=== PATIENT | male | born 1980 | race Caucasian/White ===

== ENCOUNTER 2017-10-04 23:29 | Inpatient (IN) | payer MEDICARE, MEDICAID, SELFPAY | END 2017-10-06 10:05 | disposition home or self-care (01) | DRG 639 | PROVIDERS: Admitting Provider Emergency Medicine; Emergency Provider Emergency Medicine; Family Provider Nurse Practitioner Family; Visit Provider Emergency Medicine | DX: E11.10 Type 2 diabetes mellitus with ketoacidosis without coma (principal); I10 Essential (primary) hypertension | CPT/HCPCS: 36415; 71020; 80048; 80053; 81001; 82009; 82150; 82550; 82553; 82803; 82947; 82962; 83690; 83735; 84100; 84484; 85025; 87275; 87276; 87486; 87581; 87633; 87798; 93005; 96365; 96367; 96375; 99285; J2405 ==

== ENCOUNTER 2017-12-13 17:33 | Emergency (ER) | payer MEDICARE, OTHER, SELFPAY ==
[2017-12-13 17:35] VITALS: BP 204/125; PULSE 135; RESP 28; O2SAT 100; BMI 23.0
--- NOTE | 2017-12-13 17:37 | XR_ITS ---
XR chest portable HISTORY: ITS.REASON: hyperglycemia, loss of consciousness ORDERING PHYSICIAN: Girish Bennett MD PATIENT AGE: 37 years COMPARISON: 10/14/2017 FINDINGS: Borderline cardiomegaly without failure.. The lungs are clear without infiltrates, suspicious nodules, or pleural effusions. No acute bony abnormalities. IMPRESSION: Borderline cardiomegaly otherwise negative
[2017-12-13 17:39] LABS: ABG Base Excess -30.1 mmol/L (-2.4-2.3); ABG HCO3 2.2 mmhg (22.0-26.0); ABG Oxygen Saturation 98 % (90-100); ABG PO2 136.7 mmhg (80-100); ABG TCO2 2.6 mmhg (23-27)
[2017-12-13 17:41] LABS: Allen's Test Acceptable; Oxygen ROOM AIR %; Source Right Radial
[2017-12-13 17:42] LABS: ABG PCO2 10.7 mmhg (35.0-45.0); ABG PH 6.94 mmol/L (7.35-7.45)
[2017-12-13 17:53] LABS: Basophils # 0.1 K/mm3 (0-0.2); Basophils % 0.4 % (0.1-2.0); Eosinophils # 0.1 K/mm3 (0.0-0.4); Eosinophils % 0.5 % (0.1-12.0); Hematocrit 49.5 % (42.0-52.0); Hemoglobin 13.4 g/dL (14.1-18.0); Lymphocytes # 3.4 K/mm3 (0.7-4.5); Lymphocytes % 12.8 K/mm3 (10-50); Mean Corpuscular Volume 114.8 fl (80-94); Mean Platelet Volume 10.7 fl (7.4-10.4); Monocytes % 3.9 % (1.7-9.3); Neutrophils # 21.7 K/mm3 (1.8-7.8); Neutrophils % 82.4 % (37.0-80.0); Platelet Count 320 K/mm3 (142-424); Red Blood Count 4.31 M/mm3 (4.60-6.20); Red Cell Distribution Width 12.6 % (11.5-17.5); White Blood Count 26.4 K/mm3 (4.8-10.8)
[2017-12-13 17:59] LABS: MANUAL DIFFERENTIAL MANUAL DIFFERENTIAL (MANUAL DIFF)
--- NOTE | 2017-12-13 18:05 | PC.NURSE ---
SPOKE WITH KIRSTEN ELLISON REGARDING INSULIN DRIP AND SODIUM BICARB DRIP ; RECEIVED ORDERS FOR 6 UNITS BEING OK TO START FOR INSULIN AND FOR 160MEQ PER HR MIXING ONE AMP OF SODIUM BICARB IN A LITER OF NORMAL SALINE BAG. [facility] N[facility] NOTIFIED AND INFORMATION GIVEN.
[2017-12-13 18:06] LABS: Acetone, Serum (Rapid) Moderate (None Detect)
[2017-12-13 18:30] VITALS: BP 172/81; PULSE 125; O2SAT 100
--- NOTE | 2017-12-13 18:37 | PC.NURSE ---
1837- spoke with lab called critical values but are required to re draw d/t hemolized.
[2017-12-13 18:42] LABS: Lymphocytes % 5 % (10-50); Macrocytosis 2+; Monocytes % 1 % (2-9); Neutrophils % 92 % (42-76); Platelet Estimate Slight Increase; Total Cells Counted 100
--- NOTE | 2017-12-13 18:48 | HMH.EDGENADL ---
ED Disposition Clinical Impression: Dehydration Diabetic ketoacidosis Qualifiers: Diabetes mellitus type: type 2 Diabetes mellitus complication detail: without coma Qualified Code(s): E11.10 - Type 2 diabetes mellitus with ketoacidosis without coma Change in mental status Qualifiers: Altered mental status type: unspecified Qualified Code(s): R41.82 - Altered mental status, unspecified Leukocytosis Qualifiers: Leukocytosis type: other Qualified Code(s): D72.828 - Other elevated white blood cell count Disposition: Xfer Short-Term Hosp Condition on Discharge: Serious Time of Disposition: 19:39 - Critical Care Critical Care Time: Yes Attestation: On 12/13/17, the high probability of a clinically significant, sudden or life threatening deterioration of the following system(s) required my full and direct attention, intervention and personal management. The time I documented below is in addition to time spent performing reported procedures but includes the following listed in this critical care notation. Total Critical Care Time: 90 Vital system(s) involved:: Central Nervous System, Metabolic Failure My critical care processes included: Assessment & monitoring of V/S, Initial and Re-exams, Data Review/Interpretation, Coordinating Care, Medication Orders and management, Documentation Medical Decision Making - Medical Records Medical records reviewed: Yes: I reviewed the patient's medical records. Vital Signs: 12/13/17 17:35 12/13/17 18:30 Pulse Rate [Right Radial] 135 H 125 H Respiratory Rate 28 H Blood Pressure [Right Arm] 204/125 172/81 Blood Pressure Mean [Right Arm] 151 111 Blood Pressure Source [Right Arm] Manual Cuff/ Doppler Blood Pressure Position [Right Arm] Supine 02 Sat by Pulse Oximetry 100 100 Oxygen Delivery Method Room Air Room Air - Lab Data Lab results reviewed: Yes: I reviewed the patient's lab results. Lab Results 12/13/17 17:36: Specimen Source Right radial, O2 % Room air, ABG pH 6.94 L*, ABG pCO2 10.7 L, ABG pO2 136.7 H, ABG HCO3 2.2 L, ABG Total CO2 2.6 L, ABG O2 Saturation 98, ABG Base Excess -30.1 L, Layton Test Acceptable 12/13/17 17:37: WBC 26.4 H*, RBC 4.31 L, Hgb 13.4 L, Hct 49.5, MCV 114.8 H, MCH 31.0, MCHC 27.0 L, RDW 12.6, Plt Count 320, MPV 10.7 H, Neut % (Auto) 82.4 H, Lymph % (Auto) 12.8, [place] % (Auto) 3.9, Eos % (Auto) 0.5, Baso % (Auto) 0.4, Neut # (Auto) 21.7 H, Lymph # (Auto) 3.4, [place] # (Auto) 1.0, Eos # (Auto) 0.1, Baso # (Auto) 0.1, Total Counted 100, Neutrophils % (Manual) 92 H, Lymphocytes % (Manual) 5 L, Monocytes % (Manual) 1 L, Metamyelocytes % 2.0 H, Platelet Estimate Slight increase, Macrocytosis 2+ 12/13/17 18:16: Urine Color Yellow, Urine Appearance Clear, Urine pH 5.5, Ur Specific [place] 1.020, Urine Protein 1+, Urine Glucose (UA) 3+, Urine Ketones 3+, Urine Blood Trace-i, Urine Nitrate Negative, Urine Bilirubin Negative, Urine Urobilinogen 0.2, Ur Leukocyte Esterase Negative 12/13/17 18:16: Urine Opiates Screen Negative, Ur Barbituates Screen Negative, Ur Phencyclidine Scrn Negative, Ur Amphetamines Screen Negative, U Methamphetamines Scrn Negative, U Benzodiazepines Scrn Negative, Urine Cocaine Screen Negative, U Marijuana (THC) Screen Negative 12/13/17 18:45: Sodium 148 H, Potassium 4.9, Chloride 103, Carbon Dioxide 9 L*, Anion Gap 40.9 H, BUN 59 H, Creatinine 3.60 H, Estimated Creat Clear 32, Estimated GFR 19 L*, Est GFR ( Amer) 23 L, Glucose 919 H*, Calcium 8.1 L, Total Bilirubin 0.5, AST 56 H, ALT 132 H, Alkaline Phosphatase 337 H, Total Creatine Kinase 97, CK-MB (CK-2) 1.6, CK-MB (CK-2) Rel Index 1.6, Troponin I < 0.02, Total Protein 5.8 L, Albumin 2.6 L, Globulin 3.2, Albumin/Globulin Ratio 0.8 L 12/13/17 18:45: Lactic Acid 7.7 H 12/13/17 : Acetone Level Moderate Result diagrams: 12/13/17 17:37 12/13/17 18:45 Orders (Tests/Meds): ED MEDICATIONS Generic Name Dose Route Start Last Admin Trade Name Freq PRN Reason Stop Dose Admin Sodium Chlor
--- NOTE | 2017-12-13 18:51 | ED_ITS ---
ED Disposition Clinical Impression: Dehydration Diabetic ketoacidosis Qualifiers: Diabetes mellitus type: type 2 Diabetes mellitus complication detail: without coma Qualified Code(s): E11.10 - Type 2 diabetes mellitus with ketoacidosis without coma Change in mental status Qualifiers: Altered mental status type: unspecified Qualified Code(s): R41.82 - Altered mental status, unspecified Leukocytosis Qualifiers: Leukocytosis type: other Qualified Code(s): D72.828 - Other elevated white blood cell count Disposition: Xfer Short-Term Hosp Condition on Discharge: Serious Time of Disposition: 19:39 - Critical Care Critical Care Time: Yes Attestation: On 12/13/17, the high probability of a clinically significant, sudden or life threatening deterioration of the following system(s) required my full and direct attention, intervention and personal management. The time I documented below is in addition to time spent performing reported procedures but includes the following listed in this critical care notation. Total Critical Care Time: 90 Vital system(s) involved:: Central Nervous System, Metabolic Failure My critical care processes included: Assessment & monitoring of V/S, Initial and Re-exams, Data Review/Interpretation, Coordinating Care, Medication Orders and management, Documentation Medical Decision Making - Medical Records Medical records reviewed: Yes: I reviewed the patient's medical records. Vital Signs: 12/13/17 17:35 12/13/17 18:30 Pulse Rate [Right Radial] 135 H 125 H Respiratory Rate 28 H Blood Pressure [Right Arm] 204/125 172/81 Blood Pressure Mean [Right Arm] 151 111 Blood Pressure Source [Right Arm] Manual Cuff/ Doppler Blood Pressure Position [Right Arm] Supine 02 Sat by Pulse Oximetry 100 100 Oxygen Delivery Method Room Air Room Air - Lab Data Lab results reviewed: Yes: I reviewed the patient's lab results. Lab Results 12/13/17 17:36: Specimen Source Right radial, O2 % Room air, ABG pH 6.94 L*, ABG pCO2 10.7 L, ABG pO2 136.7 H, ABG HCO3 2.2 L, ABG Total CO2 2.6 L, ABG O2 Saturation 98, ABG Base Excess -30.1 L, Layton Test Acceptable 12/13/17 17:37: WBC 26.4 H*, RBC 4.31 L, Hgb 13.4 L, Hct 49.5, MCV 114.8 H, MCH 31.0, MCHC 27.0 L, RDW 12.6, Plt Count 320, MPV 10.7 H, Neut % (Auto) 82.4 H, Lymph % (Auto) 12.8, [place] % (Auto) 3.9, Eos % (Auto) 0.5, Baso % (Auto) 0.4, Neut # (Auto) 21.7 H, Lymph # (Auto) 3.4, [place] # (Auto) 1.0, Eos # (Auto) 0.1, Baso # (Auto) 0.1, Total Counted 100, Neutrophils % (Manual) 92 H, Lymphocytes % (Manual) 5 L, Monocytes % (Manual) 1 L, Metamyelocytes % 2.0 H, Platelet Estimate Slight increase, Macrocytosis 2+ 12/13/17 18:16: Urine Color Yellow, Urine Appearance Clear, Urine pH 5.5, Ur Specific [place] 1.020, Urine Protein 1+, Urine Glucose (UA) 3+, Urine Ketones 3 +, Urine Blood Trace-i, Urine Nitrate Negative, Urine Bilirubin Negative, Urine Urobilinogen 0.2, Ur Leukocyte Esterase Negative 12/13/17 18:16: Urine Opiates Screen Negative, Ur Barbituates Screen Negative, Ur Phencyclidine Scrn Negative, Ur Amphetamines Screen Negative, U Methamphetamines Scrn Negative, U Benzodiazepines Scrn Negative, Urine Cocaine Screen Negative, U Marijuana (THC) Screen Negative 12/13/17 18:45: Sodium 148 H, Potassium 4.9, Chloride 103, Carbon Dioxide 9 L*, Anion Gap 40.9 H, BUN 59 H, Creatinine 3.60 H, Estimated Creat Clear 32, Estimated GFR 19 L*, Est GFR ( Amer) 23 L, Glucose 919 H*, Calcium 8.1 L , Total Bilirubin 0.5, AST 56 H, ALT 132 H, Alkaline Phosphatase 337 H, Total Creatine Ki
[2017-12-13 19:09] LABS: Alanine Aminotransferase 132 U/L (12-78); Albumin Level 2.6 gm/dL (3.4-5.0); Albumin/Globulin Ratio 0.8 (1.1-1.8); Alkaline Phosphatase 337 U/L (46-116); Aspartate Amino Transferase 56 U/L (15-37); Bilirubin,Total 0.5 mg/dL (0.2-1.0); Blood Urea Nitrogen 59 mg/dL (7-18); Calcium 8.1 mg/dL (8.5-10.1); Chloride 103 mmol/L (98-107); Creatine Kinase 97 U/L (39-308); Creatinine Clearance Estimated 32 mL/min (0-300); Estimated Glomerular Filt Rate 19 ml/min (>60); GFR (African American) 23 ML/MIN (>60); Globulin 3.2 gm/dl (1.3-3.2); Total Protein,Serum 5.8 gm/dL (6.4-8.2)
[2017-12-13 19:11] LABS: Carbon Dioxide 9 mmol/L (21.0-32.0)
[2017-12-13 19:12] LABS: Potassium 4.9 mmoL/L (3.5-5.1); Sodium 148 mmol/L (136-145)
[2017-12-13 19:15] LABS: Lactic Acid 7.7 mmol/L (0.4-2.0)
[2017-12-13 19:16] LABS: Microscopic, Urine URINE MICROSCOPIC (MICROSCOPIC)
[2017-12-13 19:21] LABS: Appearance,Urine CLEAR (Clear); Bilirubin,Urine Negative (Negative); Blood, Urine TRACE-I (Negative); Color,Urine YELLOW (Yellow); Glucose,Urine (UA) 3+ (Negative); Ketones,Urine 3+ (Negative); Leukocyte Esterase,Urine Negative (Negative); Nitrate,Urine Negative (Negative); PH,Urine 5.5 (5.0-8.5); Protein,Urine 1+ (Negative); Urobilinogen,Urine 0.2 EU/dl (0.2)
[2017-12-13 19:21] LABS: Anion Gap 40.9 mEq/L (5-15); Glucose 919 mg/dL (74-106)
[2017-12-13 19:30] LABS: ABG Base Excess -18.1 mmol/L (-2.4-2.3); ABG HCO3 8.4 mmhg (22.0-26.0); ABG Oxygen Saturation 95 % (90-100); ABG PH 7.29 mmol/L (7.35-7.45)
[2017-12-13 19:36] LABS: CKMB Relative Index 1.6 U/L (0-4.0); Creatine Kinase MB 1.6 mg/ml (0.0-3.6); Troponin I < 0.02 ng/ml (0.00-0.06)
[2017-12-13 19:36] LABS: Amphetamine/Metha Screen,Urine Negative ng/mL (<1000); Barbiturates Screen,Urine Negative ng/mL (<200); Benzodiazepines Screen,Urine Negative ng/mL (200); Cannabinoid Screen,Urine Negative ng/mL (<50); Cocaine Screen,Urine Negative ng/g (<300); Methadone Screen,Urine Negative ng/mL (<300); Opiate Screen,Urine Negative ng/mL (<300); Phencyclidine Screen,Urine Negative ng/mL (<25)
[2017-12-13 19:53] VITALS: BP 100/48; PULSE 109; RESP 28; TEMP 36.7; O2SAT 99
--- NOTE | 2017-12-13 19:54 | PC.NURSE ---
ARRANGEMENTS MAD FOR TRANSFER TO [facility] TO SERVICES DR CABRALES WITH DX DKA
[2017-12-13 20:05] LABS: Bacteria,Urine Trace /lpf; Squamous Epithelial Cell,Urine Occasional #/hpf (0-5); White Blood Cell Casts,Urine Occasional #/lpf (0)
[2017-12-13 21:26] VITALS: BP 108/52; PULSE 106; RESP 28; TEMP 37.7; O2SAT 94
[2017-12-13 22:00] VITALS: BP 108/52; PULSE 106; RESP 28; TEMP 37.3; O2SAT 94
[2017-12-13 22:48] LABS: Reflex Lactic Add Lactic Reflex
[2017-12-14 04:20] LABS: Allen's Test Patient Unable; Oxygen room air %
[2017-12-14 04:21] LABS: ABG PCO2 17.8 mmhg (35.0-45.0)
[2017-12-14 09:58] LABS: POC Glucose,Bedside > 600 mg/dL
[2017-12-14 09:58] LABS: POC Glucose,Bedside > 600 mg/dL
[2018-01-05 14:01] LABS: POC Glucose,Bedside > 600 mg/dL (70-110)
== END 2017-12-13 22:01 | disposition short-term general hospital (02) ==
PROVIDERS: Emergency Medicine; Emergency Provider Emergency Medicine; Family Provider Emergency Medicine
DX: E11.10 Type 2 diabetes mellitus with ketoacidosis without coma (principal); E86.0 Dehydration; R41.82 Altered mental status, unspecified; D72.828 Other elevated white blood cell count; Z88.0 Allergy status to penicillin; Z79.4 Long term (current) use of insulin
CPT/HCPCS: 71045; 80053; 80305; 81001; 82009; 82550; 82553; 82803; 82962; 83605; 84484; 85007; 85025; 87040; 93005; 93041; 96365; 96366; 96367; 96375; 96376; 99283; 99284

== ENCOUNTER 2017-12-19 19:36 | Emergency (ER) | payer MEDICARE, OTHER, SELFPAY ==
[2017-12-19 23:00] VITALS: BP 178/108; PULSE 93; RESP 20; TEMP 36.8; O2SAT 99; BMI 58.6
[2017-12-19 23:32] LABS: UTC Influenza A Antigen Negative (Negative); UTC Influenza B Antigen Negative (Negative)
--- NOTE | 2017-12-19 23:37 | HMH.EDUTC ---
[facility] [place] Disposition Clinical Impression: Influenza-like illness Disposition: Left Against Medical Advice Condition on Discharge: Fair Additional Instructions: * As we discussed, these are flu like symptoms but considering your recent inpatient admission, past medical history, blood sugar of 410, negative flu test you need further evaluation to ensure this is not something else causing your symptoms. I recommend you be seen in ER. I understand wanting to get your kids home but if you get worse, you can go down hill fast. Seek treatment immediately for new or worsening symptoms. Call PCP first thing in the morning. You can be there at 9am, tell them you were here and they will work you in. Monitor blood sugar closely tonight. Referrals: Ange Kuhn PA [Primary Care Provider] - (be there at 9am and they will fit you in. Tell them you were here tonight, we recommended ER evaluation but you declined. ) Time of Disposition: 00:10 Medical Decision Making Vital Signs: 12/19/17 23:00 12/20/17 00:10 Temperature 98.3 F 98 F Temperature Source Temporal Artery Scan Pulse Rate 87 Pulse Rate [Right Radial] 93 H Respiratory Rate 20 20 Blood Pressure 168/91 Blood Pressure [Right Arm] 178/108 Blood Pressure Mean [Right Arm] 131 Blood Pressure Source [Right Arm] Automatic Cuff Blood Pressure Position [Right Arm] Sitting 02 Sat by Pulse Oximetry 99 Oxygen Delivery Method Room Air - Lab Data Lab results reviewed: Yes: I reviewed the patient's lab results. Lab Results 12/19/17 23:02: Influenza Type A Ag Negative, Influenza Type B Ag Negative 12/19/17 23:48: POC Glucose 410 - Michael Inquiry Pt receiving controlled substance: No - Reevaluation(s) Reevaluation #1: HPI, exam, possible differentials, results and risks associated with not treating each differential discussed at length with patient and . Discussed further evaluation to rule out other causes of symptoms before contributing this entirely to flu like illness. pt refusing further workup tonight rather in UTC or ER. Pt not concerned about blood sugar. Administered novolog on his own after results given to him. Wanting to leave and get children to bed. will call PCP in morning but pt won't agree to any further evaluation tonight despite the risk of acutely worsening tonight. [facility] [place] HPI - General Stated complaint: body pain Time Seen by Provider: 12/19/17 23:37 Mode of Arrival: Family Vehicle Source of Information: Patient Limitations: No Limitations Description of Symptoms (Recalled from Triage Doc. by RN): PT C/O FLU LIKE SYMPTOMS. HEENT Symptoms (Recalled from RN notes): Yes (FLU LIKE SYMPTOMS) Resp Symptoms (Recalled from RN notes): No Skin Symptoms (Recalled from RN notes): No MS Symptoms (Recalled from RN notes): No Functional Status (Recalled from RN notes): NA - History of Present Illness Provider Complaint: c/o I think I have the flu . worsening bodyaches (hx of diabetic neuropathy and reports chronically hurts all over) and fatigue starting 4-5 hours ago. Hasn't taken or tried anything for symptoms. Exposed to flu less then one week ago. Hx of Type I DM. Admitted 12/14-12/17 w/ DKA. Blood sugars today 100-500. pt not alarmed and reports a simple cold makes them go that high . Last FSBG at 3pm and doesn't remember results. Doesn't feel as bad as I felt when I came in then - Related Data Home Medications Medication Instructions Recorded Confirmed Gabapentin [Gabapentin 800mg Tab] 800 mg PO QID 12/19/17 12/19/17 Insulin Aspart [Novolog] 100 unit SQ DAILY 12/19/17 12/19/17 Insulin Glargine,Hum.rec.anlog 44 unit SQ DAILY 12/19/17 12/19/17 [Lantus Insulin 100units/mL 10mL vial] Allergies Allergy/AdvReac Type Severity Reaction Status Date / Time Penicillins [PENICILLINS] Allergy Severe I-HIVES Verified 12/13/17 17:45 - Worker's Comp Is this a Worker's Comp case?: No [facility] History I have reviewed the patient's pa
--- NOTE | 2017-12-19 23:46 | ED_ITS ---
[facility] [place] [facility] [place] Clinical Impression: Influenza-like illness Disposition: Left Against Medical Advice Condition on Discharge: Fair Additional Instructions: * As we discussed, these are flu like symptoms but considering your recent inpatient admission, past medical history, blood sugar of 410, negative flu test you need further evaluation to ensure this is not something else causing your symptoms. I recommend you be seen in ER. I understand wanting to get your kids home but if you get worse, you can go down hill fast. Seek treatment immediately for new or worsening symptoms. Call PCP first thing in the morning. You can be there at 9am, tell them you were here and they will work you in. Monitor blood sugar closely tonight. Referrals: Ange Kuhn PA [Primary Care Provider] - (be there at 9am and they will fit you in. Tell them you were here tonight, we recommended ER evaluation but you declined. ) Time of Disposition: 00:10 Medical Decision Making Vital Signs: 12/19/17 23:00 12/20/17 00:10 Temperature 98.3 F 98 F Temperature Source Temporal Artery Scan Pulse Rate 87 Pulse Rate [Right Radial] 93 H Respiratory Rate 20 20 Blood Pressure 168/91 Blood Pressure [Right Arm] 178/108 Blood Pressure Mean [Right Arm] 131 Blood Pressure Source [Right Arm] Automatic Cuff Blood Pressure Position [Right Arm] Sitting 02 Sat by Pulse Oximetry 99 Oxygen Delivery Method Room Air - Lab Data Lab results reviewed: Yes: I reviewed the patient's lab results. Lab Results 12/19/17 23:02: Influenza Type A Ag Negative, Influenza Type B Ag Negative 12/19/17 23:48: POC Glucose 410 - Michael Inquiry Pt receiving controlled substance: No - Reevaluation(s) Reevaluation #1: HPI, exam, possible differentials, results and risks associated with not treating each differential discussed at length with patient and . Discussed further evaluation to rule out other causes of symptoms before contributing this entirely to flu like illness. pt refusing further workup tonight rather in UTC or ER. Pt not concerned about blood sugar. Administered novolog on his own after results given to him. Wanting to leave and get children to bed. will call PCP in morning but pt won't agree to any further evaluation tonight despite the risk of acutely worsening tonight. [facility] [place] - General Stated complaint: body pain Time Seen by Provider: 12/19/17 23:37 Mode of Arrival: Family Vehicle Source of Information: Patient Limitations: No Limitations Description of Symptoms (Recalled from Triage Doc. by RN): PT C/O FLU LIKE SYMPTOMS. HEENT Symptoms (Recalled from RN notes): Yes (FLU LIKE SYMPTOMS) Resp Symptoms (Recalled from RN notes): No Skin Symptoms (Recalled from RN notes): No MS Symptoms (Recalled from RN notes): No Functional Status (Recalled from RN notes): NA - History of Present Illness Provider Complaint: c/o I think I have the flu . worsening bodyaches (hx of diabetic neuropathy and reports chronically hurts all over) and fatigue starting 4-5 hours ago. Hasn't taken or tried anything for symptoms. Exposed to flu less then one week ago. Hx of Type I DM. Admitted 12/14-12/17 w/ DKA. Blood sugars today 100-500. pt not alarmed and reports a simple cold makes them go that high . Last FSBG at 3pm and doesn't remember results. Doesn't feel as bad as I felt when I came in then - Related Data Home Medications Medication Instructions Recorded Confirmed
[2017-12-19 23:55] LABS: POC Glucose,Bedside 410 mg/dL
[2017-12-20 00:10] VITALS: BP 168/91; PULSE 87; RESP 20; TEMP 36.6; O2SAT 99
== END 2017-12-20 00:11 | disposition left against medical advice (07) ==
PROVIDERS: Emergency Provider Nurse Practitioner Family; Family Provider Emergency Medicine; PCP Physician Assistant
DX: J10.1 Influenza due to other identified influenza virus with other respiratory manifestations (principal); E10.65 Type 1 diabetes mellitus with hyperglycemia; E10.40 Type 1 diabetes mellitus with diabetic neuropathy, unspecified; Z79.4 Long term (current) use of insulin; Z88.0 Allergy status to penicillin
CPT/HCPCS: G0463; 82962; 87804; 99202

== ENCOUNTER 2017-12-28 20:44 | Emergency (ER) | payer MEDICARE, OTHER, SELFPAY ==
[2017-12-28 20:48] VITALS: BP 177/95; PULSE 105; RESP 22; TEMP 36.6; O2SAT 98; BMI 28.8
[2017-12-28 21:10] LABS: Basophils # 0.1 K/mm3 (0-0.2); Basophils % 0.5 % (0.1-2.0); Eosinophils # 0.3 K/mm3 (0.0-0.4); Eosinophils % 2.2 % (0.1-12.0); Hematocrit 44.1 % (42.0-52.0); Hemoglobin 13.5 g/dL (14.1-18.0); Lymphocytes # 2.3 K/mm3 (0.7-4.5); Lymphocytes % 17.6 K/mm3 (10-50); Mean Corpuscular HGB Conc 30.5 g/dL (31.8-35.4); Mean Corpuscular Hemoglobin 31.5 pg (27.0-31.2); Mean Corpuscular Volume 103.1 fl (80-94); Mean Platelet Volume 9.4 fl (7.4-10.4); Monocytes # 0.3 K/mm3 (0.1-1.0); Monocytes % 2.6 % (1.7-9.3); Neutrophils # 9.9 K/mm3 (1.8-7.8); Neutrophils % 77.2 % (37.0-80.0); Platelet Count 381 K/mm3 (142-424); Red Blood Count 4.28 M/mm3 (4.60-6.20); Red Cell Distribution Width 12.9 % (11.5-17.5); White Blood Count 12.9 K/mm3 (4.8-10.8)
--- NOTE | 2017-12-28 21:15 | HMH.EDGENADL ---
ED Disposition Clinical Impression: Hyperglycemia, Renal insufficiency Diabetes mellitus Qualifiers: Diabetes mellitus type: type 1 Diabetes mellitus complication status: with kidney complications Diabetes mellitus complication detail: with chronic kidney disease Chronic kidney disease stage: unspecified stage Qualified Code(s): E10.22 - Type 1 diabetes mellitus with diabetic chronic kidney disease Disposition: Home, Self-Care Condition on Discharge: Good Instructions: DI for Hyperglycemia -- Adult Additional Instructions: call pcp and endo in am Referrals: Ange Kuhn PA [Primary Care Provider] - - Critical Care Critical Care Time: No Attestation: On 12/28/17, the high probability of a clinically significant, sudden or life threatening deterioration of the following system(s) required my full and direct attention, intervention and personal management. The time I documented below is in addition to time spent performing reported procedures but includes the following listed in this critical care notation. Medical Decision Making - Medical Records Medical records reviewed: Yes: I reviewed the patient's medical records. Vital Signs: 12/28/17 20:48 12/28/17 23:12 Temperature 97.9 F 98.2 F Temperature Source Oral Oral Pulse Rate [Right Radial] 105 H 89 Respiratory Rate 22 16 Blood Pressure [Right Arm] 177/95 138/82 Blood Pressure Mean [Right Arm] 122 100 Blood Pressure Source [Right Arm] Automatic Cuff Automatic Cuff Blood Pressure Position [Right Arm] Sitting Sitting 02 Sat by Pulse Oximetry 98 94 L Oxygen Delivery Method Room Air Nasal Cannula - Lab Data Lab results reviewed: Yes: I reviewed the patient's lab results. Lab Results 12/28/17 21:00: WBC 12.9 H, RBC 4.28 L, Hgb 13.5 L, Hct 44.1, MCV 103.1 H, MCH 31.5 H, MCHC 30.5 L, RDW 12.9, Plt Count 381, MPV 9.4, Neut % (Auto) 77.2, Lymph % (Auto) 17.6, [place] % (Auto) 2.6, Eos % (Auto) 2.2, Baso % (Auto) 0.5, Neut # (Auto) 9.9 H, Lymph # (Auto) 2.3, [place] # (Auto) 0.3, Eos # (Auto) 0.3, Baso # (Auto) 0.1 12/28/17 21:00: Sodium 132 L, Potassium 4.7, Chloride 95 L, Carbon Dioxide 16 L, Anion Gap 25.7 H, BUN 46 H, Creatinine 2.92 H, Estimated Creat Clear 39, Estimated GFR 25 L, Est GFR ( Amer) 30 L, Glucose 738 H*, Calcium 8.8, Total Bilirubin 0.4, AST 53 H, ALT 123 H, Alkaline Phosphatase 341 H, Total Protein 6.9, Albumin 3.4, Globulin 3.5 H, Albumin/Globulin Ratio 1.0 L 12/28/17 21:00: Acetone Level None detected 12/28/17 21:15: Specimen Source Left radial, O2 % room air, ABG pH 7.28 L, ABG pCO2 26.6 L, ABG pO2 88.4, ABG HCO3 12.2 L, ABG Total CO2 13.1 L, ABG O2 Saturation 96, ABG Base Excess -14.5 L, Layton Test Acceptable 12/28/17 21:50: Urine Color Yellow, Urine Appearance Clear, Urine pH 5.5, Ur Specific [place] 1.015, Urine Protein 1+, Urine Glucose (UA) 3+, Urine Ketones 2+, Urine Blood Trace-i, Urine Nitrate Negative, Urine Bilirubin Negative, Urine Urobilinogen 0.2, Ur Leukocyte Esterase Negative, Urine RBC 3-5, Urine WBC Occasional, Ur Squamous Epith Cells Occasional, Urine Bacteria Trace, Urine Mucus Trace 12/28/17 23:19: Sodium 135 L, Potassium 3.9, Chloride 105, Carbon Dioxide 21 D, Anion Gap 12.9, BUN 38 H, Creatinine 2.26 H D, Estimated Creat Clear 51, Estimated GFR 33 L, Est GFR ( Amer) 40 L D, Glucose 414 H* D Result diagrams: 12/28/17 21:00 12/28/17 23:19 Orders (Tests/Meds): ED MEDICATIONS Generic Name Dose Route Start Last Admin Trade Name Freq PRN Reason Stop Dose Admin Sodium Chloride 1,000 mls @ 999 mls/hr 12/28/17 23:30 12/28/17 23:22 Sod Chlor 0.9% 1000ml Bag IV 12/29/17 00:30 999 mls/hr .Q1H1M CASTILLO Administration Discontinued Medications Generic Name Dose Route Start Last Admin Trade Name Freq PRN Reason Stop Dose Admin Sodium Chloride 1,000 mls @ 999 mls/hr 12/28/17 21:00 12/28/17 21:01 Sod Chlor 0.9% 1000ml Bag IV 12/28/17 22:00 999 mls/hr .Q1H1M CASTILLO Administration Sodium Chlori
[2017-12-28 21:25] LABS: ABG Base Excess -14.5 mmol/L (-2.4-2.3); ABG HCO3 12.2 mmhg (22.0-26.0); ABG Oxygen Saturation 96 % (90-100); ABG PCO2 26.6 mmhg (35.0-45.0); ABG PH 7.28 mmol/L (7.35-7.45); ABG PO2 88.4 mmhg (80-100); ABG TCO2 13.1 mmhg (23-27)
[2017-12-28 21:26] LABS: Allen's Test Acceptable; Oxygen room air %
[2017-12-28 21:27] LABS: Source Left Radial
[2017-12-28 21:28] LABS: Alanine Aminotransferase 123 U/L (12-78); Albumin Level 3.4 gm/dL (3.4-5.0); Alkaline Phosphatase 341 U/L (46-116); Anion Gap 25.7 mEq/L (5-15); Aspartate Amino Transferase 53 U/L (15-37); Bilirubin,Total 0.4 mg/dL (0.2-1.0); Blood Urea Nitrogen 46 mg/dL (7-18); Calcium 8.8 mg/dL (8.5-10.1); Carbon Dioxide 16 mmol/L (21.0-32.0); Chloride 95 mmol/L (98-107); Creatinine Clearance Estimated 39 mL/min (0-300); Creatinine,Serum 2.92 mg/dL (0.70-1.30); Estimated Glomerular Filt Rate 25 ml/min (>60); GFR (African American) 30 ML/MIN (>60); Globulin 3.5 gm/dl (1.3-3.2); Potassium 4.7 mmoL/L (3.5-5.1); Sodium 132 mmol/L (136-145); Total Protein,Serum 6.9 gm/dL (6.4-8.2)
[2017-12-28 21:32] LABS: Glucose 738 mg/dL (74-106)
--- NOTE | 2017-12-28 21:33 | ED_ITS ---
ED Disposition Clinical Impression: Hyperglycemia, Renal insufficiency Diabetes mellitus Qualifiers: Diabetes mellitus type: type 1 Diabetes mellitus complication status: with kidney complications Diabetes mellitus complication detail: with chronic kidney disease Chronic kidney disease stage: unspecified stage Qualified Code(s): E10.22 - Type 1 diabetes mellitus with diabetic chronic kidney disease Disposition: Home, Self-Care Condition on Discharge: Good Instructions: DI for Hyperglycemia -- Adult Additional Instructions: call pcp and endo in am Referrals: Ange Kuhn PA [Primary Care Provider] - - Critical Care Critical Care Time: No Attestation: On 12/28/17, the high probability of a clinically significant, sudden or life threatening deterioration of the following system(s) required my full and direct attention, intervention and personal management. The time I documented below is in addition to time spent performing reported procedures but includes the following listed in this critical care notation. Medical Decision Making - Medical Records Medical records reviewed: Yes: I reviewed the patient's medical records. Vital Signs: 12/28/17 20:48 12/28/17 23:12 Temperature 97.9 F 98.2 F Temperature Source Oral Oral Pulse Rate [Right Radial] 105 H 89 Respiratory Rate 22 16 Blood Pressure [Right Arm] 177/95 138/82 Blood Pressure Mean [Right Arm] 122 100 Blood Pressure Source [Right Arm] Automatic Cuff Automatic Cuff Blood Pressure Position [Right Arm] Sitting Sitting 02 Sat by Pulse Oximetry 98 94 L Oxygen Delivery Method Room Air Nasal Cannula - Lab Data Lab results reviewed: Yes: I reviewed the patient's lab results. Lab Results 12/28/17 21:00: WBC 12.9 H, RBC 4.28 L, Hgb 13.5 L, Hct 44.1, MCV 103.1 H, MCH 31.5 H, MCHC 30.5 L, RDW 12.9, Plt Count 381, MPV 9.4, Neut % (Auto) 77.2, Lymph % (Auto) 17.6, [place] % (Auto) 2.6, Eos % (Auto) 2.2, Baso % (Auto) 0.5, Neut # (Auto) 9.9 H, Lymph # (Auto) 2.3, [place] # (Auto) 0.3, Eos # (Auto) 0.3, Baso # (Auto) 0.1 12/28/17 21:00: Sodium 132 L, Potassium 4.7, Chloride 95 L, Carbon Dioxide 16 L , Anion Gap 25.7 H, BUN 46 H, Creatinine 2.92 H, Estimated Creat Clear 39, Estimated GFR 25 L, Est GFR ( Amer) 30 L, Glucose 738 H*, Calcium 8.8, Total Bilirubin 0.4, AST 53 H, ALT 123 H, Alkaline Phosphatase 341 H, Total Protein 6.9, Albumin 3.4, Globulin 3.5 H, Albumin/Globulin Ratio 1.0 L 12/28/17 21:00: Acetone Level None detected 12/28/17 21:15: Specimen Source Left radial, O2 % room air, ABG pH 7.28 L, ABG pCO2 26.6 L, ABG pO2 88.4, ABG HCO3 12.2 L, ABG Total CO2 13.1 L, ABG O2 Saturation 96, ABG Base Excess -14.5 L, Layton Test Acceptable 12/28/17 21:50: Urine Color Yellow, Urine Appearance Clear, Urine pH 5.5, Ur Specific [place] 1.015, Urine Protein 1+, Urine Glucose (UA) 3+, Urine Ketones 2 +, Urine Blood Trace-i, Urine Nitrate Negative, Urine Bilirubin Negative, Urine Urobilinogen 0.2, Ur Leukocyte Esterase Negative, Urine RBC 3-5, Urine WBC Occasional, Ur Squamous Epith Cells Occasional, Urine Bacteria Trace, Urine Mucus Trace 12/28/17 23:19: Sodium 135 L, Potassium 3.9, Chloride 105, Carbon Dioxide 21 D , Anion Gap 12.9, BUN 38 H, Creatinine 2.26 H D, Estimated Creat Clear 51, Estimated GFR 33 L, Est GFR ( Amer) 40 L D, Glucose 414 H* D Result diagrams: 12/28/17 21:00 12/28/17 23:19 Orders (Tests/Meds): ED MEDICATIONS Generic Name Dose Route Start Last Admin Trade Name Freq PRN Reason Stop Dose A
--- NOTE | 2017-12-28 21:36 | PC.NURSE ---
TOOK CALL FROM LAB CALLING IN CRITICAL GLUCOSE OF 738, NOTIFIED
[2017-12-28 21:50] LABS: Acetone, Serum (Rapid) None Detected (None Detect)
[2017-12-28 21:58] LABS: Microscopic, Urine URINE MICROSCOPIC (MICROSCOPIC)
[2017-12-28 22:01] LABS: Appearance,Urine CLEAR (Clear); Bilirubin,Urine Negative (Negative); Blood, Urine TRACE-I (Negative); Color,Urine YELLOW (Yellow); Glucose,Urine (UA) 3+ (Negative); Ketones,Urine 2+ (Negative); Leukocyte Esterase,Urine Negative (Negative); Nitrate,Urine Negative (Negative); PH,Urine 5.5 (5.0-8.5); Protein,Urine 1+ (Negative); Specific Gravity, Urine 1.015 (1.005-1.030); Urobilinogen,Urine 0.2 EU/dl (0.2)
[2017-12-28 22:10] LABS: Bacteria,Urine Trace /lpf; Mucus,Urine Trace /lpf; Squamous Epithelial Cell,Urine Occasional #/hpf (0-5); WBC,Urine Occasional #/hpf (0-3)
[2017-12-28 23:12] VITALS: BP 138/82; PULSE 89; RESP 16; TEMP 36.8; O2SAT 94
[2017-12-28 23:32] LABS: Anion Gap 12.9 mEq/L (5-15); Blood Urea Nitrogen 38 mg/dL (7-18); Carbon Dioxide 21 mmol/L (21.0-32.0); Chloride 105 mmol/L (98-107); Creatinine Clearance Estimated 51 mL/min (0-300); Creatinine,Serum 2.26 mg/dL (0.70-1.30); Estimated Glomerular Filt Rate 33 ml/min (>60); GFR (African American) 40 ML/MIN (>60); Potassium 3.9 mmoL/L (3.5-5.1); Sodium 135 mmol/L (136-145)
[2017-12-28 23:33] LABS: Glucose 414 mg/dL (74-106)
--- NOTE | 2017-12-28 23:34 | PC.NURSE ---
Addendum entered by Thu Angel RN 12/28/17 23:35: Original Note: CRITICAL CALLED IN FROM LAB, SUGAR [id number]
[2017-12-29 00:21] VITALS: BP 136/78; PULSE 82; RESP 16; TEMP 36.9; O2SAT 98
[2018-01-04 15:04] LABS: POC Glucose,Bedside 373 mg/dL (70-110)
[2018-01-04 15:05] LABS: POC Glucose,Bedside > 600 mg/dL (70-110)
== END 2017-12-29 00:21 | disposition home or self-care (01) ==
PROVIDERS: Emergency Provider Emergency Medicine; Family Provider Emergency Medicine; PCP Physician Assistant
DX: E10.65 Type 1 diabetes mellitus with hyperglycemia (principal); Z79.4 Long term (current) use of insulin; N28.9 Disorder of kidney and ureter, unspecified; E10.22 Type 1 diabetes mellitus with diabetic chronic kidney disease; Z88.0 Allergy status to penicillin
CPT/HCPCS: 80048; 80053; 81001; 82009; 82803; 82962; 85025; 96365; 96366; 96374; 96375; 96376; 99283

== ENCOUNTER 2018-01-16 20:59 | Emergency (ER) | payer MEDICARE, OTHER, SELFPAY ==
[2018-01-16 21:06] VITALS: BP 192/113; PULSE 99; RESP 16; TEMP 36.9; O2SAT 95; BMI 26.6
--- NOTE | 2018-01-16 21:18 | CT_ITS ---
CT abdomen pelvis wo con CLINICAL INDICATION: Generalized abdominal pain ITS.REASON: pain ORDERING PHYSICIAN: Robby Katz MD PATIENT AGE: 37 years COMPARISON: None TECHNIQUE: Axial images obtained with sagittal and coronal reformats. PROCEDURE: Oral Contrast: None IV Contrast: None . FINDINGS: Lower thorax: No acute finding ABDOMEN: Liver: No masses or biliary dilatation. Gallbladder: Nondistended. No radio opaque stones. Pancreas: No masses or peripancreatic fluid collections. Spleen: Unremarkable. Adrenals: Unremarkable Kidneys/ureters: No masses. No renal calculi. No hydronephrosis. No perinephric fluid collections. No ureteral dilatation or obvious ureteral calculi. Stomach bowel: Nondistended. No obvious mass or thickening. Appendix: No evidence of appendicitis. PELVIS: Reproductive: Calcified seminal vesicles Bladder: Mildly distended urinary bladder ABDOMEN & PELVIS: Peritoneum: No abnormal fluid collections. No obvious inflammatory changes. No free air. Lymph nodes: No enlarged lymph nodes apparent. Vasculature: No evidence of abdominal aortic aneurysm. No retroperitoneal hemorrhage evident. Bones: No acute fracture IMPRESSION: No acute intra-abdominal or pelvic findings
[2018-01-16 21:41] LABS: Basophils % 0.6 % (0.1-2.0); Eosinophils % 0.8 % (0.1-12.0); Hematocrit 42.1 % (42.0-52.0); Hemoglobin 13.1 g/dL (14.1-18.0); Lymphocytes # 1.1 K/mm3 (0.7-4.5); Lymphocytes % 31.4 K/mm3 (10-50); Mean Corpuscular HGB Conc 31.1 g/dL (31.8-35.4); Mean Corpuscular Hemoglobin 32.3 pg (27.0-31.2); Mean Corpuscular Volume 103.9 fl (80-94); Mean Platelet Volume 9.2 fl (7.4-10.4); Monocytes # 0.1 K/mm3 (0.1-1.0); Monocytes % 3.3 % (1.7-9.3); Neutrophils # 2.3 K/mm3 (1.8-7.8); Neutrophils % 63.8 % (37.0-80.0); Platelet Count 227 K/mm3 (142-424); Red Blood Count 4.06 M/mm3 (4.60-6.20); Red Cell Distribution Width 13.2 % (11.5-17.5); White Blood Count 3.6 K/mm3 (4.8-10.8)
[2018-01-16 21:56] LABS: Strep Scrn Group A (Rapid) Negative (Negative)
[2018-01-16 21:59] LABS: Alanine Aminotransferase 610 U/L (12-78); Albumin Level 2.8 gm/dL (3.4-5.0); Albumin/Globulin Ratio 0.8 (1.1-1.8); Alkaline Phosphatase 802 U/L (46-116); Amylase 42 U/L (25-125); Anion Gap 21.4 mEq/L (5-15); Bilirubin,Total 1.2 mg/dL (0.2-1.0); Blood Urea Nitrogen 38 mg/dL (7-18); Calcium 8.6 mg/dL (8.5-10.1); Carbon Dioxide 21 mmol/L (21.0-32.0); Chloride 96 mmol/L (98-107); Creatinine Clearance Estimated 46 mL/min (0-300); Creatinine,Serum 2.47 mg/dL (0.70-1.30); Estimated Glomerular Filt Rate 30 ml/min (>60); GFR (African American) 36 ML/MIN (>60); Globulin 3.7 gm/dl (1.3-3.2); Lipase 374 u/L (73-393); Potassium 4.4 mmoL/L (3.5-5.1); Sodium 134 mmol/L (136-145); Total Protein,Serum 6.5 gm/dL (6.4-8.2)
[2018-01-16 22:04] LABS: Glucose 772 mg/dL (74-106)
--- NOTE | 2018-01-16 22:05 | PC.NURSE ---
glucose critical [address] morley and RN
[2018-01-16 22:14] LABS: Acetone, Serum (Rapid) None Detected (None Detect)
[2018-01-16 22:26] LABS: Aspartate Amino Transferase 1591 U/L (15-37)
--- NOTE | 2018-01-16 23:24 | [facility]H.EDNVD ---
ED Disposition Clinical Impression: Hyperglycemia, Renal insufficiency Diabetes mellitus Qualifiers: Diabetes mellitus type: type 1 Diabetes mellitus complication status: with unspecified complications Qualified Code(s): E10.8 - Type 1 diabetes mellitus with unspecified complications Disposition: Home, Self-Care Condition on Discharge: Good Instructions: DI for Acute Abdomen Additional Instructions: fluids and call pcp for follow up Referrals: Hola Tucker APRN [Primary Care Provider] - - Critical Care Critical Care Time: No Attestation: On 01/16/18, the high probability of a clinically significant, sudden or life threatening deterioration of the following system(s) required my full and direct attention, intervention and personal management. The time I documented below is in addition to time spent performing reported procedures but includes the following listed in this critical care notation. Medical Decision Making - Medical Records Medical records reviewed: Yes: I reviewed the patient's medical records. - Michael Inquiry Pt receiving controlled substance: No Vital Signs: 01/16/18 21:06 01/17/18 01:48 Temperature 98.5 F 97.6 F Temperature Source Oral Oral Pulse Rate [Left Radial] 99 H 86 Respiratory Rate 16 18 Blood Pressure [Right Arm] 192/113 155/93 Blood Pressure Mean [Right Arm] 139 113 Blood Pressure Source [Right Arm] Automatic Cuff Automatic Cuff Blood Pressure Position [Right Arm] Sitting Left Lateral 02 Sat by Pulse Oximetry 95 96 Oxygen Delivery Method Room Air Room Air - Lab Data Lab results reviewed: Yes: I reviewed the patient's lab results. Lab Results 01/16/18 21:20: WBC 3.6 L, RBC 4.06 L, Hgb 13.1 L, Hct 42.1, MCV 103.9 H, MCH 32.3 H, MCHC 31.1 L, RDW 13.2, Plt Count 227, MPV 9.2, Neut % (Auto) 63.8, Lymph % (Auto) 31.4, [place] % (Auto) 3.3, Eos % (Auto) 0.8, Baso % (Auto) 0.6, Neut # (Auto) 2.3, Lymph # (Auto) 1.1, [place] # (Auto) 0.1, Eos # (Auto) 0.0, Baso # (Auto) 0.0 01/16/18 21:20: Sodium 134 L, Potassium 4.4, Chloride 96 L, Carbon Dioxide 21, Anion Gap 21.4 H, BUN 38 H, Creatinine 2.47 H, Estimated Creat Clear 46, Estimated GFR 30 L, Est GFR ( Amer) 36 L, Glucose 772 H*, Calcium 8.6, Total Bilirubin 1.2 H, AST 1591 H*, ALT 610 H*, Alkaline Phosphatase 802 H, Total Protein 6.5, Albumin 2.8 L, Globulin 3.7 H, Albumin/Globulin Ratio 0.8 L, Amylase 42, Lipase 374, Acetone Level None detected 01/16/18 21:20: Influenza Type A Ag Negative, Influenza Type B Ag Negative, Group A Strep Rapid Negative 01/16/18 23:37: POC Glucose 385 01/16/18 23:48: Urine Color Yellow, Urine Appearance Clear, Urine pH 5.5, Ur Specific [place] 1.015, Urine Protein 2+, Urine Glucose (UA) 3+, Urine Ketones 1+, Urine Blood 1+, Urine Nitrate Negative, Urine Bilirubin Negative, Urine Urobilinogen 0.2, Ur Leukocyte Esterase Negative, Urine RBC 3-5, Urine WBC Occasional, Urine Bacteria 1+ 01/17/18 00:45: Sodium 139, Potassium 4.1, Chloride 105, Carbon Dioxide 22, Anion Gap 16.1 H, BUN 32 H, Creatinine 2.13 H, Estimated Creat Clear 53, Estimated GFR 36 L, Est GFR ( Amer) 43 L, Glucose 368 H D Result diagrams: 01/16/18 21:20 01/17/18 00:45 Orders (Tests/Meds): ED MEDICATIONS Generic Name Dose Route Start Last Admin Trade Name Freq PRN Reason Stop Dose Admin Lactated Ringer's 1,000 mls @ 999 mls/hr 01/17/18 01:15 01/17/18 01:17 Lactated Ringer's 1000 Ml Bag IV 01/17/18 02:15 999 mls/hr .Q1H1M [facility] Administration Lactated Ringer's 1,000 mls @ 999 mls/hr 01/17/18 02:00 01/17/18 01:52 Lactated Ringer's 1000 Ml Bag IV 01/17/18 03:00 999 mls/hr .Q1H1M [facility] Administration Discontinued Medications Generic Name Dose Route Start Last Admin Trade Name Freq PRN Reason Stop Dose Admin Sodium Chloride 1,000 mls @ 999 mls/hr 01/16/18 21:30 01/16/18 21:21 Sod Chlor 0.9% 1000ml Bag IV 01/16/18 22:30 999 mls/hr .Q1H1M [facility] Administration Sodium Chloride 1,000 mls @ 999 mls/
--- NOTE | 2018-01-16 23:25 | XR_ITS ---
XR chest 2V HISTORY: Cough ITS.REASON: Cough ORDERING PHYSICIAN: Robby Katz MD PATIENT AGE: 37 years COMPARISON: 12/13/2017 FINDINGS: The cardiomediastinal silhouette and pulmonary vascularity are within normal limits. The lungs are clear without infiltrates, suspicious nodules, or pleural effusions. No acute bony abnormalities. IMPRESSION: Negative chest, no acute finding
[2018-01-16 23:46] LABS: POC Glucose,Bedside 385 mg/dL (70-110)
[2018-01-16 23:54] LABS: Appearance,Urine CLEAR (Clear); Bilirubin,Urine Negative (Negative); Blood, Urine 1+ (Negative); Color,Urine YELLOW (Yellow); Glucose,Urine (UA) 3+ (Negative); Ketones,Urine 1+ (Negative); Leukocyte Esterase,Urine Negative (Negative); Microscopic, Urine URINE MICROSCOPIC (MICROSCOPIC); Nitrate,Urine Negative (Negative); PH,Urine 5.5 (5.0-8.5); Protein,Urine 2+ (Negative); Specific Gravity, Urine 1.015 (1.005-1.030); Urobilinogen,Urine 0.2 EU/dl (0.2)
[2018-01-17 00:16] LABS: Bacteria,Urine 1+ /lpf; WBC,Urine Occasional #/hpf (0-3)
[2018-01-17 01:00] LABS: Anion Gap 16.1 mEq/L (5-15); Blood Urea Nitrogen 32 mg/dL (7-18); Carbon Dioxide 22 mmol/L (21.0-32.0); Chloride 105 mmol/L (98-107); Creatinine Clearance Estimated 53 mL/min (0-300); Creatinine,Serum 2.13 mg/dL (0.70-1.30); Estimated Glomerular Filt Rate 36 ml/min (>60); GFR (African American) 43 ML/MIN (>60); Glucose 368 mg/dL (74-106); Potassium 4.1 mmoL/L (3.5-5.1); Sodium 139 mmol/L (136-145)
[2018-01-17 01:48] VITALS: BP 155/93; PULSE 86; RESP 18; TEMP 36.4; O2SAT 96
[2018-01-17 02:31] VITALS: BP 181/93; PULSE 78; RESP 14; TEMP 36.5
[2018-01-18 09:17] LABS: Hep A Ab, IgM Negative (Negative); Hepatitis B Core Antibody IgM Negative (Negative); Hepatitis B Surface Antigen Negative (Negative)
[2018-01-19 15:14] LABS: Hepatitis C Antibody <0.1 s/co ratio (0.0-0.9)
== END 2018-01-17 02:32 | disposition home or self-care (01) ==
PROVIDERS: Emergency Provider Emergency Medicine; Family Provider Emergency Medicine; PCP Nurse Practitioner Family
DX: E10.65 Type 1 diabetes mellitus with hyperglycemia (principal); Z79.4 Long term (current) use of insulin; N28.9 Disorder of kidney and ureter, unspecified
CPT/HCPCS: 36415; 71046; 74176; 80048; 80053; 80074; 81001; 82009; 82150; 82962; 83690; 85025; 87275; 87276; 87430; 96360; 96361; 96365; 96366; 96374; 96375; 99283

== ENCOUNTER 2018-07-30 13:16 | Inpatient (IN) ==
[2018-07-30 13:49] LABS: Basophils # 0.1 K/mm3 (0-0.2); Eosinophils # 0.1 K/mm3 (0.0-0.4); Eosinophils % 1.3 % (0.1-12.0); Hematocrit 37.1 % (42.0-52.0); Hemoglobin 11.3 g/dL (14.1-18.0); Lymphocytes # 3.6 K/mm3 (0.7-4.5); Lymphocytes % 37.1 K/mm3 (10-50); Mean Corpuscular HGB Conc 30.5 g/dL (31.8-35.4); Mean Corpuscular Hemoglobin 31.9 pg (27.0-31.2); Mean Corpuscular Volume 104.5 fl (80-94); Mean Platelet Volume 8.8 fl (7.4-10.4); Monocytes # 0.5 K/mm3 (0.1-1.0); Monocytes % 5.1 % (1.7-9.3); Neutrophils # 5.4 K/mm3 (1.8-7.8); Neutrophils % 55.5 % (37.0-80.0); Platelet Count 388 K/mm3 (142-424); Red Blood Count 3.55 M/mm3 (4.60-6.20); Red Cell Distribution Width 15.5 % (11.5-17.5); White Blood Count 9.8 K/mm3 (4.8-10.8)
[2018-07-30 13:50] LABS: VBG Base Excess -5.6 mmol/L (-2.4-2.3); VBG HCO3 20.4 mmol/L (23-30); VBG Oxygen Saturation 66.6 % (50-70); VBG PH 7.33 mmol/L (7.31-7.41); VBG PO2 36.4 mmol/L (28-40); VBG Total CO2 21.7 mmol/L (23-27)
[2018-07-30 14:11] LABS: Albumin Level 2.6 gm/dL (3.4-5.0); Albumin/Globulin Ratio 0.7 (1.1-1.8); Bilirubin,Total 1.3 mg/dL (0.2-1.0); Calcium 9.1 mg/dL (8.5-10.1); Total Protein,Serum 6.6 gm/dL (6.4-8.2)
--- NOTE | 2018-07-30 16:54 | Emergency Department Note ---
ED Disposition Clinical Impression: Hypoglycemia associated with diabetes, Abnormal liver function tests, Renal insufficiency Disposition: Admitted As Inpatient Condition on Discharge: Good - Critical Care Critical Care Time: Yes (Monitoring of hyperglycemia dehydration) Attestation: On 07/30/18, the high probability of a clinically significant, sudden or life threatening deterioration of the following system(s) required my full and direct attention, intervention and personal management. The time I documented below is in addition to time spent performing reported procedures but includes the following listed in this critical care notation. Total Critical Care Time: 120 Vital system(s) involved:: Metabolic Failure My critical care processes included: Assessment & monitoring of V/S, Initial and Re-exams, Coordinating Care, Medication Orders and management Medical Decision Making - Medical Records Medical records reviewed: Yes: I reviewed the patient's medical records. - Michael Inquiry Pt receiving controlled substance: No Michael was queried for this patient: No Vital Signs: 07/30/18 13:25 07/30/18 16:37 Temperature 98.3 F Temperature Source Oral Pulse Rate [Left Radial] 102 H 92 H Respiratory Rate 20 Blood Pressure [Right Arm] 177/112 187/95 Blood Pressure Mean [Right Arm] 133 125 Blood Pressure Source [Right Arm] Automatic Cuff Automatic Cuff Blood Pressure Position [Right Arm] Sitting Sitting 02 Sat by Pulse Oximetry 100 100 Oxygen Delivery Method Room Air - Lab Data Lab Results 07/30/18 13:21: POC Glucose 499 H* 07/30/18 13:24: VBG pH 7.33, VBG pCO2 40.0, VBG pO2 36.4, VBG HCO3 20.4 L, VBG Total CO2 21.7 L, VBG O2 Saturation 66.6, VBG Base Excess -5.6 L 07/30/18 13:30: WBC 9.8, RBC 3.55 L, Hgb 11.3 L, Hct 37.1 L, MCV 104.5 H, MCH 31.9 H, MCHC 30.5 L, RDW 15.5, Plt Count 388, MPV 8.8, Neut % (Auto) 55.5, Lymph % (Auto) 37.1, [place] % (Auto) 5.1, Eos % (Auto) 1.3, Baso % (Auto) 1.0, Neut # (Auto) 5.4, Lymph # (Auto) 3.6, [place] # (Auto) 0.5, Eos # (Auto) 0.1, Baso # ( Auto) 0.1 07/30/18 13:30: Sodium 131 L, Potassium 5.0, Chloride 96 L, Carbon Dioxide 25, Anion Gap 15.0, BUN 32 H, Creatinine 1.98 H, Estimated Creat Clear 58, Estimated GFR 39 L, Est GFR ( Amer) 47 L, Glucose 492 H*, Calcium 9.1, Total Bilirubin 1.3 H, AST 640 H*, ALT 417 H*, Alkaline Phosphatase 2686 H, Total Protein 6.6, Albumin 2.6 L, Globulin 4.0 H, Albumin/Globulin Ratio 0.7 L 07/30/18 13:30: Lactate 0.5 07/30/18 13:30: Acetone Level None detected 07/30/18 13:35: Random Glucose 520 H* 07/30/18 16:02: POC Glucose 541 H* 07/30/18 16:32: POC Glucose 416 H* 07/30/18 17:16: POC Glucose 341 H* 07/30/18 18:54: POC Glucose 247 H Result diagrams: 07/30/18 13:30 07/30/18 13:30 Orders (Tests/Meds): ED MEDICATIONS Generic Name Dose Route Start Last Admin Trade Name Freq PRN Reason Stop Dose Admin Insulin Human Regular 100 unit 101 mls @ 8.08 mls/hr 07/30/18 15:30 07/30/18 19:13 / Sodium Chloride IV 08/29/18 15:29 8.08 mls/hr .[id number] [facility] Administration Protocol 8 UNIT/HR Insulin Glargine 32 unit 07/31/18 09:00 Lantus Insulin 100units/Ml 10ml Vial SQ 08/30/18 08:59 DAILY [facility] Non-Formulary Medication 100 unit 07/31/18 09:00 Insulin Aspart [Novolog] SQ 08/30/18 08:59 DAILY [facility] Non-Formulary Medication 800 mg 07/30/18 21:00 Gabapentin [Gabapentin 800mg Tab] PO 08/29/18 20:59 QID [facility] Discontinued Medications Generic Name Dose Route Start Last Admin Trade Name Freq PRN Reason Stop Dose Admin Furosemide 10 mg 07/30/18 16:41 07/30/18 16:49 Lasix 20mg/2ml Vial IV 07/30/18 16:42 10 mg ONCE ONE Administration Furosemide 10 mg 07/30/18 17:04 07/30/18 17:07 Lasix 20mg/2ml Vial IV 07/30/18 17:05 10 mg ONCE ONE Administration Lactated Ringer's 1,000 mls @ 999 mls/hr 07/30/18 13:30 07/30/18 14:59 Lactated Ringer's 1000 Ml Bag IV 07/30/18 14:30 999 mls/hr .Q1H1M [facility] Administration Lactated Ringer's 1,000 mls @ 999 mls/hr 07/30/18 13:45 07/30/18 14:59 Lactated Ringer's 1000 Ml Bag IV 07/30/18 14:45 999 mls/hr .Q1H1M [facility] Administration Lactated Ringer's 1,000 mls @ 999 mls/hr 07/30/18 15:00 07/30/18 14:59 Lactated Ringer's 1000 Ml Bag IV 07/30/18 16:00 999 mls/hr .Q1H1M [facility] Administration Lactated Ringer's 1,000 mls @ 999 mls/hr 07/30/18 16:15 07/30/18 16:06 Lactated Ringer's 1000 Ml Bag IV 07/30/18 17:15 999 mls/hr .Q1H1M [facility] Administration Sodium Chloride 1,000 mls @ 999 mls/hr 07/30/18 16:15 07/30/18 16:05 Sod Chlor 0.9% 1000ml Bag IV 07/30/18 17:15 999 mls/hr .Q1H1M [facility] Administration Sodium Chloride 1,000 mls @ 999 mls/hr 07/30/18 16:15 07/30/18 16:15 Sod Chlor 0.9% 1000ml Bag IV 07/30/18 17:15 999 mls/hr .Q1H1M [facility] Administration Levofloxacin/Dextrose 750 mg in 150 mls @ 100 mls/hr 07/30/18 17:15 07/30/18 17:11 Levofloxacin 750mg/150ml Premix IV 07/30/18 18:44 100 mls/hr ONCE ONE Administration Protocol Insulin Human Regular 12 unit 07/30/18 15:31 07/30/18 15:34 Humulin R Insulin 100 Units/Ml 10ml Vial IVP 07/30/18 15:32 12 unit ONCE ONE Administration Potassium Chloride 80 meq 07/30/18 15:21 07/30/18 15:29 Potassium Chloride 20meq/15ml Solution Udc PO 07/30/18 15:22 Not Given ONCE ONE Potassium Chloride 60 meq 07/30/18 15:27 07/30/18 15:29 Potassium Chloride 20meq/15ml Solution Udc PO 07/30/18 15:28 60 meq ONCE ONE Administration ORDERS Category Date Time Status Troponin I Stat Lab 07/30/18 19:00 Received UA [Urinalysis and Microscopic] Stat Lab 07/30/18 13:32 Ordered Blood Culture Stat Micro 07/30/18 13:30 Received Venous Blood Gas Stat RT 07/30/18 13:24 Ordered 12-lead EKG Request [ECG Request by Dr/Nse] Stat Y 07/30/18 13:26 Ordered Medical Decision Narrative: Patient treated aggressively with fluids some insulin p.o. potassium no significant acidosis noticed on venous blood gas patient significantly improved his glucose went down to under 300 he ate a meal had some diuresis he was discussed with Dr. Baltazar covering for Dr. Katz he will be admitted to the [facility] General Adult HPI - General Chief complaint: Hyper/Hypoglycemia Stated complaint: possible DKA, sent by [facility] Time Seen by Provider: 07/30/18 13:30 Mode of Arrival: Ambulatory Limitations: No Limitations Description of Symptoms (Recalled from ER Triage Doc. by RN): PT states he has been unable to get his sugar under 600 this week, states it doesnt matter if he eats or doesnt eat. 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 Severity: moderate - Related Data Home Medications Medication Instructions Recorded Confirmed Gabapentin [Gabapentin 800mg Tab] 800 mg PO QID 12/19/17 07/30/18 Insulin Aspart [Novolog] 100 unit SQ DAILY 12/19/17 07/30/18 Insulin Glargine,Hum.rec.anlog 32 unit SQ DAILY 12/19/17 07/30/18 [Lantus Insulin 100units/mL 10mL vial] insulin aspart U- 100 100 unit/mL 1 dose SQ DAILY 30 Days #30 ml 07/30/18 07/30/18 subcutaneous pen insulin glargine (U-100) 100 1 dose SQ DAILY 50 Days #15 ml 07/30/18 07/30/18 unit/mL (3 mL) subcutaneous pen pen needle, diabetic 31 gauge x See Dose Instructions .ROUTE 07/30/18 07/30/18 3/16" .MEDSUPPLY 34 Days #100 each Allergies Allergy/AdvReac Type Severity Reaction Status Date / Time Penicillins [PENICILLINS] Allergy Severe I-HIVES Verified 07/30/18 11:40 [facility] History I have reviewed the patient's past medical history: Yes Medical History: Reports:: Diabetes Mellitus Type 1, Hypertension, Renal Insufficiency Denies:: Cancer, Diabetes Mellitus Type 2, MRSA Other Medical History: Reports: Other Comment: high heart rate Laterality Cases: Bilateral: Tonsillectomy Other Surgeries: Yes: No Previous Surgery Amputation: No Fractures: No - Social History Smoking Status: Never smoker Tobacco Type: smokeless tobacco # Packs/Day (cigarettes): 1 Alcohol Intake: current Alcohol Intake Frequency:: holidays/special occasions only Substance Use Type: denies use Occupational Status: employed Housing: house Household Members: family - Psychiatric History Expresses thoughts of harming self/others: None Suicide Plan Description: No Plan Family Hx:: Diabetes, Hyperlipidemia, Hypertension ROS Obtained: Yes All systems reviewed & no additional complaints - Constitutional Constitutional: Reports daytime sleepiness, Reports fatigue, Reports poor appetite, Reports malaise Physical Exam - General General appearance: alert Comment: Patient is somnolent but responsive - Head Head exam: atraumatic, normocephalic, normal inspection - Eye Eye exam: Present: normal appearance, PERRL, EOMI - ENT ENT exam: Present: normal exam, normal oropharynx, mucous membranes moist, TM's normal bilaterally, normal external ear exam - Neck Neck exam: Present: normal inspection, full ROM, trachea midline. Absent: meningismus, lymphadenopathy - Chest Chest inspection: Present: normal inspection, symmetric chest wall rise. Absent: tenderness - Respiratory Respiratory exam: Present: normal lung sounds bilaterally. Absent: respiratory distress - Cardiovascular Cardiovascular exam: Present: regular rate, normal rhythm. Absent: JVD - Abdominal Exam Abdominal exam: Present: soft, normal bowel sounds. Absent: distention, tenderness, guarding - Extremities Exam Extremities exam: Present: normal inspection, full ROM, normal capillary refill. Absent: calf tenderness - Back Exam Back exam: Present: normal inspection. Absent: tenderness - Neurological Exam Neurological exam: Present: alert, oriented X3 - Psychiatric Psychiatric exam: Present: normal affect, normal mood - Skin Skin exam: Present: warm, dry, intact, normal color - Lymphatic Lymphatic Findings: no adenopathy
[2018-07-31 06:03] LABS: Basophils # 0.1 K/mm3 (0-0.2); Eosinophils # 0.3 K/mm3 (0.0-0.4); Eosinophils % 3.1 % (0.1-12.0); Hematocrit 38.7 % (42.0-52.0); Lymphocytes # 3.9 K/mm3 (0.7-4.5); Lymphocytes % 39.9 K/mm3 (10-50); Mean Corpuscular HGB Conc 31.1 g/dL (31.8-35.4); Mean Corpuscular Hemoglobin 31.9 pg (27.0-31.2); Mean Corpuscular Volume 102.5 fl (80-94); Monocytes # 0.3 K/mm3 (0.1-1.0); Monocytes % 3.4 % (1.7-9.3); Neutrophils # 5.1 K/mm3 (1.8-7.8); Neutrophils % 52.6 % (37.0-80.0); Platelet Count 412 K/mm3 (142-424); Red Blood Count 3.78 M/mm3 (4.60-6.20); Red Cell Distribution Width 15.7 % (11.5-17.5); White Blood Count 9.7 K/mm3 (4.8-10.8)
[2018-07-31 06:23] LABS: Albumin Level 2.6 gm/dL (3.4-5.0); Albumin/Globulin Ratio 0.6 (1.1-1.8); Anion Gap 14.6 mEq/L (5-15); Bilirubin,Total 0.9 mg/dL (0.2-1.0); Globulin 4.3 gm/dl (1.3-3.2); Potassium 3.6 mmoL/L (3.5-5.1); Total Protein,Serum 6.9 gm/dL (6.4-8.2)
--- NOTE | 2018-07-31 08:06 | Pharmacy Consult Notes ---
[facility] Pharmacy VTE Monitoring - Patient Demographics Admission date: 07/30/18 Report Date: 07/31/18 Time: 08:06 Allergies/Adverse Reactions: Patient Allergies Penicillins [PENICILLINS] Allergy (Severe, Verified 07/30/18 20:24) I-HIVES Height: 1.7 m Weight: 80.513 kg Patient Problems: Current Active Problems Renal insufficiency (Acute) Abnormal liver function tests (Acute) Hypoglycemia associated with diabetes (Acute) - VTE Risk Labs: VTE Related Lab Results Hgb 12.0 g/dL (14.1-18.0) L 07/31/18 05:41 Hct 38.7 % (42.0-52.0) L 07/31/18 05:41 Plt Count 412 K/mm3 (142-424) 07/31/18 05:41 BUN 23 mg/dL (7-18) H D 07/31/18 05:41 Creatinine 1.61 mg/dL (0.70-1.30) H 07/31/18 05:41 Estimated Creat Clear 73 mL/min (0-300) 07/31/18 05:41 Was VTE Risk Assessment Performed: No - Prophylaxis VTE Prophylaxis Ordered?: Yes Types of VTE Prophylaxis: TEDS Knee High Location of Applied Device: Bilateral Lower Extremeties - VTE Diagnosis Confirmed Treatment or plan recommended: Continue Current Treatment
--- NOTE | 2018-07-31 09:46 | History & Physical Report ---
*Admission Date: 07/30/18 *Chief complaint: abd pain *History of present illness: this pt with known iddm with nausea and high glu was seen in the ed and noted to have no dka but elevated glu and abn liver enz- he had elevated lft and pancreatitis last spring but unk etiology- no etoh or known gb or hepatitis - pt was seen in the ed and admitted for ivf and eval [facility] History I have reviewed the patient's past medical history: Yes Medical History: Reports:: Diabetes Mellitus Type 1, Hypertension, Renal Insufficiency Denies:: Cancer, Diabetes Mellitus Type 2, MRSA Other Medical History: Reports: Other Laterality Cases: Bilateral: Tonsillectomy Other Surgeries: Yes: No Previous Surgery, Other (tonsillectomy) Amputation: No Fractures: No - *Social History Educational Level: Attended High School Smoking Status: Never smoker Tobacco Type: smokeless tobacco # Packs/Day (cigarettes): 1 Alcohol Intake: never Alcohol Intake Frequency:: holidays/special occasions only Substance Use Type: denies use Occupational Status: employed Housing: apartment Household Members: spouse, family, children - Psychiatric History Expresses thoughts of harming self/others: None Suicide Plan Description: No Plan *Family Hx:: Cancer, Diabetes, Hyperlipidemia, Hypertension, Stroke Review of Systems - Review of Systems Review of systems:: pertinent systems reviewed and negative unless documented below - Constitutional Denies fever(s) - Eyes Denies change in vision - ENT Denies sore throat - *Cardiovascular Denies chest pain at rest - *Respiratory Denies cough - *Gastrointestinal Reports abdominal pain, Reports nausea, Reports vomiting, Denies black, tarry stools - *Genitourinary Denies blood in urine - *Musculoskeletal Denies joint pain - Integumentary/Breasts Denies rash - *Neurologic Denies seizure-like activity Meds Home Medications Medication Instructions Recorded Confirmed Type Gabapentin [Gabapentin 800mg Tab] 800 mg PO QID 12/19/17 07/30/18 History Insulin Aspart [Novolog] 0 unit SQ DAILY 12/19/17 07/31/18 History Insulin Glargine,Hum.rec.anlog 32 unit SQ HS 12/19/17 07/30/18 History [Lantus Insulin 100units/mL 10mL vial] Allergies Allergy/AdvReac Type Severity Reaction Status Date / Time Penicillins [PENICILLINS] Allergy Severe I-HIVES Verified 07/30/18 20:24 Exam Vital signs and Labs for Last 24 Hours: Temp Pulse Resp BP Pulse Ox 97.4 F L 80 18 185/108 100 07/31/18 08:00 07/31/18 08:00 07/31/18 08:00 07/31/18 08:00 07/31/18 08:00 Laboratory Results - last 24 hr 07/30/18 13:21: POC Glucose 499 H* 07/30/18 13:24: VBG pH 7.33, VBG pCO2 40.0, VBG pO2 36.4, VBG HCO3 20.4 L, VBG Total CO2 21.7 L, VBG O2 Saturation 66.6, VBG Base Excess -5.6 L 07/30/18 13:30: WBC 9.8, RBC 3.55 L, Hgb 11.3 L, Hct 37.1 L, MCV 104.5 H, MCH 31.9 H, MCHC 30.5 L, RDW 15.5, Plt Count 388, MPV 8.8, Neut % (Auto) 55.5, Lymph % (Auto) 37.1, [place] % (Auto) 5.1, Eos % (Auto) 1.3, Baso % (Auto) 1.0, Neut # (Auto) 5.4, Lymph # (Auto) 3.6, [place] # (Auto) 0.5, Eos # (Auto) 0.1, Baso # (Auto) 0.1 07/30/18 13:30: Sodium 131 L, Potassium 5.0, Chloride 96 L, Carbon Dioxide 25, Anion Gap 15.0, BUN 32 H, Creatinine 1.98 H, Estimated Creat Clear 58, Estimated GFR 39 L, Est GFR ( Amer) 47 L, Glucose 492 H*, Calcium 9.1, Total Bilirubin 1.3 H, AST 640 H*, ALT 417 H*, Alkaline Phosphatase 2686 H, Total Protein 6.6, Albumin 2.6 L, Globulin 4.0 H, Albumin/Globulin Ratio 0.7 L 07/30/18 13:30: Lactate 0.5 07/30/18 13:30: Acetone Level None detected 07/30/18 13:35: Random Glucose 520 H* 07/30/18 15:20: POC Glucose 552 H* 07/30/18 16:02: POC Glucose 541 H* 07/30/18 16:32: POC Glucose 416 H* 07/30/18 17:16: POC Glucose 341 H* 07/30/18 17:51: POC Glucose 315 H* 07/30/18 18:54: POC Glucose 247 H 07/30/18 19:00: Troponin I < 0.02 07/30/18 20:11: POC Glucose 162 H 07/30/18 21:51: POC Glucose 102 07/31/18 00:43: POC Glucose 191 H 07/31/18 03:50: POC Glucose 132 H 07/31/18 05:41: WBC 9.7, RBC 3.78 L, Hgb 12.0 L, Hct 38.7 L, MCV 102.5 H, MCH 31.9 H, MCHC 31.1 L, RDW 15.7, Plt Count 412, MPV 10.0, Neut % (Auto) 52.6, Lymph % (Auto) 39.9, [place] % (Auto) 3.4, Eos % (Auto) 3.1, Baso % (Auto) 1.0, Neut # (Auto) 5.1, Lymph # (Auto) 3.9, [place] # (Auto) 0.3, Eos # (Auto) 0.3, Baso # (Auto) 0.1 07/31/18 05:41: Sodium 133 L, Potassium 3.6 D, Chloride 96 L, Carbon Dioxide 26, Anion Gap 14.6, BUN 23 H D, Creatinine 1.61 H, Estimated Creat Clear 73, Estimated GFR 49 L, Est GFR ( Amer) 59 D, Glucose 108 H D, Calcium 9.0, Magnesium 1.4, Total Bilirubin 0.9, AST 608 H*, ALT 437 H*, Alkaline Phosphatase 2740 H, Total Protein 6.9, Albumin 2.6 L, Globulin 4.3 H, Albumin/Globulin Ratio 0.6 L 07/31/18 05:41: Lipase 3893 H 07/31/18 05:47: POC Glucose 116 H I & O for Last 24 hours: Intake & Output 07/28/18 07/29/18 07/30/18 07/31/18 11:59 11:59 11:59 11:59 Intake Total 2042 2042 Output Total 4560 / 4560 Balance -2517 / -2517 Weight 177 lb 8 oz - Constitutional no acute distress - *Routine HEENT Exam Head: Present: normocephalic Eye: Present: EOMI, PERRL ENT: Present: mucous membranes dry - *Routine Neck Exam Present: supple - *Routine Respiratory Exam Present: CTA bilaterally - *Routine Cardiovascular Exam Present: RRR, murmur - *Routine Abdominal Exam Present: soft, tenderness - *Routine Extremities Exam Present: edema, calf tenderness - *Routine Skin Exam Present: intact - *Routine Neurological Exam Present: alert, oriented X3, CN II-XII intact - Routine Psychiatric Exam Present: normal affect Assessment and Plan (1) Pancreatitis Current visit: Yes Status: Acute Category: Medical Code(s): K85.90 - Acute pancreatitis without necrosis or infection, unspecified (2) Diabetes mellitus, insulin dependent (IDDM), uncontrolled Current visit: Yes Status: Acute Category: Medical Code(s): E10.65 - Type 1 diabetes mellitus with hyperglycemia (3) Elevated LFTs Current visit: Yes Status: Acute Category: Medical Code(s): R94.5 - Abnormal results of liver function studies (4) Renal insufficiency Current visit: Yes Status: Acute Category: Medical Code(s): N28.9 - Disorder of kidney and ureter, unspecified
[2018-07-31 10:51] LABS: INR 0.92 (0.9-1.1); Prothrombin Time 9.5 seconds (9.4-11.8)
[2018-08-01 05:58] LABS: Basophils # 0.1 K/mm3 (0-0.2); Eosinophils # 0.3 K/mm3 (0.0-0.4); Eosinophils % 3.1 % (0.1-12.0); Hematocrit 39.4 % (42.0-52.0); Hemoglobin 12.3 g/dL (14.1-18.0); Lymphocytes # 3.4 K/mm3 (0.7-4.5); Lymphocytes % 38.3 K/mm3 (10-50); Mean Corpuscular HGB Conc 31.2 g/dL (31.8-35.4); Mean Corpuscular Hemoglobin 32.1 pg (27.0-31.2); Mean Corpuscular Volume 102.9 fl (80-94); Mean Platelet Volume 8.7 fl (7.4-10.4); Monocytes # 0.3 K/mm3 (0.1-1.0); Monocytes % 3.3 % (1.7-9.3); Neutrophils # 4.9 K/mm3 (1.8-7.8); Neutrophils % 54.3 % (37.0-80.0); Platelet Count 417 K/mm3 (142-424); Red Blood Count 3.83 M/mm3 (4.60-6.20); Red Cell Distribution Width 15.9 % (11.5-17.5); White Blood Count 8.9 K/mm3 (4.8-10.8)
[2018-08-01 06:11] LABS: Chol/HDL Ratio 22.5 (1-3.5)
[2018-08-01 06:18] LABS: Albumin Level 2.6 gm/dL (3.4-5.0); Albumin/Globulin Ratio 0.6 (1.1-1.8); Anion Gap 11.2 mEq/L (5-15); Bilirubin,Total 0.8 mg/dL (0.2-1.0); Calcium 9.2 mg/dL (8.5-10.1); Globulin 4.4 gm/dl (1.3-3.2); Potassium 4.2 mmoL/L (3.5-5.1)
[2018-08-01 08:26] LABS: Hepatitis B Core Antibody IgM Negative (Negative); Hepatitis B Surface Antigen Negative (Negative)
--- NOTE | 2018-08-01 09:33 | Progress Note ---
Internal Medicine - PN: Subj *Date: 08/01/18 *Time: 09:29 Exam Vital signs and Labs for Last 24 Hours: Temp Pulse Resp BP Pulse Ox 98.0 F 84 16 165/95 98 08/01/18 08:00 08/01/18 08:00 08/01/18 08:00 08/01/18 08:00 08/01/18 08:38 Laboratory Results - last 24 hr 07/31/18 10:35: Ammonia 29 07/31/18 10:35: PT 9.5, INR 0.92 07/31/18 11:42: POC Glucose 234 H 07/31/18 16:38: POC Glucose 166 H 07/31/18 19:30: POC Glucose 208 H 08/01/18 05:07: POC Glucose 121 H 08/01/18 05:34: Triglycerides 222 H, Cholesterol 562 H, LDL Cholesterol 493 H, VLDL Cholesterol 44 H, HDL Cholesterol 25 L, Cholesterol/HDL Ratio 22.5 H 08/01/18 05:34: WBC 8.9, RBC 3.83 L, Hgb 12.3 L, Hct 39.4 L, MCV 102.9 H, MCH 32.1 H, MCHC 31.2 L, RDW 15.9, Plt Count 417, MPV 8.7, Neut % (Auto) 54.3, Lymph % (Auto) 38.3, [place] % (Auto) 3.3, Eos % (Auto) 3.1, Baso % (Auto) 1.0, Neut # (Auto) 4.9, Lymph # (Auto) 3.4, [place] # (Auto) 0.3, Eos # (Auto) 0.3, Baso # (Auto) 0.1 08/01/18 05:34: Sodium 136, Potassium 4.2, Chloride 100, Carbon Dioxide 29, Anion Gap 11.2, BUN 20 H, Creatinine 1.55 H, Estimated Creat Clear 73, Estimated GFR 51 L, Est GFR ( Amer) 62, Glucose 128 H, Calcium 9.2, Total Bilirubin 0.8, AST 489 H*, ALT 400 H*, Alkaline Phosphatase 2429 H, Total Protein 7.0, Albumin 2.6 L, Globulin 4.4 H, Albumin/Globulin Ratio 0.6 L, Lipase 2178 H I & O for Last 24 hours: Intake & Output 07/29/18 07/30/18 07/31/18 08/01/18 11:59 11:59 11:59 11:59 Intake Total 2043 / 2043 3407 / 3407 Output Total 4560 / 4560 3000 / 3000 Balance -2517 / -2517 407 / 407 Weight 177 lb 8 oz 172 lb 2 oz - *Routine HEENT Exam Head: Present: normocephalic Eye: Present: EOMI, PERRL ENT: Present: mucous membranes moist - *Routine Neck Exam Present: supple. Absent: lymphadenopathy - *Routine Respiratory Exam Present: CTA bilaterally - *Routine Cardiovascular Exam Present: RRR - *Routine Abdominal Exam Present: soft, normoactive bowel sounds, distended. Absent: tenderness - *Routine Extremities Exam Present: edema. Absent: cyanosis, clubbing - *Routine Skin Exam Present: warm. Absent: rash - *Routine Neurological Exam Present: alert, oriented X3 Assessment and Plan (1) Pancreatitis Current visit: Yes Status: Acute Category: Medical Code(s): K85.90 - Acute pancreatitis without necrosis or infection, unspecified (2) Diabetes mellitus, insulin dependent (IDDM), uncontrolled Current visit: Yes Status: Acute Category: Medical Code(s): E10.65 - Type 1 diabetes mellitus with hyperglycemia (3) Elevated LFTs Current visit: Yes Status: Acute Category: Medical Code(s): R94.5 - Abnormal results of liver function studies (4) Renal insufficiency Current visit: Yes Status: Acute Category: Medical Code(s): N28.9 - Disorder of kidney and ureter, unspecified (5) Pancreatitis, acute Current visit: Yes Status: Acute Qualifiers: Pancreatitis type: other Category: Medical Code(s): K85.90 - Acute pancreatitis without necrosis or infection, unspecified caused by elevated cholestrol - Assessment and plan all Dx Assessment and Plan for all problems:: Sterling rounded earlier all orders per [place] Patient is complaining of chest pain that comes and goes for a few months now. Elevated cholesterol We will have cardiology consult due to chest pain and elevated cholesterol.
--- NOTE | 2018-08-01 12:16 | Consult Report ---
Addendum entered and electronically signed by BRYON Soares 08/01/18 15:40: Review of records from Hospital from 05/2018: Hepatitis panel Negative Hgb A1C 12.3 Cr 2.9 down to 2.1 (reportedly baseline is around 2) Hgb 9.5 up to 11.8 Abd u/s normal liver and pancreas parenchyma, GB sludge, mild right sided hydronephrosis and hydroureter Chlamydia and gonorrhea on urine specimen Iron level 58 Transferrin saturation 26 Total iron-binding capacity 224 Transferrin 179 Alpha-1 antitrypsin 108 and in the normal range Ceruloplasmin 31 and in the normal range Tissue transglutaminase AB, IgG 2 and in the normal range Plasma IgA 173 in the normal range Syphilis nonreactive Antinuclear antibody screen negative Reportedly has chronic elevated LFT's in the 200 range. Original Note: History of Present Illness Consult date: 08/01/18 Requesting physician: Robby Katz Consult reason: chest pain Chief complaint: Abdominal and chest pain Additional Medical History:: 1. Type 1 diabetes mellitus since age 7 A. 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 Renal complications C. Diabetic neuropathy 2. Hypertension 3. Hyperlipidemia A. LDL 493, HDL 25, triglycerides 222, total cholesterol 562 on 08/01/2018 4. Pancreatitis, 07/2018 5. Hepatitis, 07/2018 A. Gallbladder sludge versus stones on ultrasound B. Abdominal and pelvic CT, 07/2018, IMPRESSION: 1. Persistent distended urinary bladder with uniform thickening of the urinary bladder with bilateral hydronephrosis and hydroureter. 2. Hyperdensity of the liver nonspecific and may be seen with hemachromatosis, hemosiderosis, thalassemia, Jamison disease, amiodarone therapy. 3. Small area of calcification in the infra aspect of the fundus of the gallbladder may be due to small stones or layering milk of calcium 6. Family history of coronary artery disease in his father in his mid 40's 7. CKD, stage 2, Cr 1.55 with GFR 51, 07/2018 History of present illness: 37-year-old white male with history of type 1 diabetes mellitus, recent pancreatitis and urinary incontinence presented to the emergency department for abdominal and chest pain. Evaluation has revealed both pancreatitis and hepatitis with possible gallstones. During workup, patient relayed episodes of chest pain and cardiology has been consulted for evaluation. Patient describes the chest pain as substernal and left-sided, sharp and lasts from 5 minutes up to 30 minutes. Symptoms seem to correlate to episodes of anxiety and frustration with patient stating "I have kind of a short fuse" with no significant correlation of chest pain to activity. He denies significant shortness of breath, nausea, vomiting or diaphoresis associated with the chest pain. Patient relates a remote history of stress testing but he never followed up for test results. He does not smoke cigarettes but does dip tobacco. He does drink occasionally prior to this hospitalization. He does relate increasing lower extremity edema for about 2 weeks. Patient relates being air cared to earlier this year for DKA with associated pancreatitis. He relates having a bladder catheter placed during his hospitalization with resultant nocturnal urinary incontinence since then. EKG shows sinus rhythm with no acute ST segment changes. [facility] History Medical History: Reports:: Diabetes Mellitus Type 1, Hypertension, Renal Insufficiency Denies:: Cancer, Diabetes Mellitus Type 2, MRSA Other Medical History: Reports: Other Laterality Cases: Bilateral: Tonsillectomy Other Surgeries: Yes: No Previous Surgery, Other (tonsillectomy) Amputation: No Fractures: No - *Social History Educational Level: Attended High School Smoking Status: Never smoker Tobacco Type: smokeless tobacco # Packs/Day (cigarettes): 1 Alcohol Intake: never Alcohol Intake Frequency:: holidays/special occasions only Substance Use Type: denies use Occupational Status: employed Housing: apartment Household Members: spouse, family, children - Psychiatric History Expresses thoughts of harming self/others: None Suicide Plan Description: No Plan *Family Hx:: Cancer, Diabetes, Hyperlipidemia, Hypertension, Stroke Meds Home Medications Medication Instructions Recorded Confirmed Type Gabapentin [Gabapentin 800mg Tab] 800 mg PO QID 12/19/17 07/30/18 History Insulin Aspart [Novolog] 0 unit SQ DAILY 12/19/17 07/31/18 History Insulin Glargine,Hum.rec.anlog 32 unit SQ HS 12/19/17 07/30/18 History [Lantus Insulin 100units/mL 10mL vial] Allergies Allergy/AdvReac Type Severity Reaction Status Date / Time Penicillins [PENICILLINS] Allergy Severe I-HIVES Verified 07/30/18 20:24 Review of Systems - *Cardiovascular Reports chest pain, Reports shortness of breath with activity, Reports leg swelling - *Respiratory Reports shortness of breath with activity, Denies chest congestion - *Gastrointestinal Reports abdominal pain, Reports heartburn, Denies loose stools - *Genitourinary Denies blood in urine - *Musculoskeletal Denies joint pain - *Neurologic Reports tingling/numbness/burning sensations, Denies seizure-like activity Exam Vital signs and Labs for Last 24 Hours: Temp Pulse Resp BP Pulse Ox 98.4 F 110 H 18 171/102 98 08/01/18 11:54 08/01/18 11:54 08/01/18 11:54 08/01/18 12:02 08/01/18 11:54 Laboratory Results - last 24 hr 07/31/18 16:38: POC Glucose 166 H 07/31/18 19:30: POC Glucose 208 H 08/01/18 05:07: POC Glucose 121 H 08/01/18 05:34: Triglycerides 222 H, Cholesterol 562 H, LDL Cholesterol 493 H, VLDL Cholesterol 44 H, HDL Cholesterol 25 L, Cholesterol/HDL Ratio 22.5 H 08/01/18 05:34: WBC 8.9, RBC 3.83 L, Hgb 12.3 L, Hct 39.4 L, MCV 102.9 H, MCH 32.1 H, MCHC 31.2 L, RDW 15.9, Plt Count 417, MPV 8.7, Neut % (Auto) 54.3, Lymph % (Auto) 38.3, [place] % (Auto) 3.3, Eos % (Auto) 3.1, Baso % (Auto) 1.0, Neut # (Auto) 4.9, Lymph # (Auto) 3.4, [place] # (Auto) 0.3, Eos # (Auto) 0.3, Baso # (Auto) 0.1 08/01/18 05:34: Sodium 136, Potassium 4.2, Chloride 100, Carbon Dioxide 29, Anion Gap 11.2, BUN 20 H, Creatinine 1.55 H, Estimated Creat Clear 73, Estimated GFR 51 L, Est GFR ( Amer) 62, Glucose 128 H, Calcium 9.2, Total Bilirubin 0.8, AST 489 H*, ALT 400 H*, Alkaline Phosphatase 2429 H, Total Protein 7.0, Albumin 2.6 L, Globulin 4.4 H, Albumin/Globulin Ratio 0.6 L, Lipase 2178 H I & O for Last 24 hours: Intake & Output 07/30/18 07/31/18 08/01/18 08/02/18 11:59 11:59 11:59 11:59 Intake Total 2043 / 2043 3407 / 3407 Output Total 4560 / 4560 3600 / 3600 Balance -2517 / -2517 -193 / -193 Weight 177 lb 8 oz 172 lb 2 oz - *Routine Neck Exam Present: supple. Absent: JVD, carotid bruit - *Routine Respiratory Exam Present: CTA bilaterally. Absent: accessory muscle use, rales, rhonchi, wheezes - *Routine Cardiovascular Exam Present: RRR. Absent: murmur, gallop, rubs - *Routine Abdominal Exam Present: soft, tenderness. Absent: distended, guarding - *Routine Extremities Exam Present: edema. Absent: calf tenderness - *Routine Skin Exam Present: warm. Absent: cyanosis - *Routine Neurological Exam Present: alert, oriented X3, moving all extremities Assessment and Plan (1) Pancreatitis Current visit: Yes Status: Acute Category: Medical Code(s): K85.90 - Acute pancreatitis without necrosis or infection, unspecified (2) Diabetes mellitus, insulin dependent (IDDM), uncontrolled Current visit: Yes Status: Acute Category: Medical Code(s): E10.65 - Type 1 diabetes mellitus with hyperglycemia (3) Elevated LFTs Current visit: Yes Status: Acute Category: Medical Code(s): R94.5 - Abnormal results of liver function studies (4) Renal insufficiency Current visit: Yes Status: Acute Category: Medical Code(s): N28.9 - Disorder of kidney and ureter, unspecified (5) Pancreatitis, acute Current visit: Yes Status: Acute Qualifiers: Pancreatitis type: other Category: Medical Code(s): K85.90 - Acute pancreatitis without necrosis or infection, unspecified (6) Hypertension Current visit: Yes Status: Acute Category: Medical Code(s): I10 - Essential (primary) hypertension (7) Chest pain Current visit: Yes Status: Acute Category: Medical Code(s): R07.9 - Chest pain, unspecified (8) Lower extremity edema Current visit: Yes Status: Acute Category: Medical Code(s): R60.0 - Localized edema - Assessment and plan all Dx Assessment and Plan for all problems:: 1. Atypical chest pain with lower extremity edema in a type I diabetic. Would like to obtain an echocardiogram to evaluate his left ventricular size and function. Will recommend stress testing once patient's liver and pancreas issues have improved. 2. With hypertension and mild renal insufficiency in a diabetic, would like to start carvedilol and ROMAIN inhibitor therapy. 3. Elevated lipids in a diabetic patient. Due to elevated LFTs we will hold off on starting statin therapy at this time. 4. Due to mixed macrocytic and microcytic anemia will obtain B12 and folate levels. Due to appearance of liver on CAT scan, we will also obtain iron and TIBC. 5. Further recommendations to follow pending above results.
[2018-08-01 16:54] LABS: Hepatitis C Antibody <0.1 s/co ratio (0.0-0.9)
[2018-08-02 05:30] LABS: Basophils # 0.1 K/mm3 (0-0.2); Basophils % 0.7 % (0.1-2.0); Eosinophils # 0.3 K/mm3 (0.0-0.4); Eosinophils % 3.2 % (0.1-12.0); Hematocrit 33.1 % (42.0-52.0); Lymphocytes # 3.1 K/mm3 (0.7-4.5); Lymphocytes % 39.4 K/mm3 (10-50); Mean Corpuscular HGB Conc 30.1 g/dL (31.8-35.4); Mean Corpuscular Hemoglobin 31.5 pg (27.0-31.2); Mean Corpuscular Volume 104.7 fl (80-94); Mean Platelet Volume 9.2 fl (7.4-10.4); Monocytes # 0.3 K/mm3 (0.1-1.0); Monocytes % 4.3 % (1.7-9.3); Neutrophils # 4.1 K/mm3 (1.8-7.8); Neutrophils % 52.4 % (37.0-80.0); Platelet Count 348 K/mm3 (142-424); Red Blood Count 3.16 M/mm3 (4.60-6.20); Red Cell Distribution Width 15.8 % (11.5-17.5); White Blood Count 7.8 K/mm3 (4.8-10.8)
[2018-08-02 05:52] LABS: Albumin Level 2.1 gm/dL (3.4-5.0); Albumin/Globulin Ratio 0.6 (1.1-1.8); Bilirubin,Total 0.6 mg/dL (0.2-1.0); Calcium 8.5 mg/dL (8.5-10.1); Globulin 3.4 gm/dl (1.3-3.2); Total Protein,Serum 5.5 gm/dL (6.4-8.2)
--- NOTE | 2018-08-02 08:04 | Progress Note ---
Subjective Date: 08/02/18 Time: 07:59 Principal diagnosis: Elevated LFT's and pancreatitis, chest pain Interval history: 37-year-old white male in bed in no acute distress. States is feeling better. No chest pain noted. Preliminary echocardiogram shows preserved left ventricular ejection fraction without significant valvular heart disease. Exam Vital signs and Labs for Last 24 Hours: Temp Pulse Resp BP Pulse Ox 98.0 F 70 18 140/91 98 08/02/18 04:00 08/02/18 04:00 08/02/18 04:00 08/02/18 04:00 08/02/18 04:00 Laboratory Results - last 24 hr 07/31/18 10:35: Hepatitis A IgM Ab Negative, Hep Bs Antigen Negative, Hep B Core IgM Ab Negative, Hepatitis C Antibody <0.1 08/01/18 12:02: POC Glucose 336 H* 08/01/18 16:33: POC Glucose 395 H* 08/01/18 21:20: POC Glucose 234 H 08/02/18 04:23: WBC 7.8, RBC 3.16 L, Hgb 10.0 L D, Hct 33.1 L, MCV 104.7 H, MCH 31.5 H, MCHC 30.1 L, RDW 15.8, Plt Count 348, MPV 9.2, Neut % (Auto) 52.4, Lymph % (Auto) 39.4, [place] % (Auto) 4.3, Eos % (Auto) 3.2, Baso % (Auto) 0.7, Neut # (Auto) 4.1, Lymph # (Auto) 3.1, [place] # (Auto) 0.3, Eos # (Auto) 0.3, Baso # (Auto) 0.1 08/02/18 04:23: Sodium 136, Potassium 4.0, Chloride 103, Carbon Dioxide 28, Anion Gap 9.0, BUN 26 H D, Creatinine 1.64 H, Estimated Creat Clear 69, Estimated GFR 48 L, Est GFR ( Amer) 58 L, Calcium 8.5, Total Bilirubin 0.6, AST 305 H* D, ALT 295 H D, Alkaline Phosphatase 1764 H, Total Protein 5.5 L , Albumin 2.1 L D, Globulin 3.4 H, Albumin/Globulin Ratio 0.6 L, Lipase 1426 H 08/02/18 05:56: POC Glucose 131 H I & O for Last 24 hours: Intake & Output 07/30/18 07/31/18 08/01/18 08/02/18 11:59 11:59 11:59 11:59 Intake Total 2043 / 2043 3407 / 3407 3436 / 3436 Output Total 4560 / 4560 3600 / 3600 1300 / 1300 Balance -2517 / -2517 -193 / -193 2136 / 2136 Weight 177 lb 8 oz 172 lb 2 oz 172 lb 2.014 oz Microbiology Reports for the Last 24 Hours: Microbiology 07/30/18 13:30 Blood Blood Culture - Preliminary NO GROWTH AFTER 48 HOURS 07/30/18 13:30 Blood Blood Culture - Preliminary NO GROWTH AFTER 48 HOURS - *Routine Respiratory Exam Present: CTA bilaterally. Absent: accessory muscle use, rales, rhonchi, wheezes - *Routine Cardiovascular Exam Present: RRR. Absent: murmur, gallop, rubs - *Routine Extremities Exam Absent: calf tenderness Progress Note: A&P (1) Pancreatitis Status: Acute Current Visit: Yes (2) Diabetes mellitus, insulin dependent (IDDM), uncontrolled Status: Acute Current Visit: Yes (3) Elevated LFTs Status: Acute Current Visit: Yes (4) Renal insufficiency Status: Acute Current Visit: Yes (5) Pancreatitis, acute Status: Acute Current Visit: Yes (6) Hypertension Status: Acute Current Visit: Yes (7) Chest pain Status: Acute Current Visit: Yes (8) Lower extremity edema Status: Acute Current Visit: Yes Assessment and Plan for All Diagnoses:: 1. Normal ejection fraction with no wall motion abnormalities noted on echocardiogram with normal troponins. 2. Blood pressure improved on carvedilol and lisinopril therapy. 3. Improved LFTs and amylase with IV fluids. Slight hemodilution factor noted with drop in hemoglobin. 4. Patient continues with lower extremity edema with mild renal insufficiency. Consider single dose of IV Lasix. 5. No further inpatient workup recommended at this time. 6. Consider outpatient stress testing in 1-2 weeks.
[2018-08-02 08:36] LABS: Folate 9.7 ng/mL (>3.0)
--- NOTE | 2018-08-02 09:49 | Discharge Summary ---
General - General Admission date:: 07/30/18 Discharge date: 08/02/18 HPI HPI: this pt with known iddm with nausea and high glu was seen in the ed and noted to have no dka but elevated glu and abn liver enz- he had elevated lft and pancreatitis last spring but unk etiology- no etoh or known gb or hepatitis - pt was seen in the ed and admitted for ivf and eval Hospital Course Hospital Course: ct abd IMPRESSION: 1. Persistent distended urinary bladder with uniform thickening of the urinary bladder with bilateral hydronephrosis and hydroureter. 2. Hyperdensity of the liver nonspecific and may be seen with hemachromatosis, hemosiderosis, thalassemia, Jamison disease, amiodarone therapy. 3. Small area of calcification in the infra aspect of the fundus of the gallbladder may be due to small stones or layering milk of calcium gallbladder us: IMPRESSION: 1 small nonshadowing stones versus sludge. 2. Right hydronephrosis. 3. Otherwise negative right upper quadrant ultrasound Cardiology consult see note Consult urology for bladder distention Patient will be discharged home follow-up in 1 week in the office for repeat of labs and refer to Endo. Patient is to follow-up with cardiology in 1 week. Patient instructed to alcoholic beverages. At this time were still holding statin due to liver function. Objective Vital signs: Temp Pulse Resp BP Pulse Ox 97.3 F L 80 16 177/99 99 08/02/18 08:00 08/02/18 08:00 08/02/18 08:00 08/02/18 08:00 08/02/18 08:00 - *Routine HEENT Exam Head: Present: normocephalic Eye: Present: EOMI ENT: Present: mucous membranes moist - *Routine Neck Exam Present: supple - *Routine Respiratory Exam Present: CTA bilaterally - *Routine Cardiovascular Exam Present: RRR - *Routine Abdominal Exam Present: soft, normoactive bowel sounds. Absent: tenderness - *Routine Extremities Exam Present: full ROM - *Routine Skin Exam Present: intact - *Routine Neurological Exam Present: alert, oriented X3 - Routine Psychiatric Exam Present: normal affect Results Labs on day of discharge: Labs from last 24 hours 08/02/18 08/02/18 08/02/18 05:56 04:23 04:23 WBC 7.8 RBC 3.16 L Hgb 10.0 L D Hct 33.1 L MCV 104.7 H MCH 31.5 H MCHC 30.1 L RDW 15.8 Plt Count 348 MPV 9.2 Neut % (Auto) 52.4 Lymph % (Auto) 39.4 [place] % (Auto) 4.3 Eos % (Auto) 3.2 Baso % (Auto) 0.7 Neut # (Auto) 4.1 Lymph # (Auto) 3.1 [place] # (Auto) 0.3 Eos # (Auto) 0.3 Baso # (Auto) 0.1 Sodium 136 Potassium 4.0 Chloride 103 Carbon Dioxide 28 Anion Gap 9.0 BUN 26 H D Creatinine 1.64 H Estimated Creat Clear 69 Estimated GFR 48 L Est GFR ( Amer) 58 L Glucose 85 D POC Glucose 131 H Calcium 8.5 Iron TIBC Iron Saturation Unsaturated IBC Total Bilirubin 0.6 AST 305 H* D ALT 295 H D Alkaline Phosphatase 1764 H Total Protein 5.5 L Albumin 2.1 L D Globulin 3.4 H Albumin/Globulin Ratio 0.6 L Lipase 1426 H Folate Hepatitis A IgM Ab Hep Bs Antigen Hep B Core IgM Ab Hepatitis C Antibody 08/01/18 08/01/18 08/01/18 21:20 16:33 12:02 WBC RBC Hgb Hct MCV MCH MCHC RDW Plt Count MPV Neut % (Auto) Lymph % (Auto) [place] % (Auto) Eos % (Auto) Baso % (Auto) Neut # (Auto) Lymph # (Auto) [place] # (Auto) Eos # (Auto) Baso # (Auto) Sodium Potassium Chloride Carbon Dioxide Anion Gap BUN Creatinine Estimated Creat Clear Estimated GFR Est GFR ( Amer) Glucose POC Glucose 234 H 395 H* 336 H* Calcium Iron TIBC Iron Saturation Unsaturated IBC Total Bilirubin AST ALT Alkaline Phosphatase Total Protein Albumin Globulin Albumin/Globulin Ratio Lipase Folate Hepatitis A IgM Ab Hep Bs Antigen Hep B Core IgM Ab Hepatitis C Antibody 08/01/18 07/31/18 05:34 10:35 WBC RBC Hgb Hct MCV MCH MCHC RDW Plt Count MPV Neut % (Auto) Lymph % (Auto) [place] % (Auto) Eos % (Auto) Baso % (Auto) Neut # (Auto) Lymph # (Auto) [place] # (Auto) Eos # (Auto) Baso # (Auto) Sodium Potassium Chloride Carbon Dioxide Anion Gap BUN Creatinine Estimated Creat Clear Estimated GFR Est GFR ( Amer) Glucose POC Glucose Calcium Iron 64 TIBC 241 L Iron Saturation 27 Unsaturated IBC 177 Total Bilirubin AST ALT Alkaline Phosphatase Total Protein Albumin Globulin Albumin/Globulin Ratio Lipase Folate 9.7 Hepatitis A IgM Ab Negative Hep Bs Antigen Negative Hep B Core IgM Ab Negative Hepatitis C Antibody <0.1 Preliminary micro results at discharge 07/30/18 13:30 Blood Culture - Preliminary Blood NO GROWTH AFTER 48 HOURS 07/30/18 13:30 Blood Culture - Preliminary Blood NO GROWTH AFTER 48 HOURS - Additional Comments rounded with arabella all orders ok with arabella DS: Diagnosis - Discharge Diagnosis (1) Pancreatitis Status: Acute (2) Diabetes mellitus, insulin dependent (IDDM), uncontrolled Status: Acute (3) Elevated LFTs Status: Acute (4) Renal insufficiency Status: Acute (5) Pancreatitis, acute Status: Acute (6) Hypertension Status: Acute (7) Chest pain Status: Acute (8) Lower extremity edema Status: Acute Discharge Plan - Patient Discharge Instructions ACTIVITY: Continue current activity DIET: continue same diet - Follow up Plan Follow up with: Robby Katz MD [Staff Physician] - 1 week Ba Baron MD [Staff Physician] - 1 week Disposition: Home, Self-Custodial Medications: Home Medications Medication Instructions Recorded Confirmed Type Gabapentin [Gabapentin 800mg Tab] 800 mg PO QID 12/19/17 07/30/18 History Insulin Aspart [Novolog] 0 unit SQ DAILY 12/19/17 07/31/18 History Insulin Glargine,Hum.rec.anlog 32 unit SQ HS 12/19/17 07/30/18 History [Lantus Insulin 100units/mL 10mL vial] Prescriptions/Medication Reconciliation: New Carvedilol [Coreg 3.125mg Tablet] 3.125 mg PO BID 30 Days #60 tab Lisinopril [Zestril 5mg Tablet] 5 mg PO DAILY 30 Days #30 tab Continue Insulin Glargine,Hum.rec.anlog [Lantus Insulin 100units/mL 10mL vial] 32 unit SQ HS Gabapentin [Gabapentin 800mg Tab] 800 mg PO QID Insulin Aspart [Novolog] 0 unit SQ DAILY
--- NOTE | 2018-08-02 13:07 | Cardiology Report ---
PROCEDURE: 2-D M-mode and color Doppler study INDICATIONS FOR THE TEST: Chest pain X COPD Heart Murmur Tobacco Smoking Palpitations Fatigue Syncope Edema HypertensionXDiabetes MellitusX Rheumatic Fever SOB [place] Obesity HyperlipidemiaX Family History HD Additional History PATIENT INFORMATION HEIGHT: 69 WEIGHT:172 GENDER: Male B/P:171/104 2-D/M-MODE INTERPRETATION: 2-D MEASUREMENTS OBSERVED VALUES IN CMS Right Ventricular Dimension (RVDd) 2.5 Interventricular Septum (Thickness)(IVsd) 1.2 Left Ventricular Internal Dimensions(LVIDd) 4.3 Left Ventricular Posterior Wall (Thickness)(LVPWd) 1.3 Aortic Root 3.6 Aortic Cusp Separation 1.9 Left Atrial Dimensions (LAD) 2.7 2D 1. Left atrium is qualitatively mildly enlarged, left ventricle is normal size, mild concentric left ventricular hypertrophy, visually estimated ejection fraction of 55% with no regional wall motion abnormality. 2. The right atrium and right ventricle are normal size and contractility. 3. The aortic valve, mitral and tricuspid valve are grossly normal. 4. The pulmonic valve is poorly visualized. 5. No significant pericardial effusion noted. DOPPLER INTERROGATION: Doppler interrogation of the aortic, mitral and tricuspid valvular presence of mild mitral and tricuspid regurgitation, tricuspid regurgitation jet velocity is inadequate for calculation of the right ventricular systolic pressure, grade 1 diastolic dysfunction seen without tissue Doppler evidence of raised left atrial pressure. CONCLUSION: 1. Mildly enlarged left atrium, normal left ventricular size, mild concentric left ventricular hypertrophy, visually estimated ejection fraction 55% with no regional wall motion abnormality, grade 1 diastolic dysfunction seen without tissue Doppler evidence of raised left atrial pressure. 2. Mild mitral and tricuspid regurgitation 3. No significant pericardial effusion noted.
--- NOTE | 2018-08-02 13:26 | Consult Report ---
*Admission Date: 07/30/18 *Chief complaint: Urinary retention *History of present illness: Patient is a 37-year-old white male referred for bladder distention and bilateral hydroureteronephrosis. Patient is a poorly controlled diabetic and states he has been hospitalized twice in the past few months for diabetic ketoacidosis. He was at in May and urology referral at that time was made. He said [facility] urologist recommended that he catheterizes bladder 2 times a day and he states he has not been completely compliant and doing that. His states that they have not been able to get the catheters and he has not done any catheterization for a month. His CT scans were reviewed from January and April in July 2018. The one in January did not show any hydro-or bladder wall thickening but in April he began to have bladder wall thickening and hydro-and it is slightly worse on his CT scan this admission. His creatinine on admission was 198 and had decreased to 1.64 yesterday. His glucose levels were 552 on admission and they have come down to 116. Patient states he is able to void a little bit during the day but at night he has a lot of incontinent episodes. [facility] History Medical History: Reports:: Diabetes Mellitus Type 1, Hypertension, Renal Insufficiency Denies:: Cancer, Diabetes Mellitus Type 2, MRSA Other Medical History: Reports: Other Laterality Cases: Bilateral: Tonsillectomy Other Surgeries: Yes: No Previous Surgery, Other (tonsillectomy) Amputation: No Fractures: No - *Social History Educational Level: Attended High School Smoking Status: Never smoker Tobacco Type: smokeless tobacco # Packs/Day (cigarettes): 1 Alcohol Intake: never Alcohol Intake Frequency:: holidays/special occasions only Substance Use Type: denies use Occupational Status: employed Housing: apartment Household Members: spouse, family, children - Psychiatric History Expresses thoughts of harming self/others: None Suicide Plan Description: No Plan *Family Hx:: Cancer, Diabetes, Hyperlipidemia, Hypertension, Stroke Review of Systems - *Neurologic Reports tingling/numbness/burning sensations, Denies seizure-like activity Meds Home Medications Medication Instructions Recorded Confirmed Type Gabapentin [Gabapentin 800mg Tab] 800 mg PO QID 12/19/17 07/30/18 History Insulin Aspart [Novolog] 0 unit SQ DAILY 12/19/17 07/31/18 History Insulin Glargine,Hum.rec.anlog 32 unit SQ HS 12/19/17 07/30/18 History [Lantus Insulin 100units/mL 10mL vial] Allergies Allergy/AdvReac Type Severity Reaction Status Date / Time Penicillins [PENICILLINS] Allergy Severe I-HIVES Verified 07/30/18 20:24 Exam Vital signs and Labs for Last 24 Hours: Temp Pulse Resp BP Pulse Ox 97.3 F L 80 16 160/90 99 08/02/18 08:00 08/02/18 08:00 08/02/18 08:00 08/02/18 10:11 08/02/18 08:00 Laboratory Results - last 24 hr 07/31/18 10:35: Hepatitis A IgM Ab Negative, Hep Bs Antigen Negative, Hep B Core IgM Ab Negative, Hepatitis C Antibody <0.1 08/01/18 05:34: Vitamin B12 851 08/01/18 05:34: Iron 64, TIBC 241 L, Iron Saturation 27, Unsaturated IBC 177, Folate 9.7 08/01/18 16:33: POC Glucose 395 H* 08/01/18 21:20: POC Glucose 234 H 08/02/18 04:23: WBC 7.8, RBC 3.16 L, Hgb 10.0 L D, Hct 33.1 L, MCV 104.7 H, MCH 31.5 H, MCHC 30.1 L, RDW 15.8, Plt Count 348, MPV 9.2, Neut % (Auto) 52.4, Lymph % (Auto) 39.4, [place] % (Auto) 4.3, Eos % (Auto) 3.2, Baso % (Auto) 0.7, Neut # (Auto) 4.1, Lymph # (Auto) 3.1, [place] # (Auto) 0.3, Eos # (Auto) 0.3, Baso # (Auto) 0.1 08/02/18 04:23: Sodium 136, Potassium 4.0, Chloride 103, Carbon Dioxide 28, Anion Gap 9.0, BUN 26 H D, Creatinine 1.64 H, Estimated Creat Clear 69, Estimated GFR 48 L, Est GFR ( Amer) 58 L, Glucose 85 D, Calcium 8.5, Total Bilirubin 0.6, AST 305 H* D, ALT 295 H D, Alkaline Phosphatase 1764 H, Total Protein 5.5 L, Albumin 2.1 L D, Globulin 3.4 H, Albumin/Globulin Ratio 0.6 L, Lipase 1426 H 08/02/18 05:56: POC Glucose 131 H 08/02/18 11:21: POC Glucose 219 H I & O for Last 24 hours: Intake & Output 07/30/18 07/31/18 08/01/18 08/02/18 23:59 23:59 23:59 23:59 Intake Total 3023 / 3023 3627 / 3627 3196 / 3196 Output Total 2580 / 2580 4280 / 4280 2150 / 2150 1150 / 1150 Balance -2580 / -2580 -1257 / -1257 1477 / 1477 2045 / 2045 Weight 81.692 kg 80.513 kg 78.075 kg Microbiology Reports for the Last 24 Hours: Microbiology 07/30/18 13:30 Blood Blood Culture - Preliminary NO GROWTH AFTER 48 HOURS 07/30/18 13:30 Blood Blood Culture - Preliminary NO GROWTH AFTER 48 HOURS Internal Medicine - CN: Reslt - Labs CBC & Chem 7: 08/02/18 04:23 08/02/18 04:23 Labs: Short CBC 08/02/18 Range/Units 04:23 WBC 7.8 (4.8-10.8) K/mm3 Hgb 10.0 L D (14.1-18.0) g/dL Hct 33.1 L (42.0-52.0) % Plt Count 348 (142-424) K/mm3 BMP 08/02/18 04:23 Sodium 136 Potassium 4.0 Chloride 103 Carbon Dioxide 28 BUN 26 H D Creatinine 1.64 H Glucose 85 D Calcium 8.5 Liver Function 08/02/18 Range/Units 04:23 Total Bilirubin 0.6 (0.2-1.0) mg/dL AST 305 H* D (15-37) U/L ALT 295 H D (12-78) U/L Alkaline Phosphatase 1764 H (46-116) U/L Albumin 2.1 L D (3.4-5.0) gm/dL - ABG Interpretation ABG results: 07/30/18 13:24 VBG pH 7.33 VBG pCO2 40.0 VBG pO2 36.4 VBG HCO3 20.4 L VBG Total CO2 21.7 L VBG O2 Saturation 66.6 VBG Base Excess -5.6 L Assessment and Plan (1) Pancreatitis Current visit: Yes Status: Acute Category: Medical Code(s): K85.90 - Acute pancreatitis without necrosis or infection, unspecified (2) Diabetes mellitus, insulin dependent (IDDM), uncontrolled Current visit: Yes Status: Acute Category: Medical Code(s): E10.65 - Type 1 diabetes mellitus with hyperglycemia (3) Elevated LFTs Current visit: Yes Status: Acute Category: Medical Code(s): R94.5 - Abnormal results of liver function studies (4) Renal insufficiency Current visit: Yes Status: Acute Category: Medical Code(s): N28.9 - Disorder of kidney and ureter, unspecified (5) Pancreatitis, acute Current visit: Yes Status: Acute Qualifiers: Pancreatitis type: other Category: Medical Code(s): K85.90 - Acute pancreatitis without necrosis or infection, unspecified (6) Hypertension Current visit: Yes Status: Acute Category: Medical Code(s): I10 - Essential (primary) hypertension (7) Chest pain Current visit: Yes Status: Acute Category: Medical Code(s): R07.9 - Chest pain, unspecified (8) Lower extremity edema Current visit: Yes Status: Acute Category: Medical Code(s): R60.0 - Localized edema - Assessment and plan all Dx Assessment and Plan for all problems:: 37-year-old white male with hypotonic bladder likely due to his uncontrolled diabetes. We discussed that a high pressure bladder will not allow urine to pass from his kidneys into his bladder and that could result in kidney failure and dialysis. We discussed the importance of catheterizing 2-3 times a day to make sure that his bladder is empty and low pressure. A prescription was given for 14 [place] 1 touch catheters to be used 3 times a day. He is to return to see me in 1 month in follow-up.
== END 2018-08-02 13:22 | disposition home or self-care (01) ==
LOC: ER 13:16 → 2ND 13:16
PROVIDERS: ADMIT Emergency Medicine; ATTEND Emergency Medicine

== ENCOUNTER 2018-08-10 04:37 | Inpatient (IN) ==
[2018-08-10 05:12] LABS: Basophils % 0.3 % (0.1-2.0); Eosinophils # 0.1 K/mm3 (0.0-0.4); Eosinophils % 0.6 % (0.1-12.0); Hematocrit 35.4 % (42.0-52.0); Hemoglobin 10.9 g/dL (14.1-18.0); Lymphocytes # 2.1 K/mm3 (0.7-4.5); Lymphocytes % 17.7 K/mm3 (10-50); Mean Corpuscular HGB Conc 30.8 g/dL (31.8-35.4); Mean Corpuscular Hemoglobin 31.7 pg (27.0-31.2); Mean Corpuscular Volume 102.8 fl (80-94); Mean Platelet Volume 9.4 fl (7.4-10.4); Monocytes # 0.5 K/mm3 (0.1-1.0); Monocytes % 4.4 % (1.7-9.3); Neutrophils # 9.2 K/mm3 (1.8-7.8); Neutrophils % 77.1 % (37.0-80.0); Platelet Count 473 K/mm3 (142-424); Red Blood Count 3.45 M/mm3 (4.60-6.20); Red Cell Distribution Width 15.1 % (11.5-17.5); White Blood Count 11.9 K/mm3 (4.8-10.8)
--- NOTE | 2018-08-10 05:16 | Emergency Department Note ---
ED Disposition Clinical Impression: Elevated LFTs DKA (diabetic ketoacidoses) Qualifiers: Diabetes mellitus type: type 1 Diabetes mellitus complication detail: without coma Qualified Code(s): E10.10 - Type 1 diabetes mellitus with ketoacidosis without coma Acute renal failure (ARF) Qualifiers: Acute renal failure type: unspecified Qualified Code(s): N17.9 - Acute kidney failure, unspecified Disposition: Admitted As Inpatient Condition on Discharge: Serious Instructions: DI for Hyperglycemia -- Adult Referrals: Hola Tucker APRN [Primary Care Provider] - - Critical Care Critical Care Time: Yes Attestation: On 08/10/18, the high probability of a clinically significant, sudden or life threatening deterioration of the following system(s) required my full and direct attention, intervention and personal management. The time I documented below is in addition to time spent performing reported procedures but includes the following listed in this critical care notation. Total Critical Care Time: 60 Vital system(s) involved:: Metabolic Failure My critical care processes included: Assessment & monitoring of V/S, Initial and Re-exams, Coordinating Care, Medication Orders and management, Documentation Medical Decision Making - Medical Records Medical records reviewed: Yes: I reviewed the patient's medical records. - Michael Inquiry Pt receiving controlled substance: No Vital Signs: 08/10/18 04:38 08/10/18 04:57 Temperature 98.4 F Temperature Source Oral Pulse Rate [Right Radial] 85 110 H Respiratory Rate 16 18 Blood Pressure [Right Arm] 135/97 H 154/90 H Blood Pressure Mean [Right Arm] 109 111 Blood Pressure Source [Right Arm] Automatic Cuff Automatic Cuff Blood Pressure Position [Right Arm] Sitting Supine 02 Sat by Pulse Oximetry 100 100 Oxygen Delivery Method Room Air Room Air - Lab Data Lab results reviewed: Yes: I reviewed the patient's lab results. Lab Results 08/10/18 04:40: WBC 11.9 H, RBC 3.45 L, Hgb 10.9 L, Hct 35.4 L, MCV 102.8 H, MCH 31.7 H, MCHC 30.8 L, RDW 15.1, Plt Count 473 H, MPV 9.4, Neut % (Auto) 77.1, Lymph % (Auto) 17.7, [place] % (Auto) 4.4, Eos % (Auto) 0.6, Baso % (Auto) 0.3, Neut # (Auto) 9.2 H, Lymph # (Auto) 2.1, [place] # (Auto) 0.5, Eos # (Auto) 0.1, Baso # (Auto) 0.0 08/10/18 04:40: Sodium 137, Potassium 4.2, Chloride 96 L, Carbon Dioxide 18 L, Anion Gap 27.2 H, BUN 53 H, Creatinine 3.25 H, Estimated Creat Clear 30, Estimated GFR 22 L, Est GFR ( Amer) 26 L, Glucose 656 H*, Calcium 10.1, Total Bilirubin 1.0, AST 153 H, ALT 232 H, Alkaline Phosphatase 1455 H, Troponin I < 0.02, Total Protein 6.9 D, Albumin 2.8 L, Globulin 4.1 H, Albumin/Globulin Ratio 0.7 L, Acetone Level Small Result diagrams: 08/10/18 04:40 08/10/18 04:40 Orders (Tests/Meds): ED MEDICATIONS Generic Name Dose Route Start Last Admin Trade Name Freq PRN Reason Stop Dose Admin Sodium Chloride 1,000 mls @ 999 mls/hr 08/10/18 05:00 08/10/18 05:04 Sod Chlor 0.9% 1000ml Bag IV 08/10/18 06:00 999 mls/hr .Q1H1M CASTILLO Administration Discontinued Medications Generic Name Dose Route Start Last Admin Trade Name Freq PRN Reason Stop Dose Admin Ondansetron HCl 4 mg 08/10/18 04:47 08/10/18 04:54 Zofran 4mg/2ml Vial IV 08/10/18 04:48 4 mg ONCE ONE Administration ORDERS Category Date Time Status UA [Urinalysis and Microscopic] Stat Lab 08/10/18 04:51 Ordered UDS [Drug Screen,Urine] Stat Lab 08/10/18 05:30 Received ECG Request by /Darryl Stat Y 08/10/18 04:47 Ordered - Radiology Data #1 Image(s): Chest Image Reviewed: Yes I reviewed the patient's radiology image Preliminary Findings: Normal/NAD - ECG Data Tracing #1 Normal Sinus Rhythm: Yes Arrhythmias present: sinus tach Ischemic changes: non-specific ST-T wave changes Chest Pain HPI - General Chief Complaint: Hyper/Hypoglycemia Stated Complaint: Hyperglycemia Time Seen by Provider: 08/10/18 04:45 Mode of Arrival: EMS Source of Information: Patient, EMS, Medical Record Limitations: No Limitations Description of Symptoms (Recalled from ER Triage Doc. by RN): Pt reports he was having chest pain early but he isn't currently having any pain. He reports he is most concerned about his high blood sugar and nausea. - History of Present Illness HPI narrative: pt with brief epigastric chest pain this am - now resolved - he has sen card and reported to have gxt today - he is iddm -pt with reported compliance to diet and insulin -no fever but has recent admit for pancreatis and dka MD complaint: chest pain Onset (ago): minute(s) Duration: now resolved Activity at onset: light activity Pain location: epigastric Severity: similar to previous episodes Risk Factors for CAD: Diabetes, Smoking Treatments prior to or on arrival for Cardiac Chest Pain: none - MARILU Score Non-Stemi Age of patient: Less than 65 yrs Number of risk factors for CAD: Presence of 3 or more Prior coronary artery stenosis(seen in coronary angiography): Less than 50% ST-Segment deviation on ECG (more than 1 min): Absent Prior aspirin intake: No ASA in the last 7 days Severe anginal chest pain: No or one episode in last 24 hours Elevated cardiac markers(CK-MB or troponin): Absent Non-Stemi Risk Score: 1 - Related Data Home Medications Medication Instructions Recorded Confirmed Gabapentin [Gabapentin 800mg Tab] 800 mg PO QID 12/19/17 08/10/18 Insulin Aspart [Novolog] 0 unit SQ DAILY 12/19/17 08/10/18 insulin glargine (U- 100) 100 35 unit SQ HS ml 08/07/18 08/10/18 unit/mL subcutaneous solution Carvedilol [Coreg 3.125mg Tablet] 3.125 mg PO BID 08/10/18 08/10/18 Lisinopril [Zestril 5mg 5 mg PO DAILY 08/10/18 08/10/18 Tablet] Allergies Allergy/AdvReac Type Severity Reaction Status Date / Time Penicillins [PENICILLINS] Allergy Severe I-HIVES Verified 08/07/18 12:15 [facility] History I have reviewed the patient's past medical history: Yes Medical History: Reports:: Diabetes Mellitus Type 1, Hypertension, Renal Insufficiency Denies:: Cancer, Diabetes Mellitus Type 2, MRSA Other Medical History: Reports: Other Comment: high heart rate Laterality Cases: Bilateral: Tonsillectomy Other Surgeries: Yes: No Previous Surgery, Other (tonsillectomy) Amputation: No Fractures: No - Social History Smoking Status: Never smoker Tobacco Type: smokeless tobacco # Packs/Day (cigarettes): 1 Alcohol Intake: never Alcohol Intake Frequency:: holidays/special occasions only Substance Use Type: denies use Occupational Status: employed Housing: apartment Household Members: spouse, family, children - Psychiatric History Expresses thoughts of harming self/others: None Suicide Plan Description: No Plan Family Hx:: Cancer, Diabetes, Hyperlipidemia, Hypertension, Stroke ROS Obtained: Yes All systems reviewed & no additional complaints - Constitutional Constitutional: Denies fever(s) - Eyes Eyes: Denies change in vision - ENT Ears, Nose, Mouth, and Throat: Denies sore throat - Cardiovascular Cardiovascular: Reports chest pain, Denies radiating jaw, neck or arm pain - Respiratory Respiratory: No cough - Gastrointestinal Gastrointestingal: Reports: nausea. Denies: abdominal pain, vomiting - Genitourinary Male Genitourinary: Denies hematuria - Musculoskeletal Musculoskeletal: Denies joint pain - Integumentary/Breasts Skin/Breast: Denies rash - Neurologic Neurologic: Denies seizure-like activity Physical Exam - General General appearance: alert, in no apparent distress - Head Head exam: normocephalic - Eye Eye exam: Present: PERRL, EOMI. Absent: scleral icterus - ENT ENT exam: Present: mucous membranes dry - Neck Neck exam: Present: trachea midline - Respiratory Respiratory exam: Present: normal lung sounds bilaterally. Absent: respiratory distress - Cardiovascular Cardiovascular exam: Present: tachycardia, systolic murmur - Abdominal Exam Abdominal exam: Present: soft - Extremities Exam Extremities exam: Present: full ROM - Neurological Exam Neurological exam: Present: alert, CN II-XII intact - Psychiatric Psychiatric exam: Present: anxious - Skin Skin exam: Present: rash
[2018-08-10 05:22] LABS: Acetone, Serum (Rapid) Small (None Detect)
[2018-08-10 05:32] LABS: Alanine Aminotransferase 232 U/L (12-78); Albumin Level 2.8 gm/dL (3.4-5.0); Albumin/Globulin Ratio 0.7 (1.1-1.8); Anion Gap 27.2 mEq/L (5-15); Aspartate Amino Transferase 153 U/L (15-37); Blood Urea Nitrogen 53 mg/dL (7-18); Calcium 10.1 mg/dL (8.5-10.1); Carbon Dioxide 18 mmol/L (21.0-32.0); Chloride 96 mmol/L (98-107); Globulin 4.1 gm/dl (1.3-3.2); Potassium 4.2 mmoL/L (3.5-5.1); Sodium 137 mmol/L (136-145); Total Protein,Serum 6.9 gm/dL (6.4-8.2)
[2018-08-10 05:39] LABS: Alkaline Phosphatase 1455 U/L (46-116); Glucose 656 mg/dL (74-106)
[2018-08-10 06:00] LABS: Appearance,Urine CLEAR (Clear); Bilirubin,Urine Negative (Negative); Blood, Urine TRACE-L (Negative); Color,Urine YELLOW (Yellow); Glucose,Urine (UA) 3+ (Negative); Ketones,Urine 2+ (Negative); Leukocyte Esterase,Urine Negative (Negative); Microscopic, Urine URINE MICROSCOPIC (MICROSCOPIC); PH,Urine 5.5 (5.0-8.5); Protein,Urine 1+ (Negative); Urobilinogen,Urine 0.2 EU/dl (0.2)
[2018-08-10 06:09] LABS: Amphetamine/Metha Screen,Urine Negative ng/mL (<1000); Barbiturates Screen,Urine Negative ng/mL (<200); Benzodiazepines Screen,Urine Negative ng/mL (<200); Cannabinoid Screen,Urine Negative ng/mL (<50); Cocaine Screen,Urine Negative ng/mL (<300); Methadone Screen,Urine Negative ng/mL (<300); Opiate Screen,Urine Negative ng/mL (<300); Phencyclidine Screen,Urine Negative ng/mL (<25)
[2018-08-10 06:17] LABS: RBC,Urine Occasional #/hpf (0-3)
[2018-08-10 06:18] LABS: Bacteria,Urine Trace /lpf; Squamous Epithelial Cell,Urine Occasional #/hpf (0-5)
--- NOTE | 2018-08-10 07:13 | History & Physical Report ---
*Admission Date: 08/10/18 *Chief complaint: elevated glu *History of present illness: this wm who has iddm and recurrent pancreatitis presented with vomiting and not feeling well - he reports he has been compliant with meds and diet - he was found to have dka and elevated lft and renal function - he was given insulin and fluids and admitted for treatment - pt has had pancreatitis in past sec to [facility] [place] History I have reviewed the patient's past medical history: Yes Medical History: Reports:: Diabetes Mellitus Type 1, Hypertension, Renal Insufficiency Denies:: Cancer, Diabetes Mellitus Type 2, MRSA Other Medical History: Reports: Other Laterality Cases: Bilateral: Tonsillectomy Other Surgeries: Yes: No Previous Surgery, Other (tonsillectomy) Amputation: No Fractures: No - *Social History Smoking Status: Never smoker Tobacco Type: smokeless tobacco # Packs/Day (cigarettes): 1 Alcohol Intake: never Alcohol Intake Frequency:: holidays/special occasions only Substance Use Type: denies use Occupational Status: employed Housing: apartment Household Members: spouse, family, children - Psychiatric History Expresses thoughts of harming self/others: None Suicide Plan Description: No Plan *Family Hx:: Cancer, Diabetes, Hyperlipidemia, Hypertension, Stroke Review of Systems - Review of Systems Review of systems:: pertinent systems reviewed and negative unless documented below - Constitutional Denies fever(s) - Eyes Denies change in vision - ENT Denies sore throat - *Cardiovascular Denies chest pain at rest - *Respiratory Denies cough - *Gastrointestinal Reports abdominal pain, Reports nausea, Reports vomiting, Denies black, tarry stools - *Genitourinary Reports urinary urgency, Denies blood in urine - *Musculoskeletal Denies joint pain - Integumentary/Breasts Denies rash - *Neurologic Denies seizure-like activity - Psychiatric Reports anxiety Meds Home Medications Medication Instructions Recorded Confirmed Type Gabapentin [Gabapentin 800mg Tab] 800 mg PO QID 12/19/17 08/10/18 History Insulin Aspart [Novolog] 0 unit SQ DAILY 12/19/17 08/10/18 History insulin glargine (U- 100) 100 35 unit SQ HS ml 08/07/18 08/10/18 History unit/mL subcutaneous solution Carvedilol [Coreg 3.125mg Tablet] 3.125 mg PO BID 08/10/18 08/10/18 History Lisinopril [Zestril 5mg 5 mg PO DAILY 08/10/18 08/10/18 History Tablet] Allergies Allergy/AdvReac Type Severity Reaction Status Date / Time Penicillins [PENICILLINS] Allergy Severe I-HIVES Verified 08/10/18 09:12 Exam Vital signs and Labs for Last 24 Hours: Temp Pulse Resp BP Pulse Ox 98.6 F 113 H 20 120/70 100 08/10/18 06:11 08/10/18 06:11 08/10/18 06:11 08/10/18 06:11 08/10/18 05:49 Laboratory Results - last 24 hr 08/10/18 04:40: WBC 11.9 H, RBC 3.45 L, Hgb 10.9 L, Hct 35.4 L, MCV 102.8 H, MCH 31.7 H, MCHC 30.8 L, RDW 15.1, Plt Count 473 H, MPV 9.4, Neut % (Auto) 77.1, Lymph % (Auto) 17.7, [place] % (Auto) 4.4, Eos % (Auto) 0.6, Baso % (Auto) 0.3, Neut # (Auto) 9.2 H, Lymph # (Auto) 2.1, [place] # (Auto) 0.5, Eos # (Auto) 0.1, Baso # (Auto) 0.0 08/10/18 04:40: Sodium 137, Potassium 4.2, Chloride 96 L, Carbon Dioxide 18 L, Anion Gap 27.2 H, BUN 53 H, Creatinine 3.25 H, Estimated Creat Clear 30, Estimated GFR 22 L, Est GFR ( Amer) 26 L, Glucose 656 H*, Calcium 10.1, Total Bilirubin 1.0, AST 153 H, ALT 232 H, Alkaline Phosphatase 1455 H, Troponin I < 0.02, Total Protein 6.9 D, Albumin 2.8 L, Globulin 4.1 H, Albumin/Globulin Ratio 0.7 L, Acetone Level Small 08/10/18 05:30: Urine Color Yellow, Urine Appearance Clear, Urine pH 5.5, Ur Specific [place] 1.010, Urine Protein 1+, Urine Glucose (UA) 3+, Urine Ketones 2+, Urine Blood Trace-l, Urine Nitrate Negative, Urine Bilirubin Negative, Urine Urobilinogen 0.2, Ur Leukocyte Esterase Negative, Urine RBC Occasional, Urine WBC None, Ur Squamous Epith Cells Occasional, Urine Bacteria Trace 08/10/18 05:30: Urine Opiates Screen Negative, Urine Methadone Screen Negative, Ur Barbituates Screen Negative, Ur Phencyclidine Scrn Negative, Ur Amphetamines Screen Negative, U Benzodiazepines Scrn Negative, Urine Cocaine Screen Negative, U Marijuana (THC) Screen Negative I & O for Last 24 hours: Intake & Output 08/07/18 08/08/18 08/09/18 08/10/18 11:59 11:59 11:59 11:59 Intake Total Balance Weight 146 lb - Constitutional no acute distress - *Routine HEENT Exam Head: Present: normocephalic Eye: Present: EOMI, PERRL. Absent: conjunctival icterus ENT: Present: mucous membranes dry - *Routine Neck Exam Present: supple - *Routine Respiratory Exam Present: decreased breath sounds - *Routine Cardiovascular Exam Present: RRR, murmur - *Routine Abdominal Exam Present: soft, tenderness - *Routine Extremities Exam Absent: edema - Routine Back/Spine/Pelvis Exam Back/Spine: Absent: CVA tenderness - *Routine Skin Exam Present: intact - *Routine Neurological Exam Present: alert, oriented X3, CN II-XII intact - Routine Psychiatric Exam Present: normal affect Assessment and Plan (1) Diabetes mellitus, insulin dependent (IDDM), uncontrolled Current visit: Yes Status: Acute Category: Medical Code(s): E10.65 - Type 1 diabetes mellitus with hyperglycemia (2) Diabetic ketoacidosis Current visit: Yes Status: Acute Qualifiers: Diabetes mellitus type: type 1 Diabetes mellitus complication detail: without coma Qualified Code(s): E10.10 - Type 1 diabetes mellitus with ketoacidosis without coma Category: Medical Code(s): E13.10 - Other specified diabetes mellitus with ketoacidosis without coma (3) Renal insufficiency Current visit: No Status: Acute Category: Medical Code(s): N28.9 - Disorder of kidney and ureter, unspecified (4) Pancreatitis Current visit: Yes Status: Acute Category: Medical Code(s): K85.90 - Acute pancreatitis without necrosis or infection, unspecified (5) Anemia Current visit: Yes Status: Acute Qualifiers: Anemia type: due to chronic kidney disease Category: Medical Code(s): D64.9 - Anemia, unspecified
--- NOTE | 2018-08-10 07:55 | Pharmacy Consult Notes ---
[facility] Pharmacy VTE Monitoring - Patient Demographics Admission date: 08/10/18 Report Date: 08/10/18 Time: 07:55 Allergies/Adverse Reactions: Patient Allergies Penicillins [PENICILLINS] Allergy (Severe, Verified 08/07/18 12:15) I-HIVES Height: 1.7 m Weight: 67.784 kg Patient Problems: Current Active Problems Diabetic ketoacidosis (Acute) Elevated LFTs (Acute) Acute renal failure (ARF) (Acute) - VTE Risk Labs: VTE Related Lab Results Hgb 10.9 g/dL (14.1-18.0) L 08/10/18 04:40 Hct 35.4 % (42.0-52.0) L 08/10/18 04:40 Plt Count 473 K/mm3 (142-424) H 08/10/18 04:40 BUN 53 mg/dL (7-18) H 08/10/18 04:40 Creatinine 3.25 mg/dL (0.70-1.30) H 08/10/18 04:40 Estimated Creat Clear 30 mL/min (0-300) 08/10/18 04:40 - Prophylaxis VTE Prophylaxis Ordered?: Yes Types of VTE Prophylaxis: TEDS Knee High Location of Applied Device: Bilateral Lower Extremeties - VTE Diagnosis Confirmed Treatment or plan recommended: Continue Current Treatment
[2018-08-10 14:52] LABS: Anion Gap 17.8 mEq/L (5-15); Calcium 9.3 mg/dL (8.5-10.1); Potassium 3.8 mmoL/L (3.5-5.1)
[2018-08-10 18:29] LABS: Anion Gap 13.1 mEq/L (5-15); Calcium 9.1 mg/dL (8.5-10.1); Potassium 3.1 mmoL/L (3.5-5.1)
[2018-08-10 22:12] LABS: Calcium 8.6 mg/dL (8.5-10.1)
[2018-08-11 01:18] LABS: Albumin Level 2.2 gm/dL (3.4-5.0); Anion Gap 14.7 mEq/L (5-15); Bilirubin,Direct 0.3 mg/dL (0.0-0.2); Bilirubin,Indirect 0.2 mg/dL (0.0-0.9); Bilirubin,Total 0.5 mg/dL (0.2-1.0); Calcium 8.3 mg/dL (8.5-10.1); Potassium 3.7 mmoL/L (3.5-5.1); Total Protein,Serum 5.3 gm/dL (6.4-8.2)
[2018-08-11 05:09] LABS: Basophils % 0.2 % (0.1-2.0); Eosinophils # 0.2 K/mm3 (0.0-0.4); Eosinophils % 1.4 % (0.1-12.0); Hematocrit 29.4 % (42.0-52.0); Lymphocytes # 2.3 K/mm3 (0.7-4.5); Lymphocytes % 17.2 K/mm3 (10-50); Mean Corpuscular Hemoglobin 34.6 pg (27.0-31.2); Mean Corpuscular Volume 101.7 fl (80-94); Mean Platelet Volume 8.1 fl (7.4-10.4); Monocytes # 0.4 K/mm3 (0.1-1.0); Monocytes % 3.3 % (1.7-9.3); Neutrophils # 10.2 K/mm3 (1.8-7.8); Neutrophils % 77.8 % (37.0-80.0); Platelet Count 313 K/mm3 (142-424); Red Blood Count 2.89 M/mm3 (4.60-6.20); White Blood Count 13.1 K/mm3 (4.8-10.8)
[2018-08-11 05:17] LABS: Anion Gap 16.9 mEq/L (5-15); Calcium 8.5 mg/dL (8.5-10.1); Potassium 3.9 mmoL/L (3.5-5.1)
--- NOTE | 2018-08-11 09:42 | Progress Note ---
Internal Medicine - PN: Subj *Date: 08/11/18 *Time: 09:40 Interval history: pt doing better this am with no vomiting and neg acetone Exam Vital signs and Labs for Last 24 Hours: Temp Pulse Resp BP Pulse Ox 98.3 F 71 16 174/106 H 100 08/11/18 07:20 08/11/18 06:00 08/11/18 06:00 08/11/18 06:00 08/11/18 06:00 Laboratory Results - last 24 hr 08/10/18 10:30: Random Glucose 684 H* D 08/10/18 11:59: POC Glucose 491 H* 08/10/18 12:20: Troponin I < 0.02 08/10/18 12:20: Acetone Level Small 08/10/18 14:01: POC Glucose 362 H* 08/10/18 14:30: Sodium 145, Potassium 3.8, Chloride 107, Carbon Dioxide 24 D, Anion Gap 17.8 H, BUN 47 H, Creatinine 3.15 H, Estimated Creat Clear 32, Estimated GFR 23 L, Est GFR ( Amer) 27 L, Glucose 340 H D, Calcium 9.3 08/10/18 16:01: POC Glucose 176 H 08/10/18 16:55: Troponin I < 0.02 08/10/18 17:57: POC Glucose 62 L 08/10/18 18:05: Sodium 149 H, Potassium 3.1 L, Chloride 111 H, Carbon Dioxide 28, Anion Gap 13.1, BUN 45 H, Creatinine 2.90 H, Estimated Creat Clear 35, Estimated GFR 25 L, Est GFR ( Amer) 30 L, Glucose 101 D, Calcium 9.1 08/10/18 20:01: POC Glucose 236 H 08/10/18 21:46: Sodium 145, Potassium 3.0 L, Chloride 108 H, Carbon Dioxide 23, Anion Gap 17.0 H, BUN 40 H, Creatinine 2.74 H, Estimated Creat Clear 37, Estimated GFR 27 L, Est GFR ( Amer) 32 L, Glucose 192 H D, Calcium 8.6 08/10/18 22:01: POC Glucose 159 H 08/10/18 22:46: POC Glucose 124 H 08/10/18 23:56: POC Glucose 105 08/11/18 00:40: Sodium 145, Potassium 3.7 D, Chloride 109 H, Carbon Dioxide 25, Anion Gap 14.7, BUN 37 H, Creatinine 2.53 H, Estimated Creat Clear 40, Estimated GFR 29 L, Est GFR ( Amer) 35 L, Glucose 115 H D, Calcium 8.3 L, Total Bilirubin 0.5, Direct Bilirubin 0.3 H, Indirect Bilirubin 0.2, AST 148 H, ALT 178 H, Alkaline Phosphatase 1109 H, Total Protein 5.3 L, Albumin 2.2 L D, Lipase 7983 H 08/11/18 00:40: Acetone Level None detected 08/11/18 01:20: POC Glucose 142 H 08/11/18 03:28: POC Glucose 270 H 08/11/18 05:00: WBC 13.1 H, RBC 2.89 L, Hgb 10.0 L, Hct 29.4 L, MCV 101.7 H, MCH 34.6 H, MCHC 34.0, RDW 15.0, Plt Count 313 D, MPV 8.1, Neut % (Auto) 77.8, Lymph % (Auto) 17.2, [place] % (Auto) 3.3, Eos % (Auto) 1.4, Baso % (Auto) 0.2, Neut # (Auto) 10.2 H, Lymph # (Auto) 2.3, [place] # (Auto) 0.4, Eos # (Auto) 0.2, Baso # (Auto) 0.0 08/11/18 05:00: Sodium 142, Potassium 3.9, Chloride 108 H, Carbon Dioxide 21, Anion Gap 16.9 H, BUN 35 H, Creatinine 2.43 H, Estimated Creat Clear 41, Estimated GFR 31 L, Est GFR ( Amer) 37 L, Glucose 371 H D, Calcium 8.5 08/11/18 05:12: POC Glucose 364 H* I & O for Last 24 hours: Intake & Output 08/08/18 08/09/18 08/10/18 08/11/18 11:59 11:59 11:59 11:59 Intake Total 4720 / 4720 Output Total 400 / 400 Balance -385 / -385 4720 / 4720 Weight 151 lb 4 oz 155 lb 1 oz - Constitutional no acute distress - *Routine HEENT Exam Head: Present: normocephalic Eye: Present: EOMI, PERRL ENT: Present: mucous membranes dry - *Routine Neck Exam Present: supple - *Routine Respiratory Exam Present: decreased breath sounds - *Routine Cardiovascular Exam Present: RRR, murmur, S4 - *Routine Abdominal Exam Present: soft - *Routine Extremities Exam Absent: edema - *Routine Skin Exam Present: intact - *Routine Neurological Exam Present: alert, CN II-XII intact - Routine Psychiatric Exam Present: normal affect Assessment and Plan (1) Diabetes mellitus, insulin dependent (IDDM), uncontrolled Current visit: Yes Status: Acute Category: Medical Code(s): E10.65 - Type 1 diabetes mellitus with hyperglycemia (2) Diabetic ketoacidosis Current visit: Yes Status: Acute Qualifiers: Diabetes mellitus type: type 1 Diabetes mellitus complication detail: without coma Qualified Code(s): E10.10 - Type 1 diabetes mellitus with ketoacidosis without coma Category: Medical Code(s): E13.10 - Other specified diabetes mellitus with ketoacidosis without coma (3) Renal insufficiency Current visit: No Status: Acute Category: Medical Code(s): N28.9 - Disorder of kidney and ureter, unspecified (4) Pancreatitis Current visit: Yes Status: Acute Category: Medical Code(s): K85.90 - Acute pancreatitis without necrosis or infection, unspecified (5) Anemia Current visit: Yes Status: Acute Qualifiers: Anemia type: due to chronic kidney disease Category: Medical Code(s): D64.9 - Anemia, unspecified
--- NOTE | 2018-08-12 19:56 | Progress Note ---
Internal Medicine - PN: Subj *Date: 08/12/18 *Time: 12:00 Interval history: pt with elevated glu and return of acetone with no new vomiting Exam Vital signs and Labs for Last 24 Hours: Temp Pulse Resp BP Pulse Ox 98.8 F 79 16 158/93 H 100 08/12/18 15:38 08/12/18 18:00 08/12/18 18:00 08/12/18 18:00 08/12/18 18:00 Laboratory Results - last 24 hr 08/11/18 20:19: POC Glucose 226 H 08/11/18 23:06: POC Glucose 334 H* 08/12/18 06:25: Random Glucose 608 H* 08/12/18 11:00: POC Glucose 590 H* 08/12/18 11:10: Random Glucose 670 H* 08/12/18 11:10: Acetone Level Small 08/12/18 16:06: POC Glucose 589 H* 08/12/18 16:23: Random Glucose 616 H* 08/12/18 18:01: POC Glucose 558 H* 08/12/18 18:19: Random Glucose 565 H* I & O for Last 24 hours: Intake & Output 08/10/18 08/11/18 08/12/18 08/13/18 11:59 11:59 11:59 11:59 Intake Total 15 / 15 7120 / 7120 4294 / 4294 2120 Output Total 400 / 400 350 / 350 Balance -385 / -385 7120 / 7120 3944 / 3944 2120 Weight 151 lb 4 oz 155 lb 1 oz 172 lb 9.6 oz - Constitutional no acute distress - *Routine HEENT Exam Head: Present: normocephalic Eye: Present: EOMI, PERRL ENT: Present: mucous membranes dry - *Routine Neck Exam Absent: JVD - *Routine Respiratory Exam Present: CTA bilaterally - *Routine Cardiovascular Exam Present: RRR, murmur - *Routine Abdominal Exam Present: soft - *Routine Extremities Exam Present: edema - *Routine Skin Exam Present: intact - *Routine Neurological Exam Present: alert, oriented X3, CN II-XII intact - Routine Psychiatric Exam Present: normal affect Assessment and Plan (1) Diabetes mellitus, insulin dependent (IDDM), uncontrolled Current visit: Yes Status: Acute Category: Medical Code(s): E10.65 - Type 1 diabetes mellitus with hyperglycemia (2) Diabetic ketoacidosis Current visit: Yes Status: Acute Qualifiers: Diabetes mellitus type: type 1 Diabetes mellitus complication detail: without coma Qualified Code(s): E10.10 - Type 1 diabetes mellitus with ketoacidosis without coma Category: Medical Code(s): E13.10 - Other specified diabetes mellitus with ketoacidosis without coma (3) Renal insufficiency Current visit: No Status: Acute Category: Medical Code(s): N28.9 - Disorder of kidney and ureter, unspecified (4) Pancreatitis Current visit: Yes Status: Acute Category: Medical Code(s): K85.90 - Acute pancreatitis without necrosis or infection, unspecified (5) Anemia Current visit: Yes Status: Acute Qualifiers: Anemia type: due to chronic kidney disease Category: Medical Code(s): D64.9 - Anemia, unspecified
[2018-08-12 20:23] LABS: Anion Gap 16.5 mEq/L (5-15); Potassium 4.5 mmoL/L (3.5-5.1)
[2018-08-12 20:51] LABS: Calcium 7.6 mg/dL (8.5-10.1)
[2018-08-13 08:47] LABS: Basophils # 0.1 K/mm3 (0-0.2); Basophils % 0.7 % (0.1-2.0); Eosinophils # 0.4 K/mm3 (0.0-0.4); Eosinophils % 3.1 % (0.1-12.0); Lymphocytes # 3.3 K/mm3 (0.7-4.5); Mean Corpuscular HGB Conc 29.9 g/dL (31.8-35.4); Mean Corpuscular Hemoglobin 31.1 pg (27.0-31.2); Mean Corpuscular Volume 103.8 fl (80-94); Mean Platelet Volume 8.9 fl (7.4-10.4); Monocytes # 0.4 K/mm3 (0.1-1.0); Monocytes % 3.2 % (1.7-9.3); Neutrophils # 7.3 K/mm3 (1.8-7.8); Platelet Count 256 K/mm3 (142-424); Red Blood Count 2.89 M/mm3 (4.60-6.20); White Blood Count 11.5 K/mm3 (4.8-10.8)
[2018-08-13 08:55] LABS: Acetone, Serum (Rapid) Small (None Detect)
[2018-08-13 09:00] LABS: Anion Gap 21.4 mEq/L (5-15); Blood Urea Nitrogen 35 mg/dL (7-18); Calcium 7.9 mg/dL (8.5-10.1); Carbon Dioxide 14 mmol/L (21.0-32.0); Chloride 99 mmol/L (98-107); Potassium 4.4 mmoL/L (3.5-5.1); Sodium 130 mmol/L (136-145)
[2018-08-13 09:07] LABS: Glucose 564 mg/dL (74-106); Lipase 5855 u/L (73-393)
--- NOTE | 2018-08-13 12:50 | Progress Note ---
Internal Medicine - PN: Subj *Date: 08/13/18 *Time: 08:30 Interval history: doing and amaury diet better Exam Vital signs and Labs for Last 24 Hours: Temp Pulse Resp BP Pulse Ox 97.7 F 100 H 14 145/91 H 100 08/13/18 12:00 08/13/18 12:00 08/13/18 12:00 08/13/18 12:00 08/13/18 12:00 Laboratory Results - last 24 hr 08/12/18 16:06: POC Glucose 589 H* 08/12/18 16:23: Random Glucose 616 H* 08/12/18 18:01: POC Glucose 558 H* 08/12/18 18:19: Random Glucose 565 H* 08/12/18 20:00: Acetone Level None detected 08/12/18 20:00: Sodium 132 L, Potassium 4.5, Chloride 101, Carbon Dioxide 19 L, Anion Gap 16.5 H, BUN 32 H, Creatinine 2.54 H, Estimated Creat Clear 45, Estimated GFR 29 L, Est GFR ( Amer) 35 L, Glucose 486 H*, Calcium 7.6 L D 08/12/18 21:04: POC Glucose 390 H* 08/13/18 06:23: POC Glucose 595 H* 08/13/18 08:15: WBC 11.5 H, RBC 2.89 L, Hgb 9.0 L, Hct 30.0 L, MCV 103.8 H, MCH 31.1, MCHC 29.9 L, RDW 15.0, Plt Count 256, MPV 8.9, Neut % (Auto) 64.0, Lymph % (Auto) 29.0, [place] % (Auto) 3.2, Eos % (Auto) 3.1, Baso % (Auto) 0.7, Neut # (Auto) 7.3, Lymph # (Auto) 3.3, [place] # (Auto) 0.4, Eos # (Auto) 0.4, Baso # (Auto) 0.1 08/13/18 08:15: Sodium 130 L, Potassium 4.4, Chloride 99, Carbon Dioxide 14 L D, Anion Gap 21.4 H, BUN 35 H, Creatinine 2.39 H, Estimated Creat Clear 47, Estimated GFR 31 L, Est GFR ( Amer) 38 L, Glucose 564 H*, Calcium 7.9 L, Lipase 5855 H, Acetone Level Small 08/13/18 11:05: POC Glucose 465 H* I & O for Last 24 hours: Intake & Output 08/11/18 08/12/18 08/13/18 08/14/18 11:59 11:59 11:59 11:59 Intake Total 7120 / 7120 4294 / 4294 4079 / 4079 Output Total 350 / 350 1400 / 1400 Balance 7120 / 7120 3944 / 3944 2679 / 2679 Weight 155 lb 1 oz 171 lb 3 oz - Constitutional no acute distress - *Routine HEENT Exam Head: Present: normocephalic Eye: Present: EOMI, PERRL ENT: Present: mucous membranes dry - *Routine Neck Exam Present: supple - *Routine Respiratory Exam Present: CTA bilaterally - *Routine Cardiovascular Exam Present: RRR, murmur - *Routine Abdominal Exam Present: soft - *Routine Extremities Exam Absent: calf tenderness - *Routine Skin Exam Present: intact - *Routine Neurological Exam Present: alert, oriented X3, CN II-XII intact - Routine Psychiatric Exam Present: normal affect Assessment and Plan (1) Diabetes mellitus, insulin dependent (IDDM), uncontrolled Current visit: Yes Status: Acute Category: Medical Code(s): E10.65 - Type 1 diabetes mellitus with hyperglycemia (2) Diabetic ketoacidosis Current visit: Yes Status: Acute Qualifiers: Diabetes mellitus type: type 1 Diabetes mellitus complication detail: without coma Qualified Code(s): E10.10 - Type 1 diabetes mellitus with ketoacidosis without coma Category: Medical Code(s): E13.10 - Other specified diabetes mellitus with ketoacidosis without coma (3) Renal insufficiency Current visit: No Status: Acute Category: Medical Code(s): N28.9 - Disorder of kidney and ureter, unspecified (4) Pancreatitis Current visit: Yes Status: Acute Category: Medical Code(s): K85.90 - Acute pancreatitis without necrosis or infection, unspecified (5) Anemia Current visit: Yes Status: Acute Qualifiers: Anemia type: due to chronic kidney disease Category: Medical Code(s): D64.9 - Anemia, unspecified
[2018-08-14 06:22] LABS: Anion Gap 13.7 mEq/L (5-15); Calcium 7.8 mg/dL (8.5-10.1); Potassium 3.7 mmoL/L (3.5-5.1)
[2018-08-14 06:31] LABS: Basophils # 0.1 K/mm3 (0-0.2); Basophils % 0.6 % (0.1-2.0); Eosinophils # 0.6 K/mm3 (0.0-0.4); Eosinophils % 5.6 % (0.1-12.0); Hematocrit 26.2 % (42.0-52.0); Hemoglobin 8.4 g/dL (14.1-18.0); Lymphocytes # 3.2 K/mm3 (0.7-4.5); Lymphocytes % 31.5 K/mm3 (10-50); Mean Corpuscular Hemoglobin 32.2 pg (27.0-31.2); Mean Corpuscular Volume 100.5 fl (80-94); Mean Platelet Volume 9.2 fl (7.4-10.4); Monocytes # 0.3 K/mm3 (0.1-1.0); Monocytes % 3.4 % (1.7-9.3); Neutrophils % 58.9 % (37.0-80.0); Platelet Count 261 K/mm3 (142-424); Red Cell Distribution Width 15.4 % (11.5-17.5); White Blood Count 10.1 K/mm3 (4.8-10.8)
[2018-08-14 06:47] LABS: Alanine Aminotransferase 144 U/L (12-78); Albumin Level 2.1 gm/dL (3.4-5.0); Aspartate Amino Transferase 163 U/L (15-37); Bilirubin,Direct 0.2 mg/dL (0.0-0.2); Bilirubin,Indirect 0.1 mg/dL (0.0-0.9); Bilirubin,Total 0.3 mg/dL (0.2-1.0); Total Protein,Serum 5.3 gm/dL (6.4-8.2)
[2018-08-14 07:10] LABS: Lipase 4452 u/L (73-393)
[2018-08-14 07:12] LABS: Acetone, Serum (Rapid) None Detected (None Detect)
[2018-08-14 07:44] LABS: Alkaline Phosphatase 1096 U/L (46-116)
--- NOTE | 2018-08-14 13:35 | Discharge Summary ---
General - General Admission date:: 08/10/18 Discharge date: 08/14/18 HPI HPI: this wm who has iddm and recurrent pancreatitis presented with vomiting and not feeling well - he reports he has been compliant with meds and diet - he was found to have dka and elevated lft and renal function - he was given insulin and fluids and admitted for treatment - pt has had pancreatitis in past sec to [facility] Hospital Course Hospital Course: pt has progressed slowly on ivf and insulin with dec glu and acetone - he has continued with elevated lft and lipase but able to eat and amaury fluids - he had to be in step down again as he dev ketones again - pt with no chest pain at this time and has appt with endo - labs were improving and d/c to follow up with pcp Objective Vital signs: Temp Pulse Resp BP Pulse Ox 98.5 F 70 18 168/98 H 100 08/14/18 11:35 08/14/18 08:00 08/14/18 06:00 08/14/18 06:00 08/14/18 07:43 no acute distress - *Routine HEENT Exam Head: Present: normocephalic Eye: Present: EOMI, PERRL ENT: Present: mucous membranes dry - *Routine Neck Exam Present: supple - *Routine Respiratory Exam Present: CTA bilaterally - *Routine Cardiovascular Exam Present: RRR, murmur - *Routine Abdominal Exam Present: soft. Absent: tenderness - *Routine Extremities Exam Present: edema - *Routine Skin Exam Present: intact - *Routine Neurological Exam Present: alert, oriented X3, CN II-XII intact - Routine Psychiatric Exam Present: normal affect Results Labs on day of discharge: Labs from last 24 hours 08/14/18 08/14/18 08/14/18 11:33 05:43 05:43 WBC 10.1 RBC 2.60 L Hgb 8.4 L Hct 26.2 L MCV 100.5 H MCH 32.2 H MCHC 32.0 RDW 15.4 Plt Count 261 MPV 9.2 Neut % (Auto) 58.9 Lymph % (Auto) 31.5 [place] % (Auto) 3.4 Eos % (Auto) 5.6 Baso % (Auto) 0.6 Neut # (Auto) 6.0 Lymph # (Auto) 3.2 [place] # (Auto) 0.3 Eos # (Auto) 0.6 H Baso # (Auto) 0.1 Sodium Potassium Chloride Carbon Dioxide Anion Gap BUN Creatinine Estimated Creat Clear Estimated GFR Est GFR ( Amer) Glucose POC Glucose 277 H Calcium Total Bilirubin 0.3 Direct Bilirubin 0.2 Indirect Bilirubin 0.1 AST 163 H ALT 144 H Alkaline Phosphatase 1096 H Total Protein 5.3 L Albumin 2.1 L Lipase 4452 H Acetone Level None detected 08/14/18 08/14/18 08/14/18 05:43 05:41 03:01 WBC RBC Hgb Hct MCV MCH MCHC RDW Plt Count MPV Neut % (Auto) Lymph % (Auto) [place] % (Auto) Eos % (Auto) Baso % (Auto) Neut # (Auto) Lymph # (Auto) [place] # (Auto) Eos # (Auto) Baso # (Auto) Sodium 138 Potassium 3.7 Chloride 103 Carbon Dioxide 25 D Anion Gap 13.7 BUN 26 H D Creatinine 1.82 H D Estimated Creat Clear 63 Estimated GFR 43 L Est GFR ( Amer) 52 L D Glucose 130 H D POC Glucose 131 H 146 H Calcium 7.8 L Total Bilirubin Direct Bilirubin Indirect Bilirubin AST ALT Alkaline Phosphatase Total Protein Albumin Lipase Acetone Level 08/13/18 08/13/18 08/13/18 21:50 20:10 16:56 WBC RBC Hgb Hct MCV MCH MCHC RDW Plt Count MPV Neut % (Auto) Lymph % (Auto) [place] % (Auto) Eos % (Auto) Baso % (Auto) Neut # (Auto) Lymph # (Auto) [place] # (Auto) Eos # (Auto) Baso # (Auto) Sodium Potassium Chloride Carbon Dioxide Anion Gap BUN Creatinine Estimated Creat Clear Estimated GFR Est GFR ( Amer) Glucose POC Glucose 370 H* 454 H* Calcium Total Bilirubin Direct Bilirubin Indirect Bilirubin AST ALT Alkaline Phosphatase Total Protein Albumin Lipase Acetone Level None detected 08/12/18 08/10/18 08/10/18 06:13 10:04 08:02 WBC RBC Hgb Hct MCV MCH MCHC RDW Plt Count MPV Neut % (Auto) Lymph % (Auto) [place] % (Auto) Eos % (Auto) Baso % (Auto) Neut # (Auto) Lymph # (Auto) [place] # (Auto) Eos # (Auto) Baso # (Auto) Sodium Potassium Chloride Carbon Dioxide Anion Gap BUN Creatinine Estimated Creat Clear Estimated GFR Est GFR ( Amer) Glucose POC Glucose > 600 H* > 600 H* > 600 H* Calcium Total Bilirubin Direct Bilirubin Indirect Bilirubin AST ALT Alkaline Phosphatase Total Protein Albumin Lipase Acetone Level 08/10/18 04:37 WBC RBC Hgb Hct MCV MCH MCHC RDW Plt Count MPV Neut % (Auto) Lymph % (Auto) [place] % (Auto) Eos % (Auto) Baso % (Auto) Neut # (Auto) Lymph # (Auto) [place] # (Auto) Eos # (Auto) Baso # (Auto) Sodium Potassium Chloride Carbon Dioxide Anion Gap BUN Creatinine Estimated Creat Clear Estimated GFR Est GFR ( Amer) Glucose POC Glucose > 600 H* Calcium Total Bilirubin Direct Bilirubin Indirect Bilirubin AST ALT Alkaline Phosphatase Total Protein Albumin Lipase Acetone Level DS: Diagnosis - Discharge Diagnosis (1) Diabetes mellitus, insulin dependent (IDDM), uncontrolled Status: Acute (2) Diabetic ketoacidosis Status: Acute (3) Renal insufficiency Status: Acute (4) Pancreatitis Status: Acute (5) Anemia Status: Acute Discharge Plan - Patient Discharge Instructions ACTIVITY: Continue current activity DIET: continue same diet - Follow up Plan Disposition: Home, Self-Prison Medications: Home Medications Medication Instructions Recorded Confirmed Type Gabapentin [Gabapentin 800mg Tab] 800 mg PO QID 12/19/17 08/10/18 History Insulin Aspart [Novolog] 0 unit SQ DAILY 12/19/17 08/10/18 History insulin glargine (U- 100) 100 35 unit SQ HS ml 08/07/18 08/10/18 History unit/mL subcutaneous solution Carvedilol [Coreg 3.125mg Tablet] 3.125 mg PO BID 08/10/18 08/10/18 History Lisinopril [Zestril 5mg 5 mg PO DAILY 08/10/18 08/10/18 History Tablet] Prescriptions/Medication Reconciliation: New Insulin Detemir [Levemir 100units/mL 3mL flexpen] 35 unit SQ HS insuln.pen Continue insulin glargine (U- 100) 100 unit/mL subcutaneous solution 35 unit SQ HS ml Gabapentin [Gabapentin 800mg Tab] 800 mg PO QID Carvedilol [Coreg 3.125mg Tablet] 3.125 mg PO BID Insulin Aspart [Novolog] 0 unit SQ DAILY Discontinued Lisinopril [Zestril 5mg Tablet] 5 mg PO DAILY
== END 2018-08-14 14:09 | disposition home or self-care (01) ==
LOC: 2ND 04:37 → ER 04:37 → OBSVTOIN 06:37 → 2ND 06:38
PROVIDERS: ADMIT Emergency Medicine; ATTEND Emergency Medicine

== ENCOUNTER 2018-09-05 09:00 | Inpatient (IN) ==
--- NOTE | 2018-09-05 08:38 | Emergency Department Note ---
ED Disposition Clinical Impression: DKA (diabetic ketoacidoses) Qualifiers: Diabetes mellitus type: type 1 Diabetes mellitus complication detail: without coma Qualified Code(s): E10.10 - Type 1 diabetes mellitus with ketoacidosis without coma Disposition: Still a Patient Condition on Discharge: Serious Referrals: Provider,Referral, [Primary Care Provider] - - Critical Care Critical Care Time: Yes Attestation: On , the high probability of a clinically significant, sudden or life threatening deterioration of the following system(s) required my full and direct attention, intervention and personal management. The time I documented below is in addition to time spent performing reported procedures but includes the follow ing listed in this critical care notation. Total Critical Care Time: 35 Vital system(s) involved:: Metabolic Failure My critical care processes included: Assessment & monitoring of V/S, Initial and Re-exams, Data Review/Interpretation, Coordinating Care, Medication Orders and management, Documentation Medical Decision Making - Michael Inquiry Pt receiving controlled substance: No Vital Signs: 09/05/18 08:31 09/05/18 08:55 09/05/18 09:00 Temperature 98.0 F 97.7 F Temperature Source Temporal Artery Scan Temporal Artery Scan Pulse Rate [Right Brachial] 133 H 121 H 123 H Respiratory Rate 42 H 40 H 24 Blood Pressure [Right Arm] 166/106 H 160/107 H Blood Pressure Mean [Right Arm] 126 124 02 Sat by Pulse Oximetry 100 100 96 Oxygen Delivery Method Room Air Room Air Room Air - Lab Data Lab Results 09/05/18 08:40: WBC 12.6 H, RBC 3.61 L, Hgb 11.8 L, Hct 41.2 L, MCV 114.3 H, MCH 32.6 H, MCHC 28.6 L, RDW 14.7, Plt Count 562 H, MPV 8.9, Neut % (Auto) 83.5 H, L ymph % (Auto) 12.3, [place] % (Auto) 3.1, Eos % (Auto) 0.3, Baso % (Auto) 0.8, Neut # (Auto) 10.5 H, Lymph # (Auto) 1.6, [place] # (Auto) 0.4, Eos # (Auto) 0.0, Baso # (Auto) 0.1 09/05/18 08:40: Sodium 131 L, Potassium 5.9 H, Chloride 89 L, Carbon Dioxide 6 L*, Anion Gap 41.9 H, BUN 75 H, Creatinine 4.35 H, Estimated Creat Clear 23, Estimated GFR 16 L*, Est GFR ( Amer) 19 L*, Glucose , Calcium 9.4, Total Bilirubin 0.7, AST 185 H, ALT 279 H, Alkaline Phosphatase 1666 H, Troponin I < 0.02, Total Protein 7.4 D, Albumin 2.8 L, Globulin 4.6 H, Albumin/Globulin Ratio 0.6 L, Amylase 93, Lipase 1841 H 09/05/18 08:40: Phosphorus 8.9 H, Magnesium 3.1 H, Acetone Level Small Result diagrams: 09/05/18 08:40 09/05/18 08:40 Orders (Tests/Meds): ED MEDICATIONS Generic Name Dose Route Start Last Admin Trade Name Freq PRN Reason Stop Dose Admin Sodium Chloride 1,000 mls @ 999 mls/hr 09/05/18 08:45 09/05/18 08:51 Sod Chlor 0.9% 1000ml Bag IV 09/05/18 09:45 999 mls/hr .[id number] CASTILLO Administration Insulin Human Regular 100 unit 101 mls @ 6.87 mls/hr 09/05/18 09:30 / Sodium Chloride IV 10/05/18 09:29 .[id number] CASTILLO Protocol 0.1 UNITS/KG/HR ORDERS Category Date Time Status XR chest portable Stat Exams 09/05/18 08:54 Taken Drug Screen,Urine Stat Lab 09/05/18 08:47 Ordered Glucose,Random Stat Lab 09/05/18 08:40 Received Urinalysis and Microscopic Stat Lab 09/05/18 08:37 Ordered Arterial Blood Gas Routine RT 09/05/18 08:47 Received Venous Blood Gas Stat RT 09/05/18 08:47 Ordered - Radiology Data #1 Image(s): Chest Image Reviewed: Yes I reviewed the patient's radiology image Preliminary Findings: Normal/NAD - ECG Data Tracing #1 EKG interpreted by Wilver Stewart MD: Rhythm: sinus tachycardia Rate: 132 [place]: normal Ectopy: none Conduction: normal ST Segment Changes: none T Wave Changes: Peaked in V2 Q Waves: none No evidence of acute ischemia or injury - Physician Consults Physician Consulted: Sterling (present) Time: 09:30 Reason -: Admission Comment/Response: Agrees to admit the patient to the hospital. We discussed the patient's clinical information, including history, exam, laboratory and radiology results and ED course. Per hospital procedure, I will write temporary bridge inpatient orders on the patient. Specific orders requested by the admit ethan physician: ADA protocol General Adult HPI - General Chief complaint: Hyper/Hypoglycemia Stated complaint: HYPERGLYCEMIA Time Seen by Provider: 09/05/18 08:37 Mode of Arrival: EMS Limitations: No Limitations Description of Symptoms (Recalled from ER Triage Doc. by RN): FOUND IN CHAIR NOT RESPONDING VERY WELL THIS MORNING. HYPERGLYCEMIC READING NOTED BY EMS: GAVE HIM 24 UNITS OF INSULIN AT 645 THIS MORNING AND 12 UNITS OF INSULIN PRIOR TO LEAVING HOUSE WITH EMS. NO CHANGE IN STATUS. WOKE UP ENOUGH TO TRANSFER HIMSELF TO STRETCHER - History of Present Illness HPI narrative: Poor historian, altered mental status. Brought in by ambulance with report of decreased responsiveness, elevated blood sugar. Known to be a type I diabetic with recurrent diabetic ketoacidosis and recurrent pancreatitis suspected to be from hyperlipidemia. Patient states that he feels "drowsy". Does not voice any other complaints. - Related Data Home Medications Medication Instructions Recorded Confirmed Gabapentin [Gabapentin 800mg Tab] 800 mg PO QID 12/19/17 09/05/18 Insulin Aspart [Novolog] 0 unit SQ DAILY 12/19/17 09/05/18 insulin glargine (U- 100) 100 35 unit SQ HS ml 08/07/18 09/05/18 unit/mL subcutaneous solution Carvedilol [Coreg 3.125mg Tablet] 3.125 mg PO BID 08/10/18 09/05/18 Insulin Detemir [Levemir 35 unit SQ HS 08/19/18 09/05/18 100units/mL 3mL flexpen] Lisinopril [Lisinopril 5mg Tablet] 5 mg PO DAILY 09/05/18 09/05/18 Phenazopyridine HCl [Pyridium 200 pow PO TID 09/05/18 09/05/18 200mg Tablet] Sulfamethoxazole/Trimethoprim 1 each PO BID 09/05/18 09/05/18 [Bactrim DS tablet] Allergies Allergy/AdvReac Type Severity Reaction Status Date / Time Penicillins [PENICILLINS] Allergy Severe I-HIVES Verified 08/19/18 00:44 [facility] History I have reviewed the patient's past medical history: Yes Medical History: Reports:: Diabetes Mellitus Type 1, Hyperlipidemia, H ypertension, Renal Insufficiency Denies:: Cancer, Diabetes Mellitus Type 2, MRSA Other Medical History: Reports: Other Comment: high heart rate Laterality Cases: Bilateral: Tonsillectomy Other Surgeries: Yes: No Previous Surgery, Other (tonsillectomy) Amputation: No Fractures: No - Social History Educational Level: Completed High School Smoking Status: Never smoker Tobacco Type: smokeless tobacco # Packs/Day (cigarettes): 1 Alcohol Intake: never Alcohol Intake Frequency:: a few times a month Substance Use Type: denies use Occupational Status: employed Housing: apartment Household Members: spouse, family, children - Psychiatric History Expresses thoughts of harming self/others: None Suicide Plan Description: No Plan Family Hx:: Cancer, Diabetes, Hyperlipidemia, Hypertension, Stroke ROS Obtained: Yes unobtainable due to mental status Physical Exam - General General appearance: other (drowsy) Comment: Tachypnea, tachycardic - Head Head exam: atraumatic, normocephalic - Eye Eye exam: Present: normal appearance, PERRL, EOMI - ENT ENT exam: Present: mucous membranes dry - Neck Neck exam: Present: normal inspection - Chest Chest inspection: Present: symmetric chest wall rise - Respiratory Respiratory exam: Present: normal lung sounds bilaterally - Cardiovascular Cardiovascular exam: Present: tachycardia, normal heart sounds - Abdominal Exam Abdominal exam: Present: soft. Absent: distention, tenderness - Extremities Exam Extremities exam: Present: normal inspection - Neurological Exam Neurological exam: Present: other (drowsy) - Skin Skin exam: Present: warm, dry
[2018-09-05 08:54] LABS: Basophils # 0.1 K/mm3 (0-0.2); Basophils % 0.8 % (0.1-2.0); Eosinophils % 0.3 % (0.1-12.0); Hematocrit 41.2 % (42.0-52.0); Hemoglobin 11.8 g/dL (14.1-18.0); Lymphocytes # 1.6 K/mm3 (0.7-4.5); Lymphocytes % 12.3 K/mm3 (10-50); Mean Corpuscular HGB Conc 28.6 g/dL (31.8-35.4); Mean Corpuscular Hemoglobin 32.6 pg (27.0-31.2); Mean Corpuscular Volume 114.3 fl (80-94); Mean Platelet Volume 8.9 fl (7.4-10.4); Monocytes # 0.4 K/mm3 (0.1-1.0); Monocytes % 3.1 % (1.7-9.3); Neutrophils # 10.5 K/mm3 (1.8-7.8); Neutrophils % 83.5 % (37.0-80.0); Platelet Count 562 K/mm3 (142-424); Red Blood Count 3.61 M/mm3 (4.60-6.20); Red Cell Distribution Width 14.7 % (11.5-17.5); White Blood Count 12.6 K/mm3 (4.8-10.8)
[2018-09-05 09:09] LABS: Acetone, Serum (Rapid) Small (None Detect); Phosphorous 8.9 mg/dL (2.4-4.9)
[2018-09-05 09:14] LABS: Alanine Aminotransferase 279 U/L (12-78); Albumin Level 2.8 gm/dL (3.4-5.0); Albumin/Globulin Ratio 0.6 (1.1-1.8); Amylase 93 U/L (25-125); Anion Gap 41.9 mEq/L (5-15); Aspartate Amino Transferase 185 U/L (15-37); Bilirubin,Total 0.7 mg/dL (0.2-1.0); Blood Urea Nitrogen 75 mg/dL (7-18); Calcium 9.4 mg/dL (8.5-10.1); Chloride 89 mmol/L (98-107); Globulin 4.6 gm/dl (1.3-3.2); Lipase 1841 u/L (73-393); Potassium 5.9 mmoL/L (3.5-5.1); Sodium 131 mmol/L (136-145); Total Protein,Serum 7.4 gm/dL (6.4-8.2)
[2018-09-05 09:16] LABS: Carbon Dioxide 6 mmol/L (21.0-32.0)
[2018-09-05 09:17] LABS: Alkaline Phosphatase 1666 U/L (46-116)
--- NOTE | 2018-09-05 09:55 | History & Physical Report ---
*Admission Date: 09/05/18 *Chief complaint: weakness *History of present illness: this wm who has known iddm who presented to ed this am by ems - he felt dizzyness FOUND IN CHAIR NOT RESPONDING VERY WELL THIS MORNING. HYPERGLYCEMIC READING NOTED BY EMS: GAVE HIM 24 UNITS OF INSULIN AT 645 THIS MORNING AND 12 UNITS OF INSULIN PRIOR TO LEAVING HOUSE WITH EMS. NO CHANGE IN STATUS. WOKE UP ENOUGH TO TRANSFER HIMSELF TO [facility] - History of Present Illness HPI narrative: Poor historian, altered mental status. Brought in by ambulance with report of decreased responsiveness, elevated blood sugar. Known to be a type I diabetic with recurrent diabetic ketoacidosis and recurrent pancreatitis suspected to be from hyperlipidemia. Patient states that he feels "drowsy". Does not voice any other complaints. pt admitted for ivf and insulin and follow labs - he has had elevated lft and lipase in past [facility] History I have reviewed the patient's past medical history: Yes Medical History: Reports:: Diabetes Mellitus Type 1, Hyperlipidemia, Hypertension, Renal Insufficiency Denies:: Cancer, Diabetes Mellitus Type 2, MRSA Other Medical History: Reports: Other Laterality Cases: Bilateral: Tonsillectomy Other Surgeries: Yes: No Previous Surgery, Other (tonsillectomy) Amputation: No Fractures: No - *Social History Educational Level: Completed High School Smoking Status: Never smoker Tobacco Type: smokeless tobacco # Packs/Day (cigarettes): 1 Alcohol Intake: never Alcohol Intake Frequency:: a few times a month Substance Use Type: denies use Occupational Status: employed Housing: apartment Household Members: spouse, family, children - Psychiatric History Expresses thoughts of harming self/others: None Suicide Plan Description: No Plan *Family Hx:: Cancer, Diabetes, Hyperlipidemia, Hypertension, Stroke Review of Systems - Review of Systems Review of systems:: pertinent systems reviewed and negative unless documented below - Constitutional Reports lack of energy, Denies fever(s) - Eyes Denies discharge - ENT Denies sore throat - *Cardiovascular Denies chest pain at rest - *Respiratory Denies cough - *Gastrointestinal Reports nausea, Denies abdominal pain - *Genitourinary Denies blood in urine - *Musculoskeletal Denies joint pain - Integumentary/Breasts Denies rash - *Neurologic Denies seizure-like activity - Psychiatric Denies anxiety Meds Home Medications Medication Instructions Recorded Confirmed Type Gabapentin [Gabapentin 800mg Tab] 800 mg PO QID 12/19/17 09/05/18 History Insulin Aspart [Novolog] 0 unit SQ DAILY 12/19/17 09/05/18 History insulin glargine (U- 100) 100 35 unit SQ HS ml 08/07/18 09/05/18 History unit/mL subcutaneous solution Carvedilol [Coreg 3.125mg Tablet] 3.125 mg PO BID 08/10/18 09/05/18 History Insulin Detemir [Levemir 35 unit SQ HS 08/19/18 09/05/18 History 100units/mL 3mL flexpen] Lisinopril [Lisinopril 5mg Tablet] 5 mg PO DAILY 09/05/18 09/05/18 History Phenazopyridine HCl [Pyridium 200 pow PO TID 09/05/18 09/05/18 History 200mg Tablet] Sulfamethoxazole/Trimethoprim 1 each PO BID 09/05/18 09/05/18 History [Bactrim DS tablet] Allergies Allergy/AdvReac Type Severity Reaction Status Date / Time Penicillins [PENICILLINS] Allergy Severe I-HIVES Verified 08/19/18 00:44 Exam Vital signs and Labs for Last 24 Hours: Temp Pulse Resp BP Pulse Ox 97.3 F L 116 H 34 H 184/113 H 100 09/05/18 09:35 09/05/18 09:35 09/05/18 09:35 09/05/18 09:35 09/05/18 09:35 Laboratory Results - last 24 hr 09/05/18 08:40: WBC 12.6 H, RBC 3.61 L, Hgb 11.8 L, Hct 41.2 L, MCV 114.3 H, MCH 32.6 H, MCHC 28.6 L, RDW 14.7, Plt Count 562 H, MPV 8.9, Neut % (Auto) 83.5 H, Lymph % (Auto) 12.3, [place] % (Auto) 3.1, Eos % (Auto) 0.3, Baso % (Auto) 0.8, Neut # (Auto) 10.5 H, Lymph # (Auto) 1.6, [place] # (Auto) 0.4, Eos # (Auto) 0.0, Baso # (Auto) 0.1 09/05/18 08:40: Sodium 131 L, Potassium 5.9 H, Chloride 89 L, Carbon Dioxide 6 L*, Anion Gap 41.9 H, BUN 75 H, Creatinine 4.35 H, Estimated Creat Clear 23, Estimated GFR 16 L*, Est GFR ( Amer) 19 L*, Glucose , Calcium 9.4, Total Bilirubin 0.7, AST 185 H, ALT 279 H, Alkaline Phosphatase 1666 H, Troponin I < 0.02, Total Protein 7.4 D, Albumin 2.8 L, Globulin 4.6 H, Albumin/Globulin Ratio 0.6 L, Amylase 93, Lipase 1841 H 09/05/18 08:40: Random Glucose 1160 H* D 09/05/18 08:40: Phosphorus 8.9 H, Magnesium 3.1 H, Acetone Level Small I & O for Last 24 hours: Intake & Output 09/02/18 09/03/18 09/04/18 09/05/18 11:59 11:59 11:59 11:59 Weight 150 lb - Constitutional no acute distress, cooperative, somnolent - *Routine HEENT Exam Head: Present: normocephalic, atraumatic Eye: Present: EOMI, PERRL ENT: Present: mucous membranes dry - *Routine Neck Exam Present: supple - *Routine Respiratory Exam Present: CTA bilaterally - *Routine Cardiovascular Exam Present: RRR, murmur - *Routine Abdominal Exam Present: soft - *Routine Extremities Exam Absent: calf tenderness - *Routine Skin Exam Present: intact - *Routine Neurological Exam Present: alert, oriented X3, CN II-XII intact. Absent: hemineglect - Routine Psychiatric Exam Present: normal affect Assessment and Plan (1) Pancreatitis Current visit: Yes Status: Acute Category: Medical Code(s): K85.90 - Acute pancreatitis without necrosis or infection, unspecified (2) Diabetic ketoacidosis Current visit: Yes Status: Acute Qualifiers: Diabetes mellitus type: type 1 Diabetes mellitus complication detail: without coma Qualified Code(s): E10.10 - Type 1 diabetes mellitus with ketoa cidosis without coma Category: Medical Code(s): E13.10 - Other specified diabetes mellitus with ketoacidosis without coma (3) Abnormal liver function tests Current visit: No Status: Acute Category: Medical Code(s): R94.5 - Abnormal results of liver function studies
[2018-09-05 10:14] LABS: ABG Base Excess -24.8 mmol/L (-2.4-2.3); ABG HCO3 3.6 mmhg (22.0-26.0); ABG Oxygen Saturation 98 % (90-100); ABG PO2 141.7 mmhg (80-100)
[2018-09-05 10:21] LABS: ABG PH 7.18 mmol/L (7.35-7.45); Allen's Test ACCEPTABLE; Oxygen ROOM AIR %
[2018-09-05 10:22] LABS: ABG PCO2 10.1 mmhg (35.0-45.0)
[2018-09-05 11:38] LABS: Glucose 1160 mg/dL (74-106)
[2018-09-05 12:33] LABS: Glucose,Random 738 mg/dL (70-110)
[2018-09-05 13:26] LABS: Acetone, Serum (Rapid) Moderate (None Detect)
[2018-09-05 14:05] LABS: Amphetamine/Metha Screen,Urine Negative ng/mL (<1000); Barbiturates Screen,Urine Negative ng/mL (<200); Benzodiazepines Screen,Urine Negative ng/mL (<200); Cannabinoid Screen,Urine Negative ng/mL (<50); Cocaine Screen,Urine Negative ng/mL (<300); Methadone Screen,Urine Negative ng/mL (<300); Opiate Screen,Urine Negative ng/mL (<300); Phencyclidine Screen,Urine Negative ng/mL (<25)
[2018-09-05 15:15] LABS: Anion Gap 22.8 mEq/L (5-15); Calcium 8.6 mg/dL (8.5-10.1); Potassium 3.8 mmoL/L (3.5-5.1)
--- NOTE | 2018-09-05 15:52 | Pharmacy Consult Notes ---
[facility] Pharmacy VTE Monitoring - Patient Demographics Admission date: 09/05/18 Report Date: 09/05/18 Time: 15:52 Allergies/Adverse Reactions: Patient Allergies Penicillins [PENICILLINS] Allergy (Severe, Verified 08/19/18 00:44) I-HIVES Height: 1.7 m Weight: 64.954 kg Patient Problems: Current Active Problems Diabetic ketoacidosis (Acute) Pancreatitis (Acute) - VTE Risk Labs: VTE Related Lab Results Hgb 11.8 g/dL (14.1-18.0) L 09/05/18 08:40 Hct 41.2 % (42.0-52.0) L 09/05/18 08:40 Plt Count 562 K/mm3 (142-424) H 09/05/18 08:40 BUN 62 mg/dL (7-18) H 09/05/18 14:40 Creatinine 3.87 mg/dL (0.70-1.30) H 09/05/18 14:40 Estimated Creat Clear 24 mL/min (0-300) 09/05/18 14:40 Was VTE Risk Assessment Performed: Yes VTE Score: 0 Clinical Trial Participant: No - Prophylaxis VTE Prophylaxis Ordered?: Yes Types of VTE Prophylaxis: TEDS Knee High Location of Applied Device: Not Applicable
--- NOTE | 2018-09-05 15:53 | Pharmacy Consult Notes ---
[facility] Pharmacy VTE Monitoring - Patient Demographics Allergies/Adverse Reactions: Patient Allergies Penicillins [PENICILLINS] Allergy (Severe, Verified 08/19/18 00:44) I-HIVES Height: 1.7 m Weight: 64.954 kg Patient Problems: Current Active Problems Diabetic ketoacidosis (Acute) Pancreatitis (Acute) - VTE Risk Labs: VTE Related Lab Results Hgb 11.8 g/dL (14.1-18.0) L 09/05/18 08:40 Hct 41.2 % (42.0-52.0) L 09/05/18 08:40 Plt Count 562 K/mm3 (142-424) H 09/05/18 08:40 BUN 62 mg/dL (7-18) H 09/05/18 14:40 Creatinine 3.87 mg/dL (0.70-1.30) H 09/05/18 14:40 Estimated Creat Clear 24 mL/min (0-300) 09/05/18 14:40 Was VTE Risk Assessment Performed: Yes VTE Score: 0 Clinical Trial Participant: No - Prophylaxis Location of Applied Device: Not Applicable
[2018-09-05 17:06] LABS: Anion Gap 18.6 mEq/L (5-15); Calcium 8.7 mg/dL (8.5-10.1); Potassium 3.6 mmoL/L (3.5-5.1)
[2018-09-05 20:57] LABS: Anion Gap 12.4 mEq/L (5-15); Calcium 8.1 mg/dL (8.5-10.1); Potassium 3.4 mmoL/L (3.5-5.1)
[2018-09-06 01:25] LABS: Anion Gap 16.1 mEq/L (5-15); Blood Urea Nitrogen 52 mg/dL (7-18); Calcium 8.2 mg/dL (8.5-10.1); Carbon Dioxide 21 mmol/L (21.0-32.0); Chloride 105 mmol/L (98-107); Glucose 327 mg/dL (74-106); Potassium 4.1 mmoL/L (3.5-5.1); Sodium 138 mmol/L (136-145)
[2018-09-06 01:33] LABS: Acetone, Serum (Rapid) None Detected (None Detect)
--- NOTE | 2018-09-06 08:45 | Discharge Summary ---
General - General Admission date:: 09/05/18 Discharge date: 09/06/18 HPI HPI: this wm who has known iddm who presented to ed this am by ems - he felt dizzyness FOUND IN CHAIR NOT RESPONDING VERY WELL THIS MORNING. HYPERGLYCEMIC READING NOTED BY EMS: GAVE HIM 24 UNITS OF INSULIN AT 645 THIS MORNING AND 12 UNITS OF INSULIN PRIOR TO LEAVING HOUSE WITH EMS. NO CHANGE IN STATUS. WOKE UP ENOUGH TO TRANSFER HIMSELF TO [facility] - History of Present Illness HPI narrative: Poor historian, altered mental status. Brought in by ambulance with report of decreased responsiveness, elevated blood sugar. Known to be a type I diabetic with recurrent diabetic ketoacidosis and recurrent pancreatitis suspected to be from hyperlipidemia. Patient states that he feels "drowsy". Does not voice any other complaints. pt admitted for ivf and insulin and follow labs - he has had elevated lft and lipase in past Hospital Course Hospital Course: iv insulin, vitals sign monitoring, IV fluids, monitoring of labs Serum acetone negative,today patient states he is feeling fine and would like to go home. Patient is to follow-up in the office the first of the week. Objective Vital signs: Temp Pulse Resp BP Pulse Ox 98.0 F 83 17 109/55 L 99 09/06/18 07:52 09/06/18 04:00 09/06/18 04:00 09/06/18 04:00 09/06/18 04:00 - *Routine HEENT Exam Head: Present: normocephalic Eye: Present: PERRL - *Routine Neck Exam Present: supple, full ROM - *Routine Respiratory Exam Present: CTA bilaterally - *Routine Cardiovascular Exam Present: RRR - *Routine Abdominal Exam Present: soft, normoactive bowel sounds - *Routine Exam Comments: condom cath in place draining at bedside - *Routine Extremities Exam Present: full ROM - *Routine Skin Exam Present: intact - *Routine Neurological Exam Present: alert, oriented X3 - Routine Psychiatric Exam Present: normal affect, normal thought process Results Labs on day of discharge: Labs from last 24 hours 09/06/18 09/06/18 09/05/18 00:50 00:21 23:09 WBC RBC Hgb Hct MCV MCH MCHC RDW Plt Count MPV Neut % (Auto) Lymph % (Auto) [place] % (Auto) Eos % (Auto) Baso % (Auto) Neut # (Auto) Lymph # (Auto) [place] # (Auto) Eos # (Auto) Baso # (Auto) Specimen Source O2 % ABG pH ABG pCO2 ABG pO2 ABG HCO3 ABG Total CO2 ABG O2 Saturation ABG Base Excess [place] Test Sodium 138 Potassium 4.1 D Chloride 105 Carbon Dioxide 21 Anion Gap 16.1 H BUN 52 H Creatinine 2.86 H Estimated Creat Clear 33 Estimated GFR 25 L Est GFR ( Amer) 31 L Glucose 327 H D POC Glucose 306 H* 146 H Random Glucose Calcium 8.2 L Phosphorus Magnesium Total Bilirubin AST ALT Alkaline Phosphatase Troponin I Total Protein Albumin Globulin Albumin/Globulin Ratio Amylase Lipase Urine Opiates Screen Urine Methadone Screen Ur Barbituates Screen Ur Phencyclidine Scrn Ur Amphetamines Screen U Benzodiazepines Scrn Urine Cocaine Screen U Marijuana (THC) Screen Acetone Level None detected 09/05/18 09/05/18 09/05/18 21:53 20:44 20:44 WBC RBC Hgb Hct MCV MCH MCHC RDW Plt Count MPV Neut % (Auto) Lymph % (Auto) [place] % (Auto) Eos % (Auto) Baso % (Auto) Neut # (Auto) Lymph # (Auto) [place] # (Auto) Eos # (Auto) Baso # (Auto) Specimen Source O2 % ABG pH ABG pCO2 ABG pO2 ABG HCO3 ABG Total CO2 ABG O2 Saturation ABG Base Excess [place] Test Sodium 140 Potassium 3.4 L Chloride 106 Carbon Dioxide 25 D Anion Gap 12.4 BUN 55 H Creatinine 3.13 H Estimated Creat Clear 30 Estimated GFR 23 L Est GFR ( Amer) 28 L Glucose 152 H D POC Glucose 130 H Random Glucose Calcium 8.1 L Phosphorus Magnesium Total Bilirubin AST ALT Alkaline Phosphatase Troponin I Total Protein Albumin Globulin Albumin/Globulin Ratio Amylase Lipase Urine Opiates Screen Urine Methadone Screen Ur Barbituates Screen Ur Phencyclidine Scrn Ur Amphetamines Screen U Benzodiazepines Scrn Urine Cocaine Screen U Marijuana (THC) Screen Acetone Level None detected 09/05/18 09/05/18 09/05/18 20:35 18:25 16:40 WBC RBC Hgb Hct MCV MCH MCHC RDW Plt Count MPV Neut % (Auto) Lymph % (Auto) [place] % (Auto) Eos % (Auto) Baso % (Auto) Neut # (Auto) Lymph # (Auto) [place] # (Auto) Eos # (Auto) Baso # (Auto) Specimen Source O2 % ABG pH ABG pCO2 ABG pO2 ABG HCO3 ABG Total CO2 ABG O2 Saturation ABG Base Excess [place] Test Sodium 139 Potassium 3.6 Chloride 104 Carbon Dioxide 20 L Anion Gap 18.6 H BUN 62 H Creatinine 3.56 H Estimated Creat Clear 27 Estimated GFR 20 L Est GFR ( Amer) 24 L Glucose 253 H D POC Glucose 165 H 161 H Random Glucose Calcium 8.7 Phosphorus Magnesium Total Bilirubin AST ALT Alkaline Phosphatase Troponin I Total Protein Albumin Globulin Albumin/Globulin Ratio Amylase Lipase Urine Opiates Screen Urine Methadone Screen Ur Barbituates Screen Ur Phencyclidine Scrn Ur Amphetamines Screen U Benzodiazepines Scrn Urine Cocaine Screen U Marijuana (THC) Screen Acetone Level 09/05/18 09/05/18 09/05/18 16:23 14:40 13:51 WBC RBC Hgb Hct MCV MCH MCHC RDW Plt Count MPV Neut % (Auto) Lymph % (Auto) [place] % (Auto) Eos % (Auto) Baso % (Auto) Neut # (Auto) Lymph # (Auto) [place] # (Auto) Eos # (Auto) Baso # (Auto) Specimen Source O2 % ABG pH ABG pCO2 ABG pO2 ABG HCO3 ABG Total CO2 ABG O2 Saturation ABG Base Excess [place] Test Sodium 138 Potassium 3.8 D Chloride 101 Carbon Dioxide 18 L D Anion Gap 22.8 H BUN 62 H Creatinine 3.87 H Estimated Creat Clear 24 Estimated GFR 18 L* Est GFR ( Amer) 22 L Glucose 438 H* D POC Glucose 269 H 471 H* Random Glucose Calcium 8.6 Phosphorus Magnesium Total Bilirubin AST ALT Alkaline Phosphatase Troponin I Total Protein Albumin Globulin Albumin/Globulin Ratio Amylase Lipase Urine Opiates Screen Urine Methadone Screen Ur Barbituates Screen Ur Phencyclidine Scrn Ur Amphetamines Screen U Benzodiazepines Scrn Urine Cocaine Screen U Marijuana (THC) Screen Acetone Level 09/05/18 09/05/18 09/05/18 13:50 11:50 08:47 WBC RBC Hgb Hct MCV MCH MCHC RDW Plt Count MPV Neut % (Auto) Lymph % (Auto) [place] % (Auto) Eos % (Auto) Baso % (Auto) Neut # (Auto) Lymph # (Auto) [place] # (Auto) Eos # (Auto) Baso # (Auto) Specimen Source R radial O2 % Room air ABG pH 7.18 L* ABG pCO2 10.1 L ABG pO2 141.7 H ABG HCO3 3.6 L ABG Total CO2 4.0 L ABG O2 Saturation 98 ABG Base Excess -24.8 L [place] Test Acceptable Sodium Potassium Chloride Carbon Dioxide Anion Gap BUN Creatinine Estimated Creat Clear Estimated GFR Est GFR ( Amer) Glucose POC Glucose Random Glucose 738 H* D Calcium Phosphorus Magnesium Total Bilirubin AST ALT Alkaline Phosphatase Troponin I Total Protein Albumin Globulin Albumin/Globulin Ratio Amylase Lipase Urine Opiates Screen Negative Urine Methadone Screen Negative Ur Barbituates Screen Negative Ur Phencyclidine Scrn Negative Ur Amphetamines Screen Negative U Benzodiazepines Scrn Negative Urine Cocaine Screen Negative U Marijuana (THC) Screen Negative Acetone Level Moderate 09/05/18 09/05/18 09/05/18 08:40 08:40 08:40 WBC RBC Hgb Hct MCV MCH MCHC RDW Plt Count MPV Neut % (Auto) Lymph % (Auto) [place] % (Auto) Eos % (Auto) Baso % (Auto) Neut # (Auto) Lymph # (Auto) [place] # (Auto) Eos # (Auto) Baso # (Auto) Specimen Source O2 % ABG pH ABG pCO2 ABG pO2 ABG HCO3 ABG Total CO2 ABG O2 Saturation ABG Base Excess [place] Test Sodium 131 L Potassium 5.9 H Chloride 89 L Carbon Dioxide 6 L* Anion Gap 41.9 H BUN 75 H Creatinine 4.35 H Estimated Creat Clear 23 Estimated GFR 16 L* Est GFR ( Amer) 19 L* Glucose 1160 H* POC Glucose Random Glucose Cancelled Calcium 9.4 Phosphorus 8.9 H Magnesium 3.1 H Total Bilirubin 0.7 AST 185 H ALT 279 H Alkaline Phosphatase 1666 H Troponin I < 0.02 Total Protein 7.4 D Albumin 2.8 L Globulin 4.6 H Albumin/Globulin Ratio 0.6 L Amylase 93 Lipase 1841 H Urine Opiates Screen Urine Methadone Screen Ur Barbituates Screen Ur Phencyclidine Scrn Ur Amphetamines Screen U Benzodiazepines Scrn Urine Cocaine Screen U Marijuana (THC) Screen Acetone Level Small 09/05/18 09/05/18 08:40 08:31 WBC 12.6 H RBC 3.61 L Hgb 11.8 L Hct 41.2 L MCV 114.3 H MCH 32.6 H MCHC 28.6 L RDW 14.7 Plt Count 562 H MPV 8.9 Neut % (Auto) 83.5 H Lymph % (Auto) 12.3 [place] % (Auto) 3.1 Eos % (Auto) 0.3 Baso % (Auto) 0.8 Neut # (Auto) 10.5 H Lymph # (Auto) 1.6 [place] # (Auto) 0.4 Eos # (Auto) 0.0 Baso # (Auto) 0.1 Specimen Source O2 % ABG pH ABG pCO2 ABG pO2 ABG HCO3 ABG Total CO2 ABG O2 Saturation ABG Base Excess [place] Test Sodium Potassium Chloride Carbon Dioxide Anion Gap BUN Creatinine Estimated Creat Clear Estimated GFR Est GFR ( Amer) Glucose POC Glucose > 600 H* Random Glucose Calcium Phosphorus Magnesium Total Bilirubin AST ALT Alkaline Phosphatase Troponin I Total Protein Albumin Globulin Albumin/Globulin Ratio Amylase Lipase Urine Opiates Screen Urine Methadone Screen Ur Barbituates Screen Ur Phencyclidine Scrn Ur Amphetamines Screen U Benzodiazepines Scrn Urine Cocaine Screen U Marijuana (THC) Screen Acetone Level - Additional Comments Rounded with Dr. Katz all orders per [place] DS: Diagnosis - Discharge Diagnosis (1) Pancreatitis Status: Acute (2) Diabetic ketoacidosis Status: Acute (3) Abnormal liver function tests Status: Acute (4) Urinary bladder disorder Status: Chronic (5) Elevated serum creatinine Status: Chronic (6) Urinary retention Status: Chronic Problem details: acute on chronic Discharge Plan - Patient Discharge Instructions ACTIVITY: Continue current activity DIET: continue same diet - Follow up Plan Follow up with: Hola Tucker APRN [Advanced Practice Nurse] - Disposition: Home, Self-Correction Medications: Home Medications Medication Instructions Recorded Confirmed Type Gabapentin [Gabapentin 800mg Tab] 800 mg PO QID 12/19/17 09/05/18 History Insulin Aspart [Novolog] 0 unit SQ DAILY 12/19/17 09/05/18 History insulin glargine (U- 100) 100 35 unit SQ HS ml 08/07/18 09/05/18 History unit/mL subcutaneous solution Carvedilol [Coreg 3.125mg Tablet] 3.125 mg PO BID 08/10/18 09/05/18 History Lisinopril [Lisinopril 5mg Tablet] 5 mg PO DAILY 09/05/18 09/05/18 History Phenazopyridine HCl [Pyridium 200 mg PO TID 09/05/18 09/05/18 History 200mg Tablet] Sulfamethoxazole/Trimethoprim 1 each PO BID 09/05/18 09/05/18 History [Bactrim DS tablet] Prescriptions/Medication Reconciliation: No Action insulin glargine (U- 100) 100 unit/mL subcutaneous solution 35 unit SQ HS ml Gabapentin [Gabapentin 800mg Tab] 800 mg PO QID Carvedilol [Coreg 3.125mg Tablet] 3.125 mg PO BID Lisinopril [Lisinopril 5mg Tablet] 5 mg PO DAILY Sulfamethoxazole/Trimethoprim [Bactrim DS tablet] 1 each PO BID Phenazopyridine HCl [Pyridium 200mg Tablet] 200 mg PO TID Insulin Aspart [Novolog] 0 unit SQ DAILY
== END 2018-09-06 10:36 | disposition home or self-care (01) ==
LOC: ER 09:00 → 2ND 09:36
PROVIDERS: ADMIT Emergency Medicine; ATTEND Emergency Medicine

== ENCOUNTER 2018-09-16 19:13 | Inpatient (IN) ==
--- NOTE | 2018-09-16 20:12 | Emergency Department Note ---
ED Disposition Clinical Impression: Hyperglycemia, Dehydration Diabetic ketoacidosis Qualifiers: Diabetes mellitus type: type 1 Diabetes mellitus complication detail: without coma Qualified Code(s): E10.10 - Type 1 diabetes mellitus with ketoacidosis without coma Change in mental status Qualifiers: Altered mental status type: delirium Qualified Code(s): R41.0 - Disorientation, unspecified Disposition: Admitted As Inpatient Condition on Discharge: Fair Instructions: DI for Hyperglycemia -- Adult, Insulin Additional Instructions: DI for DKA Referrals: Provider,Referral, MD [Primary Care Provider] - - Critical Care Critical Care Time: Yes Attestation: On 09/16/18, the high probability of a clinically significant, sudden or life threatening deterioration of the following system(s) required my full and direct attention, intervention and personal management. The time I documented below is in addition to time spent performing reported procedures but includes the f ollowing listed in this critical care notation. Total Critical Care Time: 60 Vital system(s) involved:: Metabolic Failure My critical care processes included: Assessment & monitoring of V/S, Initial and Re-exams, Data Review/Interpretation, Coordinating Care, Medication Orders and management, Documentation Medical Decision Making - Medical Records Medical records reviewed: Yes: I reviewed the patient's medical records. - Michael Inquiry Pt receiving controlled substance: No Michael was queried for this patient: No Vital Signs: 09/16/18 19:18 09/16/18 19:40 09/16/18 20:13 Temperature 98.0 F Temperature Source Oral Pulse Rate [Right Brachial] 141 H 124 H 132 H Respiratory Rate 20 20 28 H Blood Pressure [Right Arm] 205/108 H 165/90 H 171/114 H Blood Pressure Mean [Right Arm] 140 115 133 Blood Pressure Source [Right Arm] Automatic Cuff Manual Cuff/ Auscultation Automatic Cuff Blood Pressure Position [Right Arm] Sitting Sitting Supine 02 Sat by Pulse Oximetry 100 100 100 Oxygen Delivery Method Room Air Room Air 09/16/18 21:27 Temperature Temperature Source Pulse Rate [Right Brachial] 112 H Respiratory Rate 22 Blood Pressure [Right Arm] 178/114 H Blood Pressure Mean [Right Arm] 135 Blood Pressure Source [Right Arm] Automatic Cuff Blood Pressure Position [Right Arm] Supine 02 Sat by Pulse Oximetry 100 Oxygen Delivery Method - Lab Data Lab results reviewed: Yes: I reviewed the patient's lab results. Lab Results 09/16/18 20:35: WBC 13.2 H, RBC 3.84 L, Hgb 12.3 L, Hct 44.0, MCV 114.6 H, MCH 31.9 H, MCHC 27.9 L, RDW 14.8, Plt Count 416, MPV 9.0, Neut % (Auto) 86.1 H, Lymph % (Auto) 8.5 L, Webb % (Auto) 4.7, Eos % (Auto) 0.2, Baso % (Auto) 0.4, Neut # (Auto) 11.4 H, Lymph # (Auto) 1.1, Webb # (Auto) 0.6, Eos # (Auto) 0.0, Baso # (Auto) 0.1 09/16/18 20:35: Sodium 135 L, Potassium 5.4 H, Chloride 96 L, Carbon Dioxide 6 L*, Anion Gap 38.4 H, BUN 46 H, Creatinine 3.06 H, Estimated Creat Clear 32, Estimated GFR 23 L, Est GFR ( Amer) 28 L, Glucose 948 H*, Calcium 8.8, Total Bilirubin 0.5, AST 209 H, ALT 230 H, Alkaline Phosphatase 1321 H, Total Protein 6.3 L, Albumin 2.6 L, Globulin 3.7 H, Albumin/Globulin Ratio 0.7 L 09/16/18 20:35: Acetone Level Moderate 09/16/18 21:03: VBG pH 7.16 L, VBG pCO2 11.8 L, VBG pO2 215.3 H, VBG HCO3 4.1 L, VBG Total CO2 4.5 L, VBG O2 Saturation 98.8 H, VBG Base Excess -24.6 L Result diagrams: 09/16/18 20:35 09/16/18 20:35 Orders (Tests/Meds): ED MEDICATIONS Discontinued Medications Generic Name Dose Route Start Last Admin Trade Name Freq PRN Reason Stop Dose Admin Sodium Chloride 1,000 mls @ 999 mls/hr 09/16/18 19:30 09/16/18 19:30 Sod Chlor 0.9% 1000ml Bag IV 09/16/18 20:30 999 mls/hr .Q1H1M CASTILLO Administration ORDERS Category Date Time Status Complete Blood Count Auto Diff Stat Lab 09/16/18 20:35 Results Drug Screen,Urine Stat Lab 09/16/18 20:07 Ordered Lactic Acid Stat Lab 09/16/18 20:07 Ordered Urinalysis and Microscopic Stat Lab 09/16/18 19:28 Ordered Blood Culture Stat Micro 09/16/18 20:07 Ordered Venous Blood Gas Stat RT 09/16/18 19:36 Ordered ECG Request by /Nse Stat Y 09/16/18 19:28 Ordered General Adult HPI - General Chief complaint: Hyper/Hypoglycemia Stated complaint: High Sugar Time Seen by Provider: 09/16/18 20:10 Mode of Arrival: EMS Source of Information: Significant Other Limitations: No Limitations Description of Symptoms (Recalled from ER Triage Doc. by RN): Pt was found unresponsive by a girlfiend, and called EMS. Family gave him 20 units inslin before EMS got to the house. Pt has a hx of DKA. - History of Present Illness Onset (ago): unknown Severity: moderate Relieving factors: other (insulin,fluid) Exacerbating factors: none Associated symptoms: cough (x 1 week) Treatments prior to arrival: other (insulin) - Related Data Home Medications Medication Instructions Recorded Confirmed Gabapentin [Gabapentin 800mg Tab] 800 mg PO QID 12/19/17 09/05/18 Insulin Aspart [Novolog] 0 unit SQ DAILY 12/19/17 09/05/18 insulin glargine (U- 100) 100 35 unit SQ HS ml 08/07/18 09/05/18 unit/mL subcutaneous solution Carvedilol [Coreg 3.125mg Tablet] 3.125 mg PO BID 08/10/18 09/05/18 Lisinopril [Lisinopril 5mg Tablet] 5 mg PO DAILY 09/05/18 09/05/18 Phenazopyridine HCl [Pyridium 200 mg PO TID 09/05/18 09/05/18 200mg Tablet] Sulfamethoxazole/Trimethoprim 1 each PO BID 09/05/18 09/05/18 [Bactrim DS tablet] Previous Rx's Medication Instructions Recorded Albuterol Sulfate [Proair Hfa 2 puffs IH Q4HP PRN #1 inh 09/15/18 90mcg/puff Inh] Benzonatate [Tessalon Perle 100mg 200 mg PO TID PRN 10 Days #30 cap 09/15/18 Cap] levoFLOXacin [Levaquin 500mg 500 mg PO DAILY #10 tab 09/15/18 tab] predniSONE [Prednisone 20mg 20 mg PO BID 5 Days #10 tab 09/15/18 Tab] Allergies Allergy/AdvReac Type Severity Reaction Status Date / Time Penicillins [PENICILLINS] Allergy Severe I-HIVES Verified 08/19/18 00:44 [facility] History I have reviewed the patient's past medical history: Yes Medical History: Reports:: Diabetes Mellitus Type 1, Hyperlipidemia, Hyperte nsion, Renal Insufficiency Denies:: Cancer, Diabetes Mellitus Type 2, MRSA Other Medical History: Reports: Other Comment: high heart rate Laterality Cases: Bilateral: Tonsillectomy Other Surgeries: Yes: No Previous Surgery, Other (tonsillectomy) Amputation: No Fractures: No - Social History Smoking Status: Never smoker Tobacco Type: smokeless tobacco # Packs/Day (cigarettes): 1 Alcohol Intake: never Alcohol Intake Frequency:: a few times a month Substance Use Type: denies use Occupational Status: employed Housing: apartment Household Members: spouse, family, children - Psychiatric History Expresses thoughts of harming self/others: None Suicide Plan Description: No Plan Family Hx:: Cancer, Diabetes, Hyperlipidemia, Hypertension, Stroke ROS Obtained: Yes All systems reviewed & no additional complaints - Constitutional Constitutional: Reports system reviewed and no additional complaints, except as docu, Reports lethargy, Reports malaise, Reports weakness - Cardiovascular Cardiovascular: Reports system reviewed and no additional complaints, except as docu, Denies chest pain, Denies dyspnea, Denies edema, Denies palpitations, Denies rapid heart rate, Denies slow heart rate - Respiratory Respiratory: Yes system reviewed and no additional complaints, except as docu, Yes cough, Yes non-productive cough, No dyspnea - Gastrointestinal Gastrointestingal: Reports: system reviewed and no additional complaints, except as docu. Denies: abdominal pain, diarrhea, nausea, vomiting - Genitourinary Male Genitourinary: Reports system reviewed and no additional complaints, except as docu, Denies hematuria, Denies urinary frequency, Denies urinary hesitancy, Denies urinary urgency - Musculoskeletal Musculoskeletal: Reports system reviewed and no additional complaints, except as docu - Neurologic Neurologic: Reports system reviewed and no additional complaints, except as docu, Denies dizziness, Denies headache(s), Reports syncope Physical Exam - General General appearance: alert, in no apparent distress, lethargic - Head Head exam: atraumatic, normocephalic, normal inspection - Eye Eye exam: Present: normal appearance, PERRL, EOMI - ENT ENT exam: Present: normal exam, normal oropharynx, mucous membranes moist, normal external ear exam - Neck Neck exam: Present: normal inspection, full ROM, trachea midline. Absent: meningismus, lymphadenopathy - Chest Chest inspection: Present: normal inspection, symmetric chest wall rise. Absent: tenderness - Respiratory Respiratory exam: Present: normal lung sounds bilaterally. Absent: respiratory distress - Cardiovascular Cardiovascular exam: Present: normal rhythm, tachycardia, normal heart sounds. Absent: JVD - Abdominal Exam Abdominal exam: Present: soft, normal bowel sounds. Absent: distention, tenderness, guarding - Extremities Exam Extremities exam: Present: normal inspection, full ROM, normal capillary refill. Absent: calf tenderness - Back Exam Back exam: Present: normal inspection. Absent: tenderness - Neurological Exam Neurological exam: Present: alert, CN II-XII intact, reflexes normal, other (disoriented x 2) - Psychiatric Psychiatric exam: Present: normal affect - Skin Skin exam: Present: warm, dry, intact, normal color
[2018-09-16 20:57] LABS: Basophils # 0.1 K/mm3 (0-0.2); Basophils % 0.4 % (0.1-2.0); Eosinophils % 0.2 % (0.1-12.0); Hemoglobin 12.3 g/dL (14.1-18.0); Lymphocytes # 1.1 K/mm3 (0.7-4.5); Lymphocytes % 8.5 % (10-50); Mean Corpuscular HGB Conc 27.9 g/dL (31.8-35.4); Mean Corpuscular Hemoglobin 31.9 pg (27.0-31.2); Mean Corpuscular Volume 114.6 fl (80-94); Monocytes # 0.6 K/mm3 (0.1-1.0); Monocytes % 4.7 % (1.7-9.3); Neutrophils # 11.4 K/mm3 (1.8-7.8); Neutrophils % 86.1 % (37.0-80.0); Platelet Count 416 K/mm3 (142-424); Red Blood Count 3.84 M/mm3 (4.60-6.20); Red Cell Distribution Width 14.8 % (11.5-17.5); White Blood Count 13.2 K/mm3 (4.8-10.8)
[2018-09-16 21:04] LABS: VBG Base Excess -24.6 mmol/L (-2.4-2.3); VBG HCO3 4.1 mmol/L (23-30); VBG Oxygen Saturation 98.8 % (50-70); VBG PO2 215.3 mmol/L (28-40); VBG Total CO2 4.5 mmol/L (23-27)
[2018-09-16 21:06] LABS: VBG PCO2 11.8 mmol/L (35-51); VBG PH 7.16 mmol/L (7.31-7.41)
[2018-09-16 21:13] LABS: Albumin Level 2.6 gm/dL (3.4-5.0); Albumin/Globulin Ratio 0.7 (1.1-1.8); Anion Gap 38.4 mEq/L (5-15); Bilirubin,Total 0.5 mg/dL (0.2-1.0); Calcium 8.8 mg/dL (8.5-10.1); Globulin 3.7 gm/dl (1.3-3.2); Potassium 5.4 mmoL/L (3.5-5.1); Total Protein,Serum 6.3 gm/dL (6.4-8.2)
[2018-09-16 22:04] LABS: Microscopic, Urine URINE MICROSCOPIC (MICROSCOPIC)
[2018-09-16 22:17] LABS: Appearance,Urine CLEAR (Clear); Bilirubin,Urine Negative (Negative); Blood, Urine Negative (Negative); Color,Urine STRAW (Yellow); Glucose,Urine (UA) Negative (Negative); Ketones,Urine 3+ (Negative); Leukocyte Esterase,Urine Negative (Negative); PH,Urine 5.5 (5.0-8.5); Protein,Urine 1+ (Negative); Specific Gravity, Urine 1.015 (1.005-1.030); Urobilinogen,Urine 0.2 EU/dl (0.2)
[2018-09-16 22:29] LABS: Lymphocytes % 10 % (10-50); Macrocytosis 2+; Monocytes % 5 % (2-9); Neutrophils % 85 % (42-76); Total Cells Counted 100
[2018-09-16 22:31] LABS: Anisocytosis 1+
[2018-09-16 22:54] LABS: Amphetamine/Metha Screen,Urine Negative ng/mL (<1000); Barbiturates Screen,Urine Negative ng/mL (<200); Benzodiazepines Screen,Urine Negative ng/mL (<200); Cannabinoid Screen,Urine Negative ng/mL (<50); Cocaine Screen,Urine Negative ng/mL (<300); Methadone Screen,Urine Negative ng/mL (<300); Opiate Screen,Urine Negative ng/mL (<300); Phencyclidine Screen,Urine Negative ng/mL (<25)
[2018-09-16 22:59] LABS: Bacteria,Urine 2+ /lpf; Yeast,Urine 2+ /lpf
[2018-09-17 06:12] LABS: Basophils % 0.3 % (0.1-2.0); Eosinophils # 0.1 K/mm3 (0.0-0.4); Eosinophils % 0.4 % (0.1-12.0); Hematocrit 30.9 % (42.0-52.0); Lymphocytes # 2.8 K/mm3 (0.7-4.5); Lymphocytes % 23.8 % (10-50); Mean Corpuscular HGB Conc 32.4 g/dL (31.8-35.4); Mean Corpuscular Hemoglobin 32.1 pg (27.0-31.2); Mean Corpuscular Volume 99.1 fl (80-94); Mean Platelet Volume 7.6 fl (7.4-10.4); Monocytes # 0.7 K/mm3 (0.1-1.0); Monocytes % 5.8 % (1.7-9.3); Neutrophils # 8.3 K/mm3 (1.8-7.8); Neutrophils % 69.8 % (37.0-80.0); Platelet Count 348 K/mm3 (142-424); Red Blood Count 3.12 M/mm3 (4.60-6.20); Red Cell Distribution Width 15.2 % (11.5-17.5); White Blood Count 11.9 K/mm3 (4.8-10.8)
[2018-09-17 06:30] LABS: Albumin/Globulin Ratio 0.6 (1.1-1.8); Anion Gap 15.6 mEq/L (5-15); Bilirubin,Total 0.3 mg/dL (0.2-1.0); Chol/HDL Ratio 1.8 (1-3.5); Globulin 3.4 gm/dl (1.3-3.2); Phosphorous 2.9 mg/dL (2.4-4.9); Potassium 3.6 mmoL/L (3.5-5.1); Total Protein,Serum 5.4 gm/dL (6.4-8.2)
--- NOTE | 2018-09-17 07:58 | Pharmacy Consult Notes ---
[facility] Pharmacy VTE Monitoring - Patient Demographics Admission date: 09/16/18 Report Date: 09/17/18 Time: 07:58 Allergies/Adverse Reactions: Patient Allergies Penicillins [PENICILLINS] Allergy (Severe, Verified 09/16/18 23:47) I-HIVES Height: 1.68 m Weight: 68.039 kg Patient Problems: Current Active Problems Diabetic ketoacidosis (Acute) Change in mental status (Acute) Dehydration (Acute) Hyperglycemia (Acute) - VTE Risk Labs: VTE Related Lab Results Hgb 10.0 g/dL (14.1-18.0) L D 09/17/18 05:40 Hct 30.9 % (42.0-52.0) L 09/17/18 05:40 Plt Count 348 K/mm3 (142-424) 09/17/18 05:40 BUN 33 mg/dL (7-18) H D 09/17/18 05:40 Creatinine 2.14 mg/dL (0.70-1.30) H D 09/17/18 05:40 Estimated Creat Clear 46 mL/min (50-200) 09/17/18 05:40 VTE Score: 1 VTE Risk Level: Very Low Risk - Prophylaxis VTE Prophylaxis Ordered?: Yes Types of VTE Prophylaxis: TEDS Knee High Location of Applied Device: Bilateral Lower Extremeties - VTE Diagnosis Confirmed Treatment or plan recommended: Continue Current Treatment
--- NOTE | 2018-09-17 14:05 | H&P/Discharge Summary ---
<Kalani Christiansen - Last Filed: 09/17/18 14:01> General - General Admission date:: 09/16/18 Discharge date: 09/17/18 *Admission Date: 09/17/18 *Chief complaint: DKA *History of present illness: Mr. Huber is a 37-year-old male with a history of type 1 diabetes mellitus and hypertension who was brought to [facility] emergency room via ambulance after being found unresponsive at home. The family did give him 20 units of insulin while at home. In the emergency room he was found to be in DKA and was started on an insulin drip, given IV fluid bolus, and then with continued IV fluids at 200 cc/h.. He was then admitted for ongoing care. A.m. after admission patient does not remember much of the last 2 days. He does not really remember much of the last week. His answers are vague. Eventually did state that he takes 40 units of insulin daily and is on sliding scale as well. He states he does take his medicines daily. He does not recall if he has been eating, drinking, voiding, R been able to walk. He does remember that he has had a cough for about the last 3 weeks. This a.m. at time of exam patient denies chest pain, shortness of breath, nausea, vomiting, and diarrhea. Nursing staff has weaned patient off of the insulin drips with lower blood sugars. Acetone is negative this a.m. [facility] History Medical History: Reports:: Diabetes Mellitus Type 1, Hyperlipidemia, Hypertension, Renal Insufficiency Denies:: Cancer, Diabetes Mellitus Type 2, MRSA Other Medical History: Reports: Other Laterality Cases: Bilateral: Tonsillectomy Other Surgeries: Yes: No Previous Surgery, Other (tonsillectomy) Amputation: No Fractures: No - *Social History Educational Level: Attended High School Smoking Status: Never smoker Tobacco Type: smokeless tobacco # Packs/Day (cigarettes): 1 Alcohol Intake: never Alcohol Intake Frequency:: a few times a month Substance Use Type: denies use Occupational Status: employed Housing: apartment Household Members: spouse, family, children - Psychiatric History Expresses thoughts of harming self/others: None Suicide Plan Description: No Plan *Family Hx:: Cancer, Diabetes, Hyperlipidemia, Hypertension, Stroke Review of Systems - Constitutional Reports headache(s), Denies fever(s) - ENT Reports headache(s), Denies dizziness, Denies sore throat - *Cardiovascular Denies chest pain - *Respiratory Reports cough (Non-productive), Denies chest congestion, Denies shortness of breath - *Gastrointestinal Denies abdominal pain, Denies change in bowel habits, Denies constipation - *Genitourinary Reports urinary incontinence - *Musculoskeletal Denies joint pain - *Neurologic Reports fainting, Reports weakness, Denies dizziness, Denies headache(s) Exam Vital signs and Labs for Last 24 Hours: Temp Pulse Resp BP Pulse Ox 98.2 F 85 17 197/102 H 100 09/17/18 08:22 09/17/18 08:00 09/17/18 08:00 09/17/18 08:00 09/17/18 08:00 Laboratory Results - last 24 hr 09/16/18 19:18: POC Glucose > 600 H* 09/16/18 20:35: WBC 13.2 H, RBC 3.84 L, Hgb 12.3 L, Hct 44.0, MCV 114.6 H, MCH 31.9 H, MCHC 27.9 L, RDW 14.8, Plt Count 416, MPV 9.0, Neut % (Auto) 86.1 H, Lymph % (Auto) 8.5 L, [place] % (Auto) 4.7, Eos % (Auto) 0.2, Baso % (Auto) 0.4, Neut # (Auto) 11.4 H, Lymph # (Auto) 1.1, [place] # (Auto) 0.6, Eos # (Auto) 0.0, Baso # (Auto) 0.1, Total Counted 100, Neutrophils % (Manual) 85 H, Lymphocytes % (Manual) 10, Monocytes % (Manual) 5, Platelet Estimate Normal, Anisocytosis 1+, Macrocytosis 2+ 09/16/18 20:35: Sodium 135 L, Potassium 5.4 H, Chloride 96 L, Carbon Dioxide 6 L*, Anion Gap 38.4 H, BUN 46 H, Creatinine 3.06 H, Estimated Creat Clear 32, Estimated GFR 23 L, Est GFR ( Amer) 28 L, Glucose 948 H*, Calcium 8.8, Total Bilirubin 0.5, AST 209 H, ALT 230 H, Alkaline Phosphatase 1321 H, Total Protein 6.3 L, Albumin 2.6 L, Globulin 3.7 H, Albumin/Globulin Ratio 0.7 L 09/16/18 20:35: Acetone Level Moderate 09/16/18 21:03: VBG pH 7.16 L, VBG pCO2 11.8 L, VBG pO2 215.3 H, VBG HCO3 4.1 L, VBG Total CO2 4.5 L, VBG O2 Saturation 98.8 H, VBG Base Excess -24.6 L 09/16/18 21:55: Urine Color Straw, Urine Appearance Clear, Urine pH 5.5, Ur Specific [place] 1.015, Urine Protein 1+, Urine Glucose (UA) Negative, Urine Ketones 3+, Urine Blood Negative, Urine Nitrate Negative, Urine Bilirubin Negative, Urine Urobilinogen 0.2, Ur Leukocyte Esterase Negative, Urine RBC No ne, Urine WBC 3-5, Ur Squamous Epith Cells None, Urine Bacteria 2+, Urine Yeast 2+ 09/16/18 21:55: Urine Opiates Screen Negative, Urine Methadone Screen Negative, Ur Barbituates Screen Negative, Ur Phencyclidine Scrn Negative, Ur Amphetamines Screen Negative, U Benzodiazepines Scrn Negative, Urine Cocaine Screen Negative, U Marijuana (THC) Screen Negative 09/16/18 22:56: POC Glucose 545 H* 09/16/18 23:27: POC Glucose 498 H* 09/17/18 02:10: POC Glucose 179 H 09/17/18 03:20: POC Glucose 127 H 09/17/18 05:40: Lactate 3.9 H 09/17/18 05:40: Acetone Level None detected 09/17/18 05:40: WBC 11.9 H, RBC 3.12 L, Hgb 10.0 L D, Hct 30.9 L, MCV 99.1 H, MCH 32.1 H, MCHC 32.4, RDW 15.2, Plt Count 348, MPV 7.6, Neut % (Auto) 69.8, Lymph % (Auto) 23.8, [place] % (Auto) 5.8, Eos % (Auto) 0.4, Baso % (Auto) 0.3, Neut # (Auto) 8.3 H, Lymph # (Auto) 2.8, [place] # (Auto) 0.7, Eos # (Auto) 0.1, Baso # (Auto) 0.0 09/17/18 05:40: Sodium 144, Potassium 3.6 D, Chloride 108 H, Carbon Dioxide 24 D, Anion Gap 15.6 H, BUN 33 H D, Creatinine 2.14 H D, Estimated Creat Clear 46, Estimated GFR 35 L, Est GFR ( Amer) 43 L D, Glucose 113 H D, Calcium 8.0 L, Phosphorus 2.9, Magnesium 1.8, Total Bilirubin 0.3, AST 173 H, ALT 178 H, Alkaline Phosphatase 1053 H, Total Protein 5.4 L, Albumin 2.0 L D, Globulin 3.4 H, Albumin/Globulin Ratio 0.6 L, Triglycerides 103, Cholesterol 170, LDL Cholesterol 57, VLDL Cholesterol 21, HDL Cholesterol 92 H, Cholesterol/HDL Ratio 1.8 09/17/18 05:51: POC Glucose 100 09/17/18 06:52: POC Glucose 124 H 09/17/18 08:16: POC Glucose 116 H 09/17/18 10:25: Lactate 4.8 H 09/17/18 10:49: POC Glucose 101 I & O for Last 24 hours: Intake & Output 09/15/18 09/16/18 09/17/18 09/18/18 11:59 11:59 11:59 11:59 Intake Total 1874 / 1874 240 / 240 Output Total 1950 / 1950 Balance -76 / -76 240 / 240 Weight 150 lb Microbiology Reports for the Last 24 Hours: Microbiology 09/16/18 21:55 Urine,Catheterized Urine Culture - Preliminary - Constitutional no acute distress - *Routine HEENT Exam Head: Present: normocephalic, atraumatic Eye: Present: PERRL. Absent: conjunctival icterus, scleral injection ENT: Present: mucous membranes moist, oropharynx clear - *Routine Neck Exam Present: supple, full ROM. Absent: carotid bruit, lymphadenopathy, thyromegaly - *Routine Respiratory Exam Present: CTA bilaterally (Anteriorly and posteriorly) - *Routine Cardiovascular Exam Present: RRR - *Routine Abdominal Exam Present: soft, normoactive bowel sounds. Absent: tenderness, distended, guarding - *Routine Exam Comments: Patient has a Wise catheter to bedside drainage with clear urine drainage. - *Routine Neurological Exam Present: oriented X3 Hospital Course Hospital Course: After admission blood sugars gradually decreased and insulin drip was discontinued early a.m. Patient became alert and oriented and was hungry. He was able to eat breakfast. Lactic acid was reported at 4.8 and this was felt to be due to DKA. Creatinine removed with IV fluids. Repeat acetone was negative this a.m. Patient was felt to have a bronchitis due to his ongoing dry cough. Otherwise he was felt to be stable and will be discharged home and placed on an antibiotic for bronchitis. He will follow-up with his PCP see discharge orders. Results Labs on day of discharge: Labs from last 24 hours 09/17/18 09/17/18 09/17/18 10:49 10:25 08:16 WBC RBC Hgb Hct MCV MCH MCHC RDW Plt Count MPV Neut % (Auto) Lymph % (Auto) [place] % (Auto) Eos % (Auto) Baso % (Auto) Neut # (Auto) Lymph # (Auto) [place] # (Auto) Eos # (Auto) Baso # (Auto) Total Counted Neutrophils % (Manual) Lymphocytes % (Manual) Monocytes % (Manual) Platelet Estimate Anisocytosis Macrocytosis VBG pH VBG pCO2 VBG pO2 VBG HCO3 VBG Total CO2 VBG O2 Saturation VBG Base Excess Sodium Potassium Chloride Carbon Dioxide Anion Gap BUN Creatinine Estimated Creat Clear Estimated GFR Est GFR ( Amer) Glucose POC Glucose 101 116 H Lactate 4.8 H Calcium Phosphorus Magnesium Total Bilirubin AST ALT Alkaline Phosphatase Total Protein Albumin Globulin Albumin/Globulin Ratio Triglycerides Cholesterol LDL Cholesterol VLDL Cholesterol HDL Cholesterol Cholesterol/HDL Ratio Urine Color Urine Appearance Urine pH Ur Specific [place] Urine Protein Urine Glucose (UA) Urine Ketones Urine Blood Urine Nitrate Urine Bilirubin Urine Urobilinogen Ur Leukocyte Esterase Urine RBC Urine WBC Ur Squamous Epith Cells Urine Bacteria Urine Yeast Urine Opiates Screen Urine Methadone Screen Ur Barbituates Screen Ur Phencyclidine Scrn Ur Amphetamines Screen U Benzodiazepines Scrn Urine Cocaine Screen U Marijuana (THC) Screen Acetone Level 09/17/18 09/17/18 09/17/18 06:52 05:51 05:40 WBC RBC Hgb Hct MCV MCH MCHC RDW Plt Count MPV Neut % (Auto) Lymph % (Auto) [place] % (Auto) Eos % (Auto) Baso % (Auto) Neut # (Auto) Lymph # (Auto) [place] # (Auto) Eos # (Auto) Baso # (Auto) Total Counted Neutrophils % (Manual) Lymphocytes % (Manual) Monocytes % (Manual) Platelet Estimate Anisocytosis Macrocytosis VBG pH VBG pCO2 VBG pO2 VBG HCO3 VBG Total CO2 VBG O2 Saturation VBG Base Excess Sodium 144 Potassium 3.6 D Chloride 108 H Carbon Dioxide 24 D Anion Gap 15.6 H BUN 33 H D Creatinine 2.14 H D Estimated Creat Clear 46 Estimated GFR 35 L Est GFR ( Amer) 43 L D Glucose 113 H D POC Glucose 124 H 100 Lactate Calcium 8.0 L Phosphorus 2.9 Magnesium 1.8 Total Bilirubin 0.3 AST 173 H ALT 178 H Alkaline Phosphatase 1053 H Total Protein 5.4 L Albumin 2.0 L D Globulin 3.4 H Albumin/Globulin Ratio 0.6 L Triglycerides 103 Cholesterol 170 LDL Cholesterol 57 VLDL Cholesterol 21 HDL Cholesterol 92 H Cholesterol/HDL Ratio 1.8 Urine Color Urine Appearance Urine pH Ur Specific Cle[place] Urine Protein Urine Glucose (UA) Urine Ketones Urine Blood Urine Nitrate Urine Bilirubin Urine Urobilinogen Ur Leukocyte Esterase Urine RBC Urine WBC Ur Squamous Epith Cells Urine Bacteria Urine Yeast Urine Opiates Screen Urine Methadone Screen Ur Barbituates Screen Ur Phencyclidine Scrn Ur Amphetamines Screen U Benzodiazepines Scrn Urine Cocaine Screen U Marijuana (THC) Screen Acetone Level 09/17/18 09/17/18 09/17/18 05:40 05:40 05:40 WBC 11.9 H RBC 3.12 L Hgb 10.0 L D Hct 30.9 L MCV 99.1 H MCH 32.1 H MCHC 32.4 RDW 15.2 Plt Count 348 MPV 7.6 Neut % (Auto) 69.8 Lymph % (Auto) 23.8 [place] % (Auto) 5.8 Eos % (Auto) 0.4 Baso % (Auto) 0.3 Neut # (Auto) 8.3 H Lymph # (Auto) 2.8 [place] # (Auto) 0.7 Eos # (Auto) 0.1 Baso # (Auto) 0.0 Total Counted Neutrophils % (Manual) Lymphocytes % (Manual) Monocytes % (Manual) Platelet Estimate Anisocytosis Macrocytosis VBG pH VBG pCO2 VBG pO2 VBG HCO3 VBG Total CO2 VBG O2 Saturation VBG Base Excess Sodium Potassium Chloride Carbon Dioxide Anion Gap BUN Creatinine Estimated Creat Clear Estimated GFR Est GFR ( Amer) Glucose POC Glucose Lactate 3.9 H Calcium Phosphorus Magnesium Total Bilirubin AST ALT Alkaline Phosphatase Total Protein Albumin Globulin Albumin/Globulin Ratio Triglycerides Cholesterol LDL Cholesterol VLDL Cholesterol HDL Cholesterol Cholesterol/HDL Ratio Urine Color Urine Appearance Urine pH Ur Specific [place] Urine Protein Urine Glucose (UA) Urine Ketones Urine Blood Urine Nitrate Urine Bilirubin Urine Urobilinogen Ur Leukocyte Esterase Urine RBC Urine WBC Ur Squamous Epith Cells Urine Bacteria Urine Yeast Urine Opiates Screen Urine Methadone Screen Ur Barbituates Screen Ur Phencyclidine Scrn Ur Amphetamines Screen U Benzodiazepines Scrn Urine Cocaine Screen U Marijuana (THC) Screen Acetone Level None detected 09/17/18 09/17/18 09/16/18 03:20 02:10 23:27 WBC RBC Hgb Hct MCV MCH MCHC RDW Plt Count MPV Neut % (Auto) Lymph % (Auto) [place] % (Auto) Eos % (Auto) Baso % (Auto) Neut # (Auto) Lymph # (Auto) [place] # (Auto) Eos # (Auto) Baso # (Auto) Total Counted Neutrophils % (Manual) Lymphocytes % (Manual) Monocytes % (Manual) Platelet Estimate Anisocytosis Macrocytosis VBG pH VBG pCO2 VBG pO2 VBG HCO3 VBG Total CO2 VBG O2 Saturation VBG Base Excess Sodium Potassium Chloride Carbon Dioxide Anion Gap BUN Creatinine Estimated Creat Clear Estimated GFR Est GFR ( Amer) Glucose POC Glucose 127 H 179 H 498 H* Lactate Calcium Phosphorus Magnesium Total Bilirubin AST ALT Alkaline Phosphatase Total Protein Albumin Globulin Albumin/Globulin Ratio Triglycerides Cholesterol LDL Cholesterol VLDL Cholesterol HDL Cholesterol Cholesterol/HDL Ratio Urine Color Urine Appearance Urine pH Ur Specific [place] Urine Protein Urine Glucose (UA) Urine Ketones Urine Blood Urine Nitrate Urine Bilirubin Urine Urobilinogen Ur Leukocyte Esterase Urine RBC Urine WBC Ur Squamous Epith Cells Urine Bacteria Urine Yeast Urine Opiates Screen Urine Methadone Screen Ur Barbituates Screen Ur Phencyclidine Scrn Ur Amphetamines Screen U Benzodiazepines Scrn Urine Cocaine Screen U Marijuana (THC) Screen Acetone Level 09/16/18 09/16/18 09/16/18 22:56 21:55 21:55 WBC RBC Hgb Hct MCV MCH MCHC RDW Plt Count MPV Neut % (Auto) Lymph % (Auto) [place] % (Auto) Eos % (Auto) Baso % (Auto) Neut # (Auto) Lymph # (Auto) [place] # (Auto) Eos # (Auto) Baso # (Auto) Total Counted Neutrophils % (Manual) Lymphocytes % (Manual) Monocytes % (Manual) Platelet Estimate Anisocytosis Macrocytosis VBG pH VBG pCO2 VBG pO2 VBG HCO3 VBG Total CO2 VBG O2 Saturation VBG Base Excess Sodium Potassium Chloride Carbon Dioxide Anion Gap BUN Creatinine Estimated Creat Clear Estimated GFR Est GFR ( Amer) Glucose POC Glucose 545 H* Lactate Calcium Phosphorus Magnesium Total Bilirubin AST ALT Alkaline Phosphatase Total Protein Albumin Globulin Albumin/Globulin Ratio Triglycerides Cholesterol LDL Cholesterol VLDL Cholesterol HDL Cholesterol Cholesterol/HDL Ratio Urine Color Straw Urine Appearance Clear Urine pH 5.5 Ur Specific [place] 1.015 Urine Protein 1+ Urine Glucose (UA) Negative Urine Ketones 3+ Urine Blood Negative Urine Nitrate Negative Urine Bilirubin Negative Urine Urobilinogen 0.2 Ur Leukocyte Esterase Negative Urine RBC None Urine WBC 3-5 Ur Squamous Epith Cells None Urine Bacteria 2+ Urine Yeast 2+ Urine Opiates Screen Negative Urine Methadone Screen Negative Ur Barbituates Screen Negative Ur Phencyclidine Scrn Negative Ur Amphetamines Screen Negative U Benzodiazepines Scrn Negative Urine Cocaine Screen Negative U Marijuana (THC) Screen Negative Acetone Level 09/16/18 09/16/18 09/16/18 21:03 20:35 20:35 WBC RBC Hgb Hct MCV MCH MCHC RDW Plt Count MPV Neut % (Auto) Lymph % (Auto) [place] % (Auto) Eos % (Auto) Baso % (Auto) Neut # (Auto) Lymph # (Auto) [place] # (Auto) Eos # (Auto) Baso # (Auto) Total Counted Neutrophils % (Manual) Lymphocytes % (Manual) Monocytes % (Manual) Platelet Estimate Anisocytosis Macrocytosis VBG pH 7.16 L VBG pCO2 11.8 L VBG pO2 215.3 H VBG HCO3 4.1 L VBG Total CO2 4.5 L VBG O2 Saturation 98.8 H VBG Base Excess -24.6 L Sodium 135 L Potassium 5.4 H Chloride 96 L Carbon Dioxide 6 L* Anion Gap 38.4 H BUN 46 H Creatinine 3.06 H Estimated Creat Clear 32 Estimated GFR 23 L Est GFR ( Amer) 28 L Glucose 948 H* POC Glucose Lactate Calcium 8.8 Phosphorus Magnesium Total Bilirubin 0.5 AST 209 H ALT 230 H Alkaline Phosphatase 1321 H Total Protein 6.3 L Albumin 2.6 L Globulin 3.7 H Albumin/Globulin Ratio 0.7 L Triglycerides Cholesterol LDL Cholesterol VLDL Cholesterol HDL Cholesterol Cholesterol/HDL Ratio Urine Color Urine Appearance Urine pH Ur Specific [place] Urine Protein Urine Glucose (UA) Urine Ketones Urine Blood Urine Nitrate Urine Bilirubin Urine Urobilinogen Ur Leukocyte Esterase Urine RBC Urine WBC Ur Squamous Epith Cells Urine Bacteria Urine Yeast Urine Opiates Screen Urine Methadone Screen Ur Barbituates Screen Ur Phencyclidine Scrn Ur Amphetamines Screen U Benzodiazepines Scrn Urine Cocaine Screen U Marijuana (THC) Screen Acetone Level Moderate 09/16/18 09/16/18 20:35 19:18 WBC 13.2 H RBC 3.84 L Hgb 12.3 L Hct 44.0 MCV 114.6 H MCH 31.9 H MCHC 27.9 L RDW 14.8 Plt Count 416 MPV 9.0 Neut % (Auto) 86.1 H Lymph % (Auto) 8.5 L [place] % (Auto) 4.7 Eos % (Auto) 0.2 Baso % (Auto) 0.4 Neut # (Auto) 11.4 H Lymph # (Auto) 1.1 [place] # (Auto) 0.6 Eos # (Auto) 0.0 Baso # (Auto) 0.1 Total Counted 100 Neutrophils % (Manual) 85 H Lymphocytes % (Manual) 10 Monocytes % (Manual) 5 Platelet Estimate Normal Anisocytosis 1+ Macrocytosis 2+ VBG pH VBG pCO2 VBG pO2 VBG HCO3 VBG Total CO2 VBG O2 Saturation VBG Base Excess Sodium Potassium Chloride Carbon Dioxide Anion Gap BUN Creatinine Estimated Creat Clear Estimated GFR Est GFR ( Amer) Glucose POC Glucose > 600 H* Lactate Calcium Phosphorus Magnesium Total Bilirubin AST ALT Alkaline Phosphatase Total Protein Albumin Globulin Albumin/Globulin Ratio Triglycerides Cholesterol LDL Cholesterol VLDL Cholesterol HDL Cholesterol Cholesterol/HDL Ratio Urine Color Urine Appearance Urine pH Ur Specific [place] Urine Protein Urine Glucose (UA) Urine Ketones Urine Blood Urine Nitrate Urine Bilirubin Urine Urobilinogen Ur Leukocyte Esterase Urine RBC Urine WBC Ur Squamous Epith Cells Urine Bacteria Urine Yeast Urine Opiates Screen Urine Methadone Screen Ur Barbituates Screen Ur Phencyclidine Scrn Ur Amphetamines Screen U Benzodiazepines Scrn Urine Cocaine Screen U Marijuana (THC) Screen Acetone Level Preliminary micro results at discharge 09/16/18 21:55 Urine Culture - Preliminary Urine,Catheterized DS: Diagnosis - Discharge Diagnosis (1) Diabetic ketoacidosis Status: Acute (2) Change in mental status Status: Acute (3) Acute on chronic renal failure Status: Acute (4) Bronchitis Status: Acute (5) Diabetes mellitus, insulin dependent (IDDM), uncontrolled Status: Acute Discharge Medications - Medications for Discharge Home Medication List at Discharge: New Azithromycin [Zithromax 250mg tab] 250 mg PO DIRECTED #6 tab Continue insulin glargine (U- 100) 100 unit/mL subcutaneous solution 35 unit SQ HS ml RX: Gabapentin [Gabapentin 800mg Tab] 800 mg PO QID RX: Carvedilol [Coreg 3.125mg Tablet] 3.125 mg PO BID RX: Albuterol Sulfate [Proair Hfa 90mcg/puff Inh] 2 puffs IH Q4HP PRN #1 inh PRN Reason: Shortness Of Breath Or Wheezing RX: Insulin Aspart [Novolog] 0 unit SQ DIRECTED Discontinued Benzonatate [Tessalon Perle 100mg Cap] 200 mg PO TID PRN 10 Days #30 cap PRN Reason: Cough levoFLOXacin [Levaquin 500mg tab] 500 mg PO DAILY #10 tab predniSONE [Prednisone 20mg Tab] 20 mg PO BID 5 Days #10 tab Disposition Disposition: Home, Self-Care <Ugo Durham - Last Filed: 09/17/18 17:29> General - General Admission date:: 09/16/18 Exam Vital signs and Labs for Last 24 Hours: Temp Pulse Resp BP Pulse Ox 98.2 F 85 17 197/102 H 100 09/17/18 08:22 09/17/18 08:00 09/17/18 08:00 09/17/18 08:00 09/17/18 08:00 Laboratory Results - last 24 hr 09/16/18 19:18: POC Glucose > 600 H* 09/16/18 20:35: WBC 13.2 H, RBC 3.84 L, Hgb 12.3 L, Hct 44.0, MCV 114.6 H, MCH 31.9 H, MCHC 27.9 L, RDW 14.8, Plt Count 416, MPV 9.0, Neut % (Auto) 86.1 H, Lymph % (Auto) 8.5 L, [place] % (Auto) 4.7, Eos % (Auto) 0.2, Baso % (Auto) 0.4, Neut # (Auto) 11.4 H, Lymph # (Auto) 1.1, [place] # (Auto) 0.6, Eos # (Auto) 0.0, Baso # (Auto) 0.1, Total Counted 100, Neutrophils % (Manual) 85 H, Lymphocytes % (Manual) 10, Monocytes % (Manual) 5, Platelet Estimate Normal, Anisocytosis 1+, Macrocytosis 2+ 09/16/18 20:35: Sodium 135 L, Potassium 5.4 H, Chloride 96 L, Carbon Dioxide 6 L*, Anion Gap 38.4 H, BUN 46 H, Creatinine 3.06 H, Estimated Creat Clear 32, Estimated GFR 23 L, Est GFR ( Amer) 28 L, Glucose 948 H*, Calcium 8.8, Total Bilirubin 0.5, AST 209 H, ALT 230 H, Alkaline Phosphatase 1321 H, Total Protein 6.3 L, Albumin 2.6 L, Globulin 3.7 H, Albumin/Globulin Ratio 0.7 L 09/16/18 20:35: Acetone Level Moderate 09/16/18 21:03: VBG pH 7.16 L, VBG pCO2 11.8 L, VBG pO2 215.3 H, VBG HCO3 4.1 L, VBG Total CO2 4.5 L, VBG O2 Saturation 98.8 H, VBG Base Excess -24.6 L 09/16/18 21:55: Urine Color Straw, Urine Appearance Clear, Urine pH 5.5, Ur Specific [place] 1.015, Urine Protein 1+, Urine Glucose (UA) Negative, Urine Ketones 3+, Urine Blood Negative, Urine Nitrate Negative, Urine Bilirubin Negative, Urine Urobilinogen 0.2, Ur Leukocyte Esterase Negative, Urine RBC None, Urine WBC 3-5, Ur Squamous Epith Cells None, Urine Bacteria 2+, Urine Yeast 2+ 09/16/18 21:55: Urine Opiates Screen Negative, Urine Methadone Screen Negative, Ur Barbituates Screen Negative, Ur Phencyclidine Scrn Negative, Ur Amphetamines Screen Negative, U Benzodiazepines Scrn Negative, Urine Cocaine Screen Negative, U Marijuana (THC) Screen Negative 09/16/18 22:56: POC Glucose 545 H* 09/16/18 23:27: POC Glucose 498 H* 09/17/18 02:10: POC Glucose 179 H 09/17/18 03:20: POC Glucose 127 H 09/17/18 05:40: Lactate 3.9 H 09/17/18 05:40: Acetone Level None detected 09/17/18 05:40: WBC 11.9 H, RBC 3.12 L, Hgb 10.0 L D, Hct 30.9 L, MCV 99.1 H, MCH 32.1 H, MCHC 32.4, RDW 15.2, Plt Count 348, MPV 7.6, Neut % (Auto) 69.8, Lymph % (Auto) 23.8, [place] % (Auto) 5.8, Eos % (Auto) 0.4, Baso % (Auto) 0.3, Neut # (Auto) 8.3 H, Lymph # (Auto) 2.8, [place] # (Auto) 0.7, Eos # (Auto) 0.1, Baso # (Auto) 0.0 09/17/18 05:40: Sodium 144, Potassium 3.6 D, Chloride 108 H, Carbon Dioxide 24 D, Anion Gap 15.6 H, BUN 33 H D, Creatinine 2.14 H D, Estimated Creat Clear 46, Estimated GFR 35 L, Est GFR ( Amer) 43 L D, Glucose 113 H D, Calcium 8.0 L, Phosphorus 2.9, Magnesium 1.8, Total Bilirubin 0.3, AST 173 H, ALT 178 H, Alkaline Phosphatase 1053 H, Total Protein 5.4 L, Albumin 2.0 L D, Globulin 3.4 H, Albumin/Globulin Ratio 0.6 L, Triglycerides 103, Cholesterol 170, LDL Cholesterol 57, VLDL Cholesterol 21, HDL Cholesterol 92 H, Cholesterol/HDL Ratio 1.8 09/17/18 05:51: POC Glucose 100 09/17/18 06:52: POC Glucose 124 H 09/17/18 08:16: POC Glucose 116 H 09/17/18 10:25: Lactate 4.8 H 09/17/18 10:49: POC Glucose 101 I & O for Last 24 hours: Intake & Output 09/15/18 09/16/18 09/17/18 09/18/18 11:59 11:59 11:59 11:59 Intake Total 1874 / 1874 240 / 240 Output Total 1950 / 1949 Balance -76 / -76 240 / 240 Weight 150 lb Microbiology Reports for the Last 24 Hours: Microbiology 09/16/18 21:55 Urine,Catheterized Urine Culture - Preliminary Hospital Course Hospital Course: Saw patient twice today, agree with above note. Results Labs on day of discharge: Labs from last 24 hours 09/17/18 09/17/18 09/17/18 10:49 10:25 08:16 WBC RBC Hgb Hct MCV MCH MCHC RDW Plt Count MPV Neut % (Auto) Lymph % (Auto) [place] % (Auto) Eos % (Auto) Baso % (Auto) Neut # (Auto) Lymph # (Auto) [place] # (Auto) Eos # (Auto) Baso # (Auto) Total Counted Neutrophils % (Manual) Lymphocytes % (Manual) Monocytes % (Manual) Platelet Estimate Anisocytosis Macrocytosis VBG pH VBG pCO2 VBG pO2 VBG HCO3 VBG Total CO2 VBG O2 Saturation VBG Base Excess Sodium Potassium Chloride Carbon Dioxide Anion Gap BUN Creatinine Estimated Creat Clear Estimated GFR Est GFR ( Amer) Glucose POC Glucose 101 116 H Lactate 4.8 H Calcium Phosphorus Magnesium Total Bilirubin AST ALT Alkaline Phosphatase Total Protein Albumin Globulin Albumin/Globulin Ratio Triglycerides Cholesterol LDL Cholesterol VLDL Cholesterol HDL Cholesterol Cholesterol/HDL Ratio Urine Color Urine Appearance Urine pH Ur Specific [place] Urine Protein Urine Glucose (UA) Urine Ketones Urine Blood Urine Nitrate Urine Bilirubin Urine Urobilinogen Ur Leukocyte Esterase Urine RBC Urine WBC Ur Squamous Epith Cells Urine Bacteria Urine Yeast Urine Opiates Screen Urine Methadone Screen Ur Barbituates Screen Ur Phencyclidine Scrn Ur Amphetamines Screen U Benzodiazepines Scrn Urine Cocaine Screen U Marijuana (THC) Screen Acetone Level 09/17/18 09/17/18 09/17/18 06:52 05:51 05:40 WBC RBC Hgb Hct MCV MCH MCHC RDW Plt Count MPV Neut % (Auto) Lymph % (Auto) [place] % (Auto) Eos % (Auto) Baso % (Auto) Neut # (Auto) Lymph # (Auto) [place] # (Auto) Eos # (Auto) Baso # (Auto) Total Counted Neutrophils % (Manual) Lymphocytes % (Manual) Monocytes % (Manual) Platelet Estimate Anisocytosis Macrocytosis VBG pH VBG pCO2 VBG pO2 VBG HCO3 VBG Total CO2 VBG O2 Saturation VBG Base Excess Sodium 144 Potassium 3.6 D Chloride 108 H Carbon Dioxide 24 D Anion Gap 15.6 H BUN 33 H D Creatinine 2.14 H D Estimated Creat Clear 46 Estimated GFR 35 L Est GFR ( Amer) 43 L D Glucose 113 H D POC Glucose 124 H 100 Lactate Calcium 8.0 L Phosphorus 2.9 Magnesium 1.8 Total Bilirubin 0.3 AST 173 H ALT 178 H Alkaline Phosphatase 1053 H Total Protein 5.4 L Albumin 2.0 L D Globulin 3.4 H Albumin/Globulin Ratio 0.6 L Triglycerides 103 Cholesterol 170 LDL Cholesterol 57 VLDL Cholesterol 21 HDL Cholesterol 92 H Cholesterol/HDL Ratio 1.8 Urine Color Urine Appearance Urine pH Ur Specific [place] Urine Protein Urine Glucose (UA) Urine Ketones Urine Blood Urine Nitrate Urine Bilirubin Urine Urobilinogen Ur Leukocyte Esterase Urine RBC Urine WBC Ur Squamous Epith Cells Urine Bacteria Urine Yeast Urine Opiates Screen Urine Methadone Screen Ur Barbituates Screen Ur Phencyclidine Scrn Ur Amphetamines Screen U Benzodiazepines Scrn Urine Cocaine Screen U Marijuana (THC) Screen Acetone Level 09/17/18 09/17/18 09/17/18 05:40 05:40 05:40 WBC 11.9 H RBC 3.12 L Hgb 10.0 L D Hct 30.9 L MCV 99.1 H MCH 32.1 H MCHC 32.4 RDW 15.2 Plt Count 348 MPV 7.6 Neut % (Auto) 69.8 Lymph % (Auto) 23.8 [place] % (Auto) 5.8 Eos % (Auto) 0.4 Baso % (Auto) 0.3 Neut # (Auto) 8.3 H Lymph # (Auto) 2.8 [place] # (Auto) 0.7 Eos # (Auto) 0.1 Baso # (Auto) 0.0 Total Counted Neutrophils % (Manual) Lymphocytes % (Manual) Monocytes % (Manual) Platelet Estimate Anisocytosis Macrocytosis VBG pH VBG pCO2 VBG pO2 VBG HCO3 VBG Total CO2 VBG O2 Saturation VBG Base Excess Sodium Potassium Chloride Carbon Dioxide Anion Gap BUN Creatinine Estimated Creat Clear Estimated GFR Est GFR ( Amer) Glucose POC Glucose Lactate 3.9 H Calcium Phosphorus Magnesium Total Bilirubin AST ALT Alkaline Phosphatase Total Protein Albumin Globulin Albumin/Globulin Ratio Triglycerides Cholesterol LDL Cholesterol VLDL Cholesterol HDL Cholesterol Cholesterol/HDL Ratio Urine Color Urine Appearance Urine pH Ur Specific [place] Urine Protein Urine Glucose (UA) Urine Ketones Urine Blood Urine Nitrate Urine Bilirubin Urine Urobilinogen Ur Leukocyte Esterase Urine RBC Urine WBC Ur Squamous Epith Cells Urine Bacteria Urine Yeast Urine Opiates Screen Urine Methadone Screen Ur Barbituates Screen Ur Phencyclidine Scrn Ur Amphetamines Screen U Benzodiazepines Scrn Urine Cocaine Screen U Marijuana (THC) Screen Acetone Level None detected 11/12/18 11/12/18 11/11/18 03:20 02:10 23:27 WBC RBC Hgb Hct MCV MCH MCHC RDW Plt Count MPV Neut % (Auto) Lymph % (Auto) [place] % (Auto) Eos % (Auto) Baso % (Auto) Neut # (Auto) Lymph # (Auto) [place] # (Auto) Eos # (Auto) Baso # (Auto) Total Counted Neutrophils % (Manual) Lymphocytes % (Manual) Monocytes % (Manual) Platelet Estimate Anisocytosis Macrocytosis VBG pH VBG pCO2 VBG pO2 VBG HCO3 VBG Total CO2 VBG O2 Saturation VBG Base Excess Sodium Potassium Chloride Carbon Dioxide Anion Gap BUN Creatinine Estimated Creat Clear Estimated GFR Est GFR ( Amer) Glucose POC Glucose 127 H 179 H 498 H* Lactate Calcium Phosphorus Magnesium Total Bilirubin AST ALT Alkaline Phosphatase Total Protein Albumin Globulin Albumin/Globulin Ratio Triglycerides Cholesterol LDL Cholesterol VLDL Cholesterol HDL Cholesterol Cholesterol/HDL Ratio Urine Color Urine Appearance Urine pH Ur Specific [place] Urine Protein Urine Glucose (UA) Urine Ketones Urine Blood Urine Nitrate Urine Bilirubin Urine Urobilinogen Ur Leukocyte Esterase Urine RBC Urine WBC Ur Squamous Epith Cells Urine Bacteria Urine Yeast Urine Opiates Screen Urine Methadone Screen Ur Barbituates Screen Ur Phencyclidine Scrn Ur Amphetamines Screen U Benzodiazepines Scrn Urine Cocaine Screen U Marijuana (THC) Screen Acetone Level 09/16/18 09/16/18 09/16/18 22:56 21:55 21:55 WBC RBC Hgb Hct MCV MCH MCHC RDW Plt Count MPV Neut % (Auto) Lymph % (Auto) [place] % (Auto) Eos % (Auto) Baso % (Auto) Neut # (Auto) Lymph # (Auto) [place] # (Auto) Eos # (Auto) Baso # (Auto) Total Counted Neutrophils % (Manual) Lymphocytes % (Manual) Monocytes % (Manual) Platelet Estimate Anisocytosis Macrocytosis VBG pH VBG pCO2 VBG pO2 VBG HCO3 VBG Total CO2 VBG O2 Saturation VBG Base Excess Sodium Potassium Chloride Carbon Dioxide Anion Gap BUN Creatinine Estimated Creat Clear Estimated GFR Est GFR ( Amer) Glucose POC Glucose 545 H* Lactate Calcium Phosphorus Magnesium Total Bilirubin AST ALT Alkaline Phosphatase Total Protein Albumin Globulin Albumin/Globulin Ratio Triglycerides Cholesterol LDL Cholesterol VLDL Cholesterol HDL Cholesterol Cholesterol/HDL Ratio Urine Color Straw Urine Appearance Clear Urine pH 5.5 Ur Specific [place] 1.015 Urine Protein 1+ Urine Glucose (UA) Negative Urine Ketones 3+ Urine Blood Negative Urine Nitrate Negative Urine Bilirubin Negative Urine Urobilinogen 0.2 Ur Leukocyte Esterase Negative Urine RBC None Urine WBC 3-5 Ur Squamous Epith Cells None Urine Bacteria 2+ Urine Yeast 2+ Urine Opiates Screen Negative Urine Methadone Screen Negative Ur Barbituates Screen Negative Ur Phencyclidine Scrn Negative Ur Amphetamines Screen Negative U Benzodiazepines Scrn Negative Urine Cocaine Screen Negative U Marijuana (THC) Screen Negative Acetone Level 09/16/18 09/16/18 09/16/18 21:03 20:35 20:35 WBC RBC Hgb Hct MCV MCH MCHC RDW Plt Count MPV Neut % (Auto) Lymph % (Auto) [place] % (Auto) Eos % (Auto) Baso % (Auto) Neut # (Auto) Lymph # (Auto) [place] # (Auto) Eos # (Auto) Baso # (Auto) Total Counted Neutrophils % (Manual) Lymphocytes % (Manual) Monocytes % (Manual) Platelet Estimate Anisocytosis Macrocytosis VBG pH 7.16 L VBG pCO2 11.8 L VBG pO2 215.3 H VBG HCO3 4.1 L VBG Total CO2 4.5 L VBG O2 Saturation 98.8 H VBG Base Excess -24.6 L Sodium 135 L Potassium 5.4 H Chloride 96 L Carbon Dioxide 6 L* Anion Gap 38.4 H BUN 46 H Creatinine 3.06 H Estimated Creat Clear 32 Estimated GFR 23 L Est GFR ( Amer) 28 L Glucose 948 H* POC Glucose Lactate Calcium 8.8 Phosphorus Magnesium Total Bilirubin 0.5 AST 209 H ALT 230 H Alkaline Phosphatase 1321 H Total Protein 6.3 L Albumin 2.6 L Globulin 3.7 H Albumin/Globulin Ratio 0.7 L Triglycerides Cholesterol LDL Cholesterol VLDL Cholesterol HDL Cholesterol Cholesterol/HDL Ratio Urine Color Urine Appearance Urine pH Ur Specific [place] Urine Protein Urine Glucose (UA) Urine Ketones Urine Blood Urine Nitrate Urine Bilirubin Urine Urobilinogen Ur Leukocyte Esterase Urine RBC Urine WBC Ur Squamous Epith Cells Urine Bacteria Urine Yeast Urine Opiates Screen Urine Methadone Screen Ur Barbituates Screen Ur Phencyclidine Scrn Ur Amphetamines Screen U Benzodiazepines Scrn Urine Cocaine Screen U Marijuana (THC) Screen Acetone Level Moderate 09/16/18 09/16/18 20:35 19:18 WBC 13.2 H RBC 3.84 L Hgb 12.3 L Hct 44.0 MCV 114.6 H MCH 31.9 H MCHC 27.9 L RDW 14.8 Plt Count 416 MPV 9.0 Neut % (Auto) 86.1 H Lymph % (Auto) 8.5 L [place] % (Auto) 4.7 Eos % (Auto) 0.2 Baso % (Auto) 0.4 Neut # (Auto) 11.4 H Lymph # (Auto) 1.1 [place] # (Auto) 0.6 Eos # (Auto) 0.0 Baso # (Auto) 0.1 Total Counted 100 Neutrophils % (Manual) 85 H Lymphocytes % (Manual) 10 Monocytes % (Manual) 5 Platelet Estimate Normal Anisocytosis 1+ Macrocytosis 2+ VBG pH VBG pCO2 VBG pO2 VBG HCO3 VBG Total CO2 VBG O2 Saturation VBG Base Excess Sodium Potassium Chloride Carbon Dioxide Anion Gap BUN Creatinine Estimated Creat Clear Estimated GFR Est GFR ( Amer) Glucose POC Glucose > 600 H* Lactate Calcium Phosphorus Magnesium Total Bilirubin AST ALT Alkaline Phosphatase Total Protein Albumin Globulin Albumin/Globulin Ratio Triglycerides Cholesterol LDL Cholesterol VLDL Cholesterol HDL Cholesterol Cholesterol/HDL Ratio Urine Color Urine Appearance Urine pH Ur Specific [place] Urine Protein Urine Glucose (UA) Urine Ketones Urine Blood Urine Nitrate Urine Bilirubin Urine Urobilinogen Ur Leukocyte Esterase Urine RBC Urine WBC Ur Squamous Epith Cells Urine Bacteria Urine Yeast Urine Opiates Screen Urine Methadone Screen Ur Barbituates Screen Ur Phencyclidine Scrn Ur Amphetamines Screen U Benzodiazepines Scrn Urine Cocaine Screen U Marijuana (THC) Screen Acetone Level Preliminary micro results at discharge 09/16/18 21:55 Urine Culture - Preliminary Urine,Catheterized DS: Diagnosis - Discharge Diagnosis (1) Diabetic ketoacidosis Status: Acute (2) Change in mental status Status: Acute (3) Acute on chronic renal failure Status: Acute (4) Bronchitis Status: Acute (5) Diabetes mellitus, insulin dependent (IDDM), uncontrolled Status: Acute
== END 2018-09-17 13:30 | disposition home or self-care (01) ==
LOC: ER 19:13 → ICU 19:13 → OBSVTOIN 23:10 → ICU 23:12
PROVIDERS: ADMIT Family Medicine; ATTEND Family Medicine

== ENCOUNTER 2018-11-07 15:19 | Inpatient (IN) ==
--- NOTE | 2018-11-07 15:29 | Emergency Department Note ---
ED Disposition Clinical Impression: DKA (diabetic ketoacidoses) Qualifiers: Diabetes mellitus type: type 1 Diabetes mellitus complication detail: without coma Qualified Code(s): E10.10 - Type 1 diabetes mellitus with ketoacidosis without coma Urinary tract infection Qualifiers: Urinary tract infection type: site unspecified Hematuria presence: without hematuria Qualified Code(s): N39.0 - Urinary tract infection, site not specified Acute on chronic renal failure Qualifiers: Acute renal failure type: unspecified Chronic kidney disease stage: unspecified stage Qualified Code(s): N17.9 - Acute kidney failure, unspecified; N18.9 - Chronic kidney disease, unspecified Disposition: Still a Patient Condition on Discharge: Serious - Critical Care Critical Care Time: Yes Attestation: On , the high probability of a clinically significant, sudden or life threatening deterioration of the following system(s) required my full and direct attention, intervention and personal management. The time I documented below is in addition to time spent performing reported procedures but includes the following listed in this critical care notation. Total Critical Care Time: 50 Vital system(s) involved:: Metabolic Failure, Renal Failure My critical care processes included: Assessment & monitoring of V/S, Initial and Re-exams, Data Review/Interpretation, Coordinating Care, Medication Orders and management, Documentation Medical Decision Making - Michael Inquiry Pt receiving controlled substance: No Vital Signs: 11/07/18 15:20 11/07/18 15:46 11/07/18 16:53 Temperature 94.6 F L 94.8 F L Temperature Source Rectal Rectal Pulse Rate [Left Radial] 181 H 183 H 181 H Respiratory Rate 32 H Blood Pressure [Left Arm] 120/86 150/57 H 120/86 Blood Pressure Mean [Left Arm] 97 88 97 Blood Pressure Source [Left Arm] Automatic Cuff Automatic Cuff Automatic Cuff Blood Pressure Position [Left Arm] Sitting Supine 02 Sat by Pulse Oximetry 96 100 100 Oxygen Delivery Method Room Air Room Air Room Air 11/07/18 18:02 Temperature 96 F L Temperature Source Rectal Pulse Rate [Left Radial] 123 H Respiratory Rate Blood Pressure [Left Arm] 126/75 Blood Pressure Mean [Left Arm] 92 Blood Pressure Source [Left Arm] Automatic Cuff Blood Pressure Position [Left Arm] Sitting 02 Sat by Pulse Oximetry Oxygen Delivery Method - Lab Data Lab Results 11/07/18 15:15: WBC 12.7 H, RBC 4.19 L, Hgb 12.5 L, Hct 46.6, MCV 111.4 H, MCH 29.9, MCHC 26.8 L, RDW 14.0, Plt Count 638 H, MPV 10.4, Neut % (Auto) 77.3, Lymph % (Auto) 17.4, [place] % (Auto) 3.8, Eos % (Auto) 0.5, Baso % (Auto) 1.0, Neut # (Auto) 9.8 H, Lymph # (Auto) 2.2, [place] # (Auto) 0.5, Eos # (Auto) 0.1, Baso # (Auto) 0.1 11/07/18 15:15: Sodium 129 L, Potassium 4.7, Chloride 84 L, Carbon Dioxide 8 L*, Anion Gap 41.7 H, BUN 61 H, Creatinine 3.71 H, Estimated Creat Clear 26, Estimated GFR 19 L*, Est GFR ( Amer) 23 L, Glucose , Calcium 9.8, Total Bilirubin 0.6, AST 284 H, ALT 271 H, Alkaline Phosphatase 1399 H, Total Protein 8.1, Albumin 2.8 L, Globulin 5.3 H, Albumin/Globulin Ratio 0.5 L 11/07/18 15:15: Acetone Level Small 11/07/18 15:15: Phosphorus 8.4 H, Magnesium 2.9 H, Troponin I < 0.02 11/07/18 15:15: TSH 0.91, Free T4 Index 2.7 L, Thyroxine (T4) 6.9, T3 Uptake 39 11/07/18 15:39: Specimen Source R radial, O2 % 2lpm, ABG pH 7.09 L*, ABG pCO2 11.0 L, ABG pO2 130.9 H, ABG HCO3 3.3 L, ABG Total CO2 3.6 L, ABG O2 Saturation 98, ABG Base Excess -26.5 L, [place] Test Acceptable 11/07/18 16:35: Urine Color Straw, Urine Appearance Sl cloudy, Urine pH 6.0, Ur Specific [place] 1.020, Urine Protein 2+, Urine Glucose (UA) 3+, Urine Ketones 3+, Urine Blood 2+, Urine Nitrate Negative, Urine Bilirubin Negative, Urine Urobilinogen 0.2, Ur Leukocyte Esterase Trace, Urine RBC Occasional, Urine WBC 50-100, Ur Squamous Epith Cells None, Urine Bacteria Trace 11/07/18 17:38: Lactate 5.0 H Result diagrams: 11/07/18 15:15 11/07/18 15:15 Orders (Tests/Meds): ED MEDICATIONS Generic Name Dose Route Start Last Admin Trade Name Freq PRN Reason Stop Dose Admin Insulin Human Regular 100 unit 101 mls @ 6.64 mls/hr 11/07/18 16:45 11/07/18 17:14 / Sodium Chloride IV 12/07/18 16:44 6.64 mls/hr .[id number] CASTILLO Administration Protocol 0.1 UNITS/KG/HR Sodium Chloride 1,000 mls @ 200 mls/hr 11/07/18 17:15 11/07/18 17:14 Sod Chlor 0.9% 1000ml Bag IV 12/07/18 17:14 200 mls/hr .Q5H CASTILLO Administration Discontinued Medications Generic Name Dose Route Start Last Admin Trade Name Freq PRN Reason Stop Dose Admin Sodium Chloride 1,000 mls @ 999 mls/hr 11/07/18 15:30 11/07/18 15:27 Sod Chlor 0.9% 1000ml Bag IV 11/07/18 16:30 999 mls/hr .Q1H1M CASTILLO Administration Sodium Chloride 1,000 mls @ 999 mls/hr 11/07/18 16:00 11/07/18 15:56 Sod Chlor 0.9% 1000ml Bag IV 11/07/18 17:00 999 mls/hr .Q1H1M CASTILLO Administration Ondansetron HCl 4 mg 11/07/18 15:55 11/07/18 15:55 Zofran 4mg/2ml Vial IV 11/07/18 15:56 4 mg ONCE ONE Administration ORDERS Category Date Time Status Urinalysis and Microscopic Stat Lab 11/07/18 16:35 Ordered Urine Culture Stat Micro 11/07/18 16:35 Received - ECG Data Tracing #1 EKG interpreted by Wilver Stewart MD: Rhythm: Irregular narrow complex tachycardia. Some P waves seen. Computer interpretation is sinus tachycardia with occasional premature ventricular complexes and fusion complexes. Possibly atrial fibrillation to my interpretation. Rate: 175 [place]: normal Ectopy: none Conduction: normal ST Segment Changes: none T Wave Changes: none Q Waves: none No evidence of acute ischemia or injury Baseline artifact and wander present, but I consider the EKG adequate for accurate interpretation. - Physician Consults Physician Consulted: Moshe Time: 18:11 Reason -: Admission Comment/Response: Agrees to admit the patient to the hospital. We discussed the patient's clinical information, including history, exam, laboratory and radiology results and ED course. Per hospital procedure, I will write temporary bridge inpatient orders on the patient. Specific orders requested by the admitting physician: DKA protocol - Reevaluation(s) Time: 16:42 Reevaluation #1: Iliac monitor looks like sinus tachycardia with premature atrial contractions and sinus arrhythmia Medical Decision Narrative: 6:10 PM: present. She states he just got a getting altered mental status today. Has been battling a urinary tract infection for several weeks. Has been on Zithromax and Keflex. Has an allergy to penicillin, but can take Keflex. Leta mann does not have a primary care physician. He is compliant with his insulin. General Adult HPI - General Chief complaint: Hyper/Hypoglycemia Stated complaint: hyperglycemia Time Seen by Provider: 11/07/18 15:21 - History of Present Illness HPI narrative: Brought in by ambulance for altered mental status. Patient unable to give further history. Blood sugar registers "high" on glucometer. Patient known to be a brittle diabetic with frequent diabetic ketoacidosis. - Related Data Home Medications Medication Instructions Recorded Confirmed Gabapentin [Gabapentin 800mg Tab] 800 mg PO QID 12/19/17 11/07/18 Insulin Aspart [Novolog] 0 unit SQ DIRECTED 12/19/17 11/07/18 insulin glargine (U- 100) 100 35 unit SQ HS ml 08/07/18 11/07/18 unit/mL subcutaneous solution Carvedilol [Coreg 3.125mg Tablet] 3.125 mg PO BID 08/10/18 11/07/18 Previous Rx's Medication Instructions Recorded Albuterol Sulfate [Proair Hfa 2 puffs IH Q4HP PRN #1 inh 09/15/18 90mcg/puff Inh] Allergies Allergy/AdvReac Type Severity Reaction Status Date / Time Penicillins [PENICILLINS] Allergy Severe I-HIVES Verified 09/16/18 23:47 [facility] History - Hepatitis A Screen Attestation statement:: This patient has been screened for Hepatitis A risk factors. I have reviewed the patient's past medical history: Yes Medical History: Reports:: Diabetes Mellitus Type 1, Hyperlipidemia, Hypertension, Renal Insufficiency Denies:: Cancer, Diabetes Mellitus Type 2, MRSA Other Medical History: Reports: Other Comment: high heart rate Laterality Cases: Bilateral: Tonsillectomy Other Surgeries: Yes: No Previous Surgery, Other (tonsillectomy) Amputation: No Fractures: No - Social History Smoking Status: Never smoker Tobacco Type: smokeless tobacco # Packs/Day (cigarettes): 1 Alcohol Intake: never Alcohol Intake Frequency:: a few times a month Substance Use Type: denies use Occupational Status: employed Housing: apartment Household Members: spouse, family, children Family Hx:: Cancer, Diabetes, Hyperlipidemia, Hypertension, Stroke ROS Obtained: Yes unobtainable due to mental status Physical Exam - General General appearance: other (Somnolent. Arouses to sternal rub and answers questions briefly. States he is in the hospital. Says he feels "okay".) Comment: [place]uss[place]ul breathing. Dry lips. - Head Head exam: atraumatic, normocephalic - Eye Eye exam: Present: PERRL, EOMI - ENT ENT exam: Present: mucous membranes dry - Neck Neck exam: Present: normal inspection, trachea midline. Absent: meningismus - Chest Chest inspection: Present: normal inspection, symmetric chest wall rise - Respiratory Respiratory exam: Present: normal lung sounds bilaterally. Absent: respiratory distress - Cardiovascular Cardiovascular exam: Present: tachycardia, irregular rhythm - Abdominal Exam Abdominal exam: Present: soft - Extremities Exam Extremities exam: Present: normal inspection - Neurological Exam Neurological exam: Present: other (Somnolent) - Skin Skin exam: Present: warm, dry
[2018-11-07 15:42] LABS: ABG Base Excess -26.5 mmol/L (-2.4-2.3); ABG HCO3 3.3 mmhg (22.0-26.0); ABG Oxygen Saturation 98 % (90-100); ABG PO2 130.9 mmhg (80-100); ABG TCO2 3.6 mmhg (23-27)
[2018-11-07 15:45] LABS: ABG PH 7.09 mmol/L (7.35-7.45); Allen's Test ACCEPTABLE; Oxygen 2LPM %
[2018-11-07 16:04] LABS: Phosphorous 8.4 mg/dL (2.4-4.9)
[2018-11-07 16:06] LABS: Basophils # 0.1 K/mm3 (0-0.2); Eosinophils # 0.1 K/mm3 (0.0-0.4); Eosinophils % 0.5 % (0.1-12.0); Hematocrit 46.6 % (42.0-52.0); Hemoglobin 12.5 g/dL (14.1-18.0); Lymphocytes # 2.2 K/mm3 (0.7-4.5); Lymphocytes % 17.4 % (10-50); Mean Corpuscular HGB Conc 26.8 g/dL (31.8-35.4); Mean Corpuscular Hemoglobin 29.9 pg (27.0-31.2); Mean Corpuscular Volume 111.4 fl (80-94); Mean Platelet Volume 10.4 fl (7.4-10.4); Monocytes # 0.5 K/mm3 (0.1-1.0); Monocytes % 3.8 % (1.7-9.3); Neutrophils # 9.8 K/mm3 (1.8-7.8); Neutrophils % 77.3 % (37.0-80.0); Platelet Count 638 K/mm3 (142-424); Red Blood Count 4.19 M/mm3 (4.60-6.20); White Blood Count 12.7 K/mm3 (4.8-10.8)
[2018-11-07 16:11] LABS: Albumin Level 2.8 gm/dL (3.4-5.0); Albumin/Globulin Ratio 0.5 (1.1-1.8); Anion Gap 41.7 mEq/L (5-15); Bilirubin,Total 0.6 mg/dL (0.2-1.0); Calcium 9.8 mg/dL (8.5-10.1); Globulin 5.3 gm/dl (1.3-3.2); Potassium 4.7 mmoL/L (3.5-5.1); Total Protein,Serum 8.1 gm/dL (6.4-8.2)
[2018-11-07 16:31] LABS: Free Thyroxine Index 2.7 ug/dL (5.93-13.13); Thyroid Stimulating Hormone 0.91 uIU/ml (0.358-3.740)
[2018-11-07 16:39] LABS: Microscopic, Urine URINE MICROSCOPIC (MICROSCOPIC)
[2018-11-07 16:45] LABS: Appearance,Urine SL CLOUDY (Clear); Bilirubin,Urine Negative (Negative); Blood, Urine 2+ (Negative); Color,Urine STRAW (Yellow); Glucose,Urine (UA) 3+ (Negative); Ketones,Urine 3+ (Negative); Leukocyte Esterase,Urine TRACE (Negative); Protein,Urine 2+ (Negative); Urobilinogen,Urine 0.2 EU/dl (0.2)
[2018-11-07 17:02] LABS: Bacteria,Urine Trace /lpf; RBC,Urine Occasional #/hpf (0-3); WBC,Urine 50-100 #/hpf (0-3)
[2018-11-07 18:46] LABS: ABG Base Excess -24.9 mmol/L (-2.4-2.3); ABG Oxygen Saturation 99 % (90-100); ABG PO2 192.4 mmhg (80-100); ABG TCO2 4.4 mmhg (23-27)
[2018-11-07 18:48] LABS: Allen's Test Acceptable; Oxygen 21 %
[2018-11-07 18:49] LABS: ABG PH 7.15 mmol/L (7.35-7.45)
[2018-11-07 19:02] LABS: Blood Urea Nitrogen 55 mg/dL (7-18); Chloride 98 mmol/L (98-107); Potassium 5.1 mmoL/L (3.5-5.1); Sodium 137 mmol/L (136-145)
[2018-11-07 19:05] LABS: Anion Gap 39.1 mEq/L (5-15)
[2018-11-07 19:08] LABS: Acetone, Serum (Rapid) Small (None Detect); Carbon Dioxide 5 mmol/L (21.0-32.0)
[2018-11-07 19:25] LABS: Glucose 1056 mg/dL (74-106)
[2018-11-07 20:18] LABS: Calcium 7.8 mg/dL (8.5-10.1)
--- NOTE | 2018-11-07 20:27 | Progress Note ---
Internal Medicine - PN: Subj *Date: 11/07/18 *Time: 20:23 Interval history: 38-year-old white male diabetic admitted via the emergency room in [facility]. Blood sugar is greater than 1000 on admission to the floor. His pH is 7.15 but was 7.0 on admission. The patient has similar past admissions. He does not have a regular primary care provider. At the time I am seeing him his family is not with him. He is poorly responsive, but is responsive. Information is reviewed from the emergency room chart as well as past admissions. Apparently he has had a recent urinary tract infection. He has renal insufficiency related to his diabetes. Med list is reviewed. Carvedilol twice daily is noted. Lantus 35 units nightly is noted. The patient is currently on DKA protocol. Exam Vital signs and Labs for Last 24 Hours: Temp Pulse Resp BP Pulse Ox 96.8 F L 120 H 20 147/86 H 100 11/07/18 19:22 11/07/18 19:22 11/07/18 19:22 11/07/18 19:22 11/07/18 19:22 Laboratory Results - last 24 hr 11/07/18 15:15: WBC 12.7 H, RBC 4.19 L, Hgb 12.5 L, Hct 46.6, MCV 111.4 H, MCH 29.9, MCHC 26.8 L, RDW 14.0, Plt Count 638 H, MPV 10.4, Neut % (Auto) 77.3, Lymph % (Auto) 17.4, [place] % (Auto) 3.8, Eos % (Auto) 0.5, Baso % (Auto) 1.0, Neut # (Auto) 9.8 H, Lymph # (Auto) 2.2, [place] # (Auto) 0.5, Eos # (Auto) 0.1, Baso # (Auto) 0.1 11/07/18 15:15: Sodium 129 L, Potassium 4.7, Chloride 84 L, Carbon Dioxide 8 L*, Anion Gap 41.7 H, BUN 61 H, Creatinine 3.71 H, Estimated Creat Clear 26, Estimated GFR 19 L*, Est GFR ( Amer) 23 L, Glucose , Calcium 9.8, Total Bilirubin 0.6, AST 284 H, ALT 271 H, Alkaline Phosphatase 1399 H, Total Protein 8.1, Albumin 2.8 L, Globulin 5.3 H, Albumin/Globulin Ratio 0.5 L 11/07/18 15:15: Acetone Level Small 11/07/18 15:15: Phosphorus 8.4 H, Magnesium 2.9 H, Troponin I < 0.02 11/07/18 15:15: TSH 0.91, Free T4 Index 2.7 L, Thyroxine (T4) 6.9, T3 Uptake 39 11/07/18 15:39: Specimen Source R radial, O2 % 2lpm, ABG pH 7.09 L*, ABG pCO2 11.0 L, ABG pO2 130.9 H, ABG HCO3 3.3 L, ABG Total CO2 3.6 L, ABG O2 Saturation 98, ABG Base Excess -26.5 L, [place] Test Acceptable 11/07/18 16:35: Urine Color Straw, Urine Appearance Sl cloudy, Urine pH 6.0, Ur Specific [place] 1.020, Urine Protein 2+, Urine Glucose (UA) 3+, Urine Ketones 3+, Urine Blood 2+, Urine Nitrate Negative, Urine Bilirubin Negative, Urine Urobilinogen 0.2, Ur Leukocyte Esterase Trace, Urine RBC Occasional, Urine WBC 50-100, Ur Squamous Epith Cells None, Urine Bacteria Trace 11/07/18 17:38: Lactate 5.0 H 11/07/18 18:28: Specimen Source Left radial, O2 % 21, ABG pH 7.15 L*, ABG pCO2 12.0 L, ABG pO2 192.4 H, ABG HCO3 4.0 L, ABG Total CO2 4.4 L, ABG O2 Saturation 99, ABG Base Excess -24.9 L, [place] Test Acceptable 11/07/18 18:40: Sodium 137, Potassium 5.1, Chloride 98, Carbon Dioxide 5 L* D, Anion Gap 39.1 H, BUN 55 H, Creatinine 3.03 H, Estimated Creat Clear 31, Estimated GFR 24 L, Est GFR ( Amer) 28 L D, Glucose 1056 H*, Calcium 7.8 L D, Acetone Level Small Laboratory Tests 11/07/18 11/07/18 11/07/18 15:15 17:38 18:40 Sodium 129 L 137 Potassium 4.7 5.1 Chloride 84 L 98 Carbon Dioxide 8 L* 5 L* D Anion Gap 41.7 H 39.1 H BUN 61 H 55 H Creatinine 3.71 H 3.03 H Glucose 1056 H* Lactate 5.0 H I & O for Last 24 hours: Intake & Output 11/05/18 11/06/18 11/07/18 11/08/18 11:59 11:59 11:59 11:59 Weight 148 lb 1 oz - Constitutional Comments: The patient does not appear to be in respiratory distress. He is somnolent and rather hard to arouse. He does arouse and answer some questions. - *Routine HEENT Exam Head: Present: normocephalic Eye: Present: PERRL ENT: Present: mucous membranes dry - *Routine Neck Exam Present: supple - Routine Chest/Breast/Axilla Exam Chest wall: Absent: tenderness - *Routine Respiratory Exam Present: CTA bilaterally - *Routine Cardiovascular Exam Present: tachycardia Comments: Sinus tachycardia at 120. Apparently his heart rate on admission was higher than this in the emergency room. - *Routine Abdominal Exam Present: soft. Absent: tenderness - *Routine Rectal Exam Comments: Rectal exam not done. - *Routine Skin Exam Present: dry - *Routine Neurological Exam As described above. He is somnolent but responds to some questions. He states he does not feel well. Assessment and Plan (1) Diabetic ketoacidosis Current visit: Yes Status: Acute Qualifiers: Diabetes mellitus type: type 1 Diabetes mellitus complication detail: without coma Qualified Code(s): E10.10 - Type 1 diabetes mellitus with ketoacidosis without coma Category: Medical Code(s): E13.10 - Other specified diabetes mellitus with ketoacidosis without coma (2) Tachycardia Current visit: Yes Status: Acute Category: Medical Code(s): R00.0 - Tachycardia, unspecified (3) Acute on chronic renal failure Current visit: Yes Status: Acute Qualifiers: Acute renal failure type: unspecified Chronic kidney disease stage: unspecified stage Qualified Code(s): N17.9 - Acute kidney failure, unspecified; N18.9 - Chronic kidney disease, unspecified Category: Medical Code(s): N17.9 - Acute kidney failure, unspecified; N18.9 - Chronic kidney disease, unspecified (4) UTI (urinary tract infection) Current visit: Yes Status: Acute Qualifiers: Urinary tract infection type: site unspecified Hematuria presence: without hematuria Qualified Code(s): N39.0 - Urinary tract infection, site not specified Category: Medical Code(s): N39.0 - Urinary tract infection, site not specified - Assessment and plan all Dx Assessment and Plan for all problems:: The patient is being treated with DKA protocol. Blood sugars and electrolytes will be followed carefully. I have asked that he be given his evening dose of carvedilol if he can take the pill by mouth. I am also ordering his insulin glargine dose to be given at 30 units. He is on the residential monitor. He is in the stepdown unit.
[2018-11-07 22:25] LABS: Anion Gap 27.5 mEq/L (5-15); Calcium 7.5 mg/dL (8.5-10.1); Potassium 3.5 mmoL/L (3.5-5.1)
[2018-11-08 00:52] LABS: Anion Gap 18.2 mEq/L (5-15); Calcium 7.8 mg/dL (8.5-10.1); Potassium 3.2 mmoL/L (3.5-5.1)
[2018-11-08 02:57] LABS: Anion Gap 15.6 mEq/L (5-15); Calcium 7.9 mg/dL (8.5-10.1); Potassium 3.6 mmoL/L (3.5-5.1)
[2018-11-08 06:00] LABS: Acetone, Serum (Rapid) None Detected (None Detect)
[2018-11-08 06:01] LABS: Anion Gap 13.4 mEq/L (5-15); Blood Urea Nitrogen 40 mg/dL (7-18); Calcium 7.6 mg/dL (8.5-10.1); Carbon Dioxide 23 mmol/L (21.0-32.0); Chloride 113 mmol/L (98-107); Glucose 118 mg/dL (74-106); Potassium 3.4 mmoL/L (3.5-5.1); Sodium 146 mmol/L (136-145)
--- NOTE | 2018-11-08 08:15 | Pharmacy Consult Notes ---
[facility] Pharmacy VTE Monitoring - Patient Demographics Admission date: 11/07/18 Report Date: 11/08/18 Time: 08:15 Allergies/Adverse Reactions: Patient Allergies Penicillins [PENICILLINS] Allergy (Severe, Verified 09/16/18 23:47) I-HIVES Height: 1.65 m Weight: 149.2 kg Patient Problems: Current Active Problems Diabetic ketoacidosis (Acute) Acute on chronic renal failure (Acute) UTI (urinary tract infection) (Acute) Tachycardia (Acute) - VTE Risk Labs: VTE Related Lab Results Hgb 12.5 g/dL (14.1-18.0) L 11/07/18 15:15 Hct 46.6 % (42.0-52.0) 11/07/18 15:15 Plt Count 638 K/mm3 (142-424) H 11/07/18 15:15 BUN 40 mg/dL (7-18) H 11/08/18 05:26 Creatinine 2.61 mg/dL (0.70-1.30) H 11/08/18 05:26 Estimated Creat Clear 37 mL/min (50-200) 11/08/18 05:26 Was VTE Risk Assessment Performed: Yes VTE Score: 2 VTE Risk Level: Very Low Risk - Prophylaxis VTE Prophylaxis Ordered?: Yes Types of VTE Prophylaxis: TEDS Knee High Location of Applied Device: Bilateral Lower Extremeties - VTE Diagnosis Confirmed Treatment or plan recommended: Continue Current Treatment
--- NOTE | 2018-11-08 08:28 | History & Physical Report ---
*Admission Date: 11/07/18 *Chief complaint: vomiting, dysuria *History of present illness: Mr. Huber is a 38-year-old white male diabetic admitted via the emergency room in [facility]. He states yesterday he began feeling poorly and began vomiting. His blood sugar was greater than 1000 on admission to the floor. His pH was 7.15 but was 7.0 on admission. The patient has similar past admissions. He does not have a regular primary care provider. He states he used to see Dr. Katz and did have an hcc coders in [place] who prescribed his insulin. Apparently he has had a recent urinary tract infection and was seen in the ER and given a rx for cipro. He states he did not moss picker the prescription because it was too expensive. He has renal insufficiency related to his diabetes. DKA protocol was initiated. This a.m. he is more awake and alert. His glucose is down into the 130s. He states he is feeling better. [facility] History Medical History: Reports:: Diabetes Mellitus Type 1, Hyperlipidemia, Hypertension, Renal Insufficiency Denies:: Cancer, Diabetes Mellitus Type 2, MRSA Other Medical History: Reports: Other Laterality Cases: Bilateral: Tonsillectomy Other Surgeries: Yes: Other Amputation: No Fractures: No - *Social History Smoking Status: Never smoker Tobacco Type: smokeless tobacco # Packs/Day (cigarettes): 1 Alcohol Intake: former Alcohol Intake Frequency:: a few times a month Substance Use Type: denies use Occupational Status: unemployed Housing: apartment Household Members: spouse, family, children - Psychiatric History Expresses thoughts of harming self/others: None Suicide Plan Description: No Plan *Family Hx:: Cancer, Diabetes, Hyperlipidemia, Hypertension, Stroke Review of Systems - Constitutional Reports fatigue, Reports weakness - Eyes Denies blurry vision, Denies double vision - ENT Reports dry mouth, Reports nasal congestion, Reports sore throat - *Cardiovascular Reports rapid, pounding, or irregular heartbeat, Denies chest pain - *Respiratory Reports cough, Denies shortness of breath - *Gastrointestinal Reports nausea, Reports vomiting, Denies abdominal pain, Denies loose stools - *Genitourinary Reports painful urination - *Musculoskeletal Denies joint pain - *Neurologic Reports weakness, Denies headache(s), Denies dizziness Meds Home Medications Medication Instructions Recorded Confirmed Type Gabapentin [Gabapentin 800mg Tab] 800 mg PO QID 12/19/17 11/07/18 History Insulin Aspart [Novolog] 0 unit SQ DIRECTED 12/19/17 11/07/18 History insulin glargine (U- 100) 100 35 unit SQ HS ml 08/07/18 11/07/18 History unit/mL subcutaneous solution Carvedilol [Coreg 3.125mg Tablet] 3.125 mg PO BID 08/10/18 11/07/18 History Albuterol Sulfate [Proair Hfa 2 puffs IH Q4HP PRN #1 inh 09/15/18 11/07/18 Rx 90mcg/puff Inh] Lisinopril [Lisinopril 5mg Tablet] 5 mg PO DAILY 11/08/18 11/08/18 History Allergies Allergy/AdvReac Type Severity Reaction Status Date / Time Penicillins [PENICILLINS] Allergy Severe I-HIVES Verified 09/16/18 23:47 Exam Vital signs and Labs for Last 24 Hours: Temp Pulse Resp BP Pulse Ox 97.9 F 84 18 167/111 H 100 11/08/18 08:00 11/08/18 08:00 11/08/18 08:00 11/08/18 08:00 11/08/18 08:00 Laboratory Results - last 24 hr 11/07/18 15:15: WBC 12.7 H, RBC 4.19 L, Hgb 12.5 L, Hct 46.6, MCV 111.4 H, MCH 29.9, MCHC 26.8 L, RDW 14.0, Plt Count 638 H, MPV 10.4, Neut % (Auto) 77.3, Lymph % (Auto) 17.4, [place] % (Auto) 3.8, Eos % (Auto) 0.5, Baso % (Auto) 1.0, Neut # (Auto) 9.8 H, Lymph # (Auto) 2.2, [place] # (Auto) 0.5, Eos # (Auto) 0.1, Baso # (Auto) 0.1 11/07/18 15:15: Sodium 129 L, Potassium 4.7, Chloride 84 L, Carbon Dioxide 8 L*, Anion Gap 41.7 H, BUN 61 H, Creatinine 3.71 H, Estimated Creat Clear 26, Estimated GFR 19 L*, Est GFR ( Amer) 23 L, Glucose , Calcium 9.8, Total Bilirubin 0.6, AST 284 H, ALT 271 H, Alkaline Phosphatase 1399 H, Total Protein 8.1, Albumin 2.8 L, Globulin 5.3 H, Albumin/Globulin Ratio 0.5 L 11/07/18 15:15: Acetone Level Small 11/07/18 15:15: Phosphorus 8.4 H, Magnesium 2.9 H, Troponin I < 0.02 11/07/18 15:15: TSH 0.91, Free T4 Index 2.7 L, Thyroxine (T4) 6.9, T3 Uptake 39 11/07/18 15:39: Specimen Source R radial, O2 % 2lpm, ABG pH 7.09 L*, ABG pCO2 11.0 L, ABG pO2 130.9 H, ABG HCO3 3.3 L, ABG Total CO2 3.6 L, ABG O2 Saturation 98, ABG Base Excess -26.5 L, [place]ton Test Acceptable 11/07/18 16:35: Urine Color Straw, Urine Appearance Sl cloudy, Urine pH 6.0, Ur Specific Bynum 1.020, Urine Protein 2+, Urine Glucose (UA) 3+, Urine Ketones 3+, Urine Blood 2+, Urine Nitrate Negative, Urine Bilirubin Negative, Urine Urobilinogen 0.2, Ur Leukocyte Esterase Trace, Urine RBC Occasional, Urine WBC 50-100, Ur Squamous Epith Cells None, Urine Bacteria Trace 11/07/18 17:38: Lactate 5.0 H 11/07/18 18:28: Specimen Source Left radial, O2 % 21, ABG pH 7.15 L*, ABG pCO2 12.0 L, ABG pO2 192.4 H, ABG HCO3 4.0 L, ABG Total CO2 4.4 L, ABG O2 Saturation 99, ABG Base Excess -24.9 L, [place]ton Test Acceptable 11/07/18 18:40: Sodium 137, Potassium 5.1, Chloride 98, Carbon Dioxide 5 L* D, Anion Gap 39.1 H, BUN 55 H, Creatinine 3.03 H, Estimated Creat Clear 31, Estimated GFR 24 L, Est GFR ( Amer) 28 L D, Glucose 1056 H*, Calcium 7.8 L D, Acetone Level Small 11/07/18 19:50: Random Glucose 997 H* D 11/07/18 21:33: POC Glucose 506 H* 11/07/18 22:00: POC Glucose 462 H* 11/07/18 22:01: Sodium 145, Potassium 3.5 D, Chloride 108 H, Carbon Dioxide 13 L D, Anion Gap 27.5 H, BUN 48 H, Creatinine 3.03 H, Estimated Creat Clear 32, Estimated GFR 24 L, Est GFR ( Amer) 28 L, Glucose 521 H* D, Calcium 7.5 L 11/07/18 22:01: Lactate 5.4 H 11/07/18 22:32: POC Glucose 382 H* 11/07/18 23:30: POC Glucose 267 H 11/08/18 00:30: Sodium 146 H, Potassium 3.2 L, Chloride 111 H, Carbon Dioxide 20 L D, Anion Gap 18.2 H, BUN 44 H, Creatinine 2.84 H, Estimated Creat Clear 34, Estimated GFR 25 L, Est GFR ( Amer) 31 L, Glucose 214 H D, Calcium 7.8 L 11/08/18 00:30: Lactate 3.3 H 11/08/18 00:33: POC Glucose 201 H 11/08/18 01:51: POC Glucose 115 H 11/08/18 02:30: Sodium 146 H, Potassium 3.6, Chloride 112 H, Carbon Dioxide 22, Anion Gap 15.6 H, BUN 42 H, Creatinine 2.64 H, Estimated Creat Clear 37, Estimated GFR 28 L, Est GFR ( Amer) 33 L, Glucose 111 H D, Calcium 7.9 L 11/08/18 02:38: POC Glucose 104 11/08/18 04:35: POC Glucose 81 11/08/18 05:26: Sodium 146 H, Potassium 3.4 L, Chloride 113 H, Carbon Dioxide 23 , Anion Gap 13.4, BUN 40 H, Creatinine 2.61 H, Estimated Creat Clear 37, Estimated GFR 28 L, Est GFR ( Amer) 34 L, Glucose 118 H, Calcium 7.6 L, Acetone Level None detected 11/08/18 05:34: POC Glucose 106 11/08/18 06:36: POC Glucose 93 11/08/18 08:00: POC Glucose 133 H I & O for Last 24 hours: Intake & Output 11/05/18 11/06/18 11/07/18 11/08/18 11:59 11:59 11:59 11:59 Intake Total 3450 / 3450 Output Total 3300 / 3300 Balance 150 / 150 Weight 328 lb 14.875 oz - Constitutional no acute distress - *Routine HEENT Exam Head: Present: normocephalic Eye: Present: EOMI, PERRL ENT: Present: mucous membranes dry - *Routine Neck Exam Present: supple. Absent: lymphadenopathy - *Routine Respiratory Exam Present: CTA bilaterally - *Routine Cardiovascular Exam Present: RRR - *Routine Abdominal Exam Present: soft, normoactive bowel sounds. Absent: tenderness - *Routine Extremities Exam Present: edema (bilateral LE's). Absent: cyanosis, clubbing - *Routine Skin Exam Present: warm. Absent: rash - *Routine Neurological Exam Present: alert, oriented X3 H&P: Result - Impressions CXR - nothing acute Assessment and Plan (1) Diabetic ketoacidosis Current visit: Yes Status: Acute Qualifiers: Diabetes mellitus type: type 1 Diabetes mellitus complication detail: without coma Qualified Code(s): E10.10 - Type 1 diabetes mellitus with ketoacidosis without coma Category: Medical Code(s): E13.10 - Other specified diabetes mellitus with ketoacidosis without coma (2) Tachycardia Current visit: Yes Status: Acute Category: Medical Code(s): R00.0 - Tachycardia, unspecified (3) Acute on chronic renal failure Current visit: Yes Status: Acute Qualifiers: Acute renal failure type: unspecified Chronic kidney disease stage: unspecified stage Qualified Code(s): N17.9 - Acute kidney failure, unspecified; N18.9 - Chronic kidney disease, unspecified Category: Medical Code(s): N17.9 - Acute kidney failure, unspecified; N18.9 - Chronic kidney disease, unspecified (4) UTI (urinary tract infection) Current visit: Yes Status: Acute Qualifiers: Urinary tract infection type: site unspecified Hematuria presence: without hematuria Qualified Code(s): N39.0 - Urinary tract infection, site not specified Category: Medical Code(s): N39.0 - Urinary tract infection, site not specified (5) Hypertension Current visit: No Status: Chronic Qualifiers: Hypertension type: essential hypertension Qualified Code(s): I10 - Essential (primary) hypertension Category: Medical Code(s): I10 - Essential (primary) hypertension - Assessment and plan all Dx Assessment and Plan for all problems:: Patient has no acetone detected at this time. His blood sugars have improved. His blood pressure is high therefore we will restart lisinopril and continue his carvedilol. He is currently on Rocephin for UTI and we are awaiting urine culture results. Patient is on 2 sets of IV fluids. Will discuss this with Dr. anderson.
[2018-11-08 09:17] LABS: Calcium 7.6 mg/dL (8.5-10.1)
[2018-11-08 16:07] LABS: Anion Gap 12.7 mEq/L (5-15); Calcium 7.7 mg/dL (8.5-10.1); Potassium 4.7 mmoL/L (3.5-5.1)
[2018-11-08 21:49] LABS: Anion Gap 15.1 mEq/L (5-15); Calcium 7.7 mg/dL (8.5-10.1); Potassium 4.1 mmoL/L (3.5-5.1)
--- NOTE | 2018-11-09 08:14 | Progress Note ---
Internal Medicine - PN: Subj *Date: 11/09/18 *Time: 08:11 Interval history: Patient states he is feeling better this morning. He slept well throughout the night and ate a good breakfast. His glucose this am was less than 200. He states he does have some abdominal pain today, but no vomiting. He is anxious to go home. Exam Vital signs and Labs for Last 24 Hours: Temp Pulse Resp BP Pulse Ox 98.8 F 78 15 147/89 H 100 11/09/18 04:01 11/09/18 04:01 11/09/18 04:01 11/09/18 04:11/09/18 04:01 Laboratory Results - last 24 hr 11/07/18 15:15: Carbon Dioxide 8 L*, Creatinine 3.71 H, Glucose 1357 H* 11/07/18 18:40: Sodium 137, Potassium 5.1, Chloride 98, Carbon Dioxide 5 L* D, Anion Gap 39.1 H, BUN 55 H, Creatinine 3.03 H, Estimated Creat Clear 31, Estimated GFR 24 L, Est GFR ( Amer) 28 L D, Glucose 1056 H* D, Calcium 7.8 L D, Acetone Level Small 11/07/18 19:01: POC Glucose > 600 H* 11/07/18 20:11: POC Glucose > 600 H* 11/08/18 08:00: POC Glucose 133 H 11/08/18 08:55: Sodium 141, Potassium 4.0, Chloride 108 H, Carbon Dioxide 22, Anion Gap 15.0, BUN 34 H, Creatinine 2.51 H, Estimated Creat Clear 35, Estimated GFR 29 L, Est GFR ( Amer) 35 L, Glucose 218 H D, Calcium 7.6 L 11/08/18 10:05: POC Glucose 196 H 11/08/18 11:15: POC Glucose 209 H 11/08/18 15:50: Sodium 133 L, Potassium 4.7, Chloride 102, Carbon Dioxide 23, Anion Gap 12.7, BUN 29 H, Creatinine 2.27 H, Estimated Creat Clear 43, Estimated GFR 33 L, Est GFR ( Amer) 40 L, Glucose 230 H, Calcium 7.7 L 11/08/18 16:24: POC Glucose 243 H 11/08/18 18:33: Acetone Level None detected 11/08/18 21:04: POC Glucose 249 H 11/08/18 21:30: Sodium 131 L, Potassium 4.1, Chloride 100, Carbon Dioxide 20 L, Anion Gap 15.1 H, BUN 27 H, Creatinine 2.11 H, Estimated Creat Clear 46, Estimated GFR 36 L, Est GFR ( Amer) 43 L, Glucose 269 H, Calcium 7.7 L 11/09/18 03:18: POC Glucose 115 H I & O for Last 24 hours: Intake & Output 11/06/18 11/07/18 11/08/18 11/09/18 11:59 11:59 11:59 11:59 Intake Total 3930 / 3930 3210 / 3210 Output Total 3300 / 3300 Balance 630 / 630 3210 / 3210 Weight 149 lb 2 oz Microbiology Reports for the Last 24 Hours: Microbiology 11/07/18 16:35 Urine,Clean Catch Urine Culture - Preliminary NO GROWTH AFTER 24 HOURS - Constitutional no acute distress - *Routine Respiratory Exam Present: CTA bilaterally - *Routine Cardiovascular Exam Present: RRR - *Routine Abdominal Exam Present: soft, normoactive bowel sounds. Absent: tenderness - *Routine Extremities Exam Absent: cyanosis, clubbing, edema - *Routine Neurological Exam Present: alert, oriented X3 Assessment and Plan (1) Diabetic ketoacidosis Current visit: Yes Status: Acute Qualifiers: Diabetes mellitus type: type 1 Diabetes mellitus complication detail: without coma Qualified Code(s): E10.10 - Type 1 diabetes mellitus with ketoacidosis without coma Category: Medical Code(s): E13.10 - Other specified diabetes mellitus with ketoacidosis without coma (2) Tachycardia Current visit: Yes Status: Acute Category: Medical Code(s): R00.0 - Tachycardia, unspecified (3) Acute on chronic renal failure Current visit: Yes Status: Acute Qualifiers: Acute renal failure type: unspecified Chronic kidney disease stage: u nspecified stage Qualified Code(s): N17.9 - Acute kidney failure, unspecified; N18.9 - Chronic kidney disease, unspecified Category: Medical Code(s): N17.9 - Acute kidney failure, unspecified; N18.9 - Chronic kidney disease, unspecified (4) UTI (urinary tract infection) Current visit: Yes Status: Acute Qualifiers: Urinary tract infection type: site unspecified Hematuria presence: without hematuria Qualified Code(s): N39.0 - Urinary tract infection, site not specified Category: Medical Code(s): N39.0 - Urinary tract infection, site not specified (5) Hypertension Current visit: No Status: Chronic Qualifiers: Hypertension type: essential hypertension Qualified Code(s): I10 - Essential (primary) hypertension Category: Medical Code(s): I10 - Essential (primary) hypertension - Assessment and plan all Dx Assessment and Plan for all problems:: Urine culture showed no growth. Will recheck labs this morning. If normal, will discuss disposition with Dr. Mesa.
[2018-11-09 09:46] LABS: Basophils % 0.3 % (0.1-2.0); Eosinophils # 0.2 K/mm3 (0.0-0.4); Eosinophils % 2.7 % (0.1-12.0); Hematocrit 31.6 % (42.0-52.0); Hemoglobin 9.7 g/dL (14.1-18.0); Lymphocytes # 2.2 K/mm3 (0.7-4.5); Lymphocytes % 24.2 % (10-50); Mean Corpuscular HGB Conc 30.6 g/dL (31.8-35.4); Mean Corpuscular Hemoglobin 30.2 pg (27.0-31.2); Mean Corpuscular Volume 98.4 fl (80-94); Mean Platelet Volume 8.2 fl (7.4-10.4); Monocytes # 0.4 K/mm3 (0.1-1.0); Monocytes % 4.8 % (1.7-9.3); Platelet Count 311 K/mm3 (142-424); Red Blood Count 3.22 M/mm3 (4.60-6.20); Red Cell Distribution Width 14.5 % (11.5-17.5); White Blood Count 8.9 K/mm3 (4.8-10.8)
[2018-11-09 09:59] LABS: Albumin Level 1.9 gm/dL (3.4-5.0); Albumin/Globulin Ratio 0.5 (1.1-1.8); Anion Gap 15.1 mEq/L (5-15); Bilirubin,Total 0.2 mg/dL (0.2-1.0); Calcium 7.7 mg/dL (8.5-10.1); Globulin 3.9 gm/dl (1.3-3.2); Potassium 5.1 mmoL/L (3.5-5.1); Total Protein,Serum 5.8 gm/dL (6.4-8.2)
[2018-11-09 11:36] LABS: Microscopic, Urine URINE MICROSCOPIC (MICROSCOPIC)
[2018-11-09 11:38] LABS: Appearance,Urine CLOUDY (Clear); Bilirubin,Urine Negative (Negative); Blood, Urine 1+ (Negative); Color,Urine STRAW (Yellow); Glucose,Urine (UA) 3+ (Negative); Ketones,Urine Negative (Negative); Leukocyte Esterase,Urine 3+ (Negative); Protein,Urine 1+ (Negative); Urobilinogen,Urine 0.2 EU/dl (0.2)
[2018-11-09 12:33] LABS: Bacteria,Urine Trace /lpf; WBC,Urine 20-50 #/hpf (0-3)
[2018-11-09 12:34] LABS: RBC,Urine Occasional #/hpf (0-3)
--- NOTE | 2018-11-12 12:59 | Discharge Summary ---
General - General Admission date:: 11/07/18 Discharge date: 11/09/18 HPI HPI: Mr. Huber is a 38-year-old white male diabetic admitted via the emergency room in [facility]. He states yesterday he began feeling poorly and began vomiting. His blood sugar was greater than 1000 on admission to the floor. His pH was 7.15 but was 7.0 on admission. The patient has similar past admissions. He does not have a regular primary care provider. He states he used to see Dr. Katz and did have an solutions executive security in [place] who prescribed his insulin. Apparently he has had a recent urinary tract infection and was seen in the ER and given a rx for cipro. He states he did not pick up worker the prescription because it was too expensive. He has renal insufficiency related to his diabetes. DKA protocol was initiated. This a.m. he is more awake and alert. His glucose is down into the 130s. He states he is feeling better. Hospital Course Hospital Course: The patient's chest x-ray showed nothing acute. On a repeat acetone level, there was none detected. His glucose was improving and he was able to tolerate a diet. He was restarted on his lisinopril and carvedilol. He was started on Rocephin for a possible UTI. This as well as IV fluids were continued. His potassium was replaced. The patient's first urine culture showed no growth of bacteria. A repeat urine cx did show growth of yeast. His renal function and potassium improved. His LFTs were all elevated. He was stable to be discharged home but will need outpatient follow-up for management of his diabetes, blood pressure, and elevated LFTs. Objective Vital signs: Temp Pulse Resp BP Pulse Ox 98.4 F 82 16 143/89 H 98 11/09/18 12:00 11/09/18 12:00 11/09/18 12:00 11/09/18 12:00 11/09/18 12:00 Narrative: - Constitutional no acute distress - *Routine HEENT Exam Head: Present: normocephalic Eye: Present: EOMI, PERRL ENT: Present: mucous membranes dry - *Routine Neck Exam Present: supple. Absent: lymphadenopathy - *Routine Respiratory Exam Present: CTA bilaterally - *Routine Cardiovascular Exam Present: RRR - *Routine Abdominal Exam Present: soft, normoactive bowel sounds. Absent: tenderness - *Routine Extremities Exam Present: edema (bilateral LE's). Absent: cyanosis, clubbing - *Routine Skin Exam Present: warm. Absent: rash - *Routine Neurological Exam Present: alert, oriented X3 DS: Diagnosis - Discharge Diagnosis (1) Diabetic ketoacidosis Status: Acute (2) Tachycardia Status: Acute (3) Acute on chronic renal failure Status: Acute (4) UTI (urinary tract infection) Status: Acute (5) Hypertension Status: Chronic (6) Abnormal liver function tests Status: Acute Discharge Plan - Patient Discharge Instructions ACTIVITY: Continue current activity DIET: diabetic diet Patient Instructions: DI for Urinary Tract Infection (UTI), DI for Diabetic Ketoacidosis - Follow up Plan Unknown provider or service follow up:: 11/09/18 14:25 Endocrinology Disposition: Home, [facility] Medications: Home Medications Medication Instructions Recorded Confirmed Type Insulin Aspart [Novolog] 0 unit SQ DIRECTED 12/19/17 11/07/18 History insulin glargine (U- 100) 100 35 unit SQ HS ml 08/07/18 11/07/18 History unit/mL subcutaneous solution Carvedilol [Coreg 3.125mg Tablet] 3.125 mg PO BID 08/10/18 11/07/18 History Albuterol Sulfate [Proair Hfa 2 puffs IH Q4HP PRN #1 inh 09/15/18 11/07/18 Rx 90mcg/puff Inh] Gabapentin [Neurontin 800mg Tab] 800 mg PO QID 11/08/18 11/08/18 History Lisinopril [Lisinopril 5mg Tablet] 5 mg PO DAILY 11/08/18 11/08/18 History Prescriptions/Medication Reconciliation: Continue insulin glargine (U- 100) 100 unit/mL subcutaneous solution 35 unit SQ HS ml Carvedilol [Coreg 3.125mg Tablet] 3.125 mg PO BID Albuterol Sulfate [Proair Hfa 90mcg/puff Inh] 2 puffs IH Q4HP PRN #1 inh PRN Reason: Shortness Of Breath Or Wheezing Gabapentin [Neurontin 800mg Tab] 800 mg PO QID Insulin Aspart [Novolog] 0 unit SQ DIRECTED Lisinopril [Lisinopril 5mg Tablet] 5 mg PO DAILY
== END 2018-11-09 17:43 | disposition home or self-care (01) | DRG 638 ==
LOC: ER 15:19 → 2ND 18:01
PROVIDERS: ADMIT Family Medicine; ATTEND Family Medicine
CPT/HCPCS: J2405

== ENCOUNTER 2018-11-17 00:57 | Inpatient (IN) ==
[2018-11-17 01:33] LABS: VBG Base Excess -4.7 mmol/L (-2.4-2.3); VBG HCO3 21.1 mmol/L (23-30); VBG Oxygen Saturation 71.2 % (50-70); VBG PCO2 40.1 mmol/L (35-51); VBG PH 7.34 mmol/L (7.31-7.41); VBG PO2 37.7 mmol/L (28-40); VBG Total CO2 22.3 mmol/L (23-27)
[2018-11-17 01:39] LABS: Basophils # 0.1 K/mm3 (0-0.2); Basophils % 0.5 % (0.1-2.0); Eosinophils # 0.2 K/mm3 (0.0-0.4); Eosinophils % 1.5 % (0.1-12.0); Hematocrit 34.5 % (42.0-52.0); Hemoglobin 10.4 g/dL (14.1-18.0); Lymphocytes # 2.6 K/mm3 (0.7-4.5); Mean Corpuscular Hemoglobin 31.5 pg (27.0-31.2); Mean Corpuscular Volume 104.8 fl (80-94); Mean Platelet Volume 7.9 fl (7.4-10.4); Monocytes # 0.6 K/mm3 (0.1-1.0); Monocytes % 4.9 % (1.7-9.3); Neutrophils # 8.8 K/mm3 (1.8-7.8); Neutrophils % 72.1 % (37.0-80.0); Platelet Count 380 K/mm3 (142-424); Red Cell Distribution Width 14.6 % (11.5-17.5); White Blood Count 12.2 K/mm3 (4.8-10.8)
[2018-11-17 01:44] LABS: Acetone, Serum (Rapid) None Detected (None Detect)
[2018-11-17 01:49] LABS: Anion Gap 16.5 mEq/L (5-15); Blood Urea Nitrogen 37 mg/dL (7-18); Calcium 8.7 mg/dL (8.5-10.1); Carbon Dioxide 24 mmol/L (21.0-32.0); Chloride 88 mmol/L (98-107); Potassium 5.5 mmoL/L (3.5-5.1); Sodium 123 mmol/L (136-145)
[2018-11-17 02:02] LABS: Glucose 1101 mg/dL (74-106)
[2018-11-17 02:10] LABS: Microscopic, Urine URINE MICROSCOPIC (MICROSCOPIC)
[2018-11-17 02:11] LABS: Appearance,Urine CLOUDY (Clear); Bilirubin,Urine Negative (Negative); Blood, Urine TRACE-L (Negative); Color,Urine YELLOW (Yellow); Glucose,Urine (UA) 3+ (Negative); Ketones,Urine Negative (Negative); Leukocyte Esterase,Urine 1+ (Negative); Protein,Urine TRACE (Negative); Specific Gravity, Urine <= 1.005 (1.005-1.030); Urobilinogen,Urine 0.2 EU/dl (0.2)
[2018-11-17 02:16] LABS: WBC,Urine TNTC #/hpf (0-3)
--- NOTE | 2018-11-17 02:20 | Emergency Department Note ---
ED Disposition Clinical Impression: UTI (urinary tract infection), Hyperglycemia due to type 1 diabetes mellitus, Dehydration Disposition: Admitted As Inpatient Condition on Discharge: Good Time of Disposition: 06:05 - Critical Care Critical Care Time: No Attestation: On 11/17/18, the high probability of a clinically significant, sudden or life threatening deterioration of the following system(s) required my full and direct attention, intervention and personal management. The time I documented below is in addition to time spent performing reported procedures but includes the following listed in this critical care notation. Medical Decision Making - Medical Records Medical records reviewed: Yes: I reviewed the patient's medical records. - Michael Inquiry Pt receiving controlled substance: No Michael was queried for this patient: No Vital Signs: 11/17/18 01:02 11/17/18 06:01 11/17/18 06:12 Temperature 97.8 F 98.7 F 97.6 F Temperature Source Oral Oral Oral Pulse Rate 82 Pulse Rate [Left Radial] 79 Pulse Rate [Right Brachial] 94 H Respiratory Rate 17 20 18 Blood Pressure 185/107 H Blood Pressure [Left Arm] 171/100 H Blood Pressure [Right Arm] 197/106 H Blood Pressure Mean [Left Arm] 123 Blood Pressure Mean [Right Arm] 136 Blood Pressure Source [Left Arm] Automatic Cuff Blood Pressure Source [Right Arm] Automatic Cuff Blood Pressure Position Sitting Blood Pressure Position [Left Arm] Supine Blood Pressure Position [Right Arm] Sitting 02 Sat by Pulse Oximetry 100 100 Oxygen Delivery Method Room Air Room Air Room Air - Lab Data Lab Results 11/17/18 01:14: VBG pH 7.34, VBG pCO2 40.1, VBG pO2 37.7, VBG HCO3 21.1 L, VBG Total CO2 22.3 L, VBG O2 Saturation 71.2 H, VBG Base Excess -4.7 L 11/17/18 01:28: WBC 12.2 H, RBC 3.30 L, Hgb 10.4 L, Hct 34.5 L, MCV 104.8 H, MCH 31.5 H, MCHC 30.0 L, RDW 14.6, Plt Count 380, MPV 7.9, Neut % (Auto) 72.1, Lymph % (Auto) 21.0, Haines % (Auto) 4.9, Eos % (Auto) 1.5, Baso % (Auto) 0.5, Neut # (Auto) 8.8 H, Lymph # (Auto) 2.6, Haines # (Auto) 0.6, Eos # (Auto) 0.2, Baso # (Auto) 0.1 11/17/18 01:28: Sodium 123 L, Potassium 5.5 H, Chloride 88 L, Carbon Dioxide 24, Anion Gap 16.5 H, BUN 37 H, Creatinine 2.63 H, Estimated Creat Clear 36, Estimated GFR 28 L, Est GFR ( Amer) 34 L, Glucose 1101 H*, Calcium 8.7, Acetone Level None detected 11/17/18 02:07: Urine Color Yellow, Urine Appearance Cloudy, Urine pH 6.0, Ur Specific [place] <= 1.005, Urine Protein Trace, Urine Glucose (UA) 3+, Urine Ketones Negative, Urine Blood Trace-l, Urine Nitrate Negative, Urine Bilirubin Negative, Urine Urobilinogen 0.2, Ur Leukocyte Esterase 1+ A, Urine RBC 3-5, Urine WBC Tntc 11/17/18 04:40: Sodium 129 L, Potassium 5.1, Chloride 95 L, Carbon Dioxide 21, Anion Gap 18.1 H, BUN 35 H, Creatinine 2.39 H, Estimated Creat Clear 39, Estimated GFR 31 L, Est GFR ( Amer) 37 L, Glucose 721 H* D, Calcium 7.8 L D 11/17/18 06:10: Random Glucose 776 H* Result diagrams: 11/17/18 01:28 11/17/18 04:40 Orders (Tests/Meds): ED MEDICATIONS Generic Name Dose Route Start Last Admin Trade Name Hermila PRN Reason Stop Dose Admin Acetaminophen 650 mg 11/17/18 05:47 Acetaminophen 325mg Tab PO 12/17/18 05:46 Q4HP PRN As Needed for Fever or Pain Albuterol Sulfate 2 puffs 11/17/18 05:47 Proventil-Hfa 90mcg/Puff Inhaler IH 12/17/18 05:46 Q4HP PRN Shortness Of Breath Or Wheezing Carvedilol 3.125 mg 11/17/18 09:00 Coreg 3.125mg Tablet PO 12/17/18 08:59 BID CASTILLO Fluconazole 200 mg 11/17/18 09:00 Diflucan 200mg Tablet PO 11/24/18 08:59 DAILY CASTILLO Protocol Potassium Chloride/Sodium Chloride 1,000 mls @ 250 mls/hr 11/17/18 05:47 11/17/18 06:24 Kcl 20 Meq In Ns 1,000 Ml Iv Soln IV 12/17/18 05:46 250 mls/hr .Q4H CASTILLO Administration Ceftriaxone Sodium 2 gm/ 100 mls @ 200 mls/hr 11/18/18 02:30 Sodium Chloride IV 12/01/18 02:29 Q24H CASTILLO Protocol Insulin Glargine 35 unit 11/17/18 21:00 Lantus Insulin 100units/Ml 10ml Vial SQ 12/17/18 20:59 HS CASTILLO Insulin Human Lispro 0 unit 11/17/18 05:47 Humalog 100 Units/Ml 3ml Vial (Ssi) SQ 12/17/18 05:46 Q6H CASTILLO Protocol Lisinopril 5 mg 11/17/18 09:00 Zestril 5mg Tablet PO 12/17/18 08:59 DAILY CASTILLO Miscellaneous 1 unit 11/17/18 05:47 Aerochamber/Optihaler MC 11/17/18 05:48 ONCE ONE Non-Formulary Medication 800 mg 11/17/18 09:00 Gabapentin [Neurontin 800mg Tab] PO 12/17/18 08:59 QID CASTILLO Discontinued Medications Generic Name Dose Route Start Last Admin Trade Name Freq PRN Reason Stop Dose Admin Fluconazole 200 mg 11/17/18 09:00 11/17/18 04:15 Diflucan 200mg Tablet PO 11/24/18 08:59 200 mg DAILY CASTILLO Administration Protocol Sodium Chloride 1,000 mls @ 999 mls/hr 11/17/18 01:30 11/17/18 01:29 Sod Chlor 0.9% 1000ml Bag IV 11/17/18 02:30 999 mls/hr .Q1H1M CASTILLO Administration Sodium Chloride 1,000 mls @ 999 mls/hr 11/17/18 01:30 11/17/18 02:24 Sod Chlor 0.9% 1000ml Bag IV 11/17/18 02:30 999 mls/hr .Q1H1M CASTILLO Administration Ceftriaxone Sodium 2 gm/ 100 mls @ 200 mls/hr 11/17/18 02:30 11/17/18 02:31 Sodium Chloride IV 12/01/18 02:29 200 mls/hr Q24H CASTILLO Administration Protocol Insulin Glargine 35 unit 11/17/18 21:00 Lantus Insulin 100units/Ml 10ml Vial SQ 12/17/18 20:59 HS [facility] Insulin Glargine 35 unit 11/17/18 05:15 11/17/18 05:11 Lantus Insulin 100units/Ml 10ml Vial SQ 11/17/18 05:16 35 unit ONCE ONE Administration Insulin Human Lispro 15 unit 11/17/18 05:59 Humalog 100 Units/Ml 3ml Vial (Ssi) SQ 11/17/18 06:00 ONCE ONE Insulin Human Regular 15 unit 11/17/18 02:10 11/17/18 02:22 Humulin R Insulin 100 Units/Ml 10ml Vial IVP 11/17/18 02:11 15 unit ONCE ONE Administration Sodium Chloride 10 ml 11/17/18 01:12 Saline Flush 10ml Syringe IV 12/17/18 01:11 NEEDED PRN Maintain IV Site ORDERS Category Date Time Status Basic Metabolic Panel Timed Lab 11/17/18 07:40 Ordered UA [Urinalysis and Microscopic] Stat Lab 11/17/18 02:07 Ordered Urine Culture Stat Micro 11/17/18 02:07 Received VBG [Venous Blood Gas] Stat RT 11/17/18 01:14 Ordered General Adult HPI - General Chief complaint: Urogenital-Male Stated complaint: Vomiting Time Seen by Provider: 11/17/18 01:05 Mode of Arrival: Ambulatory Limitations: No Limitations Description of Symptoms (Recalled from ER Triage Doc. by RN): Burning with urination. Pt home caths and states his urine was milkly colored. He reports pain in his bladder area. - History of Present Illness HPI narrative: dysuria, frequency, high blood sugar. History of non-compliance - Related Data Home Medications Medication Instructions Recorded Confirmed RX: Insulin Aspart [Novolog] 0 unit SQ DIRECTED 12/19/17 11/17/18 insulin glargine (U- 100) 100 35 unit SQ HS ml 08/07/18 11/17/18 unit/mL subcutaneous solution RX: Carvedilol [Coreg 3.125mg 3.125 mg PO BID 08/10/18 11/17/18 Tablet] RX: Gabapentin [Neurontin 800mg 800 mg PO QID 11/08/18 11/17/18 Tab] RX: Lisinopril [Lisinopril 5mg 5 mg PO DAILY 11/08/18 11/17/18 Tablet] Previous Rx's Medication Instructions Recorded RX: Albuterol Sulfate [Proair Hfa 2 puffs IH Q4HP PRN #1 inh 09/15/18 90mcg/puff Inh] Allergies Allergy/AdvReac Type Severity Reaction Status Date / Time Penicillins [PENICILLINS] Allergy Severe I-HIVES Verified 11/17/18 01:09 [facility] History - Hepatitis A Screen Drug use history?: No High risk sexual behaviors?: No History of sexually transmitted infection?: No Currently employed?: Yes Childcare worker?: No Do you have indoor plumbing?: Yes Do you have electricity?: Yes Attestation statement:: This patient has been screened for Hepatitis A risk factors. I have reviewed the patient's past medical history: No Medical History: Reports:: Diabetes Mellitus Type 1, Hyperlipidemia, Hypertension, Renal Insufficiency Denies:: Cancer, Diabetes Mellitus Type 2, MRSA Other Medical History: Reports: Other Comment: high heart rate Laterality Cases: Bilateral: Tonsillectomy Other Surgeries: Yes: No Previous Surgery, Other Amputation: No Fractures: No - Social History Smoking Status: Never smoker Tobacco Type: smokeless tobacco # Packs/Day (cigarettes): 1 Alcohol Intake: former Alcohol Intake Frequency:: a few times a month Substance Use Type: denies use Occupational Status: unemployed Housing: apartment Household Members: spouse, family, children - Psychiatric History Expresses thoughts of harming self/others: None Suicide Plan Description: No Plan Family Hx:: Cancer, Diabetes, Hyperlipidemia, Hypertension, Stroke ROS Obtained: Yes All systems reviewed & no additional complaints - Constitutional Constitutional: Reports system reviewed and no additional complaints, except as docu, Reports lethargy, Reports malaise - Eyes Eyes: Denies change in vision - ENT Ears, Nose, Mouth, and Throat: Reports system reviewed and no additional complaints, except as docu, Denies sore throat, Denies throat swelling - Cardiovascular Cardiovascular: Reports system reviewed and no additional complaints, except as docu, Denies chest pain, Denies chest pain at rest, Denies chest pain with activity, Denies palpitations, Denies rapid heart rate, Denies slow heart rate, Denies fainting - Respiratory Respiratory: Yes system reviewed and no additional complaints, except as docu, No chest congestion, No cough - Gastrointestinal Gastrointestingal: Reports: system reviewed and no additional complaints, except as docu, diarrhea, nausea, vomiting. Denies: abdominal pain - Genitourinary Male Genitourinary: Reports system reviewed and no additional complaints, except as docu, Denies difficulty urinating, Denies flank pain, Denies hematuria - Musculoskeletal Musculoskeletal: Reports system reviewed and no additional complaints, except as docu, Denies joint stiffness, Denies limited range of motion, Denies muscle cramps, Denies stiffness, Denies tingling - Integumentary/Breasts Skin/Breast: Reports system reviewed and no additional complaints, except as docu, Denies rash, Denies skin pain - Neurologic Neurologic: Reports system reviewed and no additional complaints, except as docu, Denies confusion, Denies headache(s), Denies syncope, Denies tingling - Hematologic/Lymphatic Henatologic/Lymphatic: Reports system reviewed and no additional complaints, except as docu, Denies easy bleeding, Denies easy bruising, Denies ly mphadenopathy Physical Exam - General General appearance: alert, in no apparent distress, lethargic - Head Head exam: atraumatic, normocephalic, normal inspection - Eye Eye exam: Present: normal appearance, PERRL, EOMI - ENT ENT exam: Present: normal exam, normal oropharynx, mucous membranes moist, TM's normal bilaterally, normal external ear exam - Neck Neck exam: Present: normal inspection, full ROM, trachea midline. Absent: meningismus, lymphadenopathy - Chest Chest inspection: Present: normal inspection, symmetric chest wall rise. Absent: tenderness - Respiratory Respiratory exam: Present: normal lung sounds bilaterally. Absent: respiratory distress - Cardiovascular Cardiovascular exam: Present: regular rate, normal rhythm. Absent: JVD - Abdominal Exam Abdominal exam: Present: soft, normal bowel sounds. Absent: distention, tenderness, guarding - Extremities Exam Extremities exam: Present: normal inspection, full ROM, normal capillary refill. Absent: calf tenderness - Back Exam Back exam: Present: normal inspection. Absent: tenderness - Neurological Exam Neurological exam: Present: alert, oriented X3 - Psychiatric Psychiatric exam: Present: depressed - Skin Skin exam: Present: warm, dry. Absent: rash
[2018-11-17 05:01] LABS: Anion Gap 18.1 mEq/L (5-15); Potassium 5.1 mmoL/L (3.5-5.1)
[2018-11-17 05:03] LABS: Calcium 7.8 mg/dL (8.5-10.1)
[2018-11-17 07:36] LABS: Calcium 7.9 mg/dL (8.5-10.1)
--- NOTE | 2018-11-17 08:59 | Progress Note ---
Internal Medicine - PN: Subj *Date: 11/17/18 *Time: 08:56 Interval history: This 38-year-old severe diabetic is admitted with hyperglycemia and hypertension. He has a chronic urinary tract infant. He was discharged recently from the hospital and returns at this time he was not seen at the [facility] where he is followed for his diabetes. He states that he did not call them and they do not call him. He has no primary care provider. On this admission his blood sugars are more elevated but he is not specifically in DKA. He is alert at this admission. We are following his labs. He is receiving IV fluids. He is on high dose sliding scale. He has received his glargine insulin. His blood pressure is skyhigh Exam Vital signs and Labs for Last 24 Hours: Temp Pulse Resp BP Pulse Ox 97.6 F 75 18 171/100 H 100 11/17/18 06:12 11/17/18 08:34 11/17/18 06:12 11/17/18 06:12 11/17/18 06:12 Laboratory Results - last 24 hr 11/17/18 01:14: VBG pH 7.34, VBG pCO2 40.1, VBG pO2 37.7, VBG HCO3 21.1 L, VBG Total CO2 22.3 L, VBG O2 Saturation 71.2 H, VBG Base Excess -4.7 L 11/17/18 01:28: WBC 12.2 H, RBC 3.30 L, Hgb 10.4 L, Hct 34.5 L, MCV 104.8 H, MCH 31.5 H, MCHC 30.0 L, RDW 14.6, Plt Count 380, MPV 7.9, Neut % (Auto) 72.1, Lymph % (Auto) 21.0, [place] % (Auto) 4.9, Eos % (Auto) 1.5, Baso % (Auto) 0.5, Neut # (Auto) 8.8 H, Lymph # (Auto) 2.6, [place] # (Auto) 0.6, Eos # (Auto) 0.2, Baso # (Auto) 0.1 11/17/18 01:28: Sodium 123 L, Potassium 5.5 H, Chloride 88 L, Carbon Dioxide 24, Anion Gap 16.5 H, BUN 37 H, Creatinine 2.63 H, Estimated Creat Clear 36, Estimated GFR 28 L, Est GFR ( Amer) 34 L, Glucose 1101 H*, Calcium 8.7, Acetone Level None detected 11/17/18 02:07: Urine Color Yellow, Urine Appearance Cloudy, Urine pH 6.0, Ur Specific [place] <= 1.005, Urine Protein Trace, Urine Glucose (UA) 3+, Urine Ketones Negative, Urine Blood Trace-l, Urine Nitrate Negative, Urine Bilirubin Negative, Urine Urobilinogen 0.2, Ur Leukocyte Esterase 1+ A, Urine RBC 3-5, Urine WBC Tntc 11/17/18 04:40: Sodium 129 L, Potassium 5.1, Chloride 95 L, Carbon Dioxide 21, Anion Gap 18.1 H, BUN 35 H, Creatinine 2.39 H, Estimated Creat Clear 39, Estimated GFR 31 L, Est GFR ( Amer) 37 L, Glucose 721 H* D, Calcium 7.8 L D 11/17/18 06:10: Random Glucose 776 H* 11/17/18 06:55: Sodium 131 L, Potassium 6.0 H, Chloride 97 L, Carbon Dioxide 16 L D, Anion Gap 24.0 H, BUN 35 H, Creatinine 2.38 H, Estimated Creat Clear 41, Estimated GFR 31 L, Est GFR ( Amer) 38 L, Glucose 712 H*, Calcium 7.9 L 11/17/18 06:55: Random Glucose 712 H* I & O for Last 24 hours: Intake & Output 11/14/18 11/15/18 11/16/18 11/17/18 11:59 11:59 11:59 11:59 Weight 150 lb 8 oz - Constitutional no acute distress - *Routine HEENT Exam Eye: Present: PERRL ENT: Present: mucous membranes dry - *Routine Respiratory Exam Present: CTA bilaterally - *Routine Cardiovascular Exam Present: RRR - *Routine Abdominal Exam Present: soft. Absent: tenderness - *Routine Extremities Exam Present: edema (2+) - *Routine Neurological Exam Present: alert, oriented X3 Assessment and Plan (1) Hypertension associated with chronic kidney disease due to type 1 diabetes mellitus Current visit: Yes Status: Acute Category: Medical Code(s): E10.22 - Type 1 diabetes mellitus with diabetic chronic kidney disease; I12.9 - Hypertensive chronic kidney disease with stage 1 through stage 4 chronic kidney disease, or unspecified chronic kidney disease (2) Dehydration Current visit: Yes Status: Acute Category: Medical Code(s): E86.0 - Dehydration (3) Hyperglycemia due to type 1 diabetes mellitus Current visit: Yes Status: Acute Category: Medical Code(s): E10.65 - Type 1 diabetes mellitus with hyperglycemia (4) UTI (urinary tract infection) Current visit: Yes Status: Acute Category: Medical Code(s): N39.0 - Uri nary tract infection, site not specified (5) Acute renal failure (ARF) Current visit: No Status: Acute Qualifiers: Acute renal failure type: unspecified Qualified Code(s): N17.9 - Acute kidney failure, unspecified Category: Medical Code(s): N17.9 - Acute kidney failure, unspecified (6) Hypertension Current visit: No Status: Chronic Qualifiers: Hypertension type: essential hypertension Qualified Code(s): I10 - Essential (primary) hypertension Category: Medical Code(s): I10 - Essential (primary) hypertension - Assessment and plan all Dx Assessment and Plan for all problems:: See orders. We are awaiting his recent Chem-7. A dose of amlodipine will be given p.o.
--- NOTE | 2018-11-17 09:35 | Pharmacy Consult Notes ---
[facility] Pharmacy VTE Monitoring - Patient Demographics Admission date: 11/17/18 Report Date: 11/17/18 Time: 09:35 Allergies/Adverse Reactions: Patient Allergies Penicillins [PENICILLINS] Allergy (Severe, Verified 11/17/18 01:09) I-SHASTA Height: 1.68 m Weight: 68.266 kg Patient Problems: Current Active Problems Dehydration (Acute) UTI (urinary tract infection) (Acute) Hyperglycemia due to type 1 diabetes mellitus (Acute) Hypertension associated with chronic kidney disease due to type 1 diabetes mellitus (Acute) - VTE Risk Labs: VTE Related Lab Results Hgb 10.4 g/dL (14.1-18.0) L 11/17/18 01:28 Hct 34.5 % (42.0-52.0) L 11/17/18 01:28 Plt Count 380 K/mm3 (142-424) 11/17/18 01:28 BUN 35 mg/dL (7-18) H 11/17/18 06:55 Creatinine 2.38 mg/dL (0.70-1.30) H 11/17/18 06:55 Estimated Creat Clear 41 mL/min (50-200) 11/17/18 06:55 Was VTE Risk Assessment Performed: Yes VTE Score: 2 VTE Risk Level: Very Low Risk - Prophylaxis VTE Prophylaxis Ordered?: Yes Types of VTE Prophylaxis: TEDS Knee High Location of Applied Device: Bilateral Lower Extremeties
[2018-11-17 09:47] LABS: Anion Gap 21.4 mEq/L (5-15); Calcium 8.3 mg/dL (8.5-10.1)
[2018-11-17 09:52] LABS: Potassium 5.4 mmoL/L (3.5-5.1)
--- NOTE | 2018-11-17 13:17 | History & Physical Report ---
*Admission Date: 11/17/18 *Chief complaint: Diabetes hyperglycemia *History of present illness: This 38-year-old white male has severe diabetes mellitus. He is admitted periodically with hyperglycemia and DKA. He was hospitalized recently at [facility] in [place] He returns to the emergency room on on this occasion with blood sugars unreadable they are so high. He does not show much acidosis at this point however. He is certainly more alert than he was when he was admitted previously. He is admitted for IV fluids for adjustment of medication and treatment of his hyperglycemia. The patient does not have a primary care physician. He is followed at the [facility]. He did not go to the [facility] in follow-up after his most recent admission. He has had a chronic urinary tract infection which complicates his diabetes. He still has evidence of urinary tract infe ction. He has severe renal insufficiency. [facility] History I have reviewed the patient's past medical history: Yes Medical History: Reports:: Diabetes Mellitus Type 1, Hyperlipidemia, Hypertension, Renal Disease (Persistent UTI), Renal Insufficiency Denies:: Cancer, Diabetes Mellitus Type 2, MRSA Have you ever received a pneumonia vaccine?: No (Perhaps at the last visit?) Have you received a flu vaccine this season?: No (Perhaps at the last visit?) Other Medical History: Reports: Other Laterality Cases: Bilateral: Tonsillectomy Other Surgeries: Yes: No Previous Surgery (Tonsillectomy), Other Amputation: No Fractures: No - *Social History Educational Level: Attended High School Smoking Status: Never smoker Tobacco Type: smokeless tobacco # Packs/Day (cigarettes): 1 Alcohol Intake: former Alcohol Intake Frequency:: a few times a month Substance Use Type: denies use Occupational Status: unemployed Housing: apartment Household Members: spouse, family, children Travel in the last 8 weeks: None - Psychiatric History Expresses thoughts of harming self/others: None Suicide Plan Description: No Plan *Family Hx:: Cancer, Diabetes, Hyperlipidemia, Hypertension, Stroke Review of Systems - Constitutional Reports fatigue, Reports weakness - Eyes Denies blurry vision, Denies change in vision - ENT Reports dry mouth - *Cardiovascular Reports rapid, pounding, or irregular heartbeat - *Respiratory Denies shortness of breath - *Gastrointestinal Reports vomiting, Denies abdominal pain - *Genitourinary Reports painful urination - *Musculoskeletal Denies joint pain - *Neurologic Denies confusion, Denies headache(s), Denies fainting, Denies tingling Meds Home Medications Medication Instructions Recorded Confirmed Type Insulin Aspart [Novolog] 0 unit SQ DIRECTED 12/19/17 11/17/18 History insulin glargine (U- 100) 100 35 unit SQ HS ml 08/07/18 11/17/18 History unit/mL subcutaneous solution Carvedilol [Coreg 3.125mg Tablet] 3.125 mg PO BID 08/10/18 11/17/18 History Albuterol Sulfate [Proair Hfa 2 puffs IH Q4HP PRN #1 inh 09/15/18 11/17/18 Rx 90mcg/puff Inh] Gabapentin [Neurontin 800mg Tab] 800 mg PO QID 11/08/18 11/17/18 History Lisinopril [Lisinopril 5mg Tablet] 5 mg PO DAILY 11/08/18 11/17/18 History Allergies Allergy/AdvReac Type Severity Reaction Status Date / Time Penicillins [PENICILLINS] Allergy Severe I-HIVES Verified 11/17/18 01:09 Exam Vital signs and Labs for Last 24 Hours: Temp Pulse Resp BP Pulse Ox 97.6 F 78 15 176/118 H 100 11/17/18 06:12 11/17/18 12:00 11/17/18 12:00 11/17/18 12:00 11/17/18 12:00 Laboratory Results - last 24 hr 11/17/18 01:14: VBG pH 7.34, VBG pCO2 40.1, VBG pO2 37.7, VBG HCO3 21.1 L, VBG Total CO2 22.3 L, VBG O2 Saturation 71.2 H, VBG Base Excess -4.7 L 11/17/18 01:28: WBC 12.2 H, RBC 3.30 L, Hgb 10.4 L, Hct 34.5 L, MCV 104.8 H, MCH 31.5 H, MCHC 30.0 L, RDW 14.6, Plt Count 380, MPV 7.9, Neut % (Auto) 72.1, Lym ph % (Auto) 21.0, [place] % (Auto) 4.9, Eos % (Auto) 1.5, Baso % (Auto) 0.5, Neut # (Auto) 8.8 H, Lymph # (Auto) 2.6, [place] # (Auto) 0.6, Eos # (Auto) 0.2, Baso # (Auto) 0.1 11/17/18 01:28: Sodium 123 L, Potassium 5.5 H, Chloride 88 L, Carbon Dioxide 24, Anion Gap 16.5 H, BUN 37 H, Creatinine 2.63 H, Estimated Creat Clear 36, Estimated GFR 28 L, Est GFR ( Amer) 34 L, Glucose 1101 H*, Calcium 8.7, Acetone Level None detected 11/17/18 02:07: Urine Color Yellow, Urine Appearance Cloudy, Urine pH 6.0, Ur Specific [place] <= 1.005, Urine Protein Trace, Urine Glucose (UA) 3+, Urine Ketones Negative, Urine Blood Trace-l, Urine Nitrate Negative, Urine Bilirubin Negative, Urine Urobilinogen 0.2, Ur Leukocyte Esterase 1+ A, Urine RBC 3-5, Urine WBC Tntc 11/17/18 04:40: Sodium 129 L, Potassium 5.1, Chloride 95 L, Carbon Dioxide 21, A nion Gap 18.1 H, BUN 35 H, Creatinine 2.39 H, Estimated Creat Clear 39, Estimated GFR 31 L, Est GFR ( Amer) 37 L, Glucose 721 H* D, Calcium 7.8 L D 11/17/18 06:10: Random Glucose 776 H* 11/17/18 06:55: Sodium 131 L, Potassium 6.0 H, Chloride 97 L, Carbon Dioxide 16 L D, Anion Gap 24.0 H, BUN 35 H, Creatinine 2.38 H, Estimated Creat Clear 41, Estimated GFR 31 L, Est GFR ( Amer) 38 L, Glucose 712 H*, Calcium 7.9 L 11/17/18 06:55: Random Glucose 712 H* 11/17/18 08:11: POC Glucose 586 H* 11/17/18 09:19: Sodium 133 L, Potassium 5.4 H, Chloride 100, Carbon Dioxide 17 L , Anion Gap 21.4 H, BUN 32 H, Creatinine 2.25 H, Estimated Creat Clear 44, Estimated GFR 33 L, Est GFR ( Amer) 40 L, Glucose 578 H*, Calcium 8.3 L 11/17/18 09:19: Random Glucose 578 H* 11/17/18 10:06: POC Glucose 475 H* 11/17/18 12:11: POC Glucose 217 H I & O for Last 24 hours: Intake & Output 11/15/18 11/16/18 11/17/18 11/18/18 11:59 11:59 11:59 11:59 Intake Total 480 / 480 Balance 480 / 480 Weight 150 lb 8 oz - Constitutional no acute distress Comments: At the last admission he was poorly responsive. Today he is quite responsive and alert. - *Routine HEENT Exam Eye: Present: EOMI, PERRL ENT: Present: mucous membranes dry - *Routine Neck Exam Present: supple. Absent: lymphadenopathy - Routine Chest/Breast/Axilla Exam Chest wall: Absent: tenderness - *Routine Respiratory Exam Present: CTA bilaterally - *Routine Cardiovascular Exam Present: RRR - *Routine Abdominal Exam Present: soft. Absent: tenderness, mass - *Routine Extremities Exam Present: edema Comments: Some edema present bilaterally and dry skin. - *Routine Skin Exam Present: dry - *Routine Neurological Exam Present: alert, oriented X3, normal speech Assessment and Plan (1) Hyperglycemia due to type 1 diabetes mellitus Current visit: Yes Status: Acute Category: Medical Code(s): E10.65 - Type 1 diabetes mellitus with hyperglycemia (2) Hypertension associated with chronic kidney disease due to type 1 diabetes mellitus Current visit: Yes Status: Acute Category: Medical Code(s): E10.22 - Type 1 diabetes mellitus with diabetic chronic kidney disease; I12.9 - Hypertensive chronic kidney disease with stage 1 through stage 4 chronic kidney disease, or unspecified chronic kidney disease (3) Dehydration Current visit: Yes Status: Acute Category: Medical Code(s): E86.0 - Dehydration (4) UTI (urinary tract infection) Current visit: Yes Status: Acute Category: Medical Code(s): N39.0 - Urinary tract infection, site not specified (5) Acute renal failure (ARF) Current visit: No Status: Acute Qualifiers: Acute renal failure type: unspecified Qualified Code(s): N17.9 - Acute kidney failure, unspecified Category: Medical Code(s): N17.9 - Acute kidney failure, unspecified - Assessment and plan all Dx Assessment and Plan for all problems:: See orders. IV fluids. High-dose sliding scale insulin. He has received glargine insulin. He is receiving Rocephin.
[2018-11-17 13:26] LABS: Anion Gap 18.5 mEq/L (5-15); Calcium 8.1 mg/dL (8.5-10.1); Potassium 5.5 mmoL/L (3.5-5.1)
[2018-11-17 17:10] LABS: Calcium 8.1 mg/dL (8.5-10.1)
[2018-11-18 05:18] LABS: Basophils # 0.1 K/mm3 (0-0.2); Basophils % 0.4 % (0.1-2.0); Eosinophils # 0.4 K/mm3 (0.0-0.4); Eosinophils % 3.1 % (0.1-12.0); Hemoglobin 8.9 g/dL (14.1-18.0); Lymphocytes # 4.1 K/mm3 (0.7-4.5); Lymphocytes % 29.2 % (10-50); Mean Corpuscular HGB Conc 31.8 g/dL (31.8-35.4); Mean Corpuscular Hemoglobin 30.7 pg (27.0-31.2); Mean Corpuscular Volume 96.5 fl (80-94); Mean Platelet Volume 7.7 fl (7.4-10.4); Monocytes # 0.4 K/mm3 (0.1-1.0); Monocytes % 3.2 % (1.7-9.3); Neutrophils % 64.2 % (37.0-80.0); Platelet Count 326 K/mm3 (142-424); Red Blood Count 2.89 M/mm3 (4.60-6.20)
[2018-11-18 05:19] LABS: Hematocrit 27.9 % (42.0-52.0)
[2018-11-18 05:27] LABS: Albumin Level 1.7 gm/dL (3.4-5.0); Albumin/Globulin Ratio 0.4 (1.1-1.8); Anion Gap 12.8 mEq/L (5-15); Bilirubin,Total 0.1 mg/dL (0.2-1.0); Calcium 7.5 mg/dL (8.5-10.1); Globulin 3.9 gm/dl (1.3-3.2); Potassium 4.8 mmoL/L (3.5-5.1); Total Protein,Serum 5.6 gm/dL (6.4-8.2)
--- NOTE | 2018-11-18 13:01 | Progress Note ---
Internal Medicine - PN: Subj *Date: 11/18/18 *Time: 12:58 Interval history: The patient is feeling much better. His hemoglobin has decreased and his weight has increased significantly, thus indicating a dilutional effect. He is still receiving 150 cc/hr of IV fluids. His electrolytes have improved but his BUN and creatinine are still elevated. Interestingly, his urine culture was negative. Urinalysis will be repeated. Exam Vital signs and Labs for Last 24 Hours: Temp Pulse Resp BP Pulse Ox 98.0 F 75 17 113/74 97 11/18/18 12:00 11/18/18 12:00 11/18/18 10:00 11/18/18 10:00 11/18/18 10:00 Laboratory Results - last 24 hr 11/17/18 13:07: Sodium 136, Potassium 5.5 H, Chloride 103, Carbon Dioxide 20 L, Anion Gap 18.5 H, BUN 29 H, Creatinine 1.89 H, Estimated Creat Clear 52, Estimated GFR 41 L, Est GFR ( Amer) 49 L D, Glucose 227 H D, Calcium 8.1 L 11/17/18 16:33: POC Glucose 140 H 11/17/18 16:58: Sodium 135 L, Potassium 4.0 D, Chloride 100, Carbon Dioxide 26 D, Anion Gap 13.0, BUN 27 H, Creatinine 1.86 H, Estimated Creat Clear 53, Estimated GFR 41 L, Est GFR ( Amer) 50 L, Glucose 143 H D, Calcium 8.1 L 11/17/18 20:02: POC Glucose 199 H 11/18/18 00:12: POC Glucose 147 H 11/18/18 04:09: POC Glucose 83 11/18/18 05:05: WBC 14.0 H, RBC 2.89 L, Hgb 8.9 L, Hct 27.9 L, MCV 96.5 H, MCH 30.7, MCHC 31.8, RDW 15.0, Plt Count 326, MPV 7.7, Neut % (Auto) 64.2, Lymph % (Auto) 29.2, [place] % (Auto) 3.2, Eos % (Auto) 3.1, Baso % (Auto) 0.4, Neut # (Auto) 9.0 H, Lymph # (Auto) 4.1, [place] # (Auto) 0.4, Eos # (Auto) 0.4, Baso # (Auto) 0.1 11/18/18 05:05: Sodium 133 L, Potassium 4.8, Chloride 102, Carbon Dioxide 23, Anion Gap 12.8, BUN 26 H, Creatinine 2.06 H, Estimated Creat Clear 50, Estimated GFR 37 L, Est GFR ( Amer) 44 L, Glucose 88 D, Calcium 7.5 L, Total Bilirubin 0.1 L, AST 41 H, ALT 71, Alkaline Phosphatase 596 H, Total Protein 5.6 L, Albumin 1.7 L, Globulin 3.9 H, Albumin/Globulin Ratio 0.4 L 11/18/18 08:22: POC Glucose 155 H 11/18/18 12:10: POC Glucose 120 H I & O for Last 24 hours: Intake & Output 11/16/18 11/17/18 11/18/18 11/19/18 11:59 11:59 11:59 11:59 Intake Total 480 / 480 4858 / 4858 1125 / 1125 Output Total 3500 / 3500 Balance 480 / 480 1358 / 1358 1125 / 1125 Weight 150 lb 8 oz 158 lb Microbiology Reports for the Last 24 Hours: Microbiology 11/17/18 02:07 Urine,Clean Catch Urine Culture - Preliminary NO GROWTH AFTER 24 HOURS - Constitutional no acute distress Comments: Note weight gain. - *Routine HEENT Exam Eye: Present: PERRL ENT: Present: mucous membranes moist - *Routine Respiratory Exam Present: CTA bilaterally - *Routine Cardiovascular Exam Present: RRR - *Routine Abdominal Exam Present: soft. Absent: tenderness - *Routine Extremities Exam Present: edema (2+) - *Routine Neurological Exam Present: alert, oriented X3 Assessment and Plan (1) Hyperglycemia due to type 1 diabetes mellitus Current visit: Yes Status: Acute Category: Medical Code(s): E10.65 - Type 1 diabetes mellitus with hyperglycemia (2) Hypertension associated with chronic kidney disease due to type 1 diabetes mellitus Current visit: Yes Status: Acute Category: Medical Code(s): E10.22 - Type 1 diabetes mellitus with diabetic chronic kidney disease; I12.9 - Hypertensive chronic kidney disease with stage 1 through stage 4 chronic kidney disease, or unspecified chronic kidney disease (3) Dehydration Current visit: Yes Status: Acute Category: Medical Code(s): E86.0 - Dehydration (4) UTI (urinary tract infection) Current visit: Yes Status: Acute Category: Medical Code(s): N39.0 - Urinary tract infection, site not specified (5) Acute renal failure (ARF) Current visit: No Status: Acute Qualifiers: Acute renal failure type: unspecified Qualified Code(s): N17.9 - Acute kidney failure, unspecified Category: Medical Code(s): N17.9 - Acute kidney failure, unspecified - Assessment and plan all Dx Assessment and Plan for all problems:: Saline lock IV. Repeat labs in the morning. Blood pressure has improved significantly. When we discharge this patient we will arrange for specific follow-up dates.
[2018-11-18 16:17] LABS: Microscopic, Urine URINE MICROSCOPIC (MICROSCOPIC)
[2018-11-18 16:20] LABS: Appearance,Urine TURBID (Clear); Bilirubin,Urine Negative (Negative); Blood, Urine 1+ (Negative); Color,Urine YELLOW (Yellow); Glucose,Urine (UA) 2+ (Negative); Ketones,Urine Negative (Negative); Leukocyte Esterase,Urine 3+ (Negative); PH,Urine 6.5 (5.0-8.5); Protein,Urine 1+ (Negative); Specific Gravity, Urine <= 1.005 (1.005-1.030); Urobilinogen,Urine 0.2 EU/dl (0.2)
[2018-11-18 16:29] LABS: Bacteria,Urine 4+ /lpf; WBC,Urine TNTC #/hpf (0-3)
[2018-11-19 04:32] LABS: Basophils # 0.1 K/mm3 (0-0.2); Basophils % 0.7 % (0.1-2.0); Eosinophils # 0.5 K/mm3 (0.0-0.4); Eosinophils % 3.5 % (0.1-12.0); Hematocrit 32.8 % (42.0-52.0); Lymphocytes # 4.9 K/mm3 (0.7-4.5); Lymphocytes % 31.9 % (10-50); Mean Corpuscular HGB Conc 31.4 g/dL (31.8-35.4); Mean Corpuscular Hemoglobin 30.3 pg (27.0-31.2); Mean Corpuscular Volume 96.6 fl (80-94); Mean Platelet Volume 7.6 fl (7.4-10.4); Monocytes # 0.7 K/mm3 (0.1-1.0); Monocytes % 4.4 % (1.7-9.3); Neutrophils # 9.1 K/mm3 (1.8-7.8); Neutrophils % 59.4 % (37.0-80.0); Platelet Count 353 K/mm3 (142-424); Red Cell Distribution Width 15.1 % (11.5-17.5); White Blood Count 15.4 K/mm3 (4.8-10.8)
[2018-11-19 04:41] LABS: Anion Gap 13.3 mEq/L (5-15); Calcium 8.2 mg/dL (8.5-10.1); Potassium 4.3 mmoL/L (3.5-5.1)
[2018-11-19 05:20] LABS: Eosinophils % 1 % (0-3); Lymphocytes % 36 % (10-50); Monocytes % 1 % (2-9); Neutrophils % 58 % (42-76); Total Cells Counted 100
[2018-11-19 05:21] LABS: Hypochromasia 1+; Rouleaux 1+
[2018-11-19 05:35] LABS: Hemoglobin 10.3 g/dL (14.1-18.0)
--- NOTE | 2018-11-19 08:40 | Progress Note ---
Internal Medicine - PN: Subj *Date: 11/19/18 *Time: 08:37 Interval history: Patient states he is feeling well this morning. He slept about 3 hours last night. He is eating without difficulty. He is voiding without problems. He has ambulated in the room without problems. Blood sugar was low in the 50s and 60s this a.m. He was given orange juice with an increase of the blood sugar to 108. Cognition remained intact. Creatinine has improved to 1.78. White blood cell count is elevated this a.m. at 15.4 with hemoglobin of 10.3 and hematocrit of 32.8. Repeat urine culture is pending. Exam Vital signs and Labs for Last 24 Hours: Temp Pulse Resp BP Pulse Ox 98.2 F 80 16 149/76 H 100 11/19/18 08:00 11/19/18 08:00 11/19/18 08:00 11/19/18 08:00 11/19/18 08:00 Laboratory Results - last 24 hr 11/18/18 08:22: POC Glucose 155 H 11/18/18 12:10: POC Glucose 120 H 11/18/18 16:05: POC Glucose 343 H* 11/18/18 16:13: Urine Color Yellow, Urine Appearance Turbid, Urine pH 6.5, Ur Specific [place] <= 1.005, Urine Protein 1+, Urine Glucose (UA) 2+, Urine Ketones Negative, Urine Blood 1+, Urine Nitrate Negative, Urine Bilirubin Negative, Urine Urobilinogen 0.2, Ur Leukocyte Esterase 3+ A, Urine RBC 3-5, Urine WBC Tntc, Urine Bacteria 4+ 11/18/18 20:14: POC Glucose 271 H 11/19/18 00:03: POC Glucose 83 11/19/18 04:05: WBC 15.4 H, RBC 3.40 L, Hgb 10.3 L D, Hct 32.8 L, MCV 96.6 H, MCH 30.3, MCHC 31.4 L, RDW 15.1, Plt Count 353, MPV 7.6, Neut % (Auto) 59.4, Lymph % (Auto) 31.9, [place] % (Auto) 4.4, Eos % (Auto) 3.5, Baso % (Auto) 0.7, Neut # (Auto) 9.1 H, Lymph # (Auto) 4.9 H, [place] # (Auto) 0.7, Eos # (Auto) 0.5 H , Baso # (Auto) 0.1, Total Counted 100, Neutrophils % (Manual) 58, Band Neutrophils % 4.0, Lymphocytes % (Manual) 36, Monocytes % (Manual) 1 L, Eosinophils % (Manual) 1, Platelet Estimate Normal, Hypochromasia 1+, Rouleaux 1+ 11/19/18 04:05: Sodium 135 L, Potassium 4.3, Chloride 103, Carbon Dioxide 23, Anion Gap 13.3, BUN 26 H, Creatinine 1.78 H, Estimated Creat Clear 58, Estimated GFR 43 L, Est GFR ( Amer) 53 L D, Glucose 64 L D, Calcium 8.2 L 11/19/18 04:08: POC Glucose 86 11/19/18 05:13: POC Glucose 108 I & O for Last 24 hours: Intake & Output 11/16/18 11/17/18 11/18/18 11/19/18 11:59 11:59 11:59 11:59 Intake Total 480 / 480 4858 / 4858 3065 / 3065 Output Total 3500 / 3500 6880 / 6880 Balance 480 / 480 1358 / 1358 -3815 / -3815 Weight 150 lb 8 oz 158 lb Microbiology Reports for the Last 24 Hours: Microbiology 11/17/18 02:07 Urine,Clean Catch Urine Culture - Final NO GROWTH AFTER 48 HOURS - Constitutional no acute distress - *Routine Respiratory Exam Present: CTA bilaterally (Anteriorly and posteriorly) - *Routine Cardiovascular Exam Present: RRR - *Routine Abdominal Exam Present: soft, normoactive bowel sounds. Absent: tenderness - *Routine Extremities Exam Absent: edema, calf tenderness - *Routine Neurological Exam Present: alert, oriented X3 Assessment and Plan (1) Hyperglycemia due to type 1 diabetes mellitus Current visit: Yes Status: Acute Category: Medical Code(s): E10.65 - Type 1 diabetes mellitus with hyperglycemia (2) Hypertension associated with chronic kidney disease due to type 1 diabetes mellitus Current visit: Yes Status: Acute Category: Medical Code(s): E10.22 - Type 1 diabetes mellitus with diabetic chronic kidney disease; I12.9 - Hypertensive chronic kidney disease with stage 1 through stage 4 chronic kidney disease, or unspecified chronic kidney disease (3) Dehydration Current visit: Yes Status: Acute Category: Medical Code(s): E86.0 - Dehydration (4) UTI (urinary tract infection) Current visit: Yes Status: Acute Category: Medical Code(s): N39.0 - Urinary tract infection, site not specified (5) Acute renal failure (ARF) Current visit: No Status: Acute Qualifiers: Acute renal failure type: unspecified Qualified Code(s): N17.9 - Acute kidney failure, unspecified Category: Medical Code(s): N17.9 - Acute kidney failure, unspecified - Assessment and plan all Dx Assessment and Plan for all problems:: Will discuss insulin with Moshe. May need to decrease Lantus and /or sliding scale.
--- NOTE | 2018-11-20 09:17 | Progress Note ---
Internal Medicine - PN: Subj *Date: 11/20/18 *Time: 09:14 Interval history: The patient is clinically stable. We have arranged a follow-up at the [facility]. , 3:[address] Yemi North, [address]. [email or web address] [place], [place] [phone]. Exam Vital signs and Labs for Last 24 Hours: Temp Pulse Resp BP Pulse Ox 97.8 F 92 H 16 121/74 98 11/20/18 04:00 11/20/18 04:00 11/20/18 04:00 11/20/18 04:00 11/20/18 04:00 Laboratory Results - last 24 hr 11/17/18 01:11: POC Glucose > 600 H* 11/17/18 05:58: POC Glucose > 600 H* 11/17/18 06:20: POC Glucose > 600 H* 11/19/18 03:52: POC Glucose 46 L* 11/19/18 03:59: POC Glucose 52 L 11/19/18 08:07: POC Glucose 199 H 11/19/18 11:30: POC Glucose 196 H 11/19/18 17:02: POC Glucose 256 H 11/19/18 21:26: POC Glucose 388 H* 11/19/18 23:57: POC Glucose 343 H* 11/20/18 03:05: POC Glucose 190 H I & O for Last 24 hours: Intake & Output 11/17/18 11/18/18 11/19/18 11/20/18 11:59 11:59 11:59 11:59 Intake Total 480 / 480 4858 / 4858 3065 / 3065 1620 / 1620 Output Total 3500 / 3500 6880 / 6880 4000 / 4000 Balance 480 / 480 1358 / 1358 -3815 / -3815 -2380 / -2380 Weight 150 lb 8 oz 158 lb 157 lb 12.134 oz Microbiology Reports for the Last 24 Hours: Microbiology 11/18/18 16:13 Urine,Clean Catch Urine Culture - Preliminary Yeast - Constitutional no acute distress - *Routine HEENT Exam Head: Present: normocephalic Eye: Present: PERRL ENT: Present: mucous membranes moist - Routine Chest/Breast/Axilla Exam Chest wall: Absent: tenderness - *Routine Respiratory Exam Present: CTA bilaterally. Absent: rales, wheezes - *Routine Cardiovascular Exam Present: RRR - *Routine Abdominal Exam Present: soft. Absent: tenderness - *Routine Extremities Exam Absent: edema - *Routine Neurological Exam Present: alert, oriented X3 Assessment and Plan (1) Hyperglycemia due to type 1 diabetes mellitus Current visit: Yes Status: Acute Category: Medical Code(s): E10.65 - Type 1 diabetes mellitus with hyperglycemia (2) Hypertension associated with chronic kidney disease due to type 1 diabetes mellitus Current visit: Yes Status: Acute Category: Medical Code(s): E10.22 - Type 1 diabetes mellitus with diabetic chronic kidney disease; I12.9 - Hypertensive chronic kidney disease with stage 1 through stage 4 chronic kidney disease, or unspecified chronic kidney disease (3) Dehydration Current visit: Yes Status: Acute Category: Medical Code(s): E86.0 - Dehydration (4) UTI (urinary tract infection) Current visit: Yes Status: Acute Category: Medical Code(s): N39.0 - Urinary tract infection, site not specified (5) Acute renal failure (ARF) Current visit: No Status: Acute Qualifiers: Acute renal failure type: unspecified Qualified Code(s): N17.9 - Acute kidney failure, unspecified Category: Medical Code(s): N17.9 - Acute kidney failure, unspecified - Assessment and plan all Dx Assessment and Plan for all problems:: Discharge today. Follow-up with
--- NOTE | 2018-11-21 22:02 | Discharge Summary ---
General - General Admission date:: 11/17/18 Discharge date: 11/20/18 HPI HPI: This 38-year-old white male has severe diabetes mellitus. He is admitted periodically with hyperglycemia and DKA. He was hospitalized recently at [facility] in [place]. He returns to the emergency room on on this occasion with blood sugars unreadable they are so high. He does not show much acidosis at this point however. He is certainly more alert than he was when he was admitted previously. He is admitted for IV fluids for adjustment of medication and treatment of his hyperglycemia. The patient does not have a primary care physician. He is followed at the [facility]. He did not go to the [facility] in follow-up after his most recent admission. He has had a chronic urinary tract infection which complicates his diabetes. He still has evidence of urinary tract infection. He has severe renal insufficiency. Hospital Course Hospital Course: The patient was started on IV fluids and high-dose insulin. He was also started on Rocephin d/t an elevated WBC and hx of UTI. His electrolytes improved but his renal functions stayed elevated. His urine culture was negative so a U/A was repeated. The patient's blood pressure was initially elevated and this improved. He was able to tolerate a diet and ambulate without difficulty. His blood sugar actually dropped low on 11/19/18 and he had to be given orange juice. His insulin was adjusted. His renal functions did improve. His white blood cell count was elevated but his urine culture grew only yeast. The patient was clinically stable to be discharged on cefdinir. We have arranged a follow-up at the [facility] on at 3:[address] Yemi North, [address] [place] [address]. [email or web address] [place], [place] [phone]. Objective Vital signs: Temp Pulse Resp BP Pulse Ox 98.1 F 90 16 134/80 99 11/20/18 08:00 11/20/18 08:00 11/20/18 08:00 11/20/18 08:00 11/20/18 08:00 Narrative: - Constitutional no acute distress Comments: At the last admission he was poorly responsive. Today he is quite responsive and alert. - *Routine HEENT Exam Eye: Present: EOMI, PERRL ENT: Present: mucous membranes dry - *Routine Neck Exam Present: supple. Absent: lymphadenopathy - Routine Chest/Breast/Axilla Exam Chest wall: Absent: tenderness - *Routine Respiratory Exam Present: CTA bilaterally - *Routine Cardiovascular Exam Present: RRR - *Routine Abdominal Exam Present: soft. Absent: tenderness, mass - *Routine Extremities Exam Present: edema Comments: Some edema present bilaterally and dry skin. - *Routine Skin Exam Present: dry - *Routine Neurological Exam Present: alert, oriented X3, normal speech DS: Diagnosis - Discharge Diagnosis (1) Hyperglycemia due to type 1 diabetes mellitus Status: Acute (2) Hypertension associated with chronic kidney disease due to type 1 diabetes mellitus Status: Acute (3) Dehydration Status: Acute (4) UTI (urinary tract infection) Status: Acute (5) Acute renal failure (ARF) Status: Acute Discharge Plan - Patient Discharge Instructions Patient Instructions: Low Glycemic Index Diets (Alternative Therapy), Type 1 Diabetes, Carbohydrate-Counting Diet - Follow up Plan Disposition: Home, Self-Long Term Medications: Home Medications Medication Instructions Recorded Confirmed Type Insulin Aspart [Novolog] 0 unit SQ DIRECTED 12/19/17 11/21/18 History insulin glargine (U- 100) 100 35 unit SQ HS ml 08/07/18 11/21/18 History unit/mL subcutaneous solution Carvedilol [Coreg 3.125mg Tablet] 3.125 mg PO BID 08/10/18 11/21/18 History Albuterol Sulfate [Proair Hfa 2 puffs IH Q4HP PRN #1 inh 09/15/18 11/21/18 Rx 90mcg/puff Inh] Gabapentin [Neurontin 800mg Tab] 800 mg PO QID 11/08/18 11/21/18 History Lisinopril [Lisinopril 5mg Tablet] 5 mg PO DAILY 11/08/18 11/21/18 History Cefdinir [Omnicef 300mg Capsule] 300 mg PO BID 11/21/18 11/21/18 History Prescriptions/Medication Reconciliation: Continue insulin glargine (U- 100) 100 unit/mL subcutaneous solution 35 unit SQ HS ml Carvedilol [Coreg 3.125mg Tablet] 3.125 mg PO BID Albuterol Sulfate [Proair Hfa 90mcg/puff Inh] 2 puffs IH Q4HP PRN #1 inh PRN Reason: Shortness Of Breath Or Wheezing Gabapentin [Neurontin 800mg Tab] 800 mg PO QID Insulin Aspart [Novolog] 0 unit SQ DIRECTED Lisinopril [Lisinopril 5mg Tablet] 5 mg PO DAILY No Action Cefdinir [Omnicef 300mg Capsule] 300 mg PO BID
== END 2018-11-20 11:06 | disposition home or self-care (01) | DRG 638 ==
LOC: ER 00:57 → 2ND 00:57 → OBSVTOIN 06:16 → 2ND 06:17
PROVIDERS: ADMIT Family Medicine; ATTEND Family Medicine

== ENCOUNTER → 2018-11-29 16:20 | Outpatient (CLI) | payer SELFPAY ==
[2018-11-29 16:26] LABS: Microscopic, Urine URINE MICROSCOPIC (MICROSCOPIC)
[2018-11-29 16:51] LABS: Basophils # 0.1 K/mm3 (0-0.2); Basophils % 0.7 % (0.1-2.0); Eosinophils # 0.1 K/mm3 (0.0-0.4); Eosinophils % 0.8 % (0.1-12.0); Hemoglobin 11.1 g/dL (14.1-18.0); Lymphocytes # 1.7 K/mm3 (0.7-4.5); Lymphocytes % 19.7 % (10-50); Mean Corpuscular HGB Conc 30.9 g/dL (31.8-35.4); Mean Corpuscular Hemoglobin 30.1 pg (27.0-31.2); Mean Corpuscular Volume 97.5 fl (80-94); Monocytes # 0.4 K/mm3 (0.1-1.0); Monocytes % 4.4 % (1.7-9.3); Neutrophils # 6.6 K/mm3 (1.8-7.8); Neutrophils % 74.4 % (37.0-80.0); Platelet Count 528 K/mm3 (142-424); Red Cell Distribution Width 14.3 % (11.5-17.5); White Blood Count 8.8 K/mm3 (4.8-10.8)
[2018-11-29 16:53] LABS: Appearance,Urine CLOUDY (Clear); Bilirubin,Urine Negative (Negative); Blood, Urine 1+ (Negative); Color,Urine STRAW (Yellow); Glucose,Urine (UA) 3+ (Negative); Ketones,Urine Negative (Negative); Leukocyte Esterase,Urine 1+ (Negative); Nitrate,Urine POSITIVE (Negative); PH,Urine 6.5 (5.0-8.5); Protein,Urine 2+ (Negative); Specific Gravity, Urine <= 1.005 (1.005-1.030); Urobilinogen,Urine 0.2 EU/dl (0.2)
[2018-11-29 17:21] LABS: Bacteria,Urine Trace /lpf; RBC,Urine 20-50 #/hpf (0-3); Squamous Epithelial Cell,Urine Occasional #/hpf (0-5); WBC,Urine 20-50 #/hpf (0-3)
[2018-11-29 18:14] LABS: Creatinine,Urine Random 26 mg/dL (20-320); Total Protein,Urine Random 142.2 mg/dL (0.0-11.9)
[2018-11-29 18:22] LABS: Albumin Level 2.7 gm/dL (3.4-5.0); Anion Gap 15.6 mEq/L (5-15); Blood Urea Nitrogen 25 mg/dL (7-18); Calcium 8.9 mg/dL (8.5-10.1); Carbon Dioxide 26 mmol/L (21.0-32.0); Chloride 94 mmol/L (98-107); Creatinine,Serum 2.07 mg/dL (0.70-1.30); Estimated Glomerular Filt Rate 37 ml/min (>60); GFR (African American) 44 ML/MIN (>60); Phosphorous 3.6 mg/dL (2.4-4.9); Potassium 4.6 mmoL/L (3.5-5.1); Sodium 131 mmol/L (136-145)
[2018-11-29 20:22] LABS: Glucose 579 mg/dL (74-106)
[2018-12-02 17:15] LABS: Parathyroid Hormone Intact 36 pg/mL (15-65); Vitamin D 25 Hydroxy 15.3 ng/mL (30.0-100.0)
== END ==
PROVIDERS: Visit Provider Internal Medicine Nephrology
DX: N18.3 Chronic kidney disease, stage 3 (moderate) (principal); R82.90 Unspecified abnormal findings in urine
CPT/HCPCS: 36415; 80069; 81001; 82570; 82652; 83970; 84155; 85025; 87086

== ENCOUNTER 2018-12-15 14:05 | Inpatient (IN) ==
--- NOTE | 2018-12-15 14:19 | Emergency Department Note ---
ED Disposition Clinical Impression: IDDM (insulin dependent diabetes mellitus), Non compliance w medication regimen, DKA (diabetic ketoacidoses) Disposition: Still a Patient Condition on Discharge: Fair Instructions: DI for Hyperglycemia -- Adult Referrals: Provider,Referral, [Primary Care Provider] - - Critical Care Critical Care Time: No Attestation: On 12/15/18, the high probability of a clinically significant, sudden or life threatening deterioration of the following system(s) required my full and direct attention, intervention and personal management. The time I documented below is in addition to time spent performing reported procedures but includes the joe wing listed in this critical care notation. Medical Decision Making - Medical Records Medical records reviewed: Yes: I reviewed the patient's medical records. - Michael Inquiry Pt receiving controlled substance: No Michael was queried for this patient: No Vital Signs: 12/15/18 14:06 12/15/18 14:30 Temperature 97.5 F L Temperature Source Oral Pulse Rate [Left Radial] 136 H 131 H Respiratory Rate 18 Blood Pressure [Right Arm] 176/116 H 176/110 H Blood Pressure Mean [Right Arm] 136 132 Blood Pressure Source [Right Arm] Automatic Cuff Automatic Cuff Blood Pressure Position [Right Arm] Sitting Sitting 02 Sat by Pulse Oximetry 100 100 Oxygen Delivery Method Room Air - Lab Data Lab Results 12/15/18 14:16: WBC 12.4 H, RBC 4.63, Hgb 13.9 L, Hct 48.0, MCV 103.6 H, MCH 29.9, MCHC 28.9 L, RDW 13.8, Plt Count 621 H, MPV 8.4, Neut % (Auto) 84.7 H, Lymph % (Auto) 12.0, [place] % (Auto) 2.7, Eos % (Auto) 0.1, Baso % (Auto) 0.5, Neut # (Auto) 10.5 H, Lymph # (Auto) 1.5, [place] # (Auto) 0.3, Eos # (Auto) 0.0, Baso # (Auto) 0.1 12/15/18 14:16: Sodium 130 L, Potassium 4.3, Chloride 88 L, Carbon Dioxide 9 L*, Anion Gap 37.3 H, BUN 64 H, Creatinine 3.96 H, Estimated Creat Clear 25, Estimated GFR 17 L*, Est GFR ( Amer) 21 L, Glucose 1034 H*, Calcium 9.5, Total Bilirubin 0.7, AST 19, ALT 38, Alkaline Phosphatase 404 H, Total Protein 8.0, Albumin 2.6 L, Globulin 5.4 H, Albumin/Globulin Ratio 0.5 L, Acetone Level Small 12/15/18 14:20: Specimen Source Right radial, O2 % room air, ABG pH 7.27 L, ABG pCO2 18.4 L, ABG pO2 162.7 H, ABG HCO3 8.2 L, ABG Total CO2 8.8 L, ABG O2 Saturation 99, ABG Base Excess -18.8 L, [place] Test Acceptable 12/15/18 14:34: Lactate 3.3 H Result diagrams: 12/15/18 14:16 12/15/18 14:16 Orders (Tests/Meds): ED MEDICATIONS Discontinued Medications Generic Name Dose Route Start Last Admin Trade Name Freq PRN Reason Stop Dose Admin Sodium Chloride 1,000 mls @ 999 mls/hr 12/15/18 14:30 12/15/18 14:35 Sod Chlor 0.9% 1000ml Bag IV 12/15/18 15:30 999 mls/hr .Q1H1M CASTILLO Administration Sodium Chloride 1,000 mls @ 999 mls/hr 12/15/18 14:30 12/15/18 14:35 Sod Chlor 0.9% 1000ml Bag IV 12/15/18 15:30 999 mls/hr .Q1H1M CASTILLO Administration Insulin Human Regular 6 unit 12/15/18 15:02 Humulin R Insulin 100 Units/Ml 10ml Vial IVP 12/15/18 15:03 ONCE ONE ORDERS Category Date Time Status Acute abdomen XR series [XR acute abdomen series] Stat Exams 12/15/18 14:20 Taken Blood Culture Stat Micro 12/15/18 14:34 Received Arterial Blood Gas Stat RT 12/15/18 14:20 Ordered - ECG Data Tracing #1 Sinus tachycardia 125 left atrial enlargement baseline artifact nonspecific ST and T wave changes. ECG initial impression date: 12/15/18 ECG initial impression time: 14:45 Medical Decision Narrative: Patient was found to have be in DKA I called Dr. Baltazar who agreed to admit him he recommended normal saline with 20 of K at 150 mL an hour start insulin drip. General Adult HPI - General Chief complaint: Hyper/Hypoglycemia Stated complaint: hyperglycemia Time Seen by Provider: 12/15/18 14:10 Mode of Arrival: EMS Limitations: No Limitations Description of Symptoms (Recalled from ER Triage Doc. by RN): EMS called for pt who states he is in DKA. States he is nauseated and vomiting - History of Present Illness HPI narrative: 38 years old noncompliant insulin-dependent diabetic who has no primary care physician. Last time he checked his insulin was 2 days ago, he started having nausea vomiting x2 and diarrhea x2 progressively gotten dehydrated and weak. He denies having headache chest pain abdominal pain hematemesis coffee-ground emesis melanotic stool or bleeding per rectum. He is having dysuria hematuria frequency. Onset (ago): day(s) (2 days.) Radiation: non-radiation Associated symptoms: nausea/vomiting - Related Data Home Medications Medication Instructions Recorded Confirmed Insulin Aspart [Novolog] 0 unit SQ DIRECTED 12/19/17 12/01/18 insulin glargine (U- 100) 100 35 unit SQ HS ml 08/07/18 12/01/18 unit/mL subcutaneous solution Carvedilol [Coreg 3.125mg Tablet] 3.125 mg PO BID 08/10/18 12/01/18 Gabapentin [Neurontin 800mg Tab] 800 mg PO QID 11/08/18 12/01/18 Lisinopril [Lisinopril 5mg Tablet] 5 mg PO DAILY 11/08/18 12/01/18 Loratadine [Allergy Relief] 10 mg PO DAILY 12/01/18 12/01/18 Previous Rx's Medication Instructions Recorded Albuterol Sulfate [Proair Hfa 2 puffs IH Q4HP PRN #1 inh 09/15/18 90mcg/puff Inh] clindamycin HCl 300 mg capsule 300 mg PO TID 10 Days #30 cap 12/04/18 fluconazole 150 mg tablet 150 mg PO DAILY 10 Days #10 tab 12/04/18 Allergies Allergy/AdvReac Type Severity Reaction Status Date / Time Penicillins [PENICILLINS] Allergy Severe I-HIVES Verified 11/23/18 17:38 [facility] History - Hepatitis A Screen Drug use history?: No High risk sexual behaviors?: No History of sexually transmitted infection?: No Currently employed?: No Childcare worker?: No Do you have indoor plumbing?: Yes Do you have electricity?: Yes Attestation statement:: This patient has been screened for Hepatitis A risk factors. I have reviewed the patient's past medical history: Yes Medical History: Reports:: Diabetes Mellitus Type 1, Hyperlipidemia, H ypertension, Renal Disease, Renal Insufficiency Denies:: Cancer, MRSA Other Medical History: Reports: Other Comment: high heart rate Laterality Cases: Bilateral: Tonsillectomy Other Surgeries: Yes: Other Amputation: No Fractures: No - Social History Smoking Status: Unknown if ever smoked Tobacco Type: smokeless tobacco # Packs/Day (cigarettes): 1 Alcohol Intake: never Alcohol Intake Frequency:: a few times a month Substance Use Type: denies use Occupational Status: unemployed Housing: apartment Household Members: spouse, family, children - Psychiatric History Expresses thoughts of harming self/others: None Suicide Plan Description: No Plan Family Hx:: Cancer, Diabetes, Hyperlipidemia, Hypertension, Stroke ROS Obtained: Yes All systems reviewed & no additional complaints Physical Exam - General General appearance: alert, in no apparent distress - Head Head exam: atraumatic, normocephalic, normal inspection - Eye Eye exam: Present: normal appearance, PERRL, EOMI. Absent: scleral icterus, nystagmus - ENT ENT exam: Present: normal exam, normal oropharynx, mucous membranes dry, TM's normal bilaterally, normal external ear exam - Neck Neck exam: Present: normal inspection, full ROM, trachea midline. Absent: tenderness, meningismus, lymphadenopathy - Chest Chest inspection: Present: normal inspection, symmetric chest wall rise. Absent: tenderness - Respiratory Respiratory exam: Present: normal lung sounds bilaterally. Absent: respiratory distress, wheezes - Cardiovascular Cardiovascular exam: Present: regular rate, normal rhythm. Absent: JVD - Abdominal Exam Abdominal exam: Present: soft, normal bowel sounds. Absent: distention, tenderness, guarding, rebound, rigidity - exam: Present: normal inspection, other (Strong equal bilateral femoral pul se.) - Extremities Exam Extremities exam: Present: normal inspection, full ROM, normal capillary refill. Absent: calf tenderness - Back Exam Back exam: Present: normal inspection. Absent: tenderness - Neurological Exam Neurological exam: Present: alert, oriented X3, CN II-XII intact, motor sensory deficit, reflexes normal - Psychiatric Psychiatric exam: Present: normal affect, normal mood - Skin Skin exam: Present: warm, dry, intact, normal color - Lymphatic Lymphatic Findings: no adenopathy
[2018-12-15 14:38] LABS: Basophils # 0.1 K/mm3 (0-0.2); Basophils % 0.5 % (0.1-2.0); Eosinophils % 0.1 % (0.1-12.0); Hemoglobin 13.9 g/dL (14.1-18.0); Lymphocytes # 1.5 K/mm3 (0.7-4.5); Mean Corpuscular HGB Conc 28.9 g/dL (31.8-35.4); Mean Corpuscular Hemoglobin 29.9 pg (27.0-31.2); Mean Corpuscular Volume 103.6 fl (80-94); Mean Platelet Volume 8.4 fl (7.4-10.4); Monocytes # 0.3 K/mm3 (0.1-1.0); Monocytes % 2.7 % (1.7-9.3); Neutrophils # 10.5 K/mm3 (1.8-7.8); Neutrophils % 84.7 % (37.0-80.0); Platelet Count 621 K/mm3 (142-424); Red Blood Count 4.63 M/mm3 (4.60-6.20); Red Cell Distribution Width 13.8 % (11.5-17.5); White Blood Count 12.4 K/mm3 (4.8-10.8)
[2018-12-15 14:44] LABS: Alanine Aminotransferase 38 U/L (12-78); Albumin Level 2.6 gm/dL (3.4-5.0); Albumin/Globulin Ratio 0.5 (1.1-1.8); Alkaline Phosphatase 404 U/L (46-116); Anion Gap 37.3 mEq/L (5-15); Aspartate Amino Transferase 19 U/L (15-37); Bilirubin,Total 0.7 mg/dL (0.2-1.0); Blood Urea Nitrogen 64 mg/dL (7-18); Calcium 9.5 mg/dL (8.5-10.1); Chloride 88 mmol/L (98-107); Globulin 5.4 gm/dl (1.3-3.2); Potassium 4.3 mmoL/L (3.5-5.1); Sodium 130 mmol/L (136-145)
[2018-12-15 14:48] LABS: Acetone, Serum (Rapid) Small (None Detect); Carbon Dioxide 9 mmol/L (21.0-32.0)
[2018-12-15 14:58] LABS: Glucose 1034 mg/dL (74-106)
[2018-12-15 15:02] LABS: ABG Base Excess -18.8 mmol/L (-2.4-2.3); ABG HCO3 8.2 mmhg (22.0-26.0); ABG Oxygen Saturation 99 % (90-100); ABG PH 7.27 mmol/L (7.35-7.45); ABG PO2 162.7 mmhg (80-100); ABG TCO2 8.8 mmhg (23-27)
[2018-12-15 15:05] LABS: Oxygen room air %
[2018-12-15 15:06] LABS: ABG PCO2 18.4 mmhg (35.0-45.0); Allen's Test Acceptable
[2018-12-15 18:40] LABS: Acetone, Serum (Rapid) Small (None Detect)
[2018-12-15 18:43] LABS: Anion Gap 25.7 mEq/L (5-15); Blood Urea Nitrogen 60 mg/dL (7-18); Calcium 9.5 mg/dL (8.5-10.1); Carbon Dioxide 18 mmol/L (21.0-32.0); Chloride 99 mmol/L (98-107); Potassium 3.7 mmoL/L (3.5-5.1); Sodium 139 mmol/L (136-145)
[2018-12-15 18:47] LABS: Glucose 339 mg/dL (74-106)
[2018-12-15 22:25] LABS: Calcium 9.2 mg/dL (8.5-10.1)
[2018-12-16 02:13] LABS: Anion Gap 16.1 mEq/L (5-15); Calcium 8.8 mg/dL (8.5-10.1); Potassium 4.1 mmoL/L (3.5-5.1)
[2018-12-16 03:37] LABS: Microscopic, Urine URINE MICROSCOPIC (MICROSCOPIC)
[2018-12-16 03:41] LABS: Appearance,Urine TURBID (Clear); Bilirubin,Urine Negative (Negative); Blood, Urine 3+ (Negative); Color,Urine YELLOW (Yellow); Glucose,Urine (UA) 1+ (Negative); Ketones,Urine 1+ (Negative); Leukocyte Esterase,Urine 2+ (Negative); Protein,Urine 3+ (Negative); Urobilinogen,Urine 0.2 EU/dl (0.2)
[2018-12-16 03:45] LABS: RBC,Urine 20-50 #/hpf (0-3); WBC,Urine TNTC #/hpf (0-3)
[2018-12-16 06:05] LABS: Basophils % 0.4 % (0.1-2.0); Eosinophils # 0.1 K/mm3 (0.0-0.4); Hematocrit 32.7 % (42.0-52.0); Lymphocytes # 2.4 K/mm3 (0.7-4.5); Lymphocytes % 21.2 % (10-50); Mean Corpuscular HGB Conc 31.8 g/dL (31.8-35.4); Mean Corpuscular Hemoglobin 29.7 pg (27.0-31.2); Mean Corpuscular Volume 93.5 fl (80-94); Mean Platelet Volume 7.5 fl (7.4-10.4); Monocytes # 0.5 K/mm3 (0.1-1.0); Neutrophils # 8.2 K/mm3 (1.8-7.8); Neutrophils % 73.4 % (37.0-80.0); Platelet Count 411 K/mm3 (142-424); Red Cell Distribution Width 14.2 % (11.5-17.5); White Blood Count 11.1 K/mm3 (4.8-10.8)
[2018-12-16 06:07] LABS: Hemoglobin 10.4 g/dL (14.1-18.0)
[2018-12-16 06:16] LABS: Calcium 8.7 mg/dL (8.5-10.1); Phosphorous 2.1 mg/dL (2.4-4.9)
--- NOTE | 2018-12-16 09:44 | H&P/Discharge Summary ---
General - General Admission date:: 12/15/18 Discharge date: 12/16/18 *Admission Date: 12/15/18 *Chief complaint: DKA, MALCOM *History of present illness: Mr. Huber is a 38-year-old white male with severe uncontrolled diabetes mellitus. He is admitted periodically with hyperglycemia and DKA, 2 admissions within the past 2 months and a transfer to from our ER in that same time span. He additionally has renal insufficiency, recurring UTIs, neuropathy, and HTN. On admission he was found to have a high AG, Hyperglycemia (gluc >1000), pseudohyponatremia, MALCOM. Initiated on DKA protocol with 2L IVF, Insulin gtt. Patient responded well overnight with closure of gap by morning. Of note, he is catheter dependent and was having urinary retention. Noted to have quite dirty urine upon cathing. More alert on exam this morning, tolerating PO intake. Denies fevers, SOA, CP, TAYLOR, N/V. C/o mild abdominal pain, pain in his genital region. The patient does not have a primary care physician. He has been set up with Endocrinology but has yet to follow-up for various reasons including transportation issues. He has had a chronic urinary tract infection which complicates his diabetes and is a likely result of uncontrolled diabetes as well as potential etiology for recurrent DKA. On interview he reports being compliant with his insulin regimen, having "HI" on his meter for the past 2 days, checking FSBS multiple times a day. This is in contract to history obtained by nursing where he reports having missed insulin doses and not checked glucose levels in the past 2 days. He has a History of insulin pump use, was previously better controlled. His uncontrolled state has worsened with his cessation of the pump. [facility] History I have reviewed the patient's past medical history: Yes Medical History: Reports:: Diabetes Mellitus Type 1, Hyperlipidemia, Hypertension, Renal Disease, Renal Insufficiency Denies:: Cancer, Diabetes Mellitus Type 2, MRSA Have you ever received a pneumonia vaccine?: Yes Have you received a flu vaccine this season?: Yes Other Medical History: Reports: Other Laterality Cases: Bilateral: Tonsillectomy Other Surgeries: Yes: Other Amputation: No Fractures: No - *Social History Educational Level: Attended High School Smoking Status: Smoker, status unknown Tobacco Type: smokeless tobacco # Packs/Day (cigarettes): 0 Alcohol Intake: never Alcohol Intake Frequency:: a few times a month Substance Use Type: denies use Occupational Status: unemployed Housing: apartment Household Members: spouse, family, children Travel in the last 8 weeks: None - Psychiatric History Expresses thoughts of harming self/others: None Suicide Plan Description: No Plan Family Hx:: Cancer, Diabetes, Hyperlipidemia, Hypertension, Stroke Review of Systems - Review of Systems Review of systems:: pertinent systems reviewed and negative unless documented below Exam Vital signs and Labs for Last 24 Hours: Temp Pulse Resp BP Pulse Ox 98.7 F 97 H 19 167/99 H 98 12/16/18 08:00 12/16/18 08:00 12/16/18 08:00 12/16/18 08:00 12/16/18 08:00 Laboratory Results - last 24 hr 12/15/18 14:16: WBC 12.4 H, RBC 4.63, Hgb 13.9 L, Hct 48.0, MCV 103.6 H, MCH 29.9, MCHC 28.9 L, RDW 13.8, Plt Count 621 H, MPV 8.4, Neut % (Auto) 84.7 H, Lymph % (Auto) 12.0, [place] % (Auto) 2.7, Eos % (Auto) 0.1, Baso % (Auto) 0.5, Neut # (Auto) 10.5 H, Lymph # (Auto) 1.5, [place] # (Auto) 0.3, Eos # (Auto) 0.0, Baso # (Auto) 0.1 12/15/18 14:16: Sodium 130 L, Potassium 4.3, Chloride 88 L, Carbon Dioxide 9 L*, Anion Gap 37.3 H, BUN 64 H, Creatinine 3.96 H, Estimated Creat Clear 25, Estimated GFR 17 L*, Est GFR ( Amer) 21 L, Glucose 1034 H*, Calcium 9.5, Total Bilirubin 0.7, AST 19, ALT 38, Alkaline Phosphatase 404 H, Total Protein 8.0, Albumin 2.6 L, Globulin 5.4 H, Albumin/Globulin Ratio 0.5 L, Acetone Level Small 12/15/18 14:20: Specimen Source Right radial, O2 % room air, ABG pH 7.27 L, ABG pCO2 18.4 L, ABG pO2 162.7 H, ABG HCO3 8.2 L, ABG Total CO2 8.8 L, ABG O2 Saturation 99, ABG Base Excess -18.8 L, [place] Test Acceptable 12/15/18 14:34: Lactate 3.3 H 12/15/18 17:16: POC Glucose 371 H* 12/15/18 18:00: Sodium 139, Potassium 3.7, Chloride 99, Carbon Dioxide 18 L D, Anion Gap 25.7 H, BUN 60 H, Creatinine 3.74 H, Estimated Creat Clear 24, Estim ated GFR 18 L*, Est GFR ( Amer) 22 L, Glucose 339 H D, Calcium 9.5, Acetone Level Small 12/15/18 18:48: Lactate 4.7 H 12/15/18 20:09: POC Glucose 148 H 12/15/18 20:37: POC Glucose 114 H 12/15/18 21:00: POC Glucose 118 H 12/15/18 21:15: Lactate 1.4 12/15/18 21:53: POC Glucose 164 H 12/15/18 22:10: Sodium 140, Potassium 4.0, Chloride 104, Carbon Dioxide 23 D, Anion Gap 17.0 H, BUN 58 H, Creatinine 3.16 H, Estimated Creat Clear 28, Estimated GFR 22 L, Est GFR ( Amer) 27 L D, Glucose 172 H D, Calcium 9.2 12/15/18 23:01: POC Glucose 156 H 12/16/18 00:15: POC Glucose 129 H 12/16/18 01:05: POC Glucose 125 H 12/16/18 02:00: Lactate 2.6 H 12/16/18 02:00: Sodium 141, Potassium 4.1, Chloride 105, Carbon Dioxide 24, Anion Gap 16.1 H, BUN 52 H, Creatinine 3.08 H, Estimated Creat Clear 29, Estimated GFR 23 L, Est GFR ( Amer) 28 L, Glucose 124 H D, Calcium 8.8 12/16/18 02:08: POC Glucose 154 H 12/16/18 03:00: Urine Color Yellow, Urine Appearance Turbid, Urine pH 6.0, Ur Specific [place] 1.020, Urine Protein 3+, Urine Glucose (UA) 1+, Urine Ketones 1+, Urine Blood 3+, Urine Nitrate Negative, Urine Bilirubin Negative, Urine Urobilinogen 0.2, Ur Leukocyte Esterase 2+ A, Urine RBC 20-50, Urine WBC Tntc 12/16/18 03:53: POC Glucose 88 12/16/18 04:56: POC Glucose 94 12/16/18 05:50: WBC 11.1 H, RBC 3.50 L, Hgb 10.4 L D, Hct 32.7 L, MCV 93.5, MCH 29.7, MCHC 31.8, RDW 14.2, Plt Count 411 D, MPV 7.5, Neut % (Auto) 73.4, Lymph % (Auto) 21.2, [place] % (Auto) 4.0, Eos % (Auto) 1.0, Baso % (Auto) 0.4, Neut # (Auto) 8.2 H, Lymph # (Auto) 2.4, [place] # (Auto) 0.5, Eos # (Auto) 0.1, Baso # (Auto) 0.0 12/16/18 05:50: Sodium 137, Potassium 4.0, Chloride 102, Carbon Dioxide 24, Anion Gap 15.0, BUN 46 H, Creatinine 2.72 H, Estimated Creat Clear 34, Estimated GFR 27 L, Est GFR ( Amer) 32 L, Glucose 136 H, Calcium 8.7, Phosphorus 2.1 L, Magnesium 1.8 12/16/18 05:50: Acetone Level None detected 12/16/18 06:01: POC Glucose 188 H 12/16/18 06:49: POC Glucose 147 H 12/16/18 08:51: POC Glucose 393 H* I & O for Last 24 hours: Intake & Output 12/13/18 12/14/18 12/15/18 12/16/18 23:59 23:59 23:59 23:59 Intake Total 2900 / 2900 1969 / 1969 Output Total 200 / 200 1250 / 1250 Balance 2700 / 2700 720 / 720 Weight 61.235 kg 63.163 kg - Constitutional thin - *Routine HEENT Exam Head: Present: normocephalic, atraumatic Eye: Present: EOMI, PERRL ENT: Present: mucous membranes moist - *Routine Neck Exam Present: supple, full ROM. Absent: JVD - *Routine Respiratory Exam Present: CTA bilaterally. Absent: accessory muscle use, prolonged expiratory phase, wheezes, crackles - *Routine Cardiovascular Exam Present: Normal S1, Normal S2, tachycardia. Absent: murmur - *Routine Abdominal Exam Present: soft, normoactive bowel sounds, tenderness (minimal non focal with increased TTP in suprapubic region.) - *Routine Rectal Exam Patient deferred: visual exam - *Routine Exam Patient deferred: penile exam - *Routine Extremities Exam Absent: cyanosis, clubbing, edema - *Routine Skin Exam Present: intact. Absent: cyanosis, erythema - *Routine Neurological Exam Present: alert, oriented X3. Absent: altered mental status - Routine Psychiatric Exam Present: normal affect, cooperative Hospital Course Hospital Course: Admitted with initiation of DKA protocol. Responded to insulin drip overnight with closure of anion gap. Initiated on half dose Lantus at bedtime last night to assist with getting long-acting insulin on board. This morning on exam patient's gap is closed, tolerating p.o. intake. Lab review showed improvement in kidney function though still significantly abnormal. Had a long discussion this morning with patient about home regimen of insulin and necessity of close follow-up. Stressed the consequences of continuing to have uncontrolled diabetes and missing follow-up appointments. Additionally patient noted to have significant urinary tract infection after obtaining cath urine. Initiated on treatment with Levaquin. Plan to complete course at home for 14 days. Have strong reservations about patient's potential success with therapy. Over the course of the day, the patietn tolerated PO intake. Had controlled FSBS with home insulin regimen. Remained afebrile, no SOA, CP, TAYLOR, N/V/D. Stable for DC home. Results Labs on day of discharge: Labs from last 24 hours 12/16/18 12/16/18 12/16/18 08:51 06:49 06:01 WBC RBC Hgb Hct MCV MCH MCHC RDW Plt Count MPV Neut % (Auto) Lymph % (Auto) [place] % (Auto) Eos % (Auto) Baso % (Auto) Neut # (Auto) Lymph # (Auto) [place] # (Auto) Eos # (Auto) Baso # (Auto) Specimen Source O2 % ABG pH ABG pCO2 ABG pO2 ABG HCO3 ABG Total CO2 ABG O2 Saturation ABG Base Excess [place] Test Sodium Potassium Chloride Carbon Dioxide Anion Gap BUN Creatinine Estimated Creat Clear Estimated GFR Est GFR ( Amer) Glucose POC Glucose 393 H* 147 H 188 H Lactate Calcium Phosphorus Magnesium Total Bilirubin AST ALT Alkaline Phosphatase Total Protein Albumin Globulin Albumin/Globulin Ratio Urine Color Urine Appearance Urine pH Ur Specific [place] Urine Protein Urine Glucose (UA) Urine Ketones Urine Blood Urine Nitrate Urine Bilirubin Urine Urobilinogen Ur Leukocyte Esterase Urine RBC Urine WBC Acetone Level 12/16/18 12/16/18 12/16/18 05:50 05:50 05:50 WBC 11.1 H RBC 3.50 L Hgb 10.4 L D Hct 32.7 L MCV 93.5 MCH 29.7 MCHC 31.8 RDW 14.2 Plt Count 411 D MPV 7.5 Neut % (Auto) 73.4 Lymph % (Auto) 21.2 [place] % (Auto) 4.0 Eos % (Auto) 1.0 Baso % (Auto) 0.4 Neut # (Auto) 8.2 H Lymph # (Auto) 2.4 [place] # (Auto) 0.5 Eos # (Auto) 0.1 Baso # (Auto) 0.0 Specimen Source O2 % ABG pH ABG pCO2 ABG pO2 ABG HCO3 ABG Total CO2 ABG O2 Saturation ABG Base Excess [place] Test Sodium 137 Potassium 4.0 Chloride 102 Carbon Dioxide 24 Anion Gap 15.0 BUN 46 H Creatinine 2.72 H Estimated Creat Clear 34 Estimated GFR 27 L Est GFR ( Amer) 32 L Glucose 136 H POC Glucose Lactate Calcium 8.7 Phosphorus 2.1 L Magnesium 1.8 Total Bilirubin AST ALT Alkaline Phosphatase Total Protein Albumin Globulin Albumin/Globulin Ratio Urine Color Urine Appearance Urine pH Ur Specific [place] Urine Protein Urine Glucose (UA) Urine Ketones Urine Blood Urine Nitrate Urine Bilirubin Urine Urobilinogen Ur Leukocyte Esterase Urine RBC Urine WBC Acetone Level None detected 12/16/18 12/16/18 12/16/18 04:56 03:53 03:00 WBC RBC Hgb Hct MCV MCH MCHC RDW Plt Count MPV Neut % (Auto) Lymph % (Auto) [place] % (Auto) Eos % (Auto) Baso % (Auto) Neut # (Auto) Lymph # (Auto) [place] # (Auto) Eos # (Auto) Baso # (Auto) Specimen Source O2 % ABG pH ABG pCO2 ABG pO2 ABG HCO3 ABG Total CO2 ABG O2 Saturation ABG Base Excess [place] Test Sodium Potassium Chloride Carbon Dioxide Anion Gap BUN Creatinine Estimated Creat Clear Estimated GFR Est GFR ( Amer) Glucose POC Glucose 94 88 Lactate Calcium Phosphorus Magnesium Total Bilirubin AST ALT Alkaline Phosphatase Total Protein Albumin Globulin Albumin/Globulin Ratio Urine Color Yellow Urine Appearance Turbid Urine pH 6.0 Ur Specific [place] 1.020 Urine Protein 3+ Urine Glucose (UA) 1+ Urine Ketones 1+ Urine Blood 3+ Urine Nitrate Negative Urine Bilirubin Negative Urine Urobilinogen 0.2 Ur Leukocyte Esterase 2+ A Urine RBC 20-50 Urine WBC Tntc Acetone Level 12/16/18 12/16/18 12/16/18 02:08 02:00 02:00 WBC RBC Hgb Hct MCV MCH MCHC RDW Plt Count MPV Neut % (Auto) Lymph % (Auto) [place] % (Auto) Eos % (Auto) Baso % (Auto) Neut # (Auto) Lymph # (Auto) [place] # (Auto) Eos # (Auto) Baso # (Auto) Specimen Source O2 % ABG pH ABG pCO2 ABG pO2 ABG HCO3 ABG Total CO2 ABG O2 Saturation ABG Base Excess [place] Test Sodium 141 Potassium 4.1 Chloride 105 Carbon Dioxide 24 Anion Gap 16.1 H BUN 52 H Creatinine 3.08 H Estimated Creat Clear 29 Estimated GFR 23 L Est GFR ( Amer) 28 L Glucose 124 H D POC Glucose 154 H Lactate 2.6 H Calcium 8.8 Phosphorus Magnesium Total Bilirubin AST ALT Alkaline Phosphatase Total Protein Albumin Globulin Albumin/Globulin Ratio Urine Color Urine Appearance Urine pH Ur Specific [place] Urine Protein Urine Glucose (UA) Urine Ketones Urine Blood Urine Nitrate Urine Bilirubin Urine Urobilinogen Ur Leukocyte Esterase Urine RBC Urine WBC Acetone Level 12/16/18 12/16/18 12/15/18 01:05 00:15 23:01 WBC RBC Hgb Hct MCV MCH MCHC RDW Plt Count MPV Neut % (Auto) Lymph % (Auto) [place] % (Auto) Eos % (Auto) Baso % (Auto) Neut # (Auto) Lymph # (Auto) [place] # (Auto) Eos # (Auto) Baso # (Auto) Specimen Source O2 % ABG pH ABG pCO2 ABG pO2 ABG HCO3 ABG Total CO2 ABG O2 Saturation ABG Base Excess [place] Test Sodium Potassium Chloride Carbon Dioxide Anion Gap BUN Creatinine Estimated Creat Clear Estimated GFR Est GFR ( Amer) Glucose POC Glucose 125 H 129 H 156 H Lactate Calcium Phosphorus Magnesium Total Bilirubin AST ALT Alkaline Phosphatase Total Protein Albumin Globulin Albumin/Globulin Ratio Urine Color Urine Appearance Urine pH Ur Specific [place] Urine Protein Urine Glucose (UA) Urine Ketones Urine Blood Urine Nitrate Urine Bilirubin Urine Urobilinogen Ur Leukocyte Esterase Urine RBC Urine WBC Acetone Level 12/15/18 12/15/18 12/15/18 22:10 21:53 21:15 WBC RBC Hgb Hct MCV MCH MCHC RDW Plt Count MPV Neut % (Auto) Lymph % (Auto) [place] % (Auto) Eos % (Auto) Baso % (Auto) Neut # (Auto) Lymph # (Auto) [place] # (Auto) Eos # (Auto) Baso # (Auto) Specimen Source O2 % ABG pH ABG pCO2 ABG pO2 ABG HCO3 ABG Total CO2 ABG O2 Saturation ABG Base Excess [place] Test Sodium 140 Potassium 4.0 Chloride 104 Carbon Dioxide 23 D Anion Gap 17.0 H BUN 58 H Creatinine 3.16 H Estimated Creat Clear 28 Estimated GFR 22 L Est GFR ( Amer) 27 L D Glucose 172 H D POC Glucose 164 H Lactate 1.4 Calcium 9.2 Phosphorus Magnesium Total Bilirubin AST ALT Alkaline Phosphatase Total Protein Albumin Globulin Albumin/Globulin Ratio Urine Color Urine Appearance Urine pH Ur Specific [place] Urine Protein Urine Glucose (UA) Urine Ketones Urine Blood Urine Nitrate Urine Bilirubin Urine Urobilinogen Ur Leukocyte Esterase Urine RBC Urine WBC Acetone Level 12/15/18 12/15/18 12/15/18 21:00 20:37 20:09 WBC RBC Hgb Hct MCV MCH MCHC RDW Plt Count MPV Neut % (Auto) Lymph % (Auto) [place] % (Auto) Eos % (Auto) Baso % (Auto) Neut # (Auto) Lymph # (Auto) [place] # (Auto) Eos # (Auto) Baso # (Auto) Specimen Source O2 % ABG pH ABG pCO2 ABG pO2 ABG HCO3 ABG Total CO2 ABG O2 Saturation ABG Base Excess [place] Test Sodium Potassium Chloride Carbon Dioxide Anion Gap BUN Creatinine Estimated Creat Clear Estimated GFR Est GFR ( Amer) Glucose POC Glucose 118 H 114 H 148 H Lactate Calcium Phosphorus Magnesium Total Bilirubin AST ALT Alkaline Phosphatase Total Protein Albumin Globulin Albumin/Globulin Ratio Urine Color Urine Appearance Urine pH Ur Specific [place] Urine Protein Urine Glucose (UA) Urine Ketones Urine Blood Urine Nitrate Urine Bilirubin Urine Urobilinogen Ur Leukocyte Esterase Urine RBC Urine WBC Acetone Level 12/15/18 12/15/18 12/15/18 18:48 18:00 17:16 WBC RBC Hgb Hct MCV MCH MCHC RDW Plt Count MPV Neut % (Auto) Lymph % (Auto) [place] % (Auto) Eos % (Auto) Baso % (Auto) Neut # (Auto) Lymph # (Auto) [place] # (Auto) Eos # (Auto) Baso # (Auto) Specimen Source O2 % ABG pH ABG pCO2 ABG pO2 ABG HCO3 ABG Total CO2 ABG O2 Saturation ABG Base Excess [place] Test Sodium 139 Potassium 3.7 Chloride 99 Carbon Dioxide 18 L D Anion Gap 25.7 H BUN 60 H Creatinine 3.74 H Estimated Creat Clear 24 Estimated GFR 18 L* Est GFR ( Amer) 22 L Glucose 339 H D POC Glucose 371 H* Lactate 4.7 H Calcium 9.5 Phosphorus Magnesium Total Bilirubin AST ALT Alkaline Phosphatase Total Protein Albumin Globulin Albumin/Globulin Ratio Urine Color Urine Appearance Urine pH Ur Specific [place] Urine Protein Urine Glucose (UA) Urine Ketones Urine Blood Urine Nitrate Urine Bilirubin Urine Urobilinogen Ur Leukocyte Esterase Urine RBC Urine WBC Acetone Level Small 12/15/18 12/15/18 12/15/18 14:34 14:20 14:16 WBC RBC Hgb Hct MCV MCH MCHC RDW Plt Count MPV Neut % (Auto) Lymph % (Auto) [place] % (Auto) Eos % (Auto) Baso % (Auto) Neut # (Auto) Lymph # (Auto) [place] # (Auto) Eos # (Auto) Baso # (Auto) Specimen Source Right radial O2 % room air ABG pH 7.27 L ABG pCO2 18.4 L ABG pO2 162.7 H ABG HCO3 8.2 L ABG Total CO2 8.8 L ABG O2 Saturation 99 ABG Base Excess -18.8 L [place] Test Acceptable Sodium 130 L Potassium 4.3 Chloride 88 L Carbon Dioxide 9 L* Anion Gap 37.3 H BUN 64 H Creatinine 3.96 H Estimated Creat Clear 25 Estimated GFR 17 L* Est GFR ( Amer) 21 L Glucose 1034 H* POC Glucose Lactate 3.3 H Calcium 9.5 Phosphorus Magnesium Total Bilirubin 0.7 AST 19 ALT 38 Alkaline Phosphatase 404 H Total Protein 8.0 Albumin 2.6 L Globulin 5.4 H Albumin/Globulin Ratio 0.5 L Urine Color Urine Appearance Urine pH Ur Specific [place] Urine Protein Urine Glucose (UA) Urine Ketones Urine Blood Urine Nitrate Urine Bilirubin Urine Urobilinogen Ur Leukocyte Esterase Urine RBC Urine WBC Acetone Level Small 12/15/18 14:16 WBC 12.4 H RBC 4.63 Hgb 13.9 L Hct 48.0 MCV 103.6 H MCH 29.9 MCHC 28.9 L RDW 13.8 Plt Count 621 H MPV 8.4 Neut % (Auto) 84.7 H Lymph % (Auto) 12.0 [place] % (Auto) 2.7 Eos % (Auto) 0.1 Baso % (Auto) 0.5 Neut # (Auto) 10.5 H Lymph # (Auto) 1.5 [place] # (Auto) 0.3 Eos # (Auto) 0.0 Baso # (Auto) 0.1 Specimen Source O2 % ABG pH ABG pCO2 ABG pO2 ABG HCO3 ABG Total CO2 ABG O2 Saturation ABG Base Excess [place] Test Sodium Potassium Chloride Carbon Dioxide Anion Gap BUN Creatinine Estimated Creat Clear Estimated GFR Est GFR ( Amer) Glucose POC Glucose Lactate Calcium Phosphorus Magnesium Total Bilirubin AST ALT Alkaline Phosphatase Total Protein Albumin Globulin Albumin/Globulin Ratio Urine Color Urine Appearance Urine pH Ur Specific [place] Urine Protein Urine Glucose (UA) Urine Ketones Urine Blood Urine Nitrate Urine Bilirubin Urine Urobilinogen Ur Leukocyte Esterase Urine RBC Urine WBC Acetone Level DS: Diagnosis - Discharge Diagnosis (1) Diabetic ketoacidosis Status: Resolved Problem details: Resolved (2) IDDM (insulin dependent diabetes mellitus) Status: Acute Problem details: Poorly controlled. Restart regimen as per previously discussed and plan and med rec.will need close follow-up later this week in clinic where adjustments will be made at that time.. (3) Non compliance w medication regimen Status: Chronic Problem details: Complicates all aspects of his care (4) Acute on chronic renal failure Status: Acute Problem details: Improvement with fluid resuscitation, suspect due to dehydration. Will need repeat lab work when follows up in clinic later this week. (5) UTI (urinary tract infection) Status: Chronic Problem details: initiated Levaquin. Given persistent infection, need for daily catheterization, lower abdominal pain, concern for prostatitis (prostate colonization) versus strictly UTI. Plan to treat with Levaquin for 14 days. Discharge Medications - Medications for Discharge Home Medication List at Discharge: New Carvedilol [Coreg 6.25mg Tablet] 6.25 mg PO BID 30 Days #60 tab levoFLOXacin [Levaquin 750mg tablet] 750 mg PO Q48H 14 Days #7 tab Insulin Glargine,Hum.rec.anlog [Insulin Glargine 100 Units/mL 3mL flexpen] 25 unit SQ HS insuln.pen Continue Albuterol Sulfate [Proair Hfa 90mcg/puff Inh] 2 puffs IH Q4HP PRN #1 inh PRN Reason: Shortness Of Breath Or Wheezing Gabapentin [Neurontin 800mg Tab] 800 mg PO QID Insulin Aspart [Novolog] 0 unit SQ DIRECTED #0 Loratadine [Allergy Relief] 10 mg PO DAILY Discontinued insulin glargine (U- 100) 100 unit/mL subcutaneous solution 35 unit SQ HS ml Carvedilol [Coreg 3.125mg Tablet] 3.125 mg PO BID Lisinopril [Lisinopril 5mg Tablet] 5 mg PO DAILY Disposition Disposition: Home, Self-Care
[2018-12-16 10:14] LABS: Anion Gap 19.6 mEq/L (5-15); Calcium 8.4 mg/dL (8.5-10.1); Potassium 3.6 mmoL/L (3.5-5.1)
== END 2018-12-16 15:01 | disposition home or self-care (01) | DRG 638 ==
LOC: ER 14:05 → ICU 15:47
PROVIDERS: ADMIT Internal Medicine Adolescent Medicine; ATTEND Internal Medicine Adolescent Medicine
CPT/HCPCS: J1956

== ENCOUNTER → 2018-12-21 12:04 | Outpatient (CLI) | payer MEDICARE, MEDICAID, SELFPAY ==
[2018-12-21 13:47] LABS: Hemoglobin A1C 13.1 % (0.0-7.0)
[2018-12-21 14:23] LABS: Alanine Aminotransferase 228 U/L (12-78); Albumin Level 2.7 gm/dL (3.4-5.0); Albumin/Globulin Ratio 0.6 (1.1-1.8); Anion Gap 22.3 mEq/L (5-15); Aspartate Amino Transferase 442 U/L (15-37); Bilirubin,Total 0.3 mg/dL (0.2-1.0); Blood Urea Nitrogen 38 mg/dL (7-18); Calcium 9.6 mg/dL (8.5-10.1); Carbon Dioxide 21 mmol/L (21.0-32.0); Chloride 95 mmol/L (98-107); Creatinine,Serum 2.34 mg/dL (0.70-1.30); Estimated Glomerular Filt Rate 32 ml/min (>60); GFR (African American) 38 ML/MIN (>60); Globulin 4.4 gm/dl (1.3-3.2); Glucose 143 mg/dL (74-106); Potassium 4.3 mmoL/L (3.5-5.1); Sodium 134 mmol/L (136-145); Total Protein,Serum 7.1 gm/dL (6.4-8.2)
[2018-12-21 15:26] LABS: Alkaline Phosphatase 1332 U/L (46-116)
== END ==
PROVIDERS: Visit Provider Internal Medicine Adolescent Medicine
DX: E10.65 Type 1 diabetes mellitus with hyperglycemia (principal)
CPT/HCPCS: 36415; 80053; 83036

== ENCOUNTER 2019-02-15 22:38 | Inpatient (IN) ==
[2019-02-15 23:00] LABS: Basophils # 0.1 K/mm3 (0-0.2); Basophils % 0.5 % (0.1-2.0); Eosinophils # 0.1 K/mm3 (0.0-0.4); Eosinophils % 0.3 % (0.1-12.0); Hematocrit 53.8 % (42.0-52.0); Hemoglobin 14.6 g/dL (14.1-18.0); Lymphocytes # 0.9 K/mm3 (0.7-4.5); Lymphocytes % 5.4 % (10-50); Mean Corpuscular HGB Conc 27.1 g/dL (31.8-35.4); Mean Corpuscular Hemoglobin 30.3 pg (27.0-31.2); Mean Corpuscular Volume 111.7 fl (80-94); Monocytes # 0.7 K/mm3 (0.1-1.0); Monocytes % 4.4 % (1.7-9.3); Neutrophils # 14.2 K/mm3 (1.8-7.8); Neutrophils % 89.3 % (37.0-80.0); Platelet Count 516 K/mm3 (142-424); Red Blood Count 4.82 M/mm3 (4.60-6.20); Red Cell Distribution Width 13.9 % (11.5-17.5); White Blood Count 15.9 K/mm3 (4.8-10.8)
[2019-02-15 23:02] LABS: Acetone, Serum (Rapid) Large (None Detect)
[2019-02-15 23:06] LABS: Alanine Aminotransferase 139 U/L (12-78); Albumin Level 3.5 gm/dL (3.4-5.0); Albumin/Globulin Ratio 0.7 (1.1-1.8); Alkaline Phosphatase 717 U/L (46-116); Aspartate Amino Transferase 176 U/L (15-37); Bilirubin,Total 0.5 mg/dL (0.2-1.0); Blood Urea Nitrogen 57 mg/dL (7-18); Calcium 9.6 mg/dL (8.5-10.1); Chloride 87 mmol/L (98-107); Potassium 5.8 mmoL/L (3.5-5.1); Sodium 130 mmol/L (136-145); Total Protein,Serum 8.5 gm/dL (6.4-8.2)
[2019-02-15 23:15] LABS: Microscopic, Urine URINE MICROSCOPIC (MICROSCOPIC)
[2019-02-15 23:16] LABS: Appearance,Urine CLEAR (Clear); Bilirubin,Urine Negative (Negative); Blood, Urine 1+ (Negative); Color,Urine YELLOW (Yellow); Glucose,Urine (UA) 3+ (Negative); Ketones,Urine 3+ (Negative); Leukocyte Esterase,Urine Negative (Negative); PH,Urine 5.5 (5.0-8.5); Protein,Urine 2+ (Negative); Specific Gravity, Urine 1.015 (1.005-1.030); Urobilinogen,Urine 0.2 EU/dl (0.2)
[2019-02-15 23:22] LABS: Anion Gap 43.8 mEq/L (5-15); Carbon Dioxide 5 mmol/L (21.0-32.0)
[2019-02-15 23:23] LABS: Glucose 1607 mg/dL (74-106)
[2019-02-15 23:34] LABS: WBC,Urine 20-50 #/hpf (0-3)
[2019-02-15 23:51] LABS: Lymphocytes % 8 % (10-50); Neutrophils % 83 % (42-76); Total Cells Counted 100
[2019-02-15 23:52] LABS: Hypochromasia 2+; Macrocytosis 3+
[2019-02-16 00:08] LABS: Amphetamine/Metha Screen,Urine Negative ng/mL (<1000); Barbiturates Screen,Urine Negative ng/mL (<200); Benzodiazepines Screen,Urine Negative ng/mL (<200); Cannabinoid Screen,Urine Negative ng/mL (<50); Cocaine Screen,Urine Negative ng/mL (<300); Methadone Screen,Urine Negative ng/mL (<300); Opiate Screen,Urine Negative ng/mL (<300); Phencyclidine Screen,Urine Negative ng/mL (<25)
--- NOTE | 2019-02-16 00:29 | Emergency Department Note ---
ED Disposition Clinical Impression: Renal insufficiency DKA (diabetic ketoacidosis) Qualifiers: Diabetes mellitus type: type 1 Diabetes mellitus complication detail: without coma Qualified Code(s): E10.10 - Type 1 diabetes mellitus with ketoacidosis without coma Diabetes mellitus, insulin dependent (IDDM), uncontrolled Qualifiers: Glycemic state: with hyperglycemia Qualified Code(s): E10.65 - Type 1 diabetes mellitus with hyperglycemia Disposition: Admitted As Inpatient Condition on Discharge: Serious - Critical Care Critical Care Time: No Attestation: On 02/15/19, the high probability of a clinically significant, sudden or life threatening deterioration of the following system(s) required my full and direct attention, intervention and personal management. The time I documented below is in addition to time spent performing reported procedures but includes the following listed in this critical care notation. Medical Decision Making - Medical Records Medical records reviewed: Yes: I reviewed the patient's medical records. - Michael Inquiry Pt receiving controlled substance: No Vital Signs: 02/15/19 22:38 02/15/19 22:39 02/15/19 23:08 Temperature 97.5 F L Temperature Source Oral Pulse Rate [Right] 132 H 142 H 136 H Respiratory Rate 24 24 24 Blood Pressure [Right Arm] 161/97 H 158/91 H 172/96 H Blood Pressure Mean [Right Arm] 118 113 121 Blood Pressure Source [Right Arm] Automatic Cuff Automatic Cuff Blood Pressure Position [Right Arm] Supine Supine 02 Sat by Pulse Oximetry 100 100 100 Oxygen Delivery Method Room Air Room Air Room Air 02/16/19 00:51 Temperature Temperature Source Pulse Rate [Right] 132 H Respiratory Rate 24 Blood Pressure [Right Arm] 182/107 H Blood Pressure Mean [Right Arm] 132 Blood Pressure Source [Right Arm] Automatic Cuff Blood Pressure Position [Right Arm] Supine 02 Sat by Pulse Oximetry 100 Oxygen Delivery Method Room Air - Lab Data Lab results reviewed: Yes: I reviewed the patient's lab results. Lab Results 02/15/19 22:40: WBC 15.9 H, RBC 4.82, Hgb 14.6, Hct 53.8 H, MCV 111.7 H, MCH 30.3, MCHC 27.1 L, RDW 13.9, Plt Count 516 H, MPV 10.0, Neut % (Auto) 89.3 H, Lymph % (Auto) 5.4 L, [place] % (Auto) 4.4, Eos % (Auto) 0.3, Baso % (Auto) 0.5, Neut # (Auto) 14.2 H, Lymph # (Auto) 0.9, [place] # (Auto) 0.7, Eos # (Auto) 0.1, Baso # (Auto) 0.1, Total Counted 100, Neutrophils % (Manual) 83 H, Band Neutrophils % 9.0 H, Lymphocytes % (Manual) 8 L, Platelet Estimate Slight increase, Hypochromasia 2+, Macrocytosis 3+ 02/15/19 22:40: Sodium 130 L, Potassium 5.8 H, Chloride 87 L, Carbon Dioxide 5 L*, Anion Gap 43.8 H, BUN 57 H, Creatinine 3.81 H, Estimated Creat Clear 32, Estimated GFR 18 L*, Est GFR ( Amer) 22 L, Glucose 1607 H*, Calcium 9.6, Total Bilirubin 0.5, AST 176 H, ALT 139 H, Alkaline Phosphatase 717 H, Total Protein 8.5 H, Albumin 3.5, Globulin 5.0 H, Albumin/Globulin Ratio 0.7 L, Acetone Level Large 02/15/19 22:46: ABG pH 7.14 L* 02/15/19 23:07: Urine Color Yellow, Urine Appearance Clear, Urine pH 5.5, Ur Specific [place] 1.015, Urine Protein 2+, Urine Glucose (UA) 3+, Urine Ketones 3+, Urine Blood 1+, Urine Nitrate Negative, Urine Bilirubin Negative, Urine Urobilinogen 0.2, Ur Leukocyte Esterase Negative, Urine RBC 5-10, Urine WBC 20-5 0, Ur Squamous Epith Cells 5-10 02/15/19 23:07: Urine Opiates Screen Negative, Urine Methadone Screen Negative, Ur Barbituates Screen Negative, Ur Phencyclidine Scrn Negative, Ur Amphetamines Screen Negative, U Benzodiazepines Scrn Negative, Urine Cocaine Screen Negative, U Marijuana (THC) Screen Negative Result diagrams: 02/15/19 22:40 02/15/19 22:40 Orders (Tests/Meds): ED MEDICATIONS Generic Name Dose Route Start Last Admin Trade Name Freq PRN Reason Stop Dose Admin Sodium Chloride 1,000 mls @ 999 mls/hr 02/15/19 23:15 02/15/19 23:13 Sod Chlor 0.9% 1000ml Bag IV 02/16/19 00:15 999 mls/hr .Q1H1M CASTILLO Administration Insulin Human Regular 100 unit 101 mls @ 10.1 mls/hr 02/15/19 23:45 02/15/19 23:46 / Sodium Chloride IV 03/17/19 23:44 10.1 mls/hr .Q10H CASTILLO Administration Protocol 10 UNIT/HR Sodium Chloride 1,000 mls @ 999 mls/hr 02/15/19 23:45 02/15/19 23:54 Sod Chlor 0.9% 1000ml Bag IV 02/16/19 00:45 999 mls/hr .Q1H1M CASTILLO Administration Sodium Chloride 1,000 mls @ 500 mls/hr 02/16/19 00:30 Sod Chlor 0.9% 1000ml Bag IV 03/18/19 00:29 .Q2H CASTILLO Discontinued Medications Generic Name Dose Route Start Last Admin Trade Name Freq PRN Reason Stop Dose Admin Insulin Human Regular 10 unit 02/15/19 23:20 02/15/19 23:46 Humulin R Insulin 100 Units/Ml 10ml Vial IVP 02/15/19 23:21 10 unit ONCE ONE Administration Ondansetron HCl 4 mg 02/15/19 23:16 02/15/19 23:27 Zofran 4mg/2ml Vial IV 02/15/19 23:17 4 mg ONCE ONE Administration ORDERS Category Date Time Status Chest XR -- portable [XR chest portable] Stat Exams 02/16/19 00:36 Taken Glucose,Random Stat Lab 02/16/19 00:55 Received Urine Culture Stat Micro 02/15/19 23:07 Received - Radiology Data #1 Image(s): Chest Image Reviewed: Yes I reviewed the patient's radiology image Preliminary Findings: Normal/NAD - Physician Consults Physician Consulted: arabella Reason -: Admission General Adult HPI - General Chief complaint: Hyper/Hypoglycemia Stated complaint: Hyperglycemia Time Seen by Provider: 02/15/19 22:45 Mode of Arrival: EMS Source of Information: Patient, EMS, Medical Record Limitations: No Limitations Description of Symptoms (Recalled from ER Triage Doc. by RN): Hyperglycemic emergency - History of Present Illness HPI narrative: pt had been doing ok till a couple of days ago and had increase urination and dec po intake and started vomiting tonight with hx of dka and prev admits - Onset (ago): day(s) Severity: moderate Associated symptoms: nausea/vomiting, weakness Treatments prior to arrival: none - Related Data Home Medications Medication Instructions Recorded Confirmed Gabapentin [Neurontin 800mg Tab] 800 mg PO QID 11/08/18 02/16/19 Insulin Glargine,Hum.rec.anlog 25 unit SQ HS 02/16/19 02/16/19 [Insulin Glargine 100 Units/mL 3mL flexpen] Previous Rx's Medication Instructions Recorded Albuterol Sulfate [Proair Hfa 2 puffs IH Q4HP PRN #1 inh 09/15/18 90mcg/puff Inh] Insulin Aspart [Novolog] 0 unit SQ DIRECTED #0 12/16/18 Allergies Allergy/AdvReac Type Severity Reaction Status Date / Time Penicillins [PENICILLINS] Allergy Severe I-HIVES Verified 02/15/19 22:46 [facility] History - Hepatitis A Screen Drug use history?: No High risk sexual behaviors?: No History of sexually transmitted infection?: No Currently employed?: No Childcare worker?: No Do you have indoor plumbing?: Yes Do you have electricity?: Yes Attestation statement:: This patient has been screened for Hepatitis A risk factors. I have reviewed the patient's past medical history: Yes Medical History: Reports:: Diabetes Mellitus Type 1, Hyperlipidemia, Hypertension, Renal Disease, Renal Insufficiency Denies:: Cancer, Diabetes Mellitus Type 2, MRSA Other Medical History: Reports: Other Comment: high heart rate Laterality Cases: Bilateral: Tonsillectomy Other Surgeries: Yes: Other Amputation: No Fractures: No - Social History Smoking Status: Smoker, status unknown Tobacco Type: smokeless tobacco # Packs/Day (cigarettes): 0 Alcohol Intake: never Alcohol Intake Frequency:: a few times a month Substance Use Type: denies use Occupational Status: unemployed Housing: apartment Household Members: spouse, family, children - Psychiatric History Expresses thoughts of harming self/others: None Suicide Plan Description: No Plan Family Hx:: Cancer, Diabetes, Hyperlipidemia, Hypertension, Stroke ROS Obtained: Yes All systems reviewed & no additional complaints - Constitutional Constitutional: Denies fever(s) - Eyes Eyes: Reports blurry vision - ENT Ears, Nose, Mouth, and Throat: Denies ear discharge, Denies headache(s), Denies sore throat - Cardiovascular Cardiovascular: Denies chest pain - Respiratory Respiratory: No cough - Gastrointestinal Gastrointestingal: Reports: nausea, vomiting. Denies: abdominal pain - Genitourinary Male Genitourinary: Reports erectile dysfunction, Denies hematuria - Musculoskeletal Musculoskeletal: Denies joint pain, Denies joint swelling - Integumentary/Breasts Skin/Breast: Denies rash - Neurologic Neurologic: Denies abnormal speech, Denies convulsions, Denies focal weakness, Denies headache(s), Denies seizure-like activity Physical Exam - General General appearance: lethargic - Head Head exam: normocephalic - Eye Eye exam: Present: PERRL, EOMI. Absent: scleral icterus - ENT ENT exam: Present: mucous membranes dry - Neck Neck exam: Present: trachea midline - Respiratory Respiratory exam: Present: normal lung sounds bilaterally. Absent: respiratory distress - Cardiovascular Cardiovascular exam: Present: regular rate, systolic murmur, +S3 - Abdominal Exam Abdominal exam: Present: soft - Extremities Exam Extremities exam: Absent: calf tenderness - Neurological Exam Neurological exam: Present: alert, oriented X3, CN II-XII intact. Absent: motor sensory deficit - Psychiatric Psychiatric exam: Present: normal affect - Skin Skin exam: Absent: rash
[2019-02-16 04:47] LABS: Acetone, Serum (Rapid) Moderate (None Detect)
[2019-02-16 04:54] LABS: Basophils # 0.1 K/mm3 (0-0.2); Basophils % 0.3 % (0.1-2.0); Eosinophils # 0.2 K/mm3 (0.0-0.4); Eosinophils % 0.8 % (0.1-12.0); Hematocrit 34.2 % (42.0-52.0); Lymphocytes # 2.9 K/mm3 (0.7-4.5); Lymphocytes % 15.4 % (10-50); Mean Corpuscular HGB Conc 33.3 g/dL (31.8-35.4); Mean Corpuscular Hemoglobin 30.9 pg (27.0-31.2); Mean Corpuscular Volume 92.9 fl (80-94); Mean Platelet Volume 10.5 fl (7.4-10.4); Monocytes # 0.8 K/mm3 (0.1-1.0); Monocytes % 4.5 % (1.7-9.3); Neutrophils # 14.9 K/mm3 (1.8-7.8); Neutrophils % 79.1 % (37.0-80.0); Platelet Count 314 K/mm3 (142-424); Red Blood Count 3.68 M/mm3 (4.60-6.20); Red Cell Distribution Width 14.3 % (11.5-17.5); White Blood Count 18.9 K/mm3 (4.8-10.8)
[2019-02-16 04:55] LABS: Hemoglobin 11.4 g/dL (14.1-18.0)
[2019-02-16 04:58] LABS: Anion Gap 25.9 mEq/L (5-15); Blood Urea Nitrogen 48 mg/dL (7-18); Carbon Dioxide 15 mmol/L (21.0-32.0); Chloride 112 mmol/L (98-107); Phosphorous 3.2 mg/dL (2.4-4.9); Potassium 3.9 mmoL/L (3.5-5.1); Sodium 149 mmol/L (136-145)
[2019-02-16 05:00] LABS: Calcium 8.2 mg/dL (8.5-10.1); Glucose 283 mg/dL (74-106)
--- NOTE | 2019-02-16 08:06 | History & Physical Report ---
*Admission Date: 02/16/19 *Chief complaint: Lethargy/fatigue/cystitis/DKA *History of present illness: 38-year-old white male with history of type 1 diabetes, previous insulin pump, multiple episodes of DKA, history of recurrent UTIs with urinary/bladder outlet obstruction with ongoing self-catheterization but with recurrent urinary tract infections-most recently treated [facility] in December 2018 with UTI/DKA and discharged home with 2 weeks of Levaquin therapy. He came back to the emergency department on the night of admission because he had been "crashing" for 2 days and felt like his urine was once again infected. He reports he did not call our office because "I was out of minutes on my phone." In the emergency department was significantly acidotic, positive acetone levels, significant hyperglycemia with blood sugars greater than 1600, admitted to hospital for DKA protocol after appropriate fluid boluses and insulin therapy in the emergency department. [facility] History I have reviewed the patient's past medical history: Yes Medical History: Reports:: Diabetes Mellitus Type 1, Hyperlipidemia, Hypertension, Renal Disease, Renal Insufficiency Denies:: Cancer, Diabetes Mellitus Type 2, MRSA *Have you ever received a pneumonia vaccine?: No *Have you received a flu vaccine this season?: Yes Other Medical History: Reports: Other Laterality Cases: Bilateral: Tonsillectomy Other Surgeries: Yes: Other Amputation: No Fractures: No - *Social History Educational Level: Attended High School Smoking Status: Never smoker Tobacco Type: smokeless tobacco # Packs/Day (cigarettes): 0 Alcohol Intake: never Alcohol Intake Frequency:: a few times a month Substance Use Type: denies use *Occupational Status:: unemployed Housing: apartment Household Members: significant other, family, children *Travel in the last 8 weeks: None - Psychiatric History Expresses thoughts of harming self/others: None Suicide Plan Description: No Plan Family Hx:: Cancer, Diabetes, Hyperlipidemia, Hypertension, Stroke Review of Systems - Review of Systems Review of systems:: pertinent systems reviewed and negative unless documented below - Constitutional Reports anorexia, Reports body ache(s), Reports chills - Eyes Reports blurry vision, Denies blind spots - ENT Denies abnormal hearing, Denies bleeding gums - *Cardiovascular Reports shortness of breath, Denies chest pain, Denies chest pain at rest, Denies shortness of breath with activity - *Respiratory Denies change in phlegm color, Denies chest congestion, Denies excessive phlegm production - *Gastrointestinal Reports abdominal pain, Reports belching - *Genitourinary Reports difficulty urinating, Reports painful urination, Denies difficulty with ejaculations - *Musculoskeletal Denies abnormal walking, Denies joint pain, Denies decreased muscle mass - *Neurologic Denies abnormal speech, Denies seizure-like activity, Denies localized weakness, Denies headache(s), Denies seizure-like activity Meds Home Medications Medication Instructions Recorded Confirmed Type Albuterol Sulfate [Proair Hfa 2 puffs IH Q4HP PRN #1 inh 09/15/18 02/16/19 Rx 90mcg/puff Inh] Gabapentin [Neurontin 800mg Tab] 800 mg PO QID 11/08/18 02/16/19 History Insulin Aspart [Novolog] 0 unit SQ DIRECTED #0 12/16/18 02/16/19 Rx Carvedilol [Carvedilol 6.25mg Tab] 6.25 mg pe PO BID 02/16/19 02/16/19 History Insulin Glargine,Hum.rec.anlog 25 unit SQ HS 02/16/19 02/16/19 History [Insulin Glargine 100 Units/mL 3mL flexpen] Allergies Allergy/AdvReac Type Severity Reaction Status Date / Time Penicillins [PENICILLINS] Allergy Severe I-HIVES Verified 02/16/19 02:19 Exam Vital signs and Labs for Last 24 Hours: Temp Pulse Resp BP Pulse Ox 98.4 F 109 H 20 160/98 H 100 02/16/19 07:33 02/16/19 06:00 02/16/19 01:26 02/16/19 06:00 02/16/19 06:00 Laboratory Results - last 24 hr 02/15/19 22:40: WBC 15.9 H, RBC 4.82, Hgb 14.6, Hct 53.8 H, MCV 111.7 H, MCH 30.3, MCHC 27.1 L, RDW 13.9, Plt Count 516 H, MPV 10.0, Neut % (Auto) 89.3 H, Lymph % (Auto) 5.4 L, [place] % (Auto) 4.4, Eos % (Auto) 0.3, Baso % (Auto) 0.5, Neut # (Auto) 14.2 H, Lymph # (Auto) 0.9, [place] # (Auto) 0.7, Eos # (Auto) 0.1, Baso # (Auto) 0.1, Total Counted 100, Neutrophils % (Manual) 83 H, Band Neutrophils % 9.0 H, Lymphocytes % (Manual) 8 L, Platelet Estimate Slight increase, Hypochromasia 2+, Macrocytosis 3+ 02/15/19 22:40: Sodium 130 L, Potassium 5.8 H, Chloride 87 L, Carbon Dioxide 5 L*, Anion Gap 43.8 H, BUN 57 H, Creatinine 3.81 H, Estimated Creat Clear 32, Estimated GFR 18 L*, Est GFR ( Amer) 22 L, Glucose 1607 H*, Calcium 9.6, Total Bilirubin 0.5, AST 176 H, ALT 139 H, Alkaline Phosphatase 717 H, Total Protein 8.5 H, Albumin 3.5, Globulin 5.0 H, Albumin/Globulin Ratio 0.7 L, Acetone Level Large 02/15/19 22:46: ABG pH 7.14 L* 02/15/19 23:07: Urine Color Yellow, Urine Appearance Clear, Urine pH 5.5, Ur Specific [place] 1.015, Urine Protein 2+, Urine Glucose (UA) 3+, Urine Ketones 3+, Urine Blood 1+, Urine Nitrate Negative, Urine Bilirubin Negative, Urine Urobilinogen 0.2, Ur Leukocyte Esterase Negative, Urine RBC 5-10, Urine WBC 20- 50, Ur Squamous Epith Cells 5-10 02/15/19 23:07: Urine Opiates Screen Negative, Urine Methadone Screen Negative, Ur Barbituates Screen Negative, Ur Phencyclidine Scrn Negative, Ur Amphetamines Screen Negative, U Benzodiazepines Scrn Negative, Urine Cocaine Screen Negative, U Marijuana (THC) Screen Negative 02/16/19 00:55: Random Glucose 808 H* D 02/16/19 02:35: Random Glucose 575 H* D 02/16/19 04:30: WBC 18.9 H, RBC 3.68 L, Hgb 11.4 L D, Hct 34.2 L, MCV 92.9, MCH 30.9, MCHC 33.3, RDW 14.3, Plt Count 314 D, MPV 10.5 H, Neut % (Auto) 79.1, Lymph % (Auto) 15.4, [place] % (Auto) 4.5, Eos % (Auto) 0.8, Baso % (Auto) 0.3, Neut # (Auto) 14.9 H, Lymph # (Auto) 2.9, [place] # (Auto) 0.8, Eos # (Auto) 0.2, Baso # (Auto) 0.1 02/16/19 04:30: Sodium 149 H, Potassium 3.9 D, Chloride 112 H, Carbon Dioxide 15 L D, Anion Gap 25.9 H, BUN 48 H, Creatinine 3.11 H, Estimated Creat Clear 33, Estimated GFR 23 L, Est GFR ( Amer) 28 L D, Glucose 283 H D, Calcium 8.2 L D, Phosphorus 3.2, Magnesium 2.0, Troponin I 0.02, Acetone Level Moderate I & O for Last 24 hours: Intake & Output 02/13/19 02/14/19 02/15/19 02/16/19 11:59 11:59 11:59 11:59 Intake Total 4431 / 4431 Output Total 1700 / 1700 Balance 2731 / 2731 Weight 157 lb 9.6 oz Narrative: Patient is sleeping, when awakened he is alert, oriented x2. He appears older than his stated age, close cropped hair, is arms and thorax are covered with multiplicity of tattoos and a variety of superhero motifs. Oropharynx dry but otherwise clear. Poor dentition noted. No JVD. Posterior and anterior lung gibson are clear with good air movement. Heart rate is regular. Rate is improving nicely from ER admission Abdomen soft and nontender. No edema or clubbing. Neurologic exam intact including cranial nerves and peripheral motor strength. Assessment and Plan (1) Cystitis Current visit: Yes Status: Acute Category: Medical Code(s): N30.90 - Cystitis, unspecified without hematuria High risk for cystitis from infectious etiologies. Begin antibiotic therapy. Await culture results (2) DKA (diabetic ketoacidoses) Current visit: Yes Status: Acute Qualifiers: Diabetes mellitus type: type 1 Diabetes mellitus complication detail: without coma Qualified Code(s): E10.10 - Type 1 diabetes mellitus with ketoacidosis without coma Category: Medical Code(s): E13.10 - Other specified diabetes mellitus with ketoacidosis without coma DKA improving. Patient now on IV fluids and low-dose insulin drip. Moderate acetone. Continue to monitor per ICU protocol. (3) Diabetes mellitus, insulin dependent (IDDM), uncontrolled Current visit: Yes Status: Acute Qualifiers: Glycemic state: with hyperglycemia Qualified Code(s): E10.65 - Type 1 diabetes mellitus with hyperglycemia Category: Medical Code(s): E10.65 - Type 1 diabetes mellitus with hyperglycemia (4) Acute on chronic renal failure Problem details: Improvement with fluid resuscitation, suspect due to dehydr ation. Will need repeat lab work when follows up in clinic later this week. Current visit: No Status: Acute Qualifiers: Acute renal failure type: unspecified Chronic kidney disease stage: unspecified stage Qualified Code(s): N17.9 - Acute kidney failure, unsp ecified; N18.9 - Chronic kidney disease, unspecified Category: Medical Code(s): N17.9 - Acute kidney failure, unspecified; N18.9 - Chronic kidney disease, unspecified Continue IV fluids. Monitor renal function tomorrow. - Assessment and plan all Dx Assessment and Plan for all problems:: Please note one hour critical care time.
--- NOTE | 2019-02-16 11:14 | Pharmacy Consult Notes ---
[facility] Pharmacy VTE Monitoring - Patient Demographics Admission date: 02/16/19 Report Date: 02/16/19 Time: 11:14 Allergies/Adverse Reactions: Patient Allergies Penicillins [PENICILLINS] Allergy (Severe, Verified 02/16/19 02:19) I-SHASTA Height: 1.7 m Weight: 71.486 kg Patient Problems: Current Active Problems Renal insufficiency (Acute) Diabetes mellitus, insulin dependent (IDDM), uncontrolled (Acute) DKA (diabetic ketoacidoses) (Acute) Cystitis (Acute) - VTE Risk Labs: VTE Related Lab Results Hgb 11.4 g/dL (14.1-18.0) L D 02/16/19 04:30 Hct 34.2 % (42.0-52.0) L 02/16/19 04:30 Plt Count 314 K/mm3 (142-424) D 02/16/19 04:30 BUN 48 mg/dL (7-18) H 02/16/19 04:30 Creatinine 3.11 mg/dL (0.70-1.30) H 02/16/19 04:30 Estimated Creat Clear 33 mL/min (50-200) 02/16/19 04:30 VTE Score: 3 VTE Risk Level: Low Risk - Prophylaxis Types of VTE Prophylaxis: TEDS Knee High (PORTER HOSE ORDER PLACED)
[2019-02-16 19:13] LABS: Anion Gap 20.9 mEq/L (5-15); Blood Urea Nitrogen 27 mg/dL (7-18); Calcium 7.9 mg/dL (8.5-10.1); Carbon Dioxide 16 mmol/L (21.0-32.0); Chloride 104 mmol/L (98-107); Potassium 3.9 mmoL/L (3.5-5.1); Sodium 137 mmol/L (136-145)
[2019-02-16 19:15] LABS: Acetone, Serum (Rapid) Small (None Detect)
[2019-02-16 19:16] LABS: Glucose 226 mg/dL (74-106)
[2019-02-17 06:13] LABS: Basophils # 0.1 K/mm3 (0-0.2); Basophils % 0.4 % (0.1-2.0); Eosinophils # 0.3 K/mm3 (0.0-0.4); Eosinophils % 2.9 % (0.1-12.0); Hematocrit 32.8 % (42.0-52.0); Hemoglobin 11.1 g/dL (14.1-18.0); Lymphocytes # 3.2 K/mm3 (0.7-4.5); Lymphocytes % 31.1 % (10-50); Mean Corpuscular HGB Conc 33.9 g/dL (31.8-35.4); Mean Corpuscular Volume 91.7 fl (80-94); Mean Platelet Volume 9.8 fl (7.4-10.4); Monocytes # 0.3 K/mm3 (0.1-1.0); Monocytes % 2.8 % (1.7-9.3); Neutrophils # 6.5 K/mm3 (1.8-7.8); Neutrophils % 62.8 % (37.0-80.0); Platelet Count 303 K/mm3 (142-424); Red Blood Count 3.58 M/mm3 (4.60-6.20); Red Cell Distribution Width 14.5 % (11.5-17.5); White Blood Count 10.3 K/mm3 (4.8-10.8)
[2019-02-17 06:15] LABS: Acetone, Serum (Rapid) None Detected (None Detect)
[2019-02-17 06:20] LABS: Alanine Aminotransferase 70 U/L (12-78); Albumin Level 2.1 gm/dL (3.4-5.0); Albumin/Globulin Ratio 0.6 (1.1-1.8); Alkaline Phosphatase 352 U/L (46-116); Anion Gap 17.5 mEq/L (5-15); Aspartate Amino Transferase 68 U/L (15-37); Bilirubin,Total 0.2 mg/dL (0.2-1.0); Blood Urea Nitrogen 20 mg/dL (7-18); Carbon Dioxide 18 mmol/L (21.0-32.0); Chloride 106 mmol/L (98-107); Globulin 3.5 gm/dl (1.3-3.2); Potassium 3.5 mmoL/L (3.5-5.1); Sodium 138 mmol/L (136-145); Total Protein,Serum 5.6 gm/dL (6.4-8.2)
[2019-02-17 06:27] LABS: Glucose 141 mg/dL (74-106)
--- NOTE | 2019-02-17 08:50 | Discharge Summary ---
General - General Admission date:: 02/16/19 Discharge date: 02/17/19 HPI HPI: 38-year-old white male with history of type 1 diabetes, previous insulin pump, multiple episodes of DKA, history of recurrent UTIs with urinary/bladder outlet obstruction with ongoing self-catheterization but with recurrent urinary tract infections-most recently treated [facility] in December 2018 with UTI/DKA and discharged home with 2 weeks of Levaquin therapy. He came back to the emergency department on the night of admission because he had been "crashing" for 2 days and felt like his urine was once again infected. He reports he did not call our office because "I was out of minutes on my phone." In the emergency department was significantly acidotic, positive acetone levels, significant hyperglycemia with blood sugars greater than 1600, admitted to hospital for DKA protocol after appropriate fluid boluses and insulin therapy in the emergency department. Hospital Course Hospital Course: Patient was admitted to intensive care unit, insulin drip and routine fluid resuscitation and electrolyte replacement were undertaken. Patient improved very nicely and his acidosis resolved. His acute kidney injury also resolved with creatinine trending down to 2.0 this morning, vastly improved. Patient is been able to eat and drink through the day yesterday and his acetone level this morning is negative. 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 Patient's urine is clear, culture as of yet has no growth. Patient tells me this morning that he has not been doing his self cath activities because "the [employer] wanted to build me from a catheter." Patient wishes to go home and I think this is reasonable. I have asked the nursing staff to provide him with for in and out catheter sets, I will send a prescription for antibiotic to his pharmacy along with increased Coreg dosing because of his hypertensive course here in the hospital. Patient assures me he has all of his insulin supplies at home he needs. We will get short-term follow-up in 2 days with labs and try to reassess what his catheter situation is at home. His medical noncompliance is impressive and contributes to his recurrent admissions and DKA episodes. Objective Vital signs: Temp Pulse Resp BP Pulse Ox 97.6 F 80 16 180/110 H 100 02/17/19 08:00 02/17/19 07:50 02/16/19 20:00 02/17/19 06:00 02/17/19 06:00 Narrative: Patient is awake, alert. Oriented x3. Cardiopulmonary assessment unremarkable, clear lungs, regular heart rate. No peripheral edema. Wise catheter draining clear yellow urine. Abdomen soft and nontender. Oropharynx moist and clear. Results Labs on day of discharge: Labs from last 24 hours 02/17/19 02/17/19 02/17/19 06:30 05:10 05:10 WBC 10.3 D RBC 3.58 L Hgb 11.1 L Hct 32.8 L MCV 91.7 MCH 31.0 MCHC 33.9 RDW 14.5 Plt Count 303 MPV 9.8 Neut % (Auto) 62.8 Lymph % (Auto) 31.1 [place] % (Auto) 2.8 Eos % (Auto) 2.9 Baso % (Auto) 0.4 Neut # (Auto) 6.5 Lymph # (Auto) 3.2 [place] # (Auto) 0.3 Eos # (Auto) 0.3 Baso # (Auto) 0.1 Sodium 138 Potassium 3.5 Chloride 106 Carbon Dioxide 18 L Anion Gap 17.5 H BUN 20 H D Creatinine 2.05 H Estimated Creat Clear 55 Estimated GFR 37 L Est GFR ( Amer) 45 L Glucose 141 H D POC Glucose 111 H Calcium 8.0 L Total Bilirubin 0.2 AST 68 H D ALT 70 D Alkaline Phosphatase 352 H Total Protein 5.6 L D Albumin 2.1 L D Globulin 3.5 H Albumin/Globulin Ratio 0.6 L Acetone Level None detected 02/17/19 02/17/19 02/17/19 04:28 02:31 00:26 WBC RBC Hgb Hct MCV MCH MCHC RDW Plt Count MPV Neut % (Auto) Lymph % (Auto) [place] % (Auto) Eos % (Auto) Baso % (Auto) Neut # (Auto) Lymph # (Auto) [place] # (Auto) Eos # (Auto) Baso # (Auto) Sodium Potassium Chloride Carbon Dioxide Anion Gap BUN Creatinine Estimated Creat Clear Estimated GFR Est GFR ( Amer) Glucose POC Glucose 130 H 118 H 153 H Calcium Total Bilirubin AST ALT Alkaline Phosphatase Total Protein Albumin Globulin Albumin/Globulin Ratio Acetone Level 02/16/19 02/16/19 02/16/19 22:17 20:50 18:56 WBC RBC Hgb Hct MCV MCH MCHC RDW Plt Count MPV Neut % (Auto) Lymph % (Auto) [place] % (Auto) Eos % (Auto) Baso % (Auto) Neut # (Auto) Lymph # (Auto) [place] # (Auto) Eos # (Auto) Baso # (Auto) Sodium Potassium Chloride Carbon Dioxide Anion Gap BUN Creatinine Estimated Creat Clear Estimated GFR Est GFR ( Amer) Glucose POC Glucose 160 H 173 H 240 H Calcium Total Bilirubin AST ALT Alkaline Phosphatase Total Protein Albumin Globulin Albumin/Globulin Ratio Acetone Level 02/16/19 02/16/19 02/16/19 18:55 17:15 15:24 WBC RBC Hgb Hct MCV MCH MCHC RDW Plt Count MPV Neut % (Auto) Lymph % (Auto) [place] % (Auto) Eos % (Auto) Baso % (Auto) Neut # (Auto) Lymph # (Auto) [place] # (Auto) Eos # (Auto) Baso # (Auto) Sodium 137 Potassium 3.9 Chloride 104 Carbon Dioxide 16 L Anion Gap 20.9 H BUN 27 H D Creatinine 2.38 H D Estimated Creat Clear 43 Estimated GFR 31 L Est GFR ( Amer) 38 L D Glucose 226 H D POC Glucose 191 H 234 H Calcium 7.9 L Total Bilirubin AST ALT Alkaline Phosphatase Total Protein Albumin Globulin Albumin/Globulin Ratio Acetone Level Small 02/16/19 02/16/19 02/16/19 12:59 11:12 09:38 WBC RBC Hgb Hct MCV MCH MCHC RDW Plt Count MPV Neut % (Auto) Lymph % (Auto) [place] % (Auto) Eos % (Auto) Baso % (Auto) Neut # (Auto) Lymph # (Auto) [place] # (Auto) Eos # (Auto) Baso # (Auto) Sodium Potassium Chloride Carbon Dioxide Anion Gap BUN Creatinine Estimated Creat Clear Estimated GFR Est GFR ( Amer) Glucose POC Glucose 159 H 123 H 143 H Calcium Total Bilirubin AST ALT Alkaline Phosphatase Total Protein Albumin Globulin Albumin/Globulin Ratio Acetone Level Preliminary micro results at discharge 02/15/19 23:07 Urine Culture - Preliminary Urine,Random NO GROWTH AFTER 24 HOURS DS: Diagnosis - Discharge Diagnosis (1) Cystitis Status: Chronic (2) DKA (diabetic ketoacidoses) Status: Resolved (3) Diabetes mellitus, insulin dependent (IDDM), uncontrolled Status: Chronic (4) Acute on chronic renal failure Status: Acute Problem details: Improvement with fluid resuscitation, suspect due to dehydration. Will need repeat lab work when follows up in clinic later this week. Discharge Plan - Patient Discharge Instructions ACTIVITY: Continue current activity DIET: continue same diet Patient Instructions: Acute Cystitis, DI for Acute Cystitis, DI for Hyperglycemia -- Adult, Diabetic Ketoacidosis, DI for Diabetic Ketoacidosis - Follow up Plan Follow up with: Lobo Baltazar MD [Staff Physician] - 02/19/19 12:00 pm Disposition: Home, Self-Nursing Home Medications: Home Medications Medication Instructions Recorded Confirmed Type Albuterol Sulfate [Proair Hfa 2 puffs IH Q4HP PRN #1 inh 09/15/18 02/16/19 Rx 90mcg/puff Inh] Gabapentin [Neurontin 800mg Tab] 800 mg PO QID 11/08/18 02/16/19 History Insulin Aspart [Novolog] 0 unit SQ DIRECTED #0 12/16/18 02/16/19 Rx Insulin Glargine,Hum.rec.anlog 25 unit SQ HS 02/16/19 02/16/19 History [Insulin Glargine 100 Units/mL 3mL flexpen] Carvedilol [Carvedilol 6.25mg Tab] 12.5 mg PO BID #60 tablet 02/17/19 Rx levoFLOXacin [Levaquin 500mg 500 mg PO DAILY #7 tab 02/17/19 Rx tab] Prescriptions/Medication Reconciliation: New levoFLOXacin [Levaquin 500mg tab] 500 mg PO DAILY #7 tab Continue Albuterol Sulfate [Proair Hfa 90mcg/puff Inh] 2 puffs IH Q4HP PRN #1 inh PRN Reason: Shortness Of Breath Or Wheezing Gabapentin [Neurontin 800mg Tab] 800 mg PO QID Insulin Aspart [Novolog] 0 unit SQ DIRECTED #0 Insulin Glargine,Hum.rec.anlog [Insulin Glargine 100 Units/mL 3mL flexpen] 25 unit SQ HS Changed Carvedilol [Carvedilol 6.25mg Tab] 12.5 mg PO BID #60 tablet Other Amb Orders: Basic Metabolic Panel Time Frame: 02/19/19, Facility: [facility], Location: Laboratory
== END 2019-02-17 14:25 | disposition home or self-care (01) | DRG 639 ==
LOC: ER 22:38 → ICU 02-16 00:56
PROVIDERS: ADMIT Internal Medicine Adolescent Medicine; ATTEND Internal Medicine Adolescent Medicine
CPT/HCPCS: 36415; 71010; 71045; 80048; 80053; 80305; 81001; 82009; 82947; 82962; 83735; 84100; 84484; 85007; 85025; 87086; 96365; 96366; 96367; 96375; 99285; J1956; J2405

== ENCOUNTER 2019-02-22 23:56 | Emergency (ER) | payer MEDICAID, SELFPAY ==
[2019-02-23 00:09] VITALS: BP 139/82; PULSE 124; RESP 20; TEMP 36.9; O2SAT 100; BMI 24.7
--- NOTE | 2019-02-23 00:11 | PC.NURSE ---
Called RT for ABG.
--- NOTE | 2019-02-23 00:12 | XR_ITS ---
XR chest 2V HISTORY: ITS.REASON: shortness of breath ORDERING PHYSICIAN: Robby Katz MD PATIENT AGE: 38 years COMPARISON: PA and lateral chest 12/01/2018 FINDINGS: The cardiomediastinal silhouette and pulmonary vascularity are within normal limits. The lungs are clear without infiltrates, suspicious nodules, or pleural effusions. No acute bony abnormalities. IMPRESSION: Negative chest, no acute finding
--- NOTE | 2019-02-23 00:14 | XR_ITS ---
EXAM: XR lumbar spine 2-3V HISTORY: ITS.REASON: lower back pain ORDERING PHYSICIAN: Robby Katz MD PATIENT AGE: 38 years COMPARISON: None FINDINGS: There is straightening of normal curvature suggesting muscle spasm. All lumbar vertebrae appear intact and disc spaces are well maintained throughout. The SI joints are normal. There is prominent calcification of the vas deferens, is a patient diabetic? . IMPRESSION: Findings compatible with muscle spasm no significant bony abnormality seen.
--- NOTE | 2019-02-23 00:15 | PC.NURSE ---
RT at bedside.
--- NOTE | 2019-02-23 00:17 | PC.NURSE ---
Called radiology for xrays.
[2019-02-23 00:24] LABS: ABG Base Excess -7.5 mmol/L (-2.4-2.3); ABG HCO3 17.2 mmhg (22.0-26.0); ABG Oxygen Saturation 98 % (90-100); ABG PCO2 27.9 mmhg (35.0-45.0); ABG PH 7.41 mmol/L (7.35-7.45); ABG PO2 100.9 mmhg (80-100)
[2019-02-23 00:26] LABS: Allen's Test Acceptable; Oxygen Room Air %; Source Right Radial
--- NOTE | 2019-02-23 00:41 | [facility].EDSOB ---
ED Disposition Clinical Impression: Elevated LFTs, Hyperglycemia due to type 1 diabetes mellitus Acute lumbar myofascial strain Qualifiers: Encounter type: initial encounter Qualified Code(s): S39.012A - Strain of muscle, fascia and tendon of lower back, initial encounter Acute on chronic renal failure Qualifiers: Acute renal failure type: unspecified Chronic kidney disease stage: unspecified stage Qualified Code(s): N17.9 - Acute kidney failure, unspecified; N18.9 - Chronic kidney disease, unspecified DKA (diabetic ketoacidosis) Qualifiers: Diabetes mellitus type: type 1 Diabetes mellitus complication detail: without coma Qualified Code(s): E10.10 - Type 1 diabetes mellitus with ketoacidosis without coma Disposition: Home, Self-Care Condition on Discharge: Fair Instructions: DI for Low Back Pain Additional Instructions: fluids and see pcp and recheck if needed Referrals: Lobo Baltazar MD [Primary Care Provider] - - Critical Care Critical Care Time: No Attestation: On 02/22/19, the high probability of a clinically significant, sudden or life threatening deterioration of the following system(s) required my full and direct attention, intervention and personal management. The time I documented below is in addition to time spent performing reported procedures but includes the following listed in this critical care notation. Medical Decision Making - Medical Records Medical records reviewed: Yes: I reviewed the patient's medical records. - Michael Inquiry Pt receiving controlled substance: No Vital Signs: 02/23/19 00:09 02/23/19 00:57 02/23/19 01:30 Temperature 98.5 F Temperature Source Oral Pulse Rate [Right] 124 H 102 H 115 H Respiratory Rate 20 16 20 Blood Pressure [Right Arm] 139/82 129/82 158/87 H Blood Pressure Mean [Right Arm] 101 97 110 Blood Pressure Source [Right Arm] Automatic Cuff Automatic Cuff Automatic Cuff Blood Pressure Position [Right Arm] Supine Sitting Sitting 02 Sat by Pulse Oximetry 100 98 100 Oxygen Delivery Method Room Air Room Air Room Air 02/23/19 02:00 02/23/19 02:30 Temperature Temperature Source Pulse Rate [Right] 105 H 100 H Respiratory Rate 18 18 Blood Pressure [Right Arm] 136/82 156/76 H Blood Pressure Mean [Right Arm] 100 102 Blood Pressure Source [Right Arm] Automatic Cuff Automatic Cuff Blood Pressure Position [Right Arm] Sitting Sitting 02 Sat by Pulse Oximetry 100 100 Oxygen Delivery Method Room Air Room Air - Lab Data Lab results reviewed: Yes: I reviewed the patient's lab results. Lab Results 02/23/19 00:03: POC Glucose 242 H 02/23/19 00:12: Specimen Source Right radial, O2 % Room air, ABG pH 7.41, ABG pCO2 27.9 L, ABG pO2 100.9 H, ABG HCO3 17.2 L, ABG Total CO2 18.0 L, ABG O2 Saturation 98, ABG Base Excess -7.5 L, [place] Test Acceptable 02/23/19 00:30: WBC 11.6 H, RBC 3.90 L, Hgb 11.7 L, Hct 37.3 L, MCV 95.6 H, MCH 30.0, MCHC 31.4 L, RDW 14.7, Plt Count 359, MPV 8.6, Neut % (Auto) 71.4, Lymph % (Auto) 22.7, [place] % (Auto) 5.2, Eos % (Auto) 0.4, Baso % (Auto) 0.4, Neut # (Auto) 8.3 H, Lymph # (Auto) 2.6, [place] # (Auto) 0.6, Eos # (Auto) 0.1, Baso # (Auto) 0.1 02/23/19 00:30: Sodium 138, Potassium 3.7, Chloride 100, Carbon Dioxide 18 L, Anion Gap 23.7 H, BUN 43 H, Creatinine 3.03 H, Estimated Creat Clear 33, Estimated GFR 24 L, Est GFR ( Amer) 28 L, Glucose 230 H, Calcium 9.2, Total Bilirubin 0.3, AST 104 H, ALT 209 H, Alkaline Phosphatase 687 H, Total Protein 6.7, Albumin 2.6 L, Globulin 4.1 H, Albumin/Globulin Ratio 0.6 L, Acetone Level Small Result diagrams: 02/23/19 00:30 02/23/19 00:30 Orders (Tests/Meds): ED MEDICATIONS Generic Name Dose Route Start Last Admin Trade Name Freq PRN Reason Stop Dose Admin Sodium Chloride 1,000 mls @ 999 mls/hr 02/23/19 00:30 02/23/19 00:29 Sod Chlor 0.9% 1000ml Bag IV 02/23/19 01:30 999 mls/hr .Q1H1M CASTILLO Administration ORDERS Category Date Time Status XR chest 2V Stat Exams 02/23/19
[2019-02-23 00:49] LABS: Basophils # 0.1 K/mm3 (0-0.2); Basophils % 0.4 % (0.1-2.0); Eosinophils # 0.1 K/mm3 (0.0-0.4); Eosinophils % 0.4 % (0.1-12.0); Hematocrit 37.3 % (42.0-52.0); Hemoglobin 11.7 g/dL (14.1-18.0); Lymphocytes # 2.6 K/mm3 (0.7-4.5); Lymphocytes % 22.7 % (10-50); Mean Corpuscular HGB Conc 31.4 g/dL (31.8-35.4); Mean Corpuscular Volume 95.6 fl (80-94); Mean Platelet Volume 8.6 fl (7.4-10.4); Monocytes # 0.6 K/mm3 (0.1-1.0); Monocytes % 5.2 % (1.7-9.3); Neutrophils # 8.3 K/mm3 (1.8-7.8); Neutrophils % 71.4 % (37.0-80.0); Platelet Count 359 K/mm3 (142-424); Red Cell Distribution Width 14.7 % (11.5-17.5); White Blood Count 11.6 K/mm3 (4.8-10.8)
[2019-02-23 00:57] VITALS: BP 129/82; PULSE 102; RESP 16; O2SAT 98
[2019-02-23 01:01] LABS: Acetone, Serum (Rapid) Small (None Detect)
[2019-02-23 01:05] LABS: Alanine Aminotransferase 209 U/L (12-78); Albumin Level 2.6 gm/dL (3.4-5.0); Albumin/Globulin Ratio 0.6 (1.1-1.8); Anion Gap 23.7 mEq/L (5-15); Aspartate Amino Transferase 104 U/L (15-37); Bilirubin,Total 0.3 mg/dL (0.2-1.0); Blood Urea Nitrogen 43 mg/dL (7-18); Calcium 9.2 mg/dL (8.5-10.1); Carbon Dioxide 18 mmol/L (21.0-32.0); Chloride 100 mmol/L (98-107); Creatinine Clearance Estimated 33 mL/min (50-200); Creatinine,Serum 3.03 mg/dL (0.70-1.30); Estimated Glomerular Filt Rate 24 ml/min (>60); GFR (African American) 28 ML/MIN (>60); Globulin 4.1 gm/dl (1.3-3.2); Glucose 230 mg/dL (74-106); Potassium 3.7 mmoL/L (3.5-5.1); Sodium 138 mmol/L (136-145); Total Protein,Serum 6.7 gm/dL (6.4-8.2)
[2019-02-23 01:07] LABS: Alkaline Phosphatase 687 U/L (46-116)
[2019-02-23 01:30] VITALS: BP 158/87; PULSE 115; RESP 20; O2SAT 100
[2019-02-23 02:00] VITALS: BP 136/82; PULSE 105; RESP 18; O2SAT 100
[2019-02-23 02:21] LABS: POC Glucose,Bedside 242 (70-110)
[2019-02-23 02:30] VITALS: BP 156/76; PULSE 100; RESP 18; O2SAT 100
[2019-02-23 03:14] VITALS: BP 148/58; PULSE 96; RESP 16; TEMP 36.9; O2SAT 100
== END 2019-02-23 03:17 | disposition home or self-care (01) ==
PROVIDERS: Emergency Provider Emergency Medicine; PCP Internal Medicine Adolescent Medicine
DX: E10.10 Type 1 diabetes mellitus with ketoacidosis without coma (principal); Z79.4 Long term (current) use of insulin; S39.012A Strain of muscle, fascia and tendon of lower back, initial encounter; N17.9 Acute kidney failure, unspecified; I10 Essential (primary) hypertension; E78.5 Hyperlipidemia, unspecified; Z88.0 Allergy status to penicillin
CPT/HCPCS: 71046; 72100; 80053; 82009; 82803; 82962; 85025; 96365; 99284

== ENCOUNTER 2019-03-04 14:05 | Outpatient (CLI) | payer MEDICAID, SELFPAY ==
[2019-03-04] VITALS (7 sets, daily range): BP systolic 145–167; BP diastolic 86–109; PULSE 94–105; RESP 18; TEMP 36.7; O2SAT 97–98
== END 2019-03-04 17:25 | disposition home or self-care (01) ==
LOC: INF 14:06
PROVIDERS: PCP Internal Medicine Adolescent Medicine; Visit Provider Nurse Practitioner Family
DX: R33.9 Retention of urine, unspecified (principal); N18.4 Chronic kidney disease, stage 4 (severe); N39.0 Urinary tract infection, site not specified
CPT/HCPCS: 96360; 96361; 96365; 96367; J1956

== ENCOUNTER 2019-03-15 15:11 | Observation (INO) ==
--- NOTE | 2019-03-15 15:31 | Emergency Department Note ---
ED Disposition Clinical Impression: DKA, type 1 Qualifiers: Diabetes mellitus complication detail: without coma Qualified Code(s): E10.10 - Type 1 diabetes mellitus with ketoacidosis without coma Disposition: Admitted As Inpatient Condition on Discharge: Good - Critical Care Critical Care Time: No Attestation: On , the high probability of a clinically significant, sudden or life threatening deterioration of the following system(s) required my full and direct attention, intervention and personal management. The time I documented below is in addition to time spent performing reported procedures but includes the following listed in this critical care notation. Medical Decision Making - Medical Records Medical records reviewed: Yes: I reviewed the patient's medical records. - Michael Inquiry Pt receiving controlled substance: No Vital Signs: 03/15/19 15:12 03/15/19 15:28 03/15/19 15:42 Temperature 97.1 F L Temperature Source Rectal Pulse Rate [Apical] 148 H 146 H Pulse Rate [Right Radial] 148 H Respiratory Rate 32 H 34 H 34 H Blood Pressure [Left Arm] 137/109 H 136/80 Blood Pressure [Right Arm] 143/84 H Blood Pressure Mean [Left Arm] 118 98 Blood Pressure Mean [Right Arm] 103 Blood Pressure Source [Left Arm] Automatic Cuff Automatic Cuff Blood Pressure Source [Right Arm] Automatic Cuff Blood Pressure Position [Left Arm] Supine Blood Pressure Position [Right Arm] Sitting 02 Sat by Pulse Oximetry 100 100 100 Oxygen Delivery Method Room Air Nasal Cannula Oxygen Flow Rate (LPM) 2 03/15/19 16:12 03/15/19 16:30 03/15/19 17:00 Temperature Temperature Source Pulse Rate [Apical] Pulse Rate [Right Radial] 142 H 139 H 132 H Respiratory Rate 32 H 28 H 28 H Blood Pressure [Left Arm] 117/71 116/74 128/74 Blood Pressure [Right Arm] Blood Pressure Mean [Left Arm] 86 88 92 Blood Pressure Mean [Right Arm] Blood Pressure Source [Left Arm] Automatic Cuff Automatic Cuff Automatic Cuff Blood Pressure Source [Right Arm] Blood Pressure Position [Left Arm] Sitting Sitting Sitting Blood Pressure Position [Right Arm] 02 Sat by Pulse Oximetry 100 100 100 Oxygen Delivery Method Room Air Room Air Room Air Oxygen Flow Rate (LPM) - Lab Data Lab results reviewed: Yes: I reviewed the patient's lab results. Lab Results 03/15/19 15:15: WBC 20.5 H*, RBC 3.96 L, Hgb 12.1 L, Hct 46.3, MCV 116.9 H, MCH 30.4, MCHC 26.0 L, RDW 17.3, Plt Count 587 H, MPV 8.8, Neut % (Auto) 75.4, Lymph % (Auto) 19.2, [place] % (Auto) 3.8, Eos % (Auto) 0.9, Baso % (Auto) 0.7, Neut # (Auto) 15.5 H, Lymph # (Auto) 3.9, [place] # (Auto) 0.8, Eos # (Auto) 0.2, Baso # (Auto) 0.2, Total Counted 100, Neutrophils % (Manual) 75, Lymphocytes % (Manual) 21, Monocytes % (Manual) 4, Platelet Estimate Moderate increase, Macrocytosis 2+ 03/15/19 15:15: Sodium 135 L, Potassium 6.1 H*, Chloride 93 L, Carbon Dioxide 6 L*, Anion Gap 42.1 H, BUN 57 H, Creatinine 3.48 H, Estimated Creat Clear 38, Estimated GFR 20 L, Est GFR ( Amer) 24 L, Glucose 1275 H*, Calcium 9.2, Total Bilirubin 0.7, AST 42 H, ALT 80 H, Alkaline Phosphatase 865 H, Total Protein 7.1, Albumin 2.5 L, Globulin 4.6 H, Albumin/Globulin Ratio 0.5 L 03/15/19 15:15: Acetone Level Large 03/15/19 15:35: Urine Color Straw, Urine Appearance Clear, Urine pH 6.0, Ur Specific [place] 1.010, Urine Protein Trace, Urine Glucose (UA) 3+, Urine Ketones 2+, Urine Blood Trace-l, Urine Nitrate Negative, Urine Bilirubin Negative, Urine Urobilinogen 0.2, Ur Leukocyte Esterase 1+ A, Urine RBC Occasional, Urine WBC 3-5, Urine Bacteria Trace 03/15/19 15:35: Urine Opiates Screen Negative, Urine Methadone Screen Negative, Ur Barbituates Screen Negative, Ur Phencyclidine Scrn Negative, Ur Amphetamines Screen Negative, U Benzodiazepines Scrn Negative, Urine Cocaine Screen Negative, U Marijuana (THC) Screen Negative 03/15/19 15:45: Specimen Source Right radial, O2 % Room air, ABG pH 7.01 L*, ABG pCO2 11.4 L, ABG pO2 137.6 H, ABG HCO3 2.8 L, ABG Total CO2 3.2 L, ABG O2 Saturation 97, ABG Base Excess -28.3 L, [place] Test Patient unable Result diagrams: 03/15/19 15:15 03/15/19 15:15 Orders (Tests/Meds): ED MEDICATIONS Generic Name Dose Route Start Last Admin Trade Name Freq PRN Reason Stop Dose Admin Insulin Human Regular 100 unit 101 mls @ 2.02 mls/hr 03/15/19 16:15 03/15/19 16:15 / Sodium Chloride IV 04/14/19 16:14 2.02 mls/hr .Q25H CASTILLO Administration Protocol 2 UNITS/HR Sodium Chloride 3,000 mls @ 999 mls/hr 03/15/19 17:30 03/15/19 17:18 Sod Chlor 0.9% 1000ml Bag IV 03/15/19 20:30 999 mls/hr .Q3H1M CASTILLO Administration Sodium Chloride 10 ml 03/15/19 15:24 Saline Flush 10ml Syringe IV 03/16/19 03:24 NEEDED PRN Maintain IV Site Discontinued Medications Generic Name Dose Route Start Last Admin Trade Name Freq PRN Reason Stop Dose Admin Sodium Chloride 1,000 mls @ 999 mls/hr 03/15/19 15:30 03/15/19 15:30 Sod Chlor 0.9% 1000ml Bag IV 03/15/19 16:30 999 mls/hr .Q1H1M CASTILLO Administration Sodium Chloride 1,000 mls @ 999 mls/hr 03/15/19 15:45 03/15/19 15:45 Sod Chlor 0.9% 1000ml Bag IV 03/15/19 16:45 999 mls/hr .Q1H1M CASTILLO Administration Sodium Chloride 500 mls @ 999 mls/hr 03/15/19 16:15 03/15/19 17:16 Sod Chlor 0.9% 1000ml Bag IV 03/15/19 16:45 Not Given .Q31M CASTILLO Insulin Human Regular 10 unit 03/15/19 16:03 03/15/19 16:15 Humulin R Insulin 100 Units/Ml 10ml Vial IVP 03/15/19 16:04 10 unit ONCE ONE Administration ORDERS Category Date Time Status Glucose,Random Stat Lab 03/15/19 17:25 Received Urine Culture Stat Micro 03/15/19 15:35 Received - ECG Data Tracing #1 I reviewed this ECG and interpreted as documented below: Normal Sinus Rhythm: No (st 128 no stemi) Medical Decision Narrative: pt improved, pH 7.01, serum bicarb 6, blood sugar 1275, pt mentation improved with IV hydration and initial insulin dosing, admit d/w Dr Grossman General Adult HPI - General Stated complaint: elevated glucose, decreased responsivness Time Seen by Provider: 03/15/19 15:28 Mode of Arrival: EMS Source of Information: Patient, EMS - History of Present Illness HPI narrative: mild to mod general weakness today, hx dka at UL recently, no injury, +NV, no fever, pt poor historian - Related Data Home Medications Medication Instructions Recorded Confirmed Gabapentin [Neurontin 800mg Tab] 800 mg PO QID 11/08/18 03/04/19 Insulin Glargine,Hum.rec.anlog 25 unit SQ HS 02/16/19 03/04/19 [Insulin Glargine 100 Units/mL 3mL flexpen] levoFLOXacin [Levaquin 500mg 500 mg PO DAILY 03/04/19 03/04/19 tab] Previous Rx's Medication Instructions Recorded Albuterol Sulfate [Proair Hfa 2 puffs IH Q4HP PRN #1 inh 09/15/18 90mcg/puff Inh] Insulin Aspart [Novolog] 0 unit SQ DIRECTED #0 12/16/18 Carvedilol [Carvedilol 6.25mg Tab] 12.5 mg PO BID #60 tablet 02/17/19 Allergies Allergy/AdvReac Type Severity Reaction Status Date / Time Penicillins [PENICILLINS] Allergy Severe I-HIVES Verified 02/16/19 02:19 [facility] History - Hepatitis A Screen Attestation statement:: This patient has been screened for Hepatitis A risk factors. Medical History: Reports:: Diabetes Mellitus Type 1, Hyperlipidemia, Hypertension, Renal Disease, Renal Insufficiency Denies:: Cancer, Diabetes Mellitus Type 2, MRSA Other Medical History: Reports: Other Comment: high heart rate Laterality Cases: Bilateral: Tonsillectomy Other Surgeries: Yes: No Previous Surgery (Tonsillectomy), Other Amputation: No Fractures: No - Social History Smoking Status: Never smoker Tobacco Type: smokeless tobacco # Packs/Day (cigarettes): 0 Alcohol Intake: never Alcohol Intake Frequency:: a few times a week Substance Use Type: denies use Occupational Status: unemployed Housing: apartment Household Members: significant other, family, children Family Hx:: Cancer, Diabetes, Hyperlipidemia, Hypertension, Stroke ROS Obtained: Yes Systems reviewed as appropriate & no additional complaints - Constitutional Constitutional: Reports fatigue, Denies fever(s) - Eyes Eyes: Denies eye discharge - ENT Ears, Nose, Mouth, and Throat: Reports dry mouth - Cardiovascular Cardiovascular: Denies chest pain - Respiratory Respiratory: No dyspnea - Gastrointestinal Gastrointestingal: Reports: nausea. Denies: abdominal pain - Musculoskeletal Musculoskeletal: Reports muscle cramps - Integumentary/Breasts Skin/Breast: Denies wounds - Neurologic Neurologic: Denies convulsions Physical Exam - General General appearance: obtunded - Head Head exam: atraumatic - Eye Eye exam: Present: PERRL, EOMI - ENT ENT exam: Present: mucous membranes dry - Neck Neck exam: Present: normal inspection - Chest Chest inspection: Present: normal inspection - Respiratory Respiratory exam: Present: normal lung sounds bilaterally - Cardiovascular Cardiovascular exam: Present: normal rhythm, tachycardia - Abdominal Exam Abdominal exam: Present: soft. Absent: distention, rebound - Extremities Exam Extremities exam: Absent: tenderness, pedal edema - Back Exam Back exam: Absent: vertebral tenderness - Neurological Exam Neurological exam: Present: other (uncooperative) - Skin Skin exam: Present: warm, dry
[2019-03-15 15:37] LABS: Basophils # 0.2 K/mm3 (0-0.2); Basophils % 0.7 % (0.1-2.0); Eosinophils # 0.2 K/mm3 (0.0-0.4); Eosinophils % 0.9 % (0.1-12.0); Hematocrit 46.3 % (42.0-52.0); Hemoglobin 12.1 g/dL (14.1-18.0); Lymphocytes # 3.9 K/mm3 (0.7-4.5); Lymphocytes % 19.2 % (10-50); Mean Corpuscular Hemoglobin 30.4 pg (27.0-31.2); Mean Corpuscular Volume 116.9 fl (80-94); Mean Platelet Volume 8.8 fl (7.4-10.4); Monocytes # 0.8 K/mm3 (0.1-1.0); Monocytes % 3.8 % (1.7-9.3); Neutrophils # 15.5 K/mm3 (1.8-7.8); Neutrophils % 75.4 % (37.0-80.0); Platelet Count 587 K/mm3 (142-424); Red Blood Count 3.96 M/mm3 (4.60-6.20); Red Cell Distribution Width 17.3 % (11.5-17.5); White Blood Count 20.5 K/mm3 (4.8-10.8)
[2019-03-15 15:45] LABS: Albumin Level 2.5 gm/dL (3.4-5.0); Albumin/Globulin Ratio 0.5 (1.1-1.8); Anion Gap 42.1 mEq/L (5-15); Bilirubin,Total 0.7 mg/dL (0.2-1.0); Calcium 9.2 mg/dL (8.5-10.1); Globulin 4.6 gm/dl (1.3-3.2); Total Protein,Serum 7.1 gm/dL (6.4-8.2)
[2019-03-15 15:46] LABS: Microscopic, Urine URINE MICROSCOPIC (MICROSCOPIC)
[2019-03-15 15:47] LABS: Potassium 6.1 mmoL/L (3.5-5.1)
[2019-03-15 15:57] LABS: Appearance,Urine CLEAR (Clear); Bilirubin,Urine Negative (Negative); Blood, Urine TRACE-L (Negative); Color,Urine Straw (Yellow); Glucose,Urine (UA) 3+ (Negative); Ketones,Urine 2+ (Negative); Leukocyte Esterase,Urine 1+ (Negative); Protein,Urine TRACE (Negative); Urobilinogen,Urine 0.2 EU/dl (0.2)
[2019-03-15 15:57] LABS: ABG Base Excess -28.3 mmol/L (-2.4-2.3); ABG HCO3 2.8 mmhg (22.0-26.0); ABG Oxygen Saturation 97 % (90-100); ABG PO2 137.6 mmhg (80-100); ABG TCO2 3.2 mmhg (23-27)
[2019-03-15 15:59] LABS: Allen's Test Patient Unable; Oxygen Room Air %
[2019-03-15 16:00] LABS: ABG PCO2 11.4 mmhg (35.0-45.0); ABG PH 7.01 mmol/L (7.35-7.45)
[2019-03-15 16:02] LABS: Lymphocytes % 21 % (10-50); Monocytes % 4 % (2-9); Neutrophils % 75 % (42-76); Total Cells Counted 100
[2019-03-15 16:03] LABS: Macrocytosis 2+
[2019-03-15 16:05] LABS: Bacteria,Urine Trace /lpf; RBC,Urine Occasional #/hpf (0-3)
[2019-03-15 16:11] LABS: Amphetamine/Metha Screen,Urine Negative ng/mL (<1000); Barbiturates Screen,Urine Negative ng/mL (<200); Benzodiazepines Screen,Urine Negative ng/mL (<200); Cannabinoid Screen,Urine Negative ng/mL (<50); Cocaine Screen,Urine Negative ng/mL (<300); Methadone Screen,Urine Negative ng/mL (<300); Opiate Screen,Urine Negative ng/mL (<300); Phencyclidine Screen,Urine Negative ng/mL (<25)
[2019-03-15 17:57] LABS: Glucose,Random 920 mg/dL (70-110)
[2019-03-16 04:51] LABS: Albumin Level 1.7 gm/dL (3.4-5.0); Albumin/Globulin Ratio 0.5 (1.1-1.8); Bilirubin,Total 0.3 mg/dL (0.2-1.0); Globulin 3.2 gm/dl (1.3-3.2); Potassium 3.4 mmoL/L (3.5-5.1); Total Protein,Serum 4.9 gm/dL (6.4-8.2)
[2019-03-16 04:53] LABS: Calcium 7.9 mg/dL (8.5-10.1)
[2019-03-16 04:56] LABS: Anion Gap 11.4 mEq/L (5-15)
[2019-03-16 04:58] LABS: Basophils # 0.1 K/mm3 (0-0.2); Basophils % 0.4 % (0.1-2.0); Eosinophils # 0.1 K/mm3 (0.0-0.4); Eosinophils % 0.9 % (0.1-12.0); Lymphocytes # 4.2 K/mm3 (0.7-4.5); Lymphocytes % 30.1 % (10-50); Mean Corpuscular HGB Conc 31.9 g/dL (31.8-35.4); Mean Corpuscular Hemoglobin 30.3 pg (27.0-31.2); Mean Corpuscular Volume 95.1 fl (80-94); Mean Platelet Volume 7.4 fl (7.4-10.4); Monocytes # 0.8 K/mm3 (0.1-1.0); Monocytes % 5.7 % (1.7-9.3); Neutrophils # 8.9 K/mm3 (1.8-7.8); Platelet Count 391 K/mm3 (142-424); Red Blood Count 3.08 M/mm3 (4.60-6.20); Red Cell Distribution Width 17.2 % (11.5-17.5); White Blood Count 14.1 K/mm3 (4.8-10.8)
[2019-03-16 04:59] LABS: Hematocrit 29.3 % (42.0-52.0); Hemoglobin 9.3 g/dL (14.1-18.0)
--- NOTE | 2019-03-16 08:10 | H&P/Discharge Summary ---
General - General Admission date:: 03/15/19 Discharge date: 03/16/19 *Admission Date: 03/15/19 *Chief complaint: Lethargy/hyperglycemia *History of present illness: 38-year-old white male with type 1 diabetes, very poorly controlled, along with significant problems with bladder outlet obstruction, urinary bladder dysfunction with recurrent UTI, who presented to the emergency department in DKA on the evening of admission. Please see ER notes for details and labs for documentation of the DKA. Recent history is notable for increasing visits to the ER with DKA with quick improvement with IV insulin and fluids. Patient maintains that his DKA is caused by his bladder infections-he has been prescribed intermittent self catheter program by urology, but because of a variety of patient factors has been unable to obtain catheters from medical suppliers because of outstanding bills. Even though we send him home with catheters on discharge he apparently may not be compliant with these Self-Cath programs. Last week came in with severe DKA, transferred to [facility] for endocrinology evaluation, he states he was discharged in 2 days and did not see endocrinology at that time and was not made an appointment for follow-up. He had a follow-up last week with urology, he did not make it because of transportation issues. Began to feel bad through the morning yesterday with increasing cloudiness of his urine, lethargy and was brought to the emergency department and found to be in significant DKA. He was admitted to the special care unit overnight. [facility] History I have reviewed the patient's past medical history: Yes Medical History: Reports:: Diabetes Mellitus Type 1, Hyperlipidemia, Hypertension, Renal Disease, Renal Insufficiency Denies:: Cancer, Diabetes Mellitus Type 2, MRSA *Have you ever received a pneumonia vaccine?: Yes *Have you received a flu vaccine this season?: Yes Other Medical History: Reports: Liver Disease, Other Comment:: Bladder dysfunction with chronic UTI Laterality Cases: Bilateral: Tonsillectomy Other Surgeries: Yes: No Previous Surgery (Tonsillectomy), Other Amputation: No Fractures: No - *Social History Educational Level: Attended High School Smoking Status: Never smoker Tobacco Type: smokeless tobacco # Packs/Day (cigarettes): 0 Alcohol Intake: never Alcohol Intake Frequency:: a few times a week Substance Use Type: denies use *Occupational Status:: unemployed Housing: apartment Household Members: significant other, family, children *Travel in the last 8 weeks: None - Psychiatric History Expresses thoughts of harming self/others: None Suicide Plan Description: No Plan Family Hx:: Asthma, Cancer, Heart Attack, Hyperlipidemia, Hypertension, Kidney Disease, Stroke Review of Systems - Review of Systems Review of systems:: pertinent systems reviewed and negative unless documented below Patient is awake this morning, eating breakfast vigorously feels much better and wishes to go home. Review of systems negative for chest pain or shortness of air. Positive increase in urinary cloudiness per patient at home. Currently has Wise catheter in place. Review of systems negative for diarrhea or fevers. - *Neurologic Denies seizure-like activity Exam Vital signs and Labs for Last 24 Hours: Temp Pulse Resp BP Pulse Ox 97.8 F 98 H 18 136/55 L 97 03/16/19 04:00 03/16/19 06:00 03/16/19 06:00 03/16/19 06:00 03/16/19 06:00 Laboratory Results - last 24 hr 03/15/19 15:15: WBC 20.5 H*, RBC 3.96 L, Hgb 12.1 L, Hct 46.3, MCV 116.9 H, MCH 30.4, MCHC 26.0 L, RDW 17.3, Plt Count 587 H, MPV 8.8, Neut % (Auto) 75.4, Lymph % (Auto) 19.2, [place] % (Auto) 3.8, Eos % (Auto) 0.9, Baso % (Auto) 0.7, Neut # (Auto) 15.5 H, Lymph # (Auto) 3.9, [place] # (Auto) 0.8, Eos # (Auto) 0.2, Baso # (Auto) 0.2, Total Counted 100, Neutrophils % (Manual) 75, Lymphocytes % (Manual) 21, Monocytes % (Manual) 4, Platelet Estimate Moderate increase, Macrocytosis 2+ 03/15/19 15:15: Sodium 135 L, Potassium 6.1 H*, Chloride 93 L, Carbon Dioxide 6 L*, Anion Gap 42.1 H, BUN 57 H, Creatinine 3.48 H, Estimated Creat Clear 38, Estimated GFR 20 L, Est GFR ( Amer) 24 L, Glucose 1275 H*, Calcium 9.2, Total Bilirubin 0.7, AST 42 H, ALT 80 H, Alkaline Phosphatase 865 H, Total Protein 7.1, Albumin 2.5 L, Globulin 4.6 H, Albumin/Globulin Ratio 0.5 L 03/15/19 15:15: Acetone Level Large 03/15/19 15:35: Urine Color Straw, Urine Appearance Clear, Urine pH 6.0, Ur Specific [place] 1.010, Urine Protein Trace, Urine Glucose (UA) 3+, Urine Ketones 2+, Urine Blood Trace-l, Urine Nitrate Negative, Urine Bilirubin Negative, Urine Urobilinogen 0.2, Ur Leukocyte Esterase 1+ A, Urine RBC Occasional, Urine WBC 3-5, Urine Bacteria Trace 03/15/19 15:35: Urine Opiates Screen Negative, Urine Methadone Screen Negative, Ur Barbituates Screen Negative, Ur Phencyclidine Scrn Negative, Ur Amphetamines Screen Negative, U Benzodiazepines Scrn Negative, Urine Cocaine Screen Negative, U Marijuana (THC) Screen Negative 03/15/19 15:45: Specimen Source Right radial, O2 % Room air, ABG pH 7.01 L*, ABG pCO2 11.4 L, ABG pO2 137.6 H, ABG HCO3 2.8 L, ABG Total CO2 3.2 L, ABG O2 Saturation 97, ABG Base Excess -28.3 L, [place] Test Patient unable 03/15/19 17:25: Random Glucose 920 H* D, Troponin I < 0.02 03/15/19 20:24: POC Glucose 530 H* 03/15/19 20:35: Random Glucose 486 H 03/15/19 21:34: POC Glucose 354 H* 03/15/19 22:48: POC Glucose 265 H 03/15/19 23:53: POC Glucose 155 H 03/16/19 00:55: POC Glucose 107 03/16/19 01:54: POC Glucose 155 H 03/16/19 03:07: POC Glucose 115 H 03/16/19 03:55: POC Glucose 104 03/16/19 04:05: WBC 14.1 H D, RBC 3.08 L, Hgb 9.3 L D, Hct 29.3 L, MCV 95.1 H, MCH 30.3, MCHC 31.9, RDW 17.2, Plt Count 391 D, MPV 7.4, Neut % (Auto) 63.0, Lymph % (Auto) 30.1, [place] % (Auto) 5.7, Eos % (Auto) 0.9, Baso % (Auto) 0.4, Neut # (Auto) 8.9 H, Lymph # (Auto) 4.2, [place] # (Auto) 0.8, Eos # (Auto) 0.1, Baso # (Auto) 0.1 03/16/19 04:05: Sodium 149 H, Potassium 3.4 L D, Chloride 115 H, Carbon Dioxide 26 D, Anion Gap 11.4, BUN 47 H, Creatinine 2.80 H, Estimated Creat Clear 36, Estimated GFR 26 L, Est GFR ( Amer) 31 L D, Glucose 103 D, Calcium 7.9 L D, Total Bilirubin 0.3, AST 20 D, ALT 52 D, Alkaline Phosphatase 536 H, Total Protein 4.9 L D, Albumin 1.7 L D, Globulin 3.2, Albumin/Globulin Ratio 0.5 L 03/16/19 04:05: Acetone Level None detected 03/16/19 05:51: POC Glucose 113 H I & O for Last 24 hours: Intake & Output 03/13/19 03/14/19 03/15/19 03/16/19 11:59 11:59 11:59 11:59 Intake Total 3825 / 3825 Output Total 2099 / 2100 Balance 1725 / 1725 Weight 156 lb 5 oz Narrative: Patient is awake, alert, up on the side of the bed. When asked about his ongoing medical compliance issues he does become somewhat irritable and defensive. ENT exam clear, oropharynx moist. Lungs clear. Heart rate regular. Abdomen soft, Wise catheter draining some cloudy urine. Neurologic exam intact except for sensory loss in his feet as previously noted Hospital Course Hospital Course: Patient was admitted to the ICU overnight. Insulin drip and fluids were begun and titrated according to standing protocol. This morning glucose levels have improved, creatinine is approaching his normal baseline and acetone levels have resolved. Patient is tolerating p.o. food and sliding scale insulin well. He wishes to be discharged and I believe this could be managed as an outpatient. Have asked him to bump up his long-acting insulin to 45 units at night, continue mealtime sliding scale-he states he is compliant-we had a long discussion about this. I find it somewhat hard to believe that he is taking his insulin and within 6 days became in a significant DKA state-he maintains this is because "I have this bladder infection." Patient promises he will make follow-up appointment in 2 days. We have made this for 330 on Monday afternoon. I will send him home with prescription for ongoing UTI with Levaquin therapy once daily for 10 days and see if this helps. We will also as an outpatient try to get him hooked back up with urology. Results Labs on day of discharge: Labs from last 24 hours 03/16/19 03/16/19 03/16/19 05:51 04:05 04:05 WBC RBC Hgb Hct MCV MCH MCHC RDW Plt Count MPV Neut % (Auto) Lymph % (Auto) [place] % (Auto) Eos % (Auto) Baso % (Auto) Neut # (Auto) Lymph # (Auto) [place] # (Auto) Eos # (Auto) Baso # (Auto) Total Counted Neutrophils % (Manual) Lymphocytes % (Manual) Monocytes % (Manual) Platelet Estimate Macrocytosis Specimen Source O2 % ABG pH ABG pCO2 ABG pO2 ABG HCO3 ABG Total CO2 ABG O2 Saturation ABG Base Excess [place] Test Sodium 149 H Potassium 3.4 L D Chloride 115 H Carbon Dioxide 26 D Anion Gap 11.4 BUN 47 H Creatinine 2.80 H Estimated Creat Clear 36 Estimated GFR 26 L Est GFR ( Amer) 31 L D Glucose 103 D POC Glucose 113 H Random Glucose Calcium 7.9 L D Total Bilirubin 0.3 AST 20 D ALT 52 D Alkaline Phosphatase 536 H Troponin I Total Protein 4.9 L D Albumin 1.7 L D Globulin 3.2 Albumin/Globulin Ratio 0.5 L Urine Color Urine Appearance Urine pH Ur Specific [place] Urine Protein Urine Glucose (UA) Urine Ketones Urine Blood Urine Nitrate Urine Bilirubin Urine Urobilinogen Ur Leukocyte Esterase Urine RBC Urine WBC Urine Bacteria Urine Opiates Screen Urine Methadone Screen Ur Barbituates Screen Ur Phencyclidine Scrn Ur Amphetamines Screen U Benzodiazepines Scrn Urine Cocaine Screen U Marijuana (THC) Screen Acetone Level None detected 03/16/19 03/16/19 03/16/19 04:05 03:55 03:07 WBC 14.1 H D RBC 3.08 L Hgb 9.3 L D Hct 29.3 L MCV 95.1 H MCH 30.3 MCHC 31.9 RDW 17.2 Plt Count 391 D MPV 7.4 Neut % (Auto) 63.0 Lymph % (Auto) 30.1 [place] % (Auto) 5.7 Eos % (Auto) 0.9 Baso % (Auto) 0.4 Neut # (Auto) 8.9 H Lymph # (Auto) 4.2 [place] # (Auto) 0.8 Eos # (Auto) 0.1 Baso # (Auto) 0.1 Total Counted Neutrophils % (Manual) Lymphocytes % (Manual) Monocytes % (Manual) Platelet Estimate Macrocytosis Specimen Source O2 % ABG pH ABG pCO2 ABG pO2 ABG HCO3 ABG Total CO2 ABG O2 Saturation ABG Base Excess [place] Test Sodium Potassium Chloride Carbon Dioxide Anion Gap BUN Creatinine Estimated Creat Clear Estimated GFR Est GFR ( Amer) Glucose POC Glucose 104 115 H Random Glucose Calcium Total Bilirubin AST ALT Alkaline Phosphatase Troponin I Total Protein Albumin Globulin Albumin/Globulin Ratio Urine Color Urine Appearance Urine pH Ur Specific [place] Urine Protein Urine Glucose (UA) Urine Ketones Urine Blood Urine Nitrate Urine Bilirubin Urine Urobilinogen Ur Leukocyte Esterase Urine RBC Urine WBC Urine Bacteria Urine Opiates Screen Urine Methadone Screen Ur Barbituates Screen Ur Phencyclidine Scrn Ur Amphetamines Screen U Benzodiazepines Scrn Urine Cocaine Screen U Marijuana (THC) Screen Acetone Level 03/16/19 03/16/19 03/15/19 01:54 00:55 23:53 WBC RBC Hgb Hct MCV MCH MCHC RDW Plt Count MPV Neut % (Auto) Lymph % (Auto) [place] % (Auto) Eos % (Auto) Baso % (Auto) Neut # (Auto) Lymph # (Auto) [place] # (Auto) Eos # (Auto) Baso # (Auto) Total Counted Neutrophils % (Manual) Lymphocytes % (Manual) Monocytes % (Manual) Platelet Estimate Macrocytosis Specimen Source O2 % ABG pH ABG pCO2 ABG pO2 ABG HCO3 ABG Total CO2 ABG O2 Saturation ABG Base Excess [place] Test Sodium Potassium Chloride Carbon Dioxide Anion Gap BUN Creatinine Estimated Creat Clear Estimated GFR Est GFR ( Amer) Glucose POC Glucose 155 H 107 155 H Random Glucose Calcium Total Bilirubin AST ALT Alkaline Phosphatase Troponin I Total Protein Albumin Globulin Albumin/Globulin Ratio Urine Color Urine Appearance Urine pH Ur Specific [place] Urine Protein Urine Glucose (UA) Urine Ketones Urine Blood Urine Nitrate Urine Bilirubin Urine Urobilinogen Ur Leukocyte Esterase Urine RBC Urine WBC Urine Bacteria Urine Opiates Screen Urine Methadone Screen Ur Barbituates Screen Ur Phencyclidine Scrn Ur Amphetamines Screen U Benzodiazepines Scrn Urine Cocaine Screen U Marijuana (THC) Screen Acetone Level 03/15/19 03/15/19 03/15/19 22:48 21:34 20:35 WBC RBC Hgb Hct MCV MCH MCHC RDW Plt Count MPV Neut % (Auto) Lymph % (Auto) [place] % (Auto) Eos % (Auto) Baso % (Auto) Neut # (Auto) Lymph # (Auto) [place] # (Auto) Eos # (Auto) Baso # (Auto) Total Counted Neutrophils % (Manual) Lymphocytes % (Manual) Monocytes % (Manual) Platelet Estimate Macrocytosis Specimen Source O2 % ABG pH ABG pCO2 ABG pO2 ABG HCO3 ABG Total CO2 ABG O2 Saturation ABG Base Excess [place] Test Sodium Potassium Chloride Carbon Dioxide Anion Gap BUN Creatinine Estimated Creat Clear Estimated GFR Est GFR ( Amer) Glucose POC Glucose 265 H 354 H* Random Glucose 486 H Calcium Total Bilirubin AST ALT Alkaline Phosphatase Troponin I Total Protein Albumin Globulin Albumin/Globulin Ratio Urine Color Urine Appearance Urine pH Ur Specific [place] Urine Protein Urine Glucose (UA) Urine Ketones Urine Blood Urine Nitrate Urine Bilirubin Urine Urobilinogen Ur Leukocyte Esterase Urine RBC Urine WBC Urine Bacteria Urine Opiates Screen Urine Methadone Screen Ur Barbituates Screen Ur Phencyclidine Scrn Ur Amphetamines Screen U Benzodiazepines Scrn Urine Cocaine Screen U Marijuana (THC) Screen Acetone Level 03/15/19 03/15/19 03/15/19 20:24 17:25 15:45 WBC RBC Hgb Hct MCV MCH MCHC RDW Plt Count MPV Neut % (Auto) Lymph % (Auto) [place] % (Auto) Eos % (Auto) Baso % (Auto) Neut # (Auto) Lymph # (Auto) [place] # (Auto) Eos # (Auto) Baso # (Auto) Total Counted Neutrophils % (Manual) Lymphocytes % (Manual) Monocytes % (Manual) Platelet Estimate Macrocytosis Specimen Source Right radial O2 % Room air ABG pH 7.01 L* ABG pCO2 11.4 L ABG pO2 137.6 H ABG HCO3 2.8 L ABG Total CO2 3.2 L ABG O2 Saturation 97 ABG Base Excess -28.3 L [place] Test Patient unable Sodium Potassium Chloride Carbon Dioxide Anion Gap BUN Creatinine Estimated Creat Clear Estimated GFR Est GFR ( Amer) Glucose POC Glucose 530 H* Random Glucose 920 H* D Calcium Total Bilirubin AST ALT Alkaline Phosphatase Troponin I < 0.02 Total Protein Albumin Globulin Albumin/Globulin Ratio Urine Color Urine Appearance Urine pH Ur Specific [place] Urine Protein Urine Glucose (UA) Urine Ketones Urine Blood Urine Nitrate Urine Bilirubin Urine Urobilinogen Ur Leukocyte Esterase Urine RBC Urine WBC Urine Bacteria Urine Opiates Screen Urine Methadone Screen Ur Barbituates Screen Ur Phencyclidine Scrn Ur Amphetamines Screen U Benzodiazepines Scrn Urine Cocaine Screen U Marijuana (THC) Screen Acetone Level 03/15/19 03/15/19 03/15/19 15:35 15:35 15:15 WBC RBC Hgb Hct MCV MCH MCHC RDW Plt Count MPV Neut % (Auto) Lymph % (Auto) [place] % (Auto) Eos % (Auto) Baso % (Auto) Neut # (Auto) Lymph # (Auto) [place] # (Auto) Eos # (Auto) Baso # (Auto) Total Counted Neutrophils % (Manual) Lymphocytes % (Manual) Monocytes % (Manual) Platelet Estimate Macrocytosis Specimen Source O2 % ABG pH ABG pCO2 ABG pO2 ABG HCO3 ABG Total CO2 ABG O2 Saturation ABG Base Excess [place] Test Sodium Potassium Chloride Carbon Dioxide Anion Gap BUN Creatinine Estimated Creat Clear Estimated GFR Est GFR ( Amer) Glucose POC Glucose Random Glucose Calcium Total Bilirubin AST ALT Alkaline Phosphatase Troponin I Total Protein Albumin Globulin Albumin/Globulin Ratio Urine Color Straw Urine Appearance Clear Urine pH 6.0 Ur Specific [place] 1.010 Urine Protein Trace Urine Glucose (UA) 3+ Urine Ketones 2+ Urine Blood Trace-l Urine Nitrate Negative Urine Bilirubin Negative Urine Urobilinogen 0.2 Ur Leukocyte Esterase 1+ A Urine RBC Occasional Urine WBC 3-5 Urine Bacteria Trace Urine Opiates Screen Negative Urine Methadone Screen Negative Ur Barbituates Screen Negative Ur Phencyclidine Scrn Negative Ur Amphetamines Screen Negative U Benzodiazepines Scrn Negative Urine Cocaine Screen Negative U Marijuana (THC) Screen Negative Acetone Level Large 03/15/19 03/15/19 15:15 15:15 WBC 20.5 H* RBC 3.96 L Hgb 12.1 L Hct 46.3 MCV 116.9 H MCH 30.4 MCHC 26.0 L RDW 17.3 Plt Count 587 H MPV 8.8 Neut % (Auto) 75.4 Lymph % (Auto) 19.2 [place] % (Auto) 3.8 Eos % (Auto) 0.9 Baso % (Auto) 0.7 Neut # (Auto) 15.5 H Lymph # (Auto) 3.9 [place] # (Auto) 0.8 Eos # (Auto) 0.2 Baso # (Auto) 0.2 Total Counted 100 Neutrophils % (Manual) 75 Lymphocytes % (Manual) 21 Monocytes % (Manual) 4 Platelet Estimate Moderate increase Macrocytosis 2+ Specimen Source O2 % ABG pH ABG pCO2 ABG pO2 ABG HCO3 ABG Total CO2 ABG O2 Saturation ABG Base Excess [place] Test Sodium 135 L Potassium 6.1 H* Chloride 93 L Carbon Dioxide 6 L* Anion Gap 42.1 H BUN 57 H Creatinine 3.48 H Estimated Creat Clear 38 Estimated GFR 20 L Est GFR ( Amer) 24 L Glucose 1275 H* POC Glucose Random Glucose Calcium 9.2 Total Bilirubin 0.7 AST 42 H ALT 80 H Alkaline Phosphatase 865 H Troponin I Total Protein 7.1 Albumin 2.5 L Globulin 4.6 H Albumin/Globulin Ratio 0.5 L Urine Color Urine Appearance Urine pH Ur Specific [place] Urine Protein Urine Glucose (UA) Urine Ketones Urine Blood Urine Nitrate Urine Bilirubin Urine Urobilinogen Ur Leukocyte Esterase Urine RBC Urine WBC Urine Bacteria Urine Opiates Screen Urine Methadone Screen Ur Barbituates Screen Ur Phencyclidine Scrn Ur Amphetamines Screen U Benzodiazepines Scrn Urine Cocaine Screen U Marijuana (THC) Screen Acetone Level DS: Diagnosis - Discharge Diagnosis (1) Recurrent UTI Status: Chronic (2) DKA, type 1 Status: Resolved (3) Acute renal failure (ARF) Status: Acute (4) Anemia Status: Chronic Discharge Medications - Medications for Discharge Home Medication List at Discharge: Continued Albuterol Sulfate [Proair Hfa 90mcg/puff Inh] 2 puffs IH Q4HP PRN #1 inh PRN Reason: Shortness Of Breath Or Wheezing Gabapentin [Neurontin 800mg Tab] 800 mg PO QID Carvedilol [Carvedilol 6.25mg Tab] 12.5 mg PO BID #60 tablet Insulin Aspart [Novolog] 0 unit SQ DAILY levoFLOXacin [Levaquin 500mg tab] 500 mg PO DAILY #14 tab Changed Insulin Glargine,Hum.[email or web address].anlog [Insulin Glargine 100 Units/mL 3mL flexpen] 45 unit SQ HS 30 Days #3 [email or web address]
== END 2019-03-16 11:46 | disposition home or self-care (01) ==
LOC: ER 15:11 → ICU 17:12 → INTOOBSV 18:09 → ICU 18:10
PROVIDERS: ADMIT Internal Medicine Adolescent Medicine; ATTEND Internal Medicine Adolescent Medicine
CPT/HCPCS: 36415; 71010; 71045; 80053; 80305; 81001; 82009; 82803; 82947; 82962; 84484; 85007; 85025; 87086; 93005; 96365; 96366; 96367; 96375; 99285; G0378

== ENCOUNTER 2019-06-29 18:33 | Inpatient (IN) ==
--- NOTE | 2019-06-29 18:47 | Emergency Department Note ---
ED Disposition Clinical Impression: Hyperkalemia DKA, type 1 Qualifiers: Diabetes mellitus complication detail: without coma Qualified Code(s): E10.10 - Type 1 diabetes mellitus with ketoacidosis without coma UTI (urinary tract infection) Qualifiers: Urinary tract infection type: site unspecified Hematuria presence: with hematuria Qualified Code(s): N39.0 - Urinary tract infection, site not specified; R31.9 - Hematuria, unspecified Disposition: Admitted As Inpatient Condition on Discharge: Critical - Critical Care Critical Care Time: Yes Attestation: On 06/29/19, the high probability of a clinically significant, sudden or life threatening deterioration of the following system(s) required my full and direct attention, intervention and personal management. The time I documented below is in addition to time spent performing reported procedures but includes the following listed in this critical care notation. Total Critical Care Time: 60 Vital system(s) involved:: Metabolic Failure My critical care processes included: Assessment & monitoring of V/S, Initial and Re-exams, Data Review/Interpretation, Coordinating Care, Medication Orders and management, Documentation Medical Decision Making - Michael Inquiry Pt receiving controlled substance: No Vital Signs: 06/29/19 18:42 06/29/19 19:50 Pulse Rate 103 H Pulse Rate [Left Radial] 134 H Respiratory Rate 20 Blood Pressure [Right Arm] 151/82 H Blood Pressure Mean [Right Arm] 105 Blood Pressure Source [Right Arm] Automatic Cuff Blood Pressure Position [Right Arm] Sitting 02 Sat by Pulse Oximetry 100 Oxygen Delivery Method Room Air - Lab Data Lab Results 06/29/19 18:15: Random Glucose 1465 H* D, Troponin I < 0.02 06/29/19 18:15: Acetone Level Small 06/29/19 18:15: WBC 24.9 H*, RBC 4.28 L, Hgb 12.5 L, Hct 49.0, MCV 114.5 H, MCH 29.1, MCHC 25.4 L, RDW 13.2, Plt Count 509 H, MPV 9.4, Neut % (Auto) 86.2 H, Lymph % (Auto) 9.1 L, [place] % (Auto) 4.0, Eos % (Auto) 0.2, Baso % (Auto) 0.6, Neut # (Auto) 21.5 H, Lymph # (Auto) 2.3, [place] # (Auto) 1.0, Eos # (Auto) 0.1, Baso # (Auto) 0.1, Total Counted 100, Neutrophils % (Manual) 77 H, Band Neutrophils % 10.0 H, Lymphocytes % (Manual) 13, Platelet Estimate Slight increase, RBC Morphology Not Reportable, Macrocytosis 2+, Rouleaux 1+ 06/29/19 18:15: Sodium 125 L, Potassium 7.7 H*, Chloride 84 L, Carbon Dioxide 5 L*, Anion Gap 43.7 H, BUN 69 H, Creatinine 4.32 H, Estimated Creat Clear 24, Estimated GFR 16 L*, Est GFR ( Amer) 19 L*, Glucose 1465 H*, Calcium 9.6, Total Bilirubin 0.5, AST 19, ALT 33, Alkaline Phosphatase 248 H, Total Protein 7.8, Albumin 3.2 L, Globulin 4.6 H, Albumin/Globulin Ratio 0.7 L 06/29/19 18:15: Phosphorus 11.8 H, Magnesium 2.9 H 06/29/19 18:39: Urine Color Yellow, Urine Appearance Cloudy, Urine pH 5.5, Ur Specific [place] 1.020, Urine Protein 2+, Urine Glucose (UA) 3+, Urine Ketones 2+, Urine Blood 3+, Urine Nitrate Negative, Urine Bilirubin Negative, Urine Urobilinogen 0.2, Ur Leukocyte Esterase 1+ A, Urine RBC 10-20, Urine WBC Tntc 06/29/19 19:00: Lipase 103 06/29/19 19:00: Lactate 7.5 H 06/29/19 19:01: VBG pH 6.92 L, VBG pCO2 17.4 L, VBG pO2 106.6 H, VBG HCO3 3.4 L, VBG Total CO2 4.0 L, VBG O2 Saturation 94.9 H, VBG Base Excess -29.2 L Result diagrams: 06/29/19 18:15 06/29/19 18:15 Orders (Tests/Meds): ED MEDICATIONS Generic Name Dose Route Start Last Admin Trade Name Freq PRN Reason Stop Dose Admin Insulin Human Regular 100 unit 101 mls @ 7.33 mls/hr 06/29/19 19:45 / Sodium Chloride IV 07/29/19 19:44 .[id number] CASTILLO Protocol 0.1 UNITS/KG/HR Levofloxacin/Dextrose 750 mg in 150 mls @ 100 mls/hr 06/29/19 19:45 06/29/19 20:35 Levofloxacin 750mg/150ml Premix IV 07/13/19 19:44 100 mls/hr Q24H CASTILLO Administration Protocol Sodium Chloride 2,180 mls @ 1,090 mls/hr 06/29/19 19:49 06/29/19 20:35 Sod Chlor 0.9% 1000ml Bag 30 ml/kg infuse over 2 hr (2180 ml) 06/29/19 21:48 1,090 mls/hr IV Administration .Q2H ONE Discontinued Medications Generic Name Dose Route Start Last Admin Trade Name Freq PRN Reason Stop Dose Admin Albuterol Sulfate 2.5 mg 06/29/19 19:33 06/29/19 19:49 Albuterol 0.083% 2.5mg/3ml Neb IH 06/29/19 19:34 2.5 mg ONCE ONE Administration Calcium Gluconate 1,000 mg/ 35 mls @ 100 mls/hr 06/29/19 19:31 06/29/19 20:33 Sodium Chloride IV 06/29/19 19:51 100 mls/hr ONCE ONE Administration Insulin Human Regular 10 unit 06/29/19 19:31 Humulin R Insulin 100 Units/Ml 10ml Vial IVP 06/29/19 19:32 ONCE ONE Sodium Bicarbonate 50 meq 06/29/19 19:31 06/29/19 20:34 Sodium Bicarbonate 8.4% 50ml Syringe IV 06/29/19 19:32 50 meq ONCE ONE Administration Sodium Chloride 1,000 ml 06/29/19 18:52 06/29/19 19:39 Sod Chlor 0.9% 1000ml Bag IV 06/29/19 18:53 1,000 ml BOLUS ONE Administration ORDERS Category Date Time Status XR chest portable Stat Exams 06/29/19 18:52 Taken Blood Culture Stat Micro 06/29/19 19:00 Received Urine Culture Stat Micro 06/29/19 18:39 Received Venous Blood Gas Stat RT 06/29/19 18:39 Ordered - ECG Data Tracing #1 EKG interpreted by Wilver Stewart MD: Rhythm: sinus tachycardia Rate: 133 Williams: normal Ectopy: none Conduction: normal ST Segment Changes: none T Wave Changes: Peaked in leads V3 and V4 Q Waves: none No evidence of acute ischemia or injury Baseline artifact and wander present, but I consider the EKG adequate for accurate interpretation. - Tissue Perfus/Sepsis Re-Eval Reperfusion Exam Performed: Yes Date Performed: 06/29/19 Time Performed: 21:01 Sepsis Follow-Up: Yes: Respiratory exam, Cardiovascular exam, Capillary refill, Peripheral pulse strength, Peripheral pulse location, Skin exam, Vital Signs Medical Decision Narrative: Last DKA admission here 03/15/19. General Adult HPI - General Chief complaint: Hyper/Hypoglycemia Stated complaint: hyperglycemia Time Seen by Provider: 06/29/19 18:47 - History of Present Illness HPI narrative: Known type I diabetic with frequent episodes of DKA who now presents by ambulance with altered mental status, with the appearance of DKA. Patient is unable to answer any questions. - Related Data Home Medications Medication Instructions Recorded Confirmed Gabapentin [Neurontin 800mg Tab] 800 mg PO QID 11/08/18 06/29/19 Insulin Aspart [Novolog] 0 unit SQ DAILY 03/15/19 06/29/19 Gabapentin [Neurontin 400mg 400 mg PO QID 06/29/19 06/29/19 cap] Previous Rx's Medication Instructions Recorded Albuterol Sulfate [Proair Hfa 2 puffs IH Q4HP PRN #1 inh 09/15/18 90mcg/puff Inh] Carvedilol [Carvedilol 6.25mg Tab] 12.5 mg PO BID #60 tablet 02/17/19 Insulin Glargine,Hum.rec.anlog 45 unit SQ HS 30 Days #3 insuln.pen 03/16/19 [Insulin Glargine 100 Units/mL 3mL flexpen] Allergies Allergy/AdvReac Type Severity Reaction Status Date / Time Penicillins [PENICILLINS] Allergy Severe I-HIVES Verified 02/16/19 02:19 [facility] History - Hepatitis A Screen Attestation statement:: This patient has been screened for Hepatitis A risk factors. I have reviewed the patient's past medical history: Yes Medical History: Reports:: Diabetes Mellitus Type 1, Hyperlipidemia, Hypertension, Renal Disease, Renal Insufficiency, Urinary Tract Infection Denies:: Cancer, Diabetes Mellitus Type 2, MRSA Other Medical History: Reports: Liver Disease, Other Comment: Bladder dysfunction with chronic UTI Laterality Cases: Bilateral: Tonsillectomy Other Surgeries: Yes: No Previous Surgery (Tonsillectomy), Other Amputation: No Fractures: No - Social History Smoking Status: Never smoker Tobacco Type: smokeless tobacco # Packs/Day (cigarettes): 0 Alcohol Intake: current Alcohol Intake Frequency:: holidays/special occasions only Substance Use Type: denies use Occupational Status: unemployed Housing: apartment Household Members: significant other, family, children Family Hx:: Asthma, Cancer, Heart Attack, Hyperlipidemia, Hypertension, Kidney Disease, Stroke ROS Obtained: Yes unobtainable due to mental status Physical Exam - General General appearance: other (GCS 8) Comment: [place] respirations. Restless. - Head Head exam: atraumatic, normocephalic - Eye Eye exam: Present: PERRL, EOMI - ENT ENT exam: Present: mucous membranes dry - Neck Neck exam: Present: normal inspection, full ROM, trachea midline. Absent: meningismus - Chest Chest inspection: Present: normal inspection, symmetric chest wall rise - Respiratory Respiratory exam: Present: normal lung sounds bilaterally - Cardiovascular Cardiovascular exam: Present: normal rhythm, tachycardia, normal heart sounds - Abdominal Exam Abdominal exam: Present: soft, normal bowel sounds. Absent: distention, tenderness, guarding - Extremities Exam Extremities exam: Present: normal inspection - Neurological Exam Neurological exam: Present: other (see above) - Skin Skin exam: Present: warm, dry
[2019-06-29 19:02] LABS: VBG Base Excess -29.2 mmol/L (-2.4-2.3); VBG HCO3 3.4 mmol/L (23-30); VBG Oxygen Saturation 94.9 % (50-70); VBG PO2 106.6 mmol/L (28-40)
[2019-06-29 19:03] LABS: VBG PCO2 17.4 mmol/L (35-51); VBG PH 6.92 mmol/L (7.31-7.41)
[2019-06-29 19:04] LABS: Microscopic, Urine URINE MICROSCOPIC (MICROSCOPIC)
[2019-06-29 19:06] LABS: Appearance,Urine CLOUDY (Clear); Bilirubin,Urine Negative (Negative); Blood, Urine 3+ (Negative); Color,Urine YELLOW (Yellow); Glucose,Urine (UA) 3+ (Negative); Ketones,Urine 2+ (Negative); Leukocyte Esterase,Urine 1+ (Negative); PH,Urine 5.5 (5.0-8.5); Protein,Urine 2+ (Negative); Urobilinogen,Urine 0.2 EU/dl (0.2)
[2019-06-29 19:07] LABS: Basophils # 0.1 K/mm3 (0-0.2); Basophils % 0.6 % (0.1-2.0); Eosinophils # 0.1 K/mm3 (0.0-0.4); Eosinophils % 0.2 % (0.1-12.0); Hemoglobin 12.5 g/dL (14.1-18.0); Lymphocytes # 2.3 K/mm3 (0.7-4.5); Lymphocytes % 9.1 % (10-50); Mean Corpuscular HGB Conc 25.4 g/dL (31.8-35.4); Mean Corpuscular Volume 114.5 fl (80-94); Mean Platelet Volume 9.4 fl (7.4-10.4); Neutrophils # 21.5 K/mm3 (1.8-7.8); Neutrophils % 86.2 % (37.0-80.0); Platelet Count 509 K/mm3 (142-424); Red Blood Count 4.28 M/mm3 (4.60-6.20); Red Cell Distribution Width 13.2 % (11.5-17.5)
[2019-06-29 19:12] LABS: White Blood Count 24.9 K/mm3 (4.8-10.8)
[2019-06-29 19:14] LABS: WBC,Urine TNTC #/hpf (0-3)
[2019-06-29 19:15] LABS: Glucose,Random 1465 mg/dL (70-110)
[2019-06-29 19:20] LABS: Albumin Level 3.2 gm/dL (3.4-5.0); Albumin/Globulin Ratio 0.7 (1.1-1.8); Bilirubin,Total 0.5 mg/dL (0.2-1.0); Calcium 9.6 mg/dL (8.5-10.1); Globulin 4.6 gm/dl (1.3-3.2); Total Protein,Serum 7.8 gm/dL (6.4-8.2)
[2019-06-29 19:22] LABS: Anion Gap 43.7 mEq/L (5-15)
[2019-06-29 19:35] LABS: Phosphorous 11.8 mg/dL (2.4-4.9)
[2019-06-29 19:48] LABS: Lymphocytes % 13 % (10-50); Neutrophils % 77 % (42-76); Total Cells Counted 100
[2019-06-29 19:49] LABS: Macrocytosis 2+; Rouleaux 1+
[2019-06-29 21:54] LABS: Acetone, Serum (Rapid) Small (None Detect)
[2019-06-29 22:09] LABS: Anion Gap 37.5 mEq/L (5-15); Blood Urea Nitrogen 70 mg/dL (7-18); Calcium 8.7 mg/dL (8.5-10.1); Chloride 93 mmol/L (98-107); Sodium 133 mmol/L (136-145)
[2019-06-29 22:25] LABS: Carbon Dioxide 8 mmol/L (21.0-32.0)
[2019-06-29 22:26] LABS: Glucose 1142 mg/dL (74-106); Phosphorous 9.8 mg/dL (2.4-4.9)
[2019-06-30 01:57] LABS: Anion Gap 22.2 mEq/L (5-15)
[2019-06-30 06:05] LABS: Anion Gap 15.4 mEq/L (5-15); Calcium 8.1 mg/dL (8.5-10.1)
--- NOTE | 2019-06-30 08:34 | Pharmacy Consult Notes ---
[facility] Pharmacy VTE Monitoring - Patient Demographics Admission date: 06/29/19 Report Date: 06/30/19 Time: 08:33 Allergies/Adverse Reactions: Patient Allergies Penicillins [PENICILLINS] Allergy (Severe, Verified 02/16/19 02:19) I-HIVLAW Height: 1.73 m Weight: 72.575 kg Patient Problems: Current Active Problems Hyperkalemia (Acute) UTI (urinary tract infection) (Acute) DKA, type 1 (Acute) - VTE Risk Labs: VTE Related Lab Results Hgb 12.5 g/dL (14.1-18.0) L 06/29/19 18:15 Hct 49.0 % (42.0-52.0) 06/29/19 18:15 Plt Count 509 K/mm3 (142-424) H 06/29/19 18:15 BUN 59 mg/dL (7-18) H 06/30/19 05:20 Creatinine 3.46 mg/dL (0.70-1.30) H 06/30/19 05:20 Estimated Creat Clear 30 mL/min (50-200) 06/30/19 05:20 VTE Score: 4 VTE Risk Level: Low Risk - Prophylaxis VTE Prophylaxis Ordered?: Yes Types of VTE Prophylaxis: TEDS Knee High Location of Applied Device: Bilateral Lower Extremeties
--- NOTE | 2019-06-30 08:52 | History & Physical Report ---
*Admission Date: 06/29/19 *Chief complaint: Comatose status *History of present illness: 38-year-old white male, with long history of complicated and poorly controlled type 1 diabetes, with frequent admissions for diabetic ketoacidosis, complicated by chronic urinary tract infection and severely exacerbated by his medical noncompliance, who presented to the emergency department yesterday afternoon in DKA and comatose. Please refer to ER note for details of presentation. In the emergency department patient was treated with IV fluids. Labs were significant for significant hyperglycemia, significant acidosis with pH less than 7, hypocalcemia, hyperkalemia and abnormal urinalysis. Patient was treated with fluid infusions, insulin infusions and somewhat improved with slight improvement of his mental status and transferred up to the floor. In regards to patient's history of noncompliance: Patient has missed multiple appointments in our office over the past month, and we have actually begun the process of discharging the patient from our practice in regards to his noncompliance. It is nearly impossible to care for this patient as I have-on multiple occasions, along with my partner, provided him with catheters, instructions for urology follow-up and instructions for follow-up in our office which he routinely ignores-for a variety of self-reported reasons, namely insurance issues, lack of transportation, etc. Patient has Medicare and Medicaid, and has transportation options-our nurses today informed me that 2 of them saw him 2 days ago at the local [employer], driving himself to the store and then proceeding to fill his grocery cart with [place] snack cake products and bottles of Mountain Dew. Patient blames most of his DKA episodes on urinary tract infections, and states that he cannot afford/make it to urology appointments to follow-up his need for self-catheterization because of his chronic cystitis and urinary outlet obstruction. Again, I do not believe this is actually the case. Patient tells me this morning that he may have missed some of his insulin shots because "we have a new routine at home where mom (patient's ) goes to work and dad (himself) is in charge of his insulin shots and dad may have missed some shots." [facility] History Medical History: Reports:: Diabetes Mellitus Type 1, Hyperlipidemia, Hypertension, Renal Disease, Renal Insufficiency, Urinary Tract Infection Denies:: Cancer, Diabetes Mellitus Type 2, MRSA *Have you ever received a pneumonia vaccine?: Yes *Have you received a flu vaccine this season?: Yes Other Medical History: Reports: Anemia, Liver Disease, Other Laterality Cases: Bilateral: Tonsillectomy Other Surgeries: Yes: No Previous Surgery (Tonsillectomy), Other Amputation: No Fractures: No - *Social History Educational Level: Attended High School Smoking Status: Light tobacco smoker Tobacco Type: e-cigarettes # Packs/Day (cigarettes): 1 Alcohol Intake: former Alcohol Intake Frequency:: holidays/special occasions only Substance Use Type: marijuana, opiates, painkillers Last Used Substance: unknown *Occupational Status:: unemployed Housing: apartment Household Members: significant other, family, children *Travel in the last 8 weeks: None - Psychiatric History Expresses thoughts of harming self/others: None Suicide Plan Description: No Plan Family Hx:: Anemia, Asthma, Cancer, Coronary Artery Disease, Diabetes, Heart Attack, Hyperlipidemia, Hypertension, Kidney Disease, Stroke, Tuberculosis Review of Systems - Review of Systems Review of systems:: pertinent systems reviewed and negative unless documented below - Constitutional Reports anorexia, Reports malaise - ENT Reports poor balance, Reports dizziness, Reports dry mouth - *Cardiovascular Denies chest pain, Denies excessive sweating, Denies irregular heart rhythm - *Respiratory Denies change in phlegm color, Denies shortness of breath with activity Meds Home Medications Medication Instructions Recorded Confirmed Type Albuterol Sulfate [Proair Hfa 2 puffs IH Q4HP PRN #1 inh 09/15/18 06/29/19 Rx 90mcg/puff Inh] Gabapentin [Neurontin 800mg Tab] 800 mg PO QID 11/08/18 06/29/19 History Carvedilol [Carvedilol 6.25mg Tab] 12.5 mg PO BID #60 tablet 02/17/19 06/29/19 Rx Insulin Aspart [Novolog] 0 unit SQ DAILY 03/15/19 06/29/19 History Insulin Glargine,Hum.rec.anlog 45 unit SQ HS 30 Days #3 insuln.pen 03/16/19 06/29/19 Rx [Insulin Glargine 100 Units/mL 3mL flexpen] Allergies Allergy/AdvReac Type Severity Reaction Status Date / Time Penicillins [PENICILLINS] Allergy Severe I-HIVES Verified 02/16/19 02:19 Exam Vital signs and Labs for Last 24 Hours: Temp Pulse Resp BP Pulse Ox 97.9 F 89 18 128/80 97 06/30/19 08:00 06/30/19 08:17 06/30/19 08:17 06/30/19 08:00 06/30/19 08:00 Laboratory Results - last 24 hr 06/29/19 18:15: Random Glucose 1465 H* D, Troponin I < 0.02 06/29/19 18:15: Acetone Level Small 06/29/19 18:15: WBC 24.9 H*, RBC 4.28 L, Hgb 12.5 L, Hct 49.0, MCV 114.5 H, MCH 29.1, MCHC 25.4 L, RDW 13.2, Plt Count 509 H, MPV 9.4, Neut % (Auto) 86.2 H, Lymph % (Auto) 9.1 L, [place] % (Auto) 4.0, Eos % (Auto) 0.2, Baso % (Auto) 0.6, Neut # (Auto) 21.5 H, Lymph # (Auto) 2.3, [place] # (Auto) 1.0, Eos # (Auto) 0.1, Baso # (Auto) 0.1, Total Counted 100, Neutrophils % (Manual) 77 H, Band Neutrophils % 10.0 H, Lymphocytes % (Manual) 13, Platelet Estimate Slight increase, RBC Morphology Not Reportable, Macrocytosis 2+, Rouleaux 1+ 06/29/19 18:15: Sodium 125 L, Potassium 7.7 H*, Chloride 84 L, Carbon Dioxide 5 L*, Anion Gap 43.7 H, BUN 69 H, Creatinine 4.32 H, Estimated Creat Clear 24, Estimated GFR 16 L*, Est GFR ( Amer) 19 L*, Glucose 1465 H*, Calcium 9.6, Total Bilirubin 0.5, AST 19, ALT 33, Alkaline Phosphatase 248 H, Total Protein 7.8, Albumin 3.2 L, Globulin 4.6 H, Albumin/Globulin Ratio 0.7 L 06/29/19 18:15: Phosphorus 11.8 H, Magnesium 2.9 H 06/29/19 18:39: Urine Color Yellow, Urine Appearance Cloudy, Urine pH 5.5, Ur Specific [place] 1.020, Urine Protein 2+, Urine Glucose (UA) 3+, Urine Ketones 2+, Urine Blood 3+, Urine Nitrate Negative, Urine Bilirubin Negative, Urine Urobilinogen 0.2, Ur Leukocyte Esterase 1+ A, Urine RBC 10-20, Urine WBC Tntc 06/29/19 19:00: Lipase 103 06/29/19 19:00: Lactate 7.5 H 06/29/19 19:01: VBG pH 6.92 L, VBG pCO2 17.4 L, VBG pO2 106.6 H, VBG HCO3 3.4 L, VBG Total CO2 4.0 L, VBG O2 Saturation 94.9 H, VBG Base Excess -29.2 L 06/29/19 21:35: Sodium 133 L, Potassium 5.5 H D, Chloride 93 L, Carbon Dioxide 8 L* D, Anion Gap 37.5 H, BUN 70 H, Creatinine 4.16 H, Estimated Creat Clear 25, Estimated GFR 16 L*, Est GFR ( Amer) 20 L, Glucose 1142 H* D, Calcium 8 .7, Phosphorus 9.8 H, Magnesium 2.5 H D, Acetone Level Small 06/29/19 22:00: Lactate 5.1 H 06/29/19 23:35: Random Glucose 860 H* D 06/29/19 23:35: Lactate 3.9 H 06/30/19 01:20: Sodium 141, Potassium 4.2 D, Chloride 105, Carbon Dioxide 18 L D, Anion Gap 22.2 H, BUN 66 H, Creatinine 3.70 H, Estimated Creat Clear 28, Estimated GFR 19 L*, Est GFR ( Amer) 23 L, Glucose 724 H* D, Calcium 8.0 L 06/30/19 04:33: POC Glucose 276 H 06/30/19 04:56: POC Glucose 236 H 06/30/19 05:20: Sodium 150 H, Potassium 3.4 L, Chloride 113 H, Carbon Dioxide 25 D, Anion Gap 15.4 H, BUN 59 H, Creatinine 3.46 H, Estimated Creat Clear 30, Estimated GFR 20 L, Est GFR ( Amer) 24 L, Glucose 242 H D, Calcium 8.1 L 06/30/19 05:53: POC Glucose 165 H 06/30/19 06:45: POC Glucose 153 H 06/30/19 07:50: POC Glucose 155 H I & O for Last 24 hours: Intake & Output 06/27/19 06/28/19 06/29/19 06/30/19 11:59 11:59 11:59 11:59 Intake Total 5346 / 5346 Output Total 1475 / 1475 Balance 3871 / 3871 Weight 160 lb Narrative: Patient has regained consciousness this morning, is able to answer questions, is alert and oriented x3. Reports that he is slightly hungry. Lungs have good air movement. Heart rate slightly tachycardic but regular. Abdomen is soft. Patient skin is intact, warm and well-perfused. He has a variety of professionally done tattoos on his torso and upper arms. He has Wise catheter in place. No edema noted. Sensory loss in feet as previously noted. Assessment and Plan (1) Acute on chronic renal failure Problem details: Improvement with fluid resuscitation, suspect due to dehydration. Will need repeat lab work when follows up in clinic later this week. Current visit: No Status: Acute Qualifiers: Acute renal failure type: unspecified Chronic kidney disease stage: unspecified stage Qualified Code(s): N17.9 - Acute kidney failure, unspecified; N18.9 - Chronic kidney disease, unspecified Category: Medical Code(s): N17.9 - Acute kidney failure, unspecified; N18.9 - Chronic kidney disease, unspecified Significant renal dysfunction. Improving slightly this morning, watch carefully with fluids. (2) DKA, type 1 Current visit: Yes Status: Acute Qualifiers: Diabetes mellitus complication detail: without coma Qualified Code(s): E10.10 - Type 1 diabetes mellitus with ketoacidosis without coma Category: Medical Code(s): E10.10 - Type 1 diabetes mellitus with ketoacidosis without coma Severe ketoacidosis. Improving clinically. Continue current management. (3) Hyperkalemia Current visit: Yes Status: Acute Category: Medical Code(s): E87.5 - Hyperkalemia Hypokalemia resolved. Patient's total body potassium is probably low. Watch carefully. We switched over to replacement fluids for glucose and potassium this morning (4) Medically noncompliant Current visit: Yes Status: Acute Category: Medical Code(s): Z91.19 - Patient's noncompliance with other medical treatment and regimen Multiple issues. Patient has an extremely poor prognosis because of his noncompliance. (5) UTI (urinary tract infection) Current visit: Yes Status: Acute Qualifiers: Urinary tract infection type: site unspecified Hematuria presence: with hematuria Qualified Code(s): N39.0 - Urinary tract infection, site not specified; R31.9 - Hematuria, unspecified Category: Medical Code(s): N39.0 - Urinary tract infection, site not specified Chronic/recurrent cystitis secondary to multiple factors. Tolerated intravenous Levaquin. Await culture results.
[2019-06-30 09:40] LABS: Anion Gap 14.6 mEq/L (5-15); Blood Urea Nitrogen 57 mg/dL (7-18); Calcium 8.4 mg/dL (8.5-10.1); Carbon Dioxide 24 mmol/L (21.0-32.0); Glucose 168 mg/dL (74-106); Phosphorous 4.4 mg/dL (2.4-4.9)
[2019-06-30 09:50] LABS: Chloride 114 mmol/L (98-107); Sodium 149 mmol/L (136-145)
[2019-06-30 09:57] LABS: Acetone, Serum (Rapid) None Detected (None Detect)
[2019-07-01 05:52] LABS: Basophils # 0.1 K/mm3 (0-0.2); Basophils % 0.6 % (0.1-2.0); Eosinophils # 0.2 K/mm3 (0.0-0.4); Eosinophils % 1.9 % (0.1-12.0); Hematocrit 33.2 % (42.0-52.0); Hemoglobin 10.4 g/dL (14.1-18.0); Lymphocytes % 36.1 % (10-50); Mean Corpuscular HGB Conc 31.5 g/dL (31.8-35.4); Mean Corpuscular Volume 90.9 fl (80-94); Mean Platelet Volume 7.7 fl (7.4-10.4); Monocytes # 0.3 K/mm3 (0.1-1.0); Monocytes % 4.1 % (1.7-9.3); Neutrophils # 4.7 K/mm3 (1.8-7.8); Neutrophils % 57.3 % (37.0-80.0); Platelet Count 280 K/mm3 (142-424); Red Blood Count 3.65 M/mm3 (4.60-6.20); Red Cell Distribution Width 13.9 % (11.5-17.5); White Blood Count 8.2 K/mm3 (4.8-10.8)
[2019-07-01 06:39] LABS: Albumin Level 2.4 gm/dL (3.4-5.0); Albumin/Globulin Ratio 0.7 (1.1-1.8); Anion Gap 15.2 mEq/L (5-15); Bilirubin,Total 0.4 mg/dL (0.2-1.0); Calcium 8.1 mg/dL (8.5-10.1); Globulin 3.4 gm/dl (1.3-3.2); Total Protein,Serum 5.8 gm/dL (6.4-8.2)
--- NOTE | 2019-07-01 07:50 | Discharge Summary ---
General - General Admission date:: 06/29/19 Discharge date: 07/01/19 HPI HPI: 38-year-old white male, with long history of complicated and poorly controlled type 1 diabetes, with frequent admissions for diabetic ketoacidosis, complicated by chronic urinary tract infection and severely exacerbated by his medical noncompliance, who presented to the emergency department yesterday afternoon in DKA and comatose. Please refer to ER note for details of presentation. In the emergency department patient was treated with IV fluids. Labs were significant for significant hyperglycemia, significant acidosis with pH less than 7, hypocalcemia, hyperkalemia and abnormal urinalysis. Patient was treated with fluid infusions, insulin infusions and somewhat improved with slight improvement of his mental status and transferred up to the floor. In regards to patient's history of noncompliance: Patient has missed multiple appointments in our office over the past month, and we have actually begun the process of discharging the patient from our practice in regards to his noncompliance. It is nearly impossible to care for this patient as I have-on multiple occasions, along with my partner, provided him with catheters, instructions for urology follow-up and instructions for follow-up in our office which he routinely ignores-for a variety of self-reported reasons, namely insurance issues, lack of transportation, etc. Patient has Medicare and Medicai d, and has transportation options-our nurses today informed me that 2 of them saw him 2 days ago at the local [employer] store, driving himself to the store and then proceeding to fill his grocery cart with [employer] snack cake products and bottles of Mountain Dew. Patient blames most of his DKA episodes on urinary tract infections, and states that he cannot afford/make it to urology appointments to follow-up his need for self-catheterization because of his chronic cystitis and urinary outlet obstruction. Again, I do not believe this is actually the case. Patient tells me this morning that he may have missed some of his insulin shots because "we have a new routine at home where mom (patient's ) goes to work and dad (himself) is in charge of his insulin shots and dad may have missed some shots." Hospital Course Hospital Course: Patient was admitted, subjected to DKA protocols as noted. He improved very nicely over the next 24 hours, acetone resolved and his serum and electrolyte disturbances also resolved. Patient was switched over to IV dextrose and sliding scale insulin. He progressed to a diabetic diet last night. Had some episodes of fluctuating blood sugars but he was able to let the nursing staff know when these occurred. This morning patient is eating breakfast well. He reports that he has plenty of insulin at home, he has just missed several shots because of his 's work schedule. He is hemodynamically stable. DKA is resolved and he is at maximal medical improvement from an inpatient stay. Once again his main problem will be compliance with his significant medicine regimen. He reports he has plenty of insulin at home. We will try to effort a prescription for his urinary catheters. We will also schedule an appointment with urology for follow-up urinary retention issues. I will discharge him on a prescription of Levaquin for his chronic cystitis. And he will have an appointment made in our office. Objective Vital signs: Temp Pulse Resp BP Pulse Ox 98.4 F 91 H 18 163/98 H 97 07/01/19 04:00 07/01/19 04:00 07/01/19 04:00 07/01/19 04:00 07/01/19 04:00 Narrative: Patient is awake. Eating breakfast. Oriented x3. Heart rate regular. Lungs are clear. Oropharynx moist. No JVD. Abdomen soft. Neuropathic changes of legs as previously noted. Wise catheter draining cloudy yellow urine. Results Labs on day of discharge: Labs from last 24 hours 07/01/19 07/01/19 07/01/19 05:34 05:25 05:25 WBC 8.2 D RBC 3.65 L Hgb 10.4 L Hct 33.2 L MCV 90.9 MCH 28.6 MCHC 31.5 L RDW 13.9 Plt Count 280 D MPV 7.7 Neut % (Auto) 57.3 Lymph % (Auto) 36.1 [place] % (Auto) 4.1 Eos % (Auto) 1.9 Baso % (Auto) 0.6 Neut # (Auto) 4.7 Lymph # (Auto) 3.0 [place] # (Auto) 0.3 Eos # (Auto) 0.2 Baso # (Auto) 0.1 Sodium 142 Potassium 4.2 Chloride 110 H Carbon Dioxide 21 Anion Gap 15.2 H BUN 36 H D Creatinine 2.13 H D Estimated Creat Clear 54 Estimated GFR 35 L Est GFR ( Amer) 43 L D Glucose 117 H D POC Glucose 103 Calcium 8.1 L Phosphorus Magnesium Total Bilirubin 0.4 AST 191 H D ALT 73 D Alkaline Phosphatase 180 H Total Protein 5.8 L D Albumin 2.4 L D Globulin 3.4 H Albumin/Globulin Ratio 0.7 L Acetone Level 07/01/19 07/01/19 07/01/19 03:41 03:18 02:15 WBC RBC Hgb Hct MCV MCH MCHC RDW Plt Count MPV Neut % (Auto) Lymph % (Auto) [place] % (Auto) Eos % (Auto) Baso % (Auto) Neut # (Auto) Lymph # (Auto) [place] # (Auto) Eos # (Auto) Baso # (Auto) Sodium Potassium Chloride Carbon Dioxide Anion Gap BUN Creatinine Estimated Creat Clear Estimated GFR Est GFR ( Amer) Glucose POC Glucose 97 61 L 92 Calcium Phosphorus Magnesium Total Bilirubin AST ALT Alkaline Phosphatase Total Protein Albumin Globulin Albumin/Globulin Ratio Acetone Level 06/30/19 06/30/19 06/30/19 20:07 16:10 11:35 WBC RBC Hgb Hct MCV MCH MCHC RDW Plt Count MPV Neut % (Auto) Lymph % (Auto) [place] % (Auto) Eos % (Auto) Baso % (Auto) Neut # (Auto) Lymph # (Auto) [place] # (Auto) Eos # (Auto) Baso # (Auto) Sodium Potassium Chloride Carbon Dioxide Anion Gap BUN Creatinine Estimated Creat Clear Estimated GFR Est GFR ( Amer) Glucose POC Glucose 456 H* 138 H 166 H Calcium Phosphorus Magnesium Total Bilirubin AST ALT Alkaline Phosphatase Total Protein Albumin Globulin Albumin/Globulin Ratio Acetone Level 06/30/19 06/30/19 06/30/19 09:41 09:05 07:50 WBC RBC Hgb Hct MCV MCH MCHC RDW Plt Count MPV Neut % (Auto) Lymph % (Auto) [place] % (Auto) Eos % (Auto) Baso % (Auto) Neut # (Auto) Lymph # (Auto) [place] # (Auto) Eos # (Auto) Baso # (Auto) Sodium 149 H Potassium 3.6 Chloride 114 H Carbon Dioxide 24 Anion Gap 14.6 BUN 57 H Creatinine 3.20 H Estimated Creat Clear 33 Estimated GFR 22 L Est GFR ( Amer) 27 L Glucose 168 H D POC Glucose 150 H 155 H Calcium 8.4 L Phosphorus 4.4 D Magnesium 2.0 D Total Bilirubin AST ALT Alkaline Phosphatase Total Protein Albumin Globulin Albumin/Globulin Ratio Acetone Level None detected 06/30/19 06/30/19 06/30/19 03:59 03:56 00:53 WBC RBC Hgb Hct MCV MCH MCHC RDW Plt Count MPV Neut % (Auto) Lymph % (Auto) [place] % (Auto) Eos % (Auto) Baso % (Auto) Neut # (Auto) Lymph # (Auto) [place] # (Auto) Eos # (Auto) Baso # (Auto) Sodium Potassium Chloride Carbon Dioxide Anion Gap BUN Creatinine Estimated Creat Clear Estimated GFR Est GFR ( Amer) Glucose POC Glucose 334 H* 330 H* > 600 H* Calcium Phosphorus Magnesium Total Bilirubin AST ALT Alkaline Phosphatase Total Protein Albumin Globulin Albumin/Globulin Ratio Acetone Level 06/29/19 06/29/19 06/29/19 23:07 21:56 21:12 WBC RBC Hgb Hct MCV MCH MCHC RDW Plt Count MPV Neut % (Auto) Lymph % (Auto) [place] % (Auto) Eos % (Auto) Baso % (Auto) Neut # (Auto) Lymph # (Auto) [place]aines # (Auto) Eos # (Auto) Baso # (Auto) Sodium Potassium Chloride Carbon Dioxide Anion Gap BUN Creatinine Estimated Creat Clear Estimated GFR Est GFR ( Amer) Glucose POC Glucose > 600 H* > 600 H* > 600 H* Calcium Phosphorus Magnesium Total Bilirubin AST ALT Alkaline Phosphatase Total Protein Albumin Globulin Albumin/Globulin Ratio Acetone Level 06/29/19 21:10 WBC RBC Hgb Hct MCV MCH MCHC RDW Plt Count MPV Neut % (Auto) Lymph % (Auto) [place] % (Auto) Eos % (Auto) Baso % (Auto) Neut # (Auto) Lymph # (Auto) [place]aines # (Auto) Eos # (Auto) Baso # (Auto) Sodium Potassium Chloride Carbon Dioxide Anion Gap BUN Creatinine Estimated Creat Clear Estimated GFR Est GFR ( Amer) Glucose POC Glucose > 600 H* Calcium Phosphorus Magnesium Total Bilirubin AST ALT Alkaline Phosphatase Total Protein Albumin Globulin Albumin/Globulin Ratio Acetone Level Preliminary micro results at discharge 06/29/19 18:39 Urine Culture - Preliminary Urine,Catheterized DS: Diagnosis - Discharge Diagnosis (1) Acute on chronic renal failure Status: Resolved Problem details: Improvement with fluid resuscitation, suspect due to dehydration. Will need repeat lab work when follows up in clinic later this week. (2) DKA, type 1 Status: Acute (3) Hyperkalemia Status: Resolved (4) Medically noncompliant Status: Chronic (5) UTI (urinary tract infection) Status: Acute Discharge Plan - Patient Discharge Instructions ACTIVITY: Continue current activity DIET: continue same diet Patient Instructions: Urinary Tract Infection, DI for Urinary Tract Infection (UTI), DI for Hyperkalemia, Diabetic Ketoacidosis, DI for Diabetic Ketoacidosis, Hyperkalemia - Follow up Plan Follow up with: Lobo Baltazar MD [Staff Physician] - 07/04/19 Deven Mcginnis MD [Staff Physician] - 07/04/19 Disposition: Home, Self-Assisted Medications: Home Medications Medication Instructions Recorded Confirmed Type Albuterol Sulfate [Proair Hfa 2 puffs IH Q4HP PRN #1 inh 09/15/18 06/29/19 Rx 90mcg/puff Inh] Gabapentin [Neurontin 800mg Tab] 800 mg PO QID 11/08/18 06/29/19 History Carvedilol [Carvedilol 6.25mg Tab] 12.5 mg PO BID #60 tablet 02/17/19 06/29/19 Rx Insulin Aspart [Novolog] 0 unit SQ DAILY 03/15/19 06/29/19 History Insulin Glargine,Hum.rec.anlog 45 unit SQ HS 30 Days #3 insuln.pen 03/16/19 06/29/19 Rx [Insulin Glargine 100 Units/mL 3mL flexpen] levoFLOXacin [Levaquin 500mg 500 mg PO DAILY #7 tab 07/01/19 Rx tab] Prescriptions/Medication Reconciliation: New levoFLOXacin [Levaquin 500mg tab] 500 mg PO DAILY #7 tab Continued Albuterol Sulfate [Proair Hfa 90mcg/puff Inh] 2 puffs IH Q4HP PRN #1 inh PRN Reason: Shortness Of Breath Or Wheezing Gabapentin [Neurontin 800mg Tab] 800 mg PO QID Carvedilol [Carvedilol 6.25mg Tab] 12.5 mg PO BID #60 tablet Insulin Aspart [Novolog] 0 unit SQ DAILY Insulin Glargine,Hum.rec.anlog [Insulin Glargine 100 Units/mL 3mL flexpen] 45 unit SQ HS 30 Days #3 insuln.pen - Problem Reconciliation Problems Reviewed?: Yes
--- NOTE | 2019-07-01 09:44 | Electrocardiograph Report ---
APPROVED REPORT Exam: Resting ECG HR:133 bpm ECG Measurements Heart Rate 133 AXES ID 138 P 0 QRSd 82 QRS 59 QT 308 T43 QTc 458 <Conclusion> Sinus tachycardia Otherwise normal ECG Electronically signed by : Sid Grossman, 07/01/2019 09:44:21
== END 2019-07-01 10:37 | disposition home or self-care (01) | DRG 638 ==
LOC: ER 18:33 → 2ND 20:36
PROVIDERS: ADMIT Internal Medicine Adolescent Medicine; ATTEND Internal Medicine Adolescent Medicine
CPT/HCPCS: J1956

== ENCOUNTER 2019-07-26 19:57 | Inpatient (IN) ==
[2019-07-26 20:14] LABS: ABG Base Excess -29.8 mmol/L (-2.4-2.3); ABG HCO3 2.2 mmhg (22.0-26.0); ABG Oxygen Saturation 97 % (90-100); ABG PO2 122.6 mmhg (80-100); ABG TCO2 2.5 mmhg (23-27)
[2019-07-26 20:15] LABS: Allen's Test Patient Unable; Oxygen room air %
[2019-07-26 20:16] LABS: ABG PH 6.96 mmol/L (7.35-7.45)
[2019-07-26 20:22] LABS: Microscopic, Urine URINE MICROSCOPIC (MICROSCOPIC)
[2019-07-26 20:27] LABS: Basophils # 0.2 K/mm3 (0-0.2); Basophils % 0.7 % (0.1-2.0); Eosinophils # 0.2 K/mm3 (0.0-0.4); Eosinophils % 0.6 % (0.1-12.0); Hemoglobin 12.1 g/dL (14.1-18.0); Lymphocytes # 3.3 K/mm3 (0.7-4.5); Lymphocytes % 11.8 % (10-50); Mean Corpuscular HGB Conc 26.3 g/dL (31.8-35.4); Mean Corpuscular Volume 109.4 fl (80-94); Mean Platelet Volume 10.3 fl (7.4-10.4); Monocytes # 1.1 K/mm3 (0.1-1.0); Monocytes % 3.9 % (1.7-9.3); Neutrophils % 82.9 % (37.0-80.0); Platelet Count 601 K/mm3 (142-424); Red Cell Distribution Width 13.1 % (11.5-17.5); White Blood Count 27.8 K/mm3 (4.8-10.8)
--- NOTE | 2019-07-26 20:28 | Emergency Department Note ---
ED Disposition Clinical Impression: MALCOM (acute kidney injury), IDDM (insulin dependent diabetes mellitus), Hyperkalemia Sepsis Qualifiers: Sepsis type: sepsis due to unspecified organism Sepsis acute organ dysfunction status: with acute organ dysfunction Severe sepsis acute organ dysfunction type: acute renal failure Acute renal failure type: unspecified Severe sepsis shock status: without septic shock Qualified Code(s): A41.9 - Sepsis, unspecified organism; R65.20 - Severe sepsis without septic shock; N17.9 - Acute kidney failure, unspecified UTI (urinary tract infection) Qualifiers: Urinary tract infection type: site unspecified Hematuria presence: without hematuria Qualified Code(s): N39.0 - Urinary tract infection, site not specified Disposition: Admitted As Inpatient Condition on Discharge: Critical Instructions: DI for Hyperglycemia -- Adult Referrals: Provider,Referral, [Referring] - - Critical Care Critical Care Time: Yes Attestation: On 07/26/19, the high probability of a clinically significant, sudden or life threatening deterioration of the following system(s) required my full and direct attention, intervention and personal management. The time I documented below is in addition to time spent performing reported procedures but includes the following listed in this critical care notation. Total Critical Care Time: 90 Vital system(s) involved:: Metabolic Failure My critical care processes included: Assessment & monitoring of V/S, Initial and Re-exams, Data Review/Interpretation, Coordinating Care, Documentation Medical Decision Making - Medical Records Medical records reviewed: Yes: I reviewed the patient's medical records. - Michael Inquiry Pt receiving controlled substance: No Vital Signs: 07/26/19 20:00 07/26/19 21:16 Temperature 96.9 F L Temperature Source Rectal Pulse Rate [Right Brachial] 132 H 129 H Respiratory Rate 46 H 40 H Blood Pressure [Right Arm] 155/79 H 155/68 H Blood Pressure Mean [Right Arm] 104 97 Blood Pressure Source [Right Arm] Automatic Cuff Automatic Cuff Blood Pressure Position [Right Arm] Sitting Sitting 02 Sat by Pulse Oximetry 100 87 L Oxygen Delivery Method Room Air Room Air - Lab Data Lab results reviewed: Yes: I reviewed the patient's lab results. Lab Results 07/26/19 20:02: Urine Color Yellow, Urine Appearance Cloudy, Urine pH 5.5, Ur Specific [place] 1.015, Urine Protein 2+, Urine Glucose (UA) 3+, Urine Ketones 2+, Urine Blood 2+, Urine Nitrate Negative, Urine Bilirubin Negative, Urine Urobilinogen 0.2, Ur Leukocyte Esterase 2+ A, Urine WBC Tntc, Ur Squamous Epith Cells Occasional, Urine Bacteria Trace 07/26/19 20:02: WBC 27.8 H*, RBC 4.20 L, Hgb 12.1 L, Hct 46.0, MCV 109.4 H, MCH 28.8, MCHC 26.3 L, RDW 13.1, Plt Count 601 H, MPV 10.3, Neut % (Auto) 82.9 H, Lymph % (Auto) 11.8, [place] % (Auto) 3.9, Eos % (Auto) 0.6, Baso % (Auto) 0.7, Neut # (Auto) 23.0 H, Lymph # (Auto) 3.3, [place] # (Auto) 1.1 H, Eos # (Auto) 0.2, Baso # (Auto) 0.2 07/26/19 20:02: Sodium 129 L, Potassium 7.0 H*, Chloride 86 L, Carbon Dioxide 5 L*, Anion Gap 45.0 H, BUN 64 H, Creatinine 4.17 H, Estimated Creat Clear 22, Estimated GFR 16 L*, Est GFR ( Amer) 20 L, Glucose 1311 H*, Calcium 9.3, Total Bilirubin 0.6, AST 20, ALT 19, Alkaline Phosphatase 237 H, Total Protein 7.5 D, Albumin 3.0 L, Globulin 4.5 H, Albumin/Globulin Ratio 0.7 L, Amylase 28, Lipase 88 07/26/19 20:02: Urine Opiates Screen Negative, Urine Methadone Screen Negative, Ur Barbituates Screen Negative, Ur Phencyclidine Scrn Negative, Ur Amphetamines Screen Negative, U Benzodiazepines Scrn Negative, Urine Cocaine Screen Negative, U Marijuana (THC) Screen Negative 07/26/19 20:09: Specimen Source Right radial, O2 % room air, ABG pH 6.96 L*, ABG pCO2 10.0 L, ABG pO2 122.6 H, ABG HCO3 2.2 L, ABG Total CO2 2.5 L, ABG O2 Saturation 97, ABG Base Excess -29.8 L, [place] Test Patient unable 07/26/19 20:40: Lactate 7.5 H Result diagrams: 07/26/19 20:02 07/26/19 20:02 Orders (Tests/Meds): ED MEDICATIONS Generic Name Dose Route Start Last Admin Trade Name Freq PRN Reason Stop Dose Admin Sodium Chloride 2,000 mls @ 999 mls/hr 07/26/19 20:15 07/26/19 20:35 Sod Chlor 0.9% 1000ml Bag IV 07/26/19 22:15 999 mls/hr .Q2H1M CASTILLO Administration Insulin Human Regular 100 unit 101 mls @ 5.05 mls/hr 07/26/19 21:00 07/26/19 20:52 / Sodium Chloride IV 08/25/19 20:59 5.05 mls/hr .Q20H CASTILLO Administration Protocol 5 UNIT/HR Ertapenem 1 gm/ Sodium 50 mls @ 100 mls/hr 07/26/19 21:30 Chloride IV 08/09/19 21:29 Q24H CASTILLO Protocol Discontinued Medications Generic Name Dose Route Start Last Admin Trade Name Freq PRN Reason Stop Dose Admin Insulin Human Regular 5 unit 07/26/19 20:48 07/26/19 20:50 Humulin R Insulin 100 Units/Ml 10ml Vial IVP 07/26/19 20:49 5 unit ONCE ONE Administration Sodium Bicarbonate 50 meq 07/26/19 20:48 07/26/19 20:50 Sodium Bicarbonate 8.4% 50ml Syringe IV 07/26/19 20:49 50 meq ONCE ONE Administration ORDERS Category Date Time Status XR chest portable Stat Exams 07/26/19 20:09 Taken Complete Blood Count Auto Diff Stat Lab 07/26/19 20:02 Results Urinalysis and Microscopic Stat Lab 07/26/19 20:02 Results Urine Culture Stat Micro 07/26/19 20:02 Received - Radiology Data #1 Image(s): Chest Image Reviewed: Yes I reviewed the patient's radiology image Preliminary Findings: Normal/NAD - ECG Data Tracing #1 Arrhythmias present: sinus tach Ischemic changes: non-specific ST-T wave changes - Physician Consults Physician Consulted: cheng Reason -: Admission General Adult HPI - General Chief complaint: Hyper/Hypoglycemia Stated complaint: DKA Time Seen by Provider: 07/26/19 20:05 Mode of Arrival: EMS Source of Information: EMS, Medical Record Limitations: Altered Mental Status Description of Symptoms (Recalled from ER Triage Doc. by RN): PT ARRIVES VIA EMS FOR COMPLAINTS OF HYPERGLYCEMIA. RAPID RESPIRATORY RATE, NOTABLE INCONTINENT URINE IN A DIAPER, AND NOTABE "SWEET" SMELL PRESENT. FSBS READS "HI". - History of Present Illness HPI narrative: pt with long hx of uncontrolled iddm and dka who presented per ems - no other hx available at this time Onset (ago): unknown Severity: severe, similar to prior episodes - Related Data Home Medications Medication Instructions Recorded Confirmed Gabapentin [Neurontin 800mg Tab] 800 mg PO QID 11/08/18 07/26/19 Insulin Aspart [Novolog] 0 unit SQ DAILY 03/15/19 07/26/19 Etodolac [Lodine 400mg Tab] 400 mg PO BID 07/26/19 07/26/19 Previous Rx's Medication Instructions Recorded Albuterol Sulfate [Proair Hfa 2 puffs IH Q4HP PRN #1 inh 09/15/18 90mcg/puff Inh] Carvedilol [Carvedilol 6.25mg Tab] 12.5 mg PO BID #60 tab 02/17/19 Insulin Glargine,Hum.rec.anlog 45 unit SQ HS 30 Days #3 insuln.pen 03/16/19 [Insulin Glargine 100 Units/mL 3mL flexpen] Allergies Allergy/AdvReac Type Severity Reaction Status Date / Time Penicillins [PENICILLINS] Allergy Severe I-HIVES Verified 07/04/19 13:42 [facility] History - Hepatitis A Screen Drug use history?: No High risk sexual behaviors?: No History of sexually transmitted infection?: No Currently employed?: No Childcare worker?: No Do you have indoor plumbing?: Yes Do you have electricity?: Yes Attestation statement:: This patient has been screened for Hepatitis A risk factors. I have reviewed the patient's past medical history: Yes Medical History: Reports:: Diabetes Mellitus Type 1, Hyperlipidemia, Hypertension, Renal Disease, Renal Insufficiency, Urinary Tract Infection Denies:: Cancer, Diabetes Mellitus Type 2, MRSA Other Medical History: Reports: Anemia, Liver Disease, Other Comment: Bladder dysfunction with chronic UTI Laterality Cases: Bilateral: Myringotomy (Ear Tubes), Tonsillectomy Other Surgeries: Yes: No Previous Surgery (Tonsillectomy), Other Amputation: No Fractures: No - Social History Smoking Status: Never smoker Tobacco Type: smokeless tobacco # Packs/Day (cigarettes): 1 Alcohol Intake: never Alcohol Intake Frequency:: holidays/special occasions only Substance Use Type: marijuana, opiates, painkillers Occupational Status: unemployed Housing: apartment Household Members: significant other, family, children Family Hx:: Anemia, Asthma, Cancer, Coronary Artery Disease, Diabetes, Heart Attack, Hyperlipidemia, Hypertension, Kidney Disease, Stroke, Tuberculosis ROS Obtained: Yes unobtainable due to mental condition Physical Exam - General General appearance: obtunded - Head Head exam: normocephalic - Eye Eye exam: Present: PERRL, EOMI. Absent: scleral icterus - ENT ENT exam: Present: mucous membranes dry - Neck Neck exam: Present: trachea midline - Respiratory Respiratory exam: Present: normal lung sounds bilaterally. Absent: respiratory distress - Cardiovascular Cardiovascular exam: Present: tachycardia, systolic murmur. Absent: rubs - Abdominal Exam Abdominal exam: Present: soft - Extremities Exam Extremities exam: Absent: joint swelling - Neurological Exam Neurological exam: Present: other (obtunded w/o posturing ) - Skin Skin exam: Absent: rash
[2019-07-26 20:49] LABS: Bilirubin,Urine Negative (Negative); Blood, Urine 2+ (Negative); Color,Urine YELLOW (Yellow); Glucose,Urine (UA) 3+ (Negative); Ketones,Urine 2+ (Negative); Leukocyte Esterase,Urine 2+ (Negative); PH,Urine 5.5 (5.0-8.5); Protein,Urine 2+ (Negative); Specific Gravity, Urine 1.015 (1.005-1.030); Urobilinogen,Urine 0.2 EU/dl (0.2)
[2019-07-26 20:51] LABS: Appearance,Urine Cloudy (Clear)
[2019-07-26 20:55] LABS: Albumin/Globulin Ratio 0.7 (1.1-1.8); Bilirubin,Total 0.6 mg/dL (0.2-1.0); Calcium 9.3 mg/dL (8.5-10.1); Globulin 4.5 gm/dl (1.3-3.2); Total Protein,Serum 7.5 gm/dL (6.4-8.2)
[2019-07-26 20:56] LABS: Amphetamine/Metha Screen,Urine Negative ng/mL (<1000); Barbiturates Screen,Urine Negative ng/mL (<200); Benzodiazepines Screen,Urine Negative ng/mL (<200); Cannabinoid Screen,Urine Negative ng/mL (<50); Cocaine Screen,Urine Negative ng/mL (<300); Methadone Screen,Urine Negative ng/mL (<300); Opiate Screen,Urine Negative ng/mL (<300); Phencyclidine Screen,Urine Negative ng/mL (<25)
[2019-07-26 21:05] LABS: Bacteria,Urine Trace /lpf; Squamous Epithelial Cell,Urine Occasional #/hpf (0-5); WBC,Urine TNTC #/hpf (0-3)
[2019-07-26 21:37] LABS: Eosinophils % 1 % (0-3); Lymphocytes % 12 % (10-50); Monocytes % 4 % (2-9); Neutrophils % 83 % (42-76); Total Cells Counted 100
[2019-07-26 21:38] LABS: Hypochromasia 1+; Macrocytosis 2+
[2019-07-27 00:20] LABS: Anion Gap 39.3 mEq/L (5-15)
[2019-07-27 01:42] LABS: Calcium 7.7 mg/dL (8.5-10.1)
[2019-07-27 04:42] LABS: Anion Gap 20.7 mEq/L (5-15); Calcium 8.1 mg/dL (8.5-10.1)
[2019-07-27 06:40] LABS: Anion Gap 16.7 mEq/L (5-15); Blood Urea Nitrogen 53 mg/dL (7-18); Calcium 8.1 mg/dL (8.5-10.1); Carbon Dioxide 23 mmol/L (21.0-32.0); Chloride 111 mmol/L (98-107); Glucose 368 mg/dL (74-106); Sodium 147 mmol/L (136-145)
[2019-07-27 06:47] LABS: Basophils % 0.2 % (0.1-2.0); Eosinophils % 0.2 % (0.1-12.0); Hematocrit 30.1 % (42.0-52.0); Lymphocytes # 2.3 K/mm3 (0.7-4.5); Lymphocytes % 14.2 % (10-50); Mean Corpuscular HGB Conc 31.6 g/dL (31.8-35.4); Mean Corpuscular Volume 88.7 fl (80-94); Mean Platelet Volume 8.4 fl (7.4-10.4); Monocytes % 6.1 % (1.7-9.3); Neutrophils # 12.6 K/mm3 (1.8-7.8); Neutrophils % 79.3 % (37.0-80.0); Platelet Count 393 K/mm3 (142-424); Red Cell Distribution Width 13.4 % (11.5-17.5); White Blood Count 15.8 K/mm3 (4.8-10.8)
[2019-07-27 06:49] LABS: Hemoglobin 9.5 g/dL (14.1-18.0)
[2019-07-27 06:51] LABS: Acetone, Serum (Rapid) Small (None Detect)
[2019-07-27 07:57] LABS: Lymphocytes % 16 % (10-50); Monocytes % 5 % (2-9); Neutrophils % 79 % (42-76); RBC Morphology Normal; Total Cells Counted 100
[2019-07-27 08:23] LABS: Anion Gap 14.6 mEq/L (5-15); Calcium 7.9 mg/dL (8.5-10.1)
--- NOTE | 2019-07-27 08:30 | History & Physical Report ---
*Admission Date: 07/27/19 <Pamela Cedillo 07/27/19 08:30> *Chief complaint: AMS, hyperglycemia <Pamela Cedillo 07/27/19 08:30> *History of present illness: Mr. Huber is a 38-year-old male with a long history of poorly controlled type 1 diabetes. According to nursing staff, he has had frequent admissions for diabetic ketoacidosis as well as chronic urinary tract infections. The patient presented to the emergency room last night via EMS with complaints of hyperglycemia, rapid respiratory rate, and urinary incontinence. His glucose was found to be 1465, his sodium was 125, his potassium was 7.7, he was in renal failure, and he had a pH of 6.96 with a PCO2 of 10 and a PO2 of 122.6. It appeared he had a urinary tract infection as well. He was admitted and started on insulin as well as ertapenem for a UTI. His glucose is now down to 243 and his electrolytes have improved. His renal function is improved slightly. The patient is a poor historian and very lethargic. He states he has been seeing Dr. Chong for his diabetes and just saw him a few days ago. He also states he has been taking his insulin. According to a recent discharge summary from Dr. Grossman, the patient has been discharged from their practice due to noncompliance. Nursing staff states he has not filled his insulin since March. <Pamela Cedillo 07/27/19 08:44> [facility] History I have reviewed the patient's past medical history: Yes <Pamela Cedillo 07/27/19 08:44> Medical History: Reports:: Diabetes Mellitus Type 1, Hyperlipidemia, Hypertension, Renal Disease, Renal Insufficiency, Urinary Tract Infection Denies:: Cancer, Diabetes Mellitus Type 2, MRSA <Pamela Cedillo 07/27/19 08:30> *Have you ever received a pneumonia vaccine?: Yes <Pamela Cedillo 07/27/19 08:30> *Have you received a flu vaccine this season?: No <Pamela Cedillo 07/27/19 08:30> Other Medical History: Reports: Anemia, Liver Disease, Other <Pamela Cedillo 07/27/19 08:30> Laterality Cases: Bilateral: Myringotomy (Ear Tubes), Tonsillectomy <Pamela Cedillo 07/27/19 08:30> Other Surgeries: Yes: No Previous Surgery (Tonsillectomy), Other <Pamela Cedillo 07/27/19 08:30> Amputation: No <Pamela Cedillo 07/27/19 08:30> Fractures: No <Pamela Cedillo 07/27/19 08:30> - *Social History Educational Level: Attended Grade School <Pamela Cedillo 07/27/19 08:30> Smoking Status: Current some day smoker <Pamela Cedillo 07/27/19 08:30> Tobacco Type: e-cigarettes, smokeless tobacco <Pamela Cedillo 07/27/19 08:30> # Packs/Day (cigarettes): 1 <Pamela Cedillo 07/27/19 08:30> Alcohol Intake: current <Pamela Cedillo 07/27/19 08:30> Alcohol Intake Frequency:: holidays/special occasions only <Pamela Cedillo 07/27/19 08:30> Substance Use Type: marijuana, opiates <Pamela Cedillo 07/27/19 08:30> Last Used Substance: unknown <Pamela Cedillo 07/27/19 08:30> *Occupational Status:: unemployed <Pamela Cedillo 07/27/19 08:30> Housing: apartment <Pamela Cedillo 07/27/19 08:30> Household Members: significant other, family, children <Pamela Cedillo 07/27/19 08:30> *Travel in the last 8 weeks: None <Pamela Cedillo 07/27/19 08:30> Family Hx:: Anemia, Bleeding Disorder, Cancer, Coronary Artery Disease, Diabetes, Heart Attack, Hyperlipidemia, Hypertension, Kidney Disease, Stroke, Tuberculosis <Pamela Cedillo 07/27/19 08:30> Review of Systems - Constitutional Reports body ache(s), Reports headache(s), Reports weakness <Pamela Cedillo 07/27/19 08:44> - Eyes Denies blurry vision, Denies double vision <Pamela Cedillo 07/27/19 08:44> - ENT Denies nasal congestion, Denies sore throat <Pamela Cedillo - 07/27/19 08:44> - *Cardiovascular Reports chest pain, Reports shortness of breath <Pamela Cedillo 07/27/19 08:44> - *Respiratory Reports shortness of breath, Denies cough <Pamela Cedillo - 07/27/19 08:44> - *Gastrointestinal Denies abdominal pain, Denies loose stools, Denies nausea, Denies vomiting <Pamela Cedillo 07/27/19 08:44> - *Genitourinary Reports urinary incontinence <Pamela Cedillo 07/27/19 08:44> - *Musculoskeletal Reports body aches <Pamela Cedillo 07/27/19 08:44> - *Neurologic Reports headache(s), Reports dizziness, Reports weakness <Pamela Cedillo 07/27/19 08:44> Meds Home Medications Medication Instructions Recorded Confirmed Type Albuterol Sulfate [Proair Hfa 2 puffs IH Q4HP PRN #1 inh 09/15/18 07/26/19 Rx 90mcg/puff Inh] Gabapentin [Neurontin 800mg Tab] 800 mg PO QID 11/08/18 07/26/19 History Carvedilol [Carvedilol 6.25mg Tab] 12.5 mg PO BID #60 tab 02/17/19 07/26/19 Rx Insulin Aspart [Novolog] 0 unit SQ DAILY 03/15/19 07/26/19 History Insulin Glargine,Hum.rec.anlog 45 unit SQ HS 30 Days #3 insuln.pen 03/16/19 07/26/19 Rx [Insulin Glargine 100 Units/mL 3mL flexpen] Etodolac [Lodine 400mg Tab] 400 mg PO BID 07/26/19 07/26/19 History <Ugo Durham - 07/27/19 08:48> Allergies Allergy/AdvReac Type Severity Reaction Status Date / Time Penicillins [PENICILLINS] Allergy Severe I-HIVES Verified 07/04/19 13:42 <Ugo Durham - 07/27/19 08:48> Exam Vital signs and Labs for Last 24 Hours: Temp Pulse Resp BP Pulse Ox 98.5 F 98 H 17 115/60 100 07/27/19 08:00 07/27/19 08:00 07/27/19 08:00 07/27/19 08:00 07/27/19 08:00 Laboratory Results - last 24 hr 07/26/19 20:02: Urine Color Yellow, Urine Appearance Cloudy, Urine pH 5.5, Ur Specific [place] 1.015, Urine Protein 2+, Urine Glucose (UA) 3+, Urine Ketones 2+, Urine Blood 2+, Urine Nitrate Negative, Urine Bilirubin Negative, Urine Urobilinogen 0.2, Ur Leukocyte Esterase 2+ A, Urine RBC Not Reportable, Urine WBC Tntc, Ur Squamous Epith Cells Occasional, Urine Bacteria Trace 07/26/19 20:02: WBC 27.8 H*, RBC 4.20 L, Hgb 12.1 L, Hct 46.0, MCV 109.4 H, MCH 28.8, MCHC 26.3 L, RDW 13.1, Plt Count 601 H, MPV 10.3, Neut % (Auto) 82.9 H, Lymph % (Auto) 11.8, [place] % (Auto) 3.9, Eos % (Auto) 0.6, Baso % (Auto) 0.7, Neut # (Auto) 23.0 H, Lymph # (Auto) 3.3, [place] # (Auto) 1.1 H, Eos # (Auto) 0.2, Baso # (Auto) 0.2, Total Counted 100, Neutrophils % (Manual) 83 H, Lymphocytes % (Manual) 12, Monocytes % (Manual) 4, Eosinophils % (Manual) 1, Platelet Estimate Moderate increase, Hypochromasia 1+, Macrocytosis 2+ 07/26/19 20:02: Sodium 129 L, Potassium 7.0 H*, Chloride 86 L, Carbon Dioxide 5 L*, Anion Gap 45.0 H, BUN 64 H, Creatinine 4.17 H, Estimated Creat Clear 22, Estimated GFR 16 L*, Est GFR ( Amer) 20 L, Glucose 1311 H*, Calcium 9.3, Total Bilirubin 0.6, AST 20, ALT 19, Alkaline Phosphatase 237 H, Total Protein 7.5 D, Albumin 3.0 L, Globulin 4.5 H, Albumin/Globulin Ratio 0.7 L, Amylase 28, Lipase 88 07/26/19 20:02: Urine Opiates Screen Negative, Urine Methadone Screen Negative, Ur Barbituates Screen Negative, Ur Phencyclidine Scrn Negative, Ur Amphetamines Screen Negative, U Benzodiazepines Scrn Negative, Urine Cocaine Screen Negative, U Marijuana (THC) Screen Negative 07/26/19 20:09: Specimen Source Right radial, O2 % room air, ABG pH 6.96 L*, ABG pCO2 10.0 L, ABG pO2 122.6 H, ABG HCO3 2.2 L, ABG Total CO2 2.5 L, ABG O2 Saturation 97, ABG Base Excess -29.8 L, [place] Test Patient unable 07/26/19 20:40: Lactate 7.5 H 07/26/19 23:44: Random Glucose 1064 H* 07/27/19 00:00: Sodium 136, Potassium 5.3 H D, Chloride 97 L, Carbon Dioxide 5 L*, Anion Gap 39.3 H, BUN 60 H, Creatinine 4.01 H, Estimated Creat Clear 23, Estimated GFR 17 L*, Est GFR ( Amer) 21 L, Glucose 1064 H*, Calcium 7.7 L D 07/27/19 01:22: Troponin I 0.35 H 07/27/19 01:22: Lactate 6.0 H 07/27/19 01:22: Random Glucose 876 H* 07/27/19 03:18: Random Glucose 652 H* D 07/27/19 03:18: Lactate 4.9 H 07/27/19 04:10: Troponin I 0.39 H 07/27/19 04:10: Sodium 144, Potassium 3.7 D, Chloride 107, Carbon Dioxide 20 L D, Anion Gap 20.7 H, BUN 55 H, Creatinine 3.83 H, Estimated Creat Clear 24, Estimated GFR 18 L*, Est GFR ( Amer) 22 L, Glucose 541 H* D, Calcium 8.1 L 07/27/19 05:00: POC Glucose 448 H* 07/27/19 06:06: POC Glucose 365 H* 07/27/19 06:20: WBC 15.8 H D, RBC 3.40 L, Hgb 9.5 L D, Hct 30.1 L, MCV 88.7, MCH 28.0, MCHC 31.6 L, RDW 13.4, Plt Count 393 D, MPV 8.4, Neut % (Auto) 79.3, Lymph % (Auto) 14.2, [place] % (Auto) 6.1, Eos % (Auto) 0.2, Baso % (Auto) 0.2, Neut # (Auto) 12.6 H, Lymph # (Auto) 2.3, [place] # (Auto) 1.0, Eos # (Auto) 0.0, Baso # (Auto) 0.0, Total Counted 100, Neutrophils % (Manual) 79 H, Lymphocytes % (Manual) 16, Monocytes % (Manual) 5, Platelet Estimate Normal, RBC Morphology Normal 07/27/19 06:20: Sodium 147 H, Potassium 3.7, Chloride 111 H, Carbon Dioxide 23, Anion Gap 16.7 H, BUN 53 H, Creatinine 3.56 H, Estimated Creat Clear 26, Estimated GFR 20 L, Est GFR ( Amer) 24 L, Glucose 368 H D, Calcium 8.1 L, Magnesium 2.0, Acetone Level Small 07/27/19 07:12: POC Glucose 306 H* 07/27/19 08:02: Sodium 149 H, Potassium 3.6, Chloride 115 H, Carbon Dioxide 23, Anion Gap 14.6, BUN 52 H, Creatinine 3.38 H, Estimated Creat Clear 27, Estimated GFR 21 L, Est GFR ( Amer) 25 L, Glucose 255 H D, Calcium 7.9 L 07/27/19 08:15: POC Glucose 243 H <Ugo Durham - 07/27/19 08:48> Temp Pulse Resp BP Pulse Ox 98.0 F 102 H 19 107/68 L 100 07/27/19 04:00 07/27/19 06:00 07/27/19 06:00 07/27/19 06:00 07/27/19 06:00 Laboratory Results - last 24 hr 07/26/19 20:02: Urine Color Yellow, Urine Appearance Cloudy, Urine pH 5.5, Ur Specific [place] 1.015, Urine Protein 2+, Urine Glucose (UA) 3+, Urine Ketones 2+, Urine Blood 2+, Urine Nitrate Negative, Urine Bilirubin Negative, Urine Urobilinogen 0.2, Ur Leukocyte Esterase 2+ A, Urine RBC Not Reportable, Urine WBC Tntc, Ur Squamous Epith Cells Occasional, Urine Bacteria Trace 07/26/19 20:02: WBC 27.8 H*, RBC 4.20 L, Hgb 12.1 L, Hct 46.0, MCV 109.4 H, MCH 28.8, MCHC 26.3 L, RDW 13.1, Plt Count 601 H, MPV 10.3, Neut % (Auto) 82.9 H, Lymph % (Auto) 11.8, [place] % (Auto) 3.9, Eos % (Auto) 0.6, Baso % (Auto) 0.7, Neut # (Auto) 23.0 H, Lymph # (Auto) 3.3, [place] # (Auto) 1.1 H, Eos # (Auto) 0.2, Baso # (Auto) 0.2, Total Counted 100, Neutrophils % (Manual) 83 H, Lymphocytes % (Manual) 12, Monocytes % (Manual) 4, Eosinophils % (Manual) 1, Platelet Estimate Moderate increase, Hypochromasia 1+, Macrocytosis 2+ 07/26/19 20:02: Sodium 129 L, Potassium 7.0 H*, Chloride 86 L, Carbon Dioxide 5 L*, Anion Gap 45.0 H, BUN 64 H, Creatinine 4.17 H, Estimated Creat Clear 22, Estimated GFR 16 L*, Est GFR ( Amer) 20 L, Glucose 1311 H*, Calcium 9.3, Total Bilirubin 0.6, AST 20, ALT 19, Alkaline Phosphatase 237 H, Total Protein 7.5 D, Albumin 3.0 L, Globulin 4.5 H, Albumin/Globulin Ratio 0.7 L, Amylase 28, Lipase 88 07/26/19 20:02: Urine Opiates Screen Negative, Urine Methadone Screen Negative, Ur Barbituates Screen Negative, Ur Phencyclidine Scrn Negative, Ur Amphetamines Screen Negative, U Benzodiazepines Scrn Negative, Urine Cocaine Screen Negative, U Marijuana (THC) Screen Negative 07/26/19 20:09: Specimen Source Right radial, O2 % room air, ABG pH 6.96 L*, ABG pCO2 10.0 L, ABG pO2 122.6 H, ABG HCO3 2.2 L, ABG Total CO2 2.5 L, ABG O2 Saturation 97, ABG Base Excess -29.8 L, [place] Test Patient unable 07/26/19 20:40: Lactate 7.5 H 07/26/19 23:44: Random Glucose 1064 H* 07/27/19 00:00: Sodium 136, Potassium 5.3 H D, Chloride 97 L, Carbon Dioxide 5 L*, Anion Gap 39.3 H, BUN 60 H, Creatinine 4.01 H, Estimated Creat Clear 23, Estimated GFR 17 L*, Est GFR ( Amer) 21 L, Glucose 1064 H*, Calcium 7.7 L D 07/27/19 01:22: Troponin I 0.35 H 07/27/19 01:22: Lactate 6.0 H 07/27/19 01:22: Random Glucose 876 H* 07/27/19 03:18: Random Glucose 652 H* D 07/27/19 03:18: Lactate 4.9 H 07/27/19 04:10: Troponin I 0.39 H 07/27/19 04:10: Sodium 144, Potassium 3.7 D, Chloride 107, Carbon Dioxide 20 L D, Anion Gap 20.7 H, BUN 55 H, Creatinine 3.83 H, Estimated Creat Clear 24, Estimated GFR 18 L*, Est GFR ( Amer) 22 L, Glucose 541 H* D, Calcium 8.1 L 07/27/19 05:00: POC Glucose 448 H* 07/27/19 06:06: POC Glucose 365 H* 07/27/19 06:20: WBC 15.8 H D, RBC 3.40 L, Hgb 9.5 L D, Hct 30.1 L, MCV 88.7, MCH 28.0, MCHC 31.6 L, RDW 13.4, Plt Count 393 D, MPV 8.4, Neut % (Auto) 79.3, Lymph % (Auto) 14.2, [place] % (Auto) 6.1, Eos % (Auto) 0.2, Baso % (Auto) 0.2, Neut # (Auto) 12.6 H, Lymph # (Auto) 2.3, [place] # (Auto) 1.0, Eos # (Auto) 0.0, Baso # (Auto) 0.0, Total Counted 100, Neutrophils % (Manual) 79 H, Lymphocytes % (Manual) 16, Monocytes % (Manual) 5, Platelet Estimate Normal, RBC Morphology Normal 07/27/19 06:20: Sodium 147 H, Potassium 3.7, Chloride 111 H, Carbon Dioxide 23, Anion Gap 16.7 H, BUN 53 H, Creatinine 3.56 H, Estimated Creat Clear 26, Estimated GFR 20 L, Est GFR ( Amer) 24 L, Glucose 368 H D, Calcium 8.1 L, Magnesium 2.0, Acetone Level Small 07/27/19 07:12: POC Glucose 306 H* 07/27/19 08:02: Sodium 149 H, Potassium 3.6, Chloride 115 H, Carbon Dioxide 23, Anion Gap 14.6, BUN 52 H, Creatinine 3.38 H, Estimated Creat Clear 27, Estimated GFR 21 L, Est GFR ( Amer) 25 L, Glucose 255 H D, Calcium 7.9 L 07/27/19 08:15: POC Glucose 243 H <Pamela Cedillo - 07/27/19 08:30> I & O for Last 24 hours: Intake & Output 07/24/19 07/25/19 07/26/19 07/27/19 23:59 23:59 23:59 23:59 Intake Total 4150 / 4150 1835 / 1835 Output Total 650 / 1250 2049 / 2049 Balance 3500 / 2900 -215 / -215 Weight 140 lb <Ugo Durham - 07/27/19 08:48> Intake & Output 07/24/19 07/25/19 07/26/19 07/27/19 11:59 11:59 11:59 11:59 Intake Total 5985 / 5985 Output Total 2550 / 2550 Balance 3435 / 3435 Weight 140 lb <Pamela Cedillo - 07/27/19 08:30> - Constitutional Comments: Lethargic, able to answer some questions but then falls asleep <NguyenPamela 07/27/19 08:44> - *Routine HEENT Exam Head: Present: normocephalic <NguyenPamela 07/27/19 08:44> Eye: Present: EOMI, PERRL <NguyenPamela 07/27/19 08:44> ENT: Present: mucous membranes dry <NguyenPamela 07/27/19 08:44> - *Routine Neck Exam Present: supple. Absent: lymphadenopathy <NguyenPamela 07/27/19 08:44> - *Routine Respiratory Exam Present: CTA bilaterally <NguyenPamela 07/27/19 08:44> - *Routine Cardiovascular Exam Present: RRR <Pamela Cedillo 07/27/19 08:44> - *Routine Abdominal Exam Present: soft, normoactive bowel sounds. Absent: tenderness <Pamela Cedillo 07/27/19 08:44> - *Routine Extremities Exam Absent: cyanosis, clubbing, edema <Pamela Cedillo 07/27/19 08:44> - *Routine Skin Exam Present: warm. Absent: rash <Pamela Cedillo 07/27/19 08:44> - *Routine Neurological Exam Present: altered mental status <Pamela Cedillo 07/27/19 08:44> H&P: Result - Impressions CXR - nothing acute <Pamela Cedillo 07/27/19 08:44> Assessment and Plan (1) DKA (diabetic ketoacidoses) Current visit: Yes Status: Acute Category: Medical Code(s): E11.10 - Type 2 diabetes mellitus with ketoacidosis without coma (2) MALCOM (acute kidney injury) Current visit: Yes Status: Acute Category: Medical Code(s): N17.9 - Acute kidney failure, unspecified (3) Hyperkalemia Current visit: Yes Status: Resolved Category: Medical Code(s): E87.5 - Hyperkalemia (4) IDDM (insulin dependent diabetes mellitus) Problem details: Poorly controlled. Restart regimen as per previously discussed and plan and med rec.will need close follow-up later this week in clinic where adjustments will be made at that time.. Current visit: Yes Status: Chronic Category: Medical Code(s): E11.9 - Type 2 diabetes mellitus without complications; Z79.4 - termite treater helper (current) use of insulin (5) UTI (urinary tract infection) Current visit: Yes Status: Acute Qualifiers: Urinary tract infection type: site unspecified Hematuria presence: without hematuria Qualified Code(s): N39.0 - Urinary tract infection, site not specified Category: Medical Code(s): N39.0 - Urinary tract infection, site not specified (6) Change in mental status Current visit: No Status: Acute Category: Medical Code(s): R41.82 - Altered mental status, unspecified (7) Chronic renal failure Current visit: No Status: Chronic Category: Medical Code(s): N18.9 - Chronic kidney disease, unspecified (8) Urinary retention Current visit: No Status: Chronic Category: Medical Code(s): R33.9 - Retention of urine, unspecified (9) Medically noncompliant Current visit: No Status: Chronic Category: Medical Code(s): Z91.19 - Patient's noncompliance with other medical treatment and regimen (10) Recurrent UTI Current visit: No Status: Chronic Category: Medical Code(s): N39.0 - Urinary tract infection, site not specified (11) Urinary bladder disorder Current visit: No Status: Chronic Category: Medical Code(s): N32.9 - Bladder disorder, unspecified (12) Non compliance with medical treatment Current visit: No Status: Acute Category: Medical Code(s): Z91.19 - Patient's noncompliance with other medical treatment and regimen <Ugo Durham - 07/27/19 08:48> (1) DKA (diabetic ketoacidoses) Current visit: Yes Status: Acute Category: Medical Code(s): E11.10 - Type 2 diabetes mellitus with ketoacidosis without coma (2) MALCOM (acute kidney injury) Current visit: Yes Status: Acute Category: Medical Code(s): N17.9 - Acute kidney failure, unspecified (3) Hyperkalemia Current visit: Yes Status: Resolved Category: Medical Code(s): E87.5 - Hyperkalemia (4) IDDM (insulin dependent diabetes mellitus) Problem details: Poorly controlled. Restart regimen as per previously discussed and plan and med rec.will need close follow-up later this week in clinic where adjustments will be made at that time.. Current visit: Yes Status: Chronic Category: Medical Code(s): E11.9 - Type 2 diabetes mellitus without complications; Z79.4 - halfway (current) use of insulin (5) UTI (urinary tract infection) Current visit: Yes Status: Acute Qualifiers: Urinary tract infection type: site unspecified Hematuria presence: without hematuria Qualified Code(s): N39.0 - Urinary tract infection, site not specified Category: Medical Code(s): N39.0 - Urinary tract infection, site not specified (6) Change in mental status Current visit: No Status: Acute Category: Medical Code(s): R41.82 - Altered mental status, unspecified (7) Chronic renal failure Current visit: No Status: Chronic Category: Medical Code(s): N18.9 - Chronic kidney disease, unspecified (8) Urinary retention Current visit: No Status: Chronic Category: Medical Code(s): R33.9 - Retention of urine, unspecified (9) Medically noncompliant Current visit: No Status: Chronic Category: Medical Code(s): Z91.19 - Patient's noncompliance with other medical treatment and regimen (10) Recurrent UTI Current visit: No Status: Chronic Category: Medical Code(s): N39.0 - Urinary tract infection, site not specified (11) Urinary bladder disorder Current visit: No Status: Chronic Category: Medical Code(s): N32.9 - Bladder disorder, unspecified <Pamela Cedillo - 07/27/19 08:30> - Assessment and plan all Dx Assessment and Plan for all problems:: Saw patient, he was admitted with hyperglycemia and DKA overnight. 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 <Ugo Durham - 07/27/19 08:48> Patient's previous urine culture was growing yeast. He has been started on fluconazole and will be continued on antibiotics as well. He will also be continued on insulin. His glucose is improving. His fluids will be changed to normal saline with potassium. Will await urine and blood cultures. <Pamela Cedillo - 07/27/19 08:44>
--- NOTE | 2019-07-27 09:04 | Pharmacy Consult Notes ---
[facility] Pharmacy VTE Monitoring - Patient Demographics Admission date: 07/26/19 Report Date: 07/27/19 Time: 09:04 Allergies/Adverse Reactions: Patient Allergies Penicillins [PENICILLINS] Allergy (Severe, Verified 07/04/19 13:42) I-HIVES Height: 1.6 m Weight: 63.503 kg Patient Problems: Current Active Problems UTI (urinary tract infection) (Acute) IDDM (insulin dependent diabetes mellitus) (Chronic) Sepsis (Acute) MALCOM (acute kidney injury) (Acute) DKA (diabetic ketoacidoses) (Acute) - VTE Risk Labs: VTE Related Lab Results Hgb 9.5 g/dL (14.1-18.0) L D 07/27/19 06:20 Hct 30.1 % (42.0-52.0) L 07/27/19 06:20 Plt Count 393 K/mm3 (142-424) D 07/27/19 06:20 BUN 52 mg/dL (7-18) H 07/27/19 08:02 Creatinine 3.38 mg/dL (0.70-1.30) H 07/27/19 08:02 Estimated Creat Clear 27 mL/min (50-200) 07/27/19 08:02 VTE Risk Level: Low Risk - Prophylaxis VTE Prophylaxis Ordered?: Yes Types of VTE Prophylaxis: TEDS Knee High Location of Applied Device: Bilateral Lower Extremeties - VTE Diagnosis Confirmed Treatment or plan recommended: Continue Current Treatment
--- NOTE | 2019-07-27 12:14 | Electrocardiograph Report ---
APPROVED REPORT Exam: Resting ECG HR:139 bpm ECG Measurements Heart Rate 139 AXES WI 184 P QRSd 86 QRS -52 QT 288 T42 QTc 438 <Conclusion> Sinus tachycardia with premature atrial complexes Left axis deviation Abnormal ECG Electronically signed by : Sid Grossman, 07/27/2019 12:14:41
[2019-07-27 12:44] LABS: Anion Gap 14.8 mEq/L (5-15); Calcium 8.4 mg/dL (8.5-10.1)
[2019-07-28 06:48] LABS: Basophils % 0.3 % (0.1-2.0); Eosinophils # 0.3 K/mm3 (0.0-0.4); Eosinophils % 3.1 % (0.1-12.0); Hematocrit 32.1 % (42.0-52.0); Lymphocytes # 3.7 K/mm3 (0.7-4.5); Lymphocytes % 37.1 % (10-50); Mean Corpuscular HGB Conc 31.1 g/dL (31.8-35.4); Mean Corpuscular Volume 91.6 fl (80-94); Mean Platelet Volume 8.1 fl (7.4-10.4); Monocytes # 0.4 K/mm3 (0.1-1.0); Monocytes % 3.9 % (1.7-9.3); Neutrophils # 5.6 K/mm3 (1.8-7.8); Neutrophils % 55.6 % (37.0-80.0); Platelet Count 319 K/mm3 (142-424); Red Blood Count 3.51 M/mm3 (4.60-6.20); Red Cell Distribution Width 13.7 % (11.5-17.5)
[2019-07-28 06:58] LABS: Albumin Level 2.1 gm/dL (3.4-5.0); Albumin/Globulin Ratio 0.6 (1.1-1.8); Bilirubin,Total 0.2 mg/dL (0.2-1.0); Calcium 8.4 mg/dL (8.5-10.1); Globulin 3.5 gm/dl (1.3-3.2); Total Protein,Serum 5.6 gm/dL (6.4-8.2)
--- NOTE | 2019-07-28 10:32 | Progress Note ---
Internal Medicine - PN: Subj *Date: 07/28/19 *Time: 10:29 Interval history: Patient with no new complaints today, still feels tired, able to eat some now. Exam Vital signs and Labs for Last 24 Hours: Temp Pulse Resp BP Pulse Ox 98.6 F 74 18 140/96 H 99 07/28/19 08:00 07/28/19 08:00 07/28/19 08:00 07/28/19 08:00 07/28/19 08:00 Laboratory Results - last 24 hr 07/27/19 12:05: POC Glucose 174 H 07/27/19 12:18: Sodium 150 H, Potassium 3.8, Chloride 115 H, Carbon Dioxide 24, Anion Gap 14.8, BUN 49 H, Creatinine 3.13 H, Estimated Creat Clear 29, Estimated GFR 23 L, Est GFR ( Amer) 27 L, Glucose 167 H D, Calcium 8.4 L 07/27/19 15:01: POC Glucose 215 H 07/27/19 18:00: Acetone Level None detected 07/27/19 18:32: POC Glucose 206 H 07/27/19 22:57: POC Glucose 181 H 07/28/19 03:06: POC Glucose 169 H 07/28/19 06:09: WBC 10.0 D, RBC 3.51 L, Hgb 10.0 L, Hct 32.1 L, MCV 91.6, MCH 28.5, MCHC 31.1 L, RDW 13.7, Plt Count 319, MPV 8.1, Neut % (Auto) 55.6, Lymph % (Auto) 37.1, [place] % (Auto) 3.9, Eos % (Auto) 3.1, Baso % (Auto) 0.3, Neut # (Auto) 5.6, Lymph # (Auto) 3.7, [place] # (Auto) 0.4, Eos # (Auto) 0.3, Baso # (Auto) 0.0 07/28/19 06:09: Sodium 138, Potassium 4.0, Chloride 106, Carbon Dioxide 23, Anion Gap 13.0, BUN 32 H D, Creatinine 2.35 H D, Estimated Creat Clear 47, Estimated GFR 32 L, Est GFR ( Amer) 38 L D, Glucose 199 H, Calcium 8.4 L, Total Bilirubin 0.2, AST 19, ALT 14 D, Alkaline Phosphatase 133 H, Total Protein 5.6 L D, Albumin 2.1 L D, Globulin 3.5 H, Albumin/Globulin Ratio 0.6 L 07/28/19 06:39: POC Glucose 218 H Vital Signs - 24 hr 07/27/19 10:47 07/27/19 12:00 07/27/19 14:00 Temperature Pulse Rate 100 H 90 Pulse Rate [Left Brachial] 90 86 Respiratory Rate 18 18 Blood Pressure [Left Arm] 124/74 111/69 Blood Pressure [Right Arm] 02 Sat by Pulse Oximetry 100 100 07/27/19 16:00 07/27/19 19:37 07/27/19 20:00 Temperature 98.8 F Pulse Rate 94 H 100 H Pulse Rate [Left Brachial] 91 H 99 H 98 H Respiratory Rate 16 19 Blood Pressure [Left Arm] 126/82 Blood Pressure [Right Arm] 156/91 H 02 Sat by Pulse Oximetry 100 100 100 07/27/19 20:30 07/27/19 22:00 07/27/19 23:00 Temperature Pulse Rate Pulse Rate [Left Brachial] 97 H 96 H 94 H Respiratory Rate 19 16 17 Blood Pressure [Left Arm] Blood Pressure [Right Arm] 145/88 H 160/94 H 160/92 H 02 Sat by Pulse Oximetry 100 98 99 07/27/19 23:20 07/28/19 00:00 07/28/19 02:00 Temperature 98.9 F Pulse Rate 91 H Pulse Rate [Left Brachial] 91 H 80 Respiratory Rate 19 20 Blood Pressure [Left Arm] Blood Pressure [Right Arm] 153/101 H 149/97 H 02 Sat by Pulse Oximetry 99 99 07/28/19 02:50 07/28/19 03:30 07/28/19 04:00 Temperature 98.6 F Pulse Rate 80 Pulse Rate [Left Brachial] 80 Respiratory Rate 17 Blood Pressure [Left Arm] Blood Pressure [Right Arm] 150/100 H 150/97 H 02 Sat by Pulse Oximetry 98 98 07/28/19 04:30 07/28/19 06:00 07/28/19 08:00 Temperature 98.6 F Pulse Rate Pulse Rate [Left Brachial] 78 71 74 Respiratory Rate 17 16 18 Blood Pressure [Left Arm] 140/96 H Blood Pressure [Right Arm] 142/94 H 126/80 02 Sat by Pulse Oximetry 98 98 99 I & O for Last 24 hours: Intake & Output 07/25/19 07/26/19 07/27/19 07/28/19 23:59 23:59 23:59 23:59 Intake Total 4150 / 4150 3827 / 3827 2040 / 2040 Output Total 650 / 1250 3300 / 3750 1375 / 1375 Balance 3500 / 2900 527 / 77 665 / 665 Weight 140 lb 170 lb 2 oz Microbiology Reports for the Last 24 Hours: Microbiology 07/26/19 20:02 Urine,Catheterized Urine Culture - Preliminary NO GROWTH AFTER 24 HOURS - Constitutional no acute distress - *Routine HEENT Exam Head: Present: normocephalic Eye: Present: EOMI ENT: Present: mucous membranes moist - *Routine Neck Exam Present: supple. Absent: lymphadenopathy - *Routine Respiratory Exam Present: CTA bilaterally - *Routine Cardiovascular Exam Present: RRR - *Routine Abdominal Exam Present: soft, normoactive bowel sounds. Absent: tenderness - *Routine Extremities Exam Absent: cyanosis, clubbing, edema - *Routine Skin Exam Present: warm. Absent: rash - *Routine Neurological Exam Present: alert Assessment and Plan (1) DKA (diabetic ketoacidoses) Current visit: Yes Status: Acute Category: Medical Code(s): E11.10 - Type 2 diabetes mellitus with ketoacidosis without coma (2) MALCOM (acute kidney injury) Current visit: Yes Status: Acute Category: Medical Code(s): N17.9 - Acute kidney failure, unspecified (3) Hyperkalemia Current visit: Yes Status: Resolved Category: Medical Code(s): E87.5 - Hyperkalemia (4) IDDM (insulin dependent diabetes mellitus) Problem details: Poorly controlled. Restart regimen as per previously discussed and plan and med rec.will need close follow-up later this week in clinic where adjustments will be made at that time.. Current visit: Yes Status: Chronic Category: Medical Code(s): E11.9 - Type 2 diabetes mellitus without complications; Z79.4 - terminal supervisor (current) use of insulin (5) UTI (urinary tract infection) Current visit: Yes Status: Acute Qualifiers: Urinary tract infection type: site unspecified Hematuria presence: without hematuria Qualified Code(s): N39.0 - Urinary tract infection, site not speci fied Category: Medical Code(s): N39.0 - Urinary tract infection, site not specified (6) Change in mental status Current visit: No Status: Acute Category: Medical Code(s): R41.82 - Altered mental status, unspecified (7) Chronic renal failure Current visit: No Status: Chronic Category: Medical Code(s): N18.9 - Chronic kidney disease, unspecified (8) Urinary retention Current visit: No Status: Chronic Category: Medical Code(s): R33.9 - Retention of urine, unspecified (9) Medically noncompliant Current visit: No Status: Chronic Category: Medical Code(s): Z91.19 - Patient's noncompliance with other medical treatment and regimen (10) Recurrent UTI Current visit: No Status: Chronic Category: Medical Code(s): N39.0 - Urinary tract infection, site not specified (11) Urinary bladder disorder Current visit: No Status: Chronic Category: Medical Code(s): N32.9 - Bladder disorder, unspecified (12) Non compliance with medical treatment Current visit: No Status: Acute Category: Medical Code(s): Z91.19 - Patient's noncompliance with other medical treatment and regimen (13) Hypertension Current visit: No Status: Acute Category: Medical Code(s): I10 - Essential (primary) hypertension - Assessment and plan all Dx Assessment and Plan for all problems:: Labs have improved, patient is off insulin drip, will continue with 20 units of Lantus daily, await cultures, decrease IVF rate, OK to transfer out of step down.
[2019-07-29 05:54] LABS: Basophils % 0.4 % (0.1-2.0); Eosinophils # 0.2 K/mm3 (0.0-0.4); Eosinophils % 2.8 % (0.1-12.0); Hematocrit 33.5 % (42.0-52.0); Hemoglobin 10.5 g/dL (14.1-18.0); Lymphocytes # 3.4 K/mm3 (0.7-4.5); Lymphocytes % 44.6 % (10-50); Mean Corpuscular HGB Conc 31.4 g/dL (31.8-35.4); Mean Corpuscular Volume 89.3 fl (80-94); Mean Platelet Volume 8.3 fl (7.4-10.4); Monocytes # 0.3 K/mm3 (0.1-1.0); Monocytes % 3.7 % (1.7-9.3); Neutrophils # 3.7 K/mm3 (1.8-7.8); Neutrophils % 48.7 % (37.0-80.0); Platelet Count 296 K/mm3 (142-424); Red Blood Count 3.75 M/mm3 (4.60-6.20); Red Cell Distribution Width 13.7 % (11.5-17.5); White Blood Count 7.7 K/mm3 (4.8-10.8)
[2019-07-29 06:01] LABS: Anion Gap 14.1 mEq/L (5-15); Calcium 8.7 mg/dL (8.5-10.1)
--- NOTE | 2019-07-29 08:05 | Progress Note ---
<Kalani Christiansen - Last Filed: 07/29/19 08:06> Internal Medicine - PN: Subj *Date: 07/29/19 *Time: 08:06 Interval history: States he has not slept in 2 nights. He states his neuropathy and the noise keep him awake. He normally takes gabapentin. He is eating without problems. According to the nurse he drinks Sangeetha messed constantly. He has had an excellent urinary output. Electrolytes are normal and creatinine has improved. Patient states he would like to go home. Exam Vital signs and Labs for Last 24 Hours: Temp Pulse Resp BP Pulse Ox 98.0 F 75 16 158/97 H 99 07/29/19 07:59 07/29/19 07:59 07/29/19 07:59 07/29/19 07:59 07/29/19 07:59 Laboratory Results - last 24 hr 07/26/19 20:02: Urine Color Yellow, Urine Appearance Cloudy, Urine pH 5.5, Ur Specific [place] 1.015, Urine Protein 2+, Urine Glucose (UA) 3+, Urine Ketones 2+, Urine Blood 2+, Urine Nitrate Negative, Urine Bilirubin Negative, Urine Urobilinogen 0.2, Ur Leukocyte Esterase 2+ A, Urine WBC Tntc, Ur Squamous Epith Cells Occasional, Urine Bacteria Trace 07/26/19 22:09: POC Glucose > 600 H* 07/26/19 22:57: POC Glucose > 600 H* 07/27/19 01:01: POC Glucose > 600 H* 07/27/19 02:54: POC Glucose > 600 H* 07/28/19 11:14: POC Glucose 377 H* 07/28/19 15:03: POC Glucose 295 H 07/28/19 18:18: POC Glucose 282 H 07/28/19 22:33: POC Glucose 162 H 07/29/19 02:32: POC Glucose 180 H 07/29/19 05:35: WBC 7.7, RBC 3.75 L, Hgb 10.5 L, Hct 33.5 L, MCV 89.3, MCH 28.0, MCHC 31.4 L, RDW 13.7, Plt Count 296, MPV 8.3, Neut % (Auto) 48.7, Lymph % (Auto) 44.6, [place] % (Auto) 3.7, Eos % (Auto) 2.8, Baso % (Auto) 0.4, Neut # (Auto) 3.7, Lymph # (Auto) 3.4, [place] # (Auto) 0.3, Eos # (Auto) 0.2, Baso # (Auto) 0.0 07/29/19 05:35: Sodium 138, Potassium 4.1, Chloride 104, Carbon Dioxide 24, Anion Gap 14.1, BUN 25 H, Creatinine 1.90 H, Estimated Creat Clear 59, Estimated GFR 40 L, Est GFR ( Amer) 49 L D, Glucose 195 H, Calcium 8.7 07/29/19 05:51: POC Glucose 195 H I & O for Last 24 hours: Intake & Output 07/26/19 07/27/19 07/28/19 07/29/19 11:59 11:59 11:59 11:59 Intake Total 5985 / 5985 4032 / 4032 1995 Output Total 2700 / 2700 2625 / 2625 5700 / 5700 Balance 3285 / 3285 1407 / 1407 -3704 / -3704 Weight 140 lb 170 lb 2 oz 170 lb 9 oz Microbiology Reports for the Last 24 Hours: Microbiology 07/26/19 20:02 Urine,Catheterized Urine Culture - Preliminary Gram Positive Cocci 07/27/19 01:22 Blood Blood Culture - Preliminary NO GROWTH AFTER 48 HOURS 07/27/19 01:22 Blood Blood Culture - Preliminary NO GROWTH AFTER 48 HOURS - Constitutional no acute distress Comments: Sitting up in the bed eating his breakfast. - *Routine Respiratory Exam Present: CTA bilaterally (Anteriorly /posteriorly) - *Routine Cardiovascular Exam Present: RRR - *Routine Abdominal Exam Present: soft, normoactive bowel sounds. Absent: tenderness - *Routine Extremities Exam Absent: edema - *Routine Neurological Exam Present: alert, oriented X3 Assessment and Plan (1) DKA (diabetic ketoacidoses) Current visit: Yes Status: Acute Category: Medical Code(s): E11.10 - Type 2 diabetes mellitus with ketoacidosis without coma (2) MALCOM (acute kidney injury) Current visit: Yes Status: Acute Category: Medical Code(s): N17.9 - Acute kidney failure, unspecified (3) Hyperkalemia Current visit: Yes Status: Resolved Category: Medical Code(s): E87.5 - Hyperkalemia (4) IDDM (insulin dependent diabetes mellitus) Problem details: Poorly controlled. Restart regimen as per previously discussed and plan and med rec.will need close follow-up later this week in clinic where adjustments will be made at that time.. Current visit: Yes Status: Chronic Category: Medical Code(s): E11.9 - Type 2 diabetes mellitus without complications; Z79.4 - custodial (current) use of insulin (5) UTI (urinary tract infection) Current visit: Yes Status: Acute Qualifiers: Urinary tract infection type: site unspecified Hematuria presence: without hematuria Qualified Code(s): N39.0 - Urinary tract infection, site not specified Category: Medical Code(s): N39.0 - Urinary tract infection, site not specified (6) Change in mental status Current visit: No Status: Acute Category: Medical Code(s): R41.82 - Altered mental status, unspecified (7) Chronic renal failure Current visit: No Status: Chronic Category: Medical Code(s): N18.9 - Chronic kidney disease, unspecified (8) Urinary retention Current visit: No Status: Chronic Category: Medical Code(s): R33.9 - Retention of urine, unspecified (9) Medically noncompliant Current visit: No Status: Chronic Category: Medical Code(s): Z91.19 - Patient's noncompliance with other medical treatment and regimen (10) Recurrent UTI Current visit: No Status: Chronic Category: Medical Code(s): N39.0 - Urinary tract infection, site not specified (11) Urinary bladder disorder Current visit: No Status: Chronic Category: Medical Code(s): N32.9 - Bladder disorder, unspecified (12) Non compliance with medical treatment Current visit: No Status: Acute Category: Medical Code(s): Z91.19 - Patient's noncompliance with other medical treatment and regimen (13) Hypertension Current visit: No Status: Acute Category: Medical Code(s): I10 - Essential (primary) hypertension - Assessment and plan all Dx Assessment and Plan for all problems:: Remove Wise. Saline lock. Probably home today. <Ugo Durham - Last Filed: 07/29/19 08:59> Internal Medicine - PN: Subj *Date: 07/29/19 *Time: 08:59 Exam Vital signs and Labs for Last 24 Hours: Temp Pulse Resp BP Pulse Ox 98.0 F 70 16 173/93 H 99 07/29/19 07:59 07/29/19 08:09 07/29/19 07:59 07/29/19 08:09 07/29/19 07:59 Laboratory Results - last 24 hr 07/26/19 20:02: Urine Color Yellow, Urine Appearance Cloudy, Urine pH 5.5, Ur Specific [place] 1.015, Urine Protein 2+, Urine Glucose (UA) 3+, Urine Ketones 2+, Urine Blood 2+, Urine Nitrate Negative, Urine Bilirubin Negative, Urine Urobilinogen 0.2, Ur Leukocyte Esterase 2+ A, Urine WBC Tntc, Ur Squamous Epith Cells Occasional, Urine Bacteria Trace 07/26/19 22:09: POC Glucose > 600 H* 07/26/19 22:57: POC Glucose > 600 H* 07/27/19 01:01: POC Glucose > 600 H* 07/27/19 02:54: POC Glucose > 600 H* 07/28/19 11:14: POC Glucose 377 H* 07/28/19 15:03: POC Glucose 295 H 07/28/19 18:18: POC Glucose 282 H 07/28/19 22:33: POC Glucose 162 H 07/29/19 02:32: POC Glucose 180 H 07/29/19 05:35: WBC 7.7, RBC 3.75 L, Hgb 10.5 L, Hct 33.5 L, MCV 89.3, MCH 28.0, MCHC 31.4 L, RDW 13.7, Plt Count 296, MPV 8.3, Neut % (Auto) 48.7, Lymph % (Auto) 44.6, [place] % (Auto) 3.7, Eos % (Auto) 2.8, Baso % (Auto) 0.4, Neut # (Auto) 3.7, Lymph # (Auto) 3.4, [place] # (Auto) 0.3, Eos # (Auto) 0.2, Baso # (Au to) 0.0 07/29/19 05:35: Sodium 138, Potassium 4.1, Chloride 104, Carbon Dioxide 24, Anion Gap 14.1, BUN 25 H, Creatinine 1.90 H, Estimated Creat Clear 59, Estimated GFR 40 L, Est GFR ( Amer) 49 L D, Glucose 195 H, Calcium 8.7 07/29/19 05:51: POC Glucose 195 H I & O for Last 24 hours: Intake & Output 07/26/19 07/27/19 07/28/19 07/29/19 23:59 23:59 23:59 23:59 Intake Total 4150 / 4150 3827 / 3827 2968 / 2968 1068 / 1068 Output Total 650 / 1250 3300 / 3750 4575 / 5875 2500 / 2500 Balance 3500 / 2900 527 / 77 -1607 / -2907 -1432 / -1432 Weight 140 lb 170 lb 2 oz 170 lb 9 oz Microbiology Reports for the Last 24 Hours: Microbiology 07/26/19 20:02 Urine,Catheterized Urine Culture - Preliminary Gram Positive Cocci 07/27/19 01:22 Blood Blood Culture - Preliminary NO GROWTH AFTER 48 HOURS 07/27/19 01:22 Blood Blood Culture - Preliminary NO GROWTH AFTER 48 HOURS Assessment and Plan (1) DKA (diabetic ketoacidoses) Current visit: Yes Status: Acute Category: Medical Code(s): E11.10 - Type 2 diabetes mellitus with ketoacidosis without coma (2) MALCOM (acute kidney injury) Current visit: Yes Status: Acute Category: Medical Code(s): N17.9 - Acute kidney failure, unspecified (3) Hyperkalemia Current visit: Yes Status: Resolved Category: Medical Code(s): E87.5 - Hyperkalemia (4) IDDM (insulin dependent diabetes mellitus) Problem details: Poorly controlled. Restart regimen as per previously discussed and plan and med rec.will need close follow-up later this week in clinic where adjustments will be made at that time.. Current visit: Yes Status: Chronic Category: Medical Code(s): E11.9 - Type 2 diabetes mellitus without complications; Z79.4 - custodial (current) use of insulin (5) UTI (urinary tract infection) Current visit: Yes Status: Acute Qualifiers: Urinary tract infection type: site unspecified Hematuria presence: without hematuria Qualified Code(s): N39.0 - Urinary tract infection, site not sp ecified Category: Medical Code(s): N39.0 - Urinary tract infection, site not specified (6) Change in mental status Current visit: No Status: Acute Category: Medical Code(s): R41.82 - Altered mental status, unspecified (7) Chronic renal failure Current visit: No Status: Chronic Category: Medical Code(s): N18.9 - Chronic kidney disease, unspecified (8) Urinary retention Current visit: No Status: Chronic Category: Medical Code(s): R33.9 - Retention of urine, unspecified (9) Medically noncompliant Current visit: No Status: Chronic Category: Medical Code(s): Z91.19 - Patient's noncompliance with other medical treatment and regimen (10) Recurrent UTI Current visit: No Status: Chronic Category: Medical Code(s): N39.0 - Urinary tract infection, site not specified (11) Urinary bladder disorder Current visit: No Status: Chronic Category: Medical Code(s): N32.9 - Bladder disorder, unspecified (12) Non compliance with medical treatment Current visit: No Status: Acute Category: Medical Code(s): Z91.19 - Patient's noncompliance with other medical treatment and regimen (13) Hypertension Current visit: No Status: Acute Category: Medical Code(s): I10 - Essential (primary) hypertension - Assessment and plan all Dx Assessment and Plan for all problems:: Saw patient, agree with above note. Would like to see urine culture report prior to discharge.
--- NOTE | 2019-07-29 21:50 | Discharge Summary ---
General - General Admission date:: 07/26/19 Discharge date: 07/29/19 HPI HPI: Mr. Huber is a 38-year-old male with a long history of poorly controlled type 1 diabetes. According to nursing staff, he has had frequent admissions for diabetic ketoacidosis as well as chronic urinary tract infections. The patient presented to the emergency room last night via EMS with complaints of hyperglycemia, rapid respiratory rate, and urinary incontinence. His glucose was found to be 1465, his sodium was 125, his potassium was 7.7, he was in renal failure, and he had a pH of 6.96 with a PCO2 of 10 and a PO2 of 122.6. It appeared he had a urinary tract infection as well. He was admitted and started on insulin as well as ertapenem for a UTI. His glucose was down to 243 and his electrolytes had improved by the time of H&P. His renal function had improved slightly. The patient was a poor historian and very lethargic. He stated he had been seeing Dr. Chong for his diabetes and just saw him a few days ago. He also stated he had been taking his insulin. According to a recent discharge summary from Dr. Grossman, the patient had been discharged from their practice due to noncompliance. Nursing staff stated he had not filled his insulin since March. Hospital Course Hospital Course: The patient's initial chest x-ray showed nothing acute. His previous urine culture was growing yeast, therefore he was started on fluconazole as well as IV antibiotics. He was also started on IV insulin and his glucose improved. His IV fluids were changed to normal saline with potassium. The patient was changed over to subcutaneous insulin. A diet was ordered. He was able to eat and his glucose improved. He was transferred out of stepdown. The patient's electrolytes normalized and his creatinine improved. He wanted to be discharged home. His blood culture showed no growth but his urine was growing gram- positive cocci. His Wise was removed. Dr. Durham spoke with the microbiology tech who stated the culture results would be a few days. The patient was anxious for discharge, therefore he was discharged home on Bactrim and Diflucan as an outpatient. Objective Vital signs: Temp Pulse Resp BP Pulse Ox 98.0 F 70 16 173/93 H 99 07/29/19 07:59 07/29/19 08:09 07/29/19 07:59 07/29/19 08:09 07/29/19 07:59 Narrative: - Constitutional Comments: Lethargic, able to answer some questions but then falls asleep - *Routine HEENT Exam Head: Present: normocephalic Eye: Present: EOMI, PERRL ENT: Present: mucous membranes dry - *Routine Neck Exam Present: supple. Absent: lymphadenopathy - *Routine Respiratory Exam Present: CTA bilaterally - *Routine Cardiovascular Exam Present: RRR - *Routine Abdominal Exam Present: soft, normoactive bowel sounds. Absent: tenderness - *Routine Extremities Exam Absent: cyanosis, clubbing, edema - *Routine Skin Exam Present: warm. Absent: rash - *Routine Neurological Exam Present: altered mental status Results Labs on day of discharge: Labs from last 24 hours 07/29/19 07/29/19 07/29/19 11:06 05:51 05:35 WBC RBC Hgb Hct MCV MCH MCHC RDW Plt Count MPV Neut % (Auto) Lymph % (Auto) [place] % (Auto) Eos % (Auto) Baso % (Auto) Neut # (Auto) Lymph # (Auto) [place] # (Auto) Eos # (Auto) Baso # (Auto) Sodium 138 Potassium 4.1 Chloride 104 Carbon Dioxide 24 Anion Gap 14.1 BUN 25 H Creatinine 1.90 H Estimated Creat Clear 59 Estimated GFR 40 L Est GFR ( Amer) 49 L D Glucose 195 H POC Glucose 358 H* 195 H Calcium 8.7 Urine Color Urine Appearance Urine pH Ur Specific [place] Urine Protein Urine Glucose (UA) Urine Ketones Urine Blood Urine Nitrate Urine Bilirubin Urine Urobilinogen Ur Leukocyte Esterase Urine WBC Ur Squamous Epith Cells Urine Bacteria 07/29/19 07/29/19 07/28/19 05:35 02:32 22:33 WBC 7.7 RBC 3.75 L Hgb 10.5 L Hct 33.5 L MCV 89.3 MCH 28.0 MCHC 31.4 L RDW 13.7 Plt Count 296 MPV 8.3 Neut % (Auto) 48.7 Lymph % (Auto) 44.6 [place] % (Auto) 3.7 Eos % (Auto) 2.8 Baso % (Auto) 0.4 Neut # (Auto) 3.7 Lymph # (Auto) 3.4 [place] # (Auto) 0.3 Eos # (Auto) 0.2 Baso # (Auto) 0.0 Sodium Potassium Chloride Carbon Dioxide Anion Gap BUN Creatinine Estimated Creat Clear Estimated GFR Est GFR ( Amer) Glucose POC Glucose 180 H 162 H Calcium Urine Color Urine Appearance Urine pH Ur Specific [place] Urine Protein Urine Glucose (UA) Urine Ketones Urine Blood Urine Nitrate Urine Bilirubin Urine Urobilinogen Ur Leukocyte Esterase Urine WBC Ur Squamous Epith Cells Urine Bacteria 07/27/19 07/27/19 07/26/19 02:54 01:01 22:57 WBC RBC Hgb Hct MCV MCH MCHC RDW Plt Count MPV Neut % (Auto) Lymph % (Auto) [place] % (Auto) Eos % (Auto) Baso % (Auto) Neut # (Auto) Lymph # (Auto) [place] # (Auto) Eos # (Auto) Baso # (Auto) Sodium Potassium Chloride Carbon Dioxide Anion Gap BUN Creatinine Estimated Creat Clear Estimated GFR Est GFR ( Amer) Glucose POC Glucose > 600 H* > 600 H* > 600 H* Calcium Urine Color Urine Appearance Urine pH Ur Specific [place] Urine Protein Urine Glucose (UA) Urine Ketones Urine Blood Urine Nitrate Urine Bilirubin Urine Urobilinogen Ur Leukocyte Esterase Urine WBC Ur Squamous Epith Cells Urine Bacteria 07/26/19 07/26/19 22:09 20:02 WBC RBC Hgb Hct MCV MCH MCHC RDW Plt Count MPV Neut % (Auto) Lymph % (Auto) [place] % (Auto) Eos % (Auto) Baso % (Auto) Neut # (Auto) Lymph # (Auto) [place] # (Auto) Eos # (Auto) Baso # (Auto) Sodium Potassium Chloride Carbon Dioxide Anion Gap BUN Creatinine Estimated Creat Clear Estimated GFR Est GFR ( Amer) Glucose POC Glucose > 600 H* Calcium Urine Color Yellow Urine Appearance Cloudy Urine pH 5.5 Ur Specific [place] 1.015 Urine Protein 2+ Urine Glucose (UA) 3+ Urine Ketones 2+ Urine Blood 2+ Urine Nitrate Negative Urine Bilirubin Negative Urine Urobilinogen 0.2 Ur Leukocyte Esterase 2+ A Urine WBC Tntc Ur Squamous Epith Cells Occasional Urine Bacteria Trace Preliminary micro results at discharge 07/26/19 20:02 Urine Culture - Preliminary Urine,Catheterized 07/27/19 01:22 Blood Culture - Preliminary Blood NO GROWTH AFTER 48 HOURS 07/27/19 01:22 Blood Culture - Preliminary Blood NO GROWTH AFTER 48 HOURS DS: Diagnosis - Discharge Diagnosis (1) DKA (diabetic ketoacidoses) Status: Acute (2) MALCOM (acute kidney injury) Status: Acute (3) Hyperkalemia Status: Resolved (4) IDDM (insulin dependent diabetes mellitus) Status: Chronic Problem details: Poorly controlled. Restart regimen as per previously discussed and plan and med rec.will need close follow-up later this week in clinic where adjustments will be made at that time.. (5) UTI (urinary tract infection) Status: Acute (6) Change in mental status Status: Acute (7) Chronic renal failure Status: Chronic (8) Urinary retention Status: Chronic (9) Medically noncompliant Status: Chronic (10) Recurrent UTI Status: Chronic (11) Urinary bladder disorder Status: Chronic (12) Non compliance with medical treatment Status: Acute (13) Hypertension Status: Acute Discharge Plan - Patient Discharge Instructions ACTIVITY: Continue current activity DIET: continue same diet Patient Instructions: Chronic Renal Failure, DI for Urinary Tract Infection (UTI), DI for Sepsis -- Adult, DI for Diabetic Ketoacidosis - Follow up Plan Follow up with: Ugo Durham MD [Primary Care Provider] - 08/12/19 10:30 am (please arrive at 10:15 for appointment at 10:30) Disposition: Home, Self-Custodial Medications: Home Medications Medication Instructions Recorded Confirmed Type Albuterol Sulfate [Proair Hfa 2 puffs IH Q4HP PRN #1 inh 09/15/18 07/26/19 Rx 90mcg/puff Inh] Gabapentin [Neurontin 800mg Tab] 800 mg PO QID 11/08/18 07/26/19 History Insulin Aspart [Novolog] 0 unit SQ DAILY 03/15/19 07/26/19 History Etodolac [Lodine 400mg Tab] 400 mg PO BID 07/26/19 07/26/19 History Carvedilol [Carvedilol 6.25mg Tab] 6.25 mg PO BID 07/27/19 07/27/19 History Insulin Glargine,Hum.rec.anlog 20 units SQ HS 07/27/19 07/27/19 History [Insulin Glargine 100 Units/mL 3mL flexpen] Oxybutynin Chloride [Ditropan 5mg 5 mg PO BID 07/27/19 07/27/19 History tablet] Fluconazole [Diflucan 100mg tablet] 100 mg PO DAILY #7 tab 07/29/19 Rx Sulfamethoxazole/Trimethoprim 1 each PO BID #14 tab 07/29/19 Rx [Bactrim DS tablet] Prescriptions/Medication Reconciliation: New Sulfamethoxazole/Trimethoprim [Bactrim DS tablet] 1 each PO BID #14 tab Fluconazole [Diflucan 100mg tablet] 100 mg PO DAILY #7 tab Continued Albuterol Sulfate [Proair Hfa 90mcg/puff Inh] 2 puffs IH Q4HP PRN #1 inh PRN Reason: Shortness Of Breath Or Wheezing Gabapentin [Neurontin 800mg Tab] 800 mg PO QID Insulin Aspart [Novolog] 0 unit SQ DAILY Oxybutynin Chloride [Ditropan 5mg tablet] 5 mg PO BID Insulin Glargine,Hum.rec.anlog [Insulin Glargine 100 Units/mL 3mL flexpen] 20 units SQ HS Carvedilol [Carvedilol 6.25mg Tab] 6.25 mg PO BID Etodolac [Lodine 400mg Tab] 400 mg PO BID Discontinued cephALEXin [cephALEXin 250mg capsule] 250 mg PO DAILY - Problem Reconciliation Problems Reviewed?: Yes
== END 2019-07-29 14:24 | disposition home or self-care (01) | DRG 638 ==
LOC: ER 19:57 → 2ND 21:20
PROVIDERS: ADMIT Family Medicine; ATTEND Family Medicine
CPT/HCPCS: 36415; 71010; 71045; 80048; 80053; 80305; 81001; 82009; 82150; 82803; 82947; 82962; 83605; 83690; 83735; 84484; 85007; 85025; 87040; 87086; 87088; 93005; 96365; 96366; 96367; 96375; 99285; J1335; J1450

== ENCOUNTER 2019-11-01 10:31 | Emergency (ER) | payer SELFPAY ==
[2019-11-01 11:08] VITALS: BP 170/102; PULSE 103; RESP 18; TEMP 36.6; O2SAT 99; BMI 24.5
--- NOTE | 2019-11-01 11:32 | HMH.EDUTC ---
[facility] [place] Clinical Impression: Leg pain Qualifiers: Laterality: left Qualified Code(s): M79.605 - Pain in left leg Disposition: Home, Self-Care Condition on Discharge: Good Instructions: DI for Chronic Pain -- Adult, DI for Leg Pain, Diclofenac Additional Instructions: *RICE, Rest the extremity, Ice 15-20 minutes 3-4 times daily, Compress- wear the phillip wrap as discussed as much as possible to help reduce swelling and pain, Elevate the extremity when at rest *Phillip wrap is for support and help control swelling, use it except in the shower. Be sure that is not to tight but not to loose either *Elevate when resting Over the counter Ibuprofen if your doctor has told you that you can take it May Tylenol in between doses of Ibuprofen to help If you cannot take Ibuprofen then take Tyelnol as directed on package for pain Immediately follow up with your family doctor for new or worsening of symptoms, or no noticeable improvement over the next 3-5 days Follow up with family doctor if no improvement or any worsening of symptoms and for further evaluation and treatment Straight to ED if any life threatening symptoms Referrals: Provider,Referral, MD [Primary Care Provider] - As needed Time of Disposition: 12:27 Medical Decision Making - Michael Inquiry Pt receiving controlled substance: No Michael was queried for this patient: No Vital Signs: 11/01/19 11:08 Temperature 97.8 F Temperature Source Oral Pulse Rate [Radial] 103 H Respiratory Rate 18 Blood Pressure [Right Arm] 170/102 H Blood Pressure Mean [Right Arm] 124 Blood Pressure Source [Right Arm] Automatic Cuff Blood Pressure Position [Right Arm] Sitting 02 Sat by Pulse Oximetry 99 Oxygen Delivery Method Room Air Orders (Tests/Meds): ORDERS Category Date Time Status Tibia/fibula XR left 2 views [XR tibia fibula LT 2V] Exams 11/01/19 11:33 Taken Stat XR femur LT 2V Stat Exams 11/01/19 11:33 Taken XR knee LT 3V Stat Exams 11/01/19 11:33 Taken - Radiology Data #1 Image(s): Tib/Fib Image Reviewed: Yes I reviewed the patient's radiology image Preliminary Findings: Normal/NAD #2 Image(s): Knee Image Reviewed: Yes I reviewed the patient's radiology image #3 Image(s): Femur Image Reviewed: Yes I reviewed the patient's radiology image w/the ED provider Preliminary Findings: No Fracture Seen [facility] [place] - General Stated complaint: pain below hip Knee and ray Time Seen by Provider: 11/01/19 11:34 Mode of Arrival: Ambulatory Source of Information: Patient Limitations: No Limitations Description of Symptoms (Recalled from Triage Doc. by RN): left leg, thigh pain, recently seen with negative xray results. HEENT Symptoms (Recalled from RN notes): No Resp Symptoms (Recalled from RN notes): No Skin Symptoms (Recalled from RN notes): No MS Symptoms (Recalled from RN notes): Yes Functional Status (Recalled from RN notes): wnl - History of Present Illness Provider Complaint: Patient state that he fell 2 weeks ago and landed on his buttock area states that he came in and got xrays of his back but since falling has been having pain on and off in his left upper leg, knee and lower leg States that he walks with a cane and at certain times pain is worse and wanted to come in and get it checked to make sure he didn't break something in his leg State that lower back is doing better - Related Data Home Medications Medication Instructions Recorded Confirmed Gabapentin [Neurontin 800mg Tab] 800 mg PO QID 11/08/18 09/27/19 Insulin Aspart [Novolog] 0 unit SQ DAILY 03/15/19 09/27/19 Insulin Glargine,Hum.rec.anlog 20 units SQ HS 07/27/19 09/27/19 [Insulin Glargine 100 Units/mL 3mL flexpen] Oxybutynin Chloride [Ditropan 5mg 5 mg PO BID 07/27/19 09/27/19 tablet] carvediloL [Carvedilol 6.25mg Tab] 6.25 mg PO BID 07/27/19 09/27/19 Previous Rx's Medication Instructions Recorded Ondansetron [Zofran 4mg ODT] 4 mg PO TIDP PRN #10 tab.
--- NOTE | 2019-11-01 11:33 | XR_ITS ---
PROCEDURE: XR KNEE LT 3V CLINICAL INDICATION: fell 2 weeks ago having pain COMPARISON: XR KNEE RT 3V from 07/19/2019 FINDINGS: Again seen is the sclerotic area involving the proximal tibial medullary portion as described on the tibia and fibula report. The cortex is intact without periosteal reaction. Alignment common in joint spaces are normal. There is no acute fracture or joint effusion. There are vascular calcified plaques. IMPRESSION: Proximal tibial sclerotic focus described on the tibia fibular report. No acute process involving the knee. Dictated by: Bill Bynum 11/01/2019 16:58 Electronically signed by Bill Bynum in [place] 11/01/2019 16:58
--- NOTE | 2019-11-01 11:33 | XR_ITS ---
PROCEDURE: XR FEMUR LT 2V CLINICAL INDICATION: fell 2 weeks ago having pain COMPARISON: No exams were available for comparison FINDINGS: Bone density is normal without acute fracture. There are vascular calcified plaques. The alignment of left hip joint area appears normal. IMPRESSION: No acute process. Dictated by: Bill Bynum 11/01/2019 17:00 Electronically signed by Bill Bynum in [place] 11/01/2019 17:00
--- NOTE | 2019-11-01 11:33 | XR_ITS ---
PROCEDURE: XR TIBIA FIBULA LT 2V CLINICAL INDICATION: fell 2 wks ago having pain COMPARISON: No exams were available for comparison FINDINGS: The bone density is normal except there is a sclerotic focus along the medullary portion of the in proximal tibia. This measures approximately 4.9 centimeters in length in 1 centimeter in thickness. The overlying cortex is intact and there is no periosteal reaction. There is no acute fracture. There are vascular calcified plaques. IMPRESSION: No acute process. Vascular calcifications. Considering the patient's age rule out diabetes. Sclerotic focus as described is likely benign and could be fibrous cortical defect or bone reaction from remote injury. I would suggest a 6 month follow-up plain film exam to confirm stability. Dictated by: Bill Bynum 11/01/2019 16:56 Electronically signed by Bill Bynum in [place] 11/01/2019 16:56
[2019-11-01 13:07] VITALS: BP 170/102; PULSE 103; RESP 18; TEMP 36.6; O2SAT 99
== END 2019-11-01 13:08 | disposition home or self-care (01) ==
PROVIDERS: Emergency Provider Nurse Practitioner
DX: M79.605 Pain in left leg (principal); M25.552 Pain in left hip; E78.5 Hyperlipidemia, unspecified; N28.9 Disorder of kidney and ureter, unspecified; D64.9 Anemia, unspecified; Z88.0 Allergy status to penicillin; Z90.09 Acquired absence of other part of head and neck; Z79.899 Other long term (current) drug therapy; E11.9 Type 2 diabetes mellitus without complications; Z79.4 Long term (current) use of insulin
CPT/HCPCS: 73552; 73562; 73590; 99201

== ENCOUNTER 2020-02-12 21:13 | Emergency (ER) | payer MEDICARE, SELFPAY ==
--- NOTE | 2020-02-12 21:11 | ECG_ITS ---
APPROVED REPORT Exam: Resting ECG HR:115 bpm ECG Measurements Heart Rate 115 AXES VA 154 P 68 QRSd 92 QRS -57 QT 352 T 14 QTc 486 <Conclusion> Sinus tachycardia Possible Left atrial enlargement Left axis deviation,LAHB Abnormal ECG Electronically signed by : Oneil Rob, 02/13/2020 19:49:34
[2020-02-12 21:16] VITALS: BP 179/73; PULSE 119; RESP 32; O2SAT 98
--- NOTE | 2020-02-12 21:16 | XR_ITS ---
PROCEDURE: XR CHEST PORTABLE CLINICAL HISTORY: SOB Shortness of breath COMPARISON: XR CHEST PORTABLE from 08/27/2019 XR CHEST 2V from 12/05/2019 XR CHEST AP from 12/17/2019 FINDINGS: There is mild cardiomegaly without failure . Lungs are clear bilaterally. No acute bony abnormalities. IMPRESSION: Cardiomegaly otherwise negative Dictated by: Layton Pires MD 02/13/2020 07:08 Electronically signed by Layton Pires MD in [place] 02/13/2020 07:08
--- NOTE | 2020-02-12 21:17 | PC.NURSE ---
pt assessment completed. all ppe worn per staff
[2020-02-12 21:19] VITALS: BP 198/99; PULSE 112; RESP 36; TEMP 36.1; O2SAT 96; BMI 24.7
[2020-02-12 21:22] LABS: Microscopic, Urine URINE MICROSCOPIC (MICROSCOPIC)
[2020-02-12 21:31] LABS: Appearance,Urine CLEAR (Clear); Blood, Urine 2+ (Negative); Color,Urine YELLOW (Yellow); Glucose,Urine (UA) 3+ (Negative); Ketones,Urine 2+ (Negative); Leukocyte Esterase,Urine 2+ (Negative); Nitrate,Urine Negative (Negative); PH,Urine 5.5 (5.0-8.5); Protein,Urine 3+ (Negative); Specific Gravity, Urine 1.025 (1.005-1.030); Urobilinogen,Urine 0.2 EU/dl (0.2)
[2020-02-12 21:33] LABS: Bilirubin,Urine Negative (Negative)
[2020-02-12 21:36] LABS: Bacteria,Urine Trace /lpf
[2020-02-12 21:39] LABS: ABG Base Excess -27.6 mmol/L (-2.4-2.3); ABG HCO3 2.6 mmhg (22.0-26.0); ABG Oxygen Saturation 98 % (90-100); ABG PO2 142.7 mmhg (80-100); ABG TCO2 2.9 mmhg (23-27)
[2020-02-12 21:45] LABS: ABG PH 7.07 mmol/L (7.35-7.45); Oxygen R/A %; Source Left Brachial
[2020-02-12 21:46] LABS: ABG PCO2 9.1 mmhg (35.0-45.0)
[2020-02-12 21:47] LABS: Chloride 91 mmol/L (98-107); Sodium 130 mmol/L (136-145)
[2020-02-12 21:49] LABS: Blood Urea Nitrogen 64 mg/dl (9-20); Creatinine Clearance Estimated 20 mL/min (50-200); Estimated Glomerular Filt Rate 15 ml/min (>60); GFR (African American) 18 ML/MIN (>60)
[2020-02-12 21:50] LABS: Alanine Aminotransferase 35 U/L (12-78); Albumin Level 3.8 g/dl (3.5-5.0); Albumin/Globulin Ratio 1.5 (1.1-1.8); Alkaline Phosphatase 158 U/L (38-126); Aspartate Amino Transferase 36 U/L (17-59); Basophils % 0.2 % (0.1-2.0); Bilirubin,Total 0.3 mg/dl (0.2-1.3); Calcium 9.3 mg/dl (8.4-10.2); Eosinophils # 0.1 K/mm3 (0.0-0.4); Eosinophils % 0.3 % (0.1-12.0); Globulin 2.5 g/dL (1.3-3.2); Hematocrit 43.8 % (42.0-52.0); Hemoglobin 12.5 g/dL (14.1-18.0); Lymphocytes # 0.9 K/mm3 (0.7-4.5); Lymphocytes % 4.8 % (10-50); Mean Corpuscular HGB Conc 28.5 g/dL (31.8-35.4); Mean Corpuscular Hemoglobin 27.9 pg (27.0-31.2); Mean Platelet Volume 9.7 fl (7.4-10.4); Monocytes # 0.9 K/mm3 (0.1-1.0); Monocytes % 4.5 % (1.7-9.3); Neutrophils # 17.2 K/mm3 (1.8-7.8); Neutrophils % 90.1 % (37.0-80.0); Platelet Count 397 K/mm3 (142-424); Red Blood Count 4.47 M/mm3 (4.60-6.20); Red Cell Distribution Width 13.9 % (11.5-17.5); Total Protein,Serum 6.3 g/dl (6.3-8.2); White Blood Count 19.1 K/mm3 (4.8-10.8)
[2020-02-12 21:52] LABS: MANUAL DIFFERENTIAL MANUAL DIFFERENTIAL (MANUAL DIFF)
[2020-02-12 21:54] LABS: Acetone, Serum (Rapid) Small (None Detect)
[2020-02-12 21:55] LABS: Lactic Acid 4.3 mmol/L (0.7-2.1)
--- NOTE | 2020-02-12 21:55 | PC.NURSE ---
verbal orders per md for bicarb, insulin and invanz. call to pharmd for confirmation per protocol
--- NOTE | 2020-02-12 21:57 | HMH.EDAMS ---
ED Disposition Clinical Impression: Severe sepsis with acute organ dysfunction, Septic shock, MALCOM (acute kidney injury) DKA (diabetic ketoacidoses) Qualifiers: Diabetes mellitus type: type 1 Diabetes mellitus complication detail: without coma Qualified Code(s): E10.10 - Type 1 diabetes mellitus with ketoacidosis without coma UTI (urinary tract infection) Qualifiers: Urinary tract infection type: site unspecified Hematuria presence: without hematuria Qualified Code(s): N39.0 - Urinary tract infection, site not specified Disposition: Xfer Short-Term Hosp Condition on Discharge: Critical Instructions: DI for Altered Mental Status Referrals: Provider,Referral, MD [Primary Care Provider] - - Critical Care Critical Care Time: Yes Attestation: On 02/12/20, the high probability of a clinically significant, sudden or life threatening deterioration of the following system(s) required my full and direct attention, intervention and personal management. The time I documented below is in addition to time spent performing reported procedures but includes the following listed in this critical care notation. Total Critical Care Time: 60 Vital system(s) involved:: Metabolic Failure My critical care processes included: Assessment & monitoring of V/S, Initial and Re-exams, Data Review/Interpretation, Medication Orders and management, Documentation Medical Decision Making - Medical Records Medical records reviewed: Yes: I reviewed the patient's medical records. - Michael Inquiry Pt receiving controlled substance: No Vital Signs: 02/12/20 21:19 Temperature 96.9 F L Temperature Source Rectal Pulse Rate [Right Brachial] 112 H Respiratory Rate 36 H Blood Pressure [Right Arm] 198/99 H Blood Pressure Mean [Right Arm] 132 Blood Pressure Source [Right Arm] Automatic Cuff Blood Pressure Position [Right Arm] Supine 02 Sat by Pulse Oximetry 96 Oxygen Delivery Method Room Air - Lab Data Lab results reviewed: Yes: I reviewed the patient's lab results. Lab Results 02/12/20 21:16: Specimen Source Left brachial, O2 % R/a, ABG pH 7.07 L*, ABG pCO2 9.1 L, ABG pO2 142.7 H, ABG HCO3 2.6 L, ABG Total CO2 2.9 L, ABG O2 Saturation 98, ABG Base Excess -27.6 L 02/12/20 21:20: Urine Color Yellow, Urine Appearance Clear, Urine pH 5.5, Ur Specific [place] 1.025, Urine Protein 3+, Urine Glucose (UA) 3+, Urine Ketones 2+, Urine Blood 2+, Urine Nitrate Negative, Urine Bilirubin Negative, Urine Urobilinogen 0.2, Ur Leukocyte Esterase 2+ A, Urine RBC 3-5, Urine WBC 10-20, Ur Squamous Epith Cells 3-5, Urine Bacteria Trace 02/12/20 21:30: WBC 19.1 H, RBC 4.47 L, Hgb 12.5 L, Hct 43.8, MCV 98.0 H, MCH 27.9, MCHC 28.5 L, RDW 13.9, Plt Count 397, MPV 9.7, Neut % (Auto) 90.1 H, Lymph % (Auto) 4.8 L, [place] % (Auto) 4.5, Eos % (Auto) 0.3, Baso % (Auto) 0.2, Neut # (Auto) 17.2 H, Lymph # (Auto) 0.9, [place] # (Auto) 0.9, Eos # (Auto) 0.1, Baso # (Auto) 0.0, Total Counted 100, Neutrophils % (Manual) 95 H, Lymphocytes % (Manual) 4 L, Basophils % (Manual) 1.0, Platelet Estimate Normal, RBC Morphology Normal 02/12/20 21:30: Sodium 130 L, Potassium 6.3 H*, Chloride 91 L, Carbon Dioxide < 5 L*, Anion Gap 40.3 H, BUN 64 H, Creatinine 4.50 H, Estimated Creat Clear 20, Estimated GFR 15 L*, Est GFR ( Amer) 18 L*, Glucose 923 H*, Calcium 9.3, Total Bilirubin 0.3, AST 36, ALT 35, Alkaline Phosphatase 158 H, Total Protein 6.3, Albumin 3.8, Globulin 2.5, Albumin/Globulin Ratio 1.5, Acetone Level Small 02/12/20 21:30: Lactate 4.3 H Result diagrams: 02/12/20 21:30 02/12/20 21:30 Orders (Tests/Meds): ED MEDICATIONS Generic Name Dose Route Start Last Admin Trade Name Freq PRN Reason Stop Dose Admin Ertapenem 1 gm/ Sodium 50 mls @ 100 mls/hr 02/12/20 22:00 Chloride IV 02/26/20 21:59 Q24H [facility] Protocol ORDERS Category Date Time Status XR chest portable Stat Exams 02/12/20 21:16 Taken Blood Culture Stat Micro 02/12/20 21:30 Received Urine Culture Stat Micr
[2020-02-12 21:58] LABS: Anion Gap 40.3 mEq/L (5-15)
[2020-02-12 21:59] LABS: Potassium 6.3 mmoL/L (3.5-5.1)
[2020-02-12 22:00] LABS: Carbon Dioxide < 5 mmol/L (22.0-30.0); Glucose 923 mg/dl (74-100)
--- NOTE | 2020-02-12 22:05 | PC.NURSE ---
spoke with janes lamasd re: bicarb and insulin administration for confirmation
[2020-02-12 22:18] LABS: Lymphocytes % 4 % (10-50); Neutrophils % 95 % (42-76); Total Cells Counted 100
[2020-02-12 22:19] LABS: Platelet Estimate Normal; RBC Morphology Normal
--- NOTE | 2020-02-12 22:20 | PC.NURSE ---
accepted to uked. report given to dcn
[2020-02-12 22:39] VITALS: BP 126/74; PULSE 117; RESP 32; TEMP 36.1; O2SAT 97
[2020-02-12 23:13] VITALS: BP 142/70; PULSE 121; RESP 18; TEMP 36.4; O2SAT 98
[2020-02-17 09:56] LABS: POC Glucose,Bedside > 600 (70-110)
== END 2020-02-12 23:16 | disposition short-term general hospital (02) ==
PROVIDERS: Emergency Provider Emergency Medicine
DX: N17.9 Acute kidney failure, unspecified (principal); E10.10 Type 1 diabetes mellitus with ketoacidosis without coma; N30.00 Acute cystitis without hematuria; A41.9 Sepsis, unspecified organism; Z79.4 Long term (current) use of insulin; I10 Essential (primary) hypertension; F17.290 Nicotine dependence, other tobacco product, uncomplicated; Z90.09 Acquired absence of other part of head and neck; Z79.899 Other long term (current) drug therapy
CPT/HCPCS: 71045; 80053; 81001; 82009; 82803; 82962; 83605; 85007; 85025; 87040; 87086; 87088; 87186; 93005; 96365; 96367; 96375; 99284; J1335

== ENCOUNTER → 2020-03-16 11:13 | Outpatient (POV) | payer MEDICARE, MEDICAID, SELFPAY | PROVIDERS: PCP Specialist; Visit Provider Specialist | DX: R20.2 Paresthesia of skin (principal); M79.605 Pain in left leg; M79.604 Pain in right leg | CPT/HCPCS: 95886; 95910 ==

== ENCOUNTER 2020-03-30 01:12 | Inpatient (IN) | payer MEDICARE, MEDICAID, SELFPAY ==
[2020-03-30] VITALS (25 sets, daily range): BP systolic 106–220; BP diastolic 57–138; PULSE 100–136; RESP 16–28; TEMP 36.6–39.7; O2SAT 95–100; BMI 20.4; BMI 25.9
--- NOTE | 2020-03-30 | ECG_ITS ---
APPROVED REPORT Exam: Resting ECG HR:112 bpm ECG Measurements Heart Rate 112 AXES [place] 140 P 58 QRSd 74 QRS -15 QT 354 T 48 QTc 483 <Conclusion> Sinus tachycardia Possible Left atrial enlargement Borderline ECG Electronically signed by : Oneil Rob, 03/31/2020 08:42:32
--- NOTE | 2020-03-30 00:34 | PC.NURSE ---
pt arrives via ems a& ox 3. aware of self, location and situation as he has been told. pt placed on seizure precautions after transfer to bed.
--- NOTE | 2020-03-30 00:57 | CT_ITS ---
PROCEDURE: CT HEAD/BRAIN WO CON Patient Age:39Y CLINICAL INDICATION: seizure Hyperglycemia COMPARISON: HEADWO CT head/brain wo con from 06/15/2019 CT HEAD/BRAIN WO CON from 12/17/2019 TECHNIQUE: Standard axial images were obtained. No IV contrast used All CT scans at the facility use one or more dose reduction, viz: automated exposure control, ma/kV adjustment per patient size (including targeted exams where dose is matched to indication, i.e. head), or iterative reconstruction technique. FINDINGS: No acute intracranial findings. No intracranial hemorrhage. No subdural or extra-axial fluid collection is evident. Mild diffuse cerebral atrophy age-appropriate, unchanged since prior study. Slightly more focal atrophy posterior parietal region on the final slices towards convexity, (image 33) of again noted and actually was more evident on previous study than today. The Lateral ventricles are slight generous in size reflecting the of mild cerebral atrophy but no hydrocephalus.The ventricles and basal cisterns appear clear and satisfactory. No mass or midline shift nor mass effect. Posterior fossa unremarkable. Skull intact- calvarium unremarkable appearance. Nomastoid effusions. Mastoid air cells are well developed and clear. Middle ear clear. IAC's symmetric. Nosinus air-fluid level. Visualized portions of the paranasal sinuses and orbits unremarkable. IMPRESSION: No acute intracranial findings. . Stable CT brain. No change since June 2019 . Mild cerebral atrophy Dictated by: Yossi Seymour MD 03/30/2020 07:12 Electronically signed by Yossi Seymour MD in [place] 03/30/2020 07:12
--- NOTE | 2020-03-30 00:57 | XR_ITS ---
PROCEDURE: XR CHEST PORTABLE Patient Age:39Y CLINICAL HISTORY: hyperglycemia, seizure COMPARISON: XR CHEST 2V from 12/05/2019 XR CHEST AP from 12/17/2019 XR CHEST PORTABLE from 02/12/2020 FINDINGS: AP supine portable CX are. Compared to 02/12/2020 Lungs are well expanded and clear with no active disease. The heart is upper normal in size jeanette and mediastinal structures appears satisfactory. The slightly more generous upper lobe vessels reflects the AP portable supine technique. No overt CHF. A less optimal inspiration today may also accentuate markings but The chest wall unremarkable no pleural effusions, no pneumothorax. . IMPRESSION: . Nothing definitely acute. Lungs clear.. Stable chest Heart upper normal size Dictated by: Yossi Seymour MD 03/30/2020 09:57 Electronically signed by Yossi Seymour MD in [place] 03/30/2020 09:57
--- NOTE | 2020-03-30 01:01 | PC.NURSE ---
states that patient's lactic acid level is only elevated due to hyperglycemia and not truly a sepsis patient secondary to an infection.
--- NOTE | 2020-03-30 01:04 | HMH.EDSEIZ ---
ED Disposition Clinical Impression: Delirium due to general medical condition Diabetes mellitus, insulin dependent (IDDM), uncontrolled Qualifiers: Glycemic state: with hyperglycemia Qualified Code(s): E10.65 - Type 1 diabetes mellitus with hyperglycemia UTI (urinary tract infection) Qualifiers: Urinary tract infection type: site unspecified Hematuria presence: without hematuria Qualified Code(s): N39.0 - Urinary tract infection, site not specified Disposition: Admitted As Inpatient Condition on Discharge: Serious Referrals: Provider,Referral, MD [Primary Care Provider] - - Critical Care Critical Care Time: No Attestation: On , the high probability of a clinically significant, sudden or life threatening deterioration of the following system(s) required my full and direct attention, intervention and personal management. The time I documented below is in addition to time spent performing reported procedures but includes the following listed in this critical care notation. Medical Decision Making - Medical Records Medical records reviewed: Yes: I reviewed the patient's medical records. - Michael Inquiry Pt receiving controlled substance: No Vital Signs: 03/30/20 00:35 Temperature 98.1 F Temperature Source Rectal Pulse Rate [Right Brachial] 113 H Respiratory Rate 20 Blood Pressure [Right Arm] 190/76 H Blood Pressure Mean [Right Arm] 114 Blood Pressure Source [Right Arm] Manual Cuff/ Auscultation Blood Pressure Position [Right Arm] Supine 02 Sat by Pulse Oximetry 95 Oxygen Delivery Method Room Air - Lab Data Lab results reviewed: Yes: I reviewed the patient's lab results. Lab Results 03/30/20 01:00: Urine Color Yellow, Urine Appearance Clear, Urine pH 6.5, Ur Specific [place] 1.015, Urine Protein 2+, Urine Glucose (UA) 3+, Urine Ketones Negative, Urine Blood 2+, Urine Nitrate Positive, Urine Bilirubin Negative, Urine Urobilinogen 0.2, Ur Leukocyte Esterase Trace, Urine WBC 50-100 03/30/20 01:00: WBC 7.3, RBC 4.84, Hgb 14.0 L, Hct 44.4, MCV 91.7, MCH 28.9, MCHC 31.5 L, RDW 13.9, Plt Count 310, MPV 9.3, Neut % (Auto) 63.8, Lymph % (Auto) 27.5, [place] % (Auto) 3.6, Eos % (Auto) 3.9, Baso % (Auto) 1.3, Neut # (Auto) 4.7, Lymph # (Auto) 2.0, [place] # (Auto) 0.3, Eos # (Auto) 0.3, Baso # (Auto) 0.1 03/30/20 01:00: Sodium 128 L, Potassium 4.7, Chloride 94 L, Carbon Dioxide 24, Anion Gap 14.7, BUN 33 H, Creatinine 2.30 H, Estimated Creat Clear 34, Estimated GFR 32 L, Est GFR ( Amer) 39 L, Glucose 850 H*, Calcium 9.3, Total Bilirubin 0.3, AST 29, ALT 24, Alkaline Phosphatase 230 H, Troponin I 0.03, Total Protein 7.4, Albumin 4.3, Globulin 3.1, Albumin/Globulin Ratio 1.4, Acetone Level None detected 03/30/20 01:00: Urine Opiates Screen Negative, Urine Methadone Screen Negative, Ur Barbituates Screen Negative, Ur Phencyclidine Scrn Negative, Ur Amphetamines Screen Negative, U Benzodiazepines Scrn Negative, Urine Cocaine Screen Negative, U Marijuana (THC) Screen Negative 03/30/20 01:00: Ammonia < 9 L 03/30/20 01:00: Lactate 2.7 H 03/30/20 01:07: Specimen Source R/r, O2 % R/a, ABG pH 7.37, ABG pCO2 38.4, ABG pO2 80.2, ABG HCO3 21.9 L, ABG Total CO2 23.0, ABG O2 Saturation 96, ABG Base Excess -3.4 L, Layton Test Y Result diagrams: 03/30/20 01:00 03/30/20 01:00 Orders (Tests/Meds): ED MEDICATIONS Generic Name Dose Route Start Last Admin Trade Name Freq PRN Reason Stop Dose Admin Insulin Human Regular 100 unit 101 mls @ 4.04 mls/hr 03/30/20 02:00 / Sodium Chloride IV 04/29/20 01:59 .Q25H CASTILLO Protocol 4 UNIT/HR Insulin Human Regular 100 unit 101 mls @ 6.06 mls/hr 03/30/20 02:30 / Sodium Chloride IV 04/29/20 02:29 .[id number] CASTILLO Protocol 6 UNIT/HR Discontinued Medications Generic Name Dose Route Start Last Admin Trade Name Freq PRN Reason Stop Dose Admin Insulin Human Regular 10 unit 03/30/20 01:52 Humulin R Insulin 100 Units/Ml 10ml Vial IVP 03/30/20 01:53 ON
[2020-03-30 01:10] LABS: Microscopic, Urine URINE MICROSCOPIC (MICROSCOPIC)
[2020-03-30 01:12] LABS: ABG Base Excess -3.4 mmol/L (-2.4-2.3); ABG HCO3 21.9 mmhg (22.0-26.0); ABG Oxygen Saturation 96 % (90-100); ABG PCO2 38.4 mmhg (35.0-45.0); ABG PH 7.37 mmol/L (7.35-7.45); ABG PO2 80.2 mmhg (80-100)
[2020-03-30 01:13] LABS: Allen's Test Y; Oxygen R/A %; Source R/R
[2020-03-30 01:14] LABS: Basophils # 0.1 K/mm3 (0-0.2); Basophils % 1.3 % (0.1-2.0); Eosinophils # 0.3 K/mm3 (0.0-0.4); Eosinophils % 3.9 % (0.1-12.0); Hematocrit 44.4 % (42.0-52.0); Lymphocytes % 27.5 % (10-50); Mean Corpuscular HGB Conc 31.5 g/dL (31.8-35.4); Mean Corpuscular Hemoglobin 28.9 pg (27.0-31.2); Mean Corpuscular Volume 91.7 fl (80-94); Mean Platelet Volume 9.3 fl (7.4-10.4); Monocytes # 0.3 K/mm3 (0.1-1.0); Monocytes % 3.6 % (1.7-9.3); Neutrophils # 4.7 K/mm3 (1.8-7.8); Neutrophils % 63.8 % (37.0-80.0); Platelet Count 310 K/mm3 (142-424); Red Blood Count 4.84 M/mm3 (4.60-6.20); Red Cell Distribution Width 13.9 % (11.5-17.5); White Blood Count 7.3 K/mm3 (4.8-10.8)
[2020-03-30 01:16] LABS: Appearance,Urine CLEAR (Clear); Bilirubin,Urine Negative (Negative); Blood, Urine 2+ (Negative); Color,Urine YELLOW (Yellow); Glucose,Urine (UA) 3+ (Negative); Ketones,Urine Negative (Negative); Leukocyte Esterase,Urine TRACE (Negative); Nitrate,Urine POSITIVE (Negative); PH,Urine 6.5 (5.0-8.5); Protein,Urine 2+ (Negative); Specific Gravity, Urine 1.015 (1.005-1.030); Urobilinogen,Urine 0.2 EU/dl (0.2)
[2020-03-30 01:22] LABS: WBC,Urine 50-100 #/hpf (0-3)
[2020-03-30 01:27] LABS: Acetone, Serum (Rapid) None Detected (None Detect); Amphetamine/Metha Screen,Urine Negative ng/ml (<1000); Barbiturates Screen,Urine Negative ng/ml (<200)
[2020-03-30 01:28] LABS: Benzodiazepines Screen,Urine Negative ng/ml (<200)
[2020-03-30 01:29] LABS: Cannabinoid Screen,Urine Negative ng/ml (<50); Cocaine Screen,Urine Negative ng/ml (<300)
[2020-03-30 01:30] LABS: Methadone Screen,Urine Negative ng/ml (<300)
[2020-03-30 01:31] LABS: Opiate Screen,Urine Negative ng/ml (<300); Phencyclidine Screen,Urine Negative ng/ml (<25)
[2020-03-30 01:33] LABS: Lactic Acid 2.7 mmol/L (0.7-2.1)
[2020-03-30 01:34] LABS: Alanine Aminotransferase 24 U/L (12-78); Albumin Level 4.3 g/dl (3.5-5.0); Albumin/Globulin Ratio 1.4 (1.1-1.8); Alkaline Phosphatase 230 U/L (38-126); Anion Gap 14.7 mEq/L (5-15); Aspartate Amino Transferase 29 U/L (17-59); Bilirubin,Total 0.3 mg/dl (0.2-1.3); Blood Urea Nitrogen 33 mg/dl (9-20); Calcium 9.3 mg/dl (8.4-10.2); Carbon Dioxide 24 mmol/L (22.0-30.0); Chloride 94 mmol/L (98-107); Creatinine Clearance Estimated 34 mL/min (50-200); Estimated Glomerular Filt Rate 32 ml/min (>60); GFR (African American) 39 ML/MIN (>60); Globulin 3.1 g/dL (1.3-3.2); Potassium 4.7 mmoL/L (3.5-5.1); Sodium 128 mmol/L (136-145); Total Protein,Serum 7.4 g/dl (6.3-8.2)
[2020-03-30 01:41] LABS: Glucose 850 mg/dl (74-100)
[2020-03-30 01:50] LABS: Troponin I 0.03 ng/ml (0.00-0.034)
[2020-03-30 01:55] LABS: Ammonia < 9 umol/L (9-30)
--- NOTE | 2020-03-30 02:37 | PC.NURSE ---
called and spoke with fidencio re: basil. no availability noted in [facility] for the 100ml pb. notified and will advise dr lima.
--- NOTE | 2020-03-30 03:21 | PC.NURSE ---
PT ARRIVED TO THE FLOOR VIA STRETCHER FROM ED @ [id number]
[2020-03-30 03:54] LABS: Reflex Lactic Add Lactic Reflex
--- NOTE | 2020-03-30 04:01 | PC.NURSE ---
Unable to do med rec. Pt with confusion.
[2020-03-30 04:57] LABS: Troponin I 0.02 ng/ml (0.00-0.034)
--- NOTE | 2020-03-30 05:01 | PC.NURSE ---
Pt was brought to floor on stretcher from the ER. He was in 4 point restraints in ER and had a staff member sitting with him. He continues in 4-point restraints with a staff member at his bedside (1:1). He vomited upon arrival to the floor. Face cleaned. He has dislodged 2 IVs since arrival to the floor. He remains agitated and unaware of safety for himself and surroundings. Unable to answer questions in admission r/t pt with diagnosis of delirium. He does not answer any questions. Thrashing in bed. Unable to get manual BP due to frequent jerking. Seizure pads are in place. He is voiding per f/c. Urine is yellow, clear. Restraints removed and skin reassessed frequently. Capillary refill <3 with positive radial and pedal pulses. Lisa-care provided per staff. He continues on an insulin gtt to bring glucose to 125. MD to be notified with glucose is 125 or below. He is NPO at this time.
[2020-03-30 05:26] LABS: POC Glucose,Bedside 269 (70-110)
[2020-03-30 05:26] LABS: POC Glucose,Bedside 365 (70-110)
[2020-03-30 06:32] LABS: Reflex Lactic (2 hrs) Add Lactic Reflex
[2020-03-30 06:48] LABS: POC Glucose,Bedside 72 (70-110)
--- NOTE | 2020-03-30 06:56 | PC.NURSE ---
Restraint order at this time per Dr. Baltazar.
--- NOTE | 2020-03-30 08:23 | HMH.HP ---
*Admission Date: 03/30/20 *Chief complaint: Seizure like activity, hyperglycemia *History of present illness: Mr. Huber is a 39-year-old gentleman with known history of poorly controlled type 1 diabetes, peripheral neuropathy, chronic urinary tract infection due to hypotonic bladder and enlarged prostate who presented to the ER after a seizure-like episode witnessed at home by his . She stated his seizures have been getting more frequent and he had one last night leading her to call EMS. Upon arrival by EMS they noted that his blood sugar read HI on the meter. He was brought to the ER for further assessment. On arrival he reportedly was conversant, alert, interacting with staff. Initial work-up showed concern for severe hypertension, tachycardia, hyperglycemia. He was not in DKA based on labs and had no fever on arrival. Decision was made to admit at that time for further management of his hyperglycemia. After that time however patient became more confused and agitated. He was placed in restraints due to his agitation and in condition consistent with which she was examined this morning. On interview this morning he is unable to answer questions, does not follow commands, is overtly confused with intermittent pulling at restraints trying to sit up and then laying back down. He remains hypertensive and continues to have fever even with treatment. Had very poor response to Ativan overnight. Patient pulled multiple IVs out due to his agitation. CT of his head was unremarkable aside from some mild atrophy which is stable. Blood cultures were obtained, antibiotics were initiated for known UTI and positive findings on UA. Blood sugar responded quite well to initial insulin. Is under seizure precautions with padding in the bed. There have been no episodes of seizure-like activity witnessed since admission. No notable fecal incontinence. Wise in place unable to assess urinary incontinence. Attempted to contact patient's this morning, her cell phone number goes straight to voicemail and states she is not receiving calls at this time. [facility] History I have reviewed the patient's past medical history: Yes Medical History: Reports:: Diabetes Mellitus Type 1, Hyperlipidemia, Hypertension, Renal Disease, Renal Insufficiency, Urinary Tract Infection Denies:: Cancer, Diabetes Mellitus Type 2, MRSA *Have you ever received a pneumonia vaccine?: No (Pt with diagnosis of delrium, unable to answer questions.) *Have you received a flu vaccine this season?: No (Pt with diagnosis of delrium, unable to answer questions.) Other Medical History: Reports: Anemia, Liver Disease, Other Laterality Cases: Bilateral: Myringotomy (Ear Tubes), Tonsillectomy Other Surgeries: Yes: No Previous Surgery (Tonsillectomy), Other Amputation: No Fractures: No - *Social History Smoking Status: Former smoker Tobacco Type: smokeless tobacco # Packs/Day (cigarettes): 0 Alcohol Intake: never Alcohol Intake Frequency:: holidays/special occasions only Substance Use Type: marijuana, opiates *Occupational Status:: disabled Housing: apartment Household Members: spouse, children *Travel in the last 8 weeks: None Family Hx:: Anemia, Bleeding Disorder, Cancer, Coronary Artery Disease, Diabetes, Heart Attack, Hyperlipidemia, Hypertension, Kidney Disease, Stroke, Tuberculosis Review of Systems - Review of Systems Review of systems:: unable to obtain - *Neurologic Reports confusion, Reports seizure-like activity, Denies localized weakness Meds Home Medications Medication Instructions Recorded Confirmed Type Gabapentin [Neurontin 800mg Tab] 800 mg PO QID 11/08/18 03/30/20 History Insulin Aspart [Novolog] 0 unit SQ DAILY 03/15/19 03/30/20 History Insulin Glargine,Hum.rec.anlog 20 units SQ HS 07/27/19 03/30/20 History [Lantus Solostar 100 Units/mL 3mL flexpen] Oxybutynin Chloride [Ditropan 5mg 5 mg PO BID 07/27/19 03/30/20 History tablet] carvediloL [Carvedi
[2020-03-30 08:37] LABS: Ethyl Alcohol < 10 mg/dl (0-10)
--- NOTE | 2020-03-30 08:47 | PC.NURSE ---
Nurse at bedside notifying MD at this time
[2020-03-30 10:02] LABS: Alanine Aminotransferase 25 U/L (12-78); Albumin Level 3.8 g/dl (3.5-5.0); Albumin/Globulin Ratio 1.2 (1.1-1.8); Alkaline Phosphatase 128 U/L (38-126); Anion Gap 9.7 mEq/L (5-15); Aspartate Amino Transferase 30 U/L (17-59); Bilirubin,Total 0.4 mg/dl (0.2-1.3); Blood Urea Nitrogen 32 mg/dl (9-20); Calcium 9.3 mg/dl (8.4-10.2); Carbon Dioxide 26 mmol/L (22.0-30.0); Chloride 107 mmol/L (98-107); Creatinine Clearance Estimated 34 mL/min (50-200); Estimated Glomerular Filt Rate 32 ml/min (>60); GFR (African American) 39 ML/MIN (>60); Globulin 3.1 g/dL (1.3-3.2); Glucose 220 mg/dl (74-100); Lactic Acid Follow up (RFLX 2) 2.3 mmol/L (0.7-2.1); Potassium 3.7 mmoL/L (3.5-5.1); Sodium 139 mmol/L (136-145); Total Protein,Serum 6.9 g/dl (6.3-8.2)
[2020-03-30 10:07] LABS: Creatine Kinase 189 U/L (55-170)
[2020-03-30 10:08] LABS: Magnesium 1.6 mg/dl (1.6-2.3)
[2020-03-30 10:19] LABS: Basophils # 0.1 K/mm3 (0-0.2); Basophils % 0.5 % (0.1-2.0); Eosinophils % 0.1 % (0.1-12.0); Hematocrit 39.9 % (42.0-52.0); Hemoglobin 13.2 g/dL (14.1-18.0); Lymphocytes % 7.1 % (10-50); Mean Corpuscular HGB Conc 33.1 g/dL (31.8-35.4); Mean Corpuscular Hemoglobin 29.1 pg (27.0-31.2); Mean Platelet Volume 8.2 fl (7.4-10.4); Monocytes # 0.4 K/mm3 (0.1-1.0); Monocytes % 2.9 % (1.7-9.3); Neutrophils # 12.5 K/mm3 (1.8-7.8); Neutrophils % 89.4 % (37.0-80.0); Platelet Count 324 K/mm3 (142-424); Red Blood Count 4.53 M/mm3 (4.60-6.20); Red Cell Distribution Width 14.1 % (11.5-17.5)
[2020-03-30 10:20] LABS: Troponin I 0.08 ng/ml (0.00-0.034)
[2020-03-30 10:21] LABS: MANUAL DIFFERENTIAL MANUAL DIFFERENTIAL (MANUAL DIFF)
[2020-03-30 10:43] LABS: POC Glucose,Bedside 223 (70-110)
[2020-03-30 11:11] LABS: Lymphocytes % 5 % (10-50); Monocytes % 3 % (2-9); Neutrophils % 92 % (42-76); Platelet Estimate Normal; RBC Morphology Normal; Total Cells Counted 100
[2020-03-30 11:35] LABS: Adenovirus,PCR Not Detected (NotDetected); Bordetella Pertussis Not Detected (NotDetected); Chlamydophila Pneumoniae, PCR Not Detected (NotDetected); Coronavirus 19, PCR Not Detected (NotDetected); Coronavirus 229E Not Detected (NotDetected); Coronavirus NL63 Not Detected (NotDetected); Coronavirus OC43 Not Detected (NotDetected); Coronovirus HKU1,PCR Not Detected (NotDetected); Human Metapneumovirus Not Detected (NotDetected); Influenza A, PCR Not Detected (NotDetected); Influenza AH1, 2009 Not Detected (NotDetected); Influenza AH1, PCR Not Detected (NotDetected); Influenza AH3,PCR Not Detected (NotDetected); Influenza B, PCR Not Detected (NotDetected); Mycoplasma Pneumoniae, PCR Not Detected (NotDected); Parainfluenza 1, PCR Not Detected (NotDetected); Parainfluenza 2, PCR Not Detected (NotDetected); Parainfluenza 3, PCR Not Detected (NotDetected); Parainfluenza 4, PCR Not Detected (NotDetected); Respiratory Syncytial Virus Not Detected (NotDetected); Rhinovirus/Enterovirus Not Detected (NotDetected)
--- NOTE | 2020-03-30 11:41 | HMH.PHAVTE ---
[facility] Pharmacy VTE Monitoring - Patient Demographics Admission date: 03/30/20 Report Date: 03/30/20 Time: 11:41 Allergies/Adverse Reactions: Patient Allergies Penicillins [PENICILLINS] Allergy (Severe, Verified 03/30/20 07:00) I-SHASTA Height: 1.63 m Weight: 53.977 kg Patient Problems: Current Active Problems Diabetes mellitus, insulin dependent (IDDM), uncontrolled (Chronic) UTI (urinary tract infection) (Chronic) Delirium due to general medical condition (Acute) Hypertensive emergency (Acute) Severe sepsis (Acute) Chronic kidney disease (CKD), stage III (moderate) (Acute) - VTE Risk Labs: VTE Related Lab Results Hgb 13.2 g/dL (14.1-18.0) L 03/30/20 09:43 Hct 39.9 % (42.0-52.0) L 03/30/20 09:43 Plt Count 324 K/mm3 (142-424) 03/30/20 09:43 BUN 32 mg/dl (9-20) H 03/30/20 09:43 Creatinine 2.30 mg/dl (0.66-1.25) H 03/30/20 09:43 Estimated Creat Clear 34 mL/min (50-200) 03/30/20 09:43 VTE Score: 2 VTE Risk Level: Very Low Risk - Prophylaxis VTE Prophylaxis Ordered?: Yes Types of VTE Prophylaxis: TEDS Knee High Location of Applied Device: Bilateral Lower Extremeties - VTE Diagnosis Confirmed Treatment or plan recommended: Continue Current Treatment
[2020-03-30 11:42] LABS: Coronavirus 19 IgG Antibody Negative (Negative); Coronavirus 19 IgM Antibody Negative (Negative)
--- NOTE | 2020-03-30 11:46 | HMH.DCSUM ---
General - General Admission date:: 03/30/20 Discharge date: 03/30/20 HPI HPI: Mr. Huber is a 39-year-old gentleman with known history of poorly controlled type 1 diabetes, peripheral neuropathy, chronic urinary tract infection due to hypotonic bladder and enlarged prostate who presented to the ER after a seizure-like episode witnessed at home by his . She stated his seizures have been getting more frequent and he had one last night leading her to call EMS. Upon arrival by EMS they noted that his blood sugar read HI on the meter. He was brought to the ER for further assessment. On arrival he reportedly was conversant, alert, interacting with staff. Initial work-up showed concern for severe hypertension, tachycardia, hyperglycemia. He was not in DKA based on labs and had no fever on arrival. Decision was made to admit at that time for further management of his hyperglycemia. After that time however patient became more confused and agitated. He was placed in restraints due to his agitation and in condition consistent with which she was examined this morning. On interview this morning he is unable to answer questions, does not follow commands, is overtly confused with intermittent pulling at restraints trying to sit up and then laying back down. He remains hypertensive and continues to have fever even with treatment. Had very poor response to Ativan overnight. Patient pulled multiple IVs out due to his agitation. CT of his head was unremarkable aside from some mild atrophy which is stable. Blood cultures were obtained, antibiotics were initiated for known UTI and positive findings on UA. Blood sugar responded quite well to initial insulin. Is under seizure precautions with padding in the bed. There have been no episodes of seizure-like activity witnessed since admission. No notable fecal incontinence. Wise in place unable to assess urinary incontinence. Attempted to contact patient's this morning, her cell phone number goes straight to voicemail and states she is not receiving calls at this time. Hospital Course Hospital Course: Admitted to medicine for further management of hyperglycemia, developed altered mental status, hyperthermia, hypertensive emergency between decision to admit and actual transfer to the floor. Attempts made to improve blood pressure and treat fever. Given patient's agitation, inability to follow commands, and worsening clinical status, decision was made to consult for transfer. Patient was accepted by medicine for transfer. At the time of transfer, patient's labs had changed with an increase in his white count from 7k to 14k. Culture still pending. COVID-19 testing performed with the following results: Antibodies for COVID-19 both negative for IgG and IgM. Respiratory PCR for COVID-19 negative as well (including all other pathogens tested for). Patient remains altered. No generalized seizure activity noted. Continued attempts at fever control with rectal Tylenol and aspirin. Continue broad-spectrum antibiotics with Invanz and vancomycin. Due to inability to safely perform LP, need for EEG, and generalized need for higher level of care, patient transferred. Appreciate 's assistance in caring for this patient. Objective Vital signs: Temp Pulse Resp BP Pulse Ox 103.1 F H 112 H 20 174/86 H 100 03/30/20 10:00 03/30/20 11:06 03/30/20 11:06 03/30/20 11:06 03/30/20 11:06 Narrative: - Constitutional moderate distress, average body habitus, combative, agitated - *Routine HEENT Exam Head: Present: normocephalic Eye: Present: EOMI, PERRL ENT: Present: mucous membranes moist - *Routine Neck Exam Present: supple. Absent: lymphadenopathy - *Routine Respiratory Exam Present: CTA bilaterally - *Routine Cardiovascular Exam Present: murmur, tachycardia - *Routine Abdominal Exam Present: soft, normoactive bowel sounds. Absent: tenderness, distended
--- NOTE | 2020-03-30 12:24 | PC.NURSE ---
Pt resting at this time, Pt still remains in restraints
--- NOTE | 2020-03-30 13:44 | PC.NURSE ---
0730- BP 197/146, HR 127, RR 16, o2 100%RA, Temp 101.8 0800- BP 210/138 Manual, HR 136, O2 100% RA 0845- Temp 103.4 Rectally, Dr Baltazar notified, given order to give patient additional 325mg of tylenol suppository 0900- Manual BP 210/130, HR 112, o2 100%, Temp 103.1, Patient given Labetolol 20mg IV, placed ice packs on patient and applied cool compresses for temperature 0910- Manual BP 190/110, patient given additional 20mg Labetolol IV 0918- Patient continues to be aggitated, pulling lines and tubes, patient under 1:1 observation with four points restraints in place, Dr Baltazar at bedside at this time, Patient given lorazepam 2mgIV per MD order 0920- Manual BP 190/100 HR 107, MD notified of persistent hypertension despite labetolol, ordered cardene gtt 0930- Several attempts made to start second peripheral IV on patient, required 4 staff members to start IV line related to patients aggitation and aggressive behavior while attempting to start additional line 1030- Cardene drip intiated at 5mg/hr, BP 181/107, HR 116 1045- BP 182/103 HR 120 1100- BP 196/92 HR 114, Cardene gtt titrated up to 7.5mg/hr 1115- BP 178/84 HR 120 1130- BP 181/77 HR 122 Cardene gtt titrated up to 10mg/hr, Rectal temp 103.4, given ASA suppository per MD order 1145- BP 180/71 HR 116 1200- BP 154/67 HR 118 1230- BP 149/61 HR 117 1300- BP 160/63 HR 117 1330- BP 166/68 HR 119 Temp 101.9 Rectal given scheduled tylenol suppository per emar 1400- BP 155/65 HR 117 Cardene gtt remains at 10mg/hr
--- NOTE | 2020-03-30 14:52 | PC.NURSE ---
[facility] bed control called for update on patient and states they will have a bed later today, will call back when bed is available
--- NOTE | 2020-03-30 15:01 | HMH.PHACONS ---
- Pharmacy Consult Date: 03/30/20 Time: 15:01 Referring provider: DR. HUGHES Reason for Consult:: VANCOMYCIN DOSING Allergies and ADEs:: Allergies Allergy/AdvReac Type Severity Reaction Status Date / Time Penicillins [PENICILLINS] Allergy Severe I-HIVES Verified 03/30/20 07:00 Home Medications:: Home Medications Medication Instructions Recorded Confirmed Type Gabapentin [Neurontin 800mg Tab] 800 mg PO QID 11/08/18 03/30/20 History Insulin Aspart [Novolog] 0 unit SQ DAILY 03/15/19 03/30/20 History Insulin Glargine,Hum.rec.anlog 20 units SQ HS 07/27/19 03/30/20 History [Lantus Solostar 100 Units/mL 3mL flexpen] Oxybutynin Chloride [Ditropan 5mg 5 mg PO BID 07/27/19 03/30/20 History tablet] carvediloL [Carvedilol 6.25mg Tab] 6.25 mg PO BID 07/27/19 03/30/20 History Ondansetron [Zofran 4mg ODT] 4 mg PO TIDP PRN #10 tab.rapdis 09/20/19 03/30/20 Rx Fluconazole [Diflucan 150mg tab] 150 mg PO DAILY 12/05/19 03/30/20 History Nabumetone 750 mg PO BID #30 tab 12/05/19 03/30/20 Rx Duloxetine HCl [Cymbalta 30mg 30 mg PO DAILY 03/30/20 03/30/20 History capsule] Height: 1.63 m Weight: 69.1 kg Laboratory Results:: Laboratory Results - last 24 hr 03/30/20 01:00: Urine Color Yellow, Urine Appearance Clear, Urine pH 6.5, Ur Specific [place] 1.015, Urine Protein 2+, Urine Glucose (UA) 3+, Urine Ketones Negative, Urine Blood 2+, Urine Nitrate Positive, Urine Bilirubin Negative, Urine Urobilinogen 0.2, Ur Leukocyte Esterase Trace, Urine WBC 50-100 03/30/20 01:00: WBC 7.3, RBC 4.84, Hgb 14.0 L, Hct 44.4, MCV 91.7, MCH 28.9, MCHC 31.5 L, RDW 13.9, Plt Count 310, MPV 9.3, Neut % (Auto) 63.8, Lymph % (Auto) 27.5, [place] % (Auto) 3.6, Eos % (Auto) 3.9, Baso % (Auto) 1.3, Neut # (Auto) 4.7, Lymph # (Auto) 2.0, [place] # (Auto) 0.3, Eos # (Auto) 0.3, Baso # (Auto) 0.1 03/30/20 01:00: Sodium 128 L, Potassium 4.7, Chloride 94 L, Carbon Dioxide 24, Anion Gap 14.7, BUN 33 H, Creatinine 2.30 H, Estimated Creat Clear 34, Estimated GFR 32 L, Est GFR ( Amer) 39 L, Glucose 850 H*, Calcium 9.3, Total Bilirubin 0.3, AST 29, ALT 24, Alkaline Phosphatase 230 H, Troponin I 0.03, Total Protein 7.4, Albumin 4.3, Globulin 3.1, Albumin/Globulin Ratio 1.4, Acetone Level None detected 03/30/20 01:00: Urine Opiates Screen Negative, Urine Methadone Screen Negative, Ur Barbituates Screen Negative, Ur Phencyclidine Scrn Negative, Ur Amphetamines Screen Negative, U Benzodiazepines Scrn Negative, Urine Cocaine Screen Negative, U Marijuana (THC) Screen Negative 03/30/20 01:00: Ammonia < 9 L 03/30/20 01:00: Lactate 2.7 H 03/30/20 01:00: Plasma/Serum Alcohol < 10 03/30/20 01:00: SARS-CoV-2 IgG Ab (Rapid) Negative, SARS-CoV-2 IgM Ab (Rapid) Negative 03/30/20 01:07: Specimen Source R/r, O2 % R/a, ABG pH 7.37, ABG pCO2 38.4, ABG pO2 80.2, ABG HCO3 21.9 L, ABG Total CO2 23.0, ABG O2 Saturation 96, ABG Base Excess -3.4 L, Lay[place] Test Y 03/30/20 03:43: POC Glucose 365 H* 03/30/20 04:20: Troponin I 0.02 03/30/20 04:20: Lactate 4.0 H 03/30/20 04:51: POC Glucose 269 H 03/30/20 06:31: POC Glucose 72 03/30/20 09:43: Magnesium 1.6, Troponin I 0.08 H 03/30/20 09:43: WBC 14.0 H D, RBC 4.53 L, Hgb 13.2 L, Hct 39.9 L, MCV 88.0, MCH 29.1, MCHC 33.1, RDW 14.1, Plt Count 324, MPV 8.2, Neut % (Auto) 89.4 H, Lymph % (Auto) 7.1 L, [place] % (Auto) 2.9, Eos % (Auto) 0.1, Baso % (Auto) 0.5, Neut # (Auto) 12.5 H, Lymph # (Auto) 1.0, [place] # (Auto) 0.4, Eos # (Auto) 0.0, Baso # (Auto) 0.1, Total Counted 100, Neutrophils % (Manual) 92 H, Lymphocytes % (Manual) 5 L, Monocytes % (Manual) 3, Platelet Estimate Normal, RBC Morphology Normal 03/30/20 09:43: Lactate 2.3 H 03/30/20 09:43: Total Creatine Kinase 189 H 03/30/20 09:43: Sodium 139, Potassium 3.7 D, Chloride 107, Carbon Dioxide 26, Anion Gap 9.7, BUN 32 H, Creatinine 2.30 H, Estimated Creat Clear 34, Estimated GFR 32 L, Est GFR ( Amer) 39 L, Glucose 220 H D, Calcium 9.3, Total Bilirubin 0.4, AST 30, ALT 25, Alkaline Phosphatase 128 H, [place]
--- NOTE | 2020-03-30 15:50 | PC.NURSE ---
BP 146/49, HR 119, Cardene gtt titrated down to 8mg/hr
--- NOTE | 2020-03-30 16:39 | PC.NURSE ---
patient restraints removed at 1615. he is currently asleep and resting fine. at this current time no signs of agitation and does not appear to be at risk for harm of self or others. patient remains 1:1
[2020-03-30 16:54] LABS: POC Glucose,Bedside 186 (70-110)
--- NOTE | 2020-03-30 16:54 | PC.NURSE ---
decreased gtt down to 6mg/hr
--- NOTE | 2020-03-30 19:18 | PC.NURSE ---
report given to jone
--- NOTE | 2020-03-30 20:24 | PC.NURSE ---
ems arived and took patient down to ems at 1802. in route to patient bp was 132/79 at 1828 so at that time decreased cardene gtt to 4mg an hour. at 1838 patient bp 136/77. at 1848 patient bp 135/76 so at that time decreased cardene gtt down to 2.5 mg/hour. arrived at at 1855. with no change to bp. took patient in to new room at and disconnected from gtt at that time. ems given report to nurse taking over care. patient arrived stable with no changes.
[2020-04-08 14:49] LABS: POC Glucose,Bedside > 600 (70-110)
== END 2020-03-30 18:02 | disposition short-term general hospital (02) | DRG 637 ==
LOC: ER 02:28 → 2ND 03:29
PROVIDERS: Admitting Provider Internal Medicine Adolescent Medicine; Emergency Provider Emergency Medicine; PCP Internal Medicine Adolescent Medicine; Visit Provider Internal Medicine Adolescent Medicine
DX: E10.65 Type 1 diabetes mellitus with hyperglycemia (principal); A41.9 Sepsis, unspecified organism; R65.20 Severe sepsis without septic shock; R56.9 Unspecified convulsions; I16.1 Hypertensive emergency; E87.1 Hypo-osmolality and hyponatremia; N39.0 Urinary tract infection, site not specified; Z79.4 Long term (current) use of insulin; I12.9 Hypertensive chronic kidney disease with stage 1 through stage 4 chronic kidney disease, or unspecified chronic kidney disease; E10.22 Type 1 diabetes mellitus with diabetic chronic kidney disease; N18.3 Chronic kidney disease, stage 3 (moderate)
CPT/HCPCS: 36415; 70450; 71045; 80053; 80305; 81001; 82009; 82140; 82550; 82803; 82962; 83605; 83735; 84484; 85007; 85025; 86328; 87040; 87086; 87088; 87186; 87581; 87633; 87798; 93005; 96365; 96367; 96375; 99285; J1335; J1450; J2405; J3370

== ENCOUNTER 2020-04-14 18:20 | Emergency (ER) | payer MEDICARE, MEDICAID, SELFPAY ==
[2020-04-14 18:34] VITALS: BP 148/94; PULSE 69; RESP 18; TEMP 37.1; O2SAT 99; BMI 21.9
[2020-04-14 18:48] VITALS: BP 148/94; PULSE 69; RESP 18; TEMP 37.1; O2SAT 99; BMI 21.9
--- NOTE | 2020-04-14 18:51 | HMH.EDUTC ---
[facility] [place] Clinical Impression: UTI (urinary tract infection) Qualifiers: Urinary tract infection type: site unspecified Hematuria presence: with hematuria Qualified Code(s): N39.0 - Urinary tract infection, site not specified; R31.9 - Hematuria, unspecified Disposition: Home, Self-Care Condition on Discharge: Good Instructions: DI for Urinary Tract Infection (UTI), Ciprofloxacin, Blood in Urine, DI for Hematuria Additional Instructions: Perform self cath as was ordered previously by your urologist if needed or unable to urinate Straight to ER if any worsening of symptoms, unable to urinate, fever, chills or any life threatening symptoms Continue to take medication CIPRO for UTI as prescribed by your family doctor yesterday Return if needed Call Urology tomorrow and follow up immediately if symptoms still present Make sure that you are drinking plenty of fluids Referrals: Miriam Hairston APRN [Primary Care Provider] - As needed Time of Disposition: 19:05 Medical Decision Making - Michael Inquiry Pt receiving controlled substance: No Michael was queried for this patient: No Vital Signs: 04/14/20 18:34 Temperature 98.8 F Temperature Source Oral Pulse Rate [Radial] 69 Respiratory Rate 18 Blood Pressure [Right Arm] 148/94 H Blood Pressure Mean [Right Arm] 112 Blood Pressure Source [Right Arm] Automatic Cuff Blood Pressure Position [Right Arm] Sitting 02 Sat by Pulse Oximetry 99 Oxygen Delivery Method Room Air - Lab Data Lab results reviewed: Yes: I reviewed the patient's lab results. Medical Decision Narrative: UA results discussed with patient and recommended transfer back to ED for more extensive testing, CT etc and patient declined Recommended to anchor mayer cath and have patient follow up with Urology tomorrow if no improvement and patient declined States that he has stuff at home to self cath as advised by Urology when he has trouble urinating due to previous prostate surgery. Denies abdominal pain denies fever, denies flu like symptoms. Patient advised to continue to take Cipro as prescribed by PCP yesterday for UTI and follow up immediately with urology at and if symptoms worsen, go straight to ER for further evaluation and treatment and patient agreed [facility] [place] - General Stated complaint: Difficulty urinating, blood in urine Time Seen by Provider: 04/14/20 18:52 Mode of Arrival: Ambulatory Source of Information: Patient Limitations: No Limitations Description of Symptoms (Recalled from Triage Doc. by RN): States he can't urinate and when he does it has blood like when he has a kidney or bladder infection - History of Present Illness Provider Complaint: Patient states that he seen family doctor yesterday and they checked his urine and he had a UTI and started him on Cipro States that he has had two doses and this evening he noticed he was having burning with urination and urine had blood in it States that he had prostate surgery in January and had a mayer that got removed and is suppose to self cath at home if he has any difficulty urinating but hasnt done any self cath. States that he wanted to have his urine checked again to see if infection got worse - Related Data Home Medications Medication Instructions Recorded Confirmed Insulin Glargine,Hum.rec.anlog 20 units SQ HS 07/27/19 03/30/20 [Lantus Solostar 100 Units/mL 3mL flexpen] Oxybutynin Chloride [Ditropan 5mg 5 mg PO BID 07/27/19 03/30/20 tablet] carvediloL [Carvedilol 6.25mg Tab] 6.25 mg PO BID 07/27/19 03/30/20 Previous Rx's Medication Instructions Recorded Acetaminophen [Acetaminophen 650mg 975 mg RC Q6H supp.rect 03/30/20 suppository] Ertapenem Sodium [Invanz 1gm Vial] 1 gm IV Q24H vial 03/30/20 Fluconazole in NaCl,Iso-Osm 100 mg IV Q24H piggyback 03/30/20 [Diflucan 100mg/50mL IVPB] Insulin Lispro [HumaLOG 100 0 unit SQ Q6H ml 03/30/20 units/mL 3mL vial (SSI)] LORazepam [Ativan 2mg/mL vial] 2 mg IV Q6HP
[2020-04-14 18:53] LABS: Apearance,Urine Clear (Clear); Color,Urine Red (Yellow); Protein,Urine 3+ (Negative)
[2020-04-14 18:54] LABS: Bilirubin,Urine 2+ (Negative); Blood, Urine 3+ (Negative); Glucose,Urine (UA) 500 (Negative); Ketones,Urine 15 (Negative); UTC Leukocyte Esterase,Urine Trace (Negative); UTC Nitrate,Urine Positive (Negative); Urobilinogen,Urine 1 EU/dl (0.2)
[2020-04-14 19:20] VITALS: BP 148/94; PULSE 69; RESP 18; TEMP 37.1; O2SAT 99
== END 2020-04-14 19:25 | disposition home or self-care (01) ==
PROVIDERS: Emergency Provider Nurse Practitioner; PCP Nurse Practitioner Family
DX: N30.01 Acute cystitis with hematuria (principal); E10.9 Type 1 diabetes mellitus without complications; Z79.4 Long term (current) use of insulin; I10 Essential (primary) hypertension; E78.5 Hyperlipidemia, unspecified; Z87.891 Personal history of nicotine dependence; N18.3 Chronic kidney disease, stage 3 (moderate); Z79.899 Other long term (current) drug therapy
CPT/HCPCS: 81003; 87086; 87088; 87186; 99201

== ENCOUNTER → 2020-05-27 14:40 | Outpatient (CLI) | payer MEDICARE, MEDICAID, SELFPAY ==
[2020-05-27 15:25] LABS: Basophils # 0.1 K/mm3 (0-0.2); Eosinophils # 0.3 K/mm3 (0.0-0.4); Eosinophils % 4.2 % (0.1-12.0); Hematocrit 42.2 % (42.0-52.0); Hemoglobin 13.6 g/dL (14.1-18.0); Lymphocytes % 30.2 % (10-50); Mean Corpuscular HGB Conc 32.3 g/dL (31.8-35.4); Mean Corpuscular Hemoglobin 29.1 pg (27.0-31.2); Mean Corpuscular Volume 90.2 fl (80-94); Mean Platelet Volume 8.2 fl (7.4-10.4); Monocytes # 0.3 K/mm3 (0.1-1.0); Monocytes % 4.4 % (1.7-9.3); Neutrophils % 60.2 % (37.0-80.0); Platelet Count 327 K/mm3 (142-424); Red Blood Count 4.68 M/mm3 (4.60-6.20); Red Cell Distribution Width 13.6 % (11.5-17.5); White Blood Count 6.6 K/mm3 (4.8-10.8)
[2020-05-27 16:01] LABS: Alanine Aminotransferase 34 U/L (12-78); Albumin Level 3.6 g/dl (3.5-5.0); Albumin/Globulin Ratio 1.2 (1.1-1.8); Alkaline Phosphatase 177 U/L (38-126); Anion Gap 13.5 mEq/L (5-15); Aspartate Amino Transferase 34 U/L (17-59); Bilirubin,Total 0.5 mg/dl (0.2-1.3); Blood Urea Nitrogen 29 mg/dl (9-20); Calcium 9.2 mg/dl (8.4-10.2); Carbon Dioxide 24 mmol/L (22.0-30.0); Chloride 108 mmol/L (98-107); Estimated Glomerular Filt Rate 34 ml/min (>60); GFR (African American) 41 ML/MIN (>60); Glucose 72 mg/dl (74-100); Potassium 4.5 mmoL/L (3.5-5.1); Sodium 141 mmol/L (136-145); Total Protein,Serum 6.6 g/dl (6.3-8.2)
== END ==
PROVIDERS: Visit Provider Nurse Practitioner Family
DX: R15.9 Full incontinence of feces (principal); N39.0 Urinary tract infection, site not specified; R10.32 Left lower quadrant pain
CPT/HCPCS: 36415; 80053; 85025

== ENCOUNTER 2020-06-11 12:10 | Emergency (ER) | payer MEDICARE, MEDICAID, SELFPAY ==
[2020-06-11 12:27] VITALS: BP 177/108; PULSE 97; RESP 20; TEMP 36.8; O2SAT 99; BMI 25.7
[2020-06-11 13:28] VITALS: BP 173/100; PULSE 92; O2SAT 100
--- NOTE | 2020-06-11 14:16 | CT_ITS ---
PROCEDURE: CT ABDOMEN PELVIS WO CON CLINICAL INDICATION: abd pain Left lower quadrant abdominal pain with nausea vomiting and diarrhea COMPARISON: CT CT ABDOMEN PELVIS WO CON from 09/27/2019 TECHNIQUE: Axial images obtained with sagittal and coronal reformats. All CT scans at the facility use one or more dose reduction, viz: automated exposure control, ma/kV adjustment per patient size (including targeted exams where dose is matched to indication, i.e. head), or iterative reconstruction technique. FINDINGS: LOWER THORAX: No acute finding ABDOMEN & PELVIS: Liver has an unremarkable appearance. There is a gallstone present. The spleen and adrenal glands and pancreas have an unremarkable unenhanced appearance. There is mild vascular calcification of the renal arteries and mesenteric vessels. There is mild diffuse thickening of the urinary bladder wall and there is mild prominence of both renal pelvocaliceal systems and ureters. The ureteral ectasia has slightly improved compared to the previous exam. No definite ureteral calculi. Mildly prominent retroperitoneal lymph nodes are present not significantly changed. No intestinal obstruction or free air. No evidence of appendicitis or diverticulitis. There remains prominent low-density changes within the anterior aspect of the prostate with enlargement similar to the previous exam. Scattered small lymph nodes are present in the inguinal regions on both sides. No evidence of diverticulitis. No acute bony anomalies. There is a tiny umbilical hernia containing fat IMPRESSION: 1. Persistent thickening of the urinary bladder wall with bilateral ectasia of the ureters and renal pelves. No definite ureteral calculus 2. Persistent enlarged prostate gland with hypodense changes anteriorly 3. Mild retroperitoneal adenopathy 4. Cholelithiasis Dictated b Layton Pires MD 06/11/2020 15:37 Layton Pires MD in [place] 06/11/2020 15:37
[2020-06-11 14:18] VITALS: BP 175/107; PULSE 85; O2SAT 99
[2020-06-11 14:18] LABS: Basophils # 0.1 K/mm3 (0-0.2); Eosinophils # 0.2 K/mm3 (0.0-0.4); Hematocrit 40.2 % (42.0-52.0); Hemoglobin 14.7 g/dL (14.1-18.0); Lymphocytes # 2.4 K/mm3 (0.7-4.5); Lymphocytes % 33.5 % (10-50); Mean Corpuscular HGB Conc 36.6 g/dL (31.8-35.4); Mean Corpuscular Volume 87.4 fl (80-94); Mean Platelet Volume 8.7 fl (7.4-10.4); Monocytes # 0.5 K/mm3 (0.1-1.0); Neutrophils % 55.6 % (37.0-80.0); Platelet Count 305 K/mm3 (142-424); Red Cell Distribution Width 13.1 % (11.5-17.5); White Blood Count 7.2 K/mm3 (4.8-10.8)
[2020-06-11 14:23] LABS: Alanine Aminotransferase 24 U/L (12-78); Albumin Level 3.7 g/dl (3.5-5.0); Albumin/Globulin Ratio 1.1 (1.1-1.8); Alkaline Phosphatase 155 U/L (38-126); Anion Gap 15.1 mEq/L (5-15); Aspartate Amino Transferase 34 U/L (17-59); Bilirubin,Total 0.3 mg/dl (0.2-1.3); Blood Urea Nitrogen 35 mg/dl (9-20); Calcium 9.5 mg/dl (8.4-10.2); Carbon Dioxide 23 mmol/L (22.0-30.0); Chloride 105 mmol/L (98-107); Creatinine Clearance Estimated 37 mL/min (50-200); Estimated Glomerular Filt Rate 25 ml/min (>60); GFR (African American) 30 ML/MIN (>60); Globulin 3.4 g/dL (1.3-3.2); Glucose 153 mg/dl (74-100); Potassium 4.1 mmoL/L (3.5-5.1); Sodium 139 mmol/L (136-145); Total Protein,Serum 7.1 g/dl (6.3-8.2)
[2020-06-11 14:24] LABS: Acetone, Serum (Rapid) None Detected (None Detect)
--- NOTE | 2020-06-11 14:48 | PC.NURSE ---
pt going to CT
[2020-06-11 14:50] LABS: Microscopic, Urine URINE MICROSCOPIC (MICROSCOPIC)
[2020-06-11 14:52] LABS: Appearance,Urine CLOUDY (Clear); Bilirubin,Urine Negative (Negative); Blood, Urine 2+ (Negative); Color,Urine YELLOW (Yellow); Glucose,Urine (UA) 1+ (Negative); Ketones,Urine Negative (Negative); Leukocyte Esterase,Urine 1+ (Negative); Nitrate,Urine Negative (Negative); PH,Urine 5.5 (5.0-8.5); Protein,Urine 3+ (Negative); Specific Gravity, Urine 1.025 (1.005-1.030); Urobilinogen,Urine 0.2 EU/dl (0.2)
[2020-06-11 15:00] LABS: Bacteria,Urine 2+ /lpf; WBC,Urine 20-50 #/hpf (0-3)
[2020-06-11 15:01] LABS: Fine Granular Casts,Urine Occasional #/lpf (0)
[2020-06-11 15:19] LABS: POC Glucose,Bedside 145 (70-110)
--- NOTE | 2020-06-11 16:07 | HMH.EDGENADL ---
ED Disposition Clinical Impression: UTI (urinary tract infection) Qualifiers: Urinary tract infection type: acute cystitis Hematuria presence: without hematuria Qualified Code(s): N30.00 - Acute cystitis without hematuria Disposition: Home, Self-Care Condition on Discharge: Fair Instructions: DI for Urinary Tract Infection (UTI) Additional Instructions: urinalysis shows urinary tract infection with 1+ leukocyte esterase as well as 2+ bacteria; CT of the abdomen and pelvis showed no acute findings; plan is to discharge you home on an antibiotic in this case Bactrim DS p.o. twice daily x7 days. Please follow up as needed Prescriptions: Sulfamethoxazole/Trimethoprim [Bactrim DS tablet] 1 each PO BID 7 Days #14 tab Transmission Status: Pending to [id number] Referrals: Miriam Hairston APRN [Primary Care Provider] - Time of Disposition: 16:14 - Critical Care Critical Care Time: No Attestation: On 06/11/20, the high probability of a clinically significant, sudden or life threatening deterioration of the following system(s) required my full and direct attention, intervention and personal management. The time I documented below is in addition to time spent performing reported procedures but includes the following listed in this critical care notation. Medical Decision Making - Medical Records Medical records reviewed: Yes: I reviewed the patient's medical records. MR Comment: Is here with lower abdominal pain and nausea, has h/o type 1 diabetes. The patient has a normal CBC electrolytes show renal failure with a BUN of 35 and creatinine of 2.9 these are chronic; urinalysis shows urinary tract infection with 1+ leukocyte esterase as well as 2+ bacteria; CT of the abdomen and pelvis showed no acute findings; plan is to discharge patient home on an antibiotic in this case Bactrim DS p.o. twice daily x7 days - Michael Inquiry Pt receiving controlled substance: No Vital Signs: 06/11/20 12:27 06/11/20 13:28 06/11/20 14:18 Temperature 98.3 F Temperature Source Oral Pulse Rate [Radial] 97 H 92 H 85 Respiratory Rate 20 Blood Pressure [Right Arm] 177/108 H 173/100 H 175/107 H Blood Pressure Mean [Right Arm] 131 124 129 Blood Pressure Source [Right Arm] Automatic Cuff Automatic Cuff Automatic Cuff Blood Pressure Position [Right Arm] Sitting Supine Supine 02 Sat by Pulse Oximetry 99 100 99 Oxygen Delivery Method Room Air Room Air Room Air - Lab Data Lab results reviewed: Yes: I reviewed the patient's lab results. Lab Results 06/11/20 12:27: POC Glucose 145 H 06/11/20 13:16: WBC 7.2, RBC 4.60, Hgb 14.7, Hct 40.2 L, MCV 87.4, MCH 32.0 H, MCHC 36.6 H, RDW 13.1, Plt Count 305, MPV 8.7, Neut % (Auto) 55.6, Lymph % (Auto) 33.5, [place] % (Auto) 7.0, Eos % (Auto) 3.0, Baso % (Auto) 1.0, Neut # (Auto) 4.0, Lymph # (Auto) 2.4, [place] # (Auto) 0.5, Eos # (Auto) 0.2, Baso # (Auto) 0.1 06/11/20 13:16: Sodium 139, Potassium 4.1, Chloride 105, Carbon Dioxide 23, Anion Gap 15.1 H, BUN 35 H, Creatinine 2.90 H, Estimated Creat Clear 37, Estimated GFR 25 L, Est GFR ( Amer) 30 L, Glucose 153 H, Calcium 9.5, Total Bilirubin 0.3, AST 34, ALT 24, Alkaline Phosphatase 155 H, Total Protein 7.1, Albumin 3.7, Globulin 3.4 H, Albumin/Globulin Ratio 1.1, Acetone Level None detected 06/11/20 14:45: Urine Color Yellow, Urine Appearance Cloudy, Urine pH 5.5, Ur Specific [place] 1.025, Urine Protein 3+, Urine Glucose (UA) 1+, Urine Ketones Negative, Urine Blood 2+, Urine Nitrate Negative, Urine Bilirubin Negative, Urine Urobilinogen 0.2, Ur Leukocyte Esterase 1+ A, Urine RBC 5-10, Urine WBC 20-50, Ur Squamous Epith Cells 3-5, Urine Bacteria 2+, Fine Granular Casts Occasional Result diagrams: 06/11/20 13:16 06/11/20 13:16 Orders (Tests/Meds): ED MEDICATIONS Discontinued Medications Generic Name Dose Route Start Last Admin Trade Name Freq PRN Reason Stop Dose Admin Sodium Chloride 1,000 mls @ 999 mls/hr 06/11/20 14:30 06/11/20
[2020-06-11 16:41] VITALS: BP 175/107; PULSE 85; RESP 18; TEMP 36.7; O2SAT 99
== END 2020-06-11 16:43 | disposition home or self-care (01) ==
PROVIDERS: Emergency Provider Emergency Medicine; PCP Nurse Practitioner Family
DX: N30.00 Acute cystitis without hematuria (principal); E78.5 Hyperlipidemia, unspecified; I10 Essential (primary) hypertension; Z87.891 Personal history of nicotine dependence; Z79.899 Other long term (current) drug therapy; Z88.0 Allergy status to penicillin
CPT/HCPCS: 74176; 80053; 81001; 82009; 82962; 85025; 87086; 87088; 87186; 96365; 96374; 96375; 99284; J2405

== ENCOUNTER → 2020-09-10 11:48 | Outpatient (CLI) | payer OTHER, SELFPAY ==
--- NOTE | 2020-09-10 11:55 | XR_ITS ---
PROCEDURE: XR KNEE RT 3V CLINICAL INDICATION: INSTABILITY OF RT KNEE JOINT COMPARISON: CR XR KNEE RT 3V from 07/19/2019 CR XR KNEE LT 3V from 11/01/2019 FINDINGS: No fracture or dislocation. No lytic or blastic change. There is normal mineralization. The joint spaces are well-preserved. No significant degenerative/arthritic changes. No erosive changes evident. Other findings:There is generalized vascular calcification. IMPRESSION: No acute findings. Dictated by: Layton Pires MD 09/10/2020 14:25 Layton Pires MD in [place] 09/10/2020 14:25
== END ==
PROVIDERS: PCP Nurse Practitioner Family; Visit Provider Nurse Practitioner Family
DX: M25.361 Other instability, right knee (principal)
CPT/HCPCS: 73562

== ENCOUNTER 2020-09-21 14:11 | Emergency (ER) | payer OTHER, SELFPAY ==
[2020-09-21] VITALS (9 sets, daily range): BP systolic 157–197; BP diastolic 91–129; PULSE 79–104; RESP 11–20; TEMP 36.6–36.8; O2SAT 96–99; BMI 29.0
--- NOTE | 2020-09-21 14:32 | XR_ITS ---
PROCEDURE: XR CHEST 2V CLINICAL HISTORY: rt rib pain COMPARISON: CR XR CHEST AP from 12/17/2019 CR XR CHEST PORTABLE from 02/12/2020 CR XR CHEST PORTABLE from 03/30/2020 FINDINGS: The cardiomediastinal silhouette and pulmonary vascularity are within normal limits. The lungs are clear without infiltrates, suspicious nodules, or pleural effusions. No acute bony abnormalities. IMPRESSION: No acute findings. Dictated by: Layton Pires MD 09/21/2020 14:57 Layton Pires MD in [place] 09/21/2020 14:57
--- NOTE | 2020-09-21 14:41 | PC.NURSE ---
Called for lab to come draw labs on patient. IV was succesfull and flushes well, but wont draw.
--- NOTE | 2020-09-21 14:49 | PC.NURSE ---
Pt returned from rad. lab at bedside
[2020-09-21 15:06] LABS: Basophils # 0.1 K/mm3 (0-0.2); Basophils % 0.7 % (0.1-2.0); Eosinophils # 0.5 K/mm3 (0.0-0.4); Eosinophils % 4.1 % (0.1-12.0); Hematocrit 47.3 % (42.0-52.0); Hemoglobin 15.2 g/dL (14.1-18.0); Lymphocytes # 2.5 K/mm3 (0.7-4.5); Lymphocytes % 22.2 % (10-50); Mean Corpuscular HGB Conc 32.2 g/dL (31.8-35.4); Mean Corpuscular Hemoglobin 28.6 pg (27.0-31.2); Mean Corpuscular Volume 88.7 fl (80-94); Mean Platelet Volume 8.6 fl (7.4-10.4); Monocytes # 0.5 K/mm3 (0.1-1.0); Monocytes % 4.2 % (1.7-9.3); Neutrophils # 7.7 K/mm3 (1.8-7.8); Neutrophils % 68.8 % (37.0-80.0); Platelet Count 291 K/mm3 (142-424); Red Blood Count 5.33 M/mm3 (4.60-6.20); Red Cell Distribution Width 15.1 % (11.5-17.5); White Blood Count 11.1 K/mm3 (4.8-10.8)
[2020-09-21 15:08] LABS: Chloride 106 mmol/L (98-107); Sodium 138 mmol/L (136-145)
[2020-09-21 15:09] LABS: Potassium 4.8 mmoL/L (3.5-5.1)
[2020-09-21 15:11] LABS: Alanine Aminotransferase 21 U/L (12-78); Albumin Level 3.7 g/dl (3.5-5.0); Alkaline Phosphatase 147 U/L (38-126); Anion Gap 12.8 mEq/L (5-15); Aspartate Amino Transferase 26 U/L (17-59); Bilirubin,Direct 0.1 mg/dl (0.0-0.4); Bilirubin,Indirect 0.4 mg/dL (0.0-0.9); Bilirubin,Total 0.5 mg/dl (0.2-1.3); Bilirubin,Unconjugated 0.4 mg/dL (0.0-1.1); Blood Urea Nitrogen 36 mg/dl (9-20); Carbon Dioxide 24 mmol/L (22.0-30.0); Creatinine Clearance Estimated 41 mL/min (50-200); Estimated Glomerular Filt Rate 25 ml/min (>60); GFR (African American) 30 ML/MIN (>60); Total Protein,Serum 6.8 g/dl (6.3-8.2)
[2020-09-21 15:12] LABS: Calcium 9.3 mg/dl (8.4-10.2); Glucose 284 mg/dl (74-100)
--- NOTE | 2020-09-21 15:17 | HMH.EDGENADL ---
ED Disposition Clinical Impression: Atypical chest pain Disposition: Home, Self-Care Condition on Discharge: Fair Instructions: DI for Atypical Chest Pain Additional Instructions: Checked your chest x-ray EKG and labs and no acute changes are noted, follow-up as needed Referrals: Miriam Hairston APRN [Primary Care Provider] - Time of Disposition: 17:22 - Critical Care Critical Care Time: No Attestation: On 09/21/20, the high probability of a clinically significant, sudden or life threatening deterioration of the following system(s) required my full and direct attention, intervention and personal management. The time I documented below is in addition to time spent performing reported procedures but includes the following listed in this critical care notation. Medical Decision Making - Medical Records Medical records reviewed: Yes: I reviewed the patient's medical records. MR Comment: 39-year-old male here with a complaint of chest pain c/o sharp rt side rib pain x 4 days. states pain worse with inspiration and movement. pt denies any injury. pt with hx of IDDM. Patient's labs and they showed no acute changes he does have renal failure with a BUN of 36 and creatinine of 2.8 chest x-ray shows no acute findings ketones are negative and serum vital signs are stable he has been given a liter of IV fluids plan is to discharge him home and advised follow-up as needed - Michael Inquiry Pt receiving controlled substance: No Vital Signs: 09/21/20 14:12 09/21/20 15:12 09/21/20 15:30 Temperature 98.2 F Temperature Source Oral Pulse Rate [Radial] 104 H 87 86 Respiratory Rate 20 18 Blood Pressure [Right Radial Artery] 184/127 H 157/91 H 171/105 H Blood Pressure Mean [Right Radial Artery] 146 113 127 Blood Pressure Source [Right Radial Artery] Automatic Cuff Automatic Cuff Blood Pressure Position [Right Radial Artery] Sitting Sitting Sitting 02 Sat by Pulse Oximetry 98 97 96 Oxygen Delivery Method Room Air Room Air Room Air 09/21/20 16:00 09/21/20 16:30 09/21/20 17:00 Temperature Temperature Source Pulse Rate [Radial] 88 84 79 Respiratory Rate 11 L 15 15 Blood Pressure [Right Radial Artery] 187/129 H 192/114 H 174/102 H Blood Pressure Mean [Right Radial Artery] 148 140 126 Blood Pressure Source [Right Radial Artery] Automatic Cuff Automatic Cuff Automatic Cuff Blood Pressure Position [Right Radial Artery] Sitting Sitting Sitting 02 Sat by Pulse Oximetry 99 99 99 Oxygen Delivery Method Room Air Room Air Room Air - Lab Data Lab results reviewed: Yes: I reviewed the patient's lab results. Lab Results 09/21/20 14:50: WBC 11.1 H, RBC 5.33, Hgb 15.2, Hct 47.3, MCV 88.7, MCH 28.6, MCHC 32.2, RDW 15.1, Plt Count 291, MPV 8.6, Neut % (Auto) 68.8, Lymph % (Auto) 22.2, [place] % (Auto) 4.2, Eos % (Auto) 4.1, Baso % (Auto) 0.7, Neut # (Auto) 7.7, Lymph # (Auto) 2.5, [place] # (Auto) 0.5, Eos # (Auto) 0.5 H, Baso # (Auto) 0.1 09/21/20 14:50: Sodium 138, Potassium 4.8, Chloride 106, Carbon Dioxide 24, Anion Gap 12.8, BUN 36 H, Creatinine 2.90 H, Estimated Creat Clear 41, Estimated GFR 25 L, Est GFR ( Amer) 30 L, Glucose 284 H, Calcium 9.3, Total Bilirubin 0.5, Direct Bilirubin 0.1, Conjugated Bilirubin 0.0, Indirect Bilirubin 0.4, Unconjugated Bilirubin 0.4, AST 26, ALT 21, Alkaline Phosphatase 147 H, Troponin I 0.02, Total Protein 6.8, Albumin 3.7 09/21/20 15:36: Urine Color Yellow, Urine Appearance Cloudy, Urine pH 6.0, Ur Specific [place] 1.025, Urine Protein 2+, Urine Glucose (UA) 2+, Urine Ketones Negative, Urine Blood 1+, Urine Nitrate Negative, Urine Bilirubin Negative, Urine Urobilinogen 0.2, Ur Leukocyte Esterase Trace, Urine RBC Tntc, Urine WBC 5-10, Ur Squamous Epith Cells 3-5, Amorphous Sediment 1+, Urine Bacteria None 09/21/20 16:00: WBC 11.1 H, RBC 5.31, Hgb 14.7, Hct 47.4, MCV 89.3, MCH 27.8, MCHC 31.1 L, RDW 15.0, Plt Count 291, MPV 8.6, Neut % (Auto) 69.7, Lymph % (Auto) 21.4, [place] % (Auto) 4.5, Eos % (Aut
--- NOTE | 2020-09-21 15:21 | ECG_ITS ---
APPROVED REPORT Exam: Resting ECG HR:86 bpm ECG Measurements Heart Rate 86 AXES AL 140 P 61 QRSd 76 QRS 12 QT 378 T -7 QTc 452 Conclusion Normal sinus rhythm Nonspecific T wave abnormality Abnormal ECG Electronically signed by : Sid Grossman, 09/21/2020 21:05:41
[2020-09-21 15:23] LABS: Troponin I 0.02 ng/ml (0.00-0.034)
--- NOTE | 2020-09-21 16:00 | PC.NURSE ---
lab at bedside
[2020-09-21 16:07] LABS: Microscopic, Urine URINE MICROSCOPIC (MICROSCOPIC)
[2020-09-21 16:10] LABS: Basophils # 0.1 K/mm3 (0-0.2); Basophils % 0.8 % (0.1-2.0); Eosinophils # 0.4 K/mm3 (0.0-0.4); Eosinophils % 3.5 % (0.1-12.0); Hematocrit 47.4 % (42.0-52.0); Hemoglobin 14.7 g/dL (14.1-18.0); Lymphocytes # 2.4 K/mm3 (0.7-4.5); Lymphocytes % 21.4 % (10-50); Mean Corpuscular HGB Conc 31.1 g/dL (31.8-35.4); Mean Corpuscular Hemoglobin 27.8 pg (27.0-31.2); Mean Corpuscular Volume 89.3 fl (80-94); Mean Platelet Volume 8.6 fl (7.4-10.4); Monocytes # 0.5 K/mm3 (0.1-1.0); Monocytes % 4.5 % (1.7-9.3); Neutrophils # 7.8 K/mm3 (1.8-7.8); Neutrophils % 69.7 % (37.0-80.0); Platelet Count 291 K/mm3 (142-424); Red Blood Count 5.31 M/mm3 (4.60-6.20); White Blood Count 11.1 K/mm3 (4.8-10.8)
[2020-09-21 16:17] LABS: Alanine Aminotransferase 23 U/L (12-78); Albumin Level 3.8 g/dl (3.5-5.0); Albumin/Globulin Ratio 1.3 (1.1-1.8); Alkaline Phosphatase 165 U/L (38-126); Anion Gap 11.5 mEq/L (5-15); Aspartate Amino Transferase 25 U/L (17-59); Bilirubin,Total 0.5 mg/dl (0.2-1.3); Blood Urea Nitrogen 36 mg/dl (9-20); Calcium 9.3 mg/dl (8.4-10.2); Carbon Dioxide 25 mmol/L (22.0-30.0); Chloride 108 mmol/L (98-107); Creatinine Clearance Estimated 43 mL/min (50-200); Estimated Glomerular Filt Rate 26 ml/min (>60); GFR (African American) 31 ML/MIN (>60); Glucose 233 mg/dl (74-100); Potassium 4.5 mmoL/L (3.5-5.1); Sodium 140 mmol/L (136-145); Total Protein,Serum 6.8 g/dl (6.3-8.2)
[2020-09-21 16:27] LABS: Acetone, Serum (Rapid) None Detected (None Detect)
[2020-09-21 16:32] LABS: Appearance,Urine CLOUDY (Clear); Bilirubin,Urine Negative (Negative); Blood, Urine 1+ (Negative); Color,Urine YELLOW (Yellow); Glucose,Urine (UA) 2+ (Negative); Ketones,Urine Negative (Negative); Leukocyte Esterase,Urine TRACE (Negative); Nitrate,Urine Negative (Negative); Protein,Urine 2+ (Negative); Specific Gravity, Urine 1.025 (1.005-1.030); Urobilinogen,Urine 0.2 EU/dl (0.2)
[2020-09-21 16:34] LABS: Amorphous Sediment,Urine 1+ /lpf; RBC,Urine TNTC #/hpf (0-3)
== END 2020-09-21 18:07 | disposition home or self-care (01) ==
PROVIDERS: Emergency Provider Emergency Medicine; PCP Nurse Practitioner Family
DX: R07.89 Other chest pain (principal); E11.65 Type 2 diabetes mellitus with hyperglycemia; I10 Essential (primary) hypertension; E78.5 Hyperlipidemia, unspecified; Z88.0 Allergy status to penicillin; Z87.891 Personal history of nicotine dependence
CPT/HCPCS: 36415; 71046; 80048; 80053; 80076; 81001; 82009; 84484; 85025; 87275; 87276; 93005; 96365; 99284

== ENCOUNTER 2020-10-19 09:41 | Day surgery (SDC) | payer OTHER, SELFPAY ==
[2020-10-19 10:08] VITALS: BMI 25.5
[2020-10-19 10:16] VITALS: BP 156/92; PULSE 94; RESP 18; TEMP 36.4; O2SAT 98
[2020-10-19 10:25] LABS: POC Glucose,Bedside 213 (70-110)
[2020-10-19 10:59] LABS: Coronavirus 19 IgG Antibody Negative (Negative); Coronavirus 19 IgM Antibody Negative (Negative)
[2020-10-19 11:25] VITALS: BP 152/89; PULSE 87; RESP 16; TEMP 36.2; O2SAT 99
--- NOTE | 2020-10-19 12:46 | HMH.OPNOTE ---
Date of procedure: 10/19/20 Pre-op Diagnosis:: Recurrent UTIs/history of atonic bladder Post-op Diagnosis:: Same Procedure performed:: Flexible cystoscopy Surgeon:: Deven Mcginnis MD Anesthesia: local Estimated blood loss (mL): 0 Clinical Note:: This is a 39-year-old white male with history of poorly controlled diabetes and peripheral neuropathy. He was diagnosed with an atonic bladder at urology in instructed to catheterize 3 times a day but he has been noncompliant with that. He has been having UTIs and cystoscopy was recommended to rule out possible cause. Was placed on prophylactic antibiotic and tamsulosin at his most recent office visit with me on October 06. He denies any infection since that time. Operative findings:: No evidence of prostate obstruction. Bladder shows some irritability along the trigonal regions. Operative note:: Patient taken to the cystoscopy suite after informed consent was obtained. On the stretcher he was prepped and draped in the standard surgical fashion and 2% lidocaine placed into the urethra and clamped. After 5 minutes the clamp was removed and the flexible cystoscope introduced into the urethral meatus. Passed to the prostatic urethra which showed no evidence of hyperplasia. The external sphincter appeared normal. The bladder was entered and examined in a systematic fashion. There is no evidence of stones, diverticula or trabeculation. A little bit of irritability and cobblestoning noted at the bilateral trigonal regions but no evidence of any papillary lesions. There is no evidence of a median lobe. Scope removed. Patient tolerated procedure well. We discussed the findings today and recommended that he catheterize twice a day. Once in the morning and once in the evening. We will keep him on a prophylactic course of Keflex. He is to return if he has any breakthrough infections or other urologic issues. Condition: stable Disposition: same day Specimens:: None Complications:: None
== END 2020-10-19 11:33 | disposition home or self-care (01) ==
LOC: OUTP 09:42
PROVIDERS: PCP Nurse Practitioner Family; Visit Provider Urology
PROC: (CPT 52000; principal; 2020-10-19 10:30)
DX: Z87.440 Personal history of urinary (tract) infections (principal); Z87.448 Personal history of other diseases of urinary system; E11.9 Type 2 diabetes mellitus without complications; G62.9 Polyneuropathy, unspecified; I10 Essential (primary) hypertension; Z88.0 Allergy status to penicillin; Z79.4 Long term (current) use of insulin; Z79.899 Other long term (current) drug therapy
CPT/HCPCS: 52000; 82962; 86328

== ENCOUNTER 2020-11-17 18:26 | Emergency (ER) | payer OTHER, SELFPAY ==
[2020-11-17 18:27] VITALS: BP 181/101; PULSE 119; RESP 14; TEMP 36.7; O2SAT 98; BMI 25.8
--- NOTE | 2020-11-17 19:52 | HMH.EDUTC ---
[facility] [place] Impression: Exposure to COVID-19 virus Disposition: Home, Self-Care Condition on Discharge: Good Instructions: Preventing the Spread of Coronavirus Discharge Instructions Additional Instructions: Drink plenty of fluids. Take tylenol for pain or fever. Return if you begin to have difficulty breathing. Follow up with your regular doctor. GO TO THE ER FOR ANY WORSENING SYMPTOMS Referrals: Sid Parr MD [Primary Care Provider] - Time of Disposition: 19:52 Medical Decision Making - Medical Records Medical records reviewed: No: I reviewed the patient's medical records. - Michael Inquiry Pt receiving controlled substance: No Vital Signs: 11/17/20 18:27 11/17/20 20:01 Temperature 98.0 F 98.0 F Temperature Source Oral Oral Pulse Rate 119 H Pulse Rate [Right] 119 H Respiratory Rate 14 14 Blood Pressure 181/101 H Blood Pressure [Right Arm] 181/101 H Blood Pressure Mean [Right Arm] 127 02 Sat by Pulse Oximetry 98 Orders (Tests/Meds): ORDERS Category Date Time Status Covid-19 Nasal PCR Sendout P&C Routine Lab 11/17/20 19:35 [place] [facility] [place] - General Stated complaint: coivd test Time Seen by Provider: 11/17/20 19:52 Description of Symptoms (Recalled from Triage Doc. by RN): pt request COVID test pt has no symptoms HEENT Symptoms (Recalled from RN notes): No Resp Symptoms (Recalled from RN notes): No Skin Symptoms (Recalled from RN notes): No MS Symptoms (Recalled from RN notes): No Functional Status (Recalled from RN notes): wnl - History of Present Illness Provider Complaint: He states that she was exposed to covid around 3 to 4 days ago. He denies any symptoms so far. - Related Data Home Medications Medication Instructions Recorded Confirmed Insulin Glargine,Hum.rec.anlog 34 units SQ HS 07/27/19 10/19/20 [Lantus Solostar 100 Units/mL 3mL flexpen] carvediloL [Carvedilol 6.25mg Tab] 6.25 mg PO BID 07/27/19 10/19/20 Acetaminophen [Acetaminophen 650mg 975 mg RC Q6H 10/19/20 10/19/20 suppository] Amlodipine Besylate [Amlodipine 10 mg PO DAILY 10/19/20 10/19/20 10mg Tab] Insulin Lispro [HumaLOG 100 0 unit SQ Q6H 10/19/20 10/19/20 units/mL 3mL vial (SSI)] Tamsulosin HCl [Flomax 0.4mg 1 mg PO DAILY 10/19/20 10/19/20 capsule] cephALEXin [cephALEXin 500mg 500 mg PO DAILY 10/19/20 10/19/20 capsule*] Allergies Allergy/AdvReac Type Severity Reaction Status Date / Time Penicillins [PENICILLINS] Allergy Severe I-HIVES Verified 10/19/20 09:56 - Worker's Comp Is this a Worker's Comp case?: No Is this an H Worker's Comp?: No Is this a [place] Worker's Comp?: No [facility] History - Hepatitis A Screen Drug use history?: No High risk sexual behaviors?: No History of sexually transmitted infection?: No Currently employed?: No Childcare worker?: No Do you have indoor plumbing?: Yes Do you have electricity?: Yes Attestation statement:: This patient has been screened for Hepatitis A risk factors. I have reviewed the patient's past medical history: Yes Medical History: Reports:: Diabetes Mellitus Type 2, Hyperlipidemia, Hypertension, Renal Disease, Renal Insufficiency, Seizures, Urinary Tract Infection Denies:: Cancer, Diabetes Mellitus Type 1, MRSA Other Medical History: Reports: Anemia, Liver Disease, Other Comment: Bladder dysfunction with chronic UTI Laterality Cases: Bilateral: Myringotomy (Ear Tubes), Tonsillectomy Other Surgeries: Yes: No Previous Surgery, Other Amputation: Yes Fractures: Yes - Social History Smoking Status: Former smoker Tobacco Type: smokeless tobacco # Packs/Day (cigarettes): 0 Alcohol Intake: current Alcohol Intake Frequency:: a few times a month Substance Use Type: marijuana, opiates Occupational Status: disabled Housing: apartment Household Members: spouse, children Family Hx:: Bleeding Disorder, Cancer, Coronary Artery Disease, Anemia, Diabetes, Heart Attack, Stroke, Kidne
[2020-11-17 20:01] VITALS: BP 181/101; PULSE 119; RESP 14; TEMP 36.7; O2SAT 98
[2020-11-19 11:39] LABS: Covid-19 Nasal PCR Sendout P&C NEGATIVE
== END 2020-11-17 20:02 | disposition home or self-care (01) ==
PROVIDERS: Emergency Provider Nurse Practitioner Family; PCP Family Medicine
DX: Z20.822 Contact with and (suspected) exposure to COVID-19 (principal); E11.9 Type 2 diabetes mellitus without complications; Z79.4 Long term (current) use of insulin; E78.5 Hyperlipidemia, unspecified; I10 Essential (primary) hypertension; Z88.0 Allergy status to penicillin; Z79.899 Other long term (current) drug therapy
CPT/HCPCS: 99202; G0463; U0004

== ENCOUNTER 2020-11-21 15:16 | Emergency (ER) | payer OTHER, SELFPAY ==
[2020-11-21 15:40] VITALS: BP 183/107; PULSE 101; RESP 14; TEMP 36.6; O2SAT 99; BMI 26.4
[2020-11-21 16:08] LABS: UTC Influenza A Antigen Negative (Negative); UTC Influenza B Antigen Negative (Negative)
--- NOTE | 2020-11-21 16:11 | HMH.EDUTC ---
[facility] Disposition Clinical Impression: Viral syndrome, Exposure to COVID-19 virus Disposition: Home, Self-Care Condition on Discharge: Good Instructions: DI for COVID-19 (Suspected or Confirmed ), Preventing the Spread of Coronavirus Discharge Instructions Additional Instructions: Drink plenty of fluids. Take tylenol for pain or fever. Return if you begin to have difficulty breathing. Follow up with your regular doctor. GO TO THE ER FOR ANY WORSENING SYMPTOMS Prescriptions: Benzonatate [Tessalon Perle 100mg Cap] 100 mg PO TIDP PRN #30 cap PRN Reason: Cough Transmission Status: Received by [id number] Azithromycin [Z-Oscar 250mg Tab*] 250 mg PO UD DOSE PK #6 tab Transmission Status: Received by [id number] Referrals: Sid Parr MD [Primary Care Provider] - Time of Disposition: 16:13 Medical Decision Making - Medical Records Medical records reviewed: No: I reviewed the patient's medical records. - Michael Inquiry Pt receiving controlled substance: No Vital Signs: 11/21/20 15:40 11/21/20 16:28 Temperature 97.8 F 97.8 F Temperature Source Oral Pulse Rate 101 H Pulse Rate [Right Brachial] 101 H Respiratory Rate 14 14 Blood Pressure 183/107 H Blood Pressure [Right Arm] 183/107 H Blood Pressure Mean [Right Arm] 132 Blood Pressure Source [Right Arm] Automatic Cuff Blood Pressure Position [Right Arm] Sitting 02 Sat by Pulse Oximetry 99 Oxygen Delivery Method Room Air - Lab Data Lab Results 11/21/20 15:57: Influenza Type A Ag Negative, Influenza Type B Ag Negative [facility] HPI - General Stated complaint: Test for covid Time Seen by Provider: 11/21/20 16:11 Mode of Arrival: Ambulatory Source of Information: Patient Limitations: No Limitations Description of Symptoms (Recalled from Triage Doc. by RN): COVID TEST. C/O HEADACHE, COUGH AND CONGESTION HEENT Symptoms (Recalled from RN notes): Yes Resp Symptoms (Recalled from RN notes): No Skin Symptoms (Recalled from RN notes): No MS Symptoms (Recalled from RN notes): No Functional Status (Recalled from RN notes): WNL - History of Present Illness Provider Complaint: He is here with chief complaint of cough and chest congestion. He states that he has been feeling bad for several days. He had a negative covid test done here 4 days ago. - Related Data Home Medications Medication Instructions Recorded Confirmed Insulin Glargine,Hum.rec.anlog 34 units SQ HS 07/27/19 10/19/20 [Lantus Solostar 100 Units/mL 3mL flexpen] carvediloL [Carvedilol 6.25mg Tab] 6.25 mg PO BID 07/27/19 10/19/20 Acetaminophen [Acetaminophen 650mg 975 mg RC Q6H 10/19/20 10/19/20 suppository] Amlodipine Besylate [Amlodipine 10 mg PO DAILY 10/19/20 10/19/20 10mg Tab] Insulin Lispro [HumaLOG 100 0 unit SQ Q6H 10/19/20 10/19/20 units/mL 3mL vial (SSI)] Tamsulosin HCl [Flomax 0.4mg 1 mg PO DAILY 10/19/20 10/19/20 capsule] cephALEXin [cephALEXin 500mg 500 mg PO DAILY 10/19/20 10/19/20 capsule*] Previous Rx's Medication Instructions Recorded Azithromycin [Z-Oscar 250mg Tab*] 250 mg PO UD DOSE PK #6 tab 11/21/20 Benzonatate [Tessalon Perle 100mg 100 mg PO TIDP PRN #30 cap 11/21/20 Cap] Allergies Allergy/AdvReac Type Severity Reaction Status Date / Time Penicillins [PENICILLINS] Allergy Severe I-HIVES Verified 10/19/20 09:56 - Worker's Comp Is this a Worker's Comp case?: No [facility] History - Hepatitis A Screen Drug use history?: No High risk sexual behaviors?: No History of sexually transmitted infection?: No Currently employed?: No Childcare worker?: No Do you have indoor plumbing?: Yes Do you have electricity?: Yes Attestation statement:: This patient has been screened for Hepatitis A risk factors. I have reviewed the patient's past medical history: Yes Medical History: Reports:: Diabetes Mellitus Type 1, Diabetes Mellitus Type 2, Hyperlipidemia, Hypertension, Renal Disease, Renal
[2020-11-21 16:28] VITALS: BP 183/107; PULSE 101; RESP 14; TEMP 36.6; O2SAT 99
--- NOTE | 2020-11-22 09:57 | PC.NURSE ---
voice mail left for patient to return call
--- NOTE | 2020-11-23 11:02 | PC.NURSE ---
PATIENT NOTIFIED OF POSITIVE COVID RESULTS
== END 2020-11-21 16:31 | disposition home or self-care (01) ==
PROVIDERS: Emergency Provider Nurse Practitioner Family; PCP Family Medicine
DX: U07.1 COVID-19 (principal); I10 Essential (primary) hypertension; E78.5 Hyperlipidemia, unspecified; E11.9 Type 2 diabetes mellitus without complications; Z79.4 Long term (current) use of insulin; Z79.899 Other long term (current) drug therapy; Z88.0 Allergy status to penicillin
CPT/HCPCS: 87804; 99202; G0463; U0003

== ENCOUNTER → 2020-12-04 12:18 | Outpatient (CLI) | payer OTHER, SELFPAY ==
--- NOTE | 2020-12-04 12:23 | XR_ITS ---
PROCEDURE: XR HAND RT MIN 3V CLINICAL INDICATION: RT HAND INJURY Pain COMPARISON: CR XR RIBS LT MIN 3V W CXR1V from 12/04/2020 FINDINGS: There is a comminuted impacted fracture involving the distal aspect of the 4th metacarpal. There is good alignment. There is diffuse vascular calcification. The joint spaces are well-preserved. No significant degenerative/arthritic changes. No erosive changes evident. Other findings:None. IMPRESSION: Comminuted nondisplaced impacted fracture of the distal aspect of 4th metacarpal Dictated by: Layton Pires MD 12/04/2020 13:11 Layton Pires MD in [place] 12/04/2020 13:11
--- NOTE | 2020-12-04 12:23 | XR_ITS ---
PROCEDURE: XR RIBS LT MIN 3V W CXR1V CLINICAL INDICATION: LT RIB INJURY Pain COMPARISON: CR XR CHEST PORTABLE from 02/12/2020 CR XR CHEST PORTABLE from 03/30/2020 CR XR CHEST 2V from 09/21/2020 FINDINGS: Multiple views of the left ribs show no obvious fracture. No lytic or blastic change. Consider follow-up in 7-[address] with 3D reformats if pain persists Frontal view of the chest shows no acute finding IMPRESSION: No acute findings. Dictated by: Layton Pires MD 12/04/2020 13:16 Layton Pires MD in [place] 12/04/2020 13:16
== END ==
PROVIDERS: PCP Nurse Practitioner Family; Visit Provider Nurse Practitioner Family
DX: S69.91XA Unspecified injury of right wrist, hand and finger(s), initial encounter (principal); S29.9XXA Unspecified injury of thorax, initial encounter
CPT/HCPCS: 71101; 73130

== ENCOUNTER → 2020-12-11 08:05 | Outpatient (CLI) | payer OTHER, SELFPAY ==
--- NOTE | 2020-12-11 08:12 | XR_ITS ---
PROCEDURE: XR HAND RT MIN 3V CLINICAL INDICATION: RT hand Follow-up fracture COMPARISON: CR XR HAND RT MIN 3V from 12/04/2020 FINDINGS: Cast is in place stabilizing the impacted nondisplaced fracture of the distal aspect of the 4th metacarpal. There is good alignment. IMPRESSION: Good alignment nondisplaced 4th metacarpal fracture with mild impaction status post cast placement Dictated by: Layton Pires MD 12/11/2020 09:04 Layton Pires MD in [place] 12/11/2020 09:04
== END ==
PROVIDERS: PCP Nurse Practitioner Family; Visit Provider Orthopaedic Surgery
DX: S62.364D Nondisplaced fracture of neck of fourth metacarpal bone, right hand, subsequent encounter for fracture with routine healing (principal)
CPT/HCPCS: 73130

== ENCOUNTER 2020-12-11 09:08 | Outpatient (RCR) | payer OTHER, SELFPAY | END 2020-12-11 10:23 | disposition home or self-care (01) | LOC: OT 09:08 | PROVIDERS: Visit Provider Orthopaedic Surgery | DX: S62.364D Nondisplaced fracture of neck of fourth metacarpal bone, right hand, subsequent encounter for fracture with routine healing (principal) | CPT/HCPCS: 97760 ==

== ENCOUNTER → 2020-12-25 08:57 | Outpatient (CLI) | payer OTHER, SELFPAY ==
--- NOTE | 2020-12-25 09:11 | XR_ITS ---
PROCEDURE: XR HAND RT MIN 3V CLINICAL INDICATION: closed fracture of R 4th finger metacarpal neck COMPARISON: CR XR HAND RT MIN 3V from 12/04/2020 CR XR HAND RT MIN 3V from 12/11/2020 FINDINGS: There is redemonstration of a comminuted impacted fracture of the distal aspect of the 4th metacarpal. There is good alignment. There is no change in alignment. There has been interval development of callus formation consistent with progression of healing. There is atherosclerotic calcification in the vasculature. IMPRESSION: Progressive healing of comminuted distal 4th metacarpal fracture. Dictated by: Danae Marsh MD 12/25/2020 09:40 Danae Marsh MD in [place] 12/25/2020 09:40
== END ==
PROVIDERS: PCP Nurse Practitioner Family; Visit Provider Orthopaedic Surgery
DX: S62.364A Nondisplaced fracture of neck of fourth metacarpal bone, right hand, initial encounter for closed fracture (principal)
CPT/HCPCS: 73130

== ENCOUNTER 2021-01-28 21:30 | Inpatient (IN) | payer OTHER, SELFPAY ==
[2021-01-28] VITALS (17 sets, daily range): BP systolic 94–248; BP diastolic 49–132; PULSE 86–112; RESP 8–22; TEMP 36.8; O2SAT 97–100; BMI 37.9
--- NOTE | 2021-01-28 21:44 | CT_ITS ---
PROCEDURE: CT HEAD/BRAIN WO CON CLINICAL INDICATION: slurred speech Slurred speech COMPARISON: CT CT HEAD/BRAIN WO CON from 03/30/2020 TECHNIQUE: Axial images obtained. All CT scans at the facility use one or more dose reduction, viz: automated exposure control, ma/kV adjustment per patient size (including targeted exams where dose is matched to indication, i.e. head), or iterative reconstruction technique. FINDINGS: No midline shift, mass effect, intracranial hemorrhage, hydrocephalus, or extra-axial fluid collection is evident. The calvarium has an unremarkable appearance. No mastoid effusion. No sinus air-fluid level. IMPRESSION: No acute intracranial finding Dictated by: Layton Pires MD 01/29/2021 04:44 Layton Pires MD in [place] 01/29/2021 04:44
[2021-01-28 21:54] LABS: Basophils # 0.1 K/mm3 (0-0.2); Basophils % 0.9 % (0.1-2.0); Chloride 97 mmol/L (98-107); Eosinophils # 0.1 K/mm3 (0.0-0.4); Eosinophils % 2.5 % (0.1-12.0); Hematocrit 44.6 % (42.0-52.0); Lymphocytes # 1.4 K/mm3 (0.7-4.5); Lymphocytes % 24.4 % (10-50); Mean Corpuscular HGB Conc 29.2 g/dL (31.8-35.4); Mean Corpuscular Hemoglobin 28.7 pg (27.0-31.2); Mean Corpuscular Volume 98.3 fl (80-94); Monocytes # 0.3 K/mm3 (0.1-1.0); Monocytes % 5.1 % (1.7-9.3); Neutrophils # 3.8 K/mm3 (1.8-7.8); Neutrophils % 67.1 % (37.0-80.0); Platelet Count 228 K/mm3 (142-424); Red Blood Count 4.54 M/mm3 (4.60-6.20); Red Cell Distribution Width 13.1 % (11.5-17.5); Sodium 127 mmol/L (136-145); White Blood Count 5.6 K/mm3 (4.8-10.8)
[2021-01-28 21:55] LABS: Potassium 4.8 mmoL/L (3.5-5.1)
--- NOTE | 2021-01-28 21:56 | XR_ITS ---
PROCEDURE: XR CHEST 2V CLINICAL HISTORY: hypertension COMPARISON: CR XR CHEST 2V from 06/15/2019 CR XR CHEST PORTABLE from 03/30/2020 CR XR CHEST 2V from 09/21/2020 CR XR RIBS LT MIN 3V W CXR1V from 12/04/2020 FINDINGS: The cardiomediastinal silhouette and pulmonary vascularity are within normal limits. No lobar consolidation or collapse is evident. On the lateral view there is an area of increased density overlying the T7 vertebral body posteriorly and inferiorly and may be due to summation artifact. No acute bony abnormalities. IMPRESSION: No acute finding. Increased density over the posterior and inferior aspect T7 on the lateral view which may be due to summation artifact. Overlying nodule or rib lesion is also consideration. Consider follow-up to confirm stability. Dictated by: Layton Pires MD 01/29/2021 04:16 Layton Pires MD in [place] 01/29/2021 04:16
[2021-01-28 21:57] LABS: Alanine Aminotransferase 25 U/L (12-78); Anion Gap 14.8 mEq/L (5-15); Aspartate Amino Transferase 25 U/L (17-59); Blood Urea Nitrogen 43 mg/dl (9-20); Carbon Dioxide 20 mmol/L (22.0-30.0); Creatinine Clearance Estimated 35 mL/min (50-200); Estimated Glomerular Filt Rate 16 ml/min (>60); GFR (African American) 20 ML/MIN (>60)
[2021-01-28 21:58] LABS: Albumin Level 3.5 g/dl (3.5-5.0); Albumin/Globulin Ratio 1.3 (1.1-1.8); Alkaline Phosphatase 312 U/L (38-126); Bilirubin,Total 0.4 mg/dl (0.2-1.3); Calcium 8.5 mg/dl (8.4-10.2); Globulin 2.6 g/dL (1.3-3.2); Total Protein,Serum 6.1 g/dl (6.3-8.2)
--- NOTE | 2021-01-28 21:58 | HMH.EDNEU ---
ED Disposition Clinical Impression: MALCOM (acute kidney injury), Hypertensive emergency Transient cerebral ischemia Qualifiers: Transient cerebral ischemia type: unspecified Qualified Code(s): G45.9 - Transient cerebral ischemic attack, unspecified Diabetes mellitus, insulin dependent (IDDM), uncontrolled Qualifiers: Glycemic state: with hyperglycemia Qualified Code(s): E10.65 - Type 1 diabetes mellitus with hyperglycemia Disposition: Admitted As Inpatient Condition on Discharge: Serious - Critical Care Critical Care Time: Yes Attestation: On 01/28/21, the high probability of a clinically significant, sudden or life threatening deterioration of the following system(s) required my full and direct attention, intervention and personal management. The time I documented below is in addition to time spent performing reported procedures but includes the following listed in this critical care notation. Total Critical Care Time: 60 Vital system(s) involved:: Central Nervous System My critical care processes included: Assessment & monitoring of V/S, Initial and Re-exams, Data Review/Interpretation, Coordinating Care, Medication Orders and management, Documentation Medical Decision Making - Medical Records Medical records reviewed: Yes: I reviewed the patient's medical records. - Michael Inquiry Pt receiving controlled substance: No Vital Signs: 01/28/21 21:32 01/28/21 21:41 01/28/21 21:45 Temperature 98.2 F Temperature Source Oral Pulse Rate 90 86 Pulse Rate [Right Brachial] 89 Respiratory Rate 19 19 22 Blood Pressure 248/132 H Blood Pressure [Left Arm] 248/130 H Blood Pressure Mean Blood Pressure Mean [Left Arm] 169 Blood Pressure Source Manual Cuff/ Auscultation Blood Pressure Source [Left Arm] Automatic Cuff Blood Pressure Position [Left Arm] Sitting 02 Sat by Pulse Oximetry 97 98 98 Oxygen Delivery Method Room Air 01/28/21 22:00 01/28/21 22:15 01/28/21 22:18 Temperature Temperature Source Pulse Rate 89 88 87 Pulse Rate [Right Brachial] Respiratory Rate 17 14 8 L Blood Pressure 230/130 H 217/127 H Blood Pressure [Left Arm] Blood Pressure Mean 181 179 Blood Pressure Mean [Left Arm] Blood Pressure Source Blood Pressure Source [Left Arm] Blood Pressure Position [Left Arm] 02 Sat by Pulse Oximetry 98 97 98 Oxygen Delivery Method 01/28/21 22:30 01/28/21 22:55 01/28/21 23:15 Temperature Temperature Source Pulse Rate 90 108 H Pulse Rate [Right Brachial] Respiratory Rate 16 Blood Pressure 236/127 H 178/106 H Blood Pressure [Left Arm] Blood Pressure Mean 175 131 Blood Pressure Mean [Left Arm] Blood Pressure Source Blood Pressure Source [Left Arm] Blood Pressure Position [Left Arm] 02 Sat by Pulse Oximetry 98 98 Oxygen Delivery Method 01/28/21 23:20 01/28/21 23:21 01/28/21 23:25 Temperature Temperature Source Pulse Rate 110 H 111 H Pulse Rate [Right Brachial] Respiratory Rate 22 20 Blood Pressure 161/98 H 166/103 H 178/104 H Blood Pressure [Left Arm] Blood Pressure Mean 125 124 133 Blood Pressure Mean [Left Arm] Blood Pressure Source Blood Pressure Source [Left Arm] Blood Pressure Position [Left Arm] 02 Sat by Pulse Oximetry 98 99 Oxygen Delivery Method 01/28/21 23:30 01/28/21 23:35 01/28/21 23:40 Temperature Temperature Source Pulse Rate 111 H 112 H Pulse Rate [Right Brachial] Respiratory Rate 20 20 18 Blood Pressure 161/100 H 153/102 H 173/92 H Blood Pressure [Left Arm] Blood Pressure Mean 123 118 119 Blood Pressure Mean [Left Arm] Blood Pressure Source Blood Pressure Source [Left Arm] Blood Pressure Position [Left Arm] 02 Sat by Pulse Oximetry 98 98 Oxygen Delivery Method 01/28/21 23:45 01/28/21 23:58 01/29/21 00:00 Temperature Temperature Source Pulse Rate 109 H 106 H Pulse Rate [Right Brachial] Respiratory Rate 18 20
--- NOTE | 2021-01-28 22:02 | ECG_ITS ---
APPROVED REPORT Exam: Resting ECG HR:87 bpm ECG Measurements Heart Rate 87 AXES UT 142 P 70 QRSd 82 QRS 13 QT 380 T -1 QTc 457 Conclusion Normal sinus rhythm Nonspecific T wave abnormality Abnormal ECG Electronically signed by : Sid Grossman, 01/29/2021 18:11:45
[2021-01-28 22:08] LABS: Adenovirus,PCR Not Detected (NotDetected); Bordetella Pertussis Not Detected (NotDetected); Chlamydophila Pneumoniae, PCR Not Detected (NotDetected); Coronavirus 19, PCR Not Detected (NotDetected); Coronavirus 229E Not Detected (NotDetected); Coronavirus NL63 Not Detected (NotDetected); Coronavirus OC43 Not Detected (NotDetected); Coronovirus HKU1,PCR Not Detected (NotDetected); Human Metapneumovirus Not Detected (NotDetected); Influenza A, PCR Not Detected (NotDetected); Influenza AH1, 2009 Not Detected (NotDetected); Influenza AH1, PCR Not Detected (NotDetected); Influenza AH3,PCR Not Detected (NotDetected); Influenza B, PCR Not Detected (NotDetected); Mycoplasma Pneumoniae, PCR Not Detected (NotDetected); Parainfluenza 1, PCR Not Detected (NotDetected); Parainfluenza 2, PCR Not Detected (NotDetected); Parainfluenza 3, PCR Not Detected (NotDetected); Parainfluenza 4, PCR Not Detected (NotDetected); Respiratory Syncytial Virus Not Detected (NotDetected); Rhinovirus/Enterovirus Not Detected (NotDetected)
[2021-01-28 22:12] LABS: Acetone, Serum (Rapid) None Detected (None Detect)
[2021-01-28 22:14] LABS: Glucose 1205 mg/dl (74-100)
[2021-01-28 22:17] LABS: C-Reactive Protein 27.1 mg/L (0-4)
[2021-01-28 22:24] LABS: ABG Base Excess -8.7 mmol/L (-2.4-2.3); ABG HCO3 17.5 mmhg (22.0-26.0); ABG Oxygen Saturation 95 % (90-100); ABG PCO2 35.1 mmhg (35.0-45.0); ABG PH 7.32 mmol/L (7.35-7.45); ABG PO2 69.9 mmhg (80-100); ABG TCO2 18.6 mmhg (23-27)
[2021-01-28 22:25] LABS: Troponin I 0.07 ng/ml (0.00-0.034)
[2021-01-28 22:27] LABS: Erythrocyte Sedimentation Rate 77 mm/hr (0-15)
[2021-01-28 22:29] LABS: Allen's Test Acceptable; Oxygen 21 %; Source Right Radial
[2021-01-28 22:44] LABS: Microscopic, Urine URINE MICROSCOPIC (MICROSCOPIC)
[2021-01-28 22:48] LABS: Appearance,Urine CLEAR (Clear); Bilirubin,Urine Negative (Negative); Blood, Urine 1+ (Negative); Color,Urine YELLOW (Yellow); Glucose,Urine (UA) 3+ (Negative); Ketones,Urine Negative (Negative); Leukocyte Esterase,Urine Negative (Negative); Nitrate,Urine POSITIVE (Negative); Protein,Urine 2+ (Negative); Specific Gravity, Urine 1.025 (1.005-1.030); Urobilinogen,Urine 0.2 EU/dl (0.2)
[2021-01-28 23:00] LABS: Bacteria,Urine 1+ /lpf
[2021-01-29] VITALS (36 sets, daily range): BP systolic 125–173; BP diastolic 69–108; PULSE 70–107; RESP 12–21; TEMP 36.6–37.1; O2SAT 93–99; BMI 25.0; BMI 25.2
--- NOTE | 2021-01-29 00:15 | PC.NURSE ---
Addendum entered by Chuck Gutierrez RN 01/29/21 00:48: 0020- Cardene restarted at 2.5 mcg/min Original Note: Cardene stopped at 2345. BP currently 164/96, HR 97. Pt being transported to [facility].
[2021-01-29 01:43] LABS: POC Glucose,Bedside 420 (70-110)
--- NOTE | 2021-01-29 01:50 | PC.NURSE ---
patient up to floor via stretcher.
[2021-01-29 02:18] LABS: Troponin I 0.08 ng/ml (0.00-0.034)
[2021-01-29 02:53] LABS: Lactic Acid 2.3 mmol/L (0.7-2.1)
[2021-01-29 03:56] LABS: Reflex Lactic Add Lactic Reflex
[2021-01-29 04:20] LABS: Basophils # 0.1 K/mm3 (0-0.2); Basophils % 0.7 % (0.1-2.0); Eosinophils # 0.3 K/mm3 (0.0-0.4); Eosinophils % 3.2 % (0.1-12.0); Hematocrit 37.4 % (42.0-52.0); Hemoglobin 12.3 g/dL (14.1-18.0); Lymphocytes # 3.2 K/mm3 (0.7-4.5); Lymphocytes % 32.8 % (10-50); Mean Corpuscular HGB Conc 32.9 g/dL (31.8-35.4); Mean Corpuscular Hemoglobin 28.8 pg (27.0-31.2); Mean Corpuscular Volume 87.5 fl (80-94); Mean Platelet Volume 9.2 fl (7.4-10.4); Monocytes # 0.5 K/mm3 (0.1-1.0); Monocytes % 5.1 % (1.7-9.3); Neutrophils # 5.7 K/mm3 (1.8-7.8); Neutrophils % 58.1 % (37.0-80.0); Platelet Count 232 K/mm3 (142-424); Red Blood Count 4.27 M/mm3 (4.60-6.20); Red Cell Distribution Width 13.4 % (11.5-17.5); White Blood Count 9.8 K/mm3 (4.8-10.8)
[2021-01-29 04:26] LABS: Anion Gap 13.6 mEq/L (5-15); Blood Urea Nitrogen 41 mg/dl (9-20); Calcium 8.5 mg/dl (8.4-10.2); Carbon Dioxide 18 mmol/L (22.0-30.0); Chloride 105 mmol/L (98-107); Creatinine Clearance Estimated 27 mL/min (50-200); Estimated Glomerular Filt Rate 18 ml/min (>60); GFR (African American) 22 ML/MIN (>60); Magnesium 1.7 mg/dl (1.6-2.3); Potassium 3.6 mmoL/L (3.5-5.1); Sodium 133 mmol/L (136-145)
[2021-01-29 04:29] LABS: Glucose 430 mg/dl (74-100)
[2021-01-29 04:39] LABS: Troponin I 0.08 ng/ml (0.00-0.034)
--- NOTE | 2021-01-29 04:59 | PC.NURSE ---
shift summary patient remains on cardene drip at 2.5 mg(25ml/hr). environmental monitoring specialist has shown sr, no temperature noted. + 1 generalized edema. breath sounds clear throughout. nih assessment performed prior to leaving emergency department score of 0. patient hs remained awake alert and oriented throughout shift. notification result received from lab, physician not notified due to pre-existing condition with expected result as well as improvement from last lab draw. critical glucose ordered, physician not notified due to existing orders for treatment and more specific notification criteria.
--- NOTE | 2021-01-29 06:42 | CA_ITS ---
APPROVED REPORT EXAM: Comprehensive 2D, Doppler, and color-flow Echocardiogram Hogshead Mat Inspector: Jayne Tsai CRT Ht: 5 ft 7 in Wt: 160lbs BSA: 1.84 BP: 153/104 mmHg Indications: Diabetes, Hyperlipidemia, Hypertension/HDD, seizure, liver disease 2D Dimensions LVOT 1.74 cm (M/F) 1.5-2.5 M-Mode Dimensions RVDd 2.32 cm (0.9-2.6) LA Diam 3.27 cm (1.9-4.0) LVDd 4.69 cm (3.5-5.7) Ao Diam 4.22 cm (2.0-3.7) LVDs 3.04 cm (3.5-5.7) IVSd 1.78 cm (0.6-1.1) PWd 1.38 cm (0.6-1.1) EF (Teich) 64.50% FS 35.20% EDV (Teich) 101.90 mL ESV (Teich) 36.20 mL LV Diastology E Decel Time 107.00 (160-240 msec) E/A Ratio 0.64 MED E' 5.30 (< 7 cm/sec) MED A' 7.30 cm/s E'/MED E' Ratio 13.66 (>14) LAT E' 5.60 (<10 cm/sec) LAT A' 8.60 cm/s E/LAT E' Ratio 12.93 (>14) Aortic Valve AO Peak GR. 8.20 mmHg Mitral Valve MV A Velocity 114.00 (40-130 cm/s) E/A Ratio 0.64 MV Decel. Time 107.00 (160-240 ms) Pulmonary Valve PV Peak Velocity 73.00 (50-150 cm/s) Tricuspid Valve TR P. Velocity 123.00 cm/s RAP Estimate 10.00 mmHg RVSP 16.10 mmHg Left Ventricle Left atrium is mildly enlarged, left ventricle is normal size, left ventricle wall thickness is upper limit of the normal, there is preserved left ventricular systolic function, visually estimated ejection fraction 55% with no regional wall motion abnormality, diastolic parameters are inconclusive. Right Ventricle Right atrium and right ventricle are normal size and contractility. Aortic Valve Aortic valve is grossly normal, there is no aortic stenosis aortic insufficiency. Mitral Valve Mitral valve grossly normal, there is trace mitral regurgitation. Tricuspid Valve Tricuspid grossly normal, there is trace tricuspid regurgitation, tricuspid regurgitation jet velocity is inadequate for calculation of the right ventricular systolic pressure. Pulmonic Valve Pulmonic valve is poorly visualized. Great Vessels Aortic root is normal size. Pericardium No significant pericardial effusion noted. Conclusion 1. Normal left ventricular size, preserved left ventricular systolic function, visually estimated ejection fraction 55% with no regional wall motion abnormality, diastolic parameters are inconclusive. 2. Trace mitral and tricuspid regurgitation. 3. No significant pericardial effusion noted. Electronically signed by : Luis M Sanders, 01/29/2021 14:18:03
--- NOTE | 2021-01-29 06:42 | CA_ITS ---
APPROVED REPORT Top Precipitator Operator Helper: Nichole Leonard RVT Laterality: Bilateral Study Quality: Good Indications: tia Risk Factors Hypertension: TIA/CVA History Diabetes Doppler Spectral Velocity Analysis ECA (R) 145.40/7.50 cm/s ECA (L) 137.90/9.60 cm/s dICA (R) 72.70/20.30 cm/s dICA (L) 70.60/15.00 cm/s Vilma (R) 85.50/22.50 cm/s Vilma (L) 56.70/16.00 cm/s pICA (R) 72.70/12.80 cm/s pICA (L) 72.70/15.00 cm/s dCCA (R) 66.30/9.60 cm/s dCCA (L) 101.60/10.70 cm/s pCCA (R) 112.30/8.60 cm/s pCCA (L) 113.30/8.60 cm/s Vert (R) 62.00/10.70 cm/s Vert (L) 39.60/9.60 cm/s ICA/CCA 1.29 ICA/CCA 0.72 Findings Study suggests less than 20% stenosis of the bilateral internal cartoid arteries. Antegrade flow seen bilateral vertebral arteries. Conclusion Study suggests less than 20% stenosis of the bilateral internal cartoid arteries. Antegrade flow seen bilateral vertebral arteries. Electronically signed by : Layton Pires MD 01/29/2021 16:25:05
--- NOTE | 2021-01-29 06:42 | CA_ITS ---
APPROVED REPORT Pants Busheler: Nichole Leonard RVT Study Quality: Adequate Indications: hypertensive emergency Risk Factors Hypertension Obesity Diabetes Renal Artery Doppler Mid (R) 98.8/ cm/sec Distal (R) 105.5/ cm/sec Renal Aorta Ratio (R) 0.95 Segmental A. (R) 129.7/31.7 cm/sec RI: 0.75 Segmental A. Sup (R) 71.5/12.3 cm/sec Segmental A. Mid (R) 90.9/8.2 cm/sec Segmental A. Inf (R) 129.7/31.7 cm/sec Distal (L) 64.3/ cm/sec Renal Aorta Ratio (L) 0.58 Segmental A. (L) 102.3/13.8 cm/sec RI: 0.86 Segmental A. Sup (L) 67.8/11.5 cm/sec Segmental A. Mid (L) 102.3/13.8 cm/sec Segmental A. Inf (L) 57.5/10.3 cm/sec Renal Measurements Kidney Size (R) 10.8x6.7 cm Cortical Thickness (R) 1.1 cm Kidney Size (L) 10.6x6.1 cm Cortical Thickness (L) 1.5 cm Findings Study suggests no evidence of stenosis of the bilateral renal arteries. Limited study r/t overlaying gas, unable to visualize proximal renal arteries. Hydronephrosis seen left kidney. Conclusion Study suggests no evidence of stenosis of the bilateral renal arteries. Limited study r/t overlaying gas, unable to visualize proximal renal arteries. Hydronephrosis seen left kidney. Electronically signed by : Layton Pires MD 01/29/2021 16:27:06
--- NOTE | 2021-01-29 07:28 | HMH.PHAVTE ---
[facility] VTE Monitoring - Patient Demographics Admission date: 01/29/21 Report Date: 01/29/21 Time: 07:28 Allergies/Adverse Reactions: Patient Allergies Penicillins [PENICILLINS] Allergy (Severe, Verified 12/25/20 09:29) I-HIVLAW Height: 1.7 m Weight: 72.665 kg Patient Problems: Current Active Problems Diabetes mellitus, insulin dependent (IDDM), uncontrolled (Chronic) Hypertensive emergency (Acute) Transient cerebral ischemia (Acute) MALCOM (acute kidney injury) (Acute) - VTE Risk Labs: VTE Related Lab Results Hgb 12.3 g/dL (14.1-18.0) L 01/29/21 04:05 Hct 37.4 % (42.0-52.0) L 01/29/21 04:05 Plt Count 232 K/mm3 (142-424) 01/29/21 04:05 BUN 41 mg/dl (9-20) H 01/29/21 04:05 Creatinine 3.80 mg/dl (0.66-1.25) H 01/29/21 04:05 Estimated Creat Clear 27 mL/min (50-200) 01/29/21 04:05 Was VTE Risk Assessment Performed: Yes VTE Score: 4 VTE Risk Level: Low Risk - Prophylaxis VTE Prophylaxis Ordered?: Yes Types of VTE Prophylaxis: TEDS Knee High Location of Applied Device: Bilateral Lower Extremeties
--- NOTE | 2021-01-29 07:38 | HMH.HP ---
*Admission Date: 01/29/21 *Chief complaint: Neurologic changes *History of present illness: 40-year-old type I diabetic since the age of 7 presented to the emergency department after acute onset of tinnitus followed by loss of hearing at home with family members noting garbled speech and aphasia. Patient was brought to the ER where he was found to be severely hypertensive with a glucose greater than the thousand. Patient's last A1c was greater than 14. Patient reports this morning yesterday was a fairly normal day until the rather sudden onset of his symptoms. In the emergency department he was started on a Cardene drip for his hypertensive emergency. Patient was given IV fluids and IV insulin to begin reducing his blood sugars. Patient has diabetic retinopathy, neuropathy and nephropathy. This morning he denies any complaints. Patient claims a history of seizures but has never been treated for seizures nor taken any antiepileptics [facility] History I have reviewed the patient's past medical history: Yes Medical History: Reports:: Diabetes Mellitus Type 1, Hyperlipidemia, Hypertension, Renal Disease, Renal Insufficiency, Seizures, Urinary Tract Infection Denies:: Cancer, Diabetes Mellitus Type 2, MRSA *Have you ever received a pneumonia vaccine?: No (refuses) *Have you received a flu vaccine this season?: No (refuses) Other Medical History: Reports: Anemia, Liver Disease, Other Laterality Cases: Bilateral: Myringotomy (Ear Tubes), Tonsillectomy Other Surgeries: Yes: No Previous Surgery, Other Amputation: Yes Fractures: Yes - *Social History Smoking Status: Former smoker Tobacco Type: smokeless tobacco # Packs/Day (cigarettes): 0 Alcohol Intake: never Alcohol Intake Frequency:: a few times a month Substance Use Type: marijuana, opiates *Occupational Status:: disabled Housing: house Household Members: significant other, children *Travel in the last 8 weeks: None Family Hx:: Coronary Artery Disease, Diabetes, Heart Attack, Hyperlipidemia, Hypertension Review of Systems - Constitutional Denies anorexia, Denies body ache(s) - Eyes Denies blurry vision - ENT Denies abnormal hearing, Denies difficulty swallowing - *Cardiovascular Denies chest pain, Denies chest pain at rest - *Respiratory Denies change in phlegm color, Denies chest congestion, Denies cough - *Gastrointestinal Denies belching, Denies bloating - *Genitourinary Denies difficulty urinating - *Musculoskeletal Denies abnormal walking, Denies joint pain - *Neurologic Reports abnormal hearing, Reports abnormal speech, Reports burning sensations, Reports loss of vision, Reports numbness, Reports sensory deficit, Reports weakness, Denies localized weakness, Denies seizure-like activity Meds Home Medications Medication Instructions Recorded Confirmed Type Insulin Glargine,Hum.rec.anlog 34 units SQ HS 07/27/19 12/25/20 History [Lantus Solostar 100 Units/mL 3mL flexpen] carvediloL [Carvedilol 6.25mg Tab] 6.25 mg PO BID 07/27/19 12/25/20 History Acetaminophen [Acetaminophen 650mg 975 mg RC Q6H 10/19/20 12/25/20 History suppository] Amlodipine Besylate [Amlodipine 10 mg PO DAILY 10/19/20 12/25/20 History 10mg Tab] Insulin Lispro [HumaLOG 100 0 unit SQ Q6H 10/19/20 12/25/20 History units/mL 3mL vial (SSI)] Tamsulosin HCl [Flomax 0.4mg 1 mg PO DAILY 10/19/20 12/25/20 History capsule] cephALEXin [cephALEXin 500mg 500 mg PO DAILY 10/19/20 12/25/20 History capsule*] Benzonatate [Tessalon Perle 100mg 100 mg PO TIDP PRN #30 cap 11/21/20 12/25/20 Rx Cap] Allergies Allergy/AdvReac Type Severity Reaction Status Date / Time Penicillins [PENICILLINS] Allergy Severe I-HIVES Verified 12/25/20 09:29 Exam Vital signs and Labs for Last 24 Hours: Temp Pulse Resp BP Pulse Ox 98.2 F 88 18 129/71 95 01/29/21 04:00 01/29/21 06:00 01/29/21 06:00 01/29/21 06:00 01/29/21 06:00 Laboratory Results - last 24 hr
--- NOTE | 2021-01-29 11:44 | HMH.PHAINT ---
verified home medication list using list from [facility] pharmacy and Dr Parr' office
[2021-01-29 12:13] LABS: POC Glucose,Bedside 171 (70-110)
[2021-01-29 20:32] LABS: POC Glucose,Bedside 79 (70-110)
[2021-01-29 21:00] LABS: POC Glucose,Bedside 300 (70-110)
--- NOTE | 2021-01-29 21:00 | PC.NURSE ---
pt had no needs,restock gloves in room tech already did snacks. [place]
--- NOTE | 2021-01-29 21:00 | PC.NURSE ---
Pt has been pleasant this shift, very conversant with staff. agreeable and appropriate with care. nad noted. lungs clear, bowels active. nad noted. has been up with assistance to the restroom. typically walks with a cane
[2021-01-30] VITALS (9 sets, daily range): BP systolic 110–156; BP diastolic 66–87; PULSE 70–83; RESP 16–20; TEMP 36.1–36.6; O2SAT 95–100; BMI 28.0
--- NOTE | 2021-01-30 03:41 | PC.NURSE ---
No acute changes overnight. Pt slept well through the night, no c/o pain. Lungs CTA, on room air. Blood cultures were positive for gram + cocci, was notified and ordered Vanc per pharmacy consult. Pt received one dose 1500mg vanc. Pt had one episode of hypogycemia around 0400, pt called out and reported he felt low , BG was 42. Gave pt two cups of orange juice and 3 peanut butter and crackers, BG increased to 85. Pt ate another 3 PB crackers. Will recheck at 0500. VSS, call light in reach.
[2021-01-30 04:22] LABS: POC Glucose,Bedside 83 (70-110)
[2021-01-30 05:32] LABS: POC Glucose,Bedside 123 (70-110)
--- NOTE | 2021-01-30 05:33 | PC.NURSE ---
pt has no needs. Ice water,trash,dirty linen and room straighten done by other tech lalo.[place]
[2021-01-30 06:01] LABS: Basophils # 0.1 K/mm3 (0-0.2); Basophils % 0.7 % (0.1-2.0); Eosinophils # 0.3 K/mm3 (0.0-0.4); Eosinophils % 4.3 % (0.1-12.0); Hematocrit 32.9 % (42.0-52.0); Hemoglobin 10.7 g/dL (14.1-18.0); Lymphocytes # 2.9 K/mm3 (0.7-4.5); Lymphocytes % 36.3 % (10-50); Mean Corpuscular HGB Conc 32.5 g/dL (31.8-35.4); Mean Corpuscular Hemoglobin 28.5 pg (27.0-31.2); Mean Corpuscular Volume 87.7 fl (80-94); Mean Platelet Volume 8.9 fl (7.4-10.4); Monocytes # 0.3 K/mm3 (0.1-1.0); Monocytes % 4.1 % (1.7-9.3); Neutrophils # 4.3 K/mm3 (1.8-7.8); Neutrophils % 54.6 % (37.0-80.0); Platelet Count 219 K/mm3 (142-424); Red Blood Count 3.75 M/mm3 (4.60-6.20); Red Cell Distribution Width 13.4 % (11.5-17.5); White Blood Count 7.9 K/mm3 (4.8-10.8)
[2021-01-30 06:24] LABS: Anion Gap 11.4 mEq/L (5-15); Blood Urea Nitrogen 53 mg/dl (9-20); Calcium 7.9 mg/dl (8.4-10.2); Carbon Dioxide 18 mmol/L (22.0-30.0); Chloride 108 mmol/L (98-107); Creatinine Clearance Estimated 29 mL/min (50-200); Estimated Glomerular Filt Rate 17 ml/min (>60); GFR (African American) 21 ML/MIN (>60); Glucose 133 mg/dl (74-100); Potassium 3.4 mmoL/L (3.5-5.1); Sodium 134 mmol/L (136-145)
[2021-01-30 08:03] LABS: Procalcitonin 0.434 ng/mL (0.0-2.0)
--- NOTE | 2021-01-30 08:28 | HMH.PHACONS ---
- Pharmacy Consult Date: 01/30/21 Time: 08:28 Referring provider: DR. NICOLE Reason for Consult:: VANCOMYCIN DOSING Allergies and ADEs:: Allergies Allergy/AdvReac Type Severity Reaction Status Date / Time Penicillins [PENICILLINS] Allergy Severe I-HIVES Verified 12/25/20 09:29 Home Medications:: Home Medications Medication Instructions Recorded Confirmed Type Insulin Glargine,Hum.rec.anlog 34 units SQ HS 07/27/19 01/29/21 History [Lantus Solostar 100 Units/mL 3mL flexpen] Amlodipine Besylate [Amlodipine 10 mg PO DAILY 10/19/20 01/29/21 History 10mg Tab] Tamsulosin HCl [Flomax 0.4mg 0.4 mg PO HS 10/19/20 01/29/21 History capsule] cephALEXin [cephALEXin 500mg 500 mg PO DAILY 10/19/20 01/29/21 History capsule*] Cetirizine HCl 10 mg PO DAILY 01/29/21 01/29/21 History Gabapentin [Neurontin 600mg 600 mg PO HS 01/29/21 01/29/21 History tablet] Losartan Potassium [Cozaar 50mg 50 mg PO DAILY 01/29/21 01/29/21 History Tablets] Height: 1.7 m Weight: 80.91 kg Laboratory Results:: Laboratory Results - last 24 hr 01/29/21 12:03: POC Glucose 171 H 01/29/21 16:32: POC Glucose 79 01/29/21 20:53: POC Glucose 300 H 01/30/21 04:11: POC Glucose 83 01/30/21 05:10: WBC 7.9, RBC 3.75 L, Hgb 10.7 L, Hct 32.9 L, MCV 87.7, MCH 28.5, MCHC 32.5, RDW 13.4, Plt Count 219, MPV 8.9, Neut % (Auto) 54.6, Lymph % (Auto) 36.3, [place] % (Auto) 4.1, Eos % (Auto) 4.3, Baso % (Auto) 0.7, Neut # (Auto) 4.3, Lymph # (Auto) 2.9, [place] # (Auto) 0.3, Eos # (Auto) 0.3, Baso # (Auto) 0.1 01/30/21 05:10: Sodium 134 L, Potassium 3.4 L, Chloride 108 H, Carbon Dioxide 18 L, Anion Gap 11.4, BUN 53 H D, Creatinine 3.90 H, Estimated Creat Clear 29, Estimated GFR 17 L*, Est GFR ( Amer) 21 L, Glucose 133 H, Calcium 7.9 L 01/30/21 05:10: Procalcitonin 0.434 01/30/21 05:25: POC Glucose 123 H Medical History: Reports:: Diabetes Mellitus Type 1, Hyperlipidemia, Hypertension, Renal Disease, Renal Insufficiency, Seizures, Urinary Tract Infection Denies:: Cancer, Diabetes Mellitus Type 2, MRSA Assessment and Plan (1) Hypertensive emergency Status: Acute Category: Medical Code(s): I16.1 - Hypertensive emergency (2) MALCOM (acute kidney injury) Status: Acute Category: Medical Code(s): N17.9 - Acute kidney failure, unspecified (3) Transient cerebral ischemia Status: Acute Qualifiers: Transient cerebral ischemia type: unspecified Qualified Code(s): G45.9 - Transient cerebral ischemic attack, unspecified Category: Medical Code(s): G45.9 - Transient cerebral ischemic attack, unspecified (4) Diabetes mellitus, insulin dependent (IDDM), uncontrolled Status: Chronic Qualifiers: Glycemic state: with hyperglycemia Qualified Code(s): E10.65 - Type 1 diabetes mellitus with hyperglycemia Category: Medical Code(s): E10.65 - Type 1 diabetes mellitus with hyperglycemia - Assessment and plan all Dx Assessment and Plan for all problems:: PATIENT RECEIVED ONE DOSE OF VANCOMYCIN 1500 MG OVERNIGHT. SCHEDULING NEXT DOSE FOR 01/31/21 AT 0900 WITH VANCOMYCIN 1500 MG Q36H DOSING.
--- NOTE | 2021-01-30 08:31 | P.PN_ITS ---
Internal Medicine - PN: Subj *Date: 01/30/21 *Time: 08:31 Interval history: Patient has no complaints this morning. He did have an hypoglycemic episode earlier this morning which he alerted staff to and was treated appropriately. He denies cough, abdominal pain, diarrhea Exam Vital signs and Labs for Last 24 Hours: Temp Pulse Resp BP Pulse Ox 97.0 F L 75 18 124/74 95 01/30/21 08:00 01/30/21 08:00 01/30/21 08:00 01/30/21 08:00 01/30/21 08:00 Laboratory Results - last 24 hr 01/29/21 12:03: POC Glucose 171 H 01/29/21 16:32: POC Glucose 79 01/29/21 20:53: POC Glucose 300 H 01/30/21 04:11: POC Glucose 83 01/30/21 05:10: WBC 7.9, RBC 3.75 L, Hgb 10.7 L, Hct 32.9 L, MCV 87.7, MCH 28.5, MCHC 32.5, RDW 13.4, Plt Count 219, MPV 8.9, Neut % (Auto) 54.6, Lymph % (Auto) 36.3, [place] % (Auto) 4.1, Eos % (Auto) 4.3, Baso % (Auto) 0.7, Neut # (Auto) 4.3, Lymph # (Auto) 2.9, [place] # (Auto) 0.3, Eos # (Auto) 0.3, Baso # (Auto) 0.1 01/30/21 05:10: Sodium 134 L, Potassium 3.4 L, Chloride 108 H, Carbon Dioxide 18 L, Anion Gap 11.4, BUN 53 H D, Creatinine 3.90 H, Estimated Creat Clear 29, Estimated GFR 17 L*, Est GFR ( Amer) 21 L, Glucose 133 H, Calcium 7.9 L 01/30/21 05:10: Procalcitonin 0.434 01/30/21 05:25: POC Glucose 123 H I & O for Last 24 hours: Intake & Output 01/27/21 01/28/21 01/29/21 01/30/21 11:59 11:59 11:59 11:59 Intake Total 2889 / 2889 2052 Output Total 275 / 275 Balance 2889 / 2889 1778 / 1778 Weight 160 lb 3.2 oz 178 lb 6 oz Microbiology Reports for the Last 24 Hours: Microbiology 01/28/21 22:39 Urine,Clean Catch Urine Culture - Preliminary 01/29/21 00:05 Blood Blood Culture - Preliminary - Constitutional no acute distress - *Routine Respiratory Exam Present: CTA bilaterally - *Routine Cardiovascular Exam Present: RRR - *Routine Abdominal Exam Present: soft, normoactive bowel sounds. Absent: tenderness Assessment and Plan (1) MALCOM (acute kidney injury) Status: Acute Category: Medical Code(s): N17.9 - Acute kidney failure, unspecified (2) Hypertensive emergency Status: Resolved Category: Medical Code(s): I16.1 - Hypertensive emergency (3) Transient cerebral ischemia Status: Acute Qualifiers: Transient cerebral ischemia type: unspecified Qualified Code(s): G45.9 - Transient cerebral ischemic attack, unspecified Category: Medical Code(s): G45.9 - Transient cerebral ischemic attack, unspecified (4) Diabetes mellitus, insulin dependent (IDDM), uncontrolled Status: Chronic Qualifiers: Glycemic state: with hyperglycemia Qualified Code(s): E10.65 - Type 1 diabetes mellitus with hyperglycemia Category: Medical Code(s): E10.65 - Type 1 diabetes mellitus with hyperglycemia - Assessment and plan all Dx Assessment and Plan for all problems:: 1. Patient's creatinine has increased slightly as his BUN. I do believe this is secondary to the administration of vancomycin overnight for a single positive blood culture. Vanco be discontinued. Patient be placed on cefazolin. Procalcitonin has been ordered 2. Decrease Lantus to 30 units at night
[2021-01-30 11:15] LABS: POC Glucose,Bedside 209 (70-110)
--- NOTE | 2021-01-30 15:48 | PC.NURSE ---
Pt is alert and oriented x4. He is able to verbalize needs and follow commands. He ambulated in the [place] with assist x1 and tolerated well. He is incontinent therefore he has a brief on. He has been pleasant with staff. He is able to move all extremities without difficulty. Speech is clear and appropriate. Hearing is intact. 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 He denies pain. No complaint verbalized. Will continue to monitor.
[2021-01-30 16:30] LABS: POC Glucose,Bedside 215 (70-110)
[2021-01-30 21:01] LABS: POC Glucose,Bedside 301 (70-110)
[2021-01-31] VITALS: BP 117/61; PULSE 70; PULSE 78; RESP 20; TEMP 36.9; O2SAT 99
[2021-01-31 01:20] LABS: POC Glucose,Bedside 64 (70-110)
--- NOTE | 2021-01-31 01:27 | PC.NURSE ---
Random glucose obtained this AM resulting 64. Pt was given a snack and beverage.
[2021-01-31 04:00] VITALS: BP 127/74; PULSE 80; PULSE 81; RESP 18; TEMP 36.8; O2SAT 97
[2021-01-31 05:00] VITALS: BMI 28.1
[2021-01-31 05:42] LABS: POC Glucose,Bedside 205 (70-110)
--- NOTE | 2021-01-31 06:22 | PC.NURSE ---
Pt has slept at intervals this shift. No complaints stated. FSBS 205 this AM. 7 units of humalog administered. VS have remained stable. Pt is NSR on telemetry. Lungs are diminished. BS x4. Pt is incont of urine and bowels. Brief in place. 1 soft BM reported this shift. Call light within reach. Will continue to monitor.
[2021-01-31 07:13] LABS: Basophils % 0.5 % (0.1-2.0); Eosinophils # 0.3 K/mm3 (0.0-0.4); Eosinophils % 3.9 % (0.1-12.0); Hemoglobin 11.2 g/dL (14.1-18.0); Lymphocytes # 2.9 K/mm3 (0.7-4.5); Lymphocytes % 33.5 % (10-50); Mean Corpuscular HGB Conc 32.9 g/dL (31.8-35.4); Mean Corpuscular Hemoglobin 28.7 pg (27.0-31.2); Mean Corpuscular Volume 87.4 fl (80-94); Mean Platelet Volume 9.1 fl (7.4-10.4); Monocytes # 0.4 K/mm3 (0.1-1.0); Monocytes % 5.1 % (1.7-9.3); Neutrophils # 4.9 K/mm3 (1.8-7.8); Platelet Count 217 K/mm3 (142-424); Red Blood Count 3.89 M/mm3 (4.60-6.20); Red Cell Distribution Width 13.4 % (11.5-17.5); White Blood Count 8.7 K/mm3 (4.8-10.8)
[2021-01-31 07:22] LABS: Anion Gap 9.8 mEq/L (5-15); Blood Urea Nitrogen 49 mg/dl (9-20); Calcium 8.3 mg/dl (8.4-10.2); Carbon Dioxide 17 mmol/L (22.0-30.0); Chloride 112 mmol/L (98-107); Creatinine Clearance Estimated 30 mL/min (50-200); GFR (African American) 21 ML/MIN (>60); Glucose 136 mg/dl (74-100); Potassium 3.8 mmoL/L (3.5-5.1); Sodium 135 mmol/L (136-145)
[2021-01-31 07:24] LABS: Estimated Glomerular Filt Rate 17 ml/min (>60)
--- NOTE | 2021-01-31 07:41 | HMH.DCSUM ---
General - General Admission date:: 01/29/21 Discharge date: 01/31/21 HPI HPI: 40-year-old type I diabetic since the age of 7 presented to the emergency department after acute onset of tinnitus followed by loss of hearing at home with family members noting garbled speech and aphasia. Patient was brought to the ER where he was found to be severely hypertensive with a glucose greater than the thousand. Patient's last A1c was greater than 14. Patient reports this morning yesterday was a fairly normal day until the rather sudden onset of his symptoms. In the emergency department he was started on a Cardene drip for his hypertensive emergency. Patient was given IV fluids and IV insulin to begin reducing his blood sugars. Patient has diabetic retinopathy, neuropathy and nephropathy. This morning he denies any complaints. Patient claims a history of seizures but has never been treated for seizures nor taken any antiepileptics Hospital Course Hospital Course: Patient was admitted for observation. He was placed on a nicardipine drip and admitted to the stepdown unit. Patient's blood pressure responded nicely and returned to a normal range. Encephalopathic symptoms as well as tinnitus resolved. Stroke work-up was begun and patient had no significant carotid obstruction, renal artery stenosis, and had a normal ejection fraction on his echocardiogram without valvular disease. Patient was continued on his amlodipine and carvedilol was increased to 25 mg twice daily. This will be his regimen at discharge. Patient had acute kidney injury. After IV fluids patient's creatinine decreased to 3.8 where it remained. On admission patient had no signs of an infection. On the a single blood culture, anaerobic bottle, grew gram-positive cocci indicative of staph. Patient was given a single dose of vancomycin and then cefazolin. 24 hours later patient's blood culture remained unchanged with the aerobic bottle from that set showing no growth. His second set of blood cultures were no growth. This was considered a contaminant. Patient is a longtime type I diabetic. Glucose was over 1000 on presentation. With IV insulin and fluids glucose decreased to 400s. Patient was continued on his Lantus along with high intensity sliding scale. He had 2 hypoglycemic events with high intensity sliding scale insulin. This was decreased to low intensity. At discharge he will continue his Lantus and we will discuss further treatment with mealtime insulins at follow-up as patient believes these are the cause of his episodes of DKA On January 31 patient was discharged home. Objective Vital signs: Temp Pulse Resp BP Pulse Ox 98.3 F 81 18 127/74 97 01/31/21 04:00 01/31/21 04:00 01/31/21 04:00 01/31/21 04:00 01/31/21 04:00 no acute distress - *Routine Respiratory Exam Present: CTA bilaterally - *Routine Cardiovascular Exam Present: RRR - *Routine Abdominal Exam Present: soft, normoactive bowel sounds. Absent: tenderness - *Routine Extremities Exam Comments: Edema of the left hand Results Labs on day of discharge: Labs from last 24 hours 01/31/21 01/31/21 01/31/21 06:23 06:23 05:27 WBC 8.7 RBC 3.89 L Hgb 11.2 L Hct 34.0 L MCV 87.4 MCH 28.7 MCHC 32.9 RDW 13.4 Plt Count 217 MPV 9.1 Neut % (Auto) 57.0 Lymph % (Auto) 33.5 [place] % (Auto) 5.1 Eos % (Auto) 3.9 Baso % (Auto) 0.5 Neut # (Auto) 4.9 Lymph # (Auto) 2.9 [place] # (Auto) 0.4 Eos # (Auto) 0.3 Baso # (Auto) 0.0 Sodium 135 L Potassium 3.8 Chloride 112 H Carbon Dioxide 17 L Anion Gap 9.8 BUN 49 H Creatinine 3.90 H Estimated Creat Clear 30 Estimated GFR 17 L* Est GFR ( Amer) 21 L Glucose 136 H POC Glucose 205 H Calcium 8.3 L Procalcitonin 01/31/21 01/30/21 01/30/21 01:12 20:32 16:17 WBC RBC Hgb Hct MCV MCH
[2021-01-31 07:53] VITALS: BP 127/67; PULSE 90; RESP 17; TEMP 36.7; O2SAT 100
[2021-01-31 08:00] VITALS: PULSE 80
[2021-03-17 14:13] LABS: POC Glucose,Bedside > 600 (70-110)
== END 2021-01-31 11:34 | disposition home or self-care (01) | DRG 638 ==
LOC: ER 22:26 → 2ND 01-29 00:09
PROVIDERS: Admitting Provider Internal Medicine Adolescent Medicine; Emergency Provider Emergency Medicine; Visit Provider Family Medicine
DX: E10.65 Type 1 diabetes mellitus with hyperglycemia (principal); I16.1 Hypertensive emergency; R47.01 Aphasia; N17.9 Acute kidney failure, unspecified; I67.82 Cerebral ischemia; I10 Essential (primary) hypertension; Z79.4 Long term (current) use of insulin; E10.649 Type 1 diabetes mellitus with hypoglycemia without coma; Z88.0 Allergy status to penicillin; E78.5 Hyperlipidemia, unspecified; E10.319 Type 1 diabetes mellitus with unspecified diabetic retinopathy without macular edema; E10.40 Type 1 diabetes mellitus with diabetic neuropathy, unspecified; E10.21 Type 1 diabetes mellitus with diabetic nephropathy; Z87.891 Personal history of nicotine dependence; Z87.440 Personal history of urinary (tract) infections; R29.810 Facial weakness; R47.1 Dysarthria and anarthria
CPT/HCPCS: 36415; 70450; 71046; 80048; 80053; 81001; 82009; 82803; 82962; 83605; 83735; 84145; 84484; 85025; 85651; 86140; 87040; 87077; 87086; 87186; 87581; 87633; 87798; 93005; 93306; 93880; 93976; 95816; 96365; 96366; 96367; 96375; 99284; J3370

== ENCOUNTER → 2021-03-30 16:28 | Outpatient (CLI) | payer OTHER, SELFPAY ==
[2021-03-30 17:19] LABS: Blood Urea Nitrogen 57 mg/dl (9-20); Estimated Glomerular Filt Rate 14 ml/min (>60); GFR (African American) 17 ML/MIN (>60)
== END ==
PROVIDERS: Visit Provider Family Medicine
DX: R10.11 Right upper quadrant pain (principal); R39.89 Other symptoms and signs involving the genitourinary system; E10.42 Type 1 diabetes mellitus with diabetic polyneuropathy; Z79.4 Long term (current) use of insulin
CPT/HCPCS: 82565; 84520

== ENCOUNTER → 2021-03-31 09:48 | Outpatient (CLI) | payer OTHER, SELFPAY ==
--- NOTE | 2021-03-31 09:55 | CT_ITS ---
PROCEDURE: CT ABDOMEN PELVIS WO CON CLINICAL INDICATION: Ruq pain xweeks Air in urine [id number] Hx of prostate surgery x2yrs COMPARISON: CT CT ABDOMEN PELVIS WO CON from 09/27/[address] ABDOMEN PELVIS WO CON from 06/11/2020 TECHNIQUE: Axial images obtained with sagittal and coronal reformats. All CT scans at the facility use one or more dose reduction, viz: automated exposure control, ma/kV adjustment per patient size (including targeted exams where dose is matched to indication, i.e. head), or iterative reconstruction technique. FINDINGS: LOWER THORAX: Mild atelectatic or fibrotic changes are present in the left lung base. ABDOMEN & PELVIS: The liver, spleen, adrenal glands, and pancreas have unremarkable unenhanced appearance. Gallstone is noted. There is diffuse vascular calcification. There is mild bilateral hydronephrosis and hydroureter. Small amount of gas is noted in the upper pole of the left kidney. Prominent urinary bladder wall thickening noted. Moderate amount of gas is present in the urinary bladder. There is also mixed gas and soft tissue density in the prostate bed region No intestinal obstruction or free air is evident. Bowel gas pattern is nonspecific with nondistended fluid-filled loops of small bowel with a few air-fluid levels. No evidence of appendicitis or diverticulitis. IMPRESSION: 1. Mild bilateral renal collecting system and ureteral ectasia with prominent thickening of the urinary bladder wall. Air-fluid level is present in the urinary bladder and there is small amount of gas in the upper pole left kidney. Mixed gas and fluid density noted in the prostate bed region possibly within a cystocele. The gas in the bladder and urinary collecting system could be due to infection. Vesico intestinal fistula is also consideration. Mixed gas and soft tissue density noted in the prostate bad/lower bladder region and could be within a cystocele from the previous prostatectomy. Cystoscopy may provide further evaluation. Repeat exam with both IV and oral contrast may also be of further value. 2. Nondistended fluid-filled loops of small bowel with a few air-fluid levels which could be due to mild ileus or enteritis. There is a mild amount of retained colonic feces is well. 3. Cholelithiasis Dictated by: Layton Pires MD 04/01/2021 09:41 Layton Pires MD in [place] 04/01/2021 09:41
== END ==
PROVIDERS: PCP Family Medicine; Visit Provider Family Medicine
DX: R10.11 Right upper quadrant pain (principal); R39.89 Other symptoms and signs involving the genitourinary system
CPT/HCPCS: 74176

== ENCOUNTER 2021-04-08 10:52 | Emergency (ER) | payer OTHER, SELFPAY ==
[2021-04-08 10:52] VITALS: BP 122/68; PULSE 75; RESP 18; TEMP 36.5; O2SAT 99; BMI 26.3
--- NOTE | 2021-04-08 11:09 | CT_ITS ---
PROCEDURE: CT ABDOMEN PELVIS WO CON CLINICAL INDICATION: pain Left-sided abdominal pain COMPARISON: CT CT ABDOMEN PELVIS WO CON from 06/11/[address] ABDOMEN PELVIS WO CON from 03/31/2021 TECHNIQUE: Axial images obtained with sagittal and coronal reformats. All CT scans at the facility use one or more dose reduction, viz: automated exposure control, ma/kV adjustment per patient size (including targeted exams where dose is matched to indication, i.e. head), or iterative reconstruction technique. FINDINGS: LOWER THORAX: No acute finding ABDOMEN & PELVIS: The liver has an unremarkable unenhanced appearance. Gallstones are present. No acute finding of the spleen or pancreas. There is diffuse vascular calcification. There is severe left hydronephrosis and hydroureter. A Wise catheter is present with severe thickening of the urinary bladder wall. Small amount of gas is present in the urinary bladder lumen and within the left ureter and left renal calices. No renal or ureteral calculi are evident. No evidence of appendicitis. The bowel gas pattern is nonspecific with no evidence of intestinal obstruction or free air. There is diffuse vascular and seminal vesicle calcification within the pelvis. There remains some soft tissue and gas debris within the region of the prostate which could be due to infection or postsurgical change no evidence of diverticulitis. There is a mild amount of retained colonic feces. IMPRESSION: 1. Interval insertion of a Wise catheter. There remains severe thickening of the urinary bladder wall with gas in the lumen of the urinary bladder and left ureter and renal calices which could be related to gas-forming infection, vesicle enteric fistula, or iatrogenic insertion of air within the bladder from Wise catheter insertion. There is severe left hydronephrosis and hydroureter 2. There remains some debris and gas density within the prostate area which could be due to gas-forming infection or postsurgical change Dictated by: Layton Pires MD 04/08/2021 12:52 Layton Pires MD in [place] 04/08/2021 12:52
[2021-04-08 11:48] LABS: POC Glucose,Bedside 82 (70-110)
[2021-04-08 11:56] LABS: Basophils # 0.1 K/mm3 (0-0.2); Basophils % 0.8 % (0.1-2.0); Eosinophils # 0.5 K/mm3 (0.0-0.4); Eosinophils % 5.3 % (0.1-12.0); Hematocrit 42.7 % (42.0-52.0); Hemoglobin 14.5 g/dL (14.1-18.0); Lymphocytes % 20.3 % (10-50); Mean Corpuscular HGB Conc 33.8 g/dL (31.8-35.4); Mean Corpuscular Volume 85.9 fl (80-94); Mean Platelet Volume 8.3 fl (7.4-10.4); Monocytes # 0.4 K/mm3 (0.1-1.0); Monocytes % 3.8 % (1.7-9.3); Neutrophils # 6.7 K/mm3 (1.8-7.8); Neutrophils % 69.8 % (37.0-80.0); Platelet Count 286 K/mm3 (142-424); Red Blood Count 4.98 M/mm3 (4.60-6.20); Red Cell Distribution Width 13.3 % (11.5-17.5); White Blood Count 9.6 K/mm3 (4.8-10.8)
[2021-04-08 12:00] VITALS: BP 104/59; PULSE 80; O2SAT 99
[2021-04-08 12:06] LABS: Chloride 107 mmol/L (98-107); Sodium 139 mmol/L (136-145)
[2021-04-08 12:07] LABS: Potassium 3.6 mmoL/L (3.5-5.1)
[2021-04-08 12:09] LABS: Alanine Aminotransferase 31 U/L (12-78); Albumin/Globulin Ratio 1.2 (1.1-1.8); Alkaline Phosphatase 164 U/L (38-126); Anion Gap 13.6 mEq/L (5-15); Aspartate Amino Transferase 34 U/L (17-59); Bilirubin,Total 0.4 mg/dl (0.2-1.3); Blood Urea Nitrogen 75 mg/dl (9-20); Carbon Dioxide 22 mmol/L (22.0-30.0); Creatinine Clearance Estimated 18 mL/min (50-200); Estimated Glomerular Filt Rate 11 ml/min (>60); GFR (African American) 13 ML/MIN (>60); Globulin 3.3 g/dL (1.3-3.2); Total Protein,Serum 7.3 g/dl (6.3-8.2)
[2021-04-08 12:10] LABS: Calcium 9.1 mg/dl (8.4-10.2); Glucose 66 mg/dl (74-100)
[2021-04-08 12:23] LABS: Microscopic, Urine URINE MICROSCOPIC (MICROSCOPIC)
--- NOTE | 2021-04-08 12:28 | PC.NURSE ---
Radiology states that the pt gfr is 11, MD aware and ok to do CT without contrast
[2021-04-08 12:30] VITALS: BP 100/54; PULSE 76; O2SAT 98
--- NOTE | 2021-04-08 12:55 | PC.NURSE ---
NOTIFIED OF CRITICAL LABS
[2021-04-08 12:56] LABS: Appearance,Urine CLEAR (Clear); Blood, Urine 3+ (Negative); Color,Urine YELLOW (Yellow); Glucose,Urine (UA) 3+ (Negative); Ketones,Urine TRACE (Negative); Leukocyte Esterase,Urine 2+ (Negative); Nitrate,Urine POSITIVE (Negative); Protein,Urine 3+ (Negative); Urobilinogen,Urine 0.2 EU/dl (0.2)
[2021-04-08 13:00] VITALS: BP 100/54
[2021-04-08 13:05] LABS: Bilirubin,Urine 1+ (Negative)
[2021-04-08 13:06] LABS: Bacteria,Urine 1+ /lpf; RBC,Urine 20-50 #/hpf (0-3)
[2021-04-08 13:30] VITALS: BP 102/59; PULSE 73; O2SAT 98
[2021-04-08 13:30] LABS: Lactic Acid 1.7 mmol/L (0.7-2.1)
--- NOTE | 2021-04-08 13:41 | PC.NURSE ---
dr rekha bellamy
--- NOTE | 2021-04-08 14:32 | HMH.EDGENADL ---
ED Disposition Clinical Impression: Urinary problem, Dehydration, Diabetes mellitus, insulin dependent (IDDM), uncontrolled Urinary tract infection associated with catheterization of urinary tract Qualifiers: Indwelling urinary catheter type: unspecified Encounter type: initial encounter Qualified Code(s): T83.511A - Infection and inflammatory reaction due to indwelling urethral catheter, initial encounter; N39.0 - Urinary tract infection, site not specified Disposition: Home, Self-Care Condition on Discharge: Fair Instructions: DI for Acute Abdominal Pain Referrals: Miriam Hairston APRN [Primary Care Provider] - - Critical Care Critical Care Time: No Attestation: On 04/08/21, the high probability of a clinically significant, sudden or life threatening deterioration of the following system(s) required my full and direct attention, intervention and personal management. The time I documented below is in addition to time spent performing reported procedures but includes the following listed in this critical care notation. Medical Decision Making - Medical Records Medical records reviewed: Yes: I reviewed the patient's medical records. - Michael Inquiry Pt receiving controlled substance: No Vital Signs: 04/08/21 10:52 04/08/21 12:00 04/08/21 12:30 Temperature 97.7 F Temperature Source Oral Pulse Rate 80 76 Pulse Rate [Left Radial] 75 Respiratory Rate 18 Blood Pressure 104/59 L 100/54 L Blood Pressure [Right Arm] 122/68 Blood Pressure Mean Blood Pressure Mean [Right Arm] 86 Blood Pressure Source [Right Arm] Automatic Cuff Blood Pressure Position [Right Arm] Sitting 02 Sat by Pulse Oximetry 99 99 98 Oxygen Delivery Method Room Air 04/08/21 13:00 04/08/21 13:30 Temperature Temperature Source Pulse Rate 73 Pulse Rate [Left Radial] Respiratory Rate Blood Pressure 100/54 L 102/59 L Blood Pressure [Right Arm] Blood Pressure Mean 69 Blood Pressure Mean [Right Arm] Blood Pressure Source [Right Arm] Blood Pressure Position [Right Arm] 02 Sat by Pulse Oximetry 98 Oxygen Delivery Method - Lab Data Lab results reviewed: Yes: I reviewed the patient's lab results. Lab Results 04/08/21 11:24: POC Glucose 82 04/08/21 11:41: WBC 9.6, RBC 4.98, Hgb 14.5, Hct 42.7, MCV 85.9, MCH 29.0, MCHC 33.8, RDW 13.3, Plt Count 286, MPV 8.3, Neut % (Auto) 69.8, Lymph % (Auto) 20.3, [place] % (Auto) 3.8, Eos % (Auto) 5.3, Baso % (Auto) 0.8, Neut # (Auto) 6.7, Lymph # (Auto) 2.0, [place] # (Auto) 0.4, Eos # (Auto) 0.5 H, Baso # (Auto) 0.1 04/08/21 11:41: Sodium 139, Potassium 3.6, Chloride 107, Carbon Dioxide 22, Anion Gap 13.6, BUN 75 H, Creatinine 5.80 H, Estimated Creat Clear 18, Estimated GFR 11 L*, Est GFR ( Amer) 13 L*, Glucose 66 L, Calcium 9.1, Total Bilirubin 0.4, AST 34, ALT 31, Alkaline Phosphatase 164 H, Total Protein 7.3, Albumin 4.0, Globulin 3.3 H, Albumin/Globulin Ratio 1.2 04/08/21 12:20: Urine Color Yellow, Urine Appearance Clear, Urine pH 6.0, Ur Specific [place] 1.020, Urine Protein 3+, Urine Glucose (UA) 3+, Urine Ketones Trace, Urine Blood 3+, Urine Nitrate Positive, Urine Bilirubin 1+ A, Urine Urobilinogen 0.2, Ur Leukocyte Esterase 2+ A, Urine RBC 20-50, Urine WBC 5-10, Ur Squamous Epith Cells 3-5, Urine Bacteria 1+ 04/08/21 12:34: Lactate 1.7 Result diagrams: 04/08/21 11:41 04/08/21 11:41 Orders (Tests/Meds): ED MEDICATIONS Generic Name Dose Route Start Last Admin Trade Name Hermila PRN Reason Stop Dose Admin Ceftriaxone Sodium 2 gm/ 100 mls @ 200 mls/hr 04/08/21 14:17 04/08/21 14:20 Sodium Chloride IV 04/08/21 14:46 200 mls/hr ONCE ONE Administration Protocol ORDERS Category Date Time Status Covid-19 Nasal PCR ([facility]) Routine Lab 04/08/21 12:57 Received Blood Culture Stat Micro 04/08/21 12:34 Received Urine Culture Stat Micro 04/08/21 12:20 Received Medical Decision Narrative: 40-year-old with end-stage renal diseas
[2021-04-08 14:55] VITALS: BP 110/65; PULSE 82; RESP 19; TEMP 36.5; O2SAT 100
--- NOTE | 2021-04-08 14:57 | PC.NURSE ---
Frandy taken out, pt tolerated well. Pt understands that he is to fu at office in the AM.
== END 2021-04-08 14:57 | disposition home or self-care (01) ==
PROVIDERS: Emergency Provider Emergency Medicine; PCP Nurse Practitioner Family
DX: E86.0 Dehydration (principal); T83.511A Infection and inflammatory reaction due to indwelling urethral catheter, initial encounter; E10.649 Type 1 diabetes mellitus with hypoglycemia without coma; E10.22 Type 1 diabetes mellitus with diabetic chronic kidney disease; I12.0 Hypertensive chronic kidney disease with stage 5 chronic kidney disease or end stage renal disease; N18.6 End stage renal disease; Z79.4 Long term (current) use of insulin; E78.5 Hyperlipidemia, unspecified; Z79.899 Other long term (current) drug therapy
CPT/HCPCS: 74176; 80053; 81001; 82962; 83605; 85025; 87040; 87077; 87086; 87088; 87186; 96374; 99283; U0003

== ENCOUNTER → 2021-04-16 14:02 | Outpatient (CLI) | payer OTHER, SELFPAY ==
--- NOTE | 2021-04-16 14:06 | XR_ITS ---
PROCEDURE: XR HAND RT MIN 3V CLINICAL INDICATION: trigger finger of right hand COMPARISON: CR XR HAND RT MIN 3V from 12/04/2020 CR XR HAND RT MIN 3V from 12/11/2020 CR XR HAND RT MIN 3V from 12/25/2020 FINDINGS: There is an old healed fracture at the distal aspect of the 4th metacarpal. There is minimal lateral displacement of the distal aspect of the 4th metacarpal by approximately 2-3 mm. There is overlying callus formation. There is generalized vascular calcification. The joint spaces are well-preserved. No significant degenerative/arthritic changes. No erosive changes evident. Other findings:None. IMPRESSION: Healing fracture 4th metacarpal Dictated by: Layton Pires MD 04/16/2021 15:16 Layton Pires MD in [place] 04/16/2021 15:16
== END ==
PROVIDERS: PCP Family Medicine; Visit Provider Orthopaedic Surgery
DX: S62.339A Displaced fracture of neck of unspecified metacarpal bone, initial encounter for closed fracture (principal)
CPT/HCPCS: 73130

== ENCOUNTER → 2021-07-16 12:56 | Outpatient (CLI) | payer OTHER, SELFPAY | PROVIDERS: Visit Provider Nurse Practitioner Family | DX: Z20.822 Contact with and (suspected) exposure to COVID-19 (principal) | CPT/HCPCS: C9803; U0003; U0005 ==

== ENCOUNTER → 2021-08-19 16:35 | Outpatient (CLI) | payer OTHER, SELFPAY | PROVIDERS: PCP Family Medicine; Visit Provider Nurse Practitioner | DX: Z20.822 Contact with and (suspected) exposure to COVID-19 (principal) | CPT/HCPCS: C9803; U0003; U0005 ==

== ENCOUNTER → 2021-08-20 10:03 | Outpatient (CLI) | payer OTHER, SELFPAY | PROVIDERS: Visit Provider Nurse Practitioner Family | DX: Z20.822 Contact with and (suspected) exposure to COVID-19 (principal) | CPT/HCPCS: C9803; U0003; U0005 ==

== ENCOUNTER → 2021-09-19 21:43 | Outpatient (CLI) | payer OTHER, SELFPAY | PROVIDERS: Visit Provider Emergency Medicine | DX: Z20.822 Contact with and (suspected) exposure to COVID-19 (principal) | CPT/HCPCS: C9803; U0003; U0005 ==

== ENCOUNTER 2021-09-20 20:38 | Emergency (ER) | payer OTHER, SELFPAY ==
[2021-09-20 20:38] VITALS: BP 185/116; PULSE 122; RESP 22; TEMP 36.8; O2SAT 92; BMI 25.5
--- NOTE | 2021-09-20 20:42 | ECG_ITS ---
APPROVED REPORT Exam: Resting ECG HR:118 bpm ECG Measurements Heart Rate 118 AXES CO 130 P 52 QRSd 78 QRS 15 QT 344 T 164 QTc 482 Conclusion Sinus tachycardia with premature atrial complexes T wave abnormality, consider lateral ischemia Abnormal ECG Electronically signed by : Sid Grossman MD 09/21/2021 22:09:48
--- NOTE | 2021-09-20 20:56 | XR_ITS ---
PROCEDURE INFORMATION: Exam: XR Chest Exam date and time: 09/20/2021 8:56 PM Age: 40 years old Clinical indication: Patient HX: Cough and shortness of breath for 2 days. No chest surgeries. Non-smoker per patient. ; Additional info: SOA TECHNIQUE: Imaging protocol: XR of the chest. Views: 2 views. COMPARISON: CR XR CHEST 2V 01/28/2021 11:43 PM FINDINGS: Lungs: Patchy bibasilar opacities. Pleural spaces: Small bilateral pleural effusions. Heart/Mediastinum: Unremarkable. No cardiomegaly. Bones/joints: Unremarkable. IMPRESSION: Patchy bibasilar opacities and small effusions. Findings are concerning for infection.
--- NOTE | 2021-09-20 20:57 | HMH.EDGENADL ---
ED Disposition Clinical Impression: ESRD (end stage renal disease) Fluid overload Qualifiers: Hypervolemia type: other Qualified Code(s): E87.79 - Other fluid overload Disposition: Xfer Short-Term Hosp Condition on Discharge: Fair Referrals: Sid Parr MD [Primary Care Provider] - - Critical Care Critical Care Time: No Attestation: On 09/20/21, the high probability of a clinically significant, sudden or life threatening deterioration of the following system(s) required my full and direct attention, intervention and personal management. The time I documented below is in addition to time spent performing reported procedures but includes the following listed in this critical care notation. Medical Decision Making - Medical Records Medical records reviewed: Yes: I reviewed the patient's medical records. - Michael Inquiry Pt receiving controlled substance: No Vital Signs: 09/20/21 20:38 Temperature 98.2 F Temperature Source Oral Pulse Rate [Apical] 122 H Respiratory Rate 22 Blood Pressure [Right Arm] 185/116 H Blood Pressure Mean [Right Arm] 139 Blood Pressure Source [Right Arm] Automatic Cuff Blood Pressure Position [Right Arm] Sitting 02 Sat by Pulse Oximetry 92 L Oxygen Delivery Method Room Air - Lab Data Lab results reviewed: Yes: I reviewed the patient's lab results. Lab Results 09/20/21 20:55: WBC 15.8 H, RBC 4.00 L, Hgb 11.7 L, Hct 35.9 L, MCV 89.8, MCH 29.2, MCHC 32.5, RDW 13.5, Plt Count 340, MPV 9.6, Neut % (Auto) 90.6 H, Lymph % (Auto) 5.4 L, Shannon % (Auto) 3.4, Eos % (Auto) 0.2, Baso % (Auto) 0.3, Neut # (Auto) 14.3 H, Lymph # (Auto) 0.9, Shannon # (Auto) 0.5, Eos # (Auto) 0.0, Baso # (Auto) 0.1 09/20/21 20:55: Sodium 140, Potassium 4.1, Chloride 107, Carbon Dioxide 22, Anion Gap 15.1 H, BUN 65 H, Creatinine 8.70 H, Estimated Creat Clear 12, Estimated GFR 7 L*, Est GFR ( Amer) 8 L*, Glucose 75, Calcium 7.0 L, Total Bilirubin 0.2, AST 37, ALT 32, Alkaline Phosphatase 184 H, NT-Pro-B Natriuret Pep 74953 H, Total Protein 6.9, Albumin 3.7, Globulin 3.2, Albumin/Globulin Ratio 1.2 09/20/21 20:55: POC Glucose 72 09/20/21 21:45: SARS-CoV-2 (PCR) Not detected, Influenza A Untype (PCR) Not detected, Influenza Type B (PCR) Not detected Result diagrams: 09/20/21 20:55 09/20/21 20:55 Orders (Tests/Meds): ED MEDICATIONS Generic Name Dose Route Start Last Admin Trade Name Freq PRN Reason Stop Dose Admin Nitroglycerin 0.4 mg 09/20/21 20:54 09/20/21 20:55 Nitroglycerin 0.4mg Sl Tablet SL 10/20/21 20:53 0.4 mg [id number] PRN Administration Chest Pain ORDERS Category Date Time Status Complete Blood Count Auto Diff Stat Lab 09/20/21 20:55 Results Covid-19 IgG/IgM ([facility]) Routine Lab 09/20/21 21:39 Received UA [Urinalysis and Microscopic] Stat Lab 09/20/21 22:31 Ordered Medical Decision Narrative: Patient is a 40-year-old male with a past medical history of diabetes, renal failure who is presenting to the emergency department with chief complaint of shortness of air which is worse when laying back. Differential diagnosis in this patient includes renal failure, hyperglycemia, fluid overload, heart failure among others. Given this plan to order CBC, CMP, BNP, chest x-ray, EKG, ubixw-vy-tumi glucose. CMP shows significant worsening of the patient's creatinine with level at 8.7 which is significantly increased from the patient's baseline. Gave patient nitro due to hypertension, pulmonary fluid. Chest x-ray also shows bilateral pulmonary infiltrate, discussed patient with the physician project controls scheduler here, stated that given patient's significant creatinine rise as well as need for dialysis patient be better served in an area with the clock mechanic. Given this called transfer center at , unfortunately was unable to accept the patient due to their bed situation. Called [facility] he was also unable to accept the patient, [facility] accepted the patient, discussed transfer with patient he
[2021-09-20 21:00] VITALS: BP 169/96; PULSE 117; O2SAT 95
[2021-09-20 21:03] LABS: POC Glucose,Bedside 72 (70-110)
[2021-09-20 21:06] LABS: Basophils # 0.1 K/mm3 (0-0.2); Basophils % 0.3 % (0.1-2.0); Eosinophils % 0.2 % (0.1-12.0); Hematocrit 35.9 % (42.0-52.0); Hemoglobin 11.7 g/dL (14.1-18.0); Lymphocytes # 0.9 K/mm3 (0.7-4.5); Lymphocytes % 5.4 % (10-50); Mean Corpuscular HGB Conc 32.5 g/dL (31.8-35.4); Mean Corpuscular Hemoglobin 29.2 pg (27.0-31.2); Mean Corpuscular Volume 89.8 fl (80-94); Mean Platelet Volume 9.6 fl (7.4-10.4); Monocytes # 0.5 K/mm3 (0.1-1.0); Monocytes % 3.4 % (1.7-9.3); Neutrophils # 14.3 K/mm3 (1.8-7.8); Neutrophils % 90.6 % (37.0-80.0); Platelet Count 340 K/mm3 (142-424); Red Cell Distribution Width 13.5 % (11.5-17.5); White Blood Count 15.8 K/mm3 (4.8-10.8)
[2021-09-20 21:08] LABS: MANUAL DIFFERENTIAL MANUAL DIFFERENTIAL (MANUAL DIFF)
[2021-09-20 21:17] LABS: Chloride 107 mmol/L (98-107); Potassium 4.1 mmoL/L (3.5-5.1); Sodium 140 mmol/L (136-145)
[2021-09-20 21:19] LABS: Blood Urea Nitrogen 65 mg/dl (9-20); Creatinine Clearance Estimated 12 mL/min (50-200); Estimated Glomerular Filt Rate 7 ml/min (>60); GFR (African American) 8 ML/MIN (>60)
[2021-09-20 21:20] LABS: Alanine Aminotransferase 32 U/L (12-78); Albumin Level 3.7 g/dl (3.5-5.0); Albumin/Globulin Ratio 1.2 (1.1-1.8); Alkaline Phosphatase 184 U/L (38-126); Anion Gap 15.1 mEq/L (5-15); Aspartate Amino Transferase 37 U/L (17-59); Bilirubin,Total 0.2 mg/dl (0.2-1.3); Carbon Dioxide 22 mmol/L (22.0-30.0); Globulin 3.2 g/dL (1.3-3.2); Glucose 75 mg/dl (74-100); Total Protein,Serum 6.9 g/dl (6.3-8.2)
[2021-09-20 21:29] LABS: NT Pro Brain Natriuretic Pep. 22200 pg/mL (0-125)
[2021-09-20 21:30] VITALS: BP 176/109; PULSE 114; O2SAT 94
--- NOTE | 2021-09-20 21:37 | PC.NURSE ---
speaking with at this time in regards to admission
--- NOTE | 2021-09-20 21:40 | PC.NURSE ---
[facility] declines admission, requesting pt be transferred
[2021-09-20 21:53] LABS: Coronavirus 19, PCR Not Detected (NotDetected); Influenza A, PCR Not Detected (NotDetected); Influenza B, PCR Not Detected (NotDetected)
[2021-09-20 22:00] VITALS: BP 185/113; PULSE 115; O2SAT 94
--- NOTE | 2021-09-20 22:21 | PC.NURSE ---
[facility] has accepted transfer to [place], 12 min ETA after departure. They will call back when they take off
--- NOTE | 2021-09-20 22:23 | PC.NURSE ---
House notified of flight status info.
[2021-09-20 22:33] LABS: Lymphocytes % 7 % (10-50); Monocytes % 3 % (2-9); Neutrophils % 90 % (42-76); Platelet Estimate Normal; RBC Morphology Normal; Total Cells Counted 100
[2021-09-20 22:33] LABS: Coronavirus 19 IgG Antibody Positive (Negative); Coronavirus 19 IgM Antibody Negative (Negative)
--- NOTE | 2021-09-20 22:34 | PC.NURSE ---
contacted and placed on waiting list. [facility] contacted and they do not have any beds available. [facility] accepts pt. Dr.Casey Adame accepting. Report called to Adam in ED. [facility] contacted at 2220 and state they have a 12 min ETA.
[2021-09-20 22:36] LABS: Microscopic, Urine URINE MICROSCOPIC (MICROSCOPIC)
[2021-09-20 22:37] LABS: Appearance,Urine CLOUDY (Clear); Bilirubin,Urine Negative (Negative); Blood, Urine 2+ (Negative); Color,Urine YELLOW (Yellow); Glucose,Urine (UA) Negative (Negative); Ketones,Urine Negative (Negative); Leukocyte Esterase,Urine 1+ (Negative); Nitrate,Urine Negative (Negative); Protein,Urine 3+ (Negative); Specific Gravity, Urine 1.025 (1.005-1.030); Urobilinogen,Urine 0.2 EU/dl (0.2)
--- NOTE | 2021-09-20 22:51 | PC.NURSE ---
[facility] here and report given to flight crew.
[2021-09-20 22:52] VITALS: BP 196/118; PULSE 112; RESP 21; TEMP 36.9; O2SAT 94
[2021-09-20 23:05] LABS: Bacteria,Urine 4+ /lpf; Squamous Epithelial Cell,Urine Occasional #/hpf (0-5); WBC,Urine 20-50 #/hpf (0-3)
== END 2021-09-20 22:58 | disposition short-term general hospital (02) ==
PROVIDERS: Urology; Emergency Provider Emergency Medicine; PCP Family Medicine
DX: E87.79 Other fluid overload; N18.6 End stage renal disease
CPT/HCPCS: 71046; 80053; 81001; 82962; 83880; 85007; 85025; 86328; 87086; 87088; 87186; 93005; 99284; C9803; U0003; U0005

== ENCOUNTER 2021-12-06 22:40 | Emergency (ER) | payer OTHER, SELFPAY ==
[2021-12-06 22:33] VITALS: BP 208/130; PULSE 86; RESP 18; TEMP 36.7; O2SAT 98; BMI 23.0
[2021-12-06 22:53] VITALS: BMI 23.0
--- NOTE | 2021-12-06 22:53 | CT_ITS ---
PROCEDURE INFORMATION: Exam: CT Head Without Contrast Exam date and time: 12/06/2021 10:53 PM Age: 41 years old Clinical indication: Speech disturbance; Slurred speech TECHNIQUE: Imaging protocol: Computed tomography of the head without contrast. Radiation optimization: All CT scans at this facility use at least one of these dose optimization techniques: automated exposure control; mA and/or kV adjustment per patient size (includes targeted exams where dose is matched to clinical indication); or iterative reconstruction. COMPARISON: CT HEAD/BRAIN WO CON 01/28/2021 9:32 PM FINDINGS: Brain: No loss of mortensen-white differentiation or evidence of acute ischemia. No mass effect or midline shift. No intracranial hemorrhage. Cerebral ventricles: Within expected limits for age and brain volume status. Basal cisterns are patent. Paranasal sinuses: Trace nonaggressive mucosal thickening in the ethmoid sinuses. Mastoid air cells: Visualized mastoid air cells are well aerated. Vasculature: Scattered cerebrovascular calcifications. Bones/joints: No depressed or calvarial fracture. Soft tissues: Unremarkable. IMPRESSION: No evidence of an acute intracranial abnormality. No significant change since 01/28/2021.
--- NOTE | 2021-12-06 22:53 | XR_ITS ---
PROCEDURE INFORMATION: Exam: XR Chest Exam date and time: 12/06/2021 10:53 PM Age: 41 years old Clinical indication: Other: Slurred speech; Prior surgery TECHNIQUE: Imaging protocol: XR of the chest. Views: 1 view. COMPARISON: CR XR CHEST 2V 09/20/2021 8:54 PM FINDINGS: Tubes, catheters and devices: There is a right dual lumen central venous catheter with tips near the superior cavoatrial junction. Lungs: Gikn-oi-zpqaalsq pulmonary edema. Bibasilar consolidation, probably compressive atelectasis (although pneumonia is possible in the appropriate setting). Pleural spaces: Small to moderate size bilateral pleural effusions. No pneumothorax. Heart/Mediastinum: Normal heart size. Bones/joints: Unremarkable. IMPRESSION: 1. Nvjb-sd-wsmpviaa pulmonary edema. Small to moderate bilateral pleural effusions. 2. Bibasilar consolidation could represent atelectasis, versus pneumonia in the appropriate setting.
[2021-12-06 23:03] LABS: Coronavirus 19, PCR Not Detected (NotDetected); Influenza A, PCR Not Detected (NotDetected); Influenza B, PCR Not Detected (NotDetected); Microscopic, Urine URINE MICROSCOPIC (MICROSCOPIC)
[2021-12-06 23:05] LABS: Basophils # 0.1 K/mm3 (0-0.2); Basophils % 1.6 % (0.1-2.0); Eosinophils # 0.3 K/mm3 (0.0-0.4); Eosinophils % 3.3 % (0.1-12.0); Hematocrit 39.6 % (42.0-52.0); Hemoglobin 12.7 g/dL (14.1-18.0); Lymphocytes # 1.6 K/mm3 (0.7-4.5); Lymphocytes % 19.5 % (10-50); Mean Corpuscular HGB Conc 32.2 g/dL (31.8-35.4); Mean Corpuscular Hemoglobin 30.3 pg (27.0-31.2); Mean Platelet Volume 9.8 fl (7.4-10.4); Monocytes # 0.3 K/mm3 (0.1-1.0); Monocytes % 3.3 % (1.7-9.3); Neutrophils # 6.1 K/mm3 (1.8-7.8); Neutrophils % 72.4 % (37.0-80.0); Platelet Count 215 K/mm3 (142-424); Red Blood Count 4.21 M/mm3 (4.60-6.20); Red Cell Distribution Width 13.7 % (11.5-17.5); White Blood Count 8.4 K/mm3 (4.8-10.8)
[2021-12-06 23:11] LABS: Appearance,Urine CLEAR (Clear); Bilirubin,Urine Negative (Negative); Blood, Urine 2+ (Negative); Color,Urine YELLOW (Yellow); Glucose,Urine (UA) 3+ (Negative); Ketones,Urine TRACE (Negative); Leukocyte Esterase,Urine Negative (Negative); Nitrate,Urine Negative (Negative); PH,Urine 7.5 (5.0-8.5); Protein,Urine 3+ (Negative); Specific Gravity, Urine 1.015 (1.005-1.030); Urobilinogen,Urine 0.2 EU/dl (0.2)
[2021-12-06 23:14] LABS: Alanine Aminotransferase 23 U/L (12-78); Albumin Level 4.1 g/dl (3.5-5.0); Albumin/Globulin Ratio 1.5 (1.1-1.8); Alkaline Phosphatase 234 U/L (38-126); Anion Gap 20.9 mEq/L (5-15); Aspartate Amino Transferase 27 U/L (17-59); Bilirubin,Total 0.7 mg/dl (0.2-1.3); Blood Urea Nitrogen 60 mg/dl (9-20); Calcium 9.4 mg/dl (8.4-10.2); Carbon Dioxide 19 mmol/L (22.0-30.0); Chloride 93 mmol/L (98-107); Creatinine Clearance Estimated 12 mL/min (50-200); Estimated Glomerular Filt Rate 7 ml/min (>60); GFR (African American) 9 ML/MIN (>60); Globulin 2.7 g/dL (1.3-3.2); Potassium 5.9 mmoL/L (3.5-5.1); Sodium 127 mmol/L (136-145); Total Protein,Serum 6.8 g/dl (6.3-8.2)
[2021-12-06 23:15] LABS: Acetone, Serum (Rapid) Small (None Detect)
[2021-12-06 23:18] LABS: C-Reactive Protein 13.1 mg/L (0-4)
[2021-12-06 23:21] LABS: Benzodiazepines Screen,Urine Negative ng/ml (<200)
[2021-12-06 23:22] LABS: Amphetamine/Metha Screen,Urine Negative ng/ml (<1000)
[2021-12-06 23:23] LABS: Barbiturates Screen,Urine Negative ng/ml (<200); Cannabinoid Screen,Urine Negative ng/ml (<50)
[2021-12-06 23:24] LABS: Acetaminophen < 10 ug/ml (10-30); Cocaine Screen,Urine Negative ng/ml (<300); Salicylate < 1.0 mg/dL (2.0-20.0)
[2021-12-06 23:25] LABS: Methadone Screen,Urine Negative ng/ml (<300); Opiate Screen,Urine Negative ng/ml (<300)
--- NOTE | 2021-12-06 23:25 | PC.NURSE ---
Dr. Katz notified of critical glucose, creatinine, and gfr.
[2021-12-06 23:26] LABS: Glucose 768 mg/dl (74-100); Phencyclidine Screen,Urine Negative ng/ml (<25)
[2021-12-06 23:27] LABS: Glucose,Random 770 mg/dL (74-100)
[2021-12-06 23:30] LABS: Bacteria,Urine Trace /lpf; WBC,Urine Occasional #/hpf (0-3)
[2021-12-06 23:45] VITALS: BP 222/122; PULSE 86; RESP 16; O2SAT 96
[2021-12-06 23:51] LABS: Erythrocyte Sedimentation Rate 68 mm/hr (0-15)
[2021-12-07] VITALS (9 sets, daily range): BP systolic 162–206; BP diastolic 80–136; PULSE 78–91; RESP 14–20; TEMP 36.8; O2SAT 94–98
--- NOTE | 2021-12-07 00:36 | HMH.EDNEU ---
ED Disposition Clinical Impression: Hypertensive urgency, ESRD (end stage renal disease) Diabetes mellitus, insulin dependent (IDDM), uncontrolled Qualifiers: Glycemic state: with hyperglycemia Qualified Code(s): E10.65 - Type 1 diabetes mellitus with hyperglycemia Disposition: Home, Self-Care Condition on Discharge: Fair Instructions: DI for Vomiting -- Adult Additional Instructions: go to dialysis and call pcp today Referrals: Sid Parr MD [Primary Care Provider] - - Critical Care Critical Care Time: No Attestation: On 12/06/21, the high probability of a clinically significant, sudden or life threatening deterioration of the following system(s) required my full and direct attention, intervention and personal management. The time I documented below is in addition to time spent performing reported procedures but includes the following listed in this critical care notation. Medical Decision Making - Medical Records Medical records reviewed: Yes: I reviewed the patient's medical records. - Michael Inquiry Pt receiving controlled substance: No Vital Signs: 12/06/21 22:33 12/06/21 23:45 12/07/21 00:30 Temperature 98.1 F Temperature Source Oral Pulse Rate 86 83 Pulse Rate [Right] 86 Respiratory Rate 18 16 16 Blood Pressure 222/122 H 190/99 H Blood Pressure [Right Arm] 208/130 H Blood Pressure Mean 129 Blood Pressure Mean [Right Arm] 156 Blood Pressure Source [Right Arm] Manual Cuff/ Auscultation Blood Pressure Position Supine 02 Sat by Pulse Oximetry 98 96 96 12/07/21 00:42 12/07/21 01:00 12/07/21 01:36 Temperature Temperature Source Pulse Rate 84 83 82 Pulse Rate [Right] Respiratory Rate Blood Pressure 182/106 H 205/118 H 203/97 H Blood Pressure [Right Arm] Blood Pressure Mean Blood Pressure Mean [Right Arm] Blood Pressure Source [Right Arm] Blood Pressure Position 02 Sat by Pulse Oximetry 94 L 96 98 12/07/21 02:01 12/07/21 03:01 Temperature Temperature Source Pulse Rate 81 82 Pulse Rate [Right] Respiratory Rate Blood Pressure 206/110 H 188/114 H Blood Pressure [Right Arm] Blood Pressure Mean 132 137 Blood Pressure Mean [Right Arm] Blood Pressure Source [Right Arm] Blood Pressure Position 02 Sat by Pulse Oximetry 96 96 - Lab Data Lab results reviewed: Yes: I reviewed the patient's lab results. Lab Results 12/06/21 22:45: Random Glucose 770 H*, C-Reactive Protein 13.1 H 12/06/21 22:45: Urine Color Yellow, Urine Appearance Clear, Urine pH 7.5, Ur Specific [place] 1.015, Urine Protein 3+, Urine Glucose (UA) 3+, Urine Ketones Trace, Urine Blood 2+, Urine Nitrate Negative, Urine Bilirubin Negative, Urine Urobilinogen 0.2, Ur Leukocyte Esterase Negative, Urine RBC 3-5, Urine WBC Occasional, Ur Squamous Epith Cells 3-5, Urine Bacteria Trace 12/06/21 22:45: WBC 8.4, RBC 4.21 L, Hgb 12.7 L, Hct 39.6 L, MCV 94.0, MCH 30.3, MCHC 32.2, RDW 13.7, Plt Count 215, MPV 9.8, Neut % (Auto) 72.4, Lymph % (Auto) 19.5, Lamb % (Auto) 3.3, Eos % (Auto) 3.3, Baso % (Auto) 1.6, Neut # (Auto) 6.1, Lymph # (Auto) 1.6, Lamb # (Auto) 0.3, Eos # (Auto) 0.3, Baso # (Auto) 0.1, ESR 68 H 12/06/21 22:45: Sodium 127 L, Potassium 5.9 H, Chloride 93 L, Carbon Dioxide 19 L, Anion Gap 20.9 H, BUN 60 H, Creatinine 8.10 H, Estimated Creat Clear 12, Estimated GFR 7 L*, Est GFR ( Amer) 9 L*, Glucose 768 H*, Calcium 9.4, Total Bilirubin 0.7, AST 27, ALT 23, Alkaline Phosphatase 234 H, Total Protein 6.8, Albumin 4.1, Globulin 2.7, Albumin/Globulin Ratio 1.5, Salicylates < 1.0 L, Acetaminophen < 10 L 12/06/21 22:45: Urine Opiates Screen Negative, Urine Methadone Screen Negative, Ur Barbituates Screen Negative, Ur Phencyclidine Scrn Negative, Ur Amphetamines Screen Negative, U Benzodiazepines Scrn Negative, Urine Cocaine Screen Negative, U Marijuana (THC) Screen Negative 12/06/21 22:45: Acetone Level Small 12/06/21 22:45: SARS-CoV-2 (PCR) Not detected, Influenza A Unty
[2021-12-07 00:37] LABS: POC Glucose,Bedside 504 (70-110)
--- NOTE | 2021-12-07 00:56 | ECG_ITS ---
APPROVED REPORT Exam: Resting ECG HR:80 bpm ECG Measurements Heart Rate 80 AXES DC 155 P 58 QRSd 76 QRS 34 QT 388 T 168 QTc 424 Conclusion SINUS RHYTHM MODERATE T-WAVE ABNORMALITY, CONSIDER LATERAL ISCHEMIA [-0.1+ mV T-WAVE IN I/aVL/V5/V6] ABNORMAL ECG UNCONFIRMED REPORT Electronically signed by : Sid Grossman MD 12/07/2021 16:26:57
[2021-12-07 03:07] LABS: POC Glucose,Bedside 227 (70-110)
[2021-12-07 04:06] LABS: Acetone, Serum (Rapid) None Detected (None Detect)
--- NOTE | 2021-12-07 04:32 | PC.NURSE ---
patient made phone call to mother for ride home
== END 2021-12-07 04:45 | disposition home or self-care (01) ==
PROVIDERS: Emergency Provider Emergency Medicine; PCP Family Medicine
DX: I16.0 Hypertensive urgency (principal); N18.6 End stage renal disease; E10.65 Type 1 diabetes mellitus with hyperglycemia; E78.5 Hyperlipidemia, unspecified; N28.9 Disorder of kidney and ureter, unspecified; Z88.0 Allergy status to penicillin
CPT/HCPCS: 70450; 71045; 80053; 80305; 80329; 81001; 82009; 82947; 82962; 85025; 85651; 86140; 93005; 96365; 96366; 96375; 99284; C9803; J2405; U0003; U0005

== ENCOUNTER 2021-12-08 08:20 | Emergency (ER) | payer OTHER, SELFPAY ==
[2021-12-08] VITALS (11 sets, daily range): BP systolic 190–260; BP diastolic 94–172; PULSE 93–105; RESP 13–25; TEMP 36.9; O2SAT 88–96; BMI 24.3
--- NOTE | 2021-12-08 08:41 | PC.NURSE ---
Notified RT of ABG order
[2021-12-08 08:43] LABS: POC Glucose,Bedside 553 (70-110)
--- NOTE | 2021-12-08 08:49 | HMH.EDGENADL ---
ED Disposition Clinical Impression: Hypertensive encephalopathy, Hyperglycemia without ketosis, ESRD (end stage renal disease) Disposition: Xfer Short-Term Hosp Condition on Discharge: Serious Instructions: DI for Hyperglycemia -- Adult Referrals: Sid Parr MD [Primary Care Provider] - Forms: Transfer Record - ED - Critical Care Critical Care Time: Yes Attestation: On 12/08/21, the high probability of a clinically significant, sudden or life threatening deterioration of the following system(s) required my full and direct attention, intervention and personal management. The time I documented below is in addition to time spent performing reported procedures but includes the following listed in this critical care notation. Total Critical Care Time: 45 Vital system(s) involved:: Circulatory Failure My critical care processes included: Assessment & monitoring of V/S, Initial and Re-exams, Data Review/Interpretation, Coordinating Care, Medication Orders and management, Documentation Medical Decision Making - Medical Records Medical records reviewed: Yes: I reviewed the patient's medical records. 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 Blood sugar greater than 700, but negative work-up for DKA. Noted to have slurred speech, but this reported to be his baseline. Markedly hypertensive. Appears to been treated with clonidine with improvement in blood pressure. Noted to have dialysis scheduled for the next day , assuming this means 12/07/2021. According to primary care provider's office dialysis is believed to be on Monday, , Monday, which would be consistent with this. - Michael Inquiry Pt receiving controlled substance: No Vital Signs: 12/08/21 08:21 12/08/21 08:59 12/08/21 09:03 Temperature 98.4 F Temperature Source Oral Pulse Rate Pulse Rate [Right Radial] 105 H Respiratory Rate 24 25 H Blood Pressure 241/172 H 230/120 H Blood Pressure [Right Arm] 260/147 H Blood Pressure Mean [Right Arm] 184 Blood Pressure Source Manual Cuff/ Auscultation Blood Pressure Source [Right Arm] Automatic Cuff Blood Pressure Position [Right Arm] Sitting 02 Sat by Pulse Oximetry 88 L Oxygen Delivery Method Room Air 12/08/21 09:06 12/08/21 09:43 12/08/21 09:57 Temperature Temperature Source Pulse Rate 94 H Pulse Rate [Right Radial] Respiratory Rate Blood Pressure 230/120 H 228/135 H 234/134 H Blood Pressure [Right Arm] Blood Pressure Mean [Right Arm] Blood Pressure Source Blood Pressure Source [Right Arm] Blood Pressure Position [Right Arm] 02 Sat by Pulse Oximetry 96 Oxygen Delivery Method 12/08/21 10:00 12/08/21 10:16 12/08/21 10:46 Temperature Temperature Source Pulse Rate Pulse Rate [Right Radial] Respiratory Rate 13 18 Blood Pressure 197/113 H 202/110 H 211/99 H Blood Pressure [Right Arm] Blood Pressure Mean [Right Arm] Blood Pressure Source Blood Pressure Source [Right Arm] Blood Pressure Position [Right Arm] 02 Sat by Pulse Oximetry Oxygen Delivery Method 12/08/21 13:25 12/08/21 13:55 Temperature 98.4 F Temperature Source Pulse Rate 93 H Pulse Rate [Right Radial] Respiratory Rate 22 Blood Pressure 190/108 H 191/94 H Blood Pressure [Right Arm] Blood Pressure Mean [Right Arm] Blood Pressure Source Blood Pressure Source [Right Arm] Blood Pressure Position [Right Arm] 02 Sat by Pulse Oximetry Oxygen Delivery Method Nasal Cannula - Lab Data Lab Results 12/08/21 08:22: WBC 6.9, RBC 4.35 L, Hgb 13.1 L, Hct 41.6 L, MCV 95.7 H, MCH 30.0, MCHC 31.4 L, RDW 13.7, Plt Count 232, MPV 9.6, Neut % (Auto) 58.2, Lymph % (Auto) 30.7, Armstrong % (Auto) 5.9, Eos % (Auto) 3.3, Baso % (Auto) 1.9, Neut # (Auto) 4.0, Lymph # (Auto) 2.1, Armstrong # (Auto) 0.4, Eos # (Auto) 0.2, Baso # (Auto) 0.1 12/08/21 08:22: Sodium 130 L, Potassium
[2021-12-08 08:55] LABS: ABG Base Excess 0.4 mmol/L (-2.4-2.3); ABG HCO3 24.7 mmhg (22.0-26.0); ABG Oxygen Saturation 94 % (90-100); ABG PCO2 37.7 mmhg (35.0-45.0); ABG PH 7.43 mmol/L (7.35-7.45); ABG PO2 66.7 mmhg (80-100); ABG TCO2 25.8 mmhg (23-27)
[2021-12-08 08:56] LABS: Chloride 91 mmol/L (98-107); Potassium 4.3 mmoL/L (3.5-5.1); Sodium 130 mmol/L (136-145)
[2021-12-08 08:56] LABS: Allen's Test Acceptable; Oxygen 5L NC %; Source Left Radial
[2021-12-08 08:58] LABS: Blood Urea Nitrogen 36 mg/dl (9-20); Creatinine Clearance Estimated 21 mL/min (50-200); Estimated Glomerular Filt Rate 12 ml/min (>60); GFR (African American) 15 ML/MIN (>60)
[2021-12-08 08:59] LABS: Alanine Aminotransferase 26 U/L (12-78); Albumin Level 4.2 g/dl (3.5-5.0); Albumin/Globulin Ratio 1.4 (1.1-1.8); Alkaline Phosphatase 216 U/L (38-126); Anion Gap 13.3 mEq/L (5-15); Aspartate Amino Transferase 31 U/L (17-59); Bilirubin,Total 0.7 mg/dl (0.2-1.3); Calcium 8.9 mg/dl (8.4-10.2); Carbon Dioxide 30 mmol/L (22.0-30.0); Total Protein,Serum 7.2 g/dl (6.3-8.2)
--- NOTE | 2021-12-08 08:59 | XR_ITS ---
FINAL REPORT CLINICAL HISTORY: blood sugar, BP out of control COMPARISON: December 06, 2021 FINDINGS: A right-sided deep line remains in place. The heart size is normal. The mediastinum is normal. There is worsening pulmonary vascular congestion. Bibasilar atelectasis or pneumonia is worse. There are small bilateral pleural effusions. There is no pneumothorax. There is no osseous abnormality. IMPRESSION: Pulmonary vascular congestion with bibasilar atelectasis or pneumonia, worse. Reviewed, Interpreted and Dictated by Camilo Mtz III, MD Transcribed by Jovi Ayala Authenticated by Camilo Mtz III, MD on 12/08/2021 10:25:23 AM [facility]
[2021-12-08 09:00] LABS: Basophils # 0.1 K/mm3 (0-0.2); Basophils % 1.9 % (0.1-2.0); Eosinophils # 0.2 K/mm3 (0.0-0.4); Eosinophils % 3.3 % (0.1-12.0); Hematocrit 41.6 % (42.0-52.0); Hemoglobin 13.1 g/dL (14.1-18.0); Lymphocytes # 2.1 K/mm3 (0.7-4.5); Lymphocytes % 30.7 % (10-50); Mean Corpuscular HGB Conc 31.4 g/dL (31.8-35.4); Mean Corpuscular Volume 95.7 fl (80-94); Mean Platelet Volume 9.6 fl (7.4-10.4); Monocytes # 0.4 K/mm3 (0.1-1.0); Monocytes % 5.9 % (1.7-9.3); Neutrophils % 58.2 % (37.0-80.0); Platelet Count 232 K/mm3 (142-424); Red Blood Count 4.35 M/mm3 (4.60-6.20); Red Cell Distribution Width 13.7 % (11.5-17.5); White Blood Count 6.9 K/mm3 (4.8-10.8)
[2021-12-08 09:02] LABS: Lactic Acid 2.1 mmol/L (0.7-2.1)
[2021-12-08 09:04] LABS: Glucose 612 mg/dl (74-100)
--- NOTE | 2021-12-08 09:04 | PC.NURSE ---
lab called with critical potassium and glucose on pt, notified [place] [facility]
[2021-12-08 09:12] LABS: Phosphorous 5.7 mg/dl (2.5-4.5)
[2021-12-08 09:13] LABS: Magnesium 1.9 mg/dl (1.6-2.3)
--- NOTE | 2021-12-08 09:14 | CT_ITS ---
FINAL REPORT CLINICAL HISTORY: [facility] COMPARISON: December 06, 2021 FINDINGS: Axial images of the head were obtained without contrast. Coronal reformatted images were also obtained.This study was performed with techniques to keep radiation doses as low as reasonably achievable (ALARA). Individualized dose reduction techniques using automated exposure control or adjustment of mA and/or kV according to the patient's size were employed. There is no evidence of intracranial hemorrhage or mass. The ventricular size is within normal limits. There is no evidence of shift of the midline structures. No abnormal extra axial fluid collection is identified. No skull abnormality is seen on the bone window images. IMPRESSION: No acute intracranial abnormality. Should symptoms persist an MRI with diffusion-weighted imaging would be helpful. Reviewed, Interpreted and Dictated by Camilo Mtz III, MD Transcribed by Jovi Ayala Authenticated by Camilo Mtz III, MD on 12/08/2021 09:55:14 AM [facility]
--- NOTE | 2021-12-08 09:24 | ECG_ITS ---
APPROVED REPORT Exam: Resting ECG HR:87 bpm ECG Measurements Heart Rate 87 AXES AL 147 P 55 QRSd 81 QRS 6 QT 364 T 145 QTc [address] DEVIATION AND MODERATE T-WAVE ABNORMALITY, CONSIDER LATERAL ISCHEMIA [-0.1+ mV T-WAVE IN I/aVL/V5/V6] ABNORMAL ECG UNCONFIRMED REPORT Electronically signed by : Sid Grossman MD 12/09/2021 19:32:23
[2021-12-08 09:25] LABS: Troponin I 0.05 ng/ml (0.00-0.034)
[2021-12-08 09:37] LABS: Acetone, Serum (Rapid) None Detected (None Detect)
--- NOTE | 2021-12-08 10:21 | PC.NURSE ---
DeeRN spoke with pt significant other and she advised that pt received dialysis at [facility] in [place] yesterday AM at 0930.
[2021-12-08 11:28] LABS: Coronavirus 19, PCR Not Detected (NotDetected); Influenza A, PCR Not Detected (NotDetected); Influenza B, PCR Not Detected (NotDetected)
--- NOTE | 2021-12-08 11:33 | PC.NURSE ---
MDs called for transfer of patient. Dr Stewart talking to Dr Stallings for transfer.
--- NOTE | 2021-12-08 12:09 | PC.NURSE ---
Called [facility] MDs back to notify of Covid Neg, and pt is to transfer ER to [facility]
[2021-12-08 12:25] LABS: Troponin I 0.05 ng/ml (0.00-0.034)
[2021-12-08 12:48] LABS: Reflex Lactic Add Lactic Reflex
[2021-12-08 13:29] LABS: Lactic Acid Follow Up (RFLX 1) 1.6 mmol/L (0.7-2.1)
--- NOTE | 2021-12-08 15:28 | PC.NURSE ---
1323- LEFT [facility] IN ROUTE TO [facility]. PT IS STABLE, CONNECTED TO ALL MONITORS. ON 5L O2 VIA NASAL CANNULA. LABETALOL AT 30/HR. PT GCS OF 10-11. LEFT WRIST IV, NO S/S OF INFILTRATION NOTED. BP 189/96, HR 91, O2 AT 96%, TEMP 100.8 AXILLARY 1337- PT SLEEPING. HR 193/91, HR 88, SAT 95% 5LITERS O2 VIA NASAL CANNULA. IV CONTINUES TO INFUSE. LABETALOL 30MG/HR INFUSING W/O DIFFICULTY 1359- ARRIVAL AT [facility], REPORT TO MARKUS MORROW RN [facility]
== END 2021-12-08 13:30 | disposition short-term general hospital (02) ==
PROVIDERS: Emergency Provider Emergency Medicine; PCP Family Medicine
DX: I67.4 Hypertensive encephalopathy (principal); E11.65 Type 2 diabetes mellitus with hyperglycemia; I10 Essential (primary) hypertension; Z87.891 Personal history of nicotine dependence; Z20.822 Contact with and (suspected) exposure to COVID-19
CPT/HCPCS: 70450; 71045; 80053; 82009; 82803; 82962; 83605; 83735; 84100; 84484; 85025; 87040; 93005; 96365; 96375; 96376; 99284; C9803; J2405; U0003; U0005

== ENCOUNTER 2021-12-19 17:46 | Observation (INO) | payer OTHER, SELFPAY ==
[2021-12-19 17:49] VITALS: BP 194/108; PULSE 105; RESP 24; TEMP 36.9; O2SAT 98; BMI 24.3
[2021-12-19 18:17] LABS: Basophils # 0.1 K/mm3 (0-0.2); Basophils % 1.4 % (0.1-2.0); Eosinophils % 0.1 % (0.1-12.0); Hematocrit 36.7 % (42.0-52.0); Hemoglobin 11.5 g/dL (14.1-18.0); Lymphocytes # 1.3 K/mm3 (0.7-4.5); Lymphocytes % 28.4 % (10-50); Mean Corpuscular HGB Conc 31.3 g/dL (31.8-35.4); Mean Corpuscular Hemoglobin 30.3 pg (27.0-31.2); Mean Corpuscular Volume 96.8 fl (80-94); Mean Platelet Volume 10.7 fl (7.4-10.4); Monocytes # 0.3 K/mm3 (0.1-1.0); Monocytes % 7.3 % (1.7-9.3); Neutrophils # 2.9 K/mm3 (1.8-7.8); Neutrophils % 62.8 % (37.0-80.0); Platelet Count 156 K/mm3 (142-424); White Blood Count 4.6 K/mm3 (4.8-10.8)
[2021-12-19 18:25] LABS: Alanine Aminotransferase 39 U/L (12-78); Albumin Level 3.5 g/dl (3.5-5.0); Albumin/Globulin Ratio 1.6 (1.1-1.8); Alkaline Phosphatase 216 U/L (38-126); Anion Gap 18.4 mEq/L (5-15); Aspartate Amino Transferase 52 U/L (17-59); Bilirubin,Total 0.4 mg/dl (0.2-1.3); Blood Urea Nitrogen 41 mg/dl (9-20); Carbon Dioxide 22 mmol/L (22.0-30.0); Chloride 89 mmol/L (98-107); Creatinine Clearance Estimated 21 mL/min (50-200); Estimated Glomerular Filt Rate 13 ml/min (>60); Globulin 2.2 g/dL (1.3-3.2); Magnesium 1.6 mg/dl (1.6-2.3); Potassium 4.4 mmoL/L (3.5-5.1); Sodium 125 mmol/L (136-145); Total Protein,Serum 5.7 g/dl (6.3-8.2)
[2021-12-19 18:27] LABS: Acetone, Serum (Rapid) None Detected (None Detect)
--- NOTE | 2021-12-19 18:27 | CT_ITS ---
PROCEDURE INFORMATION: Exam: CT Head Without Contrast Exam date and time: 12/19/2021 6:27 PM Age: 41 years old Clinical indication: Condition or disease; Other: Seizure ? ; patient HX: Seizure? TECHNIQUE: Imaging protocol: Computed tomography of the head without contrast. Radiation optimization: All CT scans at this facility use at least one of these dose optimization techniques: automated exposure control; mA and/or kV adjustment per patient size (includes targeted exams where dose is matched to clinical indication); or iterative reconstruction. COMPARISON: CT HEAD/BRAIN WO CON 12/08/2021 9:32 AM FINDINGS: Brain: Mild chronic brain volume loss and chronic small vessel ischemic changes. Cerebral ventricles: No ventriculomegaly. Paranasal sinuses: Visualized sinuses are unremarkable. No fluid levels. Mastoid air cells: Visualized mastoid air cells are well aerated. Bones/joints: Unremarkable. No acute fracture. Soft tissues: Unremarkable. IMPRESSION: No acute intracranial findings.
--- NOTE | 2021-12-19 18:30 | ECG_ITS ---
APPROVED REPORT Exam: Resting ECG HR:100 bpm ECG Measurements Heart Rate 100 AXES SC 136 P 56 QRSd 85 QRS -6 QT 373 T 80 QTc 430 Conclusion SINUS TACHYCARDIA WITH OCCASIONAL SUPRAVENTRICULAR PREMATURE COMPLEXES NONSPECIFIC T-WAVE ABNORMALITY ABNORMAL RHYTHM ECG UNCONFIRMED REPORT Electronically signed by : Sid Grossman MD 12/22/2021 21:09:56
--- NOTE | 2021-12-19 18:30 | PC.NURSE ---
pt with seizure activity tonic clonic movements joselin. lasting approx 2 mins. md at bedside.
--- NOTE | 2021-12-19 18:34 | PC.NURSE ---
radiology bedside to take patient to CT scan
[2021-12-19 18:40] LABS: Glucose 997 mg/dl (74-100)
[2021-12-19 18:41] LABS: GFR (African American) 15 ML/MIN (>60)
--- NOTE | 2021-12-19 18:53 | PC.NURSE ---
Called transfer center at [facility] and checked for ICU bed. They stated that they don't have any beds. Dr. Recinos made aware and stated to get in touch with PCP here and try to admit here.
--- NOTE | 2021-12-19 18:55 | PC.NURSE ---
Called gray mixing operator to get Dr. Parr paged for Dr. Recinos. Awaiting call back
--- NOTE | 2021-12-19 18:57 | PC.NURSE ---
Dr. Parr called back and is speaking with Dr. Recinos at this time.
--- NOTE | 2021-12-19 19:06 | HMH.EDGENADL ---
ED Disposition Clinical Impression: Acute encephalopathy, DKA (diabetic ketoacidosis), Seizure Disposition: Admitted As Inpatient Condition on Discharge: Fair - Critical Care Critical Care Time: Yes Attestation: On 12/19/21, the high probability of a clinically significant, sudden or life threatening deterioration of the following system(s) required my full and direct attention, intervention and personal management. The time I documented below is in addition to time spent performing reported procedures but includes the following listed in this critical care notation. Total Critical Care Time: 30 Vital system(s) involved:: Central Nervous System, Metabolic Failure My critical care processes included: Assessment & monitoring of V/S, Initial and Re-exams, Data Review/Interpretation, Coordinating Care, Medication Orders and management Medical Decision Making - Medical Records Medical records reviewed: Yes: I reviewed the patient's medical records. - Michael Inquiry Pt receiving controlled substance: No Vital Signs: 12/19/21 17:49 Temperature 98.5 F Temperature Source Oral Pulse Rate [Radial] 105 H Respiratory Rate 24 Blood Pressure [Right Arm] 194/108 H Blood Pressure Mean [Right Arm] 136 Blood Pressure Position [Right Arm] Sitting 02 Sat by Pulse Oximetry 98 Oxygen Delivery Method Room Air - Lab Data Lab results reviewed: Yes: I reviewed the patient's lab results. Lab Results 12/19/21 18:03: WBC 4.6 L, RBC 3.80 L, Hgb 11.5 L, Hct 36.7 L, MCV 96.8 H, MCH 30.3, MCHC 31.3 L, RDW 13.0, Plt Count 156, MPV 10.7 H, Neut % (Auto) 62.8, Lymph % (Auto) 28.4, [place] % (Auto) 7.3, Eos % (Auto) 0.1, Baso % (Auto) 1.4, Neut # (Auto) 2.9, Lymph # (Auto) 1.3, [place] # (Auto) 0.3, Eos # (Auto) 0.0, Baso # (Auto) 0.1 12/19/21 18:03: Sodium 125 L, Potassium 4.4, Chloride 89 L, Carbon Dioxide 22, Anion Gap 18.4 H, BUN 41 H, Creatinine 5.10 H, Estimated Creat Clear 21, Estimated GFR 13 L*, Est GFR ( Amer) 15 L*, Glucose 997 H*, Calcium 8.0 L, Magnesium 1.6, Total Bilirubin 0.4, AST 52, ALT 39, Alkaline Phosphatase 216 H, Total Protein 5.7 L, Albumin 3.5, Globulin 2.2, Albumin/Globulin Ratio 1.6 12/19/21 18:03: Acetone Level None detected 12/19/21 18:03: Hemoglobin A1c 11.6 H 12/19/21 18:11: VBG pH 7.30 L, VBG pCO2 41.8, VBG pO2 132.9 H, VBG HCO3 20.2 L, VBG Total CO2 21.5 L, VBG O2 Saturation 98.6 H, VBG Base Excess -6.1 L 12/19/21 19:02: Lactate 3.0 H Result diagrams: 12/19/21 18:03 12/19/21 18:03 Orders (Tests/Meds): ED MEDICATIONS Generic Name Dose Route Start Last Admin Trade Name Freq PRN Reason Stop Dose Admin Dextrose 50 ml 12/19/21 18:44 Dextrose 50% 50ml Syringe (Crash Cart) IVP 01/18/22 18:43 NEEDED PRN Per DKA Protocol Lactated Ringer's 1,000 mls @ 999 mls/hr 12/19/21 18:15 12/19/21 18:36 Lactated Ringer's 1000 Ml Bag IV 12/19/21 19:15 999 mls/hr .Q1H1M CASTILLO Administration Insulin Human Regular 100 unit 276 mls @ 5.52 mls/hr 12/19/21 18:45 12/19/21 19:29 / Sodium Chloride/ Potassium IV 01/18/22 18:44 5.52 mls/hr Chloride/Sodium Chloride .Q25H CASTILLO Administration Protocol 2 UNITS/HR Potassium Chloride/Sodium Chloride 1,000 mls @ 150 mls/hr 12/19/21 18:45 12/19/21 19:29 Kcl 20 Meq In 0.45% Nacl 1000mls IV 01/18/22 18:44 150 mls/hr .Q6H40M CASTILLO Administration Sodium Chloride 10 ml 12/19/21 18:28 Sodium Chloride 0.9% 10ml Vial IV 01/18/22 18:27 NEEDED PRN to Dilute Lorazepam inj Discontinued Medications Generic Name Dose Route Start Last Admin Trade Name Freq PRN Reason Stop Dose Admin Levetiracetam 2,000 mg/ Sodium 120 mls @ 240 mls/hr 12/19/21 18:27 12/19/21 18:34 Chloride IV 12/19/21 18:28 Not Given ONCE ONE Levetiracetam 2,000 mg/ Sodium 120 mls @ 240 mls/hr 12/19/21 18:28 12/19/21 18:34 Chloride IV 12/19/21 18:29 240 mls/hr ONCE ONE Administration Sodium Chloride 1,000 mls @ 150 mls/hr 12/19/21 18:45
[2021-12-19 19:12] LABS: Hemoglobin A1C 11.6 % (4.0-6.0)
[2021-12-19 19:29] VITALS: BMI 24.3
--- NOTE | 2021-12-19 19:40 | PC.NURSE ---
Spoke with Daija at [facility]. She advised the wait list is extensive, but he would be placed on the list.
[2021-12-19 19:45] LABS: VBG Base Excess -6.1 mmol/L (-2.4-2.3); VBG HCO3 20.2 mmol/L (23-30); VBG Oxygen Saturation 98.6 % (50-70); VBG PCO2 41.8 mmol/L (35-51); VBG PO2 132.9 mmol/L (28-40); VBG Total CO2 21.5 mmol/L (23-27)
--- NOTE | 2021-12-19 19:52 | PC.NURSE ---
Dr. Recinos spoke with Dr Parker at . They advised it would be at least 48 hours but he would be placed on the wait list.
[2021-12-19 20:00] VITALS: O2SAT 97
[2021-12-19 20:19] LABS: Microscopic, Urine URINE MICROSCOPIC (MICROSCOPIC)
[2021-12-19 20:20] LABS: Appearance,Urine CLEAR (Clear); Bilirubin,Urine Negative (Negative); Blood, Urine 1+ (Negative); Color,Urine YELLOW (Yellow); Glucose,Urine (UA) 3+ (Negative); Ketones,Urine 1+ (Negative); Leukocyte Esterase,Urine Negative (Negative); Nitrate,Urine Negative (Negative); Protein,Urine 3+ (Negative); Specific Gravity, Urine 1.015 (1.005-1.030); Urobilinogen,Urine 0.2 EU/dl (0.2)
[2021-12-19 20:31] LABS: Bacteria,Urine Trace /lpf; RBC,Urine Occasional #/hpf (0-3)
[2021-12-19 20:32] LABS: Amphetamine/Metha Screen,Urine Negative ng/ml (<1000); Barbiturates Screen,Urine Negative ng/ml (<200)
[2021-12-19 20:33] LABS: Benzodiazepines Screen,Urine Negative ng/ml (<200); Cannabinoid Screen,Urine Negative ng/ml (<50)
[2021-12-19 20:34] LABS: Cocaine Screen,Urine Negative ng/ml (<300)
--- NOTE | 2021-12-19 20:34 | PC.NURSE ---
report called to DAVID Irwin at this time
[2021-12-19 20:35] LABS: Methadone Screen,Urine Negative ng/ml (<300); Opiate Screen,Urine Negative ng/ml (<300)
[2021-12-19 20:36] LABS: Phencyclidine Screen,Urine Negative ng/ml (<25)
[2021-12-19 20:54] LABS: Influenza A, PCR Not Detected (NotDetected); Influenza B, PCR Not Detected (NotDetected)
--- NOTE | 2021-12-19 21:35 | PC.NURSE ---
Pt blood glucose read HIGH. Insulin increased to 4 units/hour per KAIA Gutierrez RN.
[2021-12-19 21:36] LABS: Coronavirus 19, PCR Detected (NotDetected)
[2021-12-19 21:58] LABS: Reflex Lactic Add Lactic Reflex
[2021-12-19 22:16] VITALS: BP 151/84; PULSE 82; RESP 18; TEMP 36.8; O2SAT 99
--- NOTE | 2021-12-19 22:20 | PC.NURSE ---
PT ARRIVED TO FLOOR VIA STRETCHER FROM ED W/STAFF @ [id number]
[2021-12-19 22:37] LABS: Anion Gap 17.5 mEq/L (5-15); Blood Urea Nitrogen 42 mg/dl (9-20); Carbon Dioxide 23 mmol/L (22.0-30.0); Chloride 90 mmol/L (98-107); Creatinine Clearance Estimated 20 mL/min (50-200); Estimated Glomerular Filt Rate 12 ml/min (>60); Lactic Acid Follow Up (RFLX 1) 0.9 mmol/L (0.7-2.1); Potassium 4.5 mmoL/L (3.5-5.1); Sodium 126 mmol/L (136-145)
[2021-12-19 22:40] VITALS: BP 162/86; PULSE 108; RESP 20; TEMP 36.6; O2SAT 98
[2021-12-19 22:50] VITALS: PULSE 110
[2021-12-19 22:51] LABS: GFR (African American) 14 ML/MIN (>60); Glucose 1024 mg/dl (74-100)
--- NOTE | 2021-12-19 22:55 | PC.NURSE ---
pt's lab glucose was 1024, increased insulin drip from 4units/hr to 8units/hr; notified MD Parr that pt's blood sugar was 1024, creatinine is critical at 5.5, insulin drip is at 8units/hr, and fluids are 1/2NS at 25mL/hr per verbal telephone order from when pt was admitted at 2240
[2021-12-20] VITALS (10 sets, daily range): BP systolic 138–164; BP diastolic 66–103; PULSE 84–100; RESP 16–22; TEMP 36.5; O2SAT 92–98
--- NOTE | 2021-12-20 00:50 | PC.NURSE ---
glucometer reading for fsbs read high (so fsbs is greater than 600 bc that's as high as our glucometers go), stat lab being collected for blood glucose reading per protocol, increased insulin drip to 16units/hr per protocol
[2021-12-20 01:34] LABS: Glucose,Random 791 mg/dL (74-100)
--- NOTE | 2021-12-20 01:34 | PC.NURSE ---
lab called with blood glucose of 791, insulin drip already increased to 16units/hr at 0050 will leave at 16 and recheck another fsbs per protocol
--- NOTE | 2021-12-20 02:40 | PC.NURSE ---
0240-pt's fsbs 546 on glucometer; pt's fsbs still high, but coming down steadily with insulin drip in place at 16 units/hr, lab coming to draw 0245 bmp for blood glucose per protocol
[2021-12-20 03:26] LABS: Anion Gap 12.4 mEq/L (5-15); Blood Urea Nitrogen 46 mg/dl (9-20); Carbon Dioxide 26 mmol/L (22.0-30.0); Chloride 96 mmol/L (98-107); Creatinine Clearance Estimated 20 mL/min (50-200); Estimated Glomerular Filt Rate 12 ml/min (>60); Potassium 3.4 mmoL/L (3.5-5.1); Sodium 131 mmol/L (136-145)
[2021-12-20 03:28] LABS: GFR (African American) 14 ML/MIN (>60); Glucose 566 mg/dl (74-100)
[2021-12-20 04:10] LABS: POC Glucose,Bedside 421 (70-110)
[2021-12-20 04:10] LABS: POC Glucose,Bedside 546 (70-110)
--- NOTE | 2021-12-20 04:16 | PC.NURSE ---
0400-pt's fsbs 421, fsbs coming down accordingly, adjusted insulin drip to 12 units/hr
--- NOTE | 2021-12-20 05:14 | PC.NURSE ---
pt's fsbs 313, decreased insulin drip to 8units/hr and will recheck another fsbs at 0600
[2021-12-20 05:56] LABS: POC Glucose,Bedside 313 (70-110)
--- NOTE | 2021-12-20 06:11 | PC.NURSE ---
fsbs 184, decreased insulin drip to 4units/hr
--- NOTE | 2021-12-20 06:59 | PC.NURSE ---
pt's fsbs 160, decreased insulin drip to 2units/hr
[2021-12-20 07:00] LABS: POC Glucose,Bedside 184 (70-110)
[2021-12-20 07:00] LABS: POC Glucose,Bedside 160 (70-110)
--- NOTE | 2021-12-20 07:20 | P.CONPHA_ITS ---
[facility] Pharmacy VTE Monitoring - Patient Demographics Admission date: 12/19/21 Report Date: 12/20/21 Time: 07:20 Allergies/Adverse Reactions: Patient Allergies Penicillins [PENICILLINS] Allergy (Severe, Verified 08/20/21 17:53) I-HIVES Height: 1.78 m Weight: 77 kg Patient Problems: Current Active Problems DKA (diabetic ketoacidoses) (Acute) Seizure (Acute) Acute encephalopathy (Acute) - VTE Risk Labs: VTE Related Lab Results Hgb 11.5 g/dL (14.1-18.0) L 12/19/21 18:03 Hct 36.7 % (42.0-52.0) L 12/19/21 18:03 Plt Count 156 K/mm3 (142-424) 12/19/21 18:03 BUN 46 mg/dl (9-20) H 12/20/21 02:50 Creatinine 5.50 mg/dl (0.66-1.25) H 12/20/21 02:50 Estimated Creat Clear 20 mL/min (50-200) 12/20/21 02:50 - Prophylaxis VTE Prophylaxis Ordered?: Yes Types of VTE Prophylaxis: TEDS Knee High Location of Applied Device: Bilateral Lower Extremeties
[2021-12-20 07:26] LABS: Chloride 97 mmol/L (98-107); Sodium 131 mmol/L (136-145)
[2021-12-20 07:27] LABS: Potassium 3.3 mmoL/L (3.5-5.1)
[2021-12-20 07:29] LABS: Blood Urea Nitrogen 46 mg/dl (9-20); Creatinine Clearance Estimated 19 mL/min (50-200); Estimated Glomerular Filt Rate 11 ml/min (>60); GFR (African American) 14 ML/MIN (>60)
--- NOTE | 2021-12-20 07:29 | HMH.HPDC ---
General - General Admission date:: 12/19/21 Discharge date: 12/20/21 *Admission Date: 12/19/21 *Chief complaint: Confusion *History of present illness: 41-year-old male type I diabetic with end-stage renal disease , admissions for DKA, and recent hospitalization at [facility] for pneumonia presented from home after his described convulsions and confusion. On presentation in the emergency department patient's blood sugar was over 900. Additional work-up was negative for any significant acidosis. Patient was admitted for an insulin drip. Overnight patient's insulin drip has continued and blood sugars decreased from their peak of 1000 down to 160 this morning. Patient is awake and oriented to person. He has to be reminded of his location and is unsure of the date and time. He cannot explain any of the events of yesterday. He does tell me that during his last hospitalization at [facility] the manager intensive care decreased his insulin dosing to 2 units of NovoLog with meals and 8 units of Lantus daily. Patient uses a continuous glucose monitor at home but cannot report any of the readings from that device. He is not wearing his CGM currently. Patient also reports a fever yesterday and work-up in the emergency department detected COVID 19 infection on preadmission screen. Patient denies any cough, runny nose, myalgias HMH History I have reviewed the patient's past medical history: Yes Medical History: Reports:: Diabetes Mellitus Type 1, Hyperlipidemia, Hypertension, Renal Disease, Renal Insufficiency, Seizures, Urinary Tract Infection Denies:: Cancer, Diabetes Mellitus Type 2, MRSA *Have you ever received a pneumonia vaccine?: Yes (12/06/18) *Have you received a flu vaccine this season?: No (last 12/25/19) Other Medical History: Reports: Anemia, Liver Disease, Other Laterality Cases: Bilateral: Myringotomy (Ear Tubes), Tonsillectomy Other Surgeries: Yes: No Previous Surgery, Other Amputation: Yes Fractures: Yes - *Social History Smoking Status: Current every day smoker Tobacco Type: cigarettes # Packs/Day (cigarettes): 1 Alcohol Intake: never Alcohol Intake Frequency:: a few times a month Substance Use Type: marijuana, opiates *Occupational Status:: disabled Housing: house Household Members: significant other, children *Travel in the last 8 weeks: None Family Hx:: Coronary Artery Disease, Diabetes, Heart Attack, Hyperlipidemia, Hypertension Review of Systems - Constitutional Reports anorexia, Reports lack of energy - Eyes Reports loss of vision - ENT Denies abnormal hearing - *Cardiovascular Denies chest pain, Denies chest pain at rest - *Respiratory Denies change in phlegm color, Denies chest congestion, Denies cough - *Gastrointestinal Denies abdominal pain - *Genitourinary Denies difficulty urinating - *Musculoskeletal Reports joint pain - Integumentary/Breasts Denies hair loss - *Neurologic Reports confusion, Reports seizure-like activity, Denies abnormal hearing - Psychiatric Denies behavioral changes - Endocrine Denies cold intolerance, Denies excessive sweating - Hematologic/Lymphatic Denies easy bleeding Exam Vital signs and Labs for Last 24 Hours: Temp Pulse Resp BP Pulse Ox 97.7 F 90 18 140/75 92 L 12/20/21 00:00 12/20/21 07:03 12/20/21 07:03 12/20/21 07:03 12/20/21 07:03 Laboratory Results - last 24 hr 12/19/21 18:03: WBC 4.6 L, RBC 3.80 L, Hgb 11.5 L, Hct 36.7 L, MCV 96.8 H, MCH 30.3, MCHC 31.3 L, RDW 13.0, Plt Count 156, MPV 10.7 H, Neut % (Auto) 62.8, Lymph % (Auto) 28.4, [place] % (Auto) 7.3, Eos % (Auto) 0.1, Baso % (Auto) 1.4, Neut # (Auto) 2.9, Lymph # (Auto) 1.3, [place] # (Auto) 0.3, Eos # (Auto) 0.0, Baso # (Auto) 0.1 12/19/21 18:03: Sodium 125 L, Potassium 4.4, Chloride 89 L, Carbon Dioxide 22, Anion Gap 18.4 H, BUN 41 H, Creatinine 5.10 H, Estimated Creat Clear 21, Estimated GFR 13 L*, Est GFR ( Amer) 15 L*, Glucose 997 H*, Calcium 8.0 L
--- NOTE | 2021-12-20 07:29 | HMH.PHAINT ---
MEDICATION RECONCILIATION COMPLETED ON PATIENT USING EXTERNAL FILL HISTORY FROM PHARMACY. -TAY BROWN, CAMILLAD
[2021-12-20 07:30] LABS: Anion Gap 9.3 mEq/L (5-15); Calcium 7.4 mg/dl (8.4-10.2); Carbon Dioxide 28 mmol/L (22.0-30.0); Glucose 168 mg/dl (74-100)
[2021-12-20 08:01] LABS: Acetone, Serum (Rapid) None Detected (None Detect)
--- NOTE | 2021-12-20 08:07 | PC.NURSE ---
Addendum entered by Yola Rosa RN 12/20/21 09:40: after discussion with Dr Parr, order was given for pt to have Lantus 15 units x 1. Original Note: 0805 Dr Parr was notified of critical lab value: Crea 5.6. MD was also notified that pt has received a total of 74 units of insulin in the past 6 hours. per DKA policy anything greater than 22 units in the last 6 hours, you must discuss with MD for a dosage.
[2021-12-20 09:16] LABS: POC Glucose,Bedside 83 (70-110)
--- NOTE | 2021-12-20 09:35 | PC.NURSE ---
spoke with Pt S/O Lita. 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 Discharge information given to s/o. will call when she gets to [facility] and pt will be brought out.
--- NOTE | 2021-12-20 10:49 | PC.NURSE ---
insulin drip turned off at 0815 when 15 unit of lantus was given. fsbs at 1049 was 68. pt given glass of apple juice. will monitor sugar. diet order placed as well.
[2021-12-20 11:53] LABS: POC Glucose,Bedside 68 (70-110)
== END 2021-12-20 11:40 | disposition home or self-care (01) ==
LOC: ER 18:24 → 2ND 20:19
PROVIDERS: Emergency Medicine; Admitting Provider Family Medicine; Emergency Provider Student in an Organized Health Care Education/Training Program; PCP Family Medicine; Visit Provider Family Medicine
DX: E11.10 Type 2 diabetes mellitus with ketoacidosis without coma (principal); E11.22 Type 2 diabetes mellitus with diabetic chronic kidney disease; N18.4 Chronic kidney disease, stage 4 (severe); F17.210 Nicotine dependence, cigarettes, uncomplicated; Z99.2 Dependence on renal dialysis; I13.11 Hypertensive heart and chronic kidney disease without heart failure, with stage 5 chronic kidney disease, or end stage renal disease; R56.9 Unspecified convulsions; G93.40 Encephalopathy, unspecified
CPT/HCPCS: 36415; 70450; 80048; 80053; 80305; 81001; 82009; 82803; 82947; 82962; 83036; 83605; 83735; 85025; 93005; 96365; 96366; 96367; 99284; C9803; G0378; J1953; U0003; U0005

== ENCOUNTER 2021-12-27 19:02 | Emergency (ER) | payer OTHER, SELFPAY ==
--- NOTE | 2021-12-27 20:02 | HMH.EDUTC ---
[facility] [place] Impression: End stage renal disease on dialysis due to type 1 diabetes mellitus UTI (urinary tract infection) Qualifiers: Urinary tract infection type: site unspecified Hematuria presence: with hematuria Qualified Code(s): N39.0 - Urinary tract infection, site not specified Disposition: Home, Self-Care Condition on Discharge: Good Instructions: Urinary Tract Infection, DI for Urinary Tract Infection (UTI) Additional Instructions: Follow up with your primary care physician tomorrow for a recheck. Return to the ER for any worsening symptoms. Take the levaquin 250 mg orally every other day after your hemodialysis treatments. I would feel much better about you if you would allow us to transfer you to the ER for further evaluation at this time. But, since you do not want to do that, then make sure you follow up with your primary care physician tomorrow and return to the ER TADE[facility] for any problems. Prescriptions: levoFLOXacin [Levaquin 250mg tab] 250 mg PO Q48H 6 Days #3 tab Transmission Status: [id number] Referrals: Sid Parr MD [Primary Care Provider] - Time of Disposition: 20:28 Medical Decision Making - Medical Records Medical records reviewed: No: I reviewed the patient's medical records. - Michael Inquiry Pt receiving controlled substance: No Vital Signs: 12/27/21 20:18 12/27/21 20:30 Temperature 97.8 F 97.8 F Temperature Source Oral Oral Pulse Rate 107 H Pulse Rate [Right Brachial] 107 H Respiratory Rate 16 16 Blood Pressure 162/89 H Blood Pressure [Right Arm] 162/89 H Blood Pressure Mean [Right Arm] 113 Blood Pressure Source Automatic Cuff Blood Pressure Source [Right Arm] Automatic Cuff Blood Pressure Position Sitting Blood Pressure Position [Right Arm] Sitting 02 Sat by Pulse Oximetry 96 Oxygen Delivery Method Room Air Room Air Orders (Tests/Meds): ED MEDICATIONS Discontinued Medications Generic Name Dose Route Start Last Admin Trade Name Freq PRN Reason Stop Dose Admin Levofloxacin 500 mg 12/27/21 20:22 12/27/21 20:26 Levofloxacin 500mg Tab PO 12/27/21 20:23 500 mg ONCE ONE Administration Medical Decision Narrative: He refused to allow us to check his blood glucose or to do any blood work. He states that he will f/u or return if necessary. He refused transfer to the ER at this time. [facility] [place] - General Stated complaint: blood in urine Time Seen by Provider: 12/27/21 20:14 - History of Present Illness Provider Complaint: He states that since earlier today he has been having burning and feeling like he needs to urinate almost all the time. He has a history of end stage renal disease for type 1 diabetes. He is on hemodialysis three times per day. He does not normally make very much urine, so he cannot give us a urine sample at this time. He states that he has had a small amount of bloody looking urine before he came here today. He has recently been very sick with covid-19. He was in the hospital here about 10 days ago with it. He was transferred to . While there, he states that he had a mayer catheter inserted. He believes that is has caused him to get these UTI symptoms. He denies any fever or chills. He denies shortness of breath and chest pain. - Related Data Home Medications Medication Instructions Recorded Confirmed Gabapentin [Neurontin 600mg 600 mg PO HS 01/29/21 12/27/21 tablet] Bumetanide [Bumex 1mg tablet] 2 mg PO DAILY 12/07/21 12/27/21 carvediloL [Carvedilol 12.5mg Tab] 12.5 mg PO BID 12/07/21 12/27/21 Insulin Aspart [Novolog] 2 units SQ AC 12/20/21 12/27/21 NIFEdipine [Nifedipine ER] 90 mg PO DAILY 12/20/21 12/27/21 Valsartan [Valsartan 320mg 320 mg PO DAILY 12/20/21 12/27/21 Tablets] calcitrioL [Calcitriol 0.25mcg 0.25 mcg PO DAILY 12/20/21 12/27/21 Capsule] Previous Rx's Medication Instructions Recorded Insulin Glargine,Hum.rec.anlog 15 units S
[2021-12-27 20:18] VITALS: BP 162/89; PULSE 107; RESP 16; TEMP 36.6; O2SAT 96; BMI 25.0
[2021-12-27 20:30] VITALS: BP 162/89; PULSE 107; RESP 16; TEMP 36.6; O2SAT 99
== END 2021-12-27 20:34 | disposition home or self-care (01) ==
PROVIDERS: Emergency Provider Nurse Practitioner Family; PCP Family Medicine
DX: N30.01 Acute cystitis with hematuria (principal); E10.9 Type 1 diabetes mellitus without complications; Z99.2 Dependence on renal dialysis
CPT/HCPCS: 99202; 99212; 99213; G0463

== ENCOUNTER → 2022-02-11 10:18 | Outpatient (CLI) | payer OTHER, SELFPAY | PROVIDERS: PCP Nurse Practitioner Family; Visit Provider Nurse Practitioner Family | DX: Z01.812 Encounter for preprocedural laboratory examination (principal); Z11.52 Encounter for screening for COVID-19 | CPT/HCPCS: C9803; U0003; U0005 ==

== ENCOUNTER 2022-03-11 12:36 | Emergency (ER) | payer OTHER, SELFPAY ==
[2022-03-11 13:01] VITALS: BP 205/106; PULSE 76; RESP 16; O2SAT 98
[2022-03-11 13:03] VITALS: BP 199/108; PULSE 74; RESP 18; TEMP 36.3; O2SAT 98; BMI 25.0
--- NOTE | 2022-03-11 13:04 | ECG_ITS ---
APPROVED REPORT Exam: Resting ECG HR:77 bpm ECG Measurements Heart Rate 77 AXES IA 164 P 11 QRSd 80 QRS 4 QT 410 T 110 QTc 441 Conclusion SINUS RHYTHM NONSPECIFIC T-WAVE ABNORMALITY ABNORMAL ECG UNCONFIRMED REPORT Electronically signed by : Sid Grossman MD 03/12/2022 09:04:47
--- NOTE | 2022-03-11 13:07 | HMH.EDGENADL ---
ED Disposition Clinical Impression: Shortness of breath, ESRD (end stage renal disease) Hypertension Qualifiers: Hypertension type: unspecified Qualified Code(s): I10 - Essential (primary) hypertension Disposition: Home, Self-Care Condition on Discharge: Good Instructions: DI for Shortness of Breath, DI for High Blood Pressure Additional Instructions: Take your carvedilol dose when you arrive home. Continue dialysis as scheduled. Call your primary care doctor today or tomorrow to arrange follow-up for shortness of breath and elevated blood pressure. Return to the emergency department if worsening. Additional instructions for SHORTNESS OF BREATH: See your physician as soon as possible for further evaluation. Return immediately if worsening shortness of breath or if vomiting, chest pain, fever, coughing of blood, or passing out. Referrals: Juliann Wren MD [Primary Care Provider] - - Critical Care Critical Care Time: No Attestation: On 03/11/22, the high probability of a clinically significant, sudden or life threatening deterioration of the following system(s) required my full and direct attention, intervention and personal management. The time I documented below is in addition to time spent performing reported procedures but includes the following listed in this critical care notation. Medical Decision Making - Michael Inquiry Pt receiving controlled substance: No Vital Signs: 03/11/22 13:03 Temperature 97.4 F L Temperature Source Oral Pulse Rate [Radial] 74 Respiratory Rate 18 Blood Pressure [Right Arm] 199/108 H Blood Pressure Mean [Right Arm] 138 Blood Pressure Position [Right Arm] Sitting 02 Sat by Pulse Oximetry 98 Oxygen Delivery Method Room Air - Lab Data Lab Results 03/11/22 13:25: WBC 6.0, RBC 3.39 L, Hgb 10.4 L, Hct 31.6 L, MCV 93.2, MCH 30.8, MCHC 33.0, RDW 15.5, Plt Count 226, MPV 9.3, Neut % (Auto) 61.1, Lymph % (Auto) 29.9, [place] % (Auto) 4.8, Eos % (Auto) 2.1, Baso % (Auto) 2.1 H, Neut # (Auto) 3.7, Lymph # (Auto) 1.8, [place] # (Auto) 0.3, Eos # (Auto) 0.1, Baso # (Auto) 0.1 03/11/22 13:25: Sodium 132 L, Potassium 5.0, Chloride 92 L, Carbon Dioxide 32 H, Anion Gap 13.0, BUN 36 H, Creatinine 4.80 H, Estimated Creat Clear 21, Estimated GFR 14 L*, Est GFR ( Amer) 16 L*, Glucose 282 H, Calcium 9.5, Total Bilirubin 0.8, Direct Bilirubin 0.5 H, Conjugated Bilirubin 0.0, Indirect Bilirubin 0.3, Unconjugated Bilirubin 0.3, AST 50, ALT 23, Alkaline Phosphatase 111, Troponin I 0.05 H, Total Protein 6.8, Albumin 4.0 03/11/22 13:25: NT-Pro-B Natriuret Pep 30870 H Result diagrams: 03/11/22 13:25 03/11/22 13:25 Orders (Tests/Meds): ORDERS Category Date Time Status Troponin I Q3H Lab 03/11/22 16:15 Ordered Troponin I Q3H Lab 03/11/22 19:15 Ordered - Radiology Data #1 Image(s): Chest Image Reviewed: Yes I reviewed the patient's radiology image, Yes I have reviewed radiologist's interpretation Procedure(s): XR chest 2V Accession Number(s): [id number] cc: Sher Watson MD; Juliann Wren MD~ FINAL REPORT TECHNIQUE: Chest PA & Lateral CLINICAL HISTORY: SOB COMPARISON: December 08, 2021 FINDINGS: 2 views of the chest were performed. There is mild cardiomegaly. A right-sided dialysis catheter terminates at the junction of the SVC and right atrium. The mediastinum is within normal limits. The lungs are better inflated. There are small bilateral pleural effusions. There is improved basilar atelectasis.. There is no pneumothorax. The bony thorax appears intact. IMPRESSION: Improved inflation with decrease in atelectasis. Reviewed, Interpreted and Dictated by Sher Watson MD Transcribed by Jovi Ayala Authenticated by Sher Watson MD on 03/11/2022 01:52:17 PM [facility] - ECG Data Tracing #1 EKG interpreted by Wilver Stewart MD: Rhythm: sinus Rate: 77 [place]: normal Ectopy: none Conduction: normal ST Segme
--- NOTE | 2022-03-11 13:10 | XR_ITS ---
FINAL REPORT TECHNIQUE: Chest PA & Lateral CLINICAL HISTORY: SOB COMPARISON: December 08, 2021 FINDINGS: 2 views of the chest were performed. There is mild cardiomegaly. A right-sided dialysis catheter terminates at the junction of the SVC and right atrium. The mediastinum is within normal limits. The lungs are better inflated. There are small bilateral pleural effusions. There is improved basilar atelectasis.. There is no pneumothorax. The bony thorax appears intact. IMPRESSION: Improved inflation with decrease in atelectasis. Reviewed, Interpreted and Dictated by Sher Watson MD Transcribed by Jovi Ayala Authenticated by Sher Watson MD on 03/11/2022 01:52:17 PM [facility]
[2022-03-11 13:48] LABS: Basophils # 0.1 K/mm3 (0-0.2); Basophils % 2.1 % (0.1-2.0); Eosinophils # 0.1 K/mm3 (0.0-0.4); Eosinophils % 2.1 % (0.1-12.0); Hematocrit 31.6 % (42.0-52.0); Hemoglobin 10.4 g/dL (14.1-18.0); Lymphocytes # 1.8 K/mm3 (0.7-4.5); Lymphocytes % 29.9 % (10-50); Mean Corpuscular Hemoglobin 30.8 pg (27.0-31.2); Mean Corpuscular Volume 93.2 fl (80-94); Mean Platelet Volume 9.3 fl (7.4-10.4); Monocytes # 0.3 K/mm3 (0.1-1.0); Monocytes % 4.8 % (1.7-9.3); Neutrophils # 3.7 K/mm3 (1.8-7.8); Neutrophils % 61.1 % (37.0-80.0); Platelet Count 226 K/mm3 (142-424); Red Blood Count 3.39 M/mm3 (4.60-6.20); Red Cell Distribution Width 15.5 % (11.5-17.5)
[2022-03-11 14:00] VITALS: BP 194/100; PULSE 84; RESP 16; O2SAT 98
[2022-03-11 14:05] LABS: Chloride 92 mmol/L (98-107); Sodium 132 mmol/L (136-145)
[2022-03-11 14:08] LABS: Alanine Aminotransferase 23 U/L (12-78); Alkaline Phosphatase 111 U/L (38-126); Aspartate Amino Transferase 50 U/L (17-59); Bilirubin,Direct 0.5 mg/dl (0.0-0.4); Bilirubin,Indirect 0.3 mg/dL (0.0-0.9); Bilirubin,Total 0.8 mg/dl (0.2-1.3); Bilirubin,Unconjugated 0.3 mg/dL (0.0-1.1); Blood Urea Nitrogen 36 mg/dl (9-20); Calcium 9.5 mg/dl (8.4-10.2); Carbon Dioxide 32 mmol/L (22.0-30.0); Creatinine Clearance Estimated 21 mL/min (50-200); Estimated Glomerular Filt Rate 14 ml/min (>60); GFR (African American) 16 ML/MIN (>60); Glucose 282 mg/dl (74-100); Total Protein,Serum 6.8 g/dl (6.3-8.2)
--- NOTE | 2022-03-11 14:10 | PC.NURSE ---
lab called with critical creatinine result notified ER
[2022-03-11 14:18] LABS: NT Pro Brain Natriuretic Pep. 33800 pg/mL (0-125)
[2022-03-11 14:21] LABS: Troponin I 0.05 ng/ml (0.00-0.034)
[2022-03-11 14:30] VITALS: BP 191/99; PULSE 82; RESP 16; O2SAT 99
[2022-03-11 14:40] VITALS: BP 191/99; PULSE 78; RESP 18; TEMP 36.3; O2SAT 99
== END 2022-03-11 14:40 | disposition home or self-care (01) ==
PROVIDERS: Emergency Provider Emergency Medicine; PCP Family Medicine
DX: N39.0 Urinary tract infection, site not specified (principal); R06.02 Shortness of breath; D63.1 Anemia in chronic kidney disease; M79.89 Other specified soft tissue disorders; I12.0 Hypertensive chronic kidney disease with stage 5 chronic kidney disease or end stage renal disease; N18.6 End stage renal disease; E78.5 Hyperlipidemia, unspecified; E11.22 Type 2 diabetes mellitus with diabetic chronic kidney disease; N31.9 Neuromuscular dysfunction of bladder, unspecified; G40.909 Epilepsy, unspecified, not intractable, without status epilepticus; J98.4 Other disorders of lung; Z79.4 Long term (current) use of insulin; Z79.899 Other long term (current) drug therapy; Z88.0 Allergy status to penicillin; Z82.49 Family history of ischemic heart disease and other diseases of the circulatory system; Z83.3 Family history of diabetes mellitus; Z83.438 Family history of other disorder of lipoprotein metabolism and other lipidemia
CPT/HCPCS: 71046; 80048; 80076; 83880; 84484; 85025; 93005; 99285

== ENCOUNTER 2022-03-19 23:58 | Emergency (ER) | payer OTHER, SELFPAY ==
[2022-03-19 23:57] VITALS: BP 203/100; PULSE 123; RESP 18; TEMP 37.2; O2SAT 91; BMI 29.7
[2022-03-20] VITALS (18 sets, daily range): BP systolic 163–205; BP diastolic 81–107; PULSE 78–122; RESP 16–35; TEMP 37.2; O2SAT 98–100; BMI 29.0
[2022-03-20 00:15] LABS: Basophils # 0.3 K/mm3 (0-0.2); Basophils % 3.3 % (0.1-2.0); Eosinophils # 0.2 K/mm3 (0.0-0.4); Eosinophils % 1.9 % (0.1-12.0); Hematocrit 33.3 % (42.0-52.0); Hemoglobin 10.2 g/dL (14.1-18.0); Lymphocytes # 2.4 K/mm3 (0.7-4.5); Lymphocytes % 23.7 % (10-50); Mean Corpuscular HGB Conc 30.7 g/dL (31.8-35.4); Mean Corpuscular Hemoglobin 30.4 pg (27.0-31.2); Mean Corpuscular Volume 98.8 fl (80-94); Mean Platelet Volume 9.8 fl (7.4-10.4); Monocytes # 0.4 K/mm3 (0.1-1.0); Monocytes % 4.2 % (1.7-9.3); Neutrophils # 6.9 K/mm3 (1.8-7.8); Neutrophils % 66.8 % (37.0-80.0); Platelet Count 231 K/mm3 (142-424); Red Blood Count 3.37 M/mm3 (4.60-6.20); Red Cell Distribution Width 14.8 % (11.5-17.5); White Blood Count 10.3 K/mm3 (4.8-10.8)
[2022-03-20 00:17] LABS: Chloride 86 mmol/L (98-107); Potassium 4.8 mmoL/L (3.5-5.1); Sodium 125 mmol/L (136-145)
[2022-03-20 00:20] LABS: Alanine Aminotransferase 39 U/L (12-78); Albumin Level 3.9 g/dl (3.5-5.0); Albumin/Globulin Ratio 1.5 (1.1-1.8); Alkaline Phosphatase 246 U/L (38-126); Anion Gap 20.8 mEq/L (5-15); Aspartate Amino Transferase 47 U/L (17-59); Bilirubin,Total 0.5 mg/dl (0.2-1.3); Blood Urea Nitrogen 35 mg/dl (9-20); Calcium 8.9 mg/dl (8.4-10.2); Carbon Dioxide 23 mmol/L (22.0-30.0); Creatinine Clearance Estimated 25 mL/min (50-200); Estimated Glomerular Filt Rate 14 ml/min (>60); Globulin 2.6 g/dL (1.3-3.2); Total Protein,Serum 6.5 g/dl (6.3-8.2)
[2022-03-20 00:23] LABS: Ethyl Alcohol < 10 mg/dl (0-10)
--- NOTE | 2022-03-20 00:26 | XR_ITS ---
PROCEDURE INFORMATION: Exam: XR Chest Exam date and time: 03/20/2022 12:26 AM Age: 41 years old Clinical indication: Device placement; Ett placement (vent status); Additional info: Seizures TECHNIQUE: Imaging protocol: XR of the chest. Views: 1 view. COMPARISON: CR XR CHEST 2V 03/11/2022 1:19 PM FINDINGS: Tubes, catheters and devices: Endotracheal tube is present with tip 1.5 cm above the ronel, deviating towards the right main bronchus. At time of dictation, this has already been adjusted into appropriate position. Right IJ approach dual lumen central venous catheter with tips near the superior cavoatrial junction. compliance monitor leads overlie the chest. Lungs: Probable mild pulmonary edema. Pleural spaces: Layering right pleural effusion appears moderate in size. Small left pleural effusion, partially obscured. No pneumothorax is seen. Heart/Mediastinum: Cardiomegaly. Bones/joints: Degenerative changes. IMPRESSION: 1. Endotracheal tube is low lying, deviated towards the right main bronchus. This has already been corrected on follow-up. 2. Mild pulmonary edema. Right greater than left pleural effusions.
[2022-03-20 00:30] LABS: GFR (African American) 16 ML/MIN (>60); Glucose 1222 mg/dl (74-100)
--- NOTE | 2022-03-20 00:30 | PC.NURSE ---
CRITICAL LABS GIVEN TO Carissa MCCAULEY RN, DOCTOR AWARE
[2022-03-20 00:31] LABS: Acetone, Serum (Rapid) None Detected (None Detect)
--- NOTE | 2022-03-20 00:35 | XR_ITS ---
PROCEDURE INFORMATION: Exam: XR Chest Exam date and time: 03/20/2022 12:31 AM Age: 41 years old Clinical indication: Device placement; Ett placement (vent status); Additional info: Seizures TECHNIQUE: Imaging protocol: XR of the chest. Views: 1 view. COMPARISON: CR XR CHEST PORTABLE 03/20/2022 12:26 AM FINDINGS: Tubes, catheters and devices: Endotracheal tube present with tip now 4.4 cm above the ronel, in satisfactory position following adjustment. Right dual lumen central venous catheter with tips near the cavoatrial junction. Additional cardiac monitoring leads overlie the chest. Lungs: Central vascular congestion with hazy perihilar opacities suspicious for pulmonary edema. Probable compressive atelectasis at the lung bases, versus pneumonia in the appropriate setting. Pleural spaces: Layering right pleural effusion, probably moderate in size. Small left pleural effusion, partially obscured. No pneumothorax is seen. Heart/Mediastinum: Cardiomegaly. Bones/joints: Unremarkable. IMPRESSION: 1. Satisfactory position of the endotracheal tube following adjustment. 2. Otherwise similar appearance of bilateral pleural effusions and pulmonary edema compared to recent prior.
[2022-03-20 00:42] LABS: Coronavirus 19, PCR Not Detected (NotDetected); Influenza A, PCR Not Detected (NotDetected); Influenza B, PCR Not Detected (NotDetected)
--- NOTE | 2022-03-20 00:59 | PC.NURSE ---
Patient arrived via ems 0000 It was noted at approximately 0005 that patient had greater than 30 seconds of apnea. MD and respiratory therapy was immediately notified. MD arrived at bedside at 0006. Patient placed on zole. Requested rapid intubation box. 0008 RT Will arrived at patient bedside. 0014 MD requested 30 etomidate IV and 70mg succinylcholine. Medications dosing verified with Colby Keita. 0025 Patient intubated. ET tube 24 @ lip. Verified via xray. ET tube readjusted and brought to 23 @ lip by rt per MD request. Placement reverified. 0030 Central line placed via sterile field in patients left femoral. 0033 Propofol started at 50mg/ml per md request. 0045 NG tube placed in right nare taped at 55. Hooked to lower intermittent suction with 100ml immediate return.
[2022-03-20 01:08] LABS: Microscopic, Urine URINE MICROSCOPIC (MICROSCOPIC)
[2022-03-20 01:09] LABS: Appearance,Urine CLEAR (Clear); Bilirubin,Urine Negative (Negative); Blood, Urine 2+ (Negative); Color,Urine YELLOW (Yellow); Glucose,Urine (UA) 3+ (Negative); Ketones,Urine Negative (Negative); Leukocyte Esterase,Urine Negative (Negative); Nitrate,Urine Negative (Negative); PH,Urine 8.5 (5.0-8.5); Protein,Urine 3+ (Negative); Specific Gravity, Urine 1.015 (1.005-1.030); Urobilinogen,Urine 0.2 EU/dl (0.2)
[2022-03-20 01:11] LABS: Amorphous Sediment,Urine Trace /lpf; RBC,Urine Occasional #/hpf (0-3)
[2022-03-20 01:14] LABS: VBG Base Excess 1.3 mmol/L (-2.4-2.3); VBG HCO3 25.7 mmol/L (23-30); VBG Oxygen Saturation 68.2 % (50-70); VBG PH 7.43 mmol/L (7.31-7.41); VBG PO2 35.6 mmol/L (28-40); VBG Total CO2 26.9 mmol/L (23-27)
[2022-03-20 01:19] LABS: Barbiturates Screen,Urine Negative ng/ml (<200)
[2022-03-20 01:20] LABS: Amphetamine/Metha Screen,Urine Negative ng/ml (<1000); Benzodiazepines Screen,Urine Negative ng/ml (<200)
[2022-03-20 01:21] LABS: Cannabinoid Screen,Urine Negative ng/ml (<50); Cocaine Screen,Urine Negative ng/ml (<300)
[2022-03-20 01:22] LABS: Methadone Screen,Urine Negative ng/ml (<300)
[2022-03-20 01:23] LABS: Opiate Screen,Urine Negative ng/ml (<300); Phencyclidine Screen,Urine Negative ng/ml (<25)
[2022-03-20 01:24] LABS: Chloride 86 mmol/L (98-107); Sodium 122 mmol/L (136-145)
[2022-03-20 01:25] LABS: Potassium 5.4 mmoL/L (3.5-5.1)
[2022-03-20 01:27] LABS: Blood Urea Nitrogen 40 mg/dl (9-20); Creatinine Clearance Estimated 26 mL/min (50-200); Estimated Glomerular Filt Rate 14 ml/min (>60); GFR (African American) 17 ML/MIN (>60)
[2022-03-20 01:28] LABS: Anion Gap 14.4 mEq/L (5-15); Calcium 8.1 mg/dl (8.4-10.2); Carbon Dioxide 27 mmol/L (22.0-30.0)
[2022-03-20 01:32] LABS: Lactic Acid 2.2 mmol/L (0.7-2.1)
--- NOTE | 2022-03-20 01:37 | PC.NURSE ---
phone call to re: transfer
[2022-03-20 01:39] LABS: Glucose 1216 mg/dl (74-100)
--- NOTE | 2022-03-20 01:40 | PC.NURSE ---
Critical glucose of 1216 called by Sher in lab. notified. Insulin drip titrated according to protocol.
--- NOTE | 2022-03-20 01:40 | PC.NURSE ---
Creatinine of 4.6 called by Sher in lab. notified. No new orders.
--- NOTE | 2022-03-20 01:46 | HMH.EDGENADL ---
ED Disposition Clinical Impression: Hyperglycemia due to diabetes mellitus, Encephalopathy Disposition: Xfer Critical Access Hosp Condition on Discharge: Serious Instructions: Type 1 Diabetes, DI for Hyperglycemia -- Adult, Encephalopathy Referrals: Juliann Wren MD [Primary Care Provider] - Forms: Transfer Record - ED - Critical Care Critical Care Time: No Attestation: On 03/19/22, the high probability of a clinically significant, sudden or life threatening deterioration of the following system(s) required my full and direct attention, intervention and personal management. The time I documented below is in addition to time spent performing reported procedures but includes the following listed in this critical care notation. Total Critical Care Time: 30 Vital system(s) involved:: Circulatory Failure, Respiratory Failure My critical care processes included: Assessment & monitoring of V/S, Initial and Re-exams, Data Review/Interpretation, Coordinating Care, Medication Orders and management, Documentation Medical Decision Making - Medical Records Medical records reviewed: Yes: I reviewed the patient's medical records. - Michael Inquiry Pt receiving controlled substance: No Vital Signs: 03/19/22 23:57 03/20/22 00:00 03/20/22 00:18 Temperature 99.0 F Temperature Source Rectal Pulse Rate 122 H Pulse Rate [Right] 123 H Respiratory Rate 18 35 H Blood Pressure 202/103 H 203/105 H Blood Pressure [Right Arm] 203/100 H Blood Pressure Mean 137 Blood Pressure Mean [Right Arm] 134 02 Sat by Pulse Oximetry 91 L 98 Oxygen Delivery Method Room Air Mechanical Ventilation 03/20/22 00:30 03/20/22 00:45 03/20/22 00:56 Temperature Temperature Source Pulse Rate 102 H 110 H 82 Pulse Rate [Right] Respiratory Rate 22 20 20 Blood Pressure 205/104 H 205/107 H 173/87 H Blood Pressure [Right Arm] Blood Pressure Mean 144 139 115 Blood Pressure Mean [Right Arm] 02 Sat by Pulse Oximetry 100 98 99 Oxygen Delivery Method Mechanical Ventilation Mechanical Ventilation 03/20/22 01:00 03/20/22 01:04 03/20/22 01:20 Temperature Temperature Source Pulse Rate 84 82 80 Pulse Rate [Right] Respiratory Rate 20 20 20 Blood Pressure 173/88 H 174/92 H 175/86 H Blood Pressure [Right Arm] Blood Pressure Mean 116 119 115 Blood Pressure Mean [Right Arm] 02 Sat by Pulse Oximetry 99 99 99 Oxygen Delivery Method Mechanical Ventilation Mechanical Ventilation 03/20/22 01:27 03/20/22 01:30 03/20/22 01:40 Temperature Temperature Source Pulse Rate 79 79 78 Pulse Rate [Right] Respiratory Rate 20 20 20 Blood Pressure 171/83 H 168/83 H 163/81 H Blood Pressure [Right Arm] Blood Pressure Mean 112 111 108 Blood Pressure Mean [Right Arm] 02 Sat by Pulse Oximetry 99 99 99 Oxygen Delivery Method Mechanical Ventilation 03/20/22 01:54 03/20/22 02:00 03/20/22 02:10 Temperature Temperature Source Pulse Rate 80 Pulse Rate [Right] Respiratory Rate 16 Blood Pressure 174/96 H 183/89 H 175/90 H Blood Pressure [Right Arm] Blood Pressure Mean 104 120 125 Blood Pressure Mean [Right Arm] 02 Sat by Pulse Oximetry Oxygen Delivery Method 03/20/22 02:20 03/20/22 02:28 03/20/22 02:30 Temperature Temperature Source Pulse Rate 80 Pulse Rate [Right] Respiratory Rate 18 Blood Pressure 177/91 H 177/91 H 178/92 H Blood Pressure [Right Arm] Blood Pressure Mean 119 120 Blood Pressure Mean [Right Arm] 02 Sat by Pulse Oximetry Oxygen Delivery Method 03/20/22 03:27 Temperature 99.0 F Temperature Source Oral Pulse Rate 83 Pulse Rate [Right] Respiratory Rate 20 Blood Pressure 178/87 H Blood Pressure [Right Arm] Blood Pressure Mean Blood Pressure Mean [Right Arm] 02 Sat by Pulse Oximetry Oxygen Delivery Method Mechanical Ventilation - Lab Data Lab results reviewed: Yes: I reviewed the patient's lab results. Lab Results
--- NOTE | 2022-03-20 01:48 | PC.NURSE ---
phone call to [facility], they are flying and are on standby
--- NOTE | 2022-03-20 01:49 | PC.NURSE ---
ER doctor on phone with [facility] MD's
--- NOTE | 2022-03-20 01:52 | PC.NURSE ---
pt's belongings given to beti @ this time
--- NOTE | 2022-03-20 01:53 | PC.NURSE ---
patient will be direct admit to ICU at , Dr. Jones accepting. ICU will contact us
--- NOTE | 2022-03-20 02:04 | PC.NURSE ---
glucometer reading high. blood sent to lab for glucose.
--- NOTE | 2022-03-20 02:20 | PC.NURSE ---
room assignment given to Rosalie Keita RN. [facility] contacted ETA 12 minutes after lift off, they will call when they are in the air
--- NOTE | 2022-03-20 02:21 | PC.NURSE ---
Rosalie Keita on phone with [facility] ICU giving report
--- NOTE | 2022-03-20 02:28 | PC.NURSE ---
phone call from [facility], they are in the air ETA 10 min
[2022-03-20 02:29] LABS: Glucose,Random 1192 mg/dL (74-100)
--- NOTE | 2022-03-20 02:30 | PC.NURSE ---
MD AWARE OF BLOOD SUGAR VALUE.
== END 2022-03-20 03:28 | disposition critical access hospital (66) ==
PROVIDERS: Emergency Provider Student in an Organized Health Care Education/Training Program; PCP Family Medicine
DX: G93.40 Encephalopathy, unspecified (principal); E10.65 Type 1 diabetes mellitus with hyperglycemia; Z79.4 Long term (current) use of insulin; R56.9 Unspecified convulsions; Z88.0 Allergy status to penicillin; Z79.899 Other long term (current) drug therapy; Z87.891 Personal history of nicotine dependence
CPT/HCPCS: 31500; 36556; 96365; 96366 ×6; 51702; 71045; 80048; 80053; 80305; 81001; 82009; 82803; 82947; 83605; 85025; 99291; C1751; C9803; J0330; J2704; U0003; U0005

== ENCOUNTER 2022-05-08 11:20 | Emergency (ER) | payer OTHER, SELFPAY ==
[2022-05-08 11:21] VITALS: BP 158/119; PULSE 102; RESP 20; TEMP 36.8; O2SAT 98; BMI 23.4
--- NOTE | 2022-05-08 11:31 | HMH.EDSOB ---
ED Disposition Clinical Impression: Hyperkalemia, Hyperglycemia due to diabetes mellitus, Pleural effusion Renal failure, chronic Qualifiers: Chronic kidney disease stage: stage 4 (severe) Qualified Code(s): N18.4 - Chronic kidney disease, stage 4 (severe) Disposition: Left Against Medical Advice Condition on Discharge: Serious Additional Instructions: Please return to the emergency department immediately if you change your mind regarding the admission that we have offered you. You are at high risk of having a cardiac arrest due to your high potassium. Your glucose was also very high. We will come to return at any time if you change your mind. Follow-up with your primary care physician as soon as possible. Take all medications as prescribed. Keep all appointments with dialysis as scheduled. Referrals: Miriam Hairston APRN [Primary Care Provider] - - Critical Care Critical Care Time: No Attestation: On 05/08/22, the high probability of a clinically significant, sudden or life threatening deterioration of the following system(s) required my full and direct attention, intervention and personal management. The time I documented below is in addition to time spent performing reported procedures but includes the following listed in this critical care notation. Medical Decision Making - Medical Records Medical records reviewed: Yes: I reviewed the patient's medical records. - Michael Inquiry Pt receiving controlled substance: No Vital Signs: 05/08/22 11:21 Temperature 98.2 F Temperature Source Oral Pulse Rate [Radial] 102 H Respiratory Rate 20 Blood Pressure [Right Arm] 158/119 H Blood Pressure Mean [Right Arm] 132 Blood Pressure Position [Right Arm] Sitting 02 Sat by Pulse Oximetry 98 Oxygen Delivery Method Room Air - Lab Data Lab results reviewed: Yes: I reviewed the patient's lab results. Lab Results 05/08/22 10:35: Acetone Level None detected 05/08/22 11:35: WBC 7.5, RBC 3.55 L, Hgb 10.2 L, Hct 35.8 L, MCV 101.0 H, MCH 28.8, MCHC 28.6 L, RDW 15.7, Plt Count 276, MPV 9.2, Neut % (Auto) 68.7, Lymph % (Auto) 19.4, [place] % (Auto) 4.8, Eos % (Auto) 4.4, Baso % (Auto) 2.6 H, Neut # (Auto) 5.1, Lymph # (Auto) 1.5, [place] # (Auto) 0.4, Eos # (Auto) 0.3, Baso # (Auto) 0.2 05/08/22 11:35: Sodium 128 L, Potassium 6.6 H*, Chloride 92 L, Carbon Dioxide 26, Anion Gap 16.6 H, BUN 48 H, Creatinine 5.60 H, Estimated Creat Clear 18, Estimated GFR 11 L*, Est GFR ( Amer) 14 L*, Glucose 778 H*, Calcium 9.5, Total Bilirubin 0.5, AST 50, ALT 67, Alkaline Phosphatase 306 H, Troponin I 0.04 H, Total Protein 7.0, Albumin 4.3, Globulin 2.7, Albumin/Globulin Ratio 1.6 Result diagrams: 05/08/22 11:35 05/08/22 11:35 Orders (Tests/Meds): ED MEDICATIONS Generic Name Dose Route Start Last Admin Trade Name Freq PRN Reason Stop Dose Admin Insulin Human Regular 100 unit 101 mls @ 10.1 mls/hr 05/08/22 12:30 05/08/22 13:06 / Sodium Chloride IV 06/07/22 12:29 Not Given .Q10H CASTILLO Protocol 10 UNIT/HR Sodium Chloride 1,000 mls @ 100 mls/hr 05/08/22 12:45 05/08/22 13:06 Sod Chlor 0.9% 1000ml Bag IV 06/07/22 12:44 Not Given .Q10H CASTILLO Discontinued Medications Generic Name Dose Route Start Last Admin Trade Name Freq PRN Reason Stop Dose Admin Sodium Polystyrene Sulfonate 15 gm 05/08/22 12:19 05/08/22 13:06 Sodium Poly Sulfon 15gm/60ml Oral.Susp PO 05/08/22 12:20 Not Given ONCE ONE ORDERS Category Date Time Status Rapid PCR Covid and Flu A/B Stat Lab 05/08/22 12:43 Received Troponin I Q3H Lab 05/08/22 14:45 Ordered Troponin I Q3H Lab 05/08/22 17:45 Ordered Blood Culture Stat Micro 05/08/22 10:35 Received ECG Request by /Darryl Stat Y 05/08/22 11:38 Ordered - Radiology Data #1 Image(s): Chest Image Reviewed: Yes I reviewed the patient's radiology image, Yes I have reviewed radiologist's interpretation Preliminary Findings: Abnormal (Bilateral pleural effusion a
--- NOTE | 2022-05-08 11:38 | XR_ITS ---
PROCEDURE INFORMATION: Exam: XR Chest Exam date and time: 05/08/2022 11:49 AM Age: 41 years old Clinical indication: Shortness of breath; Additional info: SOB TECHNIQUE: Imaging protocol: Radiologic exam of the chest. Views: 1 view. COMPARISON: CR XR CHEST PORTABLE 03/20/2022 12:31 AM FINDINGS: Tubes, catheters and devices: Endotracheal tube no longer demonstrated. Persistent right central venous catheter with the tip near the atrial caval junction. Lungs: Unremarkable. No consolidation. Pleural spaces: Bilateral pleural effusions. Heart/Mediastinum: Unremarkable. No cardiomegaly. Diaphragm: Right hemidiaphragm obscured. Bones/joints: Unremarkable. IMPRESSION: 1. Bilateral pleural effusions. 2. Right lower lobe region of consolidation versus atelectasis.
--- NOTE | 2022-05-08 11:38 | ECG_ITS ---
APPROVED REPORT Exam: Resting ECG HR:96 bpm ECG Measurements Heart Rate 96 AXES WV 155 P 52 QRSd 93 QRS -18 QT 342 T 93 QTc 396 Conclusion SINUS RHYTHM POSSIBLE LEFT ATRIAL ENLARGEMENT [-0.1mV P-WAVE IN V1/V2] SEPTAL MYOCARDIAL INFARCTION , OF INDETERMINATE AGE [40+ ms Q WAVE IN V1/V2] ABNORMAL ECG UNCONFIRMED REPORT Electronically signed by : Sid Grossman MD 05/09/2022 21:29:02
--- NOTE | 2022-05-08 11:52 | PC.NURSE ---
XR AT BEDSIDE
[2022-05-08 11:54] LABS: Basophils # 0.2 K/mm3 (0-0.2); Basophils % 2.6 % (0.1-2.0); Eosinophils # 0.3 K/mm3 (0.0-0.4); Eosinophils % 4.4 % (0.1-12.0); Hematocrit 35.8 % (42.0-52.0); Hemoglobin 10.2 g/dL (14.1-18.0); Lymphocytes # 1.5 K/mm3 (0.7-4.5); Lymphocytes % 19.4 % (10-50); Mean Corpuscular HGB Conc 28.6 g/dL (31.8-35.4); Mean Corpuscular Hemoglobin 28.8 pg (27.0-31.2); Mean Platelet Volume 9.2 fl (7.4-10.4); Monocytes # 0.4 K/mm3 (0.1-1.0); Monocytes % 4.8 % (1.7-9.3); Neutrophils # 5.1 K/mm3 (1.8-7.8); Neutrophils % 68.7 % (37.0-80.0); Platelet Count 276 K/mm3 (142-424); Red Blood Count 3.55 M/mm3 (4.60-6.20); Red Cell Distribution Width 15.7 % (11.5-17.5); White Blood Count 7.5 K/mm3 (4.8-10.8)
[2022-05-08 12:00] LABS: Chloride 92 mmol/L (98-107)
[2022-05-08 12:01] LABS: Sodium 128 mmol/L (136-145)
[2022-05-08 12:03] LABS: Alanine Aminotransferase 67 U/L (12-78); Alkaline Phosphatase 306 U/L (38-126); Aspartate Amino Transferase 50 U/L (17-59); Bilirubin,Total 0.5 mg/dl (0.2-1.3); Blood Urea Nitrogen 48 mg/dl (9-20); Creatinine Clearance Estimated 18 mL/min (50-200); Estimated Glomerular Filt Rate 11 ml/min (>60); GFR (African American) 14 ML/MIN (>60)
[2022-05-08 12:04] LABS: Albumin Level 4.3 g/dl (3.5-5.0); Albumin/Globulin Ratio 1.6 (1.1-1.8); Anion Gap 16.6 mEq/L (5-15); Calcium 9.5 mg/dl (8.4-10.2); Carbon Dioxide 26 mmol/L (22.0-30.0); Globulin 2.7 g/dL (1.3-3.2)
[2022-05-08 12:16] LABS: Troponin I 0.04 ng/ml (0.00-0.034)
[2022-05-08 12:17] LABS: Glucose 778 mg/dl (74-100); Potassium 6.6 mmoL/L (3.5-5.1)
--- NOTE | 2022-05-08 12:20 | PC.NURSE ---
dr mcleod informed of critical lab values
--- NOTE | 2022-05-08 12:41 | PC.NURSE ---
paged service (GEORGINA) for consult
--- NOTE | 2022-05-08 12:43 | PC.NURSE ---
DR ERICKSON RETURNED PAGE
--- NOTE | 2022-05-08 12:44 | PC.NURSE ---
NASAL SWAB OBTAINED
[2022-05-08 12:47] LABS: Coronavirus 19, PCR Not Detected (NotDetected); Influenza A, PCR Not Detected (NotDetected); Influenza B, PCR Not Detected (NotDetected)
[2022-05-08 12:47] LABS: Acetone, Serum (Rapid) None Detected (None Detect)
--- NOTE | 2022-05-08 13:00 | PC.NURSE ---
PT STATES HE IS UNABLE TO STAY FOR ADMISSION R/T [employer]RA[employer] ISSUES AND HIS IS AT WORK. THE NEIGHBOR IS CURRENTLY WATCHING HIS CHILDREN AND SHE HAS TO BE AT WORK AT 1430 MD AT BEDSIDE SPEAKING WITH PT
--- NOTE | 2022-05-08 13:05 | PC.NURSE ---
paged DR ERICKSON for pt wanting to leave AMA
--- NOTE | 2022-05-08 13:24 | PC.NURSE ---
DR. ERICKSON NOTIFIED THAT PT REFUSED ADMISSION
[2022-05-08 13:29] VITALS: BP 126/74; PULSE 78; RESP 16; TEMP 36.6; O2SAT 98
== END 2022-05-08 13:34 | disposition left against medical advice (07) ==
PROVIDERS: Emergency Provider Emergency Medicine; PCP Nurse Practitioner Family
DX: E87.5 Hyperkalemia (principal); E10.65 Type 1 diabetes mellitus with hyperglycemia; J90 Pleural effusion, not elsewhere classified; N18.4 Chronic kidney disease, stage 4 (severe); Z88.0 Allergy status to penicillin; E78.5 Hyperlipidemia, unspecified; D64.9 Anemia, unspecified; K76.9 Liver disease, unspecified; N31.9 Neuromuscular dysfunction of bladder, unspecified; Z53.29 Procedure and treatment not carried out because of patient's decision for other reasons
CPT/HCPCS: 71045; 80053; 82009; 84484; 85025; 87040; 93005; 96374; 99284; C9803; U0003; U0005

== ENCOUNTER 2022-07-02 15:33 | Emergency (ER) | payer OTHER, SELFPAY ==
[2022-07-02] VITALS (9 sets, daily range): BP systolic 171–205; BP diastolic 85–106; PULSE 86–116; RESP 16–22; TEMP 36.8–37.7; O2SAT 96–99; BMI 27.3
--- NOTE | 2022-07-02 15:36 | CT_ITS ---
PROCEDURE INFORMATION: Exam: CT Head Without Contrast Exam date and time: 07/02/2022 3:42 PM Age: 41 years old Clinical indication: Stroke-like symptoms; Altered mental status/memory loss; Additional info: Seizure confused, wanted read stat stroke protocol TECHNIQUE: Imaging protocol: Computed tomography of the head without contrast. Radiation optimization: All CT scans at this facility use at least one of these dose optimization techniques: automated exposure control; mA and/or kV adjustment per patient size (includes targeted exams where dose is matched to clinical indication); or iterative reconstruction. Other technique: STROKE PROTOCOL was implemented. COMPARISON: CT HEAD/BRAIN WO CON 12/19/2021 7:24 PM FINDINGS: Brain: There is volume loss, advanced for age. There is white matter lucency consistent with chronic microvascular disease. No evidence of acute infarct. No hemorrhage or extra-axial collection. There is no mass. Cerebral ventricles: No ventriculomegaly. Paranasal sinuses: Visualized sinuses are unremarkable. No fluid levels. Mastoid air cells: Visualized mastoid air cells are well aerated. Bones/joints: Unremarkable. No acute fracture. Soft tissues: Unremarkable. IMPRESSION: 1. There is volume loss and chronic microvascular disease. 2. No acute intracranial lesion or injury and no change from prior scan. ASSESSMENT: ASPECTS ([place] Stroke Program Early CT Score) is 10.
--- NOTE | 2022-07-02 15:37 | HMH.EDAMS ---
Discharge Plan Disposition Patient Disposition: Xfer Short-Term Hosp Chief Complaint: Hyper/Hypoglycemia Prescriptions Prescriptions: No Action gabapentin 600 MG tablet 600 mg PO HS nifedipine 30 MG tablet extended release 24 hr 90 mg PO DAILY valsartan 320 MG tablet 320 mg PO DAILY calcitriol 0.25 MCG capsule 0.25 mcg PO DAILY insulin aspart U-100 100 UNIT/ML solution 2 units SQ AC insulin glargine 100 UNIT/ML insulin pen 15 units SQ DAILY Qty: 0 0RF levofloxacin 250 MG tablet 250 mg PO Q48H 6 Days Qty: 3 0RF carvedilol 12.5 MG tablet 12.5 mg PO BID bumetanide 1 MG tablet 2 mg PO DAILY Referrals Follow up/Referrals: Provider,Referral, MD [Primary Care Provider] - See instructions Clinical Impressions Clinical Impression: CVA (cerebral vascular accident), Acute hyperkalemia Stand Alone Forms Stand Alone Forms: Transfer Record - ED Instructions Patient Instructions: DI for Hyperglycemia -- Adult Discharge ED Provider: Baldo Zuniga Altered Mental Status HPI General Chief Complaint: Hyper/Hypoglycemia Stated Complaint: ams Time Seen by Provider: 07/02/22 15:37 Mode of Arrival: EMS Source of Information: EMS Limitations: Altered Mental Status History of Present Illness HPI narrative: outside at event in wheelchair, became altered, blank stare, drooling, 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, confusion and weakness Onset (ago): minute(s) Severity: moderate Consistency of symptoms: constant Associated symptoms: denies other symptoms Related Data Home Medications Medication Instructions Recorded Confirmed gabapentin 600 mg tablet 600 mg PO HS Pain 01/29/21 12/27/21 bumetanide 1 mg tablet 2 mg PO DAILY Fluid 12/07/21 12/27/21 carvedilol 12.5 mg tablet 12.5 mg PO BID Hypertension 12/07/21 12/27/21 calcitriol 0.25 mcg capsule 0.25 mcg PO DAILY Supplement 12/20/21 12/27/21 insulin aspart U-100 100 unit/mL 2 units SQ AC Diabetes 12/20/21 12/27/21 subcutaneous solution nifedipine 30 mg tablet,extended 90 mg PO DAILY ANGINA 12/20/21 12/27/21 release 24 hr valsartan 320 mg tablet 320 mg PO DAILY Hypertension 12/20/21 12/27/21 Previous Rx's Medication Instructions Recorded insulin glargine 100 unit/mL (3 15 units (0.15 mL) SQ DAILY 12/20/21 mL) subcutaneous pen Diabetes ##0 levofloxacin 250 mg tablet 250 mg PO Q48H 6 days #3 tabs 12/27/21 Allergies Allergy/AdvReac Type Severity Reaction Status Date / Time Penicillins [PENICILLINS] Allergy Severe I-HIVES Verified 12/27/21 20:17 PFSH PFS Social History Smoking Status: Never smoker second hand exposure: No alcohol intake: never substance use type: marijuana and opiates current occupational status: disabled household members: significant other and children housing: house current occupation: [employer] current occupational exposures/hazards: No caffeine: Yes ROS Obtained: Yes All systems reviewed & no additional complaints except as documented Physical Exam General General appearance: alert and in no apparent distress Head Head exam: atraumatic and normocephalic Eye Eye exam: Present normal appearance, PERRL and EOMI ENT ENT exam: Present normal exam, normal oropharynx and mucous membranes moist Neck Neck exam: Present normal inspection, full ROM and trachea midline Chest Chest inspection: Present normal inspection and symmetric chest wall rise; Absent tenderness Respiratory Respiratory exam: Present normal lung sounds bilaterally; Absent respiratory distress or wheezes Cardiovascular Cardiovascular exam: Present regular rate and normal rhythm; Absent tachycardia Abdominal Exam Abdominal exam: Absent distention, tenderness or guarding Extremities Exam Extremities exam: Present normal inspection and full ROM; Absent tenderness Back Exam Back exam: Present normal inspection and ful
--- NOTE | 2022-07-02 15:39 | XR_ITS ---
PROCEDURE INFORMATION: Exam: XR Chest Exam date and time: 07/02/2022 3:59 PM Age: 41 years old Clinical indication: Shortness of breath; Additional info: Seizure TECHNIQUE: Imaging protocol: Radiologic exam of the chest. Views: 1 view. COMPARISON: CR XR CHEST PORTABLE 05/08/2022 11:49 AM FINDINGS: Tubes, catheters and devices: Tip of catheter in right atrium. Lungs: Lung bases partially obscured. There is atelectasis at the lung bases. Pneumonia cannot be excluded. There is central pulmonary vascular congestion. Pleural spaces: There are bilateral pleural effusions, larger on the right.. These have increased in size compared with prior x-ray. Heart/Mediastinum: Unremarkable. No cardiomegaly. Bones/joints: Unremarkable. IMPRESSION: 1. Bilateral pleural effusions, larger on the right. There is increased in size from prior x-ray. There is underlying lower lobe atelectasis and pneumonia could not be excluded as the lung bases are obscured. 2. There is central pulmonary vascular congestion.
--- NOTE | 2022-07-02 15:49 | PC.NURSE ---
pt to ct
--- NOTE | 2022-07-02 16:13 | PC.NURSE ---
placed call to [facility] stroke team, dr nicholson to call back
[2022-07-02 16:24] LABS: Acetone, Serum (Rapid) Small (None Detect); Alanine Aminotransferase 35 U/L (12-78); Albumin Level 3.4 g/dl (3.5-5.0); Albumin/Globulin Ratio 1.3 (1.1-1.8); Alkaline Phosphatase 214 U/L (38-126); Aspartate Amino Transferase 36 U/L (17-59); Basophils # 0.1 K/mm3 (0-0.2); Basophils % 0.8 % (0.1-2.0); Bilirubin,Total 0.4 mg/dl (0.2-1.3); Blood Urea Nitrogen 24 mg/dl (9-20); Calcium 7.9 mg/dl (8.4-10.2); Carbon Dioxide 24 mmol/L (22.0-30.0); Chloride 90 mmol/L (98-107); Creatinine Clearance Estimated 23 mL/min (50-200); Eosinophils # 0.1 K/mm3 (0.0-0.4); Eosinophils % 0.7 % (0.1-12.0); Globulin 2.6 g/dL (1.3-3.2); Hematocrit 31.8 % (42.0-52.0); Hemoglobin 9.5 g/dL (14.1-18.0); Lymphocytes # 1.1 K/mm3 (0.7-4.5); Lymphocytes % 15.9 % (10-50); Mean Corpuscular HGB Conc 29.9 g/dL (31.8-35.4); Mean Corpuscular Hemoglobin 29.5 pg (27.0-31.2); Mean Corpuscular Volume 98.7 fl (80-94); Mean Platelet Volume 9.2 fl (7.4-10.4); Monocytes # 0.3 K/mm3 (0.1-1.0); Monocytes % 4.3 % (1.7-9.3); Neutrophils # 5.3 K/mm3 (1.8-7.8); Neutrophils % 78.3 % (37.0-80.0); Platelet Count 211 K/mm3 (142-424); Red Blood Count 3.22 M/mm3 (4.60-6.20); Red Cell Distribution Width 16.1 % (11.5-17.5); Sodium 125 mmol/L (136-145); White Blood Count 6.8 K/mm3 (4.8-10.8)
--- NOTE | 2022-07-02 16:26 | PC.NURSE ---
Dr Zuniga on with Dr Portillo at
[2022-07-02 16:30] LABS: Coronavirus 19, PCR Not Detected (NotDetected); Influenza A, PCR Not Detected (NotDetected); Influenza B, PCR Not Detected (NotDetected)
[2022-07-02 16:35] LABS: Troponin I 0.03 ng/ml (0.00-0.034)
[2022-07-02 16:36] LABS: VBG HCO3 21.6 mmol/L (23-30); VBG PCO2 31.1 mmol/L (35-51); VBG PH 7.46 mmol/L (7.31-7.41); VBG PO2 182.7 mmol/L (28-40); VBG Total CO2 22.5 mmol/L (23-27)
[2022-07-02 16:37] LABS: VBG Base Excess -2.3 mmol/L (-2.4-2.3); VBG Oxygen Saturation 99.5 % (50-70)
[2022-07-02 16:37] LABS: GFR (African American) 16 ML/MIN (>60); Glucose 894 mg/dl (74-100)
[2022-07-02 16:38] LABS: Estimated Glomerular Filt Rate 14 ml/min (>60)
--- NOTE | 2022-07-02 16:41 | PC.NURSE ---
spoke with pt's SO states no recent surgeries, no bleeding issues. pt last dialysis was yesterday
--- NOTE | 2022-07-02 16:44 | PC.NURSE ---
spoke with pharmacy regarding TPA dosing
[2022-07-02 16:45] LABS: INR 1.02 (0.9-1.1); Prothrombin Time 11.5 seconds (10.1-12.5)
--- NOTE | 2022-07-02 17:03 | PC.NURSE ---
[facility] called for transport
--- NOTE | 2022-07-02 17:15 | PC.NURSE ---
stayed at pt's bedside during iv infusion of tpa. no change in pt's symptoms
--- NOTE | 2022-07-02 17:30 | PC.NURSE ---
no change in NIH score
--- NOTE | 2022-07-02 17:50 | PC.NURSE ---
report called to [facility]
--- NOTE | 2022-07-02 17:55 | PC.NURSE ---
report given squad.
== END 2022-07-02 17:46 | disposition short-term general hospital (02) ==
PROVIDERS: Emergency Provider Emergency Medicine
DX: E10.65 Type 1 diabetes mellitus with hyperglycemia (principal); E87.5 Hyperkalemia; I63.9 Cerebral infarction, unspecified; Z88.0 Allergy status to penicillin; N28.9 Disorder of kidney and ureter, unspecified; D64.9 Anemia, unspecified; I10 Essential (primary) hypertension
CPT/HCPCS: 70450; 71045; 80053; 82009; 82803; 83605; 84484; 85025; 85610; 87040; 96365; 96366; 96375; 99291; C9803; J2997; U0003; U0005